=== PATIENT | female | born 1960 | race Caucasian/White ===

== ENCOUNTER 2016-08-18 14:31 | Outpatient (CLI) | payer MEDICARE, MEDICAID | END 2016-08-18 14:32 | disposition critical access hospital (66) | DX: R05 Cough (principal) | CPT/HCPCS: A0425; A0427 ==

== ENCOUNTER 2016-08-18 14:59 | Inpatient (IN) | payer MEDICARE, MEDICAID ==
[2016-08-18] MEDS ORDERED: predniSONE 20 MG TABLET PO STA (15:56)
[2016-08-18] MEDS ORDERED: ONDANSETRON 4 MG/2 ML VIAL IVP STA (15:56)
[2016-08-18] MEDS ORDERED: SODIUM CHLORIDE 0.9% 1,000 ML IV ONE (15:56)
[2016-08-18] MEDS ORDERED: IPRATROPIUM/ALBUTEROL 3 ML NEB INH STA (15:56)
[2016-08-18] MEDS ORDERED: HYDROcod/ACETAM 5/325 MG TABLET PO STA (15:57)
[2016-08-18] MEDS ORDERED: predniSONE 20 MG TABLET ONE (16:01)
[2016-08-18] MEDS ORDERED: ONDANSETRON 4 MG/2 ML VIAL ONE (16:01)
[2016-08-18] MEDS ORDERED: HYDROcod/ACETAM 5/325 MG TABLET ONE (16:01)
[2016-08-18] MEDS ORDERED: cefTRIAXone 1 GM in SODIUM CHLORIDE 0.9% MINIBAG 100 ML IV STA (17:14)
[2016-08-18] MEDS ORDERED: AZITHROMYCIN INJ 500 MG in SODIUM CHLORIDE 0.9% 250 ML IV STA (17:14)
[2016-08-18] MEDS ORDERED: cefTRIAXone 1 GM VIAL ONE (17:24)
[2016-08-18] MEDS ORDERED: SODIUM CHLORIDE 0.9% MINIBAG 100 ML IV ONE (17:24)
[2016-08-18] MEDS ORDERED: oxyCODONE 5 MG TABLET PO STA (17:45)
[2016-08-18] MEDS ORDERED: oxyCODONE 5 MG TABLET ONE (17:51)
[2016-08-18] MEDS ORDERED: ACETAMINOPHEN 325 MG TABLET PO PRN (18:03)
[2016-08-18] MEDS: tiZANidine 4 MG TABLET PO SCH (21:29)
[2016-08-18] MEDS: SODIUM CHLORIDE 0.9% 1,000 ML IV SCH (21:29)
[2016-08-18] MEDS: GABAPENTIN 300 MG CAPSULE PO SCH (21:29)
[2016-08-18] MEDS: NAPROXEN 250 MG TABLET PO SCH (21:29)
[2016-08-18] MEDS: ESCITALOPRAM 10 MG TABLET PO SCH (21:29)
[2016-08-18] MEDS: HYDROcod/ACETAM 5/325 MG TABLET PO PRN (21:30)
[2016-08-18] MEDS: SODIUM CHLORIDE FLUSH 0.9% 10 ML SYRINGE IVP SCH (21:36)
[2016-08-18] MEDS ORDERED: POTASSIUM CHLORIDE 20 MEQ TABLET PO SCH (21:37)
[2016-08-18] MEDS: guaiFENesin/CODEINE 5 ML UDC PO PRN (21:59)
[2016-08-19] MEDS: ONDANSETRON ODT 4 MG TABLET TL PRN (00:08)
[2016-08-19] MEDS: HYDROcod/ACETAM 5/325 MG TABLET PO PRN ×5 (01:24→20:30)
[2016-08-19] MEDS: BENZOCAINE/MENTHOL LOZENGE MM PRN ×4 (01:24→15:58)
[2016-08-19] MEDS: diphenhydrAMINE 25 MG CAPSULE PO PRN ×4 (04:16→20:30)
[2016-08-19] MEDS: guaiFENesin/CODEINE 5 ML UDC PO PRN ×4 (04:16→22:06)
[2016-08-19] MEDS: SODIUM CHLORIDE 0.9% 1,000 ML IV SCH ×2 (06:28→18:37)
[2016-08-19] MEDS: SODIUM CHLORIDE FLUSH 0.9% 10 ML SYRINGE IVP SCH ×3 (06:30→22:06)
[2016-08-19] MEDS: GABAPENTIN 300 MG CAPSULE PO SCH ×3 (06:30→22:06)
[2016-08-19] MEDS: methylPREDNISolone SUCCINATE 40 MG/ML VIAL IVP SCH ×3 (06:30→22:06)
[2016-08-19] MEDS: LEVOTHYROXINE 100 MCG TABLET PO SCH (06:31)
[2016-08-19] MEDS: tiZANidine 4 MG TABLET PO SCH ×3 (06:31→22:06)
[2016-08-19] MEDS: cefTRIAXone 2 GM in SODIUM CHLORIDE 0.9% MINIBAG 100 ML IV SCH (08:20)
[2016-08-19] MEDS: SACCHAROMYCES BOULARDII 250 MG CAPSULE PO SCH ×2 (08:20→16:01)
[2016-08-19] MEDS: NAPROXEN 250 MG TABLET PO SCH ×2 (08:20→20:29)
[2016-08-19] MEDS: ESCITALOPRAM 10 MG TABLET PO SCH ×2 (08:21→20:29)
[2016-08-19] MEDS: POLYETHYLENE GLYCOL 3350 17 GM PACKET PO SCH (08:21)
[2016-08-19] MEDS: busPIRone 5 MG TABLET PO SCH (08:21)
[2016-08-19] MEDS: ALBUTEROL NEB 2.5 MG/3 ML INH PRN ×3 (08:51→16:50)
[2016-08-19] MEDS ORDERED: BUTORPHANOL TOP PRN (09:00)
[2016-08-19] MEDS: AZITHROMYCIN INJ 500 MG in SODIUM CHLORIDE 0.9% 250 ML IV SCH (09:47)
[2016-08-19] MEDS: SODIUM CHLORIDE FLUSH 0.9% 10 ML SYRINGE IVP PRN (13:49)
[2016-08-19] MEDS: ONDANSETRON 4 MG/2 ML VIAL IVP PRN ×2 (15:57→22:06)
[2016-08-20] MEDS: TEMAZEPAM 15 MG CAPSULE PO PRN ×2 (00:06→23:55)
[2016-08-20] MEDS: HYDROcod/ACETAM 5/325 MG TABLET PO PRN ×5 (02:55→20:50)
[2016-08-20] MEDS: ONDANSETRON 4 MG/2 ML VIAL IVP PRN ×3 (02:56→20:50)
[2016-08-20] MEDS: BENZOCAINE/MENTHOL LOZENGE MM PRN ×2 (02:56→08:43)
[2016-08-20] MEDS: guaiFENesin/CODEINE 5 ML UDC PO PRN ×4 (04:03→23:55)
[2016-08-20] MEDS: LEVOTHYROXINE 100 MCG TABLET PO SCH (06:25)
[2016-08-20] MEDS: tiZANidine 4 MG TABLET PO SCH ×3 (06:26→22:07)
[2016-08-20] MEDS: methylPREDNISolone SUCCINATE 40 MG/ML VIAL IVP SCH (06:26)
[2016-08-20] MEDS: SODIUM CHLORIDE FLUSH 0.9% 10 ML SYRINGE IVP SCH ×3 (06:26→22:07)
[2016-08-20] MEDS: GABAPENTIN 300 MG CAPSULE PO SCH ×3 (06:26→22:07)
[2016-08-20] MEDS ORDERED: predniSONE 20 MG TABLET PO SCH ×2 (08:00)
[2016-08-20] MEDS ORDERED: SODIUM CHLORIDE 0.9% 1,000 ML IV SCH (08:00)
[2016-08-20] MEDS: SACCHAROMYCES BOULARDII 250 MG CAPSULE PO SCH ×2 (08:42→16:01)
[2016-08-20] MEDS: NAPROXEN 250 MG TABLET PO SCH ×2 (08:43→20:49)
[2016-08-20] MEDS: busPIRone 5 MG TABLET PO SCH (08:43)
[2016-08-20] MEDS: ESCITALOPRAM 10 MG TABLET PO SCH ×2 (08:43→20:50)
[2016-08-20] MEDS: diphenhydrAMINE 25 MG CAPSULE PO PRN ×3 (08:43→20:50)
[2016-08-20] MEDS: POLYETHYLENE GLYCOL 3350 17 GM PACKET PO SCH (08:44)
[2016-08-20] MEDS: cefTRIAXone 2 GM in SODIUM CHLORIDE 0.9% MINIBAG 100 ML IV SCH (08:44)
[2016-08-20] MEDS: SODIUM CHLORIDE FLUSH 0.9% 10 ML SYRINGE IVP PRN ×3 (08:47→23:55)
[2016-08-20] MEDS: AZITHROMYCIN INJ 500 MG in SODIUM CHLORIDE 0.9% 250 ML IV SCH (10:28)
[2016-08-20] MEDS ORDERED: ALBUTEROL NEB 2.5 MG/3 ML INH PRN (10:40)
[2016-08-20] MEDS: HYDROmorphone 1 MG/ML SYRINGE IVP PRN ×2 (22:05→23:55)
[2016-08-20] MEDS: ALBUTEROL NEB 2.5 MG/3 ML INH PRN (23:47)
[2016-08-21] MEDS: ONDANSETRON ODT 4 MG TABLET TL PRN (02:06)
[2016-08-21] MEDS: guaiFENesin/CODEINE 5 ML UDC PO PRN (06:14)
[2016-08-21] MEDS: GABAPENTIN 300 MG CAPSULE PO SCH ×2 (06:15→14:15)
[2016-08-21] MEDS: tiZANidine 4 MG TABLET PO SCH ×2 (06:15→14:15)
[2016-08-21] MEDS: LEVOTHYROXINE 100 MCG TABLET PO SCH (06:15)
[2016-08-21] MEDS: SODIUM CHLORIDE FLUSH 0.9% 10 ML SYRINGE IVP SCH ×2 (06:16→14:15)
[2016-08-21] MEDS ORDERED: hydrALAZINE INJ 20 MG/ML VIAL IVP SCH (06:21)
[2016-08-21] MEDS: HYDROmorphone 1 MG/ML SYRINGE IVP PRN ×4 (06:23→14:15)
[2016-08-21] MEDS: HYDROcod/ACETAM 5/325 MG TABLET PO PRN (07:50)
[2016-08-21] MEDS: SACCHAROMYCES BOULARDII 250 MG CAPSULE PO SCH (07:50)
[2016-08-21] MEDS ORDERED: predniSONE 20 MG TABLET PO SCH (08:00)
[2016-08-21] MEDS: SODIUM CHLORIDE FLUSH 0.9% 10 ML SYRINGE IVP PRN ×2 (08:53→10:31)
[2016-08-21] MEDS ORDERED: NIFEdipine ER 30 MG TABLET PO SCH (09:00)
[2016-08-21] MEDS ORDERED: AZITHROMYCIN 250 MG TABLET PO SCH (09:00)
[2016-08-21] MEDS: NAPROXEN 250 MG TABLET PO SCH (09:18)
[2016-08-21] MEDS: ESCITALOPRAM 10 MG TABLET PO SCH (09:18)
[2016-08-21] MEDS: cefTRIAXone 2 GM in SODIUM CHLORIDE 0.9% MINIBAG 100 ML IV SCH (09:19)
[2016-08-21] MEDS: busPIRone 5 MG TABLET PO SCH (09:19)
[2016-08-21] MEDS: POLYETHYLENE GLYCOL 3350 17 GM PACKET PO SCH (09:19)
[2016-08-21] MEDS ORDERED: DOCUSATE SODIUM 250 MG CAPSULE PO ONE (10:30)
[2016-08-21] MEDS: ONDANSETRON 4 MG/2 ML VIAL IVP PRN (11:31)
[2016-08-21] MEDS: ALBUTEROL NEB 2.5 MG/3 ML INH PRN (12:46)
== END 2016-08-21 15:00 | disposition home or self-care (01) | DRG 190 ==
DX: J44.0 Chronic obstructive pulmonary disease with (acute) lower respiratory infection (principal); J18.1 Lobar pneumonia, unspecified organism; J18.9 Pneumonia, unspecified organism; R09.02 Hypoxemia; F17.200 Nicotine dependence, unspecified, uncomplicated; J96.01 Acute respiratory failure with hypoxia; N17.9 Acute kidney failure, unspecified; E27.40 Unspecified adrenocortical insufficiency; Z68.43 Body mass index [BMI] 50.0-59.9, adult; J44.1 Chronic obstructive pulmonary disease with (acute) exacerbation; G43.909 Migraine, unspecified, not intractable, without status migrainosus; I10 Essential (primary) hypertension; F31.9 Bipolar disorder, unspecified; E86.0 Dehydration; E87.6 Hypokalemia; E66.9 Obesity, unspecified; E03.9 Hypothyroidism, unspecified; F43.10 Post-traumatic stress disorder, unspecified; F60.3 Borderline personality disorder; F42.9 Obsessive-compulsive disorder, unspecified; F41.9 Anxiety disorder, unspecified; G40.909 Epilepsy, unspecified, not intractable, without status epilepticus; Z86.14 Personal history of Methicillin resistant Staphylococcus aureus infection; Z87.891 Personal history of nicotine dependence; Z91.5 Personal history of self-harm

== ENCOUNTER 2016-11-25 09:53 | Outpatient (CLI) | payer MEDICARE, MEDICAID | END 2016-11-25 09:54 | disposition critical access hospital (66) | LOC: EMS 09:53 | PROVIDERS: ATTEND Surgery | DX: R07.9 Chest pain, unspecified (principal) | CPT/HCPCS: A0425; A0427 ==

== ENCOUNTER 2016-11-25 10:16 | Emergency (ER) | payer MEDICARE, MEDICAID ==
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
[2016-11-25] MEDS ORDERED: MAG HYDROX/AL HYDROX/SIMETH 30 ML UDC PO STA (11:10)
[2016-11-25] MEDS ORDERED: ONDANSETRON 4 MG/2 ML VIAL IVP STA (11:10)
[2016-11-25] MEDS ORDERED: PHENobarb/HYOSCY/ATROPINE/SCOP 5 ML SYRINGE PO STA (11:11)
[2016-11-25] MEDS ORDERED: LIDOCAINE VISCOUS 2% 15 ML UDC MM STA (11:11)
[2016-11-25] MEDS ORDERED: ONDANSETRON 4 MG/2 ML VIAL ONE (11:20)
[2016-11-25] MEDS ORDERED: PHENobarb/HYOSCY/ATROPINE/SCOP 5 ML SYRINGE PO ONE (11:20)
[2016-11-25] MEDS ORDERED: MAG HYDROX/AL HYDROX/SIMETH 30 ML UDC ONE (11:21)
[2016-11-25] MEDS ORDERED: LIDOCAINE VISCOUS 2% 15 ML UDC MM ONE (11:21)
[2016-11-25 11:36] LABS: BASOPHILS # (AUTO) 0.1 10^3/uL (0.0-0.1); BASOPHILS % (AUTO) 1.4 %; EOSINOPHILS # (AUTO) 0.3 10^3/uL (0.0-0.7); EOSINOPHILS % (AUTO) 2.8 %; HCT - HEMATOCRIT 43.5 % (37.0-47.0); HGB - HEMOGLOBIN 14.4 g/dL (12.0-16.0); LYMPHOCYTES # (AUTO) 2.8 10^3/uL (1.5-3.5); LYMPHOCYTES % (AUTO) 31.1 %; MEAN CORPUSCULAR HEMOGLOBIN 27.7 pg (27.0-31.0); MEAN CORPUSCULAR HGB CONC 33.1 g/dL (32.0-36.0); MEAN CORPUSCULAR VOLUME 83.8 fL (81.0-99.0); MEAN PLATELET VOLUME 7.6 fL (7.9-10.8); MONOCYTES # (AUTO) 0.6 10^3/uL (0.0-1.0); MONOCYTES % (AUTO) 6.9 %; NEUTROPHILS # (AUTO) 5.2 10^3/uL (1.5-6.6); NEUTROPHILS % (AUTO) 57.8 %; RED BLOOD COUNT 5.19 10^6/uL (4.20-5.40); RED CELL DISTRIBUTION WIDTH 14.6 % (12.0-15.0); UNCORRECTED WHITE BLOOD COUNT 9.1 x10^3/uL; WHITE BLOOD COUNT 9.1 x10^3/uL (4.8-10.8)
[2016-11-25] MEDS ORDERED: HYDROmorphone 1 MG/ML SYRINGE IVP STA ×2 (11:43→12:46)
[2016-11-25 11:47] LABS: ALBUMIN/GLOBULIN RATIO 1.2 (1.0-2.2); BILIRUBIN,TOTAL 0.4 mg/dL (0.2-1.0); CALCIUM 9.6 mg/dL (8.5-10.3); CREATININE 0.9 mg/dL (0.4-1.0); POTASSIUM 4.1 mmol/L (3.5-5.0); TOTAL PROTEIN 6.9 g/dL (6.7-8.2)
[2016-11-25] MEDS ORDERED: HYDROmorphone 1 MG/ML SYRINGE ONE ×2 (11:52→12:52)
--- NOTE | 2016-11-25 12:25 | XRAY Preliminary Report ---
Exam: XR Chest 1 View IMPRESSION: 1. Negative for new pulmonary opacity or acute cardiopulmonary process. 2. Mild cardiomegaly and persistent moderately sized opacity abutting the right heart border, suggest ing persistent opacity, nonspecific infiltrate, in the right middle lobe versus right pericardial mas s, recommend chest CT with IV contrast for further characterization. [facility] SITE ID: [id number]
--- NOTE | 2016-11-25 12:28 | XRAY Report ---
EXAM: CHEST RADIOGRAPHY EXAM DATE: 11/25/2016 11:55 AM. CLINICAL HISTORY: Chest pain. COMPARISON: 08/18/2016. TECHNIQUE: 1 view. FINDINGS: Lungs/Pleura: The moderately size focal opacity abutting the right heart border is unchanged. No new focal opacities evident. No pleural effusion. No pneumothorax. Mediastinum: The mild cardiomegaly is stable in appearance. IMPRESSION: 1. Negative for new pulmonary opacity or acute cardiopulmonary process. 2. Mild cardiomegaly and persistent moderately sized opacity abutting the right heart border, suggest ing persistent opacity, nonspecific infiltrate, in the right middle lobe versus right pericardial mas s, recommend chest CT with IV contrast for further characterization. [facility] Referring Provider Line: [phone] SITE ID: [id number]
[2016-11-25] MEDS ORDERED: PROMETHAZINE INJ 12.5 MG in SODIUM CHLORIDE 0.9% 50 ML IV STA ×2 (12:45→15:17)
[2016-11-25] MEDS ORDERED: PROMETHAZINE 25 MG/1 ML VIAL ONE ×2 (12:52→15:18)
[2016-11-25] MEDS ORDERED: IOPAMIDOL-300 100 ML VIAL IVP ONE (14:24)
[2016-11-25] MEDS ORDERED: PROMETHAZINE 25 MG/1 ML VIAL IM STA (14:54)
[2016-11-25] MEDS ORDERED: LORazepam 2 MG/ML SYRINGE IVP STA (14:56)
--- NOTE | 2016-11-25 15:00 | CT Preliminary Report ---
Exam: CT Chest W/ IMPRESSION: Normal chest CT. [facility] SITE ID: [id number]
[2016-11-25 15:01] VITALS: BP 148/77
--- NOTE | 2016-11-25 15:02 | CT Report ---
EXAM: CT CHEST EXAM DATE: 11/25/2016 02:23 PM. CLINICAL HISTORY: Chest pain. COMPARISONS: 11/25/2016. TECHNIQUE: Routine helical CT imaging was performed through the chest. IV contrast: 80 cc Isovue-300. Reconstructions: Coronal and sagittal. In accordance with CT protocol optimization, one or more of the following dose reduction techniques w ere utilized for this exam: automated exposure control, adjustment of mA and/or KV based on patient s ize, or use of iterative reconstructive technique. FINDINGS: Lungs/Pleura: No nodules, bronchial thickening, consolidation, or edema. Pulmonary vasculature is nor mal. No pericardial or pleural effusion. No pneumothorax. Mediastinum: Normal. No adenopathy or masses. The heart and great vessels are normal. There is promin ent epicardiac fat which likely accounts for the opacity seen on accompanying chest x-ray. Bones: Unremarkable. Visualized Abdomen: Unremarkable. Other: None. IMPRESSION: Normal chest CT. [facility] Referring Provider Line: [phone] SITE ID: [id number]
[2016-11-25] MEDS ORDERED: LORazepam 2 MG/ML SYRINGE ONE (15:18)
== END 2016-11-25 15:56 | disposition home or self-care (01) ==
LOC: EDUNIT# → ED 10:16
DX: R07.9 Chest pain, unspecified (principal); J44.9 Chronic obstructive pulmonary disease, unspecified; F41.9 Anxiety disorder, unspecified; Z87.891 Personal history of nicotine dependence; M79.7 Fibromyalgia; E03.9 Hypothyroidism, unspecified
CPT/HCPCS: 36415; 71010; 71260; 80053; 83690; 84484; 85025; 93005; 96365; 96366; 96375; 96376; 99284; 99285; A9270; J1170; J2060; J7040; Q9967

== ENCOUNTER 2017-03-13 11:42 | Outpatient (CLI) | payer MEDICARE, MEDICAID | END 2017-03-13 11:43 | disposition critical access hospital (66) | LOC: EMS 11:42 | PROVIDERS: ATTEND Surgery | DX: R06.02 Shortness of breath (principal); R05 Cough | CPT/HCPCS: A0425; A0427 ==

== ENCOUNTER 2017-03-13 12:33 | Emergency (ER) | payer MEDICARE, MEDICAID ==
[2017-03-13] MEDS ORDERED: IPRATROPIUM/ALBUTEROL 3 ML NEB INH STA (13:17)
[2017-03-13] MEDS ORDERED: ONDANSETRON 4 MG/2 ML VIAL IVP STA ×2 (13:17→15:07)
[2017-03-13] MEDS ORDERED: HYDROmorphone 1 MG/ML SYRINGE IVP STA ×2 (13:17→16:41)
--- NOTE | 2017-03-13 13:19 | ED Physician Documentation ---
PD HPI CHEST PAIN - Stated complaint Stated Complaint: SOA - Chief complaint Chief Complaint: Resp - History obtained from History obtained from: Patient, EMS - History of Present Illness Timing - onset: Other (She has had 5 days of nonproductive cough, central nonradiating chest pain "like an elephant sitting on my chest." It is associated with non-positional shortness of breath and mild bilateral pedal edema. She is worried that she might have CHF, she started trazodone about a month ago, it made her feel bad and she stopped it but she also looked up side effects noting that CHF was a rare side effect. She has never had heart problems. She was brought in by ambulance, EKG was nonischemic in route.) Review of Systems Ten Systems: 10 systems reviewed and negative Constitutional: reports: Fatigue. denies: Fever, Chills, Sweats Ears: denies: Ear pain Nose: denies: Rhinorrhea / runny nose, Congestion Throat: denies: Sore throat Cardiac: reports: Chest pain / pressure, Pedal edema. denies: Palpitations, Calf pain Respiratory: reports: Dyspnea, Cough GI: reports: Vomiting, Diarrhea. denies: Abdominal Pain PD PAST MEDICAL HISTORY - Past Medical History Past Medical History: Yes Cardiovascular: Other Respiratory: COPD Neuro: Headache/migraine, Seizure disorder Endocrine/Autoimmune: HyPOthyroidism, Other GI: None CHANGE LEAD: None : None HEENT: None Psych: Depression, Anxiety, Bipolar disorder, Post traumatic stress disorder, Obsessive compulsive disorder, Other Musculoskeletal: Osteoarthritis, Fibromyalgia Derm: None - Past Surgical History Past Surgical History: Yes Ortho: Arthroscopic surgery /CHANGE LEAD: section, Hysterectomy, Oophrectomy, Breast reduction HEENT: Tonsil/Adenoidectomy - Present Medications Home Medications: Ambulatory Orders Medication Instructions Recorded Confirmed Escitalopram [Lexapro] 20 mg ORAL BID 04/01/14 11/25/16 Estrogens, Conjugated [Premarin] 1.25 mg ORAL DAILY 04/01/14 03/13/17 Gabapentin 300 mg ORAL TID 04/01/14 03/13/17 D-Amphetamine Xr 20 mg ORAL DAILY 11/25/16 03/13/17 Gabapentin 1 cap ORAL TID 11/25/16 03/13/17 HYDROcod/ACETAM 5/325 [[place] 5/325] 1 tab ORAL PRN PRN 11/25/16 03/13/17 Loratadine 1 tab ORAL DAILY 11/25/16 03/13/17 Ondansetron HCl [Zofran] 8 mg SQ PRN PRN 11/25/16 03/13/17 Albuterol Sulfate [Proventil Hfa 1 - 2 puffs IH Q4H PRN #1 03/13/17 Inhaler] hfa.aer.ad Azithromycin [Zithromax] 250 mg PO DAILY #4 tablet 03/13/17 Escitalopram Oxalate [Lexapro] 20 mg PO TID 03/13/17 03/13/17 HYDROcod/ACETAM 5/325 [[place] 5/325] 1 - 2 ea PO Q6H PRN #15 tablet 03/13/17 Levothyroxine [Synthroid] 4 tab PO DAILY 03/13/17 03/13/17 Ondansetron HCl [Zofran] 4 mg PO Q6H PRN #10 tablet 03/13/17 busPIRone [Buspar] 2 tab PO DAILY 03/13/17 03/13/17 predniSONE [Deltasone] 60 mg PO DAILY 5 Days tablet 03/13/17 - Allergies Allergies/Adverse Reactions: Allergies Allergy/AdvReac Type Severity Reaction Status Date / Time chlorpromazine HCl * Allergy Unknown Verified 03/13/17 13:20 [From Thorazine] droperidol [From Inapsine] Allergy Unknown Verified 03/13/17 13:20 ketorolac tromethamine * Allergy Unknown Verified 03/13/17 13:20 [From Toradol] meperidine HCl * Allergy Unknown Verified 03/13/17 13:20 [From Demerol] metoclopramide HCl * Allergy Unknown Verified 03/13/17 13:20 [From Reglan] morphine Allergy Unknown Verified 03/13/17 13:20 prochlorperazine edisylate * Allergy Unknown Verified 03/13/17 13:20 [From Compazine] prochlorperazine maleate * Allergy Unknown Verified 03/13/17 13:20 [From Compazine] [id number] Antimigraine Allergy Unknown Verified 03/13/17 13:20 Agents - Social History Does the pt smoke?: No Smoking Status: Never smoker Does the pt drink ETOH?: No Does the pt have substance abuse?: No - Immunizations Immunizations are current?: Yes Immunizations: TDAP current <10years, Other immun not current - POLST Patient has POLST: No POLST Status: Full Code PD ED PE NORMAL - Vitals Vital signs reviewed: Yes - General General: Alert and oriented X 3, No acute distress - HEENT HEENT: PERRL, Ears normal, Moist mucous membranes - Neck Neck: Supple, no meningeal sign, No bony TTP, Other (No obvious JVD but she is thick necked.) - Cardiac Cardiac: RRR, No murmur - Respiratory Respiratory: No respiratory distress, Other (Mild diffuse wheezes, worse on the Left than the right with good air motion.) - Derm Derm: Normal color, Warm and dry - Extremities Extremities: No calf tenderness / cord, Other (I do not appreciate any pedal edema) - Neuro Neuro: Alert and oriented X 3, Normal speech Results - Vitals Vitals: Vital Signs - 24 hr 03/13/17 03/13/17 03/13/17 12:36 13:34 14:37 Temperature 37.3 C Heart Rate 92 108 H 103 H Respiratory 22 20 28 H Rate Blood Pressure 157/51 H 131/83 H O2 Saturation 94 91 L Oxygen O2 Source Room air - EKG (time done) 1328 Rate: Rate (enter#) (83) Rhythm: NSR, LAE Intervals: Normal [place] QRS: Normal Ischemia: Non specific changes (Flat T waves inferiorly and anteriorly which are unchanged compared with November 25, 2016. No ischemic ST elevations or depressions.) Compare to prior EKG: Unchanged from prior EKG Computer interpretation: Agree with computer - Labs Labs: Laboratory Tests 03/13/17 03/13/17 03/13/17 14:18 14:18 14:18 WBC 13.8 H RBC 4.45 Hgb 12.5 Hct 37.2 MCV 83.5 MCH 28.1 MCHC 33.6 RDW 14.8 Plt Count 216 MPV 7.2 L Neut # 11.5 H Lymph # 1.1 L [place] # 1.0 Eos # 0.2 Baso # 0.1 Absolute Nucleated RBC 0.02 Nucleated RBC % 0.1 Sodium 134 L Potassium 3.6 Chloride 98 L Carbon Dioxide 23 Anion Gap 13.0 BUN 25 H Creatinine 1.8 H Estimated GFR (MDRD) 29 L Glucose 136 H Calcium 9.2 Total Bilirubin 0.5 AST 36 ALT 25 Alkaline Phosphatase 78 Troponin I < 0.04 Total Protein 6.9 Albumin 3.2 Globulin 3.7 Albumin/Globulin Ratio 0.9 L Lipase 15 L - Rads (name of study) 2v chest Radiology: EMP read contemporaneously (Perihilar infiltrates consistent with bronchitis or mycoplasmal pneumonia) PD MEDICAL DECISION MAKING - ED course ED course: 56-year-old woman presents with URI and lower respiratory symptoms, she is worried about CHF but there is really no evidence of this on examination. X- ray was consistent with bronchitis or viral process or mycoplasmal pneumonia for which she was treated with Zithromax and steroids. Departure - Departure Disposition: Home, Self Care Clinical Impression: CONSTANTIN (acute kidney injury) Chest pain Qualifiers: Chest pain type: chest pain on breathing Qualified Code(s): R07.1 - Chest pain on breathing; R07.81 - Pleurodynia Condition: Good Record reviewed to determine appropriate education?: Yes Instructions: Pneumonia Dc Prescriptions: Albuterol Sulfate [Proventil Hfa Inhaler] 1 - 2 puffs IH Q4H PRN #1 hfa.aer.ad PRN Reason: Cough Azithromycin [Zithromax] 250 mg PO DAILY #4 tablet HYDROcod/ACETAM 5/325 [[place] 5/325] 1 - 2 ea PO Q6H PRN #15 tablet PRN Reason: Pain Ondansetron HCl [Zofran] 4 mg PO Q6H PRN #10 tablet PRN Reason: Nausea / Vomiting predniSONE [Deltasone] 60 mg PO DAILY 5 Days tablet Comments: Drink plenty of fluids, return if worse, follow-up with your doctor in 2 days for recheck.
[2017-03-13] MEDS ORDERED: IPRATROPIUM/ALBUTEROL 3 ML NEB INH ONE (13:31)
[2017-03-13] MEDS ORDERED: HYDROmorphone 1 MG/ML SYRINGE ONE ×3 (13:53→16:46)
[2017-03-13] MEDS ORDERED: ONDANSETRON 4 MG/2 ML VIAL ONE ×2 (13:54→15:18)
[2017-03-13 14:25] LABS: BASOPHILS # (AUTO) 0.1 10^3/uL (0.0-0.1); BASOPHILS % (AUTO) 0.5 %; EOSINOPHILS # (AUTO) 0.2 10^3/uL (0.0-0.7); EOSINOPHILS % (AUTO) 1.2 %; HCT - HEMATOCRIT 37.2 % (37.0-47.0); HGB - HEMOGLOBIN 12.5 g/dL (12.0-16.0); LYMPHOCYTES # (AUTO) 1.1 10^3/uL (1.5-3.5); MEAN CORPUSCULAR HEMOGLOBIN 28.1 pg (27.0-31.0); MEAN CORPUSCULAR HGB CONC 33.6 g/dL (32.0-36.0); MEAN CORPUSCULAR VOLUME 83.5 fL (81.0-99.0); MEAN PLATELET VOLUME 7.2 fL (7.9-10.8); MONOCYTES % (AUTO) 6.9 %; NEUTROPHILS # (AUTO) 11.5 10^3/uL (1.5-6.6); NEUTROPHILS % (AUTO) 83.4 %; NUCLEATED RED BLOOD CELLS AUTO 0.1 /100WBC; RED BLOOD COUNT 4.45 10^6/uL (4.20-5.40); RED CELL DISTRIBUTION WIDTH 14.8 % (12.0-15.0); UNCORRECTED WHITE BLOOD COUNT 13.8 x10^3/uL; WHITE BLOOD COUNT 13.8 x10^3/uL (4.8-10.8)
[2017-03-13 14:42] LABS: ALBUMIN/GLOBULIN RATIO 0.9 (1.0-2.2); BILIRUBIN,TOTAL 0.5 mg/dL (0.2-1.0); CALCIUM 9.2 mg/dL (8.5-10.3); CREATININE 1.8 mg/dL (0.4-1.0); POTASSIUM 3.6 mmol/L (3.5-5.0); TOTAL PROTEIN 6.9 g/dL (6.7-8.2)
[2017-03-13] MEDS ORDERED: DEXAMETHASONE 10 MG/ML VIAL IVP STA (15:07)
[2017-03-13] MEDS ORDERED: AZITHROMYCIN 250 MG TABLET PO STA (15:07)
--- NOTE | 2017-03-13 15:07 | XRAY Preliminary Report ---
Exam: XR CHEST 2 VIEW PA/LAT IMPRESSION: Interstitial prominence, most likely bronchitis or an interstitial pneumonitis, probably viral or mycoplasmal. [facility] The above findings were discussed with Dr. Dominguez by Dr. Romero Jessica at 15:06 hrs on 03/13/17. SITE ID: [id number]
[2017-03-13] MEDS ORDERED: SODIUM CHLORIDE 0.9% 1,000 ML IV ONE (15:09)
--- NOTE | 2017-03-13 15:10 | XRAY Report ---
EXAM: CHEST RADIOGRAPHY EXAM DATE: 03/13/2017 01:07 PM. CLINICAL HISTORY: Chest congestion/cough. COMPARISON: 08/18/2016. Also CT scan dated 11/25/2016. TECHNIQUE: 2 views. FINDINGS: Lungs/Pleura: Diffuse prominence of interstitial markings and some peribronchial cuffing. No consolid ation, effusion, or pneumothorax. Obscuration of right and left heart margins shown on CT scan to be cardiac fat pads. Mediastinum: Mild cardiomegaly. Upper lobe vessels not distended. Other: Degenerative changes. IMPRESSION: Interstitial prominence, most likely bronchitis or an interstitial pneumonitis, probably viral or mycoplasmal. [facility] The above findings were discussed with Dr. Dominguez by Dr. Romero Jessica at 15:06 hrs on 03/13/17. Referring Provider Line: [phone] SITE ID: [id number]
[2017-03-13] MEDS: HYDROmorphone 1 MG/ML SYRINGE IVP STA ×2 (15:17→16:40)
[2017-03-13] MEDS ORDERED: AZITHROMYCIN 250 MG TABLET PO ONE (15:18)
[2017-03-13] MEDS ORDERED: DEXAMETHASONE 10 MG/ML VIAL ONE (15:19)
[2017-03-13 17:17] VITALS: BP 136/76
== END 2017-03-13 17:17 | disposition home or self-care (01) ==
LOC: EDUNIT# → ED 12:33
DX: N17.9 Acute kidney failure, unspecified (principal); R07.1 Chest pain on breathing; J44.9 Chronic obstructive pulmonary disease, unspecified; E03.9 Hypothyroidism, unspecified; M19.90 Unspecified osteoarthritis, unspecified site; M79.7 Fibromyalgia
CPT/HCPCS: 71020; 80053; 83690; 84484; 85025; 93005; 94664; 96361; 96374; 96375; 96376; 99284; A9270; J1170; J7620; 36415; 85379

== ENCOUNTER 2018-03-09 21:25 | Outpatient (CLI) | payer MEDICARE, MEDICAID | END 2018-03-09 21:26 | disposition critical access hospital (66) | LOC: EMS 21:25 | PROVIDERS: ATTEND Surgery | DX: R47.81 Slurred speech (principal); R41.0 Disorientation, unspecified; R51 Headache; R03.1 Nonspecific low blood-pressure reading | CPT/HCPCS: A0425; A0427 ==

== ENCOUNTER 2018-03-09 21:45 | Inpatient (IN) | payer MEDICARE, MEDICAID ==
--- NOTE | 2018-03-09 22:07 | ED Physician Documentation ---
PD HPI ALTERED MENTAL STATUS - Stated complaint Stated Complaint: OD/DIZZY - Chief complaint Chief Complaint: Neuro - History obtained from History obtained from: Patient - History of Present Illness Timing - onset: How many days ago (2) Timing - duration: Days (2) Timing - details: Gradual onset, Intermittant Quality / character: Confused. No: Less responsive, Unresponsive, Disoriented, Memory Loss, Agitated, Combative, Hallucinating Associated symptoms: Fever, Headache, Urinary sx, General weakness. No: Stiff neck, Dyspnea, Cough, NVD, Focal weakness, Seizure activity, Syncope Contributing factors: No: Anticoagulated, Diabetic, Cancer, COPD, New medication, Recent med change, Recent illness, Recent injury, Intoxicated, Substance abuse, Known psych illness, Known dementia Basline status: Alert and oriented X 3, Ambulatory, Cane, Home Similar symptoms before: Has not had sx before Recently seen: Not recently seen - Additional information Additional information: 57-year-old female with history of COPD, thyroid disease,hysterectomy, breast reduction and tonsillectomy brought in by EMS for possible overdose of her medication tizanidine and trazodone the past 2 days as reported by patient's daughter. Patient denies taking extra medication. She did say that she has been having lightheadedness , headache and tactile fever the past 3 days. She also noted that she is urinating a lot and her urine is foul-smelling. Today in the bathroom her legs felt weak so she fell and landed on her buttocks. Patient denies any head injury or loss of consciousness.Patient denies suicidal ideations. Review of Systems Ten Systems: 10 systems reviewed and negative Constitutional: reports: Fever. denies: Myalgias Eyes: denies: Loss of vision Ears: denies: Ear pain Nose: denies: Rhinorrhea / runny nose, Congestion Throat: denies: Sore throat Cardiac: denies: Chest pain / pressure Respiratory: denies: Dyspnea, Cough GI: denies: Abdominal Pain, Nausea, Vomiting : reports: Dysuria, Frequency. denies: Incontinent Skin: denies: Rash Musculoskeletal: reports: Back pain (Chronic). denies: Neck pain, Extremity pain Neurologic: reports: Generalized weakness, Confused, Altered mental status, Headache. denies: Focal weakness, Numbness, Difficulty speaking, Syncope, Seizure, Head injury, LOC Psychiatric: denies: Suicidal, Hallucinations PD PAST MEDICAL HISTORY - Past Medical History Cardiovascular: Other Respiratory: COPD Endocrine/Autoimmune: HyPOthyroidism, Other GI: None TWISTER HAND: None : None HEENT: None Psych: Depression, Anxiety, Bipolar disorder, Post traumatic stress disorder, Obsessive compulsive disorder, Other Musculoskeletal: Osteoarthritis, Fibromyalgia Derm: None - Past Surgical History Past Surgical History: Yes Ortho: Arthroscopic surgery /TWISTER HAND: section, Hysterectomy, Oophrectomy, Breast reduction HEENT: Tonsil/Adenoidectomy - Present Medications Home Medications: Ambulatory Orders Medication Instructions Recorded Confirmed RX: Escitalopram [Lexapro] 20 mg ORAL DAILY 04/01/14 03/09/18 RX: Estrogens, Conjugated 1.25 mg ORAL DAILY 04/01/14 03/09/18 [Premarin] Ondansetron HCl [Zofran] 8 mg SQ PRN PRN 11/25/16 03/09/18 RX: Gabapentin 1 cap ORAL TID 11/25/16 03/09/18 RX: Albuterol Sulfate [Proventil 1 - 2 puffs IH Q4H PRN #1 03/13/17 03/09/18 Hfa Inhaler] [email or web address] RX: Levothyroxine [Synthroid] 4 tab PO DAILY 03/13/17 03/09/18 busPIRone [Buspar] 2 tab PO DAILY 03/13/17 03/09/18 - Allergies Allergies/Adverse Reactions: Allergies Allergy/AdvReac Type Severity Reaction Status Date / Time chlorpromazine HCl * Allergy Unknown Verified 03/13/17 13:20 [From Thorazine] droperidol [From Inapsine] Allergy Unknown Verified 03/13/17 13:20 ketorolac tromethamine * Allergy Unknown Verified 03/13/17 13:20 [From Toradol] meperidine HCl * Allergy Unknown Verified 03/13/17 13:20 [From Demerol] metoclopramide HCl * Allergy Unknown Verified 03/13/17 13:20 [From Reglan] morphine Allergy Unknown Verified 03/13/17 13:20 prochlorperazine edisylate * Allergy Unknown Verified 03/13/17 13:20 [From Compazine] prochlorperazine maleate * Allergy Unknown Verified 03/13/17 13:20 [From Compazine] Ehudjzhe-4-AT4 Antimigraine Allergy Unknown Verified 03/13/17 13:20 Agents - Social History Does the pt smoke?: No Smoking Status: Never smoker Does the pt drink ETOH?: No Does the pt have substance abuse?: No - Immunizations Immunizations are current?: Yes Immunizations: TDAP current <10years, Other immun not current - POLST Patient has POLST: No POLST Status: Full Code PD ED PE NORMAL - Vitals Vital signs reviewed: Yes - General General: Alert and oriented X 3, No acute distress, Well developed/nourished, Other (Morbidly obese) - HEENT HEENT: Atraumatic, PERRL, EOMI, Moist mucous membranes, Pharynx benign - Neck Neck: Supple, no meningeal sign, No bony TTP - Cardiac Cardiac: RRR, No murmur - Respiratory Respiratory: No respiratory distress, Clear bilaterally - Abdomen Abdomen: Normal bowel sounds, Soft, Non tender, Non distended - Back Back: No CVA TTP, No spinal TTP - Derm Derm: Normal color, Warm and dry - Extremities Extremities: No deformity, No tenderness to palpate, Normal ROM s pain, No edema - Neuro Neuro: Alert and oriented X 3, 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, No motor deficit, No sensory deficit, Normal speech - Psych Psych: Normal mood, Normal affect Results - Vitals Vitals: Vital Signs - 24 hr 03/09/18 03/09/18 03/09/18 21:47 22:00 23:48 Temperature 36.1 C L 36.2 C L Heart Rate 77 77 74 Respiratory 21 20 22 Rate Blood Pressure 96/60 96/60 98/67 O2 Saturation 96 95 96 03/10/18 03/10/18 00:20 00:41 Temperature 36.8 C Heart Rate 72 71 Respiratory 18 19 Rate Blood Pressure 88/73 L 91/62 O2 Saturation 97 96 Oxygen O2 Source Room air - EKG (time done) 2158 Rate: Rate (enter#) Rhythm: NSR [place]: Normal Intervals: Normal [place] QRS: Normal Ischemia: Non specific changes - Labs Labs: Laboratory Tests 03/09/18 03/09/18 03/09/18 22:15 22:15 22:15 WBC 29.2 H RBC 3.95 L Hgb 11.1 L Hct 33.5 L MCV 84.8 MCH 28.1 MCHC 33.1 RDW 14.3 Plt Count 213 MPV 7.3 L Neut # (Auto) Not Reportable Lymph # (Auto) Not Reportable [place] # (Auto) Not Reportable Eos # (Auto) Not Reportable Baso # (Auto) Not Reportable Absolute Nucleated RBC Not Reportable Total Counted 100 Band Neuts % (Manual) 15 H Abnorm Lymph % (Manual) 0 Metamyelocytes % 4 H Nucleated RBC % Not Reportable Neutrophils # (Manual) 25.7 H Lymphocytes # (Manual) 1.5 Monocytes # (Manual) 0.9 Eosinophils # (Manual) 0.0 Basophils # (Manual) 0.0 Differential Comment MANUAL DIFFERENTIAL Manual Slide Review Indicated Platelet Estimate NORMAL (130-450,000) Platelet Morphology NORMAL APPEARANCE RBC Morph Micro Appear NORMAL APPEARANCE Sodium 133 L Potassium 4.0 Chloride 97 L Carbon Dioxide 25 Anion Gap 11.0 BUN 26 H Creatinine 2.2 H Estimated GFR (MDRD) 23 L Glucose 159 H Lactic Acid Calcium 8.0 L Total Bilirubin 0.9 AST 21 ALT 16 Alkaline Phosphatase 55 Total Creatine Kinase Troponin I < 0.04 B-Natriuretic Peptide Total Protein 5.8 L Albumin 2.9 L Globulin 2.9 Albumin/Globulin Ratio 1.0 Lipase 15 L TSH Urine Color Urine Clarity Urine pH Ur Specific [place] Urine Protein Urine Glucose (UA) Urine Ketones Urine Occult Blood Urine Nitrite Urine Bilirubin Urine Urobilinogen Ur Leukocyte Esterase Urine RBC Urine WBC Ur Squamous Epith Cells Urine Bacteria Ur Microscopic Review Urine Culture Comments Salicylates < 6.0 Urine Opiates Screen Ur Oxycodone Screen Urine Methadone Screen Ur Propoxyphene Screen Acetaminophen < 10 L Ur Barbiturates Screen Ur Tricyclics Screen Ur Phencyclidine Scrn Ur Amphetamine Screen U Methamphetamines Scrn U Benzodiazepines Scrn Urine Cocaine Screen U Cannabinoids Screen Ethyl Alcohol < 5.0 03/09/18 03/09/18 03/09/18 22:15 22:15 22:15 WBC RBC Hgb Hct MCV MCH MCHC RDW Plt Count MPV Neut # (Auto) Lymph # (Auto) [place] # (Auto) Eos # (Auto) Baso # (Auto) Absolute Nucleated RBC Total Counted Band Neuts % (Manual) Abnorm Lymph % (Manual) Metamyelocytes % Nucleated RBC % Neutrophils # (Manual) Lymphocytes # (Manual) Monocytes # (Manual) Eosinophils # (Manual) Basophils # (Manual) Differential Comment Manual Slide Review Platelet Estimate Platelet Morphology RBC Morph Micro Appear Sodium Potassium Chloride Carbon Dioxide Anion Gap BUN Creatinine Estimated GFR (MDRD) Glucose Lactic Acid Calcium Total Bilirubin AST ALT Alkaline Phosphatase Total Creatine Kinase 54 Troponin I B-Natriuretic Peptide 148 H Total Protein Albumin Globulin Albumin/Globulin Ratio Lipase TSH < 0.08 L Urine Color Urine Clarity Urine pH Ur Specific [place] Urine Protein Urine Glucose (UA) Urine Ketones Urine Occult Blood Urine Nitrite Urine Bilirubin Urine Urobilinogen Ur Leukocyte Esterase Urine RBC Urine WBC Ur Squamous Epith Cells Urine Bacteria Ur Microscopic Review Urine Culture Comments Salicylates Urine Opiates Screen Ur Oxycodone Screen Urine Methadone Screen Ur Propoxyphene Screen Acetaminophen Ur Barbiturates Screen Ur Tricyclics Screen Ur Phencyclidine Scrn Ur Amphetamine Screen U Methamphetamines Scrn U Benzodiazepines Scrn Urine Cocaine Screen U Cannabinoids Screen Ethyl Alcohol 03/09/18 03/10/18 23:31 01:05 WBC RBC Hgb Hct MCV MCH MCHC RDW Plt Count MPV Neut # (Auto) Lymph # (Auto) [place] # (Auto) Eos # (Auto) Baso # (Auto) Absolute Nucleated RBC Total Counted Band Neuts % (Manual) Abnorm Lymph % (Manual) Metamyelocytes % Nucleated RBC % Neutrophils # (Manual) Lymphocytes # (Manual) Monocytes # (Manual) Eosinophils # (Manual) Basophils # (Manual) Differential Comment Manual Slide Review Platelet Estimate Platelet Morphology RBC Morph Micro Appear Sodium Potassium Chloride Carbon Dioxide Anion Gap BUN Creatinine Estimated GFR (MDRD) Glucose Lactic Acid 2.9 H Calcium Total Bilirubin AST ALT Alkaline Phosphatase Total Creatine Kinase Troponin I B-Natriuretic Peptide Total Protein Albumin Globulin Albumin/Globulin Ratio Lipase TSH Urine Color YELLOW Urine Clarity CLOUDY Urine pH 6.0 Ur Specific [place] 1.025 Urine Protein 100 H Urine Glucose (UA) NEGATIVE Urine Ketones NEGATIVE Urine Occult Blood MODERATE H Urine Nitrite NEGATIVE Urine Bilirubin NEGATIVE Urine Urobilinogen 0.2 (NORMAL) Ur Leukocyte Esterase LARGE H Urine RBC 11-25 H Urine WBC >25 H Ur Squamous Epith Cells FEW Squamous Urine Bacteria Many H Ur Microscopic Review INDICATED Urine Culture Comments INDICATED Salicylates Urine Opiates Screen POSITIVE H Ur Oxycodone Screen NEGATIVE Urine Methadone Screen NEGATIVE Ur Propoxyphene Screen NEGATIVE Acetaminophen Ur Barbiturates Screen NEGATIVE Ur Tricyclics Screen NEGATIVE Ur Phencyclidine Scrn NEGATIVE Ur Amphetamine Screen NEGATIVE U Methamphetamines Scrn NEGATIVE U Benzodiazepines Scrn NEGATIVE Urine Cocaine Screen NEGATIVE U Cannabinoids Screen NEGATIVE Ethyl Alcohol PD MEDICAL DECISION MAKING - ED course Complexity details: reviewed results, re-evaluated patient, considered differential (UTI, pelvic fracture, intracranial bleed, electrolyte imbalance, overmedication, OD,Sepsis, pneumonia), d/w patient, d/w PMD ED course: 20-30 patient awake alert and oriented and updated on test results. Patient's WBC was 29 with bandemia and her chest x-ray was read as vascular congestion/ CHF. Because of the possible CHF only a liter of IV normal saline was given to the patient. Patient systolic blood pressure had ranged between 96-98. Patient informed me that her blood pressure is usually much higher than that. I did explain to her that because her peripheral veins were difficult to get blood and put IV catheter in that a central line may be beneficial to her especially since she may require vasopressors for hypotension. Explained the procedure to her including risk and benefits. Patient agreed to the procedure.[id number] patient signed consent for central line insertion. Prior to the procedure its noted that patient was diaphoretic. But afebrile. She continued to be awake and alert. Attempted twice to do an internal jugular central line. Even through ultrasound patient's IJ - each time the needle touches it The IJ moves away from the needle. Procedure was aborted. Patient did not have any complications. [id number] discussed with hospitalist Dr. Aponte including my attempt to do a central line.I inform her that anesthesia was called for this procedure. I also inform her I ordered Zosyn to cover for sepsis which most likely is from UTI based on patient's history. I inform her Stauffer catheter will be inserted. I inform her that I only gave a liter of normal saline because the radiologist was reading the x-ray as vascular congestion CHF. She will admit the patient to ICU. Departure - Departure Disposition: 66 [facility] DC/Xfer Clinical Impression: Sepsis associated hypotension, Renal insufficiency UTI (urinary tract infection) Qualifiers: Urinary tract infection type: acute cystitis Hematuria presence: without marco turia Qualified Code(s): N30.00 - Acute cystitis without hematuria Leukocytosis Qualifiers: Leukocytosis type: bandemia Qualified Code(s): D72.825 - Bandemia Condition: Fair Discharge Date/Time: 03/10/18 02:10
[2018-03-09 22:24] LABS: BASOPHILS % (AUTO) 0.4 %; EOSINOPHILS % (AUTO) 0.1 %; HGB - HEMOGLOBIN 11.1 g/dL (12.0-16.0); LYMPHOCYTES % (AUTO) 4.4 %; MEAN CORPUSCULAR HEMOGLOBIN 28.1 pg (27.0-31.0); MEAN CORPUSCULAR HGB CONC 33.1 g/dL (32.0-36.0); MEAN CORPUSCULAR VOLUME 84.8 fL (81.0-99.0); MEAN PLATELET VOLUME 7.3 fL (7.9-10.8); MONOCYTES % (AUTO) 5.7 %; NEUTROPHILS % (AUTO) 89.4 %; PLT - PLATELET COUNT 213 10^3/uL (130-450); RED BLOOD COUNT 3.95 10^6/uL (4.20-5.40); RED CELL DISTRIBUTION WIDTH 14.3 % (12.0-15.0); WHITE BLOOD COUNT 29.2 x10^3/uL (4.8-10.8)
[2018-03-09 22:30] LABS: ABNORMAL LYMPHS % (MANUAL) 0 %
[2018-03-09 22:37] LABS: ACETAMINOPHEN < 10 ug/mL (10-30); ALBUMIN 2.9 g/dL (3.2-5.5); ALKALINE PHOSPHATASE 55 IU/L (42-121); ALT ALANINE AMINOTRANSFERASE 16 IU/L (10-60); AST ASPARTATE AMINOTRANSFERASE 21 IU/L (10-42); BILIRUBIN,TOTAL 0.9 mg/dL (0.2-1.0); BUN - BLOOD UREA NITROGEN 26 mg/dL (6-20); CARBON DIOXIDE - CO2 25 mmol/L (21-32); CHLORIDE 97 mmol/L (101-111); CREATININE 2.2 mg/dL (0.4-1.0); GFR - MDRD 23 (>89); GLUCOSE 159 mg/dL (70-100); LIPASE 15 U/L (22-51); SALICYLATE < 6.0 mg/dL; SODIUM 133 mmol/L (135-145); TOTAL PROTEIN 5.8 g/dL (6.7-8.2)
[2018-03-09] MEDS ORDERED: ACETAMINOPHEN 325 MG TABLET PO STA (22:54)
[2018-03-09 22:55] LABS: BAND NEUTROPHILS % (MANUAL) 15 %; LYMPHOCYTES # (MANUAL) 1.5 10^3/uL (1.5-3.5); LYMPHOCYTES % (MANUAL) 5 %; METAMYELOCYTES % (MANUAL) 4 %; MONOCYTES # (MANUAL) 0.9 10^3/uL (0.0-1.0); NEUTROPHILS # (MANUAL) 25.7 10^3/uL (1.5-6.6); NEUTROPHILS % (MANUAL) 73 %
[2018-03-09 23:01] LABS: DIFFERENTIAL COMMENT MANUAL DIFFERENTIAL; PLATELET ESTIMATE, MANUAL NORMAL (130-450,000) (NORMAL); PLATELET MORPHOLOGY NORMAL APPEARANCE (NORMAL); RBC MORPHOLOGY (MULTIPLE) NORMAL APPEARANCE (NORMAL)
--- NOTE | 2018-03-09 23:07 | XRAY Report ---
Reason: weak, ams Procedure Date: 03/09/2018 Accession Number: [id number] / [id number] Procedure: XR - Chest 1 View X-Ray CPT Code: 43123 FULL RESULT: EXAM: CHEST RADIOGRAPHY EXAM DATE: 03/09/2018 10:13 PM. CLINICAL HISTORY: Weak, ams. COMPARISON: CHEST 2 VIEW PA/LAT 03/13/2017 12:49 PM. TECHNIQUE: 1 view. FINDINGS: Lungs/Pleura: Central pulmonary vascular congestion. No effusion or pneumothorax. Mediastinum: Cardiomegaly. Other: None. IMPRESSION: Cardiomegaly and pulmonary vascular congestion, suggestive of mild congestive failure. RADIA
--- NOTE | 2018-03-09 23:08 | XRAY Report ---
Reason: fall Procedure Date: 03/09/2018 Accession Number: [id number] / [id number] Procedure: XR - Pelvis 1 View CPT Code: FULL RESULT: EXAM: PELVIS RADIOGRAPHY EXAM DATE: 03/09/2018 10:13 PM. CLINICAL HISTORY: Fall. COMPARISON: None. TECHNIQUE: 1 view. FINDINGS: Bones: Normal. No fracture or bone lesion. Joints: Mild bilateral hip osteoarthritis. Soft Tissues: Normal. No soft tissue swelling. IMPRESSION: Mild osteoarthritis. No evidence of acute fracture. RADIA
[2018-03-09] MEDS ORDERED: SODIUM CHLORIDE 0.9% 1,000 ML IV ONE (23:09)
--- NOTE | 2018-03-09 23:17 | CT Report ---
Reason: headache, dizzy, ams Procedure Date: 03/09/2018 Accession Number: [id number] / [id number] Procedure: CT - Head W/O CPT Code: FULL RESULT: EXAM: CT HEAD EXAM DATE: 03/09/2018 10:45 PM. CLINICAL HISTORY: Headache, dizziness, altered mental status. COMPARISON: None. TECHNIQUE: Multiaxial CT images were obtained from the foramen magnum to the vertex. Reformats: Sagittal and coronal. IV contrast: None. In accordance with CT protocol optimization, one or more of the following dose reduction techniques were utilized for this exam: automated exposure control, adjustment of mA and/or KV based on patient size, or use of iterative reconstructive technique. FINDINGS: Parenchyma: No intraparenchymal hemorrhage. No evidence of mass, midline shift, or CT findings of infarction. [place]-white differentiation is distinct. Extraaxial Spaces: Normal for age. No subdural or epidural collections identified. Ventricles: Normal in size and position. Sinuses and Orbits: Imaged paranasal sinuses, orbits, and mastoids show no significant abnormality. Bones: No evidence of fracture or calvarial defect. IMPRESSION: Normal head CT. RADIA
[2018-03-10] MEDS ORDERED: PIPERACILLIN/TAZOBACTAM 4.5 GM in SODIUM CHLORIDE 0.9% MINIBAG 100 ML IV STA (00:35)
[2018-03-10] MEDS ORDERED: SODIUM CHLORIDE 0.9% 1,000 ML IV ONE ×2 (00:47→06:49)
[2018-03-10 01:11] LABS: BILIRUBIN,URINE NEGATIVE (NEGATIVE); GLUCOSE, URINE (UA) NEGATIVE (NEGATIVE); KETONES,URINE (UA) NEGATIVE (NEGATIVE); LEUKOCYTE ESTERASE, URINE LARGE (NEGATIVE); MUDS CUTOFF CONCENTRATIONS CUTOFF CONC BELOW:; NITRITE,URINE NEGATIVE (NEGATIVE); OCCULT BLOOD,URINE MODERATE (NEGATIVE); PROTEIN,URINE 100 mg/dL (NEGATIVE); UROBILINOGEN,URINE 0.2 (NORMAL) E.U./dL (NORMAL)
[2018-03-10] MEDS ORDERED: IPRATROPIUM 0.2 MG/ML NEB INH PRN (01:11)
[2018-03-10] MEDS ORDERED: ACETAMINOPHEN 325 MG TABLET PO PRN (01:11)
[2018-03-10 01:13] LABS: CLARITY,URINE CLOUDY (CLEAR)
[2018-03-10 01:18] LABS: BACTERIA,URINE Many /HPF (None Seen); SQUAMOUS EPITHELIAL CELL,UR FEW Squamous (<= Few)
[2018-03-10 01:21] LABS: AMPHETAMINE SCREEN,URINE NEGATIVE (NEGATIVE); BENZODIAZEPINES SCREEN, URINE NEGATIVE (NEGATIVE); COCAINE SCREEN URINE NEGATIVE (NEGATIVE); METHADONE SCREEN, URINE NEGATIVE (NEGATIVE); METHAMPHETAMINES SCREEN, URINE NEGATIVE (NEGATIVE); OPIATE SCREEN, URINE POSITIVE (NEGATIVE); OXYCODONE SCREEN, URINE NEGATIVE (NEGATIVE); PROPOXYPHENE SCREEN, URINE NEGATIVE (NEGATIVE); TRICYCLIC ANTIDEPRESSANT,URINE NEGATIVE (NEGATIVE)
[2018-03-10] MEDS ORDERED: LACTATED RINGERS 1,000 ML IV SCH (02:00)
--- NOTE | 2018-03-10 03:28 | HISTORY & PHYSICAL EXAMINATION ---
DATE OF SERVICE: 03/10/2018 Physician: Zaida Rubio MD CHIEF COMPLAINT: Dizziness. SOURCE OF HISTORY: Most of the history was obtained from ER sign-out and reviewing medical records. The patient, on admission, was somnolent. She kept falling back to sleep when I interviewed her and she was a poor historian. She just confirmed basic facts. HISTORY OF PRESENT ILLNESS: Patient is a 57-year-old, obese, white female with past medical history of depression, hypothyroidism, and with history of migraine headaches and pneumonia, who presented to the ER overnight on March 09 to March 10, with the main complaint of dizziness, which had been going on for 2 days. Reportedly, she was dizzy and weak to the point that she had difficulty standing. She slid down to the floor and had difficulty getting up. When I interviewed her, she was somnolent and fell back to sleep several times during the interview. However, on targeted questioning, she reported that she had fever and felt short of breath prior to becoming dizzy. She also reported having increased frequency, needing to go to the bathroom many times to urinate during the past few days; however, on the day of admission, she had no urine output. She also mentioned that her urine might have smelled different. Notably, at the ER, the patient's daughter initially reported that the patient might have been taking more trazodone and tizanidine than she was prescribed. When I asked the patient, she denied. She denied using any illicit substances. She mentioned that she has chronic back pain, but other than tizanidine she does not take prescription medication. She denied taking opiates; however, she did report taking Advil sometimes, 4 or 5 times a day, 2 pills every time. Upon presentation to the ER, the patient was hypotensive. She was also hypothermic with temperature of 36.1, blood pressure was in the 80s to 90s systolic. Heart rate, however, was not elevated, it remained in the 70s. The patient appeared sedated. Respiratory rate was between 18 and 20. Oxygen saturation was 96% on room air. Laboratory showed numerous abnormalities including white blood cell count of 29 with 15% bandemia. Hemoglobin was 11.1. Patient reported no history of bleeding problems. Chemistry panel was abnormal with a sodium of 133, BUN 26, creatinine 2.2. Notably, the patient had normal creatinine in the past. Lactic acid was 2.9. Liver function tests were unremarkable. Troponin was negative. BNP was 148, slightly above normal. Salicylate, Tylenol and alcohol level were unremarkable. Lipase was low. CT scan of the brain showed no abnormality. A pelvic x-ray was checked, which did not show acute fracture or abnormality, and I suppose this was done because the patient slid down to the floor. Chest x-ray showed fine bibasilar opacities, which were read as vascular congestion. Cardiomegaly was also described. Notably, this patient has morbidly obese body habitus. On exam it was notable that turgor of the skin was decreased. Oral mucosa was dry. The patient had no peripheral edema. Exam of the lungs showed no crackles, No wheezes and there was no increased work of breathing. The ER physician, Dr. Brar tried to place a central line for hypotension; however, her multiple attempts were unsuccessful. Therefore, she called Anesthesia to place a central line. The patient received 1 liter IV fluid in the ER and she had no urine output. PAST MEDICAL HISTORY: Migraine headaches, hypothyroidism, depression, COPD, pneumonia, morbid obesity. OUTPATIENT MEDICATIONS Included: 1. Zofran. 2. Lexapro. 3. Proventil. 4. Premarin. 5. Levothyroxine. 6. Gabapentin. SOCIAL HISTORY: The patient has history of smoking. Currently, she does not smoke. FAMILY HISTORY: The patient could not provide. REVIEW OF SYSTEMS: Please see pertinent positives listed above at history of present illness. In addition, the patient denied all complaints including chest pain, abdominal pain, cough, sputum production, bleeding complication, did not report sick contact, reported not receiving the flu vaccination. 12 point review was negative other than the symptoms listed at HPI. PHYSICAL EXAMINATION VITAL SIGNS: Please see listed above at history of present illness. GENERAL: The patient is a morbidly obese female who was somnolent and lethargic, but arousable. She could not hold a conversation, answered in short sentences and fell back to sleep repeatedly. CARDIOVASCULAR: S1, S2. Regular. No pathologic murmur, distant heart sounds. RESPIRATORY: No increased work of breathing. No wheezes, no crackles. LYMPHATIC: No lymphedema. SKIN: Decreased turgor. No jaundice. MUSCULOSKELETAL: No joint swelling. No muscle tenderness. HEENT: Oral mucosa dry. ABDOMEN: Obese, benign. Bowel tones present. No guarding. No tenderness. NEUROLOGIC: With global encephalopathy, somnolence. No focal lateralizing sign. PSYCHIATRIC: Somnolent. ASSESSMENT/ACTIVE ISSUES/DIAGNOSES 1. Hypotension and hypothermia without tachycardia. This suggests more of medication misuse than actual sepsis; however, considering increased white blood cell count and bandemia, sepsis cannot be ruled out. 2. Probable/possible sepsis could be secondary to pneumonia, aspiration, plus/minus urinary tract infection. Urine culture is not yet obtained. Chest x-ray showed subtle bibasilar infiltrates and was read as possible pulmonary vascular congestion. However, with low BNP and with the patient's hypovolemic volume status, I think congestive heart failure is unlikely. She does have a morbidly obese body habitus, which makes evaluation somewhat difficult and parenchymal crowding secondary to hypoventilation and obesity could also contribute to the imaging appearance. 3. Lactic acidosis secondary to sepsis versus tissue hypoperfusion in the setting of dehydration and peripheral vasoconstriction. 4. Acute renal failure. Could be multifactorial secondary to low oral intake, sepsis, could also have interstitial nephritis secondary to NSAID use. Notably, the patient was using Advil for back pain. 5. Lung infiltrates, as mentioned, could be secondary to parenchymal crowding. Aspiration with altered mental status is also in the differential diagnosis, but the patient could have early pneumonia. Congestive heart failure is possible as well. So far, BNP is not much elevated, troponin is negative and volume status appears hypovolemic. 6. Anemia, without bleeding complication. 7. Encephalopathy, multifactorial in the setting of psychoactive medication use, hypotension, possible sepsis, and metabolic abnormalities/renal failure. PLAN AND ORDERS 1. The patient is getting admitted to the ICU. I will continue IV resuscitation, considering the patient's hypovolemic volume status. She has stable respiratory status and at this point I do not worry about pulmonary edema and CHF. 2. To rule out CHF, I will add an echocardiogram. 3. Empirically continue Zosyn, pending urine culture, urinalysis. Chest x-ray could also be repeated when the patient gets rehydrated and an infiltrate at that point might be more apparent. In the meantime, we will also treat for presumed pneumonia, Zosyn will cover, we will use bronchodilators, incentive spirometry, send flu swab and sputum culture. 4. Regarding renal failure, we will continue IV hydration, place a Stauffer catheter, send urinalysis and order renal/retroperitoneal ultrasound to rule out obstruction or other type of nephropathy. 5. We will hold all psychoactive medications and send urine toxicology. 6. Overnight, the patient will have a clear liquid diet. We will watch for aspiration and request nursing swallow screen and, if needed, speech therapy evaluation for swallow evaluation. 7. Deep venous thrombosis prophylaxis with decreased dose of subcutaneous heparin. 8. We will add TSH and CK to the workup. 9. Code status is FULL CODE per default. The patient was quite somnolent and I do not think she could meaningfully discuss goals of care. In any case, she is young and her previous code status was FULL CODE. Therefore, we will continue with the same. Critical care time spent in the care of this patient was 65 minutes. ATTESTATION: I certify that the reasonable expectation for this patient is to remain hospitalized for at least 48 hours; however, to get discharged or transferred to another facility within 96 hours. TD: 03/10/2018 02:22 IRENE
--- NOTE | 2018-03-10 03:51 | ANESTHESIA PROCEDURE NOTE ---
Anesth Central Line Template - Central Line Central Line Preparation: Consent Obtained, Time out completed, Sterile prep and drape Central line location: Right IJ Central line type: Triple lumen Central line aftercare: Chlorhexidine disc placed, Placement confirmed, Pt tolerated well (difficult placement secondary to morbid obesity, ultrasound guidance but no image available, seldinger technique, wire seen in IJ prior to dilating, line thread easy to 18cm. full sterile technique, biopatch placed and sutured, tegaderm over. I verified line as tip cavoatrial with CXR.)
--- NOTE | 2018-03-10 04:32 | XRAY Report ---
Reason: Central line placement Procedure Date: 03/10/2018 Accession Number: [id number] / [id number] Procedure: XR - Chest for Line Placement CPT Code: FULL RESULT: EXAM: CHEST RADIOGRAPHY EXAM DATE: 03/10/2018 03:47 AM. CLINICAL HISTORY: Central line placement. COMPARISON: CHEST 1 VIEW 03/09/2018 10:13 PM. TECHNIQUE: 1 view. FINDINGS: Lungs/Pleura: The level of inspiration is low. There are no acute infiltrates. Mediastinum: The heart is borderline enlarged and stable. A right-sided jugular vein catheter has been placed the tip is in the superior vena cava. Other: None. IMPRESSION: 1. Cardiomegaly. 2. Right-sided central line with the tip in the superior vena cava. [facility]
[2018-03-10] MEDS: SODIUM CHLORIDE FLUSH 0.9% 10 ML SYRINGE IVP PRN ×3 (05:22→09:21)
--- NOTE | 2018-03-10 05:35 | Ultrasound Report ---
Reason: renal failure Procedure Date: 03/10/2018 Accession Number: [id number] / [id number] Procedure: US - Retroperitoneal CPT Code: FULL RESULT: EXAM: RENAL ULTRASOUND EXAM DATE: 03/10/2018 05:04 AM. CLINICAL HISTORY: Renal failure. COMPARISON: None. TECHNIQUE: Real-time scanning was performed with static images obtained. FINDINGS: Right Kidney: 11.7 x 5.8 x 5.8 cm. Mild right hydronephrosis. No definite shadowing calculus. Left Kidney: 10.8 x 5.6 x 5.5 cm. Normal echotexture with no stones, contour-deforming masses, or hydronephrosis. Bladder: Not visualized. Other: None. IMPRESSION: Mild right hydronephrosis. [facility]
[2018-03-10 05:53] LABS: BASOPHILS % (AUTO) 0.3 %; EOSINOPHILS % (AUTO) 0.1 %; HGB - HEMOGLOBIN 10.5 g/dL (12.0-16.0); LYMPHOCYTES % (AUTO) 4.4 %; MEAN CORPUSCULAR HEMOGLOBIN 27.7 pg (27.0-31.0); MEAN CORPUSCULAR HGB CONC 31.8 g/dL (32.0-36.0); MEAN PLATELET VOLUME 7.5 fL (7.9-10.8); MONOCYTES % (AUTO) 2.7 %; NEUTROPHILS % (AUTO) 92.5 %; PLT - PLATELET COUNT 186 10^3/uL (130-450); RED CELL DISTRIBUTION WIDTH 14.6 % (12.0-15.0); WHITE BLOOD COUNT 24.9 x10^3/uL (4.8-10.8)
[2018-03-10 06:07] LABS: ABNORMAL LYMPHS % (MANUAL) 0 %
[2018-03-10 06:39] LABS: ALBUMIN 2.1 g/dL (3.2-5.5); CALCIUM 7.8 mg/dL (8.5-10.3); CREATININE 2.6 mg/dL (0.4-1.0); PHOSPHORUS 4.1 mg/dL (2.5-4.6)
[2018-03-10 07:17] LABS: BAND NEUTROPHILS % (MANUAL) 15 %; DIFFERENTIAL COMMENT MANUAL DIFFERENTIAL; LYMPHOCYTES % (MANUAL) 8 %; MONOCYTES # (MANUAL) 0.5 10^3/uL (0.0-1.0); NEUTROPHILS # (MANUAL) 22.4 10^3/uL (1.5-6.6); NEUTROPHILS % (MANUAL) 75 %; PLATELET ESTIMATE, MANUAL NORMAL (130-450,000) (NORMAL); RBC MORPHOLOGY (MULTIPLE) NORMAL APPEARANCE (NORMAL)
[2018-03-10] MEDS: LACTATED RINGERS 1,000 ML IV SCH ×4 (07:58→21:33)
[2018-03-10] MEDS: IPRATROPIUM/ALBUTEROL 3 ML NEB INH SCH ×2 (08:04→20:49)
[2018-03-10] MEDS: HEPARIN 5,000 UNIT/ML VIAL SUBQ SCH ×2 (08:52→20:36)
[2018-03-10] MEDS: FAMOTIDINE 20 MG/50 ML 50 ML IV SCH (08:52)
[2018-03-10] MEDS: guaiFENesin 600 MG TABLET PO SCH ×2 (08:52→20:35)
[2018-03-10] MEDS: PIPERACILLIN/TAZOBACTAM 2.25 GM in SODIUM CHLORIDE 0.9% MINIBAG 100 ML IV SCH ×3 (08:52→19:35)
[2018-03-10] MEDS: SODIUM CHLORIDE FLUSH 0.9% 10 ML SYRINGE IVP SCH ×3 (08:53→21:16)
[2018-03-10] MEDS: ONDANSETRON 4 MG/2 ML VIAL IVP PRN (09:21)
[2018-03-10] MEDS: ACETAMINOPHEN/CODEINE 300 MG/30 MG TABLET PO PRN (11:30)
[2018-03-10] MEDS ORDERED: HYDROmorphone 2 MG/ML VIAL IVP PRN (13:58)
--- NOTE | 2018-03-10 14:13 | PROVIDER PROGRESS NOTE ---
Hospitalist Cross-cover Note - Cross-Cover Note Cross-Cover Note: BP still 80-90 and urine output low and appears concentrated. Creat increased since the ER creat blood test Pt more awake as BP improved on Levophed (120/65) and she complains of a headache. She also remembers being confused. She denies taking extra sedatives or pain meds. Lab reported that her blood culture is growing GNR. Imp: Septic shock Gram Neg Bacteremia CONSTANTIN Migraine headache Morbid Obesity Chronic pain Depression/ Biploar disorder Plan: Add Garamycin to Pip/Tazo for Gram neg coverage from a suspected urogenital source Advance diet Continue aggressive iv hydration and Levophed for BP support Dilaudid prn for pain control (she says she can tolerate Dilaudid despite a Morphine allergy listed) Continue ther admission orders (30 min of critical care time spent)
[2018-03-10] MEDS ORDERED: SODIUM CHLORIDE 0.9% IV SCH (15:00)
[2018-03-10] MEDS ORDERED: GENTAMICIN IV SCH (15:00)
[2018-03-10] MEDS: ACETAMINOPHEN 325 MG TABLET PO PRN (19:44)
[2018-03-10] MEDS: HYDROmorphone 2 MG/ML VIAL IVP PRN (21:16)
[2018-03-11] MEDS: PIPERACILLIN/TAZOBACTAM 2.25 GM in SODIUM CHLORIDE 0.9% MINIBAG 100 ML IV SCH ×2 (02:31→08:14)
[2018-03-11] MEDS: LACTATED RINGERS 1,000 ML IV SCH ×2 (02:45→08:00)
[2018-03-11] MEDS: SODIUM CHLORIDE FLUSH 0.9% 10 ML SYRINGE IVP PRN ×4 (02:46→06:46)
[2018-03-11 03:02] LABS: BASOPHILS % (AUTO) 0.5 %; EOSINOPHILS % (AUTO) 0.5 %; HGB - HEMOGLOBIN 10.1 g/dL (12.0-16.0); LYMPHOCYTES % (AUTO) 4.3 %; MEAN CORPUSCULAR HEMOGLOBIN 28.2 pg (27.0-31.0); MEAN CORPUSCULAR HGB CONC 32.6 g/dL (32.0-36.0); MEAN CORPUSCULAR VOLUME 86.4 fL (81.0-99.0); MEAN PLATELET VOLUME 7.4 fL (7.9-10.8); MONOCYTES % (AUTO) 4.8 %; NEUTROPHILS % (AUTO) 89.9 %; PLT - PLATELET COUNT 182 10^3/uL (130-450); RED BLOOD COUNT 3.59 10^6/uL (4.20-5.40); RED CELL DISTRIBUTION WIDTH 14.8 % (12.0-15.0); WHITE BLOOD COUNT 20.1 x10^3/uL (4.8-10.8)
[2018-03-11 03:05] LABS: ABNORMAL LYMPHS % (MANUAL) 0 %
[2018-03-11 03:14] LABS: ALBUMIN 2.4 g/dL (3.2-5.5); ALBUMIN/GLOBULIN RATIO 0.7 (1.0-2.2); BILIRUBIN,TOTAL 0.6 mg/dL (0.2-1.0); CALCIUM 7.2 mg/dL (8.5-10.3); CREATININE 3.2 mg/dL (0.4-1.0)
[2018-03-11 03:27] LABS: BAND NEUTROPHILS % (MANUAL) 16 %; EOSINOPHILS # (MANUAL) 0.2 10^3/uL (0-0.7); LYMPHOCYTES % (MANUAL) 10 %; MONOCYTES # (MANUAL) 1.2 10^3/uL (0.0-1.0); NEUTROPHILS # (MANUAL) 16.7 10^3/uL (1.5-6.6); NEUTROPHILS % (MANUAL) 67 %; RBC MORPHOLOGY (MULTIPLE) NORMAL APPEARANCE (NORMAL)
[2018-03-11 03:28] LABS: DIFFERENTIAL COMMENT MANUAL DIFFERENTIAL; PLATELET ESTIMATE, MANUAL NORMAL (130-450,000) (NORMAL)
[2018-03-11 03:55] LABS: GENTAMICIN,RANDOM 18.8 ug/mL
[2018-03-11 04:25] LABS: VBG PH 7.301 (7.31-7.41)
[2018-03-11] MEDS ORDERED: CALCIUM GLUCONATE 2,000 MG in SODIUM CHLORIDE 0.9% 100ML 100 ML IV ONE (05:09)
[2018-03-11] MEDS: ONDANSETRON 4 MG/2 ML VIAL IVP PRN ×2 (06:46→12:49)
[2018-03-11] MEDS: IPRATROPIUM/ALBUTEROL 3 ML NEB INH SCH ×2 (08:07→20:49)
[2018-03-11 08:14] LABS: VBG PH 7.352 (7.31-7.41)
[2018-03-11] MEDS: HYDROmorphone 2 MG/ML VIAL IVP PRN ×3 (08:37→17:05)
[2018-03-11] MEDS: FAMOTIDINE 20 MG/50 ML 50 ML IV SCH (09:33)
[2018-03-11] MEDS: SODIUM CHLORIDE FLUSH 0.9% 10 ML SYRINGE IVP SCH ×2 (09:35→17:04)
[2018-03-11] MEDS: HEPARIN 5,000 UNIT/ML VIAL SUBQ SCH ×2 (09:35→21:17)
[2018-03-11] MEDS: guaiFENesin 600 MG TABLET PO SCH ×2 (09:38→21:14)
[2018-03-11] MEDS: SODIUM CHLORIDE 0.9% 1,000 ML IV SCH ×2 (09:43→17:05)
[2018-03-11] MEDS ORDERED: MOXIFLOXACIN 400MG/250ML IV 400 MG/250 ML BAG IV SCH (10:00)
[2018-03-11] MEDS: MEROPENEM 500 MG in SODIUM CHLORIDE 0.9% MINIBAG 100 ML IV SCH ×2 (11:18→21:54)
--- NOTE | 2018-03-11 12:02 | PROVIDER PROGRESS NOTE ---
Assessment/Plan - Problem List (1) Septic shock Assessment/Plan: Shock has resolved. Levophed is off. Continue iv fluids and treating the infection. (2) Sepsis due to Gram negative bacteria Assessment/Plan: The WBC is not dropping much, and she spiked a fever at 0800 today. Yesterday, prelim labs showed that blood cultures are growing a Gram Neg Malik. The identification of the organism is still pending. Will reculture blood and continue daily cultures until she is afebrile. Will change her empiric iv antibiotics due to worsening renal function: stop Aminiglycoside and Pip/Tazo. Start Meropenam at renal doses. (This was discussed with our in-house Pharmacist). (3) CONSTANTIN (acute kidney injury) Assessment/Plan: Will stop nephrotoxic agents: Aminoglycosidde, Pip/Tazo, citrate in Lact Ringers. Will change antibiotic to Meropenam, start iv saline, monitor K and BMP, renal function. HTN has now developed. Will give a dose of B-summer. (4) Bipolar disorder Assessment/Plan: She has been seen talking to herself and picking at things and anxious, by her [employer]. Will resume her Buspar, hold tinazedine. (5) Chronic pain Assessment/Plan: Will resume Gabapentin - Current Meds Current Meds: Current Medications Generic Name Dose Route Start Last Admin Trade Name Freq PRN Reason Stop Dose Admin Acetaminophen 650 mg 03/10/18 07:55 03/10/18 19:44 Tylenol PO 650 mg Q4HR PRN Administration Pain or Fever > 38C (100.4F) Acetaminophen/Codeine Phosphate 1 tab 03/10/18 10:34 03/10/18 11:30 Tylenol #3 PO 1 tab Q4HR PRN Administration PAIN Albuterol/Ipratropium 3 ml 03/10/18 07:00 03/11/18 08:07 Duoneb INH 3 ml RTBID SILVERIO Administration Guaifenesin 600 mg 03/10/18 09:00 03/11/18 09:38 Mucinex PO 600 mg BID SILVERIO Administration Heparin Sodium (Porcine) 5,000 unit 03/10/18 09:00 03/11/18 09:35 SUBQ 5,000 unit BID SILVERIO Administration Hydromorphone HCl 0.5 mg 03/10/18 16:50 03/11/18 08:37 Dilaudid (Vial) IVP 0.5 mg Q2H PRN Administration Severe Pain Famotidine 50 mls @ 100 mls/hr 03/10/18 09:00 03/11/18 10:00 Pepcid 20 Mg/50 Ml IV Infused DAILY SILVERIO Infusion Sodium Chloride 1,000 mls @ 125 mls/hr 03/11/18 10:00 03/11/18 09:43 Normal Saline 0.9% IV 125 mls/hr .Q8H SILVERIO Administration Meropenem 500 mg/ Sodium 100 mls @ 200 mls/hr 03/11/18 10:30 03/11/18 11:18 Chloride IV 200 mls/hr Q12H SILVERIO Administration Ondansetron HCl 4 mg 03/10/18 01:11 03/11/18 06:46 Zofran Inj IVP 4 mg Q6HR PRN Administration Nausea / Vomiting Sodium Chloride 10 ml 03/10/18 09:00 03/11/18 09:35 Normal Saline Flush 0.9% IVP 10 ml 0100,0900,1700 SILVERIO Administration Sodium Chloride 10 ml 03/10/18 01:06 03/11/18 06:46 Normal Saline Flush 0.9% IVP 10 ml PRN PRN Administration NEEDED PER PROVIDER ORDERS Sodium Chloride 20 ml 03/11/18 02:23 03/11/18 03:49 Normal Saline Flush 0.9% IVP 20 ml PRN PRN Administration After Blood Draw - Lab Result Fish Bone Diagrams: 03/11/18 02:50 03/11/18 14:38 - Additional Planning My Orders: My Active Orders 03/10/18 16:50 HYDROmorphone (VIAL) [Dilaudid (Vial)] 0.5 mg IVP Q2H PRN 03/10/18 Lunch DIET [Soft (Low Fiber) Diet] [DIET] 03/11/18 10:00 Sodium Chloride 0.9% [Normal Saline 0.9%] 1,000 ml IV 125 mls/hr 03/11/18 10:30 Meropenem [Merrem] 500 mg Sodium Chloride 0.9% Minibag [Normal Saline 0.9% Minibag] 100 ml IV Q12H 03/11/18 14:00 BMP - BASIC METABOLIC PANEL [CHEM] Timed 03/12/18 05:00 CBC - COMP BLD CT W/AUTO DIFF [HEME] DAILYLAB CMP [COMPREHENSIVE METABOLIC PANEL] [CHEM] DAILYLAB 03/13/18 05:00 CBC - COMP BLD CT W/AUTO DIFF [HEME] DAILYLAB CMP [COMPREHENSIVE METABOLIC PANEL] [CHEM] DAILYLAB 03/14/18 05:00 CBC - COMP BLD CT W/AUTO DIFF [HEME] DAILYLAB CMP [COMPREHENSIVE METABOLIC PANEL] [CHEM] DAILYLAB Subjective - Subjective Patient Reports: Other (Having sudden abdominal stabbing pains and diffuse migrating pain) Nursing Reports: Other (Having a BM, passed gas) Objective Vital Signs: Vital Signs - 24 hr 03/10/18 03/10/18 03/10/18 12:06 13:00 13:20 Temperature Heart Rate Heart Rate [ 92 Monitoring electrodes] Respiratory 17 Rate Blood Pressure 117/70 96/69 106/95 H [Left Radial artery] Blood Pressure [Right Brachial artery] O2 Saturation 100 03/10/18 03/10/18 03/10/18 14:00 15:00 16:00 Temperature 36.3 C L Heart Rate Heart Rate [ 86 97 100 Monitoring electrodes] Respiratory 20 20 20 Rate Blood Pressure 137/83 H 133/79 H 116/78 [Left Radial artery] Blood Pressure [Right Brachial artery] O2 Saturation 98 96 95 03/10/18 03/10/18 03/10/18 17:00 18:00 19:01 Temperature 36.5 C 36.1 C L Heart Rate Heart Rate [ 94 90 90 Monitoring electrodes] Respiratory 21 17 18 Rate Blood Pressure 137/92 H 93/78 91/76 [Left Radial artery] Blood Pressure [Right Brachial artery] O2 Saturation 97 97 97 03/10/18 03/10/18 03/10/18 19:45 20:50 21:00 Temperature 38.3 C H 37.8 C H Heart Rate 89 Heart Rate [ 93 97 Monitoring electrodes] Respiratory 19 23 23 Rate Blood Pressure 106/76 83/74 L [Left Radial artery] Blood Pressure [Right Brachial artery] O2 Saturation 97 93 03/10/18 03/10/18 03/11/18 22:00 23:00 00:00 Temperature 37.1 C Heart Rate Heart Rate [ 95 96 88 Monitoring electrodes] Respiratory 16 14 18 Rate Blood Pressure 82/57 L 85/74 L 101/66 [Left Radial artery] Blood Pressure [Right Brachial artery] O2 Saturation 96 94 97 03/11/18 03/11/18 03/11/18 01:00 02:00 03:00 Temperature Heart Rate Heart Rate [ 92 100 99 Monitoring electrodes] Respiratory 17 18 18 Rate Blood Pressure 103/87 H 111/77 117/75 [Left Radial artery] Blood Pressure [Right Brachial artery] O2 Saturation 94 97 99 03/11/18 03/11/18 03/11/18 04:00 05:00 06:01 Temperature 37.3 C Heart Rate Heart Rate [ 99 108 H 111 H Monitoring electrodes] Respiratory 19 19 21 Rate Blood Pressure 147/63 H 150/85 H 155/96 H [Left Radial artery] Blood Pressure [Right Brachial artery] O2 Saturation 92 100 93 03/11/18 03/11/18 03/11/18 07:05 08:00 09:00 Temperature 38.1 C H Heart Rate Heart Rate [ 108 H 114 H 103 H Monitoring electrodes] Respiratory 23 20 21 Rate Blood Pressure 173/121 H [Left Radial artery] Blood Pressure 165/101 H 122/87 H [Right Brachial artery] O2 Saturation 94 97 96 03/11/18 03/11/18 10:00 11:00 Temperature Heart Rate Heart Rate [ 100 99 Monitoring electrodes] Respiratory 20 24 Rate Blood Pressure [Left Radial artery] Blood Pressure 166/120 H 175/103 H [Right Brachial artery] O2 Saturation 96 Oxygen O2 Source Nasal cannula I&O (Last 24 Hrs): Intake and Output Totals x24h 03/09/18 03/10/18 03/11/18 23:59 23:59 23:59 Intake Total 9933.730 3778.50 Output Total 955 1103 Balance 8978.730 2675.50 General: Alert HEENT: Mucous membr. moist/pink Neck: Supple, Other (Obese neck) Cardiovascular: Regular rate, No murmurs Respiratory: No respiratory distress Abdomen: Soft, Other (Obese) Extremities: No edema - Results Results: Laboratory Results WBC 20.1 x10^3/uL (4.8-10.8) H 03/11/18 02:50 RBC 3.59 10^6/uL (4.20-5.40) L 03/11/18 02:50 Hgb 10.1 g/dL (12.0-16.0) L 03/11/18 02:50 Hct 31.0 % (37.0-47.0) L 03/11/18 02:50 MCV 86.4 fL (81.0-99.0) 03/11/18 02:50 MCH 28.2 pg (27.0-31.0) 03/11/18 02:50 MCHC 32.6 g/dL (32.0-36.0) 03/11/18 02:50 RDW 14.8 % (12.0-15.0) 03/11/18 02:50 Plt Count 182 10^3/uL (130-450) 03/11/18 02:50 MPV 7.4 fL (7.9-10.8) L 03/11/18 02:50 Neut # (Auto) Not Reportable 03/11/18 02:50 Lymph # (Auto) Not Reportable 03/11/18 02:50 Love # (Auto) Not Reportable 03/11/18 02:50 Eos # (Auto) Not Reportable 03/11/18 02:50 Baso # (Auto) Not Reportable 03/11/18 02:50 Absolute Nucleated RBC Not Reportable 03/11/18 02:50 Total Counted 100 03/11/18 02:50 Band Neuts % (Manual) 16 % (0-10) H 03/11/18 02:50 Abnorm Lymph % (Manual) 0 % 03/11/18 02:50 Metamyelocytes % 4 % (-0) H 03/09/18 22:15 Nucleated RBC % Not Reportable 03/11/18 02:50 Neutrophils # (Manual) 16.7 10^3/uL (1.5-6.6) H 03/11/18 02:50 Lymphocytes # (Manual) 2.0 10^3/uL (1.5-3.5) 03/11/18 02:50 Monocytes # (Manual) 1.2 10^3/uL (0.0-1.0) H 03/11/18 02:50 Eosinophils # (Manual) 0.2 10^3/uL (0-0.7) 03/11/18 02:50 Basophils # (Manual) 0.0 10^3/uL (0-0.1) 03/11/18 02:50 Differential Comment MANUAL DIFFERENTIAL 03/11/18 02:50 Manual Slide Review Indicated 03/09/18 22:15 Platelet Estimate NORMAL (130-450,000) (NORMAL) 03/11/18 02:50 Platelet Morphology NORMAL APPEARANCE (NORMAL) 03/09/18 22:15 RBC Morph Micro Appear NORMAL APPEARANCE (NORMAL) 03/11/18 02:50 VBG pH 7.352 (7.31-7.41) 03/11/18 08:09 Ionized Calcium 1.01 mmol/L (1.15-1.33) L 03/11/18 08:09 Sodium 134 mmol/L (135-145) L 03/11/18 02:50 Potassium 4.0 mmol/L (3.5-5.0) 03/11/18 02:50 Chloride 99 mmol/L (101-111) L 03/11/18 02:50 Carbon Dioxide 24 mmol/L (21-32) 03/11/18 02:50 Anion Gap 11.0 (6-13) 03/11/18 02:50 BUN 42 mg/dL (6-20) H 03/11/18 02:50 Creatinine 3.2 mg/dL (0.4-1.0) H 03/11/18 02:50 Estimated GFR (MDRD) 15 (>89) L 03/11/18 02:50 Glucose 135 mg/dL (70-100) H 03/11/18 02:50 Lactic Acid 1.0 mmol/L (0.5-2.2) 03/10/18 05:16 Calcium 7.2 mg/dL (8.5-10.3) L 03/11/18 02:50 Phosphorus 4.1 mg/dL (2.5-4.6) 03/10/18 05:45 Total Bilirubin 0.6 mg/dL (0.2-1.0) 03/11/18 02:50 AST 31 IU/L (10-42) 03/11/18 02:50 ALT 22 IU/L (10-60) 03/11/18 02:50 Alkaline Phosphatase 93 IU/L (42-121) 03/11/18 02:50 Total Creatine Kinase 54 IU/L (22-269) 03/09/18 22:15 Troponin I < 0.04 ng/mL (<0.49) 03/09/18 22:15 B-Natriuretic Peptide 148 pg/mL (5-100) H 03/09/18 22:15 Total Protein 6.0 g/dL (6.7-8.2) L 03/11/18 02:50 Albumin 2.4 g/dL (3.2-5.5) L 03/11/18 02:50 Globulin 3.6 g/dL (2.1-4.2) 03/11/18 02:50 Albumin/Globulin Ratio 0.7 (1.0-2.2) L 03/11/18 02:50 Lipase 15 U/L (22-51) L 03/09/18 22:15 TSH < 0.08 uIU/mL (0.34-5.60) L 03/09/18 22:15 Free T4 1.86 ng/dL (0.58-1.64) H 03/10/18 05:45 Urine Color YELLOW 03/10/18 01:05 Urine Clarity CLOUDY (CLEAR) 03/10/18 01:05 Urine pH 6.0 PH (5.0-7.5) 03/10/18 01:05 Ur Specific Williams 1.025 (1.002-1.030) 03/10/18 01:05 Urine Protein 100 mg/dL (NEGATIVE) H 03/10/18 01:05 Urine Glucose (UA) NEGATIVE mg/dL (NEGATIVE) 03/10/18 01:05 Urine Ketones NEGATIVE mg/dL (NEGATIVE) 03/10/18 01:05 Urine Occult Blood MODERATE (NEGATIVE) H 03/10/18 01:05 Urine Nitrite NEGATIVE (NEGATIVE) 03/10/18 01:05 Urine Bilirubin NEGATIVE (NEGATIVE) 03/10/18 01:05 Urine Urobilinogen 0.2 (NORMAL) E.U./dL (NORMAL) 03/10/18 01:05 Ur Leukocyte Esterase LARGE (NEGATIVE) H 03/10/18 01:05 Urine RBC 11-25 /HPF (0-5) H 03/10/18 01:05 Urine WBC >25 /HPF (0-5) H 03/10/18 01:05 Ur Squamous Epith Cells FEW Squamous (<= Few) 03/10/18 01:05 Urine Bacteria Many /HPF (None Seen) H 03/10/18 01:05 Ur Microscopic Review INDICATED 03/10/18 01:05 Urine Culture Comments INDICATED 03/10/18 01:05 Last Dose Date 03/10/18 03/11/18 02:50 Last Dose Time 1400 03/11/18 02:50 Random Gentamicin 18.8 ug/mL H* 03/11/18 02:50 Salicylates < 6.0 mg/dL 03/09/18 22:15 Urine Opiates Screen POSITIVE (NEGATIVE) H 03/10/18 01:05 Ur Oxycodone Screen NEGATIVE (NEGATIVE) 03/10/18 01:05 Urine Methadone Screen NEGATIVE (NEGATIVE) 03/10/18 01:05 Ur Propoxyphene Screen NEGATIVE (NEGATIVE) 03/10/18 01:05 Acetaminophen < 10 ug/mL (10-30) L 03/09/18 22:15 Ur Barbiturates Screen NEGATIVE (NEGATIVE) 03/10/18 01:05 Ur Tricyclics Screen NEGATIVE (NEGATIVE) 03/10/18 01:05 Ur Phencyclidine Scrn NEGATIVE (NEGATIVE) 03/10/18 01:05 Ur Amphetamine Screen NEGATIVE (NEGATIVE) 03/10/18 01:05 U Methamphetamines Scrn NEGATIVE (NEGATIVE) 03/10/18 01:05 U Benzodiazepines Scrn NEGATIVE (NEGATIVE) 03/10/18 01:05 Urine Cocaine Screen NEGATIVE (NEGATIVE) 03/10/18 01:05 U Cannabinoids Screen NEGATIVE (NEGATIVE) 03/10/18 01:05 Ethyl Alcohol < 5.0 mg/dL 03/09/18 22:15
[2018-03-11 14:53] LABS: CALCIUM 7.7 mg/dL (8.5-10.3); CREATININE 3.2 mg/dL (0.4-1.0)
[2018-03-11] MEDS: METOPROLOL TARTRATE 25 MG TABLET PO SCH (16:30)
[2018-03-11] MEDS ORDERED: SODIUM CHLORIDE 0.9% 1,000 ML IV SCH (19:12)
--- NOTE | 2018-03-11 20:10 | XRAY Report ---
Reason: SOB, poss CHF Procedure Date: 03/11/2018 Accession Number: [id number] / [id number] Procedure: XR - Chest 1 View X-Ray CPT Code: 23871 FULL RESULT: EXAM: CHEST RADIOGRAPHY EXAM DATE: 03/11/2018 07:34 PM. CLINICAL HISTORY: Shortness of breath. Possible CHF. COMPARISON: CHEST FOR LINE PLACEMENT 03/10/2018 3:29 AM CHEST 1 VIEW 03/09/2018 10:13 PM. TECHNIQUE: 1 view. FINDINGS: Lungs/Pleura: Central vascular engorgement and patchy bilateral perihilar opacities, likely representing pulmonary edema. No pleural effusion or pneumothorax. Mediastinum: Cardiomegaly, as before. Other: The right IJ central venous catheter has retracted and now likely terminates in the internal jugular vein. IMPRESSION: 1. Cardiomegaly with probable mild pulmonary edema, suggesting CHF. 2. Interval retraction of the right IJ central venous catheter. [facility] CALL REPORT: The patient's nurse Margaux Krishna was notified by telephone of the right IJ position at 8:08 PM on 03/11/2018.
[2018-03-11] MEDS: busPIRone 5 MG TABLET PO SCH (21:14)
[2018-03-11] MEDS: FAMOTIDINE 20 MG TABLET PO SCH (21:14)
[2018-03-11] MEDS: GABAPENTIN 300 MG CAPSULE PO SCH (21:15)
[2018-03-11] MEDS: ACETAMINOPHEN 325 MG TABLET PO PRN (22:52)
[2018-03-12] MEDS: SODIUM CHLORIDE FLUSH 0.9% 10 ML SYRINGE IVP SCH ×3 (00:34→18:13)
[2018-03-12] MEDS ORDERED: NITROGLYCERIN 2% PASTE TOP SCH (01:00)
[2018-03-12] MEDS: ISOSORBIDE MONONITRATE ER 30 MG TABLET PO SCH ×2 (01:18→08:29)
[2018-03-12] MEDS: HYDROmorphone 2 MG/ML VIAL IVP PRN ×4 (01:32→21:43)
[2018-03-12] MEDS: LABETALOL 20 MG/4 ML SYRINGE IVP PRN ×3 (02:20→22:56)
[2018-03-12 05:28] LABS: BASOPHILS # (AUTO) 0.1 10^3/uL (0.0-0.1); BASOPHILS % (AUTO) 0.5 %; EOSINOPHILS # (AUTO) 0.1 10^3/uL (0.0-0.7); EOSINOPHILS % (AUTO) 0.4 %; HGB - HEMOGLOBIN 10.1 g/dL (12.0-16.0); LYMPHOCYTES # (AUTO) 0.7 10^3/uL (1.5-3.5); LYMPHOCYTES % (AUTO) 4.3 %; MEAN CORPUSCULAR HEMOGLOBIN 27.9 pg (27.0-31.0); MEAN CORPUSCULAR HGB CONC 32.2 g/dL (32.0-36.0); MEAN CORPUSCULAR VOLUME 86.6 fL (81.0-99.0); MEAN PLATELET VOLUME 7.8 fL (7.9-10.8); MONOCYTES # (AUTO) 0.9 10^3/uL (0.0-1.0); MONOCYTES % (AUTO) 5.7 %; NEUTROPHILS # (AUTO) 14.5 10^3/uL (1.5-6.6); NEUTROPHILS % (AUTO) 89.1 %; PLT - PLATELET COUNT 164 10^3/uL (130-450); RED BLOOD COUNT 3.61 10^6/uL (4.20-5.40); RED CELL DISTRIBUTION WIDTH 14.8 % (12.0-15.0); WHITE BLOOD COUNT 16.2 x10^3/uL (4.8-10.8)
[2018-03-12 05:38] LABS: ALBUMIN 2.5 g/dL (3.2-5.5); ALBUMIN/GLOBULIN RATIO 0.7 (1.0-2.2); BILIRUBIN,TOTAL 0.7 mg/dL (0.2-1.0); CALCIUM 7.7 mg/dL (8.5-10.3); CREATININE 3.1 mg/dL (0.4-1.0); TOTAL PROTEIN 6.1 g/dL (6.7-8.2)
[2018-03-12] MEDS: ACETAMINOPHEN/CODEINE 300 MG/30 MG TABLET PO PRN (05:50)
[2018-03-12] MEDS: GABAPENTIN 300 MG CAPSULE PO SCH ×3 (05:51→21:38)
[2018-03-12 06:34] LABS: MAGNESIUM 1.9 mg/dL (1.7-2.8)
[2018-03-12] MEDS: IPRATROPIUM/ALBUTEROL 3 ML NEB INH SCH ×2 (07:54→20:56)
[2018-03-12] MEDS: METOPROLOL TARTRATE 25 MG TABLET PO SCH (08:28)
[2018-03-12] MEDS: guaiFENesin 600 MG TABLET PO SCH ×2 (08:28→20:58)
[2018-03-12] MEDS: ESCITALOPRAM 10 MG TABLET PO SCH (08:47)
[2018-03-12] MEDS: POLYETHYLENE GLYCOL 3350 17 GM PACKET PO SCH (08:47)
[2018-03-12] MEDS: HEPARIN 5,000 UNIT/ML VIAL SUBQ SCH ×2 (08:49→21:00)
[2018-03-12] MEDS: FAMOTIDINE 20 MG TABLET PO SCH ×2 (09:00→20:58)
[2018-03-12] MEDS: busPIRone 5 MG TABLET PO SCH ×2 (09:28→20:58)
[2018-03-12] MEDS: MEROPENEM 500 MG in SODIUM CHLORIDE 0.9% MINIBAG 100 ML IV SCH (12:30)
--- NOTE | 2018-03-12 13:23 | XRAY Report ---
Reason: CHF Procedure Date: 03/12/2018 Accession Number: [id number] / [id number] Procedure: XR - Chest 1 View X-Ray CPT Code: 74059 FULL RESULT: EXAM: CHEST RADIOGRAPHY EXAM DATE: 03/12/2018 01:14 PM. CLINICAL HISTORY: Congestive heart failure. COMPARISON: Chest 1 view 03/11/2018 7:18 PM. TECHNIQUE: 1 view. FINDINGS: The radiograph is limited by portable AP only technique with underpenetration. Lung volumes are low which can exacerbate the cardiomediastinal silhouette as well as lung markings. There is persistent opacification of the lower left hemithorax. Right paracardiac airspace opacity is also seen, not significantly different from the day prior. Visualized portions of the cardiomediastinal silhouette suggest persistent cardiomegaly, not significantly changed. No new pneumothorax or pleural effusion. IMPRESSION: Low lung volumes with persistent bibasilar airspace opacification. [facility]
[2018-03-12] MEDS ORDERED: cloNIDine 0.1 MG PATCH TOP SCH (13:27)
--- NOTE | 2018-03-12 17:29 | PROVIDER PROGRESS NOTE ---
Assessment/Plan - Problem List (1) Sepsis due to Escherichia coli Assessment/Plan: The source is the urine since E coli with the same sensitivities are growing in the urine culture. Yesterdays's blood culture (done with fever spike) is this far neg at 24 hours. Her WBC is decreasing daily. Will continue Merepenam since it is hepatically metabolized, not renal, and this bacteria is sensitive to Imipenam. Will ask for placement of a PICC line, since she will need 14 dauys of iv antibiotics due to bacteria in the blood stream. TTherefore, she will need nursing care at a SNF for this treatment plan, when she is clinically dtable for DCh, in several days; the Capsule Maker was informed. Monitor CBC daily. (2) CONSTANTIN (acute kidney injury) Assessment/Plan: The vreat has stabilized but not reversing down to normal yet. It is likely from ATN due to hypotension (when she was in shock), and nephrotoxins (which have been stopped). Continue gentle hydration, and try not to use diuretics if her pulmonary condition can tolerate that. Will recheck a CXR today for CHF status. Monitor BMP daily. (3) Bipolar disorder Assessment/Plan: She is back on her antidepressants. (4) Chronic pain Assessment/Plan: She is on low doses of narcotics and some of her pain meds, as needed. (5) Septic shock Assessment/Plan: Resolved, she is now hypertensive. - Current Meds Current Meds: Current Medications Generic Name Dose Route Start Last Admin Trade Name Freq PRN Reason Stop Dose Admin Acetaminophen 650 mg 03/10/18 07:55 03/11/18 22:52 Tylenol PO 650 mg Q4HR PRN Administration Pain or Fever > 38C (100.4F) Acetaminophen/Codeine Phosphate 1 tab 03/10/18 10:34 03/12/18 05:50 Tylenol #3 PO 1 tab Q4HR PRN Administration PAIN Albuterol/Ipratropium 3 ml 03/10/18 07:00 03/12/18 07:54 Duoneb INH 3 ml RTBID SILVERIO Administration Buspirone HCl 5 mg 03/11/18 21:00 03/12/18 09:28 Buspar PO 5 mg BID SILVERIO Administration Clonidine HCl 1 patch 03/12/18 13:27 03/12/18 14:25 Vxidiacd-Qfy-8 TOP 1 patch Q7D SILVERIO Administration Escitalopram Oxalate 40 mg 03/12/18 09:00 03/12/18 08:47 Lexapro PO 40 mg DAILY SILVERIO Administration Famotidine 20 mg 03/11/18 21:00 03/12/18 09:00 Pepcid PO 20 mg BID SILVERIO Administration Gabapentin 300 mg 03/11/18 22:00 03/12/18 14:30 Neurontin PO 300 mg TID SILVERIO Administration Guaifenesin 600 mg 03/10/18 09:00 03/12/18 08:28 Mucinex PO 600 mg BID SILVERIO Administration Heparin Sodium (Porcine) 5,000 unit 03/10/18 09:00 03/12/18 08:49 SUBQ 5,000 unit BID SILVERIO Administration Hydromorphone HCl 0.5 mg 03/10/18 16:50 03/12/18 12:40 Dilaudid (Vial) IVP 0.5 mg Q2H PRN Administration Severe Pain Sodium Chloride 1,000 mls @ 30 mls/hr 03/11/18 19:12 03/12/18 12:30 Normal Saline 0.9% IV 30 mls/hr .[id number] SILVERIO Infusion Ipratropium Russell 0.5 mg 03/10/18 01:11 03/11/18 14:40 Atrovent INH 0.5 mg Q6HR PRN Administration Wheezing Isosorbide Mononitrate 30 mg 03/12/18 00:34 03/12/18 08:29 Imdur PO 30 mg DAILY SILVERIO Administration Labetalol HCl 10 mg 03/12/18 00:32 03/12/18 12:44 Trandate Syringe IVP 10 mg Q6HR PRN Administration sbp>150 Metoprolol Tartrate 25 mg 03/11/18 16:06 03/12/18 08:28 Lopressor PO 25 mg DAILY SILVERIO Administration Ondansetron HCl 4 mg 03/10/18 01:11 03/11/18 12:49 Zofran Inj IVP 4 mg Q6HR PRN Administration Nausea / Vomiting Polyethylene Glycol 17 gm 03/12/18 09:00 03/12/18 08:47 Miralax PO 17 gm DAILY SILVERIO Administration Sodium Chloride 10 ml 03/10/18 09:00 03/12/18 08:25 Normal Saline Flush 0.9% IVP 10 ml 0100,0900,1700 SILVERIO Administration Sodium Chloride 10 ml 03/10/18 01:06 03/11/18 06:46 Normal Saline Flush 0.9% IVP 10 ml PRN PRN Administration NEEDED PER PROVIDER ORDERS Sodium Chloride 20 ml 03/11/18 02:23 03/11/18 03:49 Normal Saline Flush 0.9% IVP 20 ml PRN PRN Administration After Blood Draw - Lab Result Fish Bone Diagrams: 03/12/18 05:00 03/12/18 05:00 - Additional Planning My Orders: My Active Orders 03/11/18 19:12 Sodium Chloride 0.9% [Normal Saline 0.9%] 1,000 ml IV 30 mls/hr 03/11/18 21:00 Famotidine [Pepcid] 20 mg PO BID busPIRone [Buspar] 5 mg PO BID 03/11/18 22:00 Gabapentin [Neurontin] 300 mg PO TID 03/12/18 09:00 Escitalopram [Lexapro] 40 mg PO DAILY Polyethylene Glycol 3350 [Miralax] 17 gm PO DAILY 03/12/18 13:27 PICC Line Insert [RC] .ONCE cloNIDine 0.1 MG PATCH [Bkewntry-Cab-1] 1 patch TOP Q7D 03/12/18 13:28 LORazepam INJ [Ativan Inj (Vial)] 0.5 mg IVP Q4H PRN 03/12/18 Lunch DIET [Full Liquid Diet] [DIET] 03/13/18 00:30 Meropenem [Merrem] 500 mg Sodium Chloride 0.9% Minibag [Normal Saline 0.9% Minibag] 100 ml IV Q12H 03/13/18 05:00 CBC - COMP BLD CT W/AUTO DIFF [HEME] DAILYLAB CMP [COMPREHENSIVE METABOLIC PANEL] [CHEM] DAILYLAB MAGNESIUM [CHEM] DAILYLAB PHOSPHORUS [CHEM] DAILYLAB 03/14/18 05:00 CBC - COMP BLD CT W/AUTO DIFF [HEME] DAILYLAB CMP [COMPREHENSIVE METABOLIC PANEL] [CHEM] DAILYLAB MAGNESIUM [CHEM] DAILYLAB PHOSPHORUS [CHEM] DAILYLAB Subjective - Subjective Patient Reports: Other (Intermittently feels weird) Nursing Reports: Other (Intermittently SOB, fidgetty, SOB, somnolent. MICHOACANO fell out last night, today her peripheral iv infiltrated.) Objective Vital Signs: Vital Signs - 24 hr 03/11/18 03/11/18 03/11/18 18:00 19:00 20:00 Temperature 38.2 C H Heart Rate Heart Rate [ 105 H 100 94 Monitoring electrodes] Respiratory 20 20 18 Rate Blood Pressure Blood Pressure [Right Ankle] Blood Pressure 174/84 H 170/98 H 164/100 H [Right Brachial artery] Blood Pressure [Right Radial artery] O2 Saturation 93 95 96 03/11/18 03/11/18 03/11/18 20:50 21:13 22:15 Temperature Heart Rate 92 Heart Rate [ 93 90 Monitoring electrodes] Respiratory 16 14 19 Rate Blood Pressure Blood Pressure [Right Ankle] Blood Pressure 171/94 H [Right Brachial artery] Blood Pressure 161/112 H [Right Radial artery] O2 Saturation 96 97 03/11/18 03/12/18 03/12/18 23:00 00:00 00:35 Temperature 37.5 C Heart Rate Heart Rate [ 89 94 90 Monitoring electrodes] Respiratory 20 20 20 Rate Blood Pressure Blood Pressure [Right Ankle] Blood Pressure [Right Brachial artery] Blood Pressure 186/109 H [Right Radial artery] O2 Saturation 96 03/12/18 03/12/18 03/12/18 01:00 03:13 04:00 Temperature 37.5 C Heart Rate Heart Rate [ 96 96 94 Monitoring electrodes] Respiratory 19 14 18 Rate Blood Pressure Blood Pressure [Right Ankle] Blood Pressure 164/90 H [Right Brachial artery] Blood Pressure [Right Radial artery] O2 Saturation 96 92 03/12/18 03/12/18 03/12/18 05:00 06:00 07:00 Temperature Heart Rate Heart Rate [ 94 92 93 Monitoring electrodes] Respiratory 16 16 17 Rate Blood Pressure Blood Pressure [Right Ankle] Blood Pressure [Right Brachial artery] Blood Pressure 176/110 H 170/99 H [Right Radial artery] O2 Saturation 93 93 100 03/12/18 03/12/18 03/12/18 07:32 07:54 08:28 Temperature Heart Rate 92 Heart Rate [ 93 Monitoring electrodes] Respiratory 20 24 Rate Blood Pressure 177/91 H Blood Pressure [Right Ankle] Blood Pressure [Right Brachial artery] Blood Pressure 170/99 H [Right Radial artery] O2 Saturation 87 L 03/12/18 03/12/18 03/12/18 09:00 10:50 10:53 Temperature 37.5 C Heart Rate Heart Rate [ 98 93 115 H Monitoring electrodes] Respiratory 26 H 27 H 33 H Rate Blood Pressure Blood Pressure [Right Ankle] Blood Pressure [Right Brachial artery] Blood Pressure 240/121 H [Right Radial artery] O2 Saturation 96 87 L 87 L 03/12/18 03/12/18 03/12/18 11:42 12:00 12:55 Temperature 37.3 C 98.3 C H Heart Rate Heart Rate [ 94 85 Monitoring electrodes] Respiratory 17 Rate Blood Pressure Blood Pressure 231/123 H [Right Ankle] Blood Pressure [Right Brachial artery] Blood Pressure 209/173 H 147/112 H [Right Radial artery] O2 Saturation 95 03/12/18 03/12/18 03/12/18 12:58 13:00 13:05 Temperature Heart Rate Heart Rate [ 87 89 Monitoring electrodes] Respiratory Rate Blood Pressure Blood Pressure 182/113 H [Right Ankle] Blood Pressure [Right Brachial artery] Blood Pressure 167/116 H 182/113 H [Right Radial artery] O2 Saturation 03/12/18 03/12/18 03/12/18 13:10 13:14 13:30 Temperature Heart Rate Heart Rate [ 86 87 84 Monitoring electrodes] Respiratory 179 H Rate Blood Pressure Blood Pressure [Right Ankle] Blood Pressure [Right Brachial artery] Blood Pressure 187/119 H 139/87 H 192/115 H [Right Radial artery] O2 Saturation 03/12/18 03/12/18 03/12/18 13:45 14:00 14:30 Temperature Heart Rate Heart Rate [ 86 92 88 Monitoring electrodes] Respiratory 14 Rate Blood Pressure Blood Pressure [Right Ankle] Blood Pressure [Right Brachial artery] Blood Pressure 192/123 H 177/113 H 167/112 H [Right Radial artery] O2 Saturation 98 03/12/18 15:00 Temperature Heart Rate Heart Rate [ 81 Monitoring electrodes] Respiratory 14 Rate Blood Pressure Blood Pressure 213/134 H [Right Ankle] Blood Pressure [Right Brachial artery] Blood Pressure [Right Radial artery] O2 Saturation 94 Oxygen O2 Source Nasal cannula I&O (Last 24 Hrs): Intake and Output Totals x24h 03/10/18 03/11/18 03/12/18 23:59 23:59 23:59 Intake Total 9933.730 5321.187 1195 Output Total 955 2403 1675 Balance 8978.730 2918.187 -480 General: Mild distress HEENT: Mucous membr. moist/pink, Other (Lips cyanotic, off nasal cannula which is in her hair like a headband) Neuro: Disoriented Cardiovascular: Regular rate, No murmurs Respiratory: Other (scattered wheezes) Abdomen: Soft, No tenderness, Other (Obses with pannus) Extremities: No edema - Results Results: Laboratory Results WBC 16.2 x10^3/uL (4.8-10.8) H 03/12/18 05:00 RBC 3.61 10^6/uL (4.20-5.40) L 03/12/18 05:00 Hgb 10.1 g/dL (12.0-16.0) L 03/12/18 05:00 Hct 31.3 % (37.0-47.0) L 03/12/18 05:00 MCV 86.6 fL (81.0-99.0) 03/12/18 05:00 MCH 27.9 pg (27.0-31.0) 03/12/18 05:00 MCHC 32.2 g/dL (32.0-36.0) 03/12/18 05:00 RDW 14.8 % (12.0-15.0) 03/12/18 05:00 Plt Count 164 10^3/uL (130-450) 03/12/18 05:00 MPV 7.8 fL (7.9-10.8) L 03/12/18 05:00 Neut # (Auto) 14.5 10^3/uL (1.5-6.6) H 03/12/18 05:00 Lymph # (Auto) 0.7 10^3/uL (1.5-3.5) L 03/12/18 05:00 [place] # (Auto) 0.9 10^3/uL (0.0-1.0) 03/12/18 05:00 Eos # (Auto) 0.1 10^3/uL (0.0-0.7) 03/12/18 05:00 Baso # (Auto) 0.1 10^3/uL (0.0-0.1) 03/12/18 05:00 Absolute Nucleated RBC 0.00 x10^3/uL 03/12/18 05:00 Total Counted 100 03/11/18 02:50 Band Neuts % (Manual) 16 % (0-10) H 03/11/18 02:50 Abnorm Lymph % (Manual) 0 % 03/11/18 02:50 Metamyelocytes % 4 % (-0) H 03/09/18 22:15 Nucleated RBC % 0.0 /100WBC 03/12/18 05:00 Neutrophils # (Manual) 16.7 10^3/uL (1.5-6.6) H 03/11/18 02:50 Lymphocytes # (Manual) 2.0 10^3/uL (1.5-3.5) 03/11/18 02:50 Monocytes # (Manual) 1.2 10^3/uL (0.0-1.0) H 03/11/18 02:50 Eosinophils # (Manual) 0.2 10^3/uL (0-0.7) 03/11/18 02:50 Basophils # (Manual) 0.0 10^3/uL (0-0.1) 03/11/18 02:50 Differential Comment MANUAL DIFFERENTIAL 03/11/18 02:50 Manual Slide Review Indicated 03/09/18 22:15 Platelet Estimate NORMAL (130-450,000) (NORMAL) 03/11/18 02:50 Platelet Morphology NORMAL APPEARANCE (NORMAL) 03/09/18 22:15 RBC Morph Micro Appear NORMAL APPEARANCE (NORMAL) 03/11/18 02:50 VBG pH 7.352 (7.31-7.41) 03/11/18 08:09 Ionized Calcium 1.01 mmol/L (1.15-1.33) L 03/11/18 08:09 Sodium 136 mmol/L (135-145) 03/12/18 05:00 Potassium 3.7 mmol/L (3.5-5.0) 03/12/18 05:00 Chloride 105 mmol/L (101-111) 03/12/18 05:00 Carbon Dioxide 22 mmol/L (21-32) 03/12/18 05:00 Anion Gap 9.0 (6-13) 03/12/18 05:00 BUN 43 mg/dL (6-20) H 03/12/18 05:00 Creatinine 3.1 mg/dL (0.4-1.0) H 03/12/18 05:00 Estimated GFR (MDRD) 16 (>89) L 03/12/18 05:00 Glucose 120 mg/dL (70-100) H 03/12/18 05:00 Lactic Acid 1.0 mmol/L (0.5-2.2) 03/10/18 05:16 Calcium 7.7 mg/dL (8.5-10.3) L 03/12/18 05:00 Phosphorus 5.0 mg/dL (2.5-4.6) H 03/12/18 06:00 Magnesium 1.9 mg/dL (1.7-2.8) 03/12/18 06:00 Total Bilirubin 0.7 mg/dL (0.2-1.0) 03/12/18 05:00 AST 37 IU/L (10-42) 03/12/18 05:00 ALT 29 IU/L (10-60) 03/12/18 05:00 Alkaline Phosphatase 118 IU/L (42-121) 03/12/18 05:00 Total Creatine Kinase 54 IU/L (22-269) 03/09/18 22:15 Troponin I < 0.04 ng/mL (<0.49) 03/09/18 22:15 B-Natriuretic Peptide 148 pg/mL (5-100) H 03/09/18 22:15 Total Protein 6.1 g/dL (6.7-8.2) L 03/12/18 05:00 Albumin 2.5 g/dL (3.2-5.5) L 03/12/18 05:00 Globulin 3.6 g/dL (2.1-4.2) 03/12/18 05:00 Albumin/Globulin Ratio 0.7 (1.0-2.2) L 03/12/18 05:00 Lipase 15 U/L (22-51) L 03/09/18 22:15 TSH < 0.08 uIU/mL (0.34-5.60) L 03/09/18 22:15 Free T4 1.86 ng/dL (0.58-1.64) H 03/10/18 05:45 Urine Color YELLOW 03/10/18 01:05 Urine Clarity CLOUDY (CLEAR) 03/10/18 01:05 Urine pH 6.0 PH (5.0-7.5) 03/10/18 01:05 Ur Specific [place] 1.025 (1.002-1.030) 03/10/18 01:05 Urine Protein 100 mg/dL (NEGATIVE) H 03/10/18 01:05 Urine Glucose (UA) NEGATIVE mg/dL (NEGATIVE) 03/10/18 01:05 Urine Ketones NEGATIVE mg/dL (NEGATIVE) 03/10/18 01:05 Urine Occult Blood MODERATE (NEGATIVE) H 03/10/18 01:05 Urine Nitrite NEGATIVE (NEGATIVE) 03/10/18 01:05 Urine Bilirubin NEGATIVE (NEGATIVE) 03/10/18 01:05 Urine Urobilinogen 0.2 (NORMAL) E.U./dL (NORMAL) 03/10/18 01:05 Ur Leukocyte Esterase LARGE (NEGATIVE) H 03/10/18 01:05 Urine RBC 11-25 /HPF (0-5) H 03/10/18 01:05 Urine WBC >25 /HPF (0-5) H 03/10/18 01:05 Ur Squamous Epith Cells FEW Squamous (<= Few) 03/10/18 01:05 Urine Bacteria Many /HPF (None Seen) H 03/10/18 01:05 Ur Microscopic Review INDICATED 03/10/18 01:05 Urine Culture Comments INDICATED 03/10/18 01:05 Last Dose Date 03/10/18 03/11/18 02:50 Last Dose Time 1400 03/11/18 02:50 Random Gentamicin 18.8 ug/mL H* 03/11/18 02:50 Salicylates < 6.0 mg/dL 03/09/18 22:15 Urine Opiates Screen POSITIVE (NEGATIVE) H 03/10/18 01:05 Ur Oxycodone Screen NEGATIVE (NEGATIVE) 03/10/18 01:05 Urine Methadone Screen NEGATIVE (NEGATIVE) 03/10/18 01:05 Ur Propoxyphene Screen NEGATIVE (NEGATIVE) 03/10/18 01:05 Acetaminophen < 10 ug/mL (10-30) L 03/09/18 22:15 Ur Barbiturates Screen NEGATIVE (NEGATIVE) 03/10/18 01:05 Ur Tricyclics Screen NEGATIVE (NEGATIVE) 03/10/18 01:05 Ur Phencyclidine Scrn NEGATIVE (NEGATIVE) 03/10/18 01:05 Ur Amphetamine Screen NEGATIVE (NEGATIVE) 03/10/18 01:05 U Methamphetamines Scrn NEGATIVE (NEGATIVE) 03/10/18 01:05 U Benzodiazepines Scrn NEGATIVE (NEGATIVE) 03/10/18 01:05 Urine Cocaine Screen NEGATIVE (NEGATIVE) 03/10/18 01:05 U Cannabinoids Screen NEGATIVE (NEGATIVE) 03/10/18 01:05 Ethyl Alcohol < 5.0 mg/dL 03/09/18 22:15 Influenza A (Rapid) Negative (Negative) 03/12/18 01:20 Influenza B (Rapid) Negative (Negative) 03/12/18 01:20
[2018-03-12] MEDS: ONDANSETRON 4 MG/2 ML VIAL IVP PRN (17:57)
[2018-03-12] MEDS: LORazepam 2 MG/ML VIAL IVP PRN (19:07)
[2018-03-12] MEDS ORDERED: FUROSEMIDE 40 MG/4 ML VIAL IVP STA (20:21)
[2018-03-12] MEDS ORDERED: FUROSEMIDE 20 MG/2 ML VIAL IVP ONE (20:31)
[2018-03-12] MEDS ORDERED: FUROSEMIDE 40 MG/4 ML VIAL IVP SCH (20:47)
[2018-03-12 21:03] LABS: ALBUMIN 2.7 g/dL (3.2-5.5); ALBUMIN/GLOBULIN RATIO 0.7 (1.0-2.2); BILIRUBIN,TOTAL 0.8 mg/dL (0.2-1.0); CALCIUM 7.9 mg/dL (8.5-10.3); CREATININE 2.8 mg/dL (0.4-1.0); TOTAL PROTEIN 6.7 g/dL (6.7-8.2)
[2018-03-12] MEDS: METOPROLOL 5 MG/5 ML VIAL IVP SCH (21:34)
[2018-03-12 21:36] LABS: ABG BASE EXCESS -1.1 mmol/L (-2.0-3.0); ABG HCO3 24.6 mmol/L (22.0-26.0); ABG OXYGEN SATURATION 98 % (94-98); ABG PCO2 45 mmHg (34-45); ABG PH 7.35 (7.35-7.45); ABG PO2 116 mmHg (80-100); ALLEN TEST POSITIVE
[2018-03-12] MEDS ORDERED: ALBUMIN 25% 12.5 GM/50 ML VIAL IV STA (22:15)
[2018-03-13] MEDS ORDERED: MEROPENEM 500 MG in SODIUM CHLORIDE 0.9% MINIBAG 100 ML IV SCH (00:30)
[2018-03-13] MEDS: LORazepam 2 MG/ML VIAL IVP PRN ×3 (01:41→23:39)
[2018-03-13] MEDS: NITROGLYCERIN 50 MG/250 ML 50 MG/250 ML BOTTLE IV SCH ×3 (01:49→22:14)
[2018-03-13] MEDS: SODIUM CHLORIDE FLUSH 0.9% 10 ML SYRINGE IVP SCH ×3 (01:55→19:06)
[2018-03-13] MEDS: METOPROLOL 5 MG/5 ML VIAL IVP SCH ×4 (03:06→21:35)
[2018-03-13] MEDS: HYDROmorphone 2 MG/ML VIAL IVP PRN ×4 (03:50→21:44)
[2018-03-13] MEDS: IPRATROPIUM/ALBUTEROL 3 ML NEB INH SCH ×2 (05:39→18:21)
[2018-03-13] MEDS: GABAPENTIN 300 MG CAPSULE PO SCH ×3 (05:43→21:35)
[2018-03-13 06:09] LABS: BASOPHILS # (AUTO) 0.1 10^3/uL (0.0-0.1); BASOPHILS % (AUTO) 0.4 %; EOSINOPHILS # (AUTO) 0.1 10^3/uL (0.0-0.7); EOSINOPHILS % (AUTO) 0.6 %; HGB - HEMOGLOBIN 10.9 g/dL (12.0-16.0); LYMPHOCYTES # (AUTO) 0.9 10^3/uL (1.5-3.5); LYMPHOCYTES % (AUTO) 6.4 %; MEAN CORPUSCULAR HEMOGLOBIN 28.3 pg (27.0-31.0); MEAN CORPUSCULAR HGB CONC 33.3 g/dL (32.0-36.0); MEAN PLATELET VOLUME 7.7 fL (7.9-10.8); MONOCYTES # (AUTO) 1.3 10^3/uL (0.0-1.0); MONOCYTES % (AUTO) 8.5 %; NEUTROPHILS # (AUTO) 12.5 10^3/uL (1.5-6.6); NEUTROPHILS % (AUTO) 84.1 %; PLT - PLATELET COUNT 190 10^3/uL (130-450); RED BLOOD COUNT 3.87 10^6/uL (4.20-5.40); RED CELL DISTRIBUTION WIDTH 14.7 % (12.0-15.0); WHITE BLOOD COUNT 14.8 x10^3/uL (4.8-10.8)
[2018-03-13 06:24] LABS: ALBUMIN 2.8 g/dL (3.2-5.5); ALBUMIN/GLOBULIN RATIO 0.7 (1.0-2.2); BILIRUBIN,TOTAL 0.5 mg/dL (0.2-1.0); CALCIUM 8.3 mg/dL (8.5-10.3); CREATININE 2.7 mg/dL (0.4-1.0); PHOSPHORUS 4.6 mg/dL (2.5-4.6); TOTAL PROTEIN 6.9 g/dL (6.7-8.2)
--- NOTE | 2018-03-13 07:51 | PROVIDER PROGRESS NOTE ---
Subjective - Prog Note Date Prog Note Date: 03/13/18 Prog Note Time: 15:29 - Subjective Subjective: This morning I came on service. She was agitated, had destroyed the BiPAP mask. Did not want to keep it on. She is a morbidly obese white female that was presented to me as weak, dizzy, unable to get off the floor. Found to have sepsis from E. coli. Most likely UTI is the source. She was initially on Zosyn. Gentamicin was added to Zosyn. However with her sepsis she was hypotensive and had a bump in her creatinine. With the addition of Zosyn and gentamicin her creatinine got even higher. As such she was taken off creatinine and then changed to meropenem and Zosyn. Now that her cultures have shown E. coli sensitive to everything she is been sent changed to Rocephin. It is only the urine cultures that are positive. Blood cultures have been negative on the and the . There is still also the issues of her sedation. Even though her sepsis has resolved and she is now hypertensive requiring control of her blood pressure with nitroglycerin drip, and no longer febrile, she is still not quite right. She is improved from this morning's agitation where she could not even follow simple commands. She is following commands better this afternoon. Blood gases were done to make sure she was not hypercapnic. PH was 7.39, PCO2 47, PO2 74 on BiPAP. She was not hypercapnic and asked that she was taken off BiPAP. Current Medications - Current Medications Current Medications: Active Medications Acetaminophen (Tylenol) 650 mg PO Q4HR PRN PRN Reason: Pain or Fever > 38C (100.4F) Last Admin: 03/11/18 22:52 Dose: 650 mg Acetaminophen/Codeine Phosphate (Tylenol #3) 1 tab PO Q4HR PRN PRN Reason: PAIN Last Admin: 03/12/18 05:50 Dose: 1 tab Albuterol/Ipratropium (Duoneb) 3 ml INH RTBID [facility] Last Admin: 03/13/18 05:39 Dose: 3 ml Buspirone HCl (Buspar) 5 mg PO BID [facility] Last Admin: 03/12/18 20:58 Dose: Not Given Escitalopram Oxalate (Lexapro) 40 mg PO DAILY [facility] Last Admin: 03/12/18 08:47 Dose: 40 mg Famotidine (Pepcid) 20 mg PO BID [facility] Last Admin: 03/12/18 20:58 Dose: Not Given Gabapentin (Neurontin) 300 mg PO TID [facility] Last Admin: 03/13/18 05:43 Dose: Not Given Guaifenesin (Mucinex) 600 mg PO BID [facility] Last Admin: 03/12/18 20:58 Dose: Not Given Heparin Sodium (Beef Lung) () 30 - 50 unit IVP PRN PRN PRN Reason: Central Line Protocol (<24 hr) Heparin Sodium (Porcine) () 5,000 unit SUBQ BID [facility] Last Admin: 03/12/18 21:00 Dose: 5,000 unit Hydromorphone HCl (Dilaudid (Vial)) 0.5 mg IVP Q2H PRN PRN Reason: Severe Pain Last Admin: 03/13/18 03:50 Dose: 0.5 mg Nitroglycerin (Nitroglycerin) 50 mg in 250 mls @ 1.5 mls/hr IV .Q72H [facility]; Protocol Last Titration: 03/13/18 07:08 Dose: 60 mcg/min, 18 mls/hr Ceftriaxone Sodium 1 gm/ (Sodium Chloride) 100 mls @ 200 mls/hr IV DAILY [facility] Potassium Chloride (Potassium Chloride) 20 meq in 100 mls @ 50 mls/hr IV Q2H [facility]; Protocol Stop: 03/13/18 10:59 Ipratropium [place] (Atrovent) 0.5 mg INH Q6HR PRN PRN Reason: Wheezing Last Admin: 03/11/18 14:40 Dose: 0.5 mg Labetalol HCl (Trandate Syringe) 10 mg IVP Q6HR PRN PRN Reason: sbp>150 Last Admin: 03/12/18 22:56 Dose: 10 mg Lorazepam (Ativan Inj (Vial)) 0.5 mg IVP Q4H PRN PRN Reason: Anxiety Last Admin: 03/13/18 01:41 Dose: 0.5 mg Metoprolol Tartrate (Lopressor Inj) 5 mg IVP Q6H [facility] Last Admin: 03/13/18 03:06 Dose: 5 mg Mineral Oil (Cavilon) 1 applic TOP PRN PRN PRN Reason: Skin Care Ondansetron HCl (Zofran Inj) 4 mg IVP Q6HR PRN PRN Reason: Nausea / Vomiting Last Admin: 03/12/18 17:57 Dose: 4 mg Polyethylene Glycol (Miralax) 17 gm PO DAILY [facility] Last Admin: 03/12/18 08:47 Dose: 17 gm Sodium Chloride (Normal Saline Flush 0.9%) 10 ml IVP 0100,0900,1700 [facility] Last Admin: 03/13/18 01:55 Dose: Not Given Sodium Chloride (Normal Saline Flush 0.9%) 10 ml IVP PRN PRN PRN Reason: NEEDED PER PROVIDER ORDERS Last Admin: 03/11/18 06:46 Dose: 10 ml Sodium Chloride (Normal Saline Flush 0.9%) 20 ml IVP PRN PRN PRN Reason: After Blood Draw Last Admin: 03/11/18 03:49 Dose: 20 ml Escitalopram [Lexapro] 40 mg PO DAILY 04/01/14 Estrogens, Conjugated [Premarin] 1.25 mg PO DAILY 04/01/14 Gabapentin 300 mg PO TID 11/25/16 busPIRone [Buspar] 5 mg PO BID 03/13/17 Celecoxib 200 mg PO BID 03/10/18 Levothyroxine Sodium 300 mcg PO DAILY 03/10/18 Tizanidine HCl 4 mg PO TID PRN 03/10/18 Trazodone HCl 100 mg PO QPM PRN 03/10/18 Objective - Vital Signs/Intake & Output Reviewed Vital Signs: Yes Vital Signs: Vital Signs Temp Pulse Pulse Resp BP Pulse Ox 03/13/18 07:00 91 15 181/111 H 96 03/13/18 06:00 90 14 176/106 H 96 03/13/18 05:41 90 15 03/13/18 05:00 88 12 180/114 H 96 03/13/18 04:41 89 03/13/18 04:00 36.9 C 87 13 191/116 H 96 Intake & Output: Intake & Output 03/10/18 03/11/18 03/12/18 03/13/18 23:59 23:59 23:59 23:59 Intake Total 9933.730 5321.187 2353.75 266.175 Output Total 952 2403 4200 6026 Balance 8978.730 2918.187 -1846.25 -5808.825 - Lab Results Fish Bones: 03/14/18 04:20 03/14/18 04:20 Other Labs: Lab Results x24hrs 03/13/18 03/13/18 03/12/18 Range/Units 05:17 05:17 21:30 WBC 14.8 H (4.8-10.8) x10^3/uL RBC 3.87 L (4.20-5.40) 10^6/uL Hgb 10.9 L (12.0-16.0) g/dL Hct 32.9 L (37.0-47.0) % MCV 85.0 (81.0-99.0) fL MCH 28.3 (27.0-31.0) pg MCHC 33.3 (32.0-36.0) g/dL RDW 14.7 (12.0-15.0) % Plt Count 190 (130-450) 10^3/uL MPV 7.7 L (7.9-10.8) fL Neut # (Auto) 12.5 H (1.5-6.6) 10^3/uL Lymph # (Auto) 0.9 L (1.5-3.5) 10^3/uL Rankin # (Auto) 1.3 H (0.0-1.0) 10^3/uL Eos # (Auto) 0.1 (0.0-0.7) 10^3/uL Baso # (Auto) 0.1 (0.0-0.1) 10^3/uL Absolute Nucleated RBC 0.02 x10^3/uL Nucleated RBC % 0.1 /100WBC Bld Gas Analysis Time 213 Sample Site RIGHT RADIAL ABG pH 7.35 (7.35-7.45) ABG pCO2 45 (34-45) mmHg ABG pO2 116 H (80-100) mmHg ABG HCO3 24.6 (22.0-26.0) mmol/L ABG Total CO2 26.0 (21.0-29.0) MMOL/L ABG O2 Saturation 98 (94-98) % ABG Base Excess -1.1 (-2.0-3.0) mmol/L Amarjit Test POSITIVE Respiration Rate 20 b/min O2 Delivery Device BiPAP O2 Liters/Min 45.00 LPM Vent Mode SYNCHRONOUS/TIMES FiO2 98.00 Tidal Volume 480 mL PEEP 5 cmH2O Pressure Support Vent 7 cmH2O EPAP 5 cmH2O IPAP 12 cmH2O Sodium 139 (135-145) mmol/L Potassium 3.4 L (3.5-5.0) mmol/L Chloride 98 L (101-111) mmol/L Carbon Dioxide 28 (21-32) mmol/L Anion Gap 13.0 (6-13) BUN 41 H (6-20) mg/dL Creatinine 2.7 H (0.4-1.0) mg/dL Estimated GFR (MDRD) 18 L (>89) Glucose 148 H (70-100) mg/dL Lactic Acid (0.5-2.2) mmol/L Calcium 8.3 L (8.5-10.3) mg/dL Phosphorus 4.6 (2.5-4.6) mg/dL Magnesium 2.0 (1.7-2.8) mg/dL Total Bilirubin 0.5 (0.2-1.0) mg/dL AST 33 (10-42) IU/L ALT 31 (10-60) IU/L Alkaline Phosphatase 133 H (42-121) IU/L Troponin I (<0.49) ng/mL Total Protein 6.9 (6.7-8.2) g/dL Albumin 2.8 L (3.2-5.5) g/dL Globulin 4.1 (2.1-4.2) g/dL Albumin/Globulin Ratio 0.7 L (1.0-2.2) 03/12/18 03/12/18 03/12/18 Range/Units 20:48 20:48 20:35 WBC (4.8-10.8) x10^3/uL RBC (4.20-5.40) 10^6/uL Hgb (12.0-16.0) g/dL Hct (37.0-47.0) % MCV (81.0-99.0) fL MCH (27.0-31.0) pg MCHC (32.0-36.0) g/dL RDW (12.0-15.0) % Plt Count (130-450) 10^3/uL MPV (7.9-10.8) fL Neut # (Auto) (1.5-6.6) 10^3/uL Lymph # (Auto) (1.5-3.5) 10^3/uL Rankin # (Auto) (0.0-1.0) 10^3/uL Eos # (Auto) (0.0-0.7) 10^3/uL Baso # (Auto) (0.0-0.1) 10^3/uL Absolute Nucleated RBC x10^3/uL Nucleated RBC % /100WBC Bld Gas Analysis Time Sample Site ABG pH (7.35-7.45) ABG pCO2 (34-45) mmHg ABG pO2 (80-100) mmHg ABG HCO3 (22.0-26.0) mmol/L ABG Total CO2 (21.0-29.0) MMOL/L ABG O2 Saturation (94-98) % ABG Base Excess (-2.0-3.0) mmol/L Amarjit Test Respiration Rate b/min O2 Delivery Device O2 Liters/Min LPM Vent Mode FiO2 Tidal Volume mL PEEP cmH2O Pressure Support Vent cmH2O EPAP cmH2O IPAP cmH2O Sodium 139 (135-145) mmol/L Potassium 4.0 (3.5-5.0) mmol/L Chloride 106 (101-111) mmol/L Carbon Dioxide 23 (21-32) mmol/L Anion Gap 10.0 (6-13) BUN 42 H (6-20) mg/dL Creatinine 2.8 H (0.4-1.0) mg/dL Estimated GFR (MDRD) 17 L (>89) Glucose 148 H (70-100) mg/dL Lactic Acid 1.3 (0.5-2.2) mmol/L Calcium 7.9 L (8.5-10.3) mg/dL Phosphorus (2.5-4.6) mg/dL Magnesium (1.7-2.8) mg/dL Total Bilirubin 0.8 (0.2-1.0) mg/dL AST 48 H (10-42) IU/L ALT 35 (10-60) IU/L Alkaline Phosphatase 141 H (42-121) IU/L Troponin I 0.05 (<0.49) ng/mL Total Protein 6.7 (6.7-8.2) g/dL Albumin 2.7 L (3.2-5.5) g/dL Globulin 4.0 (2.1-4.2) g/dL Albumin/Globulin Ratio 0.7 L (1.0-2.2) Sepsis Event Note (H) - Evaluation Current Stage of Sepsis: Septic shock Possible source of Sepsis: positive: Genitourinary Confirmed Source and Organism (if known) of Sepsis: E coli UTI Sepsis Associated Organ Dysfunction: hypotension - Sepsis Criteria Sepsis Criteria: Recorded Heart Rate greater than 90 bpm, Recorded Respiratory Rate greater than 20, Respiratory: Increasing oxygen requirements, WBC count greater than 12,000 or less than 4000, SBP drop more than 40mHg, MAP less than 65 mmHg, Metabolic: lactate > 2 mmol/L Assessment/Plan - Problem List (1) Sepsis due to Escherichia coli Impression: She is a morbidly obese female who presented to the emergency room the third into the sales training representative hours of March 10 with a main complaint of dizziness for 2 days. She was so dizzy and weak she could not get up. She had slid back to the floor and could not get up. She was somnolent and very sleepy in the emergency room. She did have positive review of systems for UTI. There was also a question of taking more trazodone and tizanidine than prescribed. She was hypotensive, hypothermic, sedated and O2 sat 96% on room air. Once workup was done and hydration began, patient then became hypotensive, bradycardic, met criteria of sepsis. The source is the urine with E coli with the same sensitivities are growing in the urine culture. 03/12 blood culture (done with fever spike) is this far neg at 24 hours. Her WBC is decreasing daily.White cell count started at 29.2. She was 16.2 in March 12. And 14.8 on March 13. She was initially on Zosyn, then Zosyn and gentamicin. With worsening creatinine gentamicin stopped and she was put on meropenem and Zosyn. She was also given moxifloxacin 1 dose. She stayed on Zosyn and meropenem until yesterday when cultures were finalized and E. coli is pansensitive. She is now on Rocephin day #2. Blood cultures negative March 11. She will need 14 days of IV antibiotic therapy with discontinuation March 24 after that dose Will ask for placement of a PICC line, since she will need 14 dauys of iv antibiotics due to bacteria in the blood stream. TTherefore, she will need nursing care at a SNF for this treatment plan, when she is clinically dtable for DCh, in several days; the Rv Service Technician was informed. Monitor CBC daily (2) Acute respiratory distress with hypercapnea and hypoxia. From fluid overload. Resulted in hypertension and acute respiratory distress this am with transfer to ICU and needing BiPAP but she couldn't keep it on. She responded nicely to lasix and diuresed extensively. She really won't keep mask on. Will check ABG to see if we can take it off now I also suspect she has SHOBHA and obesity hypoventilaiton syndrome. CXR 03/12 w low lung volumes and basilar atelectasis. (3) CONSTANTIN (acute kidney injury) Assessment/Plan: The creat has stabilized but not reversing down to normal yet. It is likely from ATN due to hypotension (when she was in shock), and nephrotoxins (which have been stopped). Continue gentle hydration, and try not to use diuretics if her pulmonary condition can tolerate that. Monitor BMP daily. (4) Bipolar disorder Assessment/Plan: She is back on her antidepressants. (5) Chronic pain Assessment/Plan: She is on low doses of narcotics and some of her pain meds, as needed. (6) Septic shock Assessment/Plan: Resolved, she is now hypertensive.
[2018-03-13] MEDS: SODIUM CHLORIDE FLUSH 0.9% 10 ML SYRINGE IVP PRN ×7 (08:52→16:09)
[2018-03-13] MEDS: POTASSIUM CHLOR 20 MEQ/100 ML 20 MEQ/100 ML BAG IV SCH ×2 (08:53→10:41)
[2018-03-13] MEDS: LABETALOL 20 MG/4 ML SYRINGE IVP PRN ×3 (08:59→23:39)
[2018-03-13] MEDS: MIN OIL/DIMETHICON/COCONUT OIL 92 GM TUBE TOP PRN ×3 (09:00→16:37)
[2018-03-13] MEDS: cefTRIAXone 1 GM in SODIUM CHLORIDE 0.9% MINIBAG 100 ML IV SCH (09:44)
[2018-03-13] MEDS: HEPARIN 5,000 UNIT/ML VIAL SUBQ SCH ×2 (09:59→21:41)
[2018-03-13] MEDS: guaiFENesin 600 MG TABLET PO SCH ×2 (10:32→21:35)
[2018-03-13] MEDS: FAMOTIDINE 20 MG TABLET PO SCH ×2 (10:32→21:35)
[2018-03-13] MEDS: busPIRone 5 MG TABLET PO SCH ×2 (10:32→21:35)
[2018-03-13] MEDS: ESCITALOPRAM 10 MG TABLET PO SCH (10:32)
[2018-03-13] MEDS: POLYETHYLENE GLYCOL 3350 17 GM PACKET PO SCH (10:34)
[2018-03-13 11:41] LABS: ABG BASE EXCESS 2.4 mmol/L (-2.0-3.0); ABG HCO3 27.9 mmol/L (22.0-26.0); ABG OXYGEN SATURATION 95 % (94-98); ABG PCO2 47 mmHg (34-45); ABG PH 7.39 (7.35-7.45); ABG PO2 74 mmHg (80-100); ABG TCO2 29.3 MMOL/L (21.0-29.0); ALLEN TEST POSITIVE
[2018-03-13] MEDS: SODIUM CHLORIDE 0.9% 500 ML IV PRN (14:17)
[2018-03-13] MEDS: ACETAMINOPHEN 325 MG TABLET PO PRN (18:14)
[2018-03-14] MEDS: SODIUM CHLORIDE FLUSH 0.9% 10 ML SYRINGE IVP SCH ×4 (01:54→21:05)
[2018-03-14] MEDS ORDERED: QUEtiapine 25 MG TABLET ONE (02:22)
[2018-03-14] MEDS: METOPROLOL 5 MG/5 ML VIAL IVP SCH ×4 (02:56→20:43)
[2018-03-14 04:41] LABS: BASOPHILS # (AUTO) 0.1 10^3/uL (0.0-0.1); BASOPHILS % (AUTO) 0.4 %; EOSINOPHILS # (AUTO) 0.5 10^3/uL (0.0-0.7); EOSINOPHILS % (AUTO) 3.6 %; HGB - HEMOGLOBIN 10.3 g/dL (12.0-16.0); LYMPHOCYTES % (AUTO) 7.5 %; MEAN CORPUSCULAR HEMOGLOBIN 27.9 pg (27.0-31.0); MEAN CORPUSCULAR HGB CONC 33.2 g/dL (32.0-36.0); MEAN CORPUSCULAR VOLUME 83.9 fL (81.0-99.0); MEAN PLATELET VOLUME 7.5 fL (7.9-10.8); MONOCYTES # (AUTO) 1.4 10^3/uL (0.0-1.0); MONOCYTES % (AUTO) 10.4 %; NEUTROPHILS # (AUTO) 10.9 10^3/uL (1.5-6.6); NEUTROPHILS % (AUTO) 78.1 %; PLT - PLATELET COUNT 227 10^3/uL (130-450); RED CELL DISTRIBUTION WIDTH 14.7 % (12.0-15.0); WHITE BLOOD COUNT 13.9 x10^3/uL (4.8-10.8)
[2018-03-14 04:52] LABS: ALBUMIN 2.5 g/dL (3.2-5.5); ALBUMIN/GLOBULIN RATIO 0.7 (1.0-2.2); BILIRUBIN,TOTAL 0.4 mg/dL (0.2-1.0); CALCIUM 7.9 mg/dL (8.5-10.3); MAGNESIUM 1.6 mg/dL (1.7-2.8); PHOSPHORUS 2.9 mg/dL (2.5-4.6); TOTAL PROTEIN 6.2 g/dL (6.7-8.2)
[2018-03-14] MEDS: NITROGLYCERIN 50 MG/250 ML 50 MG/250 ML BOTTLE IV SCH ×3 (05:10→17:47)
[2018-03-14] MEDS: GABAPENTIN 300 MG CAPSULE PO SCH ×4 (06:06→20:41)
[2018-03-14] MEDS: LABETALOL 20 MG/4 ML SYRINGE IVP PRN ×2 (06:14→16:37)
[2018-03-14] MEDS ORDERED: MAGNESIUM SULFATE 2 GRAM 2 GM/50 ML BAG IV ONE (06:26)
[2018-03-14] MEDS: POTASSIUM CHLOR 20 MEQ/100 ML 20 MEQ/100 ML BAG IV SCH ×2 (06:45→09:01)
[2018-03-14] MEDS: ESCITALOPRAM 10 MG TABLET PO SCH (08:08)
[2018-03-14] MEDS: cefTRIAXone 1 GM in SODIUM CHLORIDE 0.9% MINIBAG 100 ML IV SCH (08:08)
[2018-03-14] MEDS: busPIRone 5 MG TABLET PO SCH ×2 (08:08→20:41)
[2018-03-14] MEDS: POLYETHYLENE GLYCOL 3350 17 GM PACKET PO SCH (08:09)
[2018-03-14] MEDS: HEPARIN 5,000 UNIT/ML VIAL SUBQ SCH ×2 (08:09→20:42)
[2018-03-14] MEDS: FAMOTIDINE 20 MG TABLET PO SCH ×2 (08:09→20:40)
[2018-03-14] MEDS: guaiFENesin 600 MG TABLET PO SCH ×2 (08:09→20:41)
[2018-03-14] MEDS: IPRATROPIUM/ALBUTEROL 3 ML NEB INH SCH ×2 (08:30→20:55)
--- NOTE | 2018-03-14 16:00 | PROVIDER PROGRESS NOTE ---
Subjective - Prog Note Date Prog Note Date: 03/14/18 Prog Note Time: 16:01 - Subjective Subjective: She is still confused. But not agitated. Able to follow directions better. Started on a diet yesterday and is eating. She denies any back pain, belly pain. Says her back hurts like always. Does not remember much. Does not remembers meeting me yesterday. Her lucidity is intermittent and she will get easily confused. But overall she is able to speak in sentences today and follow instructions today Current Medications - Current Medications Current Medications: Active Medications Acetaminophen (Tylenol) 650 mg PO Q4HR PRN PRN Reason: Pain or Fever > 38C (100.4F) Last Admin: 03/13/18 18:14 Dose: 650 mg Acetaminophen/Codeine Phosphate (Tylenol #3) 1 tab PO Q4HR PRN PRN Reason: PAIN Last Admin: 03/12/18 05:50 Dose: 1 tab Albuterol/Ipratropium (Duoneb) 3 ml INH RTBID [facility] Last Admin: 03/14/18 08:30 Dose: Not Given Buspirone HCl (Buspar) 5 mg PO BID [facility] Last Admin: 03/14/18 08:08 Dose: 5 mg Escitalopram Oxalate (Lexapro) 40 mg PO DAILY [facility] Last Admin: 03/14/18 08:08 Dose: 40 mg Famotidine (Pepcid) 20 mg PO BID [facility] Last Admin: 03/14/18 08:09 Dose: 20 mg Gabapentin (Neurontin) 300 mg PO TID [facility] Last Admin: 03/14/18 14:20 Dose: 300 mg Guaifenesin (Mucinex) 600 mg PO BID [facility] Last Admin: 03/14/18 08:09 Dose: 600 mg Heparin Sodium (Beef Lung) () 30 - 50 unit IVP PRN PRN PRN Reason: Central Line Protocol (<24 hr) Heparin Sodium (Porcine) () 5,000 unit SUBQ BID [facility] Last Admin: 03/14/18 08:09 Dose: 5,000 unit Hydromorphone HCl (Dilaudid (Vial)) 0.5 mg IVP Q2H PRN PRN Reason: Severe Pain Last Admin: 03/13/18 21:44 Dose: 0.5 mg Nitroglycerin (Nitroglycerin) 50 mg in 250 mls @ 1.5 mls/hr IV .Q72H [facility]; Protocol Last Titration: 03/14/18 15:04 Dose: 120 mcg/min, 36 mls/hr Ceftriaxone Sodium 1 gm/ (Sodium Chloride) 100 mls @ 200 mls/hr IV DAILY [facility] Last Infusion: 03/14/18 09:01 Dose: Infused Sodium Chloride (Normal Saline 0.9%) 500 mls @ 0 mls/hr IV Q24H PRN PRN Reason: TKO RATE Last Admin: 03/13/18 14:17 Dose: 20 mls/hr Ipratropium [place] (Atrovent) 0.5 mg INH Q6HR PRN PRN Reason: Wheezing Last Admin: 03/11/18 14:40 Dose: 0.5 mg Labetalol HCl (Trandate Syringe) 10 mg IVP Q6HR PRN PRN Reason: sbp>150 Last Admin: 03/14/18 06:14 Dose: 10 mg Lorazepam (Ativan Inj (Vial)) 0.5 mg IVP Q4H PRN PRN Reason: Anxiety Last Admin: 03/13/18 23:39 Dose: 0.5 mg Metoprolol Tartrate (Lopressor Inj) 5 mg IVP Q6H [facility] Last Admin: 03/14/18 14:19 Dose: 5 mg Mineral Oil (Cavilon) 1 applic TOP PRN PRN PRN Reason: Skin Care Last Admin: 03/13/18 16:37 Dose: 1 applic Ondansetron HCl (Zofran Inj) 4 mg IVP Q6HR PRN PRN Reason: Nausea / Vomiting Last Admin: 03/12/18 17:57 Dose: 4 mg Polyethylene Glycol (Miralax) 17 gm PO DAILY [facility] Last Admin: 03/14/18 08:09 Dose: 17 gm Quetiapine Fumarate (Seroquel) 50 mg PO QPM [facility] Sodium Chloride (Normal Saline Flush 0.9%) 10 ml IVP 0100,0900,1700 [facility] Last Admin: 03/14/18 08:09 Dose: 10 ml Sodium Chloride (Normal Saline Flush 0.9%) 10 ml IVP PRN PRN PRN Reason: NEEDED PER PROVIDER ORDERS Last Admin: 03/13/18 16:09 Dose: 10 ml Sodium Chloride (Normal Saline Flush 0.9%) 20 ml IVP PRN PRN PRN Reason: After Blood Draw Last Admin: 03/11/18 03:49 Dose: 20 ml Escitalopram [Lexapro] 40 mg PO DAILY 04/01/14 Estrogens, Conjugated [Premarin] 1.25 mg PO DAILY 04/01/14 Gabapentin 300 mg PO TID 11/25/16 busPIRone [Buspar] 5 mg PO BID 03/13/17 Celecoxib 200 mg PO BID 03/10/18 Levothyroxine Sodium 300 mcg PO DAILY 03/10/18 Tizanidine HCl 4 mg PO TID PRN 03/10/18 Trazodone HCl 100 mg PO QPM PRN 03/10/18 Objective - Vital Signs/Intake & Output Reviewed Vital Signs: Yes Vital Signs: Vital Signs Temp Pulse Resp BP BP Pulse Ox 03/14/18 15:19 148/95 H 03/14/18 15:00 83 16 160/108 H 96 03/14/18 14:36 150/97 H 03/14/18 14:19 170/91 H 03/14/18 14:00 80 15 173/91 H 97 03/14/18 13:30 136/76 H 03/14/18 13:00 84 18 149/98 H 98 03/14/18 12:00 37.2 C 87 21 159/92 H 94 Intake & Output: Intake & Output 03/11/18 03/12/18 03/13/18 03/14/18 23:59 23:59 23:59 23:59 Intake Total 5321.187 2353.75 2404.175 2017.85 Output Total 2403 4200 8155 1665 Balance 2918.187 -1846.25 -5750.825 352.85 - Objective General Appearance: positive: No acute distress, Other (Morbidly obese white female laying partially upright, but not fully upright and as such not in a great position to breathe appropriately) Eyes Bilateral: positive: PERRL, EOMI ENT: positive: Pharynx nml Neck: negative: Stiff neck, Carotid bruit Respiratory: positive: Chest non-tender, Other (Diminished breath sounds at the bases, quiet lungs. When she falls asleep she still uses her abdominal muscles to pull upwards to inhale.). negative: Wheezes, Rales, Rhonchi Cardiovascular: positive: Regular rate & rhythm. negative: Gallop/S4, Friction rub Abdomen: positive: Non-tender, Nml bowel sounds, Other (Too large of a belly pannus to assess for organomegaly). negative: Guarding, Rebound Skin: positive: Warm, Dry, Pallor Extremities: positive: Full ROM, Pedal edema Neurologic/Psychiatric: positive: CN's nml (2-12), Motor nml, Disoriented to place, Disoriented to time, Weakness - Lab Results Fish Bones: 03/14/18 04:20 03/14/18 04:20 Other Labs: Lab Results x24hrs 03/14/18 03/14/18 Range/Units 04:20 04:20 WBC 13.9 H (4.8-10.8) x10^3/uL RBC 3.70 L (4.20-5.40) 10^6/uL Hgb 10.3 L (12.0-16.0) g/dL Hct 31.0 L (37.0-47.0) % MCV 83.9 (81.0-99.0) fL MCH 27.9 (27.0-31.0) pg MCHC 33.2 (32.0-36.0) g/dL RDW 14.7 (12.0-15.0) % Plt Count 227 (130-450) 10^3/uL MPV 7.5 L (7.9-10.8) fL Neut # (Auto) 10.9 H (1.5-6.6) 10^3/uL Lymph # (Auto) 1.0 L (1.5-3.5) 10^3/uL Sharp # (Auto) 1.4 H (0.0-1.0) 10^3/uL Eos # (Auto) 0.5 (0.0-0.7) 10^3/uL Baso # (Auto) 0.1 (0.0-0.1) 10^3/uL Absolute Nucleated RBC 0.01 x10^3/uL Nucleated RBC % 0.0 /100WBC Sodium 139 (135-145) mmol/L Potassium 3.1 L (3.5-5.0) mmol/L Chloride 100 L (101-111) mmol/L Carbon Dioxide 30 (21-32) mmol/L Anion Gap 9.0 (6-13) BUN 35 H (6-20) mg/dL Creatinine 2.0 H (0.4-1.0) mg/dL Estimated GFR (MDRD) 26 L (>89) Glucose 132 H (70-100) mg/dL Calcium 7.9 L (8.5-10.3) mg/dL Phosphorus 2.9 (2.5-4.6) mg/dL Magnesium 1.6 L (1.7-2.8) mg/dL Total Bilirubin 0.4 (0.2-1.0) mg/dL AST 31 (10-42) IU/L ALT 27 (10-60) IU/L Alkaline Phosphatase 103 (42-121) IU/L Total Protein 6.2 L (6.7-8.2) g/dL Albumin 2.5 L (3.2-5.5) g/dL Globulin 3.7 (2.1-4.2) g/dL Albumin/Globulin Ratio 0.7 L (1.0-2.2) Sepsis Event Note (H) - Evaluation Current Stage of Sepsis: Septic shock Possible source of Sepsis: positive: Genitourinary - Sepsis Criteria Sepsis Criteria: Recorded Heart Rate greater than 90 bpm, Recorded Respiratory Rate greater than 20, Respiratory: Increasing oxygen requirements, WBC count greater than 12,000 or less than 4000, SBP drop more than 40mHg, MAP less than 65 mmHg, Metabolic: lactate > 2 mmol/L Assessment/Plan - Problem List (1) Sepsis due to Escherichia coli Impression: She is a morbidly obese female who presented to the emergency room the third into the road roller engineer hours of March 10 with a main complaint of dizziness for 2 days. She was so dizzy and weak she could not get up. She had slid back to the floor and could not get up. She was somnolent and very sleepy in the emergency room. She did have positive review of systems for UTI. There was also a question of taking more trazodone and tizanidine than prescribed. She was hypotensive, hypothermic, sedated and O2 sat 96% on room air. Once workup was done and hydration began, patient then became hypotensive, bradycardic, met criteria of sepsis. The source is the urine with E coli with the same sensitivities are growing in the urine culture. 03/12 blood culture (done with fever spike) is this far neg at 24 hours. Her WBC is decreasing daily. White cell count started at 29.2. She was 16.2 in March 12. And 14.8 on March 13>13.9 today She was initially on Zosyn, then Zosyn and gentamicin. With worsening creatinine gentamicin stopped and she was put on meropenem and Zosyn. She was also given moxifloxacin 1 dose. She stayed on Zosyn and meropenem until yesterday when cultures were finalized and E. coli is pansensitive. She is now on Rocephin day #3. Blood cultures negative March 11. She will need 14 days of IV antibiotic therapy with discontinuation March 24 after that dose Will ask for placement of a PICC line, since she will need 14 dauys of iv antibiotics due to bacteria in the blood stream. Therefore, she will need nursing care at a SNF for this treatment plan, when she is clinically suitable for DCh, in several days; the Customs Opener Verifier Packer has been informed. Monitor CBC daily. Her metabolic encephalopathy is slowly clearing with her treatment but still not at baseline. (2) Acute respiratory distress with hypercapnea and hypoxia. From fluid overload. Resulted in hypertension and acute respiratory distress yesterday with transfer to ICU and needing BiPAP but she couldn't keep it on. ABG showed PC02 at 48 She responded nicely to lasix and diuresed extensively. (3) CONSTANTIN (acute kidney injury) Assessment/Plan: The creat has stabilized but not reversing down to normal yet. It is likely from ATN due to hypotension (when she was in shock), and nephrotoxins (which have been stopped). Creat 2.7>2.7>2.0 today Continue gentle hydration, and try not to use diuretics if her pulmonary condition can tolerate that. Monitor BMP daily. (4) Bipolar disorder Assessment/Plan: She is back on her antidepressants. She is still confused but improving slowly. Yesterday agitated and was pulling BiPAP mask off. today no mask, able to talk to me but slow to respond, doesn't remember anything. (5) Chronic pain Assessment/Plan: She is on low doses of narcotics and some of her pain meds, as needed. (6) Septic shock Assessment/Plan: Resolved, she is now hypertensive. (7) Hypokalemia Will supplement and recheck in am.
[2018-03-14] MEDS: SODIUM CHLORIDE 0.9% 500 ML IV PRN (16:04)
[2018-03-14] MEDS: SODIUM CHLORIDE FLUSH 0.9% 10 ML SYRINGE IVP PRN ×2 (16:39→17:42)
[2018-03-14] MEDS: HYDROmorphone 2 MG/ML VIAL IVP PRN (17:42)
[2018-03-14] MEDS: ACETAMINOPHEN/CODEINE 300 MG/30 MG TABLET PO PRN (19:27)
[2018-03-14] MEDS: QUEtiapine 25 MG TABLET PO SCH (20:41)
[2018-03-14] MEDS: METOPROLOL TARTRATE 25 MG TABLET PO SCH (22:17)
[2018-03-15] MEDS: NITROGLYCERIN 50 MG/250 ML 50 MG/250 ML BOTTLE IV SCH ×2 (00:07→16:00)
[2018-03-15] MEDS: SODIUM CHLORIDE FLUSH 0.9% 10 ML SYRINGE IVP PRN ×3 (01:39→10:08)
[2018-03-15] MEDS: HYDROmorphone 2 MG/ML VIAL IVP PRN ×4 (01:39→20:35)
[2018-03-15] MEDS: METOPROLOL 5 MG/5 ML VIAL IVP PRN ×4 (05:11→21:37)
[2018-03-15 05:17] LABS: CALCIUM 7.8 mg/dL (8.5-10.3); CREATININE 1.6 mg/dL (0.4-1.0); MAGNESIUM 1.9 mg/dL (1.7-2.8); PHOSPHORUS 3.2 mg/dL (2.5-4.6)
[2018-03-15 05:23] LABS: HGB - HEMOGLOBIN 10.3 g/dL (12.0-16.0); MEAN CORPUSCULAR HEMOGLOBIN 27.5 pg (27.0-31.0); MEAN CORPUSCULAR HGB CONC 32.1 g/dL (32.0-36.0); MEAN CORPUSCULAR VOLUME 85.7 fL (81.0-99.0); MEAN PLATELET VOLUME 7.4 fL (7.9-10.8); RED BLOOD COUNT 3.75 10^6/uL (4.20-5.40); WHITE BLOOD COUNT 13.4 x10^3/uL (4.8-10.8)
[2018-03-15 05:27] LABS: VBG PH 7.372 (7.31-7.41)
[2018-03-15] MEDS: GABAPENTIN 300 MG CAPSULE PO SCH ×3 (06:13→20:23)
[2018-03-15] MEDS: IPRATROPIUM/ALBUTEROL 3 ML NEB INH SCH ×2 (07:08→19:31)
--- NOTE | 2018-03-15 07:41 | PROVIDER PROGRESS NOTE ---
Subjective - Prog Note Date Prog Note Date: 03/15/18 Prog Note Time: 07:39 - Subjective Pt reports feeling: Improved Subjective: She is definitely more awake. She does not like the food. She is annoyed that we are asking her to sit up in bed much less at least stand next to the bed. She feels like she is "sick" and it is too much effort to get up. She hurts all over. Feels like she is been run over by a truck. Really cannot remember what happened in the last few days. She denies chest pain, shortness of breath. Again pain is diffuse with myalgias and arthralgias. No abdominal pain. No urgency frequency dysuria. I spoke to Dr. Henry, her primary care provider. 3 years ago her blood pressure was 112/80, 2 years ago is 168/98. And follow-up a year ago she was 142/90 then 188/122 and then back down to 140/88. So she does have high blood pressure off and on in the office. She just has not been formally diagnosed with it and treated as of yet. She has not been seen in over a year. She was seen for hidradenitis. She is still getting her medications filled with him and her tizanidine was a month and a half ago and her trazodone was last month. Current Medications - Current Medications Current Medications: Active Medications Acetaminophen (Tylenol) 650 mg PO Q4HR PRN PRN Reason: Pain or Fever > 38C (100.4F) Last Admin: 03/13/18 18:14 Dose: 650 mg Acetaminophen/Codeine Phosphate (Tylenol #3) 1 tab PO Q4HR PRN PRN Reason: PAIN Last Admin: 03/14/18 19:27 Dose: 1 tab Albuterol/Ipratropium (Duoneb) 3 ml INH RTBID [facility] Last Admin: 03/15/18 07:08 Dose: 3 ml Amlodipine Besylate (Norvasc) 10 mg PO DAILY [facility] Buspirone HCl (Buspar) 5 mg PO BID [facility] Last Admin: 03/15/18 08:31 Dose: 5 mg Escitalopram Oxalate (Lexapro) 40 mg PO DAILY [facility] Last Admin: 03/15/18 08:30 Dose: 40 mg Famotidine (Pepcid) 20 mg PO BID [facility] Last Admin: 03/15/18 08:33 Dose: 20 mg Gabapentin (Neurontin) 300 mg PO TID [facility] Last Admin: 03/15/18 06:13 Dose: 300 mg Guaifenesin (Mucinex) 600 mg PO BID [facility] Last Admin: 03/15/18 09:53 Dose: Not Given Heparin Sodium (Beef Lung) () 30 - 50 unit IVP PRN PRN PRN Reason: Central Line Protocol (<24 hr) Heparin Sodium (Porcine) () 5,000 unit SUBQ BID [facility] Last Admin: 03/15/18 08:31 Dose: 5,000 unit Hydromorphone HCl (Dilaudid (Vial)) 0.5 mg IVP Q2H PRN PRN Reason: Severe Pain Last Admin: 03/15/18 09:55 Dose: 0.5 mg Nitroglycerin (Nitroglycerin) 50 mg in 250 mls @ 1.5 mls/hr IV .Q72H [facility]; Protocol Last Titration: 03/15/18 12:00 Dose: 40 mcg/min, 12 mls/hr Ceftriaxone Sodium 1 gm/ (Sodium Chloride) 100 mls @ 200 mls/hr IV DAILY [facility] Last Infusion: 03/15/18 09:15 Dose: Infused Sodium Chloride (Normal Saline 0.9%) 500 mls @ 0 mls/hr IV Q24H PRN PRN Reason: TKO RATE Last Infusion: 03/15/18 07:00 Dose: 20 mls/hr Ipratropium [place] (Atrovent) 0.5 mg INH Q6HR PRN PRN Reason: Wheezing Last Admin: 03/11/18 14:40 Dose: 0.5 mg Lorazepam (Ativan Inj (Vial)) 0.5 mg IVP Q4H PRN PRN Reason: Anxiety Last Admin: 03/13/18 23:39 Dose: 0.5 mg Metoprolol Tartrate (Lopressor) 25 mg PO BID [facility] Last Admin: 03/15/18 08:29 Dose: 25 mg Metoprolol Tartrate (Lopressor Inj) 5 mg IVP Q4HR PRN PRN Reason: Blood Pressure Last Admin: 03/15/18 10:06 Dose: 5 mg Mineral Oil (Cavilon) 1 applic TOP PRN PRN PRN Reason: Skin Care Last Admin: 03/13/18 16:37 Dose: 1 applic Ondansetron HCl (Zofran Inj) 4 mg IVP Q6HR PRN PRN Reason: Nausea / Vomiting Last Admin: 03/12/18 17:57 Dose: 4 mg Polyethylene Glycol (Miralax) 17 gm PO DAILY [facility] Last Admin: 03/15/18 08:33 Dose: Not Given Quetiapine Fumarate (Seroquel) 50 mg PO QPM [facility] Last Admin: 03/14/18 20:41 Dose: 50 mg Sodium Chloride (Normal Saline Flush 0.9%) 10 ml IVP 0100,0900,1700 [facility] Last Admin: 03/15/18 09:13 Dose: 10 ml Sodium Chloride (Normal Saline Flush 0.9%) 10 ml IVP PRN PRN PRN Reason: NEEDED PER PROVIDER ORDERS Last Admin: 03/15/18 05:11 Dose: 10 ml Sodium Chloride (Normal Saline Flush 0.9%) 20 ml IVP PRN PRN PRN Reason: After Blood Draw Last Admin: 03/15/18 10:08 Dose: 20 ml Escitalopram [Lexapro] 40 mg PO DAILY 04/01/14 Estrogens, Conjugated [Premarin] 1.25 mg PO DAILY 04/01/14 Gabapentin 300 mg PO TID 11/25/16 busPIRone [Buspar] 5 mg PO BID 03/13/17 Celecoxib 200 mg PO BID 03/10/18 Levothyroxine Sodium 300 mcg PO DAILY 03/10/18 Tizanidine HCl 4 mg PO TID PRN 03/10/18 Trazodone HCl 100 mg PO QPM PRN 03/10/18 Objective - Vital Signs/Intake & Output Reviewed Vital Signs: Yes Vital Signs: Vital Signs Temp Pulse Pulse Resp BP BP BP 03/15/18 07:08 78 20 03/15/18 07:04 76 187 H 186/109 H 03/15/18 06:15 81 171/106 H 03/15/18 06:00 79 03/15/18 05:45 74 157/96 H 157/96 H 03/15/18 05:30 71 156/98 H 03/15/18 05:25 72 163/91 H 03/15/18 05:20 72 167/101 H 03/15/18 05:15 72 166/100 H 03/15/18 05:11 162/109 H 03/15/18 05:00 82 13 175/102 H 03/15/18 04:30 76 161/87 H 03/15/18 04:15 73 164/84 H 03/15/18 04:00 36.5 C 73 14 146/82 H 03/15/18 03:45 71 136/79 H Pulse Ox 03/15/18 07:08 03/15/18 07:04 97 03/15/18 06:15 03/15/18 06:00 03/15/18 05:45 03/15/18 05:30 03/15/18 05:25 03/15/18 05:20 03/15/18 05:15 03/15/18 05:11 03/15/18 05:00 94 03/15/18 04:30 03/15/18 04:15 03/15/18 04:00 93 03/15/18 03:45 Intake & Output: Intake & Output 03/12/18 03/13/18 03/14/18 03/15/18 23:59 23:59 23:59 23:59 Intake Total 2353.75 2404.175 3566.117 845.675 Output Total 4200 8155 2546 730 Balance -1846.25 -5750.825 1020.117 115.675 - Objective General Appearance: positive: No acute distress, Alert, Other (Morbidly obese female, still a little confused about time. She is also very repetitive. Once she gets an answer in her head, she repeats the answer no matter what the question over and over again. Almost with echolalia) Eyes Bilateral: positive: PERRL, EOMI ENT: positive: Pharynx nml Neck: negative: Stiff neck, Carotid bruit Respiratory: positive: Chest non-tender, Wheezes, Other (Really diminished at the bases. Very silent). negative: Rales, Rhonchi Cardiovascular: positive: Regular rate & rhythm. negative: Gallop/S4, Friction rub Abdomen: positive: Other (Huge pannus, intertriginous david changes old and minimally new. No tenderness. Her pannus is too large to figure out if she has organomegaly. Quiet bowel sounds.). negative: Guarding, Rebound Skin: positive: Warm, Dry Extremities: positive: Full ROM, Pedal edema Neurologic/Psychiatric: positive: Oriented x3 (But at times confused. Nursing reports that [place] but unable to name the town she lives in.), CN's nml (2-12), Motor nml, Weakness (Generalized and n onfocal) - Lab Results Fish Bones: 03/15/18 04:30 03/15/18 04:30 Other Labs: Lab Results x24hrs 03/15/18 03/15/18 03/15/18 Range/Units 04:30 04:30 04:30 WBC 13.4 H (4.8-10.8) x10^3/uL RBC 3.75 L (4.20-5.40) 10^6/uL Hgb 10.3 L (12.0-16.0) g/dL Hct 32.1 L (37.0-47.0) % MCV 85.7 (81.0-99.0) fL MCH 27.5 (27.0-31.0) pg MCHC 32.1 (32.0-36.0) g/dL RDW 15.0 (12.0-15.0) % Plt Count 271 (130-450) 10^3/uL MPV 7.4 L (7.9-10.8) fL VBG pH 7.372 (7.31-7.41) Ionized Calcium 1.02 L (1.15-1.33) mmol/L Sodium 137 (135-145) mmol/L Potassium 3.5 (3.5-5.0) mmol/L Chloride 101 (101-111) mmol/L Carbon Dioxide 32 (21-32) mmol/L Anion Gap 4.0 L (6-13) BUN 26 H (6-20) mg/dL Creatinine 1.6 H (0.4-1.0) mg/dL Estimated GFR (MDRD) 33 L (>89) Glucose 110 H (70-100) mg/dL Calcium 7.8 L (8.5-10.3) mg/dL Phosphorus 3.2 (2.5-4.6) mg/dL Magnesium 1.9 (1.7-2.8) mg/dL Sepsis Event Note (H) - Evaluation Current Stage of Sepsis: Septic shock Possible source of Sepsis: positive: Genitourinary - Sepsis Criteria Sepsis Criteria: Recorded Heart Rate greater than 90 bpm, Recorded Respiratory Rate greater than 20, Respiratory: Increasing oxygen requirements, WBC count greater than 12,000 or less than 4000, SBP drop more than 40mHg, MAP less than 65 mmHg, Metabolic: lactate > 2 mmol/L Assessment/Plan - Problem List (1) Sepsis due to Escherichia coli Impression: She is a morbidly obese female who presented to 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 She was so dizzy and weak she could not get up. She had slid back to the floor and could not get up. She was somnolent and very sleepy in the emergency room. She did have positive review of systems for UTI. There was also a question of taking more trazodone and tizanidine than prescribed. She was hypotensive, hypothermic, sedated and O2 sat 96% on room air. Once workup was done and hydration began, patient then became hypotensive, bradycardic, met criteria of sepsis. The source is the urine with E coli with the same sensitivities are growing in the urine culture. 03/12 blood culture (done with fever spike) is this far neg at 24 hours. Her WBC is decreasing daily. White cell count started at 29.2. She was 16.2 in March 12. And 14.8 on March 13>13.9>13.4 today She was initially on Zosyn, then Zosyn and gentamicin. With worsening creatinine gentamicin stopped and she was put on meropenem and Zosyn. She was also given moxifloxacin 1 dose. She stayed on Zosyn and meropenem until 03/12 when culture sensitivity were finalized and E. coli is pansensitive. She is now on Rocephin day #4. Blood cultures negative March 11. She will need 14 days of IV antibiotic therapy with discontinuation March 24 after that dose Will ask for placement of a PICC line which was done 03/12, since she will need 14 dauys of iv antibiotics due to bacteria in the blood stream. Therefore, she will need nursing care at a SNF for this treatment plan, when she is clinically suitable for [facility], in several days; the [employer] has been informed. Monitor CBC daily. Her metabolic encephalopathy is slowly clearing with her treatment but still not at baseline. (2) Acute respiratory distress with hypercapnea and hypoxia. Resolved. From fluid overload, probable acute diatolic heart failure and uncontrolled hypertension. On top of that I believe she has SHOBHA or obesity hypoventilation syndrome. Echocardiogram 03/10 done to make sure she did not have ejection fraction failure had mild concentric left ventricular hypertrophy with normal systolic function, ejection fraction 60%. Mild diastolic dysfunction. Left atrium normal in size. Right ventricle not well seen but appeared grossly normal. Pulmonary pressures could not be done. No significant valvular heart disease. Resulted in severe hypertension and acute respiratory distress 03/13 early am with transfer to ICU and needing BiPAP and IV nitroglycerin to control BP but she couldn't keep it on. ABG showed PC02 at 48 She responded nicely to lasix and diuresed extensively. Still on O2 but no longer in distress. (3) CONSTANTIN (acute kidney injury) Assessment/Plan: The creat has stabilized but not reversing down to normal yet. It is likely from ATN due to hypotension (when she was in shock), and nephrotoxins (which have been stopped). Retroperitoneal US showed mild right hydro Creat 2.7>2.7>2.0>1.6 today. Continue gentle hydration, and try not to use diuretics if her pulmonary con dition can tolerate that. Monitor BMP daily. (4) Bipolar disorder Assessment/Plan: She is back on her antidepressants. She is still confused but improving slowly. 03/13 agitated and was pulling BiPAP mask off. today no mask, able to talk to me but slow to respond, doesn't remember anything. (5) Chronic pain Assessment/Plan: She is on low doses of narcotics and some of her pain meds, as needed.Although she hurts all over, I am not willing to increase her dosage of medication at this time. (6) Septic shock Assessment/Plan: Resolved, she is now hypertensive. (7) Hypokalemia Will supplement and recheck daily (8) Uncontrolled HTN In speaking to her primary care provider this lady may have had blood pressure problems that have not been formally diagnosed. The 188/122 is very similar which she is been doing here. But then she goes back down again when she saw him in follow-up. I will add Norvasc. She is already on a as needed beta- summer. I hope to take her off the nitroglycerin drip.
[2018-03-15] MEDS ORDERED: POTASSIUM CHLORIDE 20 MEQ TABLET PO ONE (08:00)
[2018-03-15] MEDS: METOPROLOL TARTRATE 25 MG TABLET PO SCH ×2 (08:29→20:23)
[2018-03-15] MEDS: ESCITALOPRAM 10 MG TABLET PO SCH (08:30)
[2018-03-15] MEDS: HEPARIN 5,000 UNIT/ML VIAL SUBQ SCH ×2 (08:31→20:23)
[2018-03-15] MEDS: busPIRone 5 MG TABLET PO SCH ×2 (08:31→20:22)
[2018-03-15] MEDS: POLYETHYLENE GLYCOL 3350 17 GM PACKET PO SCH (08:33)
[2018-03-15] MEDS: FAMOTIDINE 20 MG TABLET PO SCH ×2 (08:33→20:22)
[2018-03-15] MEDS: cefTRIAXone 1 GM in SODIUM CHLORIDE 0.9% MINIBAG 100 ML IV SCH (08:40)
[2018-03-15] MEDS: SODIUM CHLORIDE FLUSH 0.9% 10 ML SYRINGE IVP SCH ×3 (09:13→21:38)
[2018-03-15] MEDS: guaiFENesin 600 MG TABLET PO SCH ×2 (09:53→20:23)
[2018-03-15] MEDS: ACETAMINOPHEN/CODEINE 300 MG/30 MG TABLET PO PRN ×2 (13:20→17:48)
[2018-03-15] MEDS: PHENAZOPYRIDINE 100 MG TABLET PO SCH (17:49)
[2018-03-15] MEDS: QUEtiapine 25 MG TABLET PO SCH (20:22)
[2018-03-15] MEDS: SODIUM CHLORIDE 0.9% 500 ML IV PRN (20:24)
[2018-03-16] MEDS: SODIUM CHLORIDE FLUSH 0.9% 10 ML SYRINGE IVP PRN ×6 (03:36→15:50)
[2018-03-16] MEDS: METOPROLOL 5 MG/5 ML VIAL IVP PRN ×3 (03:42→20:10)
[2018-03-16] MEDS: HYDROmorphone 2 MG/ML VIAL IVP PRN ×4 (03:43→19:44)
[2018-03-16 03:53] LABS: HGB - HEMOGLOBIN 10.6 g/dL (12.0-16.0); MEAN CORPUSCULAR HGB CONC 33.2 g/dL (32.0-36.0); MEAN CORPUSCULAR VOLUME 84.4 fL (81.0-99.0); MEAN PLATELET VOLUME 7.1 fL (7.9-10.8); RED BLOOD COUNT 3.79 10^6/uL (4.20-5.40); RED CELL DISTRIBUTION WIDTH 14.8 % (12.0-15.0); WHITE BLOOD COUNT 16.2 x10^3/uL (4.8-10.8)
[2018-03-16 03:56] LABS: VBG PH 7.399 (7.31-7.41)
[2018-03-16 03:59] LABS: CREATININE 1.5 mg/dL (0.4-1.0); MAGNESIUM 1.8 mg/dL (1.7-2.8); PHOSPHORUS 3.3 mg/dL (2.5-4.6)
[2018-03-16] MEDS: GABAPENTIN 300 MG CAPSULE PO SCH ×3 (06:25→21:41)
[2018-03-16] MEDS ORDERED: LEVOTHYROXINE 100 MCG TABLET PO SCH (07:00)
[2018-03-16] MEDS: PHENAZOPYRIDINE 100 MG TABLET PO SCH ×3 (08:04→18:17)
[2018-03-16] MEDS: ACETAMINOPHEN 325 MG TABLET PO PRN (08:04)
[2018-03-16] MEDS ORDERED: amLODIPine 5 MG TABLET PO SCH (09:00)
[2018-03-16 09:05] LABS: THYROID STIMULATING HORMONE < 0.08 uIU/mL (0.34-5.60)
[2018-03-16 09:07] LABS: FREE T4 (FREE THYROXINE) 0.55 ng/dL (0.58-1.64)
[2018-03-16] MEDS: cefTRIAXone 1 GM in SODIUM CHLORIDE 0.9% MINIBAG 100 ML IV SCH (09:41)
[2018-03-16] MEDS: ESCITALOPRAM 10 MG TABLET PO SCH (09:49)
[2018-03-16] MEDS: busPIRone 5 MG TABLET PO SCH ×2 (09:53→21:39)
[2018-03-16] MEDS: METOPROLOL TARTRATE 50 MG TABLET PO SCH ×2 (09:55→21:40)
[2018-03-16] MEDS: FAMOTIDINE 20 MG TABLET PO SCH ×2 (09:56→21:42)
[2018-03-16] MEDS: cloNIDine 0.1 MG TABLET PO SCH ×2 (09:56→21:41)
[2018-03-16] MEDS: guaiFENesin 600 MG TABLET PO SCH ×2 (09:56→21:40)
[2018-03-16] MEDS: POLYETHYLENE GLYCOL 3350 17 GM PACKET PO SCH (09:56)
[2018-03-16] MEDS: HEPARIN 5,000 UNIT/ML VIAL SUBQ SCH ×2 (10:02→21:42)
[2018-03-16] MEDS: IBUPROFEN 600 MG TABLET PO PRN ×2 (11:25→21:39)
[2018-03-16] MEDS: IPRATROPIUM/ALBUTEROL 3 ML NEB INH SCH ×2 (12:25→21:29)
--- NOTE | 2018-03-16 13:56 | PROVIDER PROGRESS NOTE ---
Assessment/Plan - Problem List (1) Acute diastolic heart failure with preserved ejection fraction Assessment/Plan: This resulted from iv hydration for hypotension at admission, then for hydration and nutrition during obtundation and also from severe HTN for the past few days. She then needed iv diuretics and had neg fluid balance for past few days. Continue to monitor I's and O's and adjust fluifds and diuretics. BP control impoortant, meds will be adjusted also. (2) HTN (hypertension) Qualifiers: Hypertension type: essential hypertension Qualified Code(s): I10 - Essential (primary) hypertension Assessment/Plan: Will add Clonidone 0.1 mg po bid and increase B-summer, since resting HR in 80's and continue Norvasc, to be able to titrate iv Nitro to off slowly today. (3) Sepsis due to Escherichia coli Assessment/Plan: She was initially on Zosyn, then Zosyn and gentamicin. With worsening creatinine gentamicin stopped and she was put on meropenem and Zosyn. She was also given moxifloxacin 1 dose. She stayed on Zosyn and meropenem until 03/12 when culture sensitivity were finalized and E. coli is pansensitive. She is now on Rocephin day #4. Blood cultures negative March 11. She will need 14 days of IV antibiotic therapy with discontinuation March 24 after that dose Will ask for placement of a PICC line which was done 03/12, since she will need 14 dauys of iv antibiotics due to bacteria in the blood stream. Therefore, she will need nursing care at a SNF for this treatment plan, when she is clinically suitable for [facility], in several days; the [employer] has been informed by Dr Johnson. (4) CONSTANTIN (acute kidney injury) Assessment/Plan: It is likely from ATN due to hypotension (when she was in shock), and nephrotoxins (which have been stopped). Slow recovery of creatinine with iv hydration since admission. Continue to follow BMP daily and avoid nephrotoxins. (5) Bipolar disorder Assessment/Plan: Pt on her meds (6) Chronic pain Assessment/Plan: If her pain ("cramping muscles") is uncontrolled, this may be adding to uncontrolled HTN. Will add Motrin po, also on Tylenol po and iv Dilaudid prn. Will check Ca, Mg, K and PO4 and replace if low, which could cause crampy muscles. Add a multivitamin po daily. (7) Septic shock Assessment/Plan: Resolved - Current Meds Current Meds: Current Medications Generic Name Dose Route Start Last Admin Trade Name Freq PRN Reason Stop Dose Admin Acetaminophen 650 mg 03/10/18 07:55 03/16/18 08:04 Tylenol PO 650 mg Q4HR PRN Administration Pain or Fever > 38C (100.4F) Acetaminophen/Codeine Phosphate 1 tab 03/10/18 10:34 03/15/18 17:48 Tylenol #3 PO 1 tab Q4HR PRN Administration PAIN Albuterol/Ipratropium 3 ml 03/10/18 07:00 03/16/18 12:25 Duoneb INH 3 ml RTBID SILVERIO Administration Amlodipine Besylate 10 mg 03/16/18 09:00 03/16/18 09:55 Norvasc PO 10 mg DAILY SILVERIO Administration Buspirone HCl 5 mg 03/11/18 21:00 03/16/18 09:53 Buspar PO 5 mg BID SILVERIO Administration Clonidine HCl 0.1 mg 03/16/18 09:00 03/16/18 09:56 Catapres PO 0.1 mg BID SILVERIO Administration Escitalopram Oxalate 40 mg 03/12/18 09:00 03/16/18 09:49 Lexapro PO 40 mg DAILY SILVERIO Administration Famotidine 20 mg 03/11/18 21:00 03/16/18 09:56 Pepcid PO 20 mg BID SILVERIO Administration Gabapentin 300 mg 03/11/18 22:00 03/16/18 13:49 Neurontin PO 300 mg TID SILVERIO Administration Guaifenesin 600 mg 03/10/18 09:00 03/16/18 09:56 Mucinex PO 600 mg BID SILVERIO Administration Heparin Sodium (Porcine) 5,000 unit 03/10/18 09:00 03/16/18 10:02 SUBQ 5,000 unit BID SILVERIO Administration Hydromorphone HCl 0.5 mg 03/10/18 16:50 03/16/18 13:43 Dilaudid (Vial) IVP 0.5 mg Q2H PRN Administration Severe Pain Nitroglycerin 50 mg in 250 mls @ 1.5 mls/hr 03/12/18 21:00 03/16/18 13:48 Nitroglycerin IV 10 mcg/min .Q72H SILVERIO 3 mls/hr Titration Protocol 5 MCG/MIN Ceftriaxone Sodium 1 gm/ 100 mls @ 200 mls/hr 03/13/18 09:00 03/16/18 10:11 Sodium Chloride IV Infused DAILY SILVERIO Infusion Sodium Chloride 500 mls @ 0 mls/hr 03/13/18 11:25 03/16/18 13:00 Normal Saline 0.9% IV 20 mls/hr Q24H PRN Infusion TKO RATE TKO Ibuprofen 600 mg 03/16/18 10:18 03/16/18 11:25 Motrin PO 600 mg Q6HR PRN Administration PAIN Ipratropium [place] 0.5 mg 03/10/18 01:11 03/11/18 14:40 Atrovent INH 0.5 mg Q6HR PRN Administration Wheezing Lorazepam 0.5 mg 03/12/18 13:28 03/13/18 23:39 Ativan Inj (Vial) IVP 0.5 mg Q4H PRN Administration Anxiety Metoprolol Tartrate 5 mg 03/14/18 21:48 03/16/18 11:40 Lopressor Inj IVP 5 mg Q4HR PRN Administration Blood Pressure Metoprolol Tartrate 50 mg 03/16/18 09:00 03/16/18 09:55 Lopressor PO 50 mg BID SILVERIO Administration Mineral Oil 1 applic 03/12/18 19:54 03/13/18 16:37 Cavilon TOP 1 applic PRN PRN Administration Skin Care Ondansetron HCl 4 mg 03/10/18 01:11 03/12/18 17:57 Zofran Inj IVP 4 mg Q6HR PRN Administration Nausea / Vomiting Phenazopyridine HCl 100 mg 03/15/18 18:00 03/16/18 11:26 Pyridium PO 100 mg TIDWM SILVERIO Administration Polyethylene Glycol 17 gm 03/12/18 09:00 03/16/18 09:56 Miralax PO 17 gm DAILY SILVERIO Administration Quetiapine Fumarate 50 mg 03/14/18 21:00 03/15/18 20:22 Seroquel PO 50 mg QPM SILVERIO Administration Sodium Chloride 10 ml 03/10/18 09:00 03/15/18 21:38 Normal Saline Flush 0.9% IVP 10 ml 0100,0900,1700 SILVERIO Administration Sodium Chloride 10 ml 03/10/18 01:06 03/16/18 13:44 Normal Saline Flush 0.9% IVP 10 ml PRN PRN Administration NEEDED PER PROVIDER ORDERS Sodium Chloride 20 ml 03/11/18 02:23 03/16/18 03:36 Normal Saline Flush 0.9% IVP 20 ml PRN PRN Administration After Blood Draw - Lab Result Fish Bone Diagrams: 03/16/18 03:30 03/16/18 03:30 - Additional Planning My Orders: My Active Orders 03/16/18 Wound Consult MAC [MAC] Routine 03/16/18 08:17 Miscellaenous Nursing Order [RC] QSHIFT 03/16/18 09:00 Metoprolol Tartrate [Lopressor] 50 mg PO BID cloNIDine [Catapres] 0.1 mg PO BID 03/16/18 10:18 Ibuprofen [Motrin] 600 mg PO Q6HR PRN 03/16/18 14:00 Nystatin Cream [Mycostatin Cream] 1 applic TOP BID 03/16/18 Lunch DIET [Low Sodium Diet] [DIET] 03/17/18 07:00 Levothyroxine [Synthroid] 150 mcg PO QDAC Subjective - Subjective Patient Reports: Feeling Better, Other (Awake, has cramping in all muscles, rate 8-9/10) Nursing Reports: Other (Rash on cheeks, rash on buttocks, rash in inguinal area) Objective Vital Signs: Vital Signs - 24 hr 03/15/18 03/15/18 03/15/18 14:00 15:00 15:52 Temperature Heart Rate Heart Rate [ 81 75 Monitoring electrodes] Respiratory 17 14 Rate Blood Pressure 165/105 H Blood Pressure 158/102 H 173/101 H [Left Radial artery] Blood Pressure [Right Radial artery] O2 Saturation 96 95 03/15/18 03/15/18 03/15/18 16:00 16:22 17:00 Temperature Heart Rate Heart Rate [ 74 82 Monitoring electrodes] Respiratory 15 18 Rate Blood Pressure 195/133 H Blood Pressure 200/101 H 189/112 H [Left Radial artery] Blood Pressure [Right Radial artery] O2 Saturation 95 96 03/15/18 03/15/18 03/15/18 18:00 19:00 19:32 Temperature 37.2 C Heart Rate 80 Heart Rate [ 82 90 Monitoring electrodes] Respiratory 17 17 16 Rate Blood Pressure Blood Pressure 178/94 H 176/97 H [Left Radial artery] Blood Pressure [Right Radial artery] O2 Saturation 96 95 03/15/18 03/15/18 03/15/18 20:00 20:23 20:45 Temperature Heart Rate Heart Rate [ 86 86 Monitoring electrodes] Respiratory 13 Rate Blood Pressure 177/92 H Blood Pressure 177/92 H 171/99 H [Left Radial artery] Blood Pressure [Right Radial artery] O2 Saturation 03/15/18 03/15/18 03/15/18 21:00 21:37 21:40 Temperature Heart Rate Heart Rate [ 83 80 Monitoring electrodes] Respiratory 14 Rate Blood Pressure 202/110 H Blood Pressure 189/103 H 176/104 H [Left Radial artery] Blood Pressure [Right Radial artery] O2 Saturation 96 03/15/18 03/15/18 03/15/18 21:45 21:50 21:55 Temperature Heart Rate Heart Rate [ 81 81 84 Monitoring electrodes] Respiratory Rate Blood Pressure Blood Pressure 182/99 H 163/93 H 170/100 H [Left Radial artery] Blood Pressure [Right Radial artery] O2 Saturation 03/15/18 03/15/18 03/15/18 22:00 22:15 22:30 Temperature Heart Rate Heart Rate [ 84 79 78 Monitoring electrodes] Respiratory 20 Rate Blood Pressure 155/101 H Blood Pressure 155/101 H 155/99 H 146/87 H [Left Radial artery] Blood Pressure [Right Radial artery] O2 Saturation 96 03/15/18 03/15/18 03/15/18 22:45 23:00 23:30 Temperature Heart Rate Heart Rate [ 77 75 74 Monitoring electrodes] Respiratory 13 Rate Blood Pressure Blood Pressure 142/95 H 124/86 H 152/90 H [Left Radial artery] Blood Pressure [Right Radial artery] O2 Saturation 94 03/15/18 03/16/18 03/16/18 23:45 00:00 00:15 Temperature 36.6 C Heart Rate Heart Rate [ 75 76 75 Monitoring electrodes] Respiratory 15 Rate Blood Pressure Blood Pressure 150/85 H 128/83 H 129/79 [Left Radial artery] Blood Pressure [Right Radial artery] O2 Saturation 94 03/16/18 03/16/18 03/16/18 00:30 00:55 01:00 Temperature Heart Rate Heart Rate [ 73 76 Monitoring electrodes] Respiratory 13 18 Rate Blood Pressure Blood Pressure 134/84 H 153/93 H [Left Radial artery] Blood Pressure [Right Radial artery] O2 Saturation 97 98 03/16/18 03/16/18 03/16/18 02:00 02:45 03:00 Temperature 37.7 C H Heart Rate Heart Rate [ 74 77 80 Monitoring electrodes] Respiratory 14 16 Rate Blood Pressure Blood Pressure 160/102 H 148/83 H 178/105 H [Left Radial artery] Blood Pressure [Right Radial artery] O2 Saturation 97 97 03/16/18 03/16/18 03/16/18 03:42 03:45 03:50 Temperature Heart Rate Heart Rate [ 76 76 Monitoring electrodes] Respiratory Rate Blood Pressure 191/112 H Blood Pressure 185/106 H 178/107 H [Left Radial artery] Blood Pressure [Right Radial artery] O2 Saturation 03/16/18 03/16/18 03/16/18 03:55 04:00 04:15 Temperature Heart Rate Heart Rate [ 77 78 80 Monitoring electrodes] Respiratory 14 Rate Blood Pressure 154/96 H Blood Pressure 192/108 H 191/102 H 154/96 H [Left Radial artery] Blood Pressure [Right Radial artery] O2 Saturation 96 03/16/18 03/16/18 03/16/18 05:00 05:15 06:00 Temperature Heart Rate Heart Rate [ 80 79 81 Monitoring electrodes] Respiratory 17 14 Rate Blood Pressure Blood Pressure 188/103 H 150/97 H 169/100 H [Left Radial artery] Blood Pressure [Right Radial artery] O2 Saturation 96 96 03/16/18 03/16/18 03/16/18 06:30 07:00 07:43 Temperature Heart Rate Heart Rate [ 82 80 80 Monitoring electrodes] Respiratory 15 15 Rate Blood Pressure Blood Pressure 149/89 H 177/102 H 183/101 H [Left Radial artery] Blood Pressure [Right Radial artery] O2 Saturation 96 96 03/16/18 03/16/18 03/16/18 07:56 09:00 09:41 Temperature 37.5 C Heart Rate Heart Rate [ 79 Monitoring electrodes] Respiratory 17 16 Rate Blood Pressure Blood Pressure [Left Radial artery] Blood Pressure 143/81 H [Right Radial artery] O2 Saturation 90 L 91 L 03/16/18 03/16/18 03/16/18 09:55 10:00 11:00 Temperature Heart Rate Heart Rate [ 79 73 Monitoring electrodes] Respiratory 15 15 Rate Blood Pressure 148/84 H Blood Pressure [Left Radial artery] Blood Pressure 178/97 H 174/93 H [Right Radial artery] O2 Saturation 96 96 03/16/18 03/16/18 03/16/18 11:28 11:40 12:00 Temperature 37 C Heart Rate Heart Rate [ 74 84 Monitoring electrodes] Respiratory 14 18 Rate Blood Pressure 203/107 H Blood Pressure [Left Radial artery] Blood Pressure 203/107 H 173/99 H [Right Radial artery] O2 Saturation 95 2 L 03/16/18 03/16/18 03/16/18 12:10 12:25 13:00 Temperature Heart Rate 83 Heart Rate [ 70 Monitoring electrodes] Respiratory 16 15 Rate Blood Pressure 124/80 Blood Pressure [Left Radial artery] Blood Pressure 124/80 [Right Radial artery] O2 Saturation 96 Oxygen O2 Source Nasal cannula I&O (Last 24 Hrs): Intake and Output Totals x24h 03/14/18 03/15/18 03/16/18 23:59 23:59 23:59 Intake Total 3566.117 2529.983 2167.375 Output Total 2546 2855 745 Balance 1020.117 -811.635 3910.375 General: Alert, Oriented x3 HEENT: Mucous membr. moist/pink, Other (Red macules on cheeks) Neck: Supple, Other (Obese) Neuro: Alert Cardiovascular: Regular rate, Other (Distant heart sounds) Abdomen: Soft, Other (Obese) Extremities: No edema - Results Results: Laboratory Results WBC 16.2 x10^3/uL (4.8-10.8) H 03/16/18 03:30 RBC 3.79 10^6/uL (4.20-5.40) L 03/16/18 03:30 Hgb 10.6 g/dL (12.0-16.0) L 03/16/18 03:30 Hct 32.0 % (37.0-47.0) L 03/16/18 03:30 MCV 84.4 fL (81.0-99.0) 03/16/18 03:30 MCH 28.0 pg (27.0-31.0) 03/16/18 03:30 MCHC 33.2 g/dL (32.0-36.0) 03/16/18 03:30 RDW 14.8 % (12.0-15.0) 03/16/18 03:30 Plt Count 337 10^3/uL (130-450) 03/16/18 03:30 MPV 7.1 fL (7.9-10.8) L 03/16/18 03:30 Neut # (Auto) 10.9 10^3/uL (1.5-6.6) H 03/14/18 04:20 Lymph # (Auto) 1.0 10^3/uL (1.5-3.5) L 03/14/18 04:20 Mills # (Auto) 1.4 10^3/uL (0.0-1.0) H 03/14/18 04:20 Eos # (Auto) 0.5 10^3/uL (0.0-0.7) 03/14/18 04:20 Baso # (Auto) 0.1 10^3/uL (0.0-0.1) 03/14/18 04:20 Absolute Nucleated RBC 0.01 x10^3/uL 03/14/18 04:20 Total Counted 100 03/11/18 02:50 Band Neuts % (Manual) 16 % (0-10) H 03/11/18 02:50 Abnorm Lymph % (Manual) 0 % 03/11/18 02:50 Metamyelocytes % 4 % (-0) H 03/09/18 22:15 Nucleated RBC % 0.0 /100WBC 03/14/18 04:20 Neutrophils # (Manual) 16.7 10^3/uL (1.5-6.6) H 03/11/18 02:50 Lymphocytes # (Manual) 2.0 10^3/uL (1.5-3.5) 03/11/18 02:50 Monocytes # (Manual) 1.2 10^3/uL (0.0-1.0) H 03/11/18 02:50 Eosinophils # (Manual) 0.2 10^3/uL (0-0.7) 03/11/18 02:50 Basophils # (Manual) 0.0 10^3/uL (0-0.1) 03/11/18 02:50 Differential Comment MANUAL DIFFERENTIAL 03/11/18 02:50 Manual Slide Review Indicated 03/09/18 22:15 Platelet Estimate NORMAL (130-450,000) (NORMAL) 03/11/18 02:50 Platelet Morphology NORMAL APPEARANCE (NORMAL) 03/09/18 22:15 RBC Morph Micro Appear NORMAL APPEARANCE (NORMAL) 03/11/18 02:50 Bld Gas Analysis Time 1120 03/13/18 11:20 Sample Site RIGHT RADIAL 03/13/18 11:20 ABG pH 7.39 (7.35-7.45) 03/13/18 11:20 ABG pCO2 47 mmHg (34-45) H 03/13/18 11:20 ABG pO2 74 mmHg (80-100) L 03/13/18 11:20 ABG HCO3 27.9 mmol/L (22.0-26.0) H 03/13/18 11:20 ABG Total CO2 29.3 MMOL/L (21.0-29.0) H 03/13/18 11:20 ABG O2 Saturation 95 % (94-98) 03/13/18 11:20 ABG Base Excess 2.4 mmol/L (-2.0-3.0) 03/13/18 11:20 Amarjit Test POSITIVE 03/13/18 11:20 VBG pH 7.399 (7.31-7.41) 03/16/18 03:30 Ionized Calcium 1.05 mmol/L (1.15-1.33) L 03/16/18 03:30 Respiration Rate 22 b/min 03/13/18 11:20 O2 Delivery Device BiPAP 03/13/18 11:20 O2 Liters/Min 45.00 LPM 03/12/18 21:30 Vent Mode SYNCHRONOUS/TIMES 03/13/18 11:20 FiO2 0.28 03/13/18 11:20 Tidal Volume 480 mL 03/12/18 21:30 PEEP 7 cmH2O 03/13/18 11:20 Pressure Support Vent 7 cmH2O 03/12/18 21:30 EPAP 5 cmH2O 03/13/18 11:20 IPAP 12 cmH2O 03/13/18 11:20 Sodium 140 mmol/L (135-145) 03/16/18 03:30 Potassium 3.9 mmol/L (3.5-5.0) 03/16/18 03:30 Chloride 100 mmol/L (101-111) L 03/16/18 03:30 Carbon Dioxide 30 mmol/L (21-32) 03/16/18 03:30 Anion Gap 10.0 (6-13) 03/16/18 03:30 BUN 23 mg/dL (6-20) H 03/16/18 03:30 Creatinine 1.5 mg/dL (0.4-1.0) H 03/16/18 03:30 Estimated GFR (MDRD) 36 (>89) L 03/16/18 03:30 Glucose 107 mg/dL (70-100) H 03/16/18 03:30 Lactic Acid 1.3 mmol/L (0.5-2.2) 03/12/18 20:35 Calcium 8.0 mg/dL (8.5-10.3) L 03/16/18 03:30 Phosphorus 3.3 mg/dL (2.5-4.6) 03/16/18 03:30 Magnesium 1.8 mg/dL (1.7-2.8) 03/16/18 03:30 Total Bilirubin 0.4 mg/dL (0.2-1.0) 03/14/18 04:20 AST 31 IU/L (10-42) 03/14/18 04:20 ALT 27 IU/L (10-60) 03/14/18 04:20 Alkaline Phosphatase 103 IU/L (42-121) 03/14/18 04:20 Total Creatine Kinase 54 IU/L (22-269) 03/09/18 22:15 Troponin I 0.05 ng/mL (<0.49) 03/12/18 20:48 B-Natriuretic Peptide 148 pg/mL (5-100) H 03/09/18 22:15 Total Protein 6.2 g/dL (6.7-8.2) L 03/14/18 04:20 Albumin 2.6 g/dL (3.2-5.5) L 03/16/18 03:43 Globulin 3.7 g/dL (2.1-4.2) 03/14/18 04:20 Albumin/Globulin Ratio 0.7 (1.0-2.2) L 03/14/18 04:20 Lipase 15 U/L (22-51) L 03/09/18 22:15 TSH < 0.08 uIU/mL (0.34-5.60) L 03/16/18 03:30 Free T4 0.55 ng/dL (0.58-1.64) L 03/16/18 03:30 Urine Color YELLOW 03/10/18 01:05 Urine Clarity CLOUDY (CLEAR) 03/10/18 01:05 Urine pH 6.0 PH (5.0-7.5) 03/10/18 01:05 Ur Specific [place] 1.025 (1.002-1.030) 03/10/18 01:05 Urine Protein 100 mg/dL (NEGATIVE) H 03/10/18 01:05 Urine Glucose (UA) NEGATIVE mg/dL (NEGATIVE) 03/10/18 01:05 Urine Ketones NEGATIVE mg/dL (NEGATIVE) 03/10/18 01:05 Urine Occult Blood MODERATE (NEGATIVE) H 03/10/18 01:05 Urine Nitrite NEGATIVE (NEGATIVE) 03/10/18 01:05 Urine Bilirubin NEGATIVE (NEGATIVE) 03/10/18 01:05 Urine Urobilinogen 0.2 (NORMAL) E.U./dL (NORMAL) 03/10/18 01:05 Ur Leukocyte Esterase LARGE (NEGATIVE) H 03/10/18 01:05 Urine RBC 11-25 /HPF (0-5) H 03/10/18 01:05 Urine WBC >25 /HPF (0-5) H 03/10/18 01:05 Ur Squamous Epith Cells FEW Squamous (<= Few) 03/10/18 01:05 Urine Bacteria Many /HPF (None Seen) H 03/10/18 01:05 Ur Microscopic Review INDICATED 03/10/18 01:05 Urine Culture Comments INDICATED 03/10/18 01:05 Last Dose Date 03/10/18 03/11/18 02:50 Last Dose Time 1400 03/11/18 02:50 Random Gentamicin 18.8 ug/mL H* 03/11/18 02:50 Salicylates < 6.0 mg/dL 03/09/18 22:15 Urine Opiates Screen POSITIVE (NEGATIVE) H 03/10/18 01:05 Ur Oxycodone Screen NEGATIVE (NEGATIVE) 03/10/18 01:05 Urine Methadone Screen NEGATIVE (NEGATIVE) 03/10/18 01:05 Ur Propoxyphene Screen NEGATIVE (NEGATIVE) 03/10/18 01:05 Acetaminophen < 10 ug/mL (10-30) L 03/09/18 22:15 Ur Barbiturates Screen NEGATIVE (NEGATIVE) 03/10/18 01:05 Ur Tricyclics Screen NEGATIVE (NEGATIVE) 03/10/18 01:05 Ur Phencyclidine Scrn NEGATIVE (NEGATIVE) 03/10/18 01:05 Ur Amphetamine Screen NEGATIVE (NEGATIVE) 03/10/18 01:05 U Methamphetamines Scrn NEGATIVE (NEGATIVE) 03/10/18 01:05 U Benzodiazepines Scrn NEGATIVE (NEGATIVE) 03/10/18 01:05 Urine Cocaine Screen NEGATIVE (NEGATIVE) 03/10/18 01:05 U Cannabinoids Screen NEGATIVE (NEGATIVE) 03/10/18 01:05 Ethyl Alcohol < 5.0 mg/dL 03/09/18 22:15 Influenza A (Rapid) Negative (Negative) 03/12/18 01:20 Influenza B (Rapid) Negative (Negative) 03/12/18 01:20 Sepsis Event Note (H) - Evaluation Current Stage of Sepsis: Septic shock Possible source of Sepsis: positive: Genitourinary - Sepsis Criteria Sepsis Criteria: Recorded Heart Rate greater than 90 bpm, Recorded Respiratory Rate greater than 20, Respiratory: Increasing oxygen requirements, WBC count greater than 12,000 or less than 4000, SBP drop more than 40mHg, MAP less than 65 mmHg, Metabolic: lactate > 2 mmol/L
--- NOTE | 2018-03-16 14:07 | XRAY Report ---
Reason: Possible PICC line displacement Procedure Date: 03/16/2018 Accession Number: [id number] / [id number] Procedure: XR - Chest for Line Placement CPT Code: FULL RESULT: EXAM: CHEST RADIOGRAPHY EXAM DATE: 03/16/2018 01:31 PM. CLINICAL HISTORY: Possible PICC line displacement. Line pulled by patient. COMPARISON: CHEST 1 VIEW 03/12/2018 1:00 PM. TECHNIQUE: Semi-upright AP view. FINDINGS: The study is mildly underpenetrated. The projection is mildly lordotic. Lungs/Pleura: Lung volumes are low. There is minimal left basilar airspace opacity decreased from before suggesting atelectasis. Right lung with minimal medial basilar opacity suggesting atelectasis, decreased from before. No new airspace opacities. No interstitial abnormality. No gross pneumothorax or gross pleural fluid. Mediastinum: Within exam limitations, the cardiomediastinal contour is normal. Other: New right upper extremity PICC extending to the right subclavian vein. IMPRESSION: Right upper extremity PICC extending to the right subclavian vein. RADIA
--- NOTE | 2018-03-16 16:11 | ANESTHESIA PROCEDURE NOTE ---
Anesth Central Line Template - Central Line Other Info/Details: Called to assess PICC line. Line pulled back 4-5cm from ideal placement. Chest xray shows line in right subclavian. Attempted to exchange catheter, however, I was unable to get the catheter to advance toward SVC. Effort was aborted and the patient's left arm was prepped for a new placement. Multiple attempts were made at accessing the basilic and brachial veins without success. Patient request attempts stop. A #20 G peripheral IV was started to left wrist x1 attempt. Will re-attempt PICC line placement on Monday.
[2018-03-16] MEDS: MULTIVITAMIN W/MINERALS TABLET PO SCH (16:42)
[2018-03-16] MEDS: NYSTATIN CREAM 15 GM TUBE TOP SCH ×2 (16:44→18:00)
[2018-03-16] MEDS: SODIUM CHLORIDE FLUSH 0.9% 10 ML SYRINGE IVP SCH ×2 (18:17→21:43)
[2018-03-16] MEDS ORDERED: hydrALAZINE 10 MG TABLET PO SCH (21:00)
[2018-03-16] MEDS: QUEtiapine 25 MG TABLET PO SCH (21:39)
[2018-03-16] MEDS: BETAMETHASONE AUG 0.05% CREAM 15 GM TUBE TOP SCH (21:42)
[2018-03-17 05:33] LABS: HGB - HEMOGLOBIN 11.2 g/dL (12.0-16.0); MEAN CORPUSCULAR HEMOGLOBIN 27.4 pg (27.0-31.0); MEAN CORPUSCULAR HGB CONC 32.1 g/dL (32.0-36.0); MEAN CORPUSCULAR VOLUME 85.3 fL (81.0-99.0); MEAN PLATELET VOLUME 6.7 fL (7.9-10.8); RED BLOOD COUNT 4.1 10^6/uL (4.20-5.40); RED CELL DISTRIBUTION WIDTH 14.9 % (12.0-15.0); VBG PH 7.499 (7.31-7.41); WHITE BLOOD COUNT 16.8 x10^3/uL (4.8-10.8)
[2018-03-17 05:43] LABS: CALCIUM 8.6 mg/dL (8.5-10.3); CREATININE 1.3 mg/dL (0.4-1.0); MAGNESIUM 1.8 mg/dL (1.7-2.8); PHOSPHORUS 3.3 mg/dL (2.5-4.6)
[2018-03-17] MEDS: METOPROLOL 5 MG/5 ML VIAL IVP PRN (06:32)
[2018-03-17] MEDS: GABAPENTIN 300 MG CAPSULE PO SCH ×3 (06:33→21:20)
[2018-03-17] MEDS ORDERED: LEVOTHYROXINE 75 MCG TABLET PO SCH (07:00)
[2018-03-17] MEDS: IPRATROPIUM/ALBUTEROL 3 ML NEB INH SCH ×2 (07:36→20:45)
--- NOTE | 2018-03-17 08:05 | PROVIDER PROGRESS NOTE ---
Assessment/Plan - Problem List (1) Sepsis due to Escherichia coli Assessment/Plan: Continue antibiotic for a 14 day course. A PICC line has been ordered to be placed. (2) HTN (hypertension) Qualifiers: Hypertension type: essential hypertension Qualified Code(s): I10 - Essential (primary) hypertension Assessment/Plan: The Ceftriaxone has a high salt load and may be the cause of her HTN. She will need a 14 day course via PICC line, therefore will adjust her BP meds, not the antibiotic. Clonidine had little effect, Hydralazine po was tried last night and BP was down from 200's to 150's systolic. Will continue Hydralazine at 25 mg po qid, in addition to her Norvasc 10 mg daily, and will change the Metoprolol Tartrate to Succinate for prolonged effect. Will transition to a MedSurg bed today, if she has better BP control. (3) Acute diastolic heart failure with preserved ejection fraction Assessment/Plan: Will stop the iv saline today, to avoid need for diuretics, since she is eating and drinking now. (4) CONSTANTIN (acute kidney injury) Assessment/Plan: She continues to have improved creat daily. Will stop the iv saline infusion today. Hydralazine was chosen for BP control due to her CONSTANTIN. (5) Bipolar disorder Assessment/Plan: Continue anti-depressants. (6) Chronic pain Assessment/Plan: Flexeril was started last night, since she uses Tinazidine muscle relaxants at home for her pain. Better pain control may also help with BP control. Will stop Dilaudid, to avoid habituation and decrease somnolence. Will start PT later today and more OOB to chair. (7) Heat rash Assessment/Plan: Pt was seen by [facility], and her impression was that pt has a heat rash. Topical treatment ordered. - Current Meds Current Meds: Current Medications Generic Name Dose Route Start Last Admin Trade Name Freq PRN Reason Stop Dose Admin Acetaminophen 650 mg 03/10/18 07:55 03/16/18 08:04 Tylenol PO 650 mg Q4HR PRN Administration Pain or Fever > 38C (100.4F) Acetaminophen/Codeine Phosphate 1 tab 03/10/18 10:34 03/15/18 17:48 Tylenol #3 PO 1 tab Q4HR PRN Administration PAIN Albuterol/Ipratropium 3 ml 03/10/18 07:00 03/17/18 07:36 Duoneb INH 3 ml RTBID SILVERIO Administration Betamethasone Dipropion Augmented 1 applic 03/16/18 21:00 03/16/18 21:42 Diprolene Af 0.05% Cream TOP 1 applic BID SILVERIO Administration Buspirone HCl 5 mg 03/11/18 21:00 03/16/18 21:39 Buspar PO 5 mg BID SILVERIO Administration Escitalopram Oxalate 40 mg 03/12/18 09:00 03/16/18 09:49 Lexapro PO 40 mg DAILY SILVERIO Administration Famotidine 20 mg 03/11/18 21:00 03/16/18 21:42 Pepcid PO 20 mg BID SILVERIO Administration Gabapentin 300 mg 03/11/18 22:00 03/17/18 06:33 Neurontin PO 300 mg TID SILVERIO Administration Guaifenesin 600 mg 03/10/18 09:00 03/16/18 21:40 Mucinex PO 600 mg BID SILVERIO Administration Heparin Sodium (Porcine) 5,000 unit 03/10/18 09:00 03/16/18 21:42 SUBQ 5,000 unit BID SILVERIO Administration Hydromorphone HCl 0.5 mg 03/10/18 16:50 03/16/18 19:44 Dilaudid (Vial) IVP 0.5 mg Q2H PRN Administration Severe Pain Ceftriaxone Sodium 1 gm/ 100 mls @ 200 mls/hr 03/13/18 09:00 03/16/18 10:11 Sodium Chloride IV Infused DAILY SILVERIO Infusion Ibuprofen 600 mg 03/16/18 10:18 03/16/18 21:39 Motrin PO 600 mg Q6HR PRN Administration PAIN Ipratropium [place] 0.5 mg 03/10/18 01:11 03/11/18 14:40 Atrovent INH 0.5 mg Q6HR PRN Administration Wheezing Lorazepam 0.5 mg 03/12/18 13:28 03/13/18 23:39 Ativan Inj (Vial) IVP 0.5 mg Q4H PRN Administration Anxiety Metoprolol Tartrate 5 mg 03/14/18 21:48 03/17/18 06:32 Lopressor Inj IVP 5 mg Q4HR PRN Administration Blood Pressure Mineral Oil 1 applic 03/12/18 19:54 03/13/18 16:37 Cavilon TOP 1 applic PRN PRN Administration Skin Care Multivitamins/Minerals 1 tab 03/16/18 14:00 03/16/18 16:42 Theragran M PO 1 tab DAILYWM SILVERIO Administration Nystatin 1 applic 03/16/18 14:00 03/16/18 18:00 Mycostatin Cream TOP 1 applic BID SILVERIO Administration Ondansetron HCl 4 mg 03/10/18 01:11 03/12/18 17:57 Zofran Inj IVP 4 mg Q6HR PRN Administration Nausea / Vomiting Phenazopyridine HCl 100 mg 03/15/18 18:00 03/16/18 18:17 Pyridium PO 100 mg TIDWM SILVERIO Administration Polyethylene Glycol 17 gm 03/12/18 09:00 03/16/18 09:56 Miralax PO 17 gm DAILY SILVERIO Administration Quetiapine Fumarate 50 mg 03/14/18 21:00 03/16/18 21:39 Seroquel PO 50 mg QPM SILVERIO Administration Sodium Chloride 10 ml 03/10/18 09:00 03/16/18 21:43 Normal Saline Flush 0.9% IVP 10 ml 0100,0900,1700 SILVERIO Administration Sodium Chloride 10 ml 03/10/18 01:06 03/16/18 15:50 Normal Saline Flush 0.9% IVP 10 ml PRN PRN Administration NEEDED PER PROVIDER ORDERS Sodium Chloride 20 ml 03/11/18 02:23 03/16/18 03:36 Normal Saline Flush 0.9% IVP 20 ml PRN PRN Administration After Blood Draw - Lab Result Fish Bone Diagrams: 03/17/18 05:10 03/17/18 05:10 - Additional Planning My Orders: My Active Orders 03/16/18 08:17 Miscellaenous Nursing Order [RC] QSHIFT 03/16/18 10:18 Ibuprofen [Motrin] 600 mg PO Q6HR PRN 03/16/18 14:00 Multivitamin W/Minerals [Theragran M] 1 tab PO DAILYWM Nystatin Cream [Mycostatin Cream] 1 applic TOP BID 03/16/18 21:00 Betamethasone Aug 0.05% Cream [Diprolene AF 0.05% Cream] 1 applic TOP BID 03/16/18 Lunch DIET [Low Sodium Diet] [DIET] 03/17/18 09:00 Metoprolol Succinate [Toprol Xl] 50 mg PO BID hydrALAZINE [Apresoline] 25 mg PO QID 03/18/18 07:00 Levothyroxine [Synthroid] 200 mcg PO QDAC Subjective - Subjective Patient Reports: Other (Pain everywhere and is "muscle spasms.") Nursing Reports: Other (She wants Dilaudid for pain control.) Objective Vital Signs: Vital Signs - 24 hr 03/16/18 03/16/18 03/16/18 09:00 09:41 09:55 Temperature Heart Rate Heart Rate [ 79 Monitoring electrodes] Respiratory 17 16 Rate Blood Pressure 148/84 H Blood Pressure 143/81 H [Right Radial artery] O2 Saturation 90 L 91 L 03/16/18 03/16/18 03/16/18 10:00 11:00 11:28 Temperature 37 C Heart Rate Heart Rate [ 79 73 74 Monitoring electrodes] Respiratory 15 15 14 Rate Blood Pressure Blood Pressure 178/97 H 174/93 H 203/107 H [Right Radial artery] O2 Saturation 96 96 95 03/16/18 03/16/18 03/16/18 11:40 12:00 12:10 Temperature Heart Rate Heart Rate [ 84 Monitoring electrodes] Respiratory 18 Rate Blood Pressure 203/107 H 124/80 Blood Pressure 173/99 H [Right Radial artery] O2 Saturation 2 L 03/16/18 03/16/18 03/16/18 12:25 13:00 14:00 Temperature Heart Rate 83 Heart Rate [ 70 65 Monitoring electrodes] Respiratory 16 15 12 Rate Blood Pressure Blood Pressure 124/80 141/89 H [Right Radial artery] O2 Saturation 96 97 03/16/18 03/16/18 03/16/18 15:00 15:32 16:00 Temperature Heart Rate Heart Rate [ 66 70 66 Monitoring electrodes] Respiratory 12 13 14 Rate Blood Pressure Blood Pressure 165/97 H 168/91 H 155/55 H [Right Radial artery] O2 Saturation 93 96 95 03/16/18 03/16/18 03/16/18 16:36 17:00 18:02 Temperature 37.2 C Heart Rate Heart Rate [ 71 68 Monitoring electrodes] Respiratory 18 15 Rate Blood Pressure Blood Pressure 153/86 H 168/93 H 165/83 H [Right Radial artery] O2 Saturation 94 03/16/18 03/16/18 03/16/18 19:00 20:00 20:10 Temperature 37.3 C Heart Rate Heart Rate [ 68 74 Monitoring electrodes] Respiratory 11 L 15 Rate Blood Pressure 205/112 H Blood Pressure 195/105 H 205/112 H [Right Radial artery] O2 Saturation 94 95 03/16/18 03/16/18 03/16/18 20:36 21:00 21:30 Temperature Heart Rate 76 Heart Rate [ 73 84 Monitoring electrodes] Respiratory 20 18 Rate Blood Pressure 208/111 H Blood Pressure 137/105 H 168/111 H [Right Radial artery] O2 Saturation 94 94 03/16/18 03/16/18 03/16/18 21:40 22:00 23:00 Temperature Heart Rate Heart Rate [ 82 72 Monitoring electrodes] Respiratory 20 15 Rate Blood Pressure 168/111 H Blood Pressure 189/104 H 146/81 H [Right Radial artery] O2 Saturation 92 93 03/17/18 03/17/18 03/17/18 00:00 01:00 02:00 Temperature 37.3 C Heart Rate Heart Rate [ 67 69 67 Monitoring electrodes] Respiratory 14 12 13 Rate Blood Pressure Blood Pressure 157/96 H 159/98 H 127/99 H [Right Radial artery] O2 Saturation 92 93 99 03/17/18 03/17/18 03/17/18 02:56 04:00 05:00 Temperature 36.9 C Heart Rate Heart Rate [ 66 67 66 Monitoring electrodes] Respiratory 17 15 16 Rate Blood Pressure Blood Pressure 163/88 H 152/76 H 142/81 H [Right Radial artery] O2 Saturation 94 94 93 03/17/18 03/17/18 03/17/18 06:00 06:32 07:00 Temperature Heart Rate Heart Rate [ 73 75 Monitoring electrodes] Respiratory 11 L 17 Rate Blood Pressure 199/98 H Blood Pressure 180/97 H 188/100 H [Right Radial artery] O2 Saturation 94 03/17/18 03/17/18 07:02 07:37 Temperature Heart Rate 74 Heart Rate [ Monitoring electrodes] Respiratory 17 Rate Blood Pressure 185/98 H Blood Pressure [Right Radial artery] O2 Saturation Oxygen O2 Source Nasal cannula I&O (Last 24 Hrs): Intake and Output Totals x24h 03/15/18 03/16/18 03/17/18 23:59 23:59 23:59 Intake Total 2319.983 2773.850 60 Output Total 2855 775 150 Balance -705.305 7509.850 -90 General: Alert, Oriented x3 HEENT: Mucous membr. moist/pink, Other (Rash on cheeks is smaller than yesterday) Neck: Supple, Other (Obese) Neuro: Non Focal Cardiovascular: Regular rate, No murmurs Respiratory: No respiratory distress, Breath sounds nml Abdomen: Normal bowel sounds, Soft Extremities: No edema - Results Results: Laboratory Results WBC 16.8 x10^3/uL (4.8-10.8) H 03/17/18 05:10 RBC 4.10 10^6/uL (4.20-5.40) L 03/17/18 05:10 Hgb 11.2 g/dL (12.0-16.0) L 03/17/18 05:10 Hct 34.9 % (37.0-47.0) L 03/17/18 05:10 MCV 85.3 fL (81.0-99.0) 03/17/18 05:10 MCH 27.4 pg (27.0-31.0) 03/17/18 05:10 MCHC 32.1 g/dL (32.0-36.0) 03/17/18 05:10 RDW 14.9 % (12.0-15.0) 03/17/18 05:10 Plt Count 390 10^3/uL (130-450) 03/17/18 05:10 MPV 6.7 fL (7.9-10.8) L 03/17/18 05:10 Neut # (Auto) 10.9 10^3/uL (1.5-6.6) H 03/14/18 04:20 Lymph # (Auto) 1.0 10^3/uL (1.5-3.5) L 03/14/18 04:20 [place] # (Auto) 1.4 10^3/uL (0.0-1.0) H 03/14/18 04:20 Eos # (Auto) 0.5 10^3/uL (0.0-0.7) 03/14/18 04:20 Baso # (Auto) 0.1 10^3/uL (0.0-0.1) 03/14/18 04:20 Absolute Nucleated RBC 0.01 x10^3/uL 03/14/18 04:20 Total Counted 100 03/11/18 02:50 Band Neuts % (Manual) 16 % (0-10) H 03/11/18 02:50 Abnorm Lymph % (Manual) 0 % 03/11/18 02:50 Metamyelocytes % 4 % (-0) H 03/09/18 22:15 Nucleated RBC % 0.0 /100WBC 03/14/18 04:20 Neutrophils # (Manual) 16.7 10^3/uL (1.5-6.6) H 03/11/18 02:50 Lymphocytes # (Manual) 2.0 10^3/uL (1.5-3.5) 03/11/18 02:50 Monocytes # (Manual) 1.2 10^3/uL (0.0-1.0) H 03/11/18 02:50 Eosinophils # (Manual) 0.2 10^3/uL (0-0.7) 03/11/18 02:50 Basophils # (Manual) 0.0 10^3/uL (0-0.1) 03/11/18 02:50 Differential Comment MANUAL DIFFERENTIAL 03/11/18 02:50 Manual Slide Review Indicated 03/09/18 22:15 Platelet Estimate NORMAL (130-450,000) (NORMAL) 03/11/18 02:50 Platelet Morphology NORMAL APPEARANCE (NORMAL) 03/09/18 22:15 RBC Morph Micro Appear NORMAL APPEARANCE (NORMAL) 03/11/18 02:50 Bld Gas Analysis Time 1120 03/13/18 11:20 Sample Site RIGHT RADIAL 03/13/18 11:20 ABG pH 7.39 (7.35-7.45) 03/13/18 11:20 ABG pCO2 47 mmHg (34-45) H 03/13/18 11:20 ABG pO2 74 mmHg (80-100) L 03/13/18 11:20 ABG HCO3 27.9 mmol/L (22.0-26.0) H 03/13/18 11:20 ABG Total CO2 29.3 MMOL/L (21.0-29.0) H 03/13/18 11:20 ABG O2 Saturation 95 % (94-98) 03/13/18 11:20 ABG Base Excess 2.4 mmol/L (-2.0-3.0) 03/13/18 11:20 Amarjit Test POSITIVE 03/13/18 11:20 VBG pH 7.499 (7.31-7.41) H 03/17/18 05:10 Ionized Calcium 1.04 mmol/L (1.15-1.33) L 03/17/18 05:10 Respiration Rate 22 b/min 03/13/18 11:20 O2 Delivery Device BiPAP 03/13/18 11:20 O2 Liters/Min 45.00 LPM 03/12/18 21:30 Vent Mode SYNCHRONOUS/TIMES 03/13/18 11:20 FiO2 0.28 03/13/18 11:20 Tidal Volume 480 mL 03/12/18 21:30 PEEP 7 cmH2O 03/13/18 11:20 Pressure Support Vent 7 cmH2O 03/12/18 21:30 EPAP 5 cmH2O 03/13/18 11:20 IPAP 12 cmH2O 03/13/18 11:20 Sodium 141 mmol/L (135-145) 03/17/18 05:10 Potassium 3.6 mmol/L (3.5-5.0) 03/17/18 05:10 Chloride 103 mmol/L (101-111) 03/17/18 05:10 Carbon Dioxide 29 mmol/L (21-32) 03/17/18 05:10 Anion Gap 9.0 (6-13) 03/17/18 05:10 BUN 19 mg/dL (6-20) 03/17/18 05:10 Creatinine 1.3 mg/dL (0.4-1.0) H 03/17/18 05:10 Estimated GFR (MDRD) 42 (>89) L 03/17/18 05:10 Glucose 114 mg/dL (70-100) H 03/17/18 05:10 Lactic Acid 1.3 mmol/L (0.5-2.2) 03/12/18 20:35 Calcium 8.6 mg/dL (8.5-10.3) 03/17/18 05:10 Phosphorus 3.3 mg/dL (2.5-4.6) 03/17/18 05:10 Magnesium 1.8 mg/dL (1.7-2.8) 03/17/18 05:10 Total Bilirubin 0.4 mg/dL (0.2-1.0) 03/14/18 04:20 AST 31 IU/L (10-42) 03/14/18 04:20 ALT 27 IU/L (10-60) 03/14/18 04:20 Alkaline Phosphatase 103 IU/L (42-121) 03/14/18 04:20 Total Creatine Kinase 54 IU/L (22-269) 03/09/18 22:15 Troponin I 0.05 ng/mL (<0.49) 03/12/18 20:48 B-Natriuretic Peptide 148 pg/mL (5-100) H 03/09/18 22:15 Total Protein 6.2 g/dL (6.7-8.2) L 03/14/18 04:20 Albumin 2.6 g/dL (3.2-5.5) L 03/16/18 03:43 Globulin 3.7 g/dL (2.1-4.2) 03/14/18 04:20 Albumin/Globulin Ratio 0.7 (1.0-2.2) L 03/14/18 04:20 Lipase 15 U/L (22-51) L 03/09/18 22:15 TSH < 0.08 uIU/mL (0.34-5.60) L 03/16/18 03:30 Free T4 0.55 ng/dL (0.58-1.64) L 03/16/18 03:30 Urine Color YELLOW 03/10/18 01:05 Urine Clarity CLOUDY (CLEAR) 03/10/18 01:05 Urine pH 6.0 PH (5.0-7.5) 03/10/18 01:05 Ur Specific [place] 1.025 (1.002-1.030) 03/10/18 01:05 Urine Protein 100 mg/dL (NEGATIVE) H 03/10/18 01:05 Urine Glucose (UA) NEGATIVE mg/dL (NEGATIVE) 03/10/18 01:05 Urine Ketones NEGATIVE mg/dL (NEGATIVE) 03/10/18 01:05 Urine Occult Blood MODERATE (NEGATIVE) H 03/10/18 01:05 Urine Nitrite NEGATIVE (NEGATIVE) 03/10/18 01:05 Urine Bilirubin NEGATIVE (NEGATIVE) 03/10/18 01:05 Urine Urobilinogen 0.2 (NORMAL) E.U./dL (NORMAL) 03/10/18 01:05 Ur Leukocyte Esterase LARGE (NEGATIVE) H 03/10/18 01:05 Urine RBC 11-25 /HPF (0-5) H 03/10/18 01:05 Urine WBC >25 /HPF (0-5) H 03/10/18 01:05 Ur Squamous Epith Cells FEW Squamous (<= Few) 03/10/18 01:05 Urine Bacteria Many /HPF (None Seen) H 03/10/18 01:05 Ur Microscopic Review INDICATED 03/10/18 01:05 Urine Culture Comments INDICATED 03/10/18 01:05 Last Dose Date 03/10/18 03/11/18 02:50 Last Dose Time 1400 03/11/18 02:50 Random Gentamicin 18.8 ug/mL H* 03/11/18 02:50 Salicylates < 6.0 mg/dL 03/09/18 22:15 Urine Opiates Screen POSITIVE (NEGATIVE) H 03/10/18 01:05 Ur Oxycodone Screen NEGATIVE (NEGATIVE) 03/10/18 01:05 Urine Methadone Screen NEGATIVE (NEGATIVE) 03/10/18 01:05 Ur Propoxyphene Screen NEGATIVE (NEGATIVE) 03/10/18 01:05 Acetaminophen < 10 ug/mL (10-30) L 03/09/18 22:15 Ur Barbiturates Screen NEGATIVE (NEGATIVE) 03/10/18 01:05 Ur Tricyclics Screen NEGATIVE (NEGATIVE) 03/10/18 01:05 Ur Phencyclidine Scrn NEGATIVE (NEGATIVE) 03/10/18 01:05 Ur Amphetamine Screen NEGATIVE (NEGATIVE) 03/10/18 01:05 U Methamphetamines Scrn NEGATIVE (NEGATIVE) 03/10/18 01:05 U Benzodiazepines Scrn NEGATIVE (NEGATIVE) 03/10/18 01:05 Urine Cocaine Screen NEGATIVE (NEGATIVE) 03/10/18 01:05 U Cannabinoids Screen NEGATIVE (NEGATIVE) 03/10/18 01:05 Ethyl Alcohol < 5.0 mg/dL 03/09/18 22:15 Influenza A (Rapid) Negative (Negative) 03/12/18 01:20 Influenza B (Rapid) Negative (Negative) 03/12/18 01:20 Sepsis Event Note (H) - Evaluation Current Stage of Sepsis: Septic shock Possible source of Sepsis: positive: Genitourinary - Sepsis Criteria Sepsis Criteria: Recorded Heart Rate greater than 90 bpm, Recorded Respiratory Rate greater than 20, Respiratory: Increasing oxygen requirements, WBC count greater than 12,000 or less than 4000, SBP drop more than 40mHg, MAP less than 65 mmHg, Metabolic: lactate > 2 mmol/L
[2018-03-17] MEDS ORDERED: hydrALAZINE 10 MG TABLET ONE (08:14)
[2018-03-17] MEDS: MULTIVITAMIN W/MINERALS TABLET PO SCH (08:28)
[2018-03-17] MEDS: ESCITALOPRAM 10 MG TABLET PO SCH (08:29)
[2018-03-17] MEDS: busPIRone 5 MG TABLET PO SCH ×2 (08:29→21:20)
[2018-03-17] MEDS: PHENAZOPYRIDINE 100 MG TABLET PO SCH ×3 (08:30→17:56)
[2018-03-17] MEDS: IBUPROFEN 600 MG TABLET PO PRN ×3 (08:30→19:43)
[2018-03-17] MEDS: METOPROLOL SUCCINATE 50 MG TABLET PO SCH ×2 (08:30→21:20)
[2018-03-17] MEDS: amLODIPine 5 MG TABLET PO SCH (08:31)
[2018-03-17] MEDS: FAMOTIDINE 20 MG TABLET PO SCH ×2 (08:31→21:20)
[2018-03-17] MEDS: guaiFENesin 600 MG TABLET PO SCH ×2 (08:31→21:20)
[2018-03-17] MEDS: POLYETHYLENE GLYCOL 3350 17 GM PACKET PO SCH (08:53)
[2018-03-17] MEDS: SODIUM CHLORIDE FLUSH 0.9% 10 ML SYRINGE IVP SCH ×3 (08:55→21:22)
[2018-03-17] MEDS: cefTRIAXone 1 GM in SODIUM CHLORIDE 0.9% MINIBAG 100 ML IV SCH (08:55)
[2018-03-17] MEDS: HEPARIN 5,000 UNIT/ML VIAL SUBQ SCH ×2 (08:56→21:21)
[2018-03-17] MEDS: hydrALAZINE 25 MG TABLET PO SCH ×4 (09:35→21:20)
[2018-03-17] MEDS: HYDROmorphone 2 MG/ML VIAL IVP PRN (09:41)
[2018-03-17] MEDS: SACCHAROMYCES BOULARDII 250 MG CAPSULE PO SCH ×3 (09:42→17:50)
[2018-03-17] MEDS: ACETAMINOPHEN/CODEINE 300 MG/30 MG TABLET PO PRN ×3 (11:26→19:43)
[2018-03-17] MEDS: CYCLOBENZAPRINE 10 MG TABLET PO PRN ×2 (11:26→21:20)
[2018-03-17] MEDS: BETAMETHASONE AUG 0.05% CREAM 15 GM TUBE TOP SCH ×2 (11:44→21:21)
[2018-03-17] MEDS: NYSTATIN CREAM 15 GM TUBE TOP SCH ×2 (11:44→21:21)
[2018-03-17] MEDS: QUEtiapine 25 MG TABLET PO SCH (21:20)
[2018-03-18] MEDS: ACETAMINOPHEN/CODEINE 300 MG/30 MG TABLET PO PRN ×4 (01:11→17:07)
[2018-03-18] MEDS: ACETAMINOPHEN 325 MG TABLET PO PRN (01:11)
[2018-03-18] MEDS ORDERED: diphenhydrAMINE 25 MG CAPSULE PO PRN (03:00)
[2018-03-18 05:49] LABS: BASOPHILS # (AUTO) 0.1 10^3/uL (0.0-0.1); BASOPHILS % (AUTO) 0.6 %; EOSINOPHILS # (AUTO) 0.8 10^3/uL (0.0-0.7); HGB - HEMOGLOBIN 11.3 g/dL (12.0-16.0); LYMPHOCYTES # (AUTO) 2.3 10^3/uL (1.5-3.5); LYMPHOCYTES % (AUTO) 13.8 %; MEAN CORPUSCULAR HEMOGLOBIN 28.4 pg (27.0-31.0); MEAN CORPUSCULAR HGB CONC 33.3 g/dL (32.0-36.0); MEAN CORPUSCULAR VOLUME 85.2 fL (81.0-99.0); MEAN PLATELET VOLUME 7.1 fL (7.9-10.8); MONOCYTES # (AUTO) 0.8 10^3/uL (0.0-1.0); MONOCYTES % (AUTO) 4.5 %; NEUTROPHILS # (AUTO) 12.9 10^3/uL (1.5-6.6); NEUTROPHILS % (AUTO) 76.1 %; PLT - PLATELET COUNT 412 10^3/uL (130-450); RED BLOOD COUNT 3.99 10^6/uL (4.20-5.40); RED CELL DISTRIBUTION WIDTH 14.7 % (12.0-15.0); WHITE BLOOD COUNT 16.9 x10^3/uL (4.8-10.8)
[2018-03-18 06:00] LABS: CALCIUM 8.5 mg/dL (8.5-10.3); CREATININE 1.3 mg/dL (0.4-1.0); MAGNESIUM 1.8 mg/dL (1.7-2.8); PHOSPHORUS 3.7 mg/dL (2.5-4.6)
[2018-03-18] MEDS: LEVOTHYROXINE 100 MCG TABLET PO SCH (06:41)
[2018-03-18] MEDS: GABAPENTIN 300 MG CAPSULE PO SCH ×3 (06:41→21:35)
--- NOTE | 2018-03-18 07:31 | PROVIDER PROGRESS NOTE ---
Subjective - Prog Note Date Prog Note Date: 03/18/18 Prog Note Time: 07:30 Current Medications - Current Medications Current Medications: Active Medications Acetaminophen (Tylenol) 650 mg PO Q4HR PRN PRN Reason: Pain or Fever > 38C (100.4F) Last Admin: 03/18/18 01:11 Dose: 650 mg Acetaminophen/Codeine Phosphate (Tylenol #3) 1 tab PO Q4HR PRN PRN Reason: PAIN Last Admin: 03/18/18 01:11 Dose: 1 tab Albuterol/Ipratropium (Duoneb) 3 ml INH RTBID [facility] Last Admin: 03/17/18 20:45 Dose: 3 ml Amlodipine Besylate (Norvasc) 10 mg PO DAILY [facility] Last Admin: 03/17/18 08:31 Dose: 10 mg Betamethasone Dipropion Augmented (Diprolene Af 0.05% Cream) 1 applic TOP BID [facility] Last Admin: 03/17/18 21:21 Dose: 1 applic Buspirone HCl (Buspar) 5 mg PO BID [facility] Last Admin: 03/17/18 21:20 Dose: 5 mg Cyclobenzaprine HCl (Flexeril) 10 mg PO TID PRN PRN Reason: Spasms Last Admin: 03/17/18 21:20 Dose: 10 mg Diphenhydramine HCl (Benadryl) 25 mg PO Q4HR PRN PRN Reason: Allergy Symptoms Last Admin: 03/18/18 03:24 Dose: 25 mg Escitalopram Oxalate (Lexapro) 40 mg PO DAILY [facility] Last Admin: 03/17/18 08:29 Dose: 40 mg Famotidine (Pepcid) 20 mg PO BID [facility] Last Admin: 03/17/18 21:20 Dose: 20 mg Gabapentin (Neurontin) 300 mg PO TID [facility] Last Admin: 03/18/18 06:41 Dose: 300 mg Guaifenesin (Mucinex) 600 mg PO BID [facility] Last Admin: 03/17/18 21:20 Dose: 600 mg Heparin Sodium (Beef Lung) () 30 - 50 unit IVP PRN PRN PRN Reason: Central Line Protocol (<24 hr) Heparin Sodium (Porcine) () 5,000 unit SUBQ BID [facility] Last Admin: 03/17/18 21:21 Dose: 5,000 unit Hydralazine HCl (Apresoline) 25 mg PO QID [facility] Last Admin: 03/17/18 21:20 Dose: 25 mg Ceftriaxone Sodium 1 gm/ (Sodium Chloride) 100 mls @ 200 mls/hr IV DAILY [facility] Last Infusion: 03/17/18 10:28 Dose: Infused Ibuprofen (Motrin) 600 mg PO Q6HR PRN PRN Reason: PAIN Last Admin: 03/17/18 19:43 Dose: 600 mg Ipratropium [place] (Atrovent) 0.5 mg INH Q6HR PRN PRN Reason: Wheezing Last Admin: 03/11/18 14:40 Dose: 0.5 mg Levothyroxine Sodium (Synthroid) 200 mcg PO QDAC [facility] Last Admin: 03/18/18 06:41 Dose: 200 mcg Lorazepam (Ativan Inj (Vial)) 0.5 mg IVP Q4H PRN PRN Reason: Anxiety Last Admin: 03/13/18 23:39 Dose: 0.5 mg Metoprolol Succinate (Toprol Xl) 50 mg PO BID [facility] Last Admin: 03/17/18 21:20 Dose: 50 mg Metoprolol Tartrate (Lopressor Inj) 5 mg IVP Q4HR PRN PRN Reason: Blood Pressure Last Admin: 03/17/18 06:32 Dose: 5 mg Mineral Oil (Cavilon) 1 applic TOP PRN PRN PRN Reason: Skin Care Last Admin: 03/13/18 16:37 Dose: 1 applic Multivitamins/Minerals (Theragran M) 1 tab PO DAILYWM [facility] Last Admin: 03/17/18 08:28 Dose: 1 tab Nystatin (Mycostatin Cream) 1 applic TOP BID [facility] Last Admin: 03/17/18 21:21 Dose: 1 applic Ondansetron HCl (Zofran Inj) 4 mg IVP Q6HR PRN PRN Reason: Nausea / Vomiting Last Admin: 03/12/18 17:57 Dose: 4 mg Phenazopyridine HCl (Pyridium) 100 mg PO TIDWM [facility] Last Admin: 03/17/18 17:56 Dose: 100 mg Polyethylene Glycol (Miralax) 17 gm PO DAILY [facility] Last Admin: 03/17/18 08:53 Dose: Not Given Potassium Chloride (K-Dur) 40 meq PO ONCE ONE; Protocol Stop: 03/18/18 08:01 Quetiapine Fumarate (Seroquel) 50 mg PO QPM [facility] Last Admin: 03/17/18 21:20 Dose: 50 mg Saccharomyces Boulardii (Florastor) 250 mg PO BIDWM [facility] Last Admin: 03/17/18 17:50 Dose: 250 mg Sodium Chloride (Normal Saline Flush 0.9%) 10 ml IVP 0100,0900,1700 [facility] Last Admin: 03/17/18 21:22 Dose: 10 ml Sodium Chloride (Normal Saline Flush 0.9%) 10 ml IVP PRN PRN PRN Reason: NEEDED PER PROVIDER ORDERS Last Admin: 03/16/18 15:50 Dose: 10 ml Sodium Chloride (Normal Saline Flush 0.9%) 20 ml IVP PRN PRN PRN Reason: After Blood Draw Last Admin: 03/16/18 03:36 Dose: 20 ml Escitalopram [Lexapro] 40 mg PO DAILY 04/01/14 Estrogens, Conjugated [Premarin] 1.25 mg PO DAILY 04/01/14 Gabapentin 300 mg PO TID 11/25/16 busPIRone [Buspar] 5 mg PO BID 03/13/17 Celecoxib 200 mg PO BID 03/10/18 Levothyroxine Sodium 300 mcg PO DAILY 03/10/18 Tizanidine HCl 4 mg PO TID PRN 03/10/18 Trazodone HCl 100 mg PO QPM PRN 03/10/18 Objective - Vital Signs/Intake & Output Reviewed Vital Signs: Yes Vital Signs: Vital Signs x48h Temp Pulse Resp BP Pulse Ox 03/18/18 04:42 37.0 C 73 16 139/96 H 95 03/18/18 01:00 68 20 151/88 H 96 Intake & Output: Intake & Output 03/15/18 03/16/18 03/17/18 03/18/18 23:59 23:59 23:59 23:59 Intake Total 2529.983 2773.850 2040 700 Output Total 2855 775 550 Balance -027.464 7139.850 1490 700 - Lab Results Fish Bones: 03/18/18 04:55 03/18/18 04:55 Other Labs: Lab Results x24hrs 03/18/18 03/18/18 Range/Units 04:55 04:55 WBC 16.9 H (4.8-10.8) x10^3/uL RBC 3.99 L (4.20-5.40) 10^6/uL Hgb 11.3 L (12.0-16.0) g/dL Hct 34.0 L (37.0-47.0) % MCV 85.2 (81.0-99.0) fL MCH 28.4 (27.0-31.0) pg MCHC 33.3 (32.0-36.0) g/dL RDW 14.7 (12.0-15.0) % Plt Count 412 (130-450) 10^3/uL MPV 7.1 L (7.9-10.8) fL Neut # (Auto) 12.9 H (1.5-6.6) 10^3/uL Lymph # (Auto) 2.3 (1.5-3.5) 10^3/uL Labette # (Auto) 0.8 (0.0-1.0) 10^3/uL Eos # (Auto) 0.8 H (0.0-0.7) 10^3/uL Baso # (Auto) 0.1 (0.0-0.1) 10^3/uL Absolute Nucleated RBC 0.01 x10^3/uL Nucleated RBC % 0.0 /100WBC Sodium 138 (135-145) mmol/L Potassium 3.4 L (3.5-5.0) mmol/L Chloride 102 (101-111) mmol/L Carbon Dioxide 27 (21-32) mmol/L Anion Gap 9.0 (6-13) BUN 21 H (6-20) mg/dL Creatinine 1.3 H (0.4-1.0) mg/dL Estimated GFR (MDRD) 42 L (>89) Glucose 149 H (70-100) mg/dL Calcium 8.5 (8.5-10.3) mg/dL Phosphorus 3.7 (2.5-4.6) mg/dL Magnesium 1.8 (1.7-2.8) mg/dL ABX Reporting Has patient been on IV antibiotics over the past 48 hours?: Yes Sepsis Event Note (H) - Evaluation Current Stage of Sepsis: Septic shock Possible source of Sepsis: positive: Genitourinary - Sepsis Criteria Sepsis Criteria: Recorded Heart Rate greater than 90 bpm, Recorded Respiratory Rate greater than 20, Respiratory: Increasing oxygen requirements, WBC count gre ater than 12,000 or less than 4000, SBP drop more than 40mHg, MAP less than 65 mmHg, Metabolic: lactate > 2 mmol/L Assessment/Plan - Problem List (1) Acute diastolic heart failure with preserved ejection fraction Impression: This resulted from iv hydration for hypotension at admission, then for hydration and nutrition during obtundation, and also from severe HTN for the past few days. Manifestation of this was with hypoxemia, mild acute respiratory distress. Echo March 10 showed mild concentric left ventricular hypertrophy with normal ejection fraction at 60%. Right ventricle not well seen. Mild diastolic dysfunction. Was put on BiPAP and given Lasix. She hated the BiPAP and destroyed the mass. With brisk urine output her oxygenation improved. She had neg fluid balance and did well . BNP was 148. Continue to monitor I's and O's and adjust fluifds and diuretics. BP control impoortant, meds will be adjusted also. BNP in am. (2) HTN (hypertension) Qualifiers: Hypertension type: essential hypertension Qualified Code(s): I10 - Essential (primary) hypertension Assessment/Plan: Clonidone 0.1 mg po bid added 03/17 and increase B-summer, since resting HR in 80's and continue Norvasc. Nitro off slowly 03/17 BP still high at times 130-180/ 80-115 waiting for med levels to adjust before making even more changes today (3) Sepsis due to Escherichia coli Assessment/Plan: Resolved. She was initially on Zosyn, then Zosyn and gentamicin. With worsening creatinin e gentamicin stopped and she was put on meropenem and Zosyn. She was also given moxifloxacin 1 dose. She stayed on Zosyn and meropenem until 03/12 when culture sensitivity were finalized and E. coli is pansensitive. She is now on Rocephin day #5. Blood cultures negative March 11. She will need 14 days of IV antibiotic therapy with discontinuation March 24 after that dose Will ask for placement of a PICC line which was done 03/12, since she will need 14 dauys of iv antibiotics due to bacteria in the blood stream. Therefore, she will need nursing care at a SNF for this treatment plan, when she is clinically suitable for [facility], in several days; the Service Cleaner has been informed by Dr Johnson. She pulled out the PICC line or the PICC line fell out. A new PICC line was attempted March 16. Could not be placed. We will make another attempt with anesthesia March 19. Physical therapy will try and see her today (4) CONSTANTIN (acute kidney injury) Assessment/Plan: It is likely from ATN due to hypotension (when she was in shock), and nephrotoxins (which have been stopped). Slow recovery of creatinine with iv hydration since admission. Continue to follow BMP daily and avoid nephrotoxins. (5) Bipolar disorder Assessment/Plan: Pt on her meds (6) Chronic pain Assessment/Plan: If her pain ("cramping muscles") is uncontrolled, this may be adding to un controlled HTN. Will add Motrin po, also on Tylenol po and iv Dilaudid prn.We are trying to avoid Dilaudid Will check Ca, Mg, K and PO4 and replace if low, which could cause crampy muscles. Add a multivitamin po daily. (7) Septic shock Assessment/Plan: Resolved
[2018-03-18] MEDS: IPRATROPIUM/ALBUTEROL 3 ML NEB INH SCH (07:37)
[2018-03-18] MEDS ORDERED: POTASSIUM CHLORIDE 20 MEQ TABLET PO ONE (08:00)
[2018-03-18] MEDS: PHENAZOPYRIDINE 100 MG TABLET PO SCH ×3 (08:09→17:59)
[2018-03-18] MEDS: guaiFENesin 600 MG TABLET PO SCH ×2 (08:09→21:35)
[2018-03-18] MEDS: SACCHAROMYCES BOULARDII 250 MG CAPSULE PO SCH ×2 (08:09→17:07)
[2018-03-18] MEDS: MULTIVITAMIN W/MINERALS TABLET PO SCH (08:10)
[2018-03-18] MEDS: FAMOTIDINE 20 MG TABLET PO SCH ×2 (08:10→21:35)
[2018-03-18] MEDS: METOPROLOL SUCCINATE 50 MG TABLET PO SCH ×2 (08:10→21:35)
[2018-03-18] MEDS: hydrALAZINE 25 MG TABLET PO SCH ×4 (08:10→21:35)
[2018-03-18] MEDS: CYCLOBENZAPRINE 10 MG TABLET PO PRN ×3 (08:10→21:35)
[2018-03-18] MEDS: ESCITALOPRAM 10 MG TABLET PO SCH (08:10)
[2018-03-18] MEDS: busPIRone 5 MG TABLET PO SCH ×2 (08:10→21:35)
[2018-03-18] MEDS: IBUPROFEN 600 MG TABLET PO PRN ×3 (08:10→21:35)
[2018-03-18] MEDS: BETAMETHASONE AUG 0.05% CREAM 15 GM TUBE TOP SCH ×2 (08:14→21:35)
[2018-03-18] MEDS: amLODIPine 5 MG TABLET PO SCH (08:14)
[2018-03-18] MEDS: POLYETHYLENE GLYCOL 3350 17 GM PACKET PO SCH (08:16)
[2018-03-18] MEDS: HEPARIN 5,000 UNIT/ML VIAL SUBQ SCH ×2 (08:16→21:36)
[2018-03-18] MEDS: cefTRIAXone 1 GM in SODIUM CHLORIDE 0.9% MINIBAG 100 ML IV SCH (08:30)
[2018-03-18] MEDS: ONDANSETRON 4 MG/2 ML VIAL IVP PRN ×2 (08:36→16:30)
[2018-03-18] MEDS: NYSTATIN CREAM 15 GM TUBE TOP SCH ×3 (09:00→21:35)
[2018-03-18] MEDS: SODIUM CHLORIDE FLUSH 0.9% 10 ML SYRINGE IVP SCH ×2 (09:00→16:34)
[2018-03-18] MEDS ORDERED: HYDROmorphone 1 MG/ML SYRINGE ONE (17:59)
[2018-03-18] MEDS: HYDROmorphone 1 MG/ML CARPUJECT IVP STA ×2 (18:00→18:06)
[2018-03-18] MEDS: QUEtiapine 25 MG TABLET PO SCH (21:35)
[2018-03-19] MEDS: SODIUM CHLORIDE FLUSH 0.9% 10 ML SYRINGE IVP SCH ×2 (02:11→10:38)
[2018-03-19 05:15] LABS: BASOPHILS # (AUTO) 0.2 10^3/uL (0.0-0.1); EOSINOPHILS % (AUTO) 5.1 %; HGB - HEMOGLOBIN 11.9 g/dL (12.0-16.0); LYMPHOCYTES # (AUTO) 2.8 10^3/uL (1.5-3.5); LYMPHOCYTES % (AUTO) 14.7 %; MEAN CORPUSCULAR HEMOGLOBIN 27.6 pg (27.0-31.0); MEAN CORPUSCULAR HGB CONC 31.1 g/dL (32.0-36.0); MEAN CORPUSCULAR VOLUME 88.8 fL (81.0-99.0); MEAN PLATELET VOLUME 6.9 fL (7.9-10.8); MONOCYTES % (AUTO) 5.3 %; NEUTROPHILS # (AUTO) 14.3 10^3/uL (1.5-6.6); NEUTROPHILS % (AUTO) 73.9 %; PLT - PLATELET COUNT 385 10^3/uL (130-450); RED BLOOD COUNT 4.32 10^6/uL (4.20-5.40); RED CELL DISTRIBUTION WIDTH 15.2 % (12.0-15.0); WHITE BLOOD COUNT 19.4 x10^3/uL (4.8-10.8)
[2018-03-19 05:20] LABS: CALCIUM 8.5 mg/dL (8.5-10.3); CREATININE 1.4 mg/dL (0.4-1.0)
[2018-03-19] MEDS: ACETAMINOPHEN/CODEINE 300 MG/30 MG TABLET PO PRN ×3 (06:17→16:13)
[2018-03-19] MEDS: GABAPENTIN 300 MG CAPSULE PO SCH ×2 (06:17→14:52)
[2018-03-19] MEDS: LEVOTHYROXINE 100 MCG TABLET PO SCH (06:17)
[2018-03-19] MEDS: IBUPROFEN 600 MG TABLET PO PRN (06:17)
[2018-03-19] MEDS: PHENAZOPYRIDINE 100 MG TABLET PO SCH ×3 (08:06→17:26)
[2018-03-19] MEDS: SACCHAROMYCES BOULARDII 250 MG CAPSULE PO SCH ×2 (08:06→17:27)
[2018-03-19] MEDS: MULTIVITAMIN W/MINERALS TABLET PO SCH (08:06)
[2018-03-19] MEDS: IPRATROPIUM/ALBUTEROL 3 ML NEB INH SCH (08:30)
[2018-03-19] MEDS: busPIRone 5 MG TABLET PO SCH (08:50)
[2018-03-19] MEDS: FAMOTIDINE 20 MG TABLET PO SCH (08:50)
[2018-03-19] MEDS: hydrALAZINE 25 MG TABLET PO SCH ×3 (08:50→17:26)
[2018-03-19] MEDS: amLODIPine 5 MG TABLET PO SCH (08:51)
[2018-03-19] MEDS: ESCITALOPRAM 10 MG TABLET PO SCH (08:52)
[2018-03-19] MEDS ORDERED: cefTRIAXone 2 GM in SODIUM CHLORIDE 0.9% MINIBAG 100 ML IV SCH (09:00)
--- NOTE | 2018-03-19 09:37 | XRAY Report ---
Reason: fever Procedure Date: 03/19/2018 Accession Number: [id number] / [id number] Procedure: XR - Chest 1 View X-Ray CPT Code: 32924 FULL RESULT: EXAM: CHEST RADIOGRAPHY EXAM DATE: 03/19/2018 08:48 AM. CLINICAL HISTORY: Fever. COMPARISON: Chest for line placement 03/16/2018 1:19 PM. Chest 1 view 03/11/2018 7:18 PM. Chest 2 view PA/lat 03/13/2017 12:49 PM. Chest 1 view 03/09/2018 10:13 PM. TECHNIQUE: 1 view. FINDINGS: Lungs/Pleura: Minimal residual haziness at the right cardiophrenic border. Remainder of the lungs appear clear. Mediastinum: Borderline cardiomegaly. Other: None. IMPRESSION: 1. Minimal residual haziness at the right cardiophrenic border. Remainder of the lungs appears clear. Borderline cardiomegaly. RADIA
[2018-03-19] MEDS: BETAMETHASONE AUG 0.05% CREAM 15 GM TUBE TOP SCH (10:15)
--- NOTE | 2018-03-19 10:15 | XRAY Report ---
Reason: PICC at bedside Procedure Date: 03/19/2018 Accession Number: [id number] / [id number] Procedure: XR - Chest for Line Placement CPT Code: FULL RESULT: EXAM: CHEST RADIOGRAPHY EXAM DATE: 03/19/2018 10:02 AM. CLINICAL HISTORY: PICC line placement at bedside. COMPARISON: CHEST 1 VIEW 03/19/2018 8:30 AM. TECHNIQUE: 1 view. FINDINGS: Support apparatus: There is a new left upper extremity PICC. The tip is difficult to visualize due to suboptimal penetration, but appears to be in the mid SVC. Lungs/Pleura: Lung volumes are low. There are mild streaky opacities at bilateral lung bases, similar to prior. Mediastinum: There is stable mild enlargement of the cardiac silhouette. Other: No acute osseous abnormality. IMPRESSION: 1. New left upper extremity PICC. The tip is difficult to visualize due to suboptimal penetration, but appears to be in the mid SVC. 2. Low lung volumes with mild bilateral subsegmental atelectasis. 3. Stable mild cardiomegaly. RADIA
--- NOTE | 2018-03-19 10:30 | ANESTHESIA PROCEDURE NOTE ---
Anesth Central Line Template - Central Line Central Line Preparation: Consent Obtained (line replacement, already consented) Central line type: Other (PICC line in left brachial dave placed high in arm. 5F dual lumen.) Central line aftercare: Placement confirmed, No complications, Pt tolerated well Other Info/Details: Patient prepped with chloraprep to left upper arm, dave accessed but unable to thread wire at brachial site. I a couple of inches towards axilla and reattempted, wire thread easy, line placed with seldinger, trimmed at 37cm. Unable to use teleflex as line short. Confirmed by CXR to be in inomminate per radiologist. OK to use for antibiotics. Dressed with statlock and tegederm.
[2018-03-19] MEDS: POLYETHYLENE GLYCOL 3350 17 GM PACKET PO SCH (10:44)
--- NOTE | 2018-03-19 10:45 | Discharge Plan ---
Discharge Plan Disposition: Home, Self Care Condition: Fair Prescriptions: Amlodipine Besylate [Norvasc] 10 mg PO DAILY #30 tablet cefTRIAXone [Rocephin 2 gram] 2 gm IV DAILY #5 vial Levothyroxine [Synthroid] 200 mcg PO QDAC #30 tablet Losartan/Hydrochlorothiazide [Losartan-Hctz 100-12.5 mg Tab] 1 each PO DAILY #30 tablet Metoprolol Tartrate [Lopressor] 100 mg PO BID #60 tablet Nystatin Cream [Mycostatin Cream] 1 applic TOP BID #1 tube QUEtiapine [SEROquel] 50 mg PO QPM #60 tablet Saccharomyces Boulardii [Florastor] 250 mg PO DAILY #30 capsule Diet: Regular Activity Restrictions: Activity as Tolerated Shower Restrictions: No Driving Restrictions: No Assistance Devices: Walker Instruction Topics: Quetiapine tablets, Hydrochlorothiazide HCTZ Losartan tablets, UTI, Beta Ivanna, Amlodipine, High Blood Pressure, Sepsis Additional Instructions or Follow Up instructions: You were admitted to the hospital because you had been gradually getting weaker, more confused and you had finally slumped to the floor and were unable to get up. When you came to the hospital we found you to have sepsis criteria. Which meant that you had a serious infection affecting your body. During your stay we find did have E. coli urinary tract infection which caused the sepsis. Because the bacteria went into your bloodstream you will need a total of 14 days of IV antibiotic therapy. During your stay you also had problems with your blood pressure, and severe agitation at night. As such, we are asking you to do the next few things. 1. Please see Dr. Samy Henry for blood pressure follow-up since you have been started on 3 new blood pressure drugs to control your blood pressure. He may be able to take you off 1 of them but he needs to see you for that follow-up. 2. Asked Dr. Henry if he can refer you to a sleep specialist for a obesity hypoventilation syndrome and obstructive sleep apnea. Both of those conditions happen in people who become overweight, and gives them problems with sleeping, and gives them high blood pressure in both the lungs as well as high blood pressure in the body. If you have these conditions it is important to get diagnosis and get appropriate treatment 3. Finish IV antibiotics for the treatment of your urinary tract infection and bacteremia. That will be 5 more days and you will be coming to the [facility] for that on a daily basis until the last dose on 03/24 4. Please discuss your chronic pain syndrome with Dr. Henry. During your stay, you required oral opiates and were requesting frequent IV opiates to control diffuse body pain and migraine headache. See if there is a pain clinic that he can refer you to to help you with your daily chronic pain. 5. At night, you had quite a bit of agitation, impulsiveness, confusion and insomnia. For example, at one point you kept insisting that someone had your cane and you were very unhappy that we couldn't find it. You later found out your daughter had it. We started you on Seroquel and you seem to do very well with that. Consider staying on that indefinitely. Please discuss that with Dr. Henry as well to see if you need to stop that or change to something else. 6. As a individual who spends a lot of time indoors, and needs strong bones because of your weight, please consider starting vitamin D 4000 in ternational units daily. Follow-Up Care: [facility] Clinic - Medical No Smoking: If you smoke, Please STOP! Call for help. Follow-up with: Samy Henry, [Primary Care Provider] -
[2018-03-19] MEDS: METOPROLOL SUCCINATE 50 MG TABLET PO SCH (10:47)
[2018-03-19] MEDS: NYSTATIN CREAM 15 GM TUBE TOP SCH (10:49)
[2018-03-19] MEDS: HEPARIN 5,000 UNIT/ML VIAL SUBQ SCH (10:52)
[2018-03-19] MEDS: guaiFENesin 600 MG TABLET PO SCH (10:54)
[2018-03-19 17:19] VITALS: BP 148/86
--- NOTE | 2018-03-22 17:58 | DISCHARGE SUMMARY ---
Physician: Elena Johnson MD DATE OF ADMISSION: 03/10/2018 DATE OF DISCHARGE: 03/19/2018 PRIMARY CARE PROVIDER: Samy Henry DO DISCHARGE DIAGNOSES 1. Septic shock due to urinary tract infection. 2. Escherichia coli bacteremia. 3. Acute diastolic heart failure with preserved ejection fraction. 4. Acute kidney injury. 5. Acute respiratory failure with hypercapnia and hypoxia. 6. Uncontrolled hypertension. 7. Bipolar disorder. 8. Hypokalemia. 9. Chronic pain syndrome. 10. Migraine headache. 11. Morbid obesity. DISCHARGE MEDICATIONS 1. Buspar 5 mg p.o. b.i.d. 2. Celecoxib 200 mg p.o. b.i.d. 3. Lexapro 40 mg p.o. daily. 4. Conjugated estrogen 1.25 mg p.o. daily. 5. Gabapentin 300 mg p.o. t.i.d. 6. Tizanidine 4 mg p.o. t.i.d. p.r.n. 7. Trazodone 100 mg p.o. q.p.m. 8. Tylenol 650 mg p.o. q.4 hours p.r.n. 9. Ibuprofen 600 mg p.o. q.6 hours p.r.n. 10. Norvasc 10 mg daily. 11. Rocephin 2 g daily for 5 more days. 12. Synthroid 200 mcg daily. 13. Losartan/hydrochlorothiazide 104/12.5 1 p.o. daily. 14. Metoprolol tartrate 100 mg p.o. b.i.d. 15. Nystatin cream apply to intertriginous fold b.i.d. 16. Seroquel 50 mg p.o. q.p.m. 17. Florastor 250 mg p.o. daily PRINCIPAL PROCEDURES 1. Chest x-ray on admission showed cardiomegaly and pulmonary vascular congestion suggestive of mild congestive heart failure. Over the course of her stay, she had 5 or 6 chest x-rays. On the last chest x-ray, she has a new left upper extremity PICC line. Low lung volumes with mild bilateral subsegmental atelectasis and stable mild cardiomegaly. 2. Head CT, normal head CT. 3. Pelvis x-ray with mild osteoarthritis of the hips. No evidence of acute fracture. 4. Right IJ triple lumen placed 03/10/2018. 5. PICC line placement 03/16/2018. 6. Retroperitoneal ultrasound for acute kidney injury, showed mild right hydronephrosis. 7. Blood culture on admission was growing Escherichia coli. 8. Urine culture grew out Escherichia coli. 9. Subsequent blood cultures on March 10 and were negative. 10. Echocardiogram: Mild concentric left ventricular hypertrophy with normal systolic ejection fraction of 60%. Mild diastolic dysfunction. Left atrium normal in size. Right ventricle not seen. Pulmonary pressures could not be measured. HISTORY OF PRESENT ILLNESS: The patient is a morbidly obese 57-year-old female who has a past medical history of depression with bipolar disorder, hypothyroidism, migraine headaches, previous pneumonia, who presented to the emergency room on 03/09/2018 and was evaluated into the principal statistical scientist hours of 03/10/2018. She had a main complaint of dizziness, which has been going on for 2 days. Dizzy and weak to the point that she had difficulty standing. She sat down to the floor and could not get up. When seen in the ER by the hospitalist, she was somnolent, would fall back asleep several times during the interview. On targeted questioning, she reported that she had been having fever, felt short of breath prior to becoming dizzy. She had increasing urinary urgency, frequency in the past few days, but on the day of admission had no urine output. She also noted that her urine may smell different. Also of note, the patient's daughter reported that the patient may have been taking more trazodone and tizanidine than was prescribed. She has chronic back pain but, other than tizanidine, does not take any prescription medication for back pain. She takes Advil 4-5 times a day, 2 pills at a time. On examination, she was hypotensive, hypothermic with a temperature of 36.1 and a systolic blood pressure in the 80s-90s. Heart rate in the 70s. She was somnolent and sedated and respiratory rate 18-20 with O2 saturations 96% on room air. White cell count was 29 with 15% bandemia, hemoglobin 11.1. Sodium 133, BUN 26, creatinine 2.2. Her creatinines have been normal in the past. Lactic acid was 2.9. Troponin negative. BNP 148. Toxicology for salicylate, Tylenol and alcohols were negative. CT scan of brain showed no abnormality. Pelvic x-ray was checked because she had slipped to the floor, and there was no fracture. Chest x-ray showed fine bibasilar opacities with possible early CHF, cardiomegaly. On exam, it was noted that the turgor of the skin was decreased, oral mucosa dry, no edema. HOSPITAL COURSE: Multiple attempts were made for central line, and it was unsuccessful and, as such, Anesthesia was called. They were able to place a right IJ. She was placed in the ICU and subsequently went into acute respiratory failure over the next 24 hours. She was diagnosed with sepsis from a UTI and was aggressively resuscitated with IV fluids due to the hypotension. With the IV fluid intake, and sudden rebound in her blood pressure, she was felt to have diastolic heart failure with preserved ejection fraction. Her blood pressure went up to as high as 203/101. It was subsequently discovered, after discussion with her primary care provider, Dr. Henry, that the patient does have intermittent high blood pressure in the office. She has been high as 180/100 in the office, but subsequent blood pressures will be lower, and she was never treated for high blood pressure. It is also felt, with her morbid obesity, that this patient may have undiagnosed obstructive sleep apnea as well as obesity hypoventilation syndrome. She should be evaluated for pulmonary artery pressures. She was placed on BiPAP, but she was very agitated, required one-on-one handling in keeping the facemask on. She received IV Lasix and had brisk diuresis with good urine output. While her oxygen saturations improved and she no longer needed BiPAP, she was still quite somnolent, and still quite hypertensive. As such, nitroglycerin drip was started. IV hydralazine was used. Gradually her blood pressure is getting better under control. She was transitioned over to oral medications. All of these are new for her in the form of losartan, metoprolol, Norvasc. Because of her agitation at night, Seroquel was also used, and that helped tremendously calming her down and making her more appropriate during the day. Migraine headache was treated once with amlodipine. The patient was very insistent that she hurt all over, that everything hurt, and only IV Dilaudid would help. We explained to her that, while we are willing to give her oral opiates p.r.n., the use of IV opiates would probably be inappropriate at this setting. She did negotiate 1 dose of IV Dilaudid for her migraine headache, which resolved. Other problems of hypokalemia were addressed with supplementation. In the outpatient setting, she may need to be referred to Outpatient Clinic for chronic pain management. I have asked her to please follow up with her primary care provider, Dr. Henyr. She needs a blood pressure followup on all of these new medications. He may be able to stop some of them as her blood pressure stabilizes. I also think she should be referred to sleep study for obesity hypoventilation syndrome versus obstructive sleep apnea. She needs to finish IV antibiotics for the treatment of her UTI and bacteremia and will need 5 more days in the outpatient setting. As such, we have contacted [facility], and she is willing to come to the [facility] clinic to get daily Rocephin therapy. Before discharge, we did note that her white cell count was climbing. She had initially presented as 29,000 and had gotten as low as 13.9. However, there were no fevers, lungs were clear, chest x-ray was normal, there were no abdominal findings. She was on appropriate antibiotic therapy with Rocephin, according to sensitivities. As such, while the white cell count needs to be followed, no change in management was instituted. I also explained to her that she should see someone for her chronic pain and be referred to chronic pain clinic. She should probably continue the Seroquel as it seems to help her insomnia and pain at night and confusion during the day. I also recommended that she get a vitamin D level or at least her vitamin D 4000 units. Greater than 30 minutes was spent in coordinating discharge. Case discussed with Dr. Henry before discharge. TD: 03/22/2018 13:09 IRENE
== END 2018-03-19 17:25 | disposition home or self-care (01) | DRG 871 ==
LOC: EDUNIT# → ED 21:45 → ICU 03-10 01:06
PROVIDERS: ADMIT Internal Medicine; ATTEND Specialist
PROC: 02HV33Z Insertion of Infusion Device into Superior Vena Cava, Percutaneous Approach (ICD-10-PCS; principal; 2018-03-10)
PROC: 02HV33Z Insertion of Infusion Device into Superior Vena Cava, Percutaneous Approach (ICD-10-PCS; 2018-03-12)
PROC: 05PYX3Z Removal of Infusion Device from Upper Vein, External Approach (ICD-10-PCS; 2018-03-16)
PROC: 02HV33Z Insertion of Infusion Device into Superior Vena Cava, Percutaneous Approach (ICD-10-PCS; 2018-03-19)
DX: A41.9 Sepsis, unspecified organism (principal); I95.89 Other hypotension; N28.9 Disorder of kidney and ureter, unspecified; N30.00 Acute cystitis without hematuria; A41.51 Sepsis due to Escherichia coli [E. coli]; J44.9 Chronic obstructive pulmonary disease, unspecified; R65.21 Severe sepsis with septic shock; G93.41 Metabolic encephalopathy; I50.31 Acute diastolic (congestive) heart failure; J96.01 Acute respiratory failure with hypoxia; J96.02 Acute respiratory failure with hypercapnia; N17.9 Acute kidney failure, unspecified; N39.0 Urinary tract infection, site not specified; N13.30 Unspecified hydronephrosis; E87.2 Acidosis; T50.3X5A Adverse effect of electrolytic, caloric and water-balance agents, initial encounter; T36.5X5A Adverse effect of aminoglycosides, initial encounter; Y92.230 Patient room in hospital as the place of occurrence of the external cause; E86.0 Dehydration; E86.1 Hypovolemia; I11.0 Hypertensive heart disease with heart failure; R25.2 Cramp and spasm; E87.6 Hypokalemia; L74.0 Miliaria rubra; M79.18 Myalgia, other site; F31.9 Bipolar disorder, unspecified; G89.4 Chronic pain syndrome; M54.9 Dorsalgia, unspecified; G43.909 Migraine, unspecified, not intractable, without status migrainosus; E66.01 Morbid (severe) obesity due to excess calories; E03.9 Hypothyroidism, unspecified; G47.00 Insomnia, unspecified; D64.9 Anemia, unspecified; Z87.01 Personal history of pneumonia (recurrent); Z79.1 Long term (current) use of non-steroidal anti-inflammatories (NSAID); Z79.899 Other long term (current) drug therapy; Z78.1 Physical restraint status; Z87.891 Personal history of nicotine dependence; Z88.5 Allergy status to narcotic agent
CPT/HCPCS: 36415; 36556; 36600; 51702; 70450; 71045; 72170; 76770; 80048; 80053; 80069; 80170; 80306; 80307; 80320; 80329; 81001; 81003; 82040; 82330; 82550; 82803; 83605; 83690; 83735; 83880; 84100; 84439; 84443; 84484; 85025; 85027; 87040; 87077; 87086; 87150; 87181; 87275; 87276; 93005; 93306; 94640; 94660; 96361; 96365; 99285

== ENCOUNTER 2018-05-13 16:59 | Emergency (ER) | payer MEDICARE, MEDICAID ==
--- NOTE | 2018-05-13 17:30 | ED Physician Documentation ---
PD HPI ABD PAIN - Stated complaint Stated Complaint: UNABLE TO URINATE - Chief complaint Chief Complaint: Abd Pain - History obtained from History obtained from: Patient - History of Present Illness Timing - onset: Today (Cannot urinate since 1am assoc with slurred speech. Just finished macrobid for UTI. Feels like hands and feet are puffy and has R flank pain.) Review of Systems Ten Systems: 10 systems reviewed and negative Constitutional: denies: Fever, Chills Cardiac: denies: Chest pain / pressure, Palpitations Respiratory: denies: Dyspnea, Cough GI: reports: Abdominal Pain. 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 : None HEENT: None Psych: Depression, Anxiety, Bipolar disorder Musculoskeletal: Osteoarthritis, Fibromyalgia Derm: None - Past Surgical History Past Surgical History: Yes Ortho: Arthroscopic surgery /TILTROTOR CREW CHIEF: section, Hysterectomy, Oophrectomy, Breast reduction HEENT: Tonsil/Adenoidectomy - Present Medications Home Medications: Ambulatory Orders Medication Instructions Recorded Confirmed Escitalopram [Lexapro] 40 mg PO DAILY 04/01/14 03/20/18 Estrogens, Conjugated [Premarin] 1.25 mg PO DAILY 04/01/14 03/20/18 Gabapentin 300 mg PO TID 11/25/16 03/20/18 busPIRone [Buspar] 5 mg PO BID 03/13/17 03/20/18 Celecoxib 200 mg PO BID 03/10/18 03/20/18 Tizanidine HCl 4 mg PO TID PRN 03/10/18 03/20/18 Trazodone HCl 100 mg PO QPM PRN 03/10/18 03/20/18 Acetaminophen [Tylenol] 650 mg PO Q4HR PRN tablet 03/19/18 03/20/18 Amlodipine Besylate [Norvasc] 10 mg PO DAILY #30 tablet 03/19/18 03/20/18 Ibuprofen [Motrin] 600 mg PO Q6HR PRN tablet 03/19/18 03/20/18 Levothyroxine [Synthroid] 200 mcg PO QDAC #30 tablet 03/19/18 03/20/18 Losartan/Hydrochlorothiazide 1 each PO DAILY #30 tablet 03/19/18 03/20/18 [Losartan-Hctz 100-12.5 mg Tab] Metoprolol Tartrate [Lopressor] 100 mg PO BID #60 tablet 03/19/18 03/20/18 Nystatin Cream [Mycostatin Cream] 1 applic TOP BID #1 tube 03/19/18 03/20/18 QUEtiapine [SEROquel] 50 mg PO QPM #60 tablet 03/19/18 03/20/18 Saccharomyces Boulardii [Florastor] 250 mg PO DAILY #30 capsule 03/19/18 03/20/18 cefTRIAXone [Rocephin 2 gram] 2 gm IV DAILY #5 vial 03/19/18 03/20/18 Oxycodone HCl/Acetaminophen 1 - 2 each PO Q6H PRN #14 tablet 05/13/18 [Percocet 5-325 mg Tablet] Tamsulosin [Flomax] 0.4 mg PO DAILY #14 capsule 05/13/18 - Allergies Allergies/Adverse Reactions: Allergies Allergy/AdvReac Type Severity Reaction Status Date / Time chlorpromazine HCl * Allergy Unknown Verified 05/13/18 17:22 [From Thorazine] droperidol [From Inapsine] Allergy Unknown Verified 05/13/18 17:22 ketorolac tromethamine * Allergy Unknown Verified 05/13/18 17:22 [From Toradol] meperidine HCl * Allergy Unknown Verified 05/13/18 17:22 [From Demerol] metoclopramide HCl * Allergy Unknown Verified 05/13/18 17:22 [From Reglan] morphine Allergy Unknown Verified 05/13/18 17:22 prochlorperazine edisylate * Allergy Unknown Verified 05/13/18 17:22 [From Compazine] prochlorperazine maleate * Allergy Unknown Verified 05/13/18 17:22 [From Compazine] [id number] Antimigraine Allergy Unknown Verified 05/13/18 17:22 Agents - Social History Does the pt smoke?: No Smoking Status: Never smoker Does the pt drink ETOH?: No Does the pt have substance abuse?: No - Immunizations Immunizations are current?: Yes Immunizations: TDAP current <10years, Other immun not current - POLST Patient has POLST: No POLST Status: Full Code PD ED PE NORMAL - Vitals Vital signs reviewed: Yes - General General: Alert and oriented X 3, No acute distress - HEENT HEENT: PERRL, EOMI - Neck Neck: Supple, no meningeal sign, No bony TTP - Cardiac Cardiac: RRR, No murmur - Respiratory Respiratory: No respiratory distress, Clear bilaterally - Abdomen Abdomen: Normal bowel sounds, Soft, Non tender - Back Back: No spinal TTP, Other (Mod R flank TTP) - Derm Derm: Normal color, Warm and dry - Extremities Extremities: Other (slight peripheral edema) - Neuro Neuro: Alert and oriented X 3, Normal speech Eye Opening: Spontaneous Motor: Obeys Commands Verbal: Oriented GCS Score: 15 - Psych Psych: Normal mood, Normal affect Results - Vitals Vitals: Vital Signs - 24 hr 05/13/18 05/13/18 05/13/18 17:06 18:30 20:21 Temperature 36.4 C L 36.8 C 36.9 C Heart Rate 70 75 77 Respiratory 20 16 16 Rate Blood Pressure 142/101 H 140/77 H 137/76 H O2 Saturation 97 96 94 Oxygen O2 Source [] Room air O2 Source Room air - Labs Labs: Laboratory Tests 05/13/18 05/13/18 05/13/18 17:33 17:33 17:33 WBC 9.3 RBC 4.10 L Hgb 12.0 Hct 36.5 L MCV 88.9 MCH 29.4 MCHC 33.0 RDW 15.7 H Plt Count 278 MPV 7.6 L Neut # (Auto) 5.5 Lymph # (Auto) 2.3 [place] # (Auto) 0.7 Eos # (Auto) 0.8 H Baso # (Auto) 0.1 Absolute Nucleated RBC 0.00 Nucleated RBC % 0.0 Sodium Potassium Chloride Carbon Dioxide Anion Gap BUN Creatinine Estimated GFR (MDRD) Glucose Lactic Acid 1.0 Calcium Total Bilirubin AST ALT Alkaline Phosphatase Total Protein Albumin Globulin Albumin/Globulin Ratio Lipase Urine Color Urine Clarity Urine pH Ur Specific [place] Urine Protein Urine Glucose (UA) Urine Ketones Urine Occult Blood Urine Nitrite Urine Bilirubin Urine Urobilinogen Ur Leukocyte Esterase Ur Microscopic Review Urine Culture Comments Urine Opiates Screen Ur Oxycodone Screen Urine Methadone Screen Ur Propoxyphene Screen Ur Barbiturates Screen Ur Tricyclics Screen Ur Phencyclidine Scrn Ur Amphetamine Screen U Methamphetamines Scrn U Benzodiazepines Scrn Urine Cocaine Screen U Cannabinoids Screen Ethyl Alcohol < 5.0 05/13/18 05/13/18 17:33 17:45 WBC RBC Hgb Hct MCV MCH MCHC RDW Plt Count MPV Neut # (Auto) Lymph # (Auto) [place] # (Auto) Eos # (Auto) Baso # (Auto) Absolute Nucleated RBC Nucleated RBC % Sodium 138 Potassium 3.7 Chloride 101 Carbon Dioxide 25 Anion Gap 12.0 BUN 28 H Creatinine 1.1 H Estimated GFR (MDRD) 51 L Glucose 80 Lactic Acid Calcium 8.8 Total Bilirubin 0.3 AST 28 ALT 28 Alkaline Phosphatase 61 Total Protein 6.6 L Albumin 3.7 Globulin 2.9 Albumin/Globulin Ratio 1.3 Lipase 23 Urine Color YELLOW Urine Clarity CLEAR Urine pH 5.0 Ur Specific [place] >=1.030 H Urine Protein NEGATIVE Urine Glucose (UA) NEGATIVE Urine Ketones NEGATIVE Urine Occult Blood NEGATIVE Urine Nitrite NEGATIVE Urine Bilirubin NEGATIVE Urine Urobilinogen 0.2 (NORMAL) Ur Leukocyte Esterase NEGATIVE Ur Microscopic Review NOT INDICATED Urine Culture Comments NOT INDICATED Urine Opiates Screen POSITIVE H Ur Oxycodone Screen NEGATIVE Urine Methadone Screen NEGATIVE Ur Propoxyphene Screen NEGATIVE Ur Barbiturates Screen POSITIVE H Ur Tricyclics Screen NEGATIVE Ur Phencyclidine Scrn NEGATIVE Ur Amphetamine Screen NEGATIVE U Methamphetamines Scrn NEGATIVE U Benzodiazepines Scrn NEGATIVE Urine Cocaine Screen NEGATIVE U Cannabinoids Screen NEGATIVE Ethyl Alcohol - Rads (name of study) CT KUB Radiology: EMP read contemporaneously (Mild right-sided hydronephrosis due to a 6 mm proximal ureter stone and There is also a 3 mm stone in the lower pole of the right renal pelvis. Bilateral fat inguinal fat containing inguinal hernias. Status post hysterectomy.) PD MEDICAL DECISION MAKING - ED course ED course: 57-year-old woman who presents with sensations of urinary retention but really no objective evidence of this but she does have a 6 mm proximal ureteral stone on the right. She was administered Flomax and IM Dilaudid with excellent relief of her pain and requested discharge. Departure - Departure Disposition: 01 Home, Self Care Clinical Impression: Renal colic HTN (hypertension) Qualifiers: Hypertension type: essential hypertension Qualified Code(s): I10 - Essential (primary) hypertension Condition: Stable Record reviewed to determine appropriate education?: Yes Instructions: ED Stone Renal W Colic Follow-Up: Amanda Whiting MD [Physician No Access] - Within 3 Days Prescriptions: Oxycodone HCl/Acetaminophen [Percocet 5-325 mg Tablet] 1 - 2 each PO Q6H PRN #14 tablet PRN Reason: pain Tamsulosin [Flomax] 0.4 mg PO DAILY #14 capsule Comments: As discussed, your kidney stone is fairly large and may require urologic intervention to take care of it. I recommend following up with urologist, one option is listed on this form. Call tomorrow for an appointment. Take the CD of the CAT scan with you to that appointment. Return for new or worsening symptoms or if pain is uncontrolled.
[2018-05-13 17:40] LABS: BASOPHILS # (AUTO) 0.1 10^3/uL (0.0-0.1); BASOPHILS % (AUTO) 0.9 %; EOSINOPHILS # (AUTO) 0.8 10^3/uL (0.0-0.7); EOSINOPHILS % (AUTO) 8.6 %; LYMPHOCYTES # (AUTO) 2.3 10^3/uL (1.5-3.5); LYMPHOCYTES % (AUTO) 24.4 %; MEAN CORPUSCULAR HEMOGLOBIN 29.4 pg (27.0-31.0); MEAN CORPUSCULAR VOLUME 88.9 fL (81.0-99.0); MEAN PLATELET VOLUME 7.6 fL (7.9-10.8); MONOCYTES # (AUTO) 0.7 10^3/uL (0.0-1.0); NEUTROPHILS # (AUTO) 5.5 10^3/uL (1.5-6.6); NEUTROPHILS % (AUTO) 59.1 %; PLT - PLATELET COUNT 278 10^3/uL (130-450); RED CELL DISTRIBUTION WIDTH 15.7 % (12.0-15.0); WHITE BLOOD COUNT 9.3 x10^3/uL (4.8-10.8)
[2018-05-13] MEDS ORDERED: HYDROmorphone 1 MG/ML CARPUJECT IM STA ×2 (18:05→20:08)
[2018-05-13 18:09] LABS: MUDS CUTOFF CONCENTRATIONS CUTOFF CONC BELOW:
[2018-05-13 18:11] LABS: BILIRUBIN,URINE NEGATIVE (NEGATIVE); GLUCOSE, URINE (UA) NEGATIVE (NEGATIVE); KETONES,URINE (UA) NEGATIVE (NEGATIVE); LEUKOCYTE ESTERASE, URINE NEGATIVE (NEGATIVE); NITRITE,URINE NEGATIVE (NEGATIVE); OCCULT BLOOD,URINE NEGATIVE (NEGATIVE); PROTEIN,URINE NEGATIVE (NEGATIVE); UROBILINOGEN,URINE 0.2 (NORMAL) E.U./dL (NORMAL)
[2018-05-13 18:13] LABS: CLARITY,URINE CLEAR (CLEAR)
[2018-05-13 18:21] LABS: AMPHETAMINE SCREEN,URINE NEGATIVE (NEGATIVE); BENZODIAZEPINES SCREEN, URINE NEGATIVE (NEGATIVE); COCAINE SCREEN URINE NEGATIVE (NEGATIVE); METHADONE SCREEN, URINE NEGATIVE (NEGATIVE); METHAMPHETAMINES SCREEN, URINE NEGATIVE (NEGATIVE); OPIATE SCREEN, URINE POSITIVE (NEGATIVE); OXYCODONE SCREEN, URINE NEGATIVE (NEGATIVE); PROPOXYPHENE SCREEN, URINE NEGATIVE (NEGATIVE); TRICYCLIC ANTIDEPRESSANT,URINE NEGATIVE (NEGATIVE)
[2018-05-13 18:22] LABS: ALBUMIN 3.7 g/dL (3.2-5.5); ALBUMIN/GLOBULIN RATIO 1.3 (1.0-2.2); BILIRUBIN,TOTAL 0.3 mg/dL (0.2-1.0); CALCIUM 8.8 mg/dL (8.5-10.3); CREATININE 1.1 mg/dL (0.4-1.0); TOTAL PROTEIN 6.6 g/dL (6.7-8.2)
--- NOTE | 2018-05-13 19:11 | CT Report ---
Reason: R flank pain Procedure Date: 05/13/2018 Accession Number: [id number] / [id number] Procedure: CT - Abdomen/Pelvis W/O CPT Code: FULL RESULT: EXAM: CT ABDOMEN AND PELVIS (CT KUB) EXAM DATE: 05/13/2018 06:25 PM. CLINICAL HISTORY: Right-sided flank pain. COMPARISONS: None. TECHNIQUE: Routine axial helical CT imaging was performed through the abdomen and pelvis without IV contrast. Reconstructions: Coronal and sagittal. In accordance with CT protocol optimization, one or more of the following dose reduction techniques were utilized for this exam: automated exposure control, adjustment of mA and/or KV based on patient size, or use of iterative reconstructive technique. FINDINGS: Lung Bases: Atelectatic changes noted at the lung bases. Right Kidney/Ureter: There is mild right-sided hydronephrosis, secondary to a proximal ureteric stone measuring up to 6 mm. There is an additional 3 mm stone in the renal pelvis of the lower pole. Left Kidney/Ureter: No stones, hydronephrosis, or hydroureter. No perinephric fat stranding. Other Solid Organs: Noncontrast images of the solid organs are grossly unremarkable. Gallbladder/Bile Ducts: Unremarkable. Peritoneal Cavity: No free fluid, free air or apolinar adenopathy. Bowel is grossly unremarkable. Appendix not conclusively identified. Pelvic Organs: Urinary bladder is grossly unremarkable. Uterus is not well seen. No adnexal masses are present. Vasculature: Unremarkable. Other: Mild bony degenerative changes present. There are bilateral fat-containing inguinal hernias. IMPRESSION: 1. Mild right-sided hydronephrosis secondary to a proximal ureteric stone measuring 6 mm. There is an additional 3 mm stone in the lower pole of the right renal pelvis. 2. Mild bony degenerative changes seen. Bilateral fat-containing inguinal hernias noted. 3. Uterus not conclusively seen. RADIA
[2018-05-13] MEDS ORDERED: TAMSULOSIN 0.4 MG CAPSULE PO STA (19:20)
[2018-05-13] MEDS ORDERED: KETOROLAC 30 MG/ML VIAL IVP STA (19:20)
[2018-05-13] MEDS ORDERED: SODIUM CHLORIDE 0.9% 1,000 ML IV ONE (19:20)
[2018-05-13] MEDS ORDERED: HYDROmorphone 1 MG/ML CARPUJECT IVP STA (19:20)
[2018-05-13 20:24] VITALS: BP 137/76
[2018-05-13] MEDS ORDERED: oxyCODONE/ACET 5/325 Prepack 4 PO STA (20:38)
== END 2018-05-13 21:10 | disposition home or self-care (01) ==
LOC: ED 16:59
DX: N13.2 Hydronephrosis with renal and ureteral calculous obstruction (principal); I11.0 Hypertensive heart disease with heart failure; I50.9 Heart failure, unspecified; E03.9 Hypothyroidism, unspecified
CPT/HCPCS: 36415; 51798; 74176; 80053; 81003; 83605; 83690; 85025; 96372; 99283; 99284; A9270; J1170; 80306; 80320; 81001; 87086

== ENCOUNTER 2018-05-15 17:43 | Emergency (ER) | payer MEDICARE, MEDICAID ==
[2018-05-15] MEDS ORDERED: HYDROmorphone 2 MG/ML VIAL IM STA (18:14)
--- NOTE | 2018-05-15 18:16 | ED Physician Documentation ---
History of Present Illness - Stated complaint Stated Complaint: ABD PX - Chief complaint Chief Complaint: Abd Pain - History obtained from History obtained from: Patient, Family - History of Present Illness Timing: How many days ago (several) Pain level max: 10 Pain level now: 10 - Additonal information Additional information: Right-sided ureteral stone diagnosed a few days ago. Continuing pain. States Percocet is not helping. Requesting Dilaudid IM for pain. No fevers. No vomiting. 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 : None HEENT: None Psych: Depression, Anxiety, Bipolar disorder Musculoskeletal: Osteoarthritis, Fibromyalgia Derm: None - Past Surgical History Past Surgical History: Yes Ortho: Arthroscopic surgery /LIFT BUILDER WHOLE: section, Hysterectomy, Oophrectomy, Breast reduction HEENT: Tonsil/Adenoidectomy - Present Medications Home Medications: Ambulatory Orders Medication Instructions Recorded Confirmed Escitalopram [Lexapro] 20 mg PO DAILY 04/01/14 05/15/18 Estrogens, Conjugated [Premarin] 1.25 mg PO DAILY 04/01/14 05/15/18 Gabapentin 200 mg PO TID 11/25/16 05/15/18 busPIRone [Buspar] 10 mg PO BID 03/13/17 05/15/18 Celecoxib 300 mg PO BID 03/10/18 05/15/18 Tizanidine HCl 4 mg PO TID PRN 03/10/18 05/15/18 Acetaminophen [Tylenol] 650 mg PO Q4HR PRN tablet 03/19/18 03/20/18 Amlodipine Besylate [Norvasc] 10 mg PO DAILY #30 tablet 03/19/18 05/15/18 Oxycodone HCl/Acetaminophen 1 - 2 each PO Q6H PRN #14 tablet 05/13/18 05/15/18 [Percocet 5-325 mg Tablet] Tamsulosin [Flomax] 0.4 mg PO DAILY #14 capsule 05/13/18 05/15/18 Levothyroxine [Synthroid] 100 mcg PO QDAC 05/15/18 05/15/18 Oxycodone HCl/Acetaminophen 1 - 2 each PO Q6H PRN #14 tablet 05/15/18 [Percocet 5-325 mg Tablet] - Allergies Allergies/Adverse Reactions: Allergies Allergy/AdvReac Type Severity Reaction Status Date / Time chlorpromazine HCl * Allergy Unknown Verified 05/13/18 17:22 [From Thorazine] droperidol [From Inapsine] Allergy Unknown Verified 05/13/18 17:22 ketorolac tromethamine * Allergy Unknown Verified 05/13/18 17:22 [From Toradol] meperidine HCl * Allergy Unknown Verified 05/13/18 17:22 [From Demerol] metoclopramide HCl * Allergy Unknown Verified 05/13/18 17:22 [From Reglan] morphine Allergy Unknown Verified 05/13/18 17:22 prochlorperazine edisylate * Allergy Unknown Verified 05/13/18 17:22 [From Compazine] prochlorperazine maleate * Allergy Unknown Verified 05/13/18 17:22 [From Compazine] [id number] Antimigraine Allergy Unknown Verified 05/13/18 17:22 Agents lorazepam [From Ativan] AdvReac Anxiety Verified 05/15/18 17:55 - Social History Does the pt smoke?: No Smoking Status: Never smoker Does the pt drink ETOH?: No Does the pt have substance abuse?: No - Immunizations Immunizations are current?: Yes Immunizations: TDAP current <10years, Other immun not current - POLST Patient has POLST: No POLST Status: Full Code PD ED PE NORMAL - Vitals Vital signs reviewed: Yes - General General: Alert and oriented X 3, No acute distress, Well developed/nourished - HEENT HEENT: PERRL, Moist mucous membranes - Neck Neck: Supple, no meningeal sign - Cardiac Cardiac: RRR, Strong equal pulses - Respiratory Respiratory: No respiratory distress, Clear bilaterally - Abdomen Abdomen: Soft, Non tender, Non distended - Back Back: No CVA TTP, No spinal TTP - Derm Derm: Warm and dry, No rash - Extremities Extremities: No calf tenderness / cord - Neuro Neuro: Alert and oriented X 3 - Psych Psych: Normal mood, Normal affect Results - Vitals Vitals: Vital Signs - 24 hr 05/15/18 05/15/18 05/15/18 17:50 18:53 19:16 Temperature 36.0 C L 36.4 C L Heart Rate 106 H 92 88 Respiratory 18 18 18 Rate Blood Pressure 168/109 H 161/105 H 160/99 H O2 Saturation 96 92 93 Oxygen O2 Source [Without Activity] Room air O2 Source Room air PD MEDICAL DECISION MAKING - ED course Complexity details: reviewed old records, considered differential, d/w patient ED course: Pain controlled with IM Dilaudid. Will prescribe a small amount of Percocet for home. Will follow up with her doctor for further care and pain medication refills. Patient does have a 6 mm right ureteral stone. patient counseled regarding signs and symptoms for which I believe and urgent re-evaluation would be necessary. Patient with good understanding of and agreement to plan and is comfortable going home at this time This document was made in part using voice recognition software. While efforts are made to proofread this document, sound alike and grammatical errors may occur. Departure - Departure Disposition: Home, Self Care Clinical Impression: Ureteral stone Condition: Good Instructions: ED Stone Renal W Colic Follow-Up: Samy Henry DO [Primary Care Provider] - Within 1 week Prescriptions: Oxycodone HCl/Acetaminophen [Percocet 5-325 mg Tablet] 1 - 2 each PO Q6H PRN #14 tablet PRN Reason: pain Comments: Use your pain medications as prescribed at home. Return if you worsen. Discharge Date/Time: 05/15/18 19:16
[2018-05-15 19:17] VITALS: BP 160/99
== END 2018-05-15 19:16 | disposition home or self-care (01) ==
LOC: ED 17:43
DX: N20.1 Calculus of ureter (principal); I10 Essential (primary) hypertension
CPT/HCPCS: 96374; 99283; 99284; J1170

== ENCOUNTER 2018-06-07 07:28 | Outpatient (CLI) | payer MEDICARE, MEDICAID | END 2018-06-07 07:29 | disposition critical access hospital (66) | LOC: EMS 07:28 | PROVIDERS: ATTEND Surgery | DX: R06.00 Dyspnea, unspecified (principal) | CPT/HCPCS: A0425; A0427 ==

== ENCOUNTER 2018-06-07 07:56 | Inpatient (IN) | payer MEDICARE, MEDICAID ==
[2018-06-07] MEDS ORDERED: IPRATROPIUM/ALBUTEROL 3 ML NEB INH STA (08:26)
[2018-06-07] MEDS ORDERED: SODIUM CHLORIDE 0.9% 1,000 ML IV ONE (08:38)
--- NOTE | 2018-06-07 08:46 | ED Physician Documentation ---
PD HPI URI - Stated complaint Stated Complaint: SOA - Chief complaint Chief Complaint: Resp - History obtained from History obtained from: Patient, EMS - History of Present Illness Timing - onset: How many weeks ago (1) Timing details: Gradual onset Pain level max: 8 Pain level now: 8 Associated symptoms: Fever, Chills, Nasal congestion, Rhinorrhea, Dry cough, Dyspnea (Wheezing) Contributing factors: Sick contact Improves by: Rest, MDI/nebulizer Worsened by: Activity, Breathing - Additional information Additional information: no flu shot this year Review of Systems Ten Systems: 10 systems reviewed and negative Constitutional: reports: Fever, Myalgias Nose: reports: Rhinorrhea / runny nose, Congestion Skin: denies: Rash Musculoskeletal: denies: Neck pain, Back pain Neurologic: denies: Headache PD PAST MEDICAL HISTORY - Past Medical History Past Medical History: Yes Cardiovascular: Congestive heart failure, Hypertension Respiratory: Asthma, Shortness of breath Neuro: Migraines, Seizure disorder Endocrine/Autoimmune: HyPOthyroidism, Other GI: None 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 : None HEENT: None Psych: Depression, Anxiety, Bipolar disorder Musculoskeletal: Osteoarthritis, Fibromyalgia Derm: None - Past Surgical History Past Surgical History: Yes Ortho: Arthroscopic surgery /LOANS CONSULTANT: section, Hysterectomy, Oophrectomy, Breast reduction HEENT: Tonsil/Adenoidectomy - Present Medications Home Medications: Ambulatory Orders Medication Instructions Recorded Confirmed Escitalopram [Lexapro] 20 mg PO DAILY 04/01/14 06/07/18 Estrogens, Conjugated [Premarin] 1.25 mg PO DAILY 04/01/14 06/07/18 Gabapentin 300 mg PO TID 11/25/16 06/07/18 busPIRone [Buspar] 10 mg PO DAILY 03/13/17 06/07/18 Celecoxib 200 mg PO BID 03/10/18 06/07/18 Tizanidine HCl 4 mg PO TID PRN 03/10/18 06/07/18 Acetaminophen [Tylenol] 650 mg PO Q4HR PRN tablet 03/19/18 06/07/18 Amlodipine Besylate [Norvasc] 10 mg PO DAILY #30 tablet 03/19/18 06/07/18 Tamsulosin [Flomax] 0.4 mg PO DAILY #14 capsule 05/13/18 06/07/18 Levothyroxine [Synthroid] 100 mcg PO QDAC 05/15/18 06/07/18 Benzonatate [Tessalon Perle] 100 mg PO TID 06/07/18 06/07/18 Butalb/Acetaminophen/Caffeine 1 each PO Q4H PRN 06/07/18 06/07/18 [[id number]-Wafk 50-325-40] Butorphanol Tartrate 1 - 2 sprays NS Q8H PRN 06/07/18 06/07/18 Hydrocodone/Acetaminophen 1 each PO QID PRN 06/07/18 06/07/18 [Hydrocodon-Acetaminophn 10-325] - Allergies Allergies/Adverse Reactions: Allergies Allergy/AdvReac Type Severity Reaction Status Date / Time chlorpromazine HCl * Allergy Unknown Verified 05/13/18 17:22 [From Thorazine] droperidol [From Inapsine] Allergy Unknown Verified 05/13/18 17:22 ketorolac tromethamine * Allergy Unknown Verified 05/13/18 17:22 [From Toradol] meperidine HCl * Allergy Unknown Verified 05/13/18 17:22 [From Demerol] metoclopramide HCl * Allergy Unknown Verified 05/13/18 17:22 [From Reglan] morphine Allergy Unknown Verified 05/13/18 17:22 prochlorperazine edisylate * Allergy Unknown Verified 05/13/18 17:22 [From Compazine] prochlorperazine maleate * Allergy Unknown Verified 05/13/18 17:22 [From Compazine] [id number] Antimigraine Allergy Unknown Verified 05/13/18 17:22 Agents lorazepam [From Ativan] AdvReac Anxiety Verified 05/15/18 17:55 - Social History Does the pt smoke?: No Smoking Status: Former smoker Does the pt drink ETOH?: No Does the pt have substance abuse?: No - Immunizations Immunizations are current?: Yes Immunizations: TDAP current <10years, Other immun not current - POLST Patient has POLST: No POLST Status: Full Code PD ED PE NORMAL - Vitals Vital signs reviewed: Yes - General General: Alert and oriented X 3, No acute distress, Well developed/nourished - HEENT HEENT: PERRL, Ears normal, Moist mucous membranes, Pharynx benign - Neck Neck: Supple, no meningeal sign - Cardiac Cardiac: RRR - Respiratory Respiratory: No respiratory distress, Other (End expiratory wheeze bilaterally) - Abdomen Abdomen: Soft, Non tender, Non distended - Derm Derm: Warm and dry, No rash - Extremities Extremities: No calf tenderness / cord - Neuro Neuro: Alert and oriented X 3 - Psych Psych: Normal mood, Normal affect Results - Vitals Vitals: Vital Signs - 24 hr 06/07/18 06/07/18 06/07/18 08:04 08:37 09:27 Temperature 37.7 C H 37.6 C H Heart Rate 74 74 76 Respiratory 24 14 18 Rate Blood Pressure 134/70 H 114/50 L O2 Saturation 94 95 06/07/18 06/07/18 06/07/18 09:56 09:57 10:27 Temperature Heart Rate 76 Respiratory 18 Rate Blood Pressure O2 Saturation 82 L 94 Oxygen O2 Source [Without Activity] Room air O2 Source Nasal cannula Oxygen Flow Rate 3 - Labs Labs: Laboratory Tests 06/07/18 06/07/18 06/07/18 08:39 08:53 08:53 WBC 8.8 RBC 3.90 L Hgb 11.4 L Hct 34.8 L MCV 89.2 MCH 29.3 MCHC 32.9 RDW 15.2 H Plt Count 189 MPV 7.5 L Neut # (Auto) 6.7 H Lymph # (Auto) 1.3 L [place] # (Auto) 0.6 Eos # (Auto) 0.2 Baso # (Auto) 0.0 Absolute Nucleated RBC 0.00 Nucleated RBC % 0.0 Sodium 136 Potassium 3.6 Chloride 100 L Carbon Dioxide 26 Anion Gap 10.0 BUN 16 Creatinine 1.5 H Estimated GFR (MDRD) 36 L Glucose 150 H Lactic Acid Calcium 8.5 Total Bilirubin 0.4 AST 32 ALT 32 Alkaline Phosphatase 56 Total Protein 6.4 L Albumin 3.4 Globulin 3.0 Albumin/Globulin Ratio 1.1 Lipase 20 L Urine Color Urine Clarity Urine pH Ur Specific [place] Urine Protein Urine Glucose (UA) Urine Ketones Urine Occult Blood Urine Nitrite Urine Bilirubin Urine Urobilinogen Ur Leukocyte Esterase Urine RBC Urine WBC Ur Squamous Epith Cells Urine Bacteria Ur Microscopic Review Urine Culture Comments Influenza A (Rapid) POSITIVE H Influenza B (Rapid) Negative 06/07/18 06/07/18 08:53 09:30 WBC RBC Hgb Hct MCV MCH MCHC RDW Plt Count MPV Neut # (Auto) Lymph # (Auto) [place] # (Auto) Eos # (Auto) Baso # (Auto) Absolute Nucleated RBC Nucleated RBC % Sodium Potassium Chloride Carbon Dioxide Anion Gap BUN Creatinine Estimated GFR (MDRD) Glucose Lactic Acid 1.0 Calcium Total Bilirubin AST ALT Alkaline Phosphatase Total Protein Albumin Globulin Albumin/Globulin Ratio Lipase Urine Color YELLOW Urine Clarity CLEAR Urine pH 5.5 Ur Specific [place] 1.025 Urine Protein NEGATIVE Urine Glucose (UA) NEGATIVE Urine Ketones TRACE Urine Occult Blood NEGATIVE Urine Nitrite NEGATIVE Urine Bilirubin NEGATIVE Urine Urobilinogen 0.2 (NORMAL) Ur Leukocyte Esterase TRACE H Urine RBC 0-5 Urine WBC 0-3 Ur Squamous Epith Cells FEW Squamous Urine Bacteria Few Ur Microscopic Review INDICATED Urine Culture Comments INDICATED Influenza A (Rapid) Influenza B (Rapid) - Rads (name of study) cxr Radiology: Prelim report reviewed, EMP read contemporaneously, See rad report (Limited examination with right lower lung consolidation, positive for pneumonia) PD MEDICAL DECISION MAKING - ED course Complexity details: reviewed results, re-evaluated patient, considered differential, d/w patient, d/w proposal consultant ED course: Patient stood at bedside and O2 sat dropped to 82 percent on room air. Placed ba ck on O2. 57-year-old female with COPD flare, pneumonia, influenza A. She is also hypoxic. Not improved significantly with nebulizer treatment. Given Rocephin and doxycycline due to interactions with her other medications with azithromycin. Will admit for further care. Discussed the case with Dr. Johnson, hospitalist who accepts. This document was made in part using voice recognition software. While efforts are made to proofread this document, sound alike and grammatical errors may occur. Departure - Departure Disposition: [facility] DC/Xfer Clinical Impression: COPD exacerbation, Influenza A, Hypoxia Pneumonia Qualifiers: Pneumonia type: due to unspecified organism Laterality: right Lung location: lower lobe of lung Qualified Code(s): J18.1 - Lobar pneumonia, unspecified organism Condition: Stable Discharge Date/Time: 06/07/18 11:40
[2018-06-07] MEDS ORDERED: oxyCODONE 5 MG TABLET PO STA (08:47)
[2018-06-07 08:57] LABS: BASOPHILS % (AUTO) 0.4 %; EOSINOPHILS # (AUTO) 0.2 10^3/uL (0.0-0.7); EOSINOPHILS % (AUTO) 2.6 %; HGB - HEMOGLOBIN 11.4 g/dL (12.0-16.0); LYMPHOCYTES # (AUTO) 1.3 10^3/uL (1.5-3.5); LYMPHOCYTES % (AUTO) 14.6 %; MEAN CORPUSCULAR HEMOGLOBIN 29.3 pg (27.0-31.0); MEAN CORPUSCULAR HGB CONC 32.9 g/dL (32.0-36.0); MEAN CORPUSCULAR VOLUME 89.2 fL (81.0-99.0); MEAN PLATELET VOLUME 7.5 fL (7.9-10.8); MONOCYTES # (AUTO) 0.6 10^3/uL (0.0-1.0); MONOCYTES % (AUTO) 6.7 %; NEUTROPHILS # (AUTO) 6.7 10^3/uL (1.5-6.6); NEUTROPHILS % (AUTO) 75.7 %; PLT - PLATELET COUNT 189 10^3/uL (130-450); RED CELL DISTRIBUTION WIDTH 15.2 % (12.0-15.0); WHITE BLOOD COUNT 8.8 x10^3/uL (4.8-10.8)
[2018-06-07 09:11] LABS: ALBUMIN 3.4 g/dL (3.2-5.5); ALBUMIN/GLOBULIN RATIO 1.1 (1.0-2.2); BILIRUBIN,TOTAL 0.4 mg/dL (0.2-1.0); CALCIUM 8.5 mg/dL (8.5-10.3); CREATININE 1.5 mg/dL (0.4-1.0); TOTAL PROTEIN 6.4 g/dL (6.7-8.2)
--- NOTE | 2018-06-07 09:35 | XRAY Report ---
Reason: fever, cough Procedure Date: 06/07/2018 Accession Number: [id number] / [id number] Procedure: XR - Chest 2 View X-Ray CPT Code: 07770 FULL RESULT: EXAM: CHEST RADIOGRAPHY EXAM DATE: 06/07/2018 09:26 AM. CLINICAL HISTORY: Fever, cough. COMPARISON: CHEST FOR LINE PLACEMENT 03/19/2018 9:44 AM CHEST FOR LINE PLACEMENT 03/10/2018 3:29 AM CHEST 2 VIEW PA/LAT 03/13/2017 12:49 PM CHEST 2 VIEW PA/LAT 08/18/2016 4:09 PM. TECHNIQUE: 2 views. FINDINGS: Examination is limited by underpenetration and low lung volumes. Lungs/Pleura: Right lower lobe consolidation, new. No large pleural effusion or pneumothorax. Mediastinum: Heart and mediastinal contours are unremarkable. Other: None. IMPRESSION: Limited examination with right lower lung consolidation, positive for pneumonia. RADIA
[2018-06-07] MEDS ORDERED: DOXYCYCLINE 100 MG TABLET PO STA (09:46)
[2018-06-07] MEDS ORDERED: cefTRIAXone 1 GM VIAL IVP STA (09:46)
[2018-06-07 09:59] LABS: BILIRUBIN,URINE NEGATIVE (NEGATIVE); CLARITY,URINE CLEAR (CLEAR); GLUCOSE, URINE (UA) NEGATIVE (NEGATIVE); KETONES,URINE (UA) TRACE mg/dL (NEGATIVE); LEUKOCYTE ESTERASE, URINE TRACE (NEGATIVE); NITRITE,URINE NEGATIVE (NEGATIVE); OCCULT BLOOD,URINE NEGATIVE (NEGATIVE); PH,URINE 5.5 PH (5.0-7.5); PROTEIN,URINE NEGATIVE (NEGATIVE); UROBILINOGEN,URINE 0.2 (NORMAL) E.U./dL (NORMAL)
[2018-06-07] MEDS ORDERED: ALBUTEROL NEB 2.5 MG/3 ML INH STA (10:05)
[2018-06-07] MEDS ORDERED: methylPREDNISolone SUCCINATE 125 MG/2 ML VIAL IVP STA (10:05)
[2018-06-07 10:13] LABS: RBC,URINE 0-5 /HPF (0-5); SQUAMOUS EPITHELIAL CELL,UR FEW Squamous (<= Few)
[2018-06-07 10:14] LABS: BACTERIA,URINE Few /HPF (None Seen)
[2018-06-07] MEDS ORDERED: ACETAMINOPHEN 325 MG TABLET PO PRN (10:41)
[2018-06-07] MEDS ORDERED: ONDANSETRON ODT 4 MG TABLET TL PRN (10:41)
[2018-06-07] MEDS ORDERED: ONDANSETRON 4 MG/2 ML VIAL IVP STA (10:49)
[2018-06-07] MEDS ORDERED: HYDROmorphone 1 MG/ML CARPUJECT IVP STA (10:49)
--- NOTE | 2018-06-07 11:06 | HISTORY & PHYSICAL EXAMINATION ---
Chief Complaint - Chief Complaint Chief Complaint: Severe myalgias, fatigue, cough with anorexia for a week History of Present Illness - Admitted From Admitted From:: Home/ER - History Obtained From Records Reviewed: [facility] History obtained from: Dr. Watson and patient and [employer] Exam Limitations: None - History of Present Illness HPI Comment/Other: This is an ex-tobacco user who smoked 1 pack/day for 30 years and quit approximately 2013. She moved to [facility] in 2013 from [place]. And her first hospitalization with us for COPD was August 2016. She does have visits to the emergency room for previous history of pneumonia, cough, shortness of breath. She is not on home O2. As already stated her first admission was August 2016 for COPD exacerbation. Her next admission was February 2018 for dizziness, weakness to the point of sliding to the floor associated with sepsis from a UTI and E. coli bacteremia. She did have acute respiratory failure with hypercapnia and hypoxia during that admission. She was not felt to have a pneumonia during that admission. Chest x-ray mainly showed cardiomegaly, and pulmonary vascular congestion. She has never been intubated for her COPD. She is not on chronic steroids. She now presents with gradual onset of 1 week of fever, chills, nasal congestion, rhinorrhea, a dry nonproductive cough, with wheezing. Other family member, grandson, in her home was sick with the same thing. As long as she sits still and takes her nebulizer her wheezing will stay controlled but when she gets up to even do simple activities such as walking to go to the bathroom, she gets very short of breath. When all of the started she just hurt all over, and felt like she had a high fever. Appetite is down. No diarrhea. In the emergency room temperature was 37.6, heart rate was 76. Blood pressure 114/50 and she has gone down to 82% on room air. Requires 3 L to be 94% on room air. She has diffuse wheezing on lung exam. And chest x-ray shows a right lower lobe consolidation. She has mild dehydration with her creatinine up to 1.5. She has been as high as 2.7 or 2.8 with a creatinine. Baseline is 0.8- 0.9. White cell count was as high as 16.9 in March 2018 and she is 8.8 today. We are now admitting her for pneumonia, and COPD exacerbation. History - Past Medical History Cardiovascular: reports: Congestive heart failure, Hypertension Respiratory: reports: Asthma, Shortness of breath Neuro: reports: Migraines, Seizure disorder (last seizure ) Endocrine/Autoimmune: reports: HyPOthyroidism, Other GI: reports: Other (Irritable bowel syndrome. She will not have a bowel movement for a week and then have a day of diarrhea. Chronic and unchanged for years.) POURER OFF: reports: Other () : reports: Incontinence HEENT: reports: None Psych: reports: Depression (Long history of depression. When she moved here in 2013 she does not know what happened but she kind of loss and emotionally. She has had 2 suicide attempts. She looks back on that time and wonders what was going on through her head because she feels so stable and feels very good about her life right now.), Anxiety, Bipolar disorder Musculoskeletal: reports: Osteoarthritis, Fibromyalgia, Chronic back pain Derm: reports: Other (Intermittent Anne-Marie intertrigo in the pannus of her abdomen. She treats it with keeping it dry, and occasional antifungal cream) MRSA Hx?: Yes - Past Surgical History Ortho: reports: Arthroscopic surgery /POURER OFF: reports: section, Hysterectomy, Oophrectomy, Breast reduction HEENT: reports: Tonsil/Adenoidectomy - Family & Social History Family History Comment/Other: Mom at age 63 of a massive heart attack. She never knew her father. Her only sibling, sister, walked into traffic to kill herself in the [facility]. 5 kids. One daughter is psyc hotic and abusive. Obesity. But no high blood pressure, cancer, heart attack, stroke, diabetes. Living arrangement: At home Living Situation: Alone Social History Notes: She was raised in the [facility] in [place]. With her mother and father split up that when she moved to [place] because her mother's family was here. She had the rest of her life in [place] until she moved here in 2013. 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 She is from her first . She was and in the midst of getting a divorce from her second when he of a seizure. She was living in a rental home when it got sold. She put everything in storage and went to go live in a woman's group home. This was in 2013. Her oldest daughter said to move up to here and that is when she came to [facility] in 2013. She started smoking at the age of 31 and smoked until about 2013. She would stop smoking when she was . She smoked 1 pack/day. She has no history of alcohol abuse. No history of recreational substance abuse. - Substance History Use: Uses substance without health or social issues: NONE (History of tobacco use 1PPD for over 30 years, history of alcohol use quit everything 2.5 years ago.) Abuse: Recurrent use of substance despite neg consequences: NONE Dependence: Experiences withdrawal or developed tolerances: NONE - POLST Patient has POLST: No POLST Status: Full Code (Daughter is her DURABLE POWER [employer]CH[employer]IC APPRENTICE. She would like to be full code, but if there is significant cognitive deficits as a result of her illnesses, she wants us to let her go.) Meds/Allgy - Home Medications Home Medications: Ambulatory Orders Medication Instructions Recorded Confirmed Escitalopram [Lexapro] 20 mg PO DAILY 04/01/14 06/07/18 Estrogens, Conjugated [Premarin] 1.25 mg PO DAILY 04/01/14 06/07/18 Gabapentin 300 mg PO TID 11/25/16 06/07/18 busPIRone [Buspar] 10 mg PO DAILY 03/13/17 06/07/18 Celecoxib 200 mg PO BID 03/10/18 06/07/18 Tizanidine HCl 4 mg PO TID PRN 03/10/18 06/07/18 Acetaminophen [Tylenol] 650 mg PO Q4HR PRN tablet 03/19/18 06/07/18 Amlodipine Besylate [Norvasc] 10 mg PO DAILY #30 tablet 03/19/18 06/07/18 Tamsulosin [Flomax] 0.4 mg PO DAILY #14 capsule 05/13/18 06/07/18 Levothyroxine [Synthroid] 100 mcg PO QDAC 05/15/18 06/07/18 Benzonatate [Tessalon Perle] 100 mg PO TID 06/07/18 06/07/18 Butalb/Acetaminophen/Caffeine 1 each PO Q4H PRN 06/07/18 06/07/18 [Qndtnt-Zradfzmp-Pems 50-325-40] Butorphanol Tartrate 1 - 2 sprays NS Q8H PRN 06/07/18 06/07/18 Hydrocodone/Acetaminophen 1 each PO QID PRN 06/07/18 06/07/18 [Hydrocodon-Acetaminophn 10325] - Allergies Allergies/Adverse Reactions: Allergies Allergy/AdvReac Type Severity Reaction Status Date / Time chlorpromazine HCl * Allergy Unknown Verified 05/13/18 17:22 [From Thorazine] droperidol [From Inapsine] Allergy Unknown Verified 05/13/18 17:22 ketorolac tromethamine * Allergy Unknown Verified 05/13/18 17:22 [From Toradol] meperidine HCl * Allergy Unknown Verified 05/13/18 17:22 [From Demerol] metoclopramide HCl * Allergy Unknown Verified 05/13/18 17:22 [From Reglan] morphine Allergy Unknown Verified 05/13/18 17:22 prochlorperazine edisylate * Allergy Unknown Verified 05/13/18 17:22 [From Compazine] prochlorperazine maleate * Allergy Unknown Verified 05/13/18 17:22 [From Compazine] [id number] Antimigraine Allergy Unknown Verified 05/13/18 17:22 Agents lorazepam [From Ativan] AdvReac Anxiety Verified 05/15/18 17:55 Review of Systems - Constitutional Constitutional: reports: Fatigue, Fever, Chills, Malaise, Poor appetite, Night sweats - Eyes Eyes: denies: Pain, Irritation, Amaurosis, Blurred vision, Field loss, Vision loss - Ears, Nose & Throat Ears, Nose & Throat: reports: Nasal obstruction, Nasal congestion, Postnasal drainage, Sore throat, Hoarseness. denies: Ear pain, Hearing loss, Hearing aids, Dentures - Cardiovascular Cariovascular: reports: Exertional dyspnea, Decr. exercise tolerance. denies: Irregular heart rate, Palpitations, Chest pain, Edema, Syncope - Respiratory Respiratory: reports: Cough, Wheezing, SOB at rest, SOB with exertion. denies: Sputum production, Snoring, Orthopnea - Gastrointestinal Gastrointestinal: reports: Diarrhea (About once every 5-7 days). denies: Abdominal pain, Abdominal distention, Constipation, Change in bowel habits, Rectal bleeding, Black stools, Bloody stools, Nausea, Vomiting, Bile emesis - Genitourinary Genitourinary: reports: Incontinence, Nocturia. denies: Dysuria, Frequency, Urgency, Flank pain - Musculoskeletal Musculoskeletal: reports: Back pain, Muscle aches, Joint pain. denies: Muscle pain - Integumentary Integumentary: reports: Rash (With Anne-Marie intertrigo intermittently) - Neurological Neurological: reports: General weakness, Headache (Migraine headaches about once or twice a month. Much diminished in frequency since she moved to the [facility]. Last headache was in February when she was here for sepsis.), Memory problems (Since her admission for sepsis in the fall, sometimes she has word finding problems), Seizures (Last one in the ). denies: Numbness - Psychiatric Psychiatric: reports: Depression, Suicidal (last year, no longer at this time) - Endocrine Endocrine: denies: Polyuria, Polydypsia, Polyphagia - Hematologic/Lymphatic Hematologic/Lymphatic: denies: Anemia, Bruising, Petechiae Prior Level of Functionality: She lives alone. Does not have a car because she cannot afford one. But takes care of her own housework. Laundry. Daughter will take her grocery shopping. She is able to cook for herself. When she leaves how she does use a cane but inside her home does not need one. She pays her own bills. Exam - Vital Signs Reviewed Vital Signs: Yes Vital Signs: Vital Signs x48h Temp Pulse Resp BP Pulse Ox 06/07/18 10:27 76 18 06/07/18 09:57 94 06/07/18 09:56 82 L 06/07/18 09:27 37.6 C H 76 18 114/50 L 95 06/07/18 08:37 74 14 06/07/18 08:04 37.7 C H 74 24 134/70 H 94 - Physical Exam General Appearance: positive: No acute distress, Alert, Other (Severely obese white female at 5 foot 6 inches tall, 148 kg.) Eyes Bilateral: positive: PERRL, EOMI, Other (Conjunctiva pale and boggy) ENT: positive: Pharyngeal erythema, Dry mucous membranes, Other (Hoarse voice and nasal tone of voice) Neck: positive: No JVD, Lymphadenopathy (R), Lymphadenopathy (L). negative: Stiff neck, Carotid bruit Respiratory: positive: Chest non-tender, No respiratory distress, Wheezes. negative: Rales, Rhonchi Cardiovascular: positive: Regular rate & rhythm. negative: Gallop/S4, Friction rub Peripheral Pulses: positive: 1+ Abdomen: positive: Non-tender, Nml bowel sounds, No distention, Other (Super large abdominal pannus, the intertriginous fold shows hyperpigmentation of resolved Anne-Marie infections. Size of pannus prohibits ability to assess for organomegaly.). negative: Guarding, Rebound Skin: positive: Warm, Dry, Pallor Extremities: positive: Full ROM, Pedal edema Neurologic/Psychiatric: positive: Oriented x3, CN's nml (2-12), Motor nml, Weakness Sepsis Event Note (H) - Evaluation Current Stage of Sepsis: Ruled out Conclusion/Plan - Problem List (1) COPD exacerbation Conclusion/Plan: In a patient who is an ex-tobacco user. But never been intubated. She is not on any regular inhaled medication at home. Plan: Inpatient stay IV steroids every 6 hours x8 doses DuoNeb every 6 hours as needed Albuterol every 4 hours as needed Antibiotics to treat the pneumonia (2) Influenza Conclusion/Plan: tamiflu 75 mg po bid for 3-5 days. (3) Pneumonia Conclusion/Plan: Because of drug interaction, this patient is on Rocephin and doxycycline. Azithromycin will cause prolonged QT syndrome with some of the drug she is already on. Today is day #1. Blood cultures have been done. Plan: Continue antibiotics and adjust on the basis of blood culture results. Will order sputum culture Qualifiers: Pneumonia type: due to influenza A virus Laterality: right Lung location: lower lobe of lung Qualified Code(s): J11.00 - Influenza due to unidentified influenza virus with unspecified type of pneumonia (4) CKD (chronic kidney disease) stage 3, GFR 30-59 ml/min Conclusion/Plan: Since 2017 her kidney function seems to deteriorated from a baseline of 0.8-0.9. She is now consistently about 1.5 with an associated drop in GFR. This is not the worst creatinine she has had. She has been much higher last year. Plan: I will let her know that she may have a new diagnosis, needs to follow with primary care or a nephrology visit. Will avoid nephrotoxic drugs. I will also hydrate and see how she does (5) Hyperglycemia Conclusion/Plan: Glucose has been in the 100s-170s since 2013. She does not carry the diagnosis of diabetes. I anticipate her sugars will get worse secondary to steroids. Plan: Check A1c in the morning Consider metformin or low-dose sulfonylurea in the outpatient setting Sliding scale insulin at this time (6) Depressive disorder Conclusion/Plan: Resume BuStomasa, Tado (7) History of migraine headaches Conclusion/Plan: A single dose of opiates IV given would abort the episode. She cannot take sumatriptan's. At this point she is symptom-free. (8) Chronic pain disorder Conclusion/Plan: She is on disability for chronic back pain. She takes nonsteroidals, gabapentin and Tylenol to control her pain. Occasionally she uses a muscle relaxant. Chronic pain syndrome is from low back injuries due to her jobs, as well as fibromyalgia. Plan: Resume her usual medications, (9) History of MRSA infection Conclusion/Plan: last time she was positive was 15 years ago. Not since then. I don't think she needs to be in isolation. - Lab Results Fish Bones: 06/07/18 08:53 06/07/18 08:53 - Diagnostic Imaging Results Diagnostic Imaging Results: positive: Final report reviewed Diagnostic Imaging Results Comments: CHEST RADIOGRAPHY EXAM DATE: 06/07/2018 09:26 AM. CLINICAL HISTORY: Fever, cough. COMPARISON: CHEST FOR LINE PLACEMENT 03/19/2018 9:44 AM CHEST FOR LINE PLACEMENT 03/10/2018 3:29 AM CHEST 2 VIEW PA/LAT 03/13/2017 12:49 PM CHEST 2 VIEW PA/LAT 08/18/2016 4:09 PM. TECHNIQUE: 2 views. FINDINGS: Examination is limited by underpenetration and low lung volumes. Lungs/Pleura: Right lower lobe consolidation, new. No large pleural effusion or pneumothorax. Mediastinum: Heart and mediastinal contours are unremarkable. Other: None. IMPRESSION: Limited examination with right lower lung consolidation, positive for pneumonia. Core Measures - Anticipated LOS I expect patient to be DC'd or transferred within 96 hours.: Yes - DVT/VTE - Prophylaxis VTE/DVT Device ordered at admit?: Yes
[2018-06-07] MEDS: OSELTAMIVIR 75 MG CAPSULE PO SCH ×2 (12:17→20:13)
[2018-06-07] MEDS: SODIUM CHLORIDE FLUSH 0.9% 10 ML SYRINGE IVP PRN (12:18)
[2018-06-07] MEDS: tiZANidine 4 MG TABLET PO PRN ×2 (12:24→20:13)
[2018-06-07] MEDS: SODIUM CHLORIDE 0.9% 1,000 ML IV SCH ×2 (12:24→22:48)
[2018-06-07] MEDS: GABAPENTIN 300 MG CAPSULE PO SCH ×2 (13:43→22:44)
[2018-06-07] MEDS: oxyCODONE 5 MG TABLET PO PRN ×3 (13:43→22:44)
[2018-06-07] MEDS: BENZONATATE 100 MG CAPSULE PO SCH ×2 (16:34→22:44)
[2018-06-07] MEDS: SACCHAROMYCES BOULARDII 250 MG CAPSULE PO SCH (16:34)
[2018-06-07] MEDS: SODIUM CHLORIDE FLUSH 0.9% 10 ML SYRINGE IVP SCH (16:35)
[2018-06-07] MEDS: ACETAMINOPHEN 325 MG TABLET PO SCH ×2 (18:15→23:53)
[2018-06-07] MEDS: ALBUTEROL NEB 2.5 MG/3 ML INH PRN (19:43)
[2018-06-07] MEDS: CELECOXIB 100 MG CAPSULE PO SCH (20:13)
[2018-06-07] MEDS: DOXYCYCLINE 100 MG TABLET PO SCH (20:13)
[2018-06-07] MEDS ORDERED: IBUPROFEN 600 MG TABLET PO SCH (21:00)
[2018-06-08] MEDS: IBUPROFEN 600 MG TABLET PO SCH ×4 (02:46→20:40)
[2018-06-08] MEDS: ALBUTEROL NEB 2.5 MG/3 ML INH PRN ×2 (02:49→07:50)
[2018-06-08] MEDS: oxyCODONE 5 MG TABLET PO PRN ×4 (02:52→20:38)
[2018-06-08] MEDS: SODIUM CHLORIDE FLUSH 0.9% 10 ML SYRINGE IVP SCH ×3 (03:41→17:26)
[2018-06-08 05:48] LABS: BASOPHILS % (AUTO) 0.5 %; EOSINOPHILS % (AUTO) 0.1 %; HGB - HEMOGLOBIN 12.5 g/dL (12.0-16.0); LYMPHOCYTES # (AUTO) 0.9 10^3/uL (1.5-3.5); LYMPHOCYTES % (AUTO) 14.2 %; MEAN CORPUSCULAR HEMOGLOBIN 29.1 pg (27.0-31.0); MEAN CORPUSCULAR HGB CONC 32.8 g/dL (32.0-36.0); MEAN CORPUSCULAR VOLUME 88.9 fL (81.0-99.0); MEAN PLATELET VOLUME 7.5 fL (7.9-10.8); MONOCYTES # (AUTO) 0.4 10^3/uL (0.0-1.0); MONOCYTES % (AUTO) 7.2 %; NEUTROPHILS # (AUTO) 4.8 10^3/uL (1.5-6.6); PLT - PLATELET COUNT 216 10^3/uL (130-450); RED BLOOD COUNT 4.29 10^6/uL (4.20-5.40); RED CELL DISTRIBUTION WIDTH 15.1 % (12.0-15.0); WHITE BLOOD COUNT 6.1 x10^3/uL (4.8-10.8)
[2018-06-08 05:54] LABS: CALCIUM 8.8 mg/dL (8.5-10.3)
[2018-06-08 05:57] LABS: HB2 TOTAL 13.8 g/dL; HEMOGLOBIN A1C 0.53 g/dL; HEMOGLOBIN A1C % 5.7 % (4.6-6.2)
[2018-06-08] MEDS: ACETAMINOPHEN 325 MG TABLET PO SCH ×3 (06:10→17:26)
[2018-06-08] MEDS: GABAPENTIN 300 MG CAPSULE PO SCH ×3 (06:10→22:12)
[2018-06-08] MEDS: BENZONATATE 100 MG CAPSULE PO SCH ×3 (06:10→22:12)
[2018-06-08] MEDS: LEVOTHYROXINE 100 MCG TABLET PO SCH (06:10)
--- NOTE | 2018-06-08 07:38 | PROVIDER PROGRESS NOTE ---
Subjective - Prog Note Date Prog Note Date: 06/08/18 Prog Note Time: 17:01 - Subjective Pt reports feeling: Improved Subjective: no overnight report from healthcare analyst. no events. During the day she has been sleeping. Just miserable with overall myalgias and asked for Dilaudid for pain management. Toward the later afternoon she did decide she wanted to go home. But her daughter and I felt that she really was not ready to go. She still very tired, easily winded by just doing simple things getting up to go to the bathroom. T here is no one at home to take care of her. Current Medications - Current Medications Current Medications: Active Medications Acetaminophen (Tylenol) 650 mg PO Q6H [facility] Stop: 06/09/18 12:01 Last Admin: 06/08/18 06:10 Dose: 650 mg Albuterol () 2.5 mg INH Q4HR PRN PRN Reason: Wheezing Stop: 06/11/18 10:43 Last Admin: 06/08/18 02:49 Dose: 2.5 mg Amlodipine Besylate (Norvasc) 10 mg PO DAILY [facility] Benzonatate (Tessalon) 100 mg PO TID [facility] Last Admin: 06/08/18 06:10 Dose: 100 mg Buspirone HCl (Buspar) 10 mg PO DAILY [facility] Celecoxib (Celebrex) 200 mg PO BID [facility] Last Admin: 06/07/18 20:13 Dose: 200 mg Doxycycline Hyclate (Vibramycin) 100 mg PO BID [facility] Last Admin: 06/07/18 20:13 Dose: 100 mg Escitalopram Oxalate (Lexapro) 20 mg PO DAILY [facility] Gabapentin (Neurontin) 300 mg PO TID [facility] Last Admin: 06/08/18 06:10 Dose: 300 mg Ceftriaxone Sodium 2 gm/ (Sodium Chloride) 100 mls @ 200 mls/hr IV DAILY [facility] Ibuprofen (Motrin) 600 mg PO Q6H [facility] Stop: 06/09/18 15:01 Last Admin: 06/08/18 02:46 Dose: 600 mg Levothyroxine Sodium (Synthroid) 100 mcg PO QDAC [facility] Last Admin: 06/08/18 06:10 Dose: 100 mcg Methylprednisolone (Solu-Medrol (40mg Vial)) 40 mg IVP QID [facility] Stop: 06/09/18 17:01 Ondansetron HCl (Zofran Inj) 4 mg IVP Q6HR PRN PRN Reason: Nausea / Vomiting Ondansetron HCl (Zofran Odt) 4 mg TL Q6HR PRN PRN Reason: Nausea / Vomiting Oseltamivir Phosphate (Tamiflu) 75 mg PO BID [facility] Stop: 06/11/18 21:01 Last Admin: 06/07/18 20:13 Dose: 75 mg Oxycodone HCl (Roxicodone) 5 mg PO Q4HR PRN PRN Reason: Pain 5 to 7 Last Admin: 06/08/18 07:00 Dose: 5 mg Polyethylene Glycol (Miralax) 17 gm PO DAILY [facility] Saccharomyces Boulardii (Florastor) 250 mg PO BIDWM [facility] Last Admin: 06/07/18 16:34 Dose: 250 mg Sodium Chloride (Normal Saline Flush 0.9%) 10 ml IVP PRN PRN PRN Reason: NEEDED PER PROVIDER ORDERS Last Admin: 06/07/18 12:18 Dose: 10 ml Sodium Chloride (Normal Saline Flush 0.9%) 10 ml IVP 0100,0900,1700 [facility] Last Admin: 06/08/18 03:41 Dose: Not Given Tamsulosin HCl (Flomax) 0.4 mg PO DAILY [facility] Tizanidine HCl (Zanaflex) 4 mg PO TID PRN PRN Reason: MUSCLE SPASM Last Admin: 06/07/18 20:13 Dose: 4 mg Escitalopram [Lexapro] 20 mg PO DAILY 04/01/14 Estrogens, Conjugated [Premarin] 1.25 mg PO DAILY 04/01/14 Gabapentin 300 mg PO TID 11/25/16 busPIRone [Buspar] 10 mg PO DAILY 03/13/17 Celecoxib 200 mg PO BID 03/10/18 Tizanidine HCl 4 mg PO TID PRN 03/10/18 Levothyroxine [Synthroid] 100 mcg PO QDAC 05/15/18 Benzonatate [Tessalon Perle] 100 mg PO TID 06/07/18 Butalb/Acetaminophen/Caffeine [Fhprbb-Mkzkobsz-Lrug 50-325-40] 1 each PO Q4H PRN 06/07/18 Butorphanol Tartrate 1 - 2 sprays NS Q8H PRN 06/07/18 Hydrocodone/Acetaminophen [Hydrocodon-Acetaminophn 10-325] 1 each PO QID PRN 06/07/18 Objective - Vital Signs/Intake & Output Vital Signs: Vital Signs x48h Temp Pulse Pulse Resp BP Pulse Ox 06/08/18 06:05 36.5 C 06/08/18 02:49 77 20 06/07/18 23:58 36.6 C 69 18 142/84 H 94 Intake & Output: Intake & Output 06/05/18 06/06/18 06/07/18 06/08/18 23:59 23:59 23:59 23:59 Intake Total 2850 1383.333 Output Total 240 Balance 2610 1383.333 - Objective General Appearance: positive: No acute distress, Alert, Other (Morbidly obese white female with nasal tone of voice, still hoarse. No coughing. Very fatigued.) ENT: positive: Other (Cobblestoning of pharynx, no exudate.) Neck: positive: No JVD, Lymphadenopathy (R) (Shotty), Lymphadenopathy (L) (Shotty). negative: Stiff neck, Carotid bruit Respiratory: positive: Chest non-tender, Wheezes, Other (I can barely hear inspiratory breaths. This is diffuse. And then with exhalation diffuse wheezing. While she is comfortable at rest, when she gets up to walk to the bathroom or speaks more than 3-5 minutes she starts getting tachypneic. No use of accessory muscles.). negative: Rales, Rhonchi Cardiovascular: positive: Regular rate & rhythm. negative: Systolic murmur, Gallop/S4, Friction rub Abdomen: positive: Non-tender, Nml bowel sounds, No distention, Other (Very large obese pannus. Unable to assess for organomegaly.) Skin: positive: Warm, Dry Extremities: positive: Full ROM, Pedal edema (Minimal and less than 1+ around ankles and feet) Neurologic/Psychiatric: positive: Oriented x3, CN's nml (2-12), Motor nml - Lab Results Fish Bones: 06/08/18 05:25 06/08/18 05:25 Other Labs: Lab Results x24hrs 06/08/18 06/08/18 06/08/18 Range/Units 05:25 05:25 05:25 WBC 6.1 (4.8-10.8) x10^3/uL RBC 4.29 (4.20-5.40) 10^6/uL Hgb 12.5 (12.0-16.0) g/dL Hct 38.1 (37.0-47.0) % MCV 88.9 (81.0-99.0) fL MCH 29.1 (27.0-31.0) pg MCHC 32.8 (32.0-36.0) g/dL RDW 15.1 H (12.0-15.0) % Plt Count 216 (130-450) 10^3/uL MPV 7.5 L (7.9-10.8) fL Neut # (Auto) 4.8 (1.5-6.6) 10^3/uL Lymph # (Auto) 0.9 L (1.5-3.5) 10^3/uL [place] # (Auto) 0.4 (0.0-1.0) 10^3/uL Eos # (Auto) 0.0 (0.0-0.7) 10^3/uL Baso # (Auto) 0.0 (0.0-0.1) 10^3/uL Absolute Nucleated RBC 0.00 x10^3/uL Nucleated RBC % 0.0 /100WBC Sodium 141 (135-145) mmol/L Potassium 3.9 (3.5-5.0) mmol/L Chloride 103 (101-111) mmol/L Carbon Dioxide 22 (21-32) mmol/L Anion Gap 16.0 H (6-13) BUN 18 (6-20) mg/dL Creatinine 1.0 (0.4-1.0) mg/dL Estimated GFR (MDRD) 57 L (>89) Glucose 169 H (70-100) mg/dL Glycated Hemoglobin 5.7 (4.6-6.2) % Estim Average Glucose 117 H (70-100) Lactic Acid (0.5-2.2) mmol/L Calcium 8.8 (8.5-10.3) mg/dL Total Bilirubin (0.2-1.0) mg/dL AST (10-42) IU/L ALT (10-60) IU/L Alkaline Phosphatase (42-121) IU/L Total Protein (6.7-8.2) g/dL Albumin (3.2-5.5) g/dL Globulin (2.1-4.2) g/dL Albumin/Globulin Ratio (1.0-2.2) Lipase (22-51) U/L Urine Color Urine Clarity (CLEAR) Urine pH (5.0-7.5) PH Ur Specific [place] (1.002-1.030) Urine Protein (NEGATIVE) mg/dL Urine Glucose (UA) (NEGATIVE) mg/dL Urine Ketones (NEGATIVE) mg/dL Urine Occult Blood (NEGATIVE) Urine Nitrite (NEGATIVE) Urine Bilirubin (NEGATIVE) Urine Urobilinogen (NORMAL) E.U./dL Ur Leukocyte Esterase (NEGATIVE) Urine RBC (0-5) /HPF Urine WBC (0-5) /HPF Ur Squamous Epith Cells (<= Few) Urine Bacteria (None Seen) /HPF Ur Microscopic Review Urine Culture Comments Influenza A (Rapid) (Negative) Influenza B (Rapid) (Negative) 06/07/18 06/07/18 06/07/18 Range/Units 09:30 08:53 08:53 WBC (4.8-10.8) x10^3/uL RBC (4.20-5.40) 10^6/uL Hgb (12.0-16.0) g/dL Hct (37.0-47.0) % MCV (81.0-99.0) fL MCH (27.0-31.0) pg MCHC (32.0-36.0) g/dL RDW (12.0-15.0) % Plt Count (130-450) 10^3/uL MPV (7.9-10.8) fL Neut # (Auto) (1.5-6.6) 10^3/uL Lymph # (Auto) (1.5-3.5) 10^3/uL [place] # (Auto) (0.0-1.0) 10^3/uL Eos # (Auto) (0.0-0.7) 10^3/uL Baso # (Auto) (0.0-0.1) 10^3/uL Absolute Nucleated RBC x10^3/uL Nucleated RBC % /100WBC Sodium 136 (135-145) mmol/L Potassium 3.6 (3.5-5.0) mmol/L Chloride 100 L (101-111) mmol/L Carbon Dioxide 26 (21-32) mmol/L Anion Gap 10.0 (6-13) BUN 16 (6-20) mg/dL Creatinine 1.5 H (0.4-1.0) mg/dL Estimated GFR (MDRD) 36 L (>89) Glucose 150 H (70-100) mg/dL Glycated Hemoglobin (4.6-6.2) % Estim Average Glucose (70-100) Lactic Acid 1.0 (0.5-2.2) mmol/L Calcium 8.5 (8.5-10.3) mg/dL Total Bilirubin 0.4 (0.2-1.0) mg/dL AST 32 (10-42) IU/L ALT 32 (10-60) IU/L Alkaline Phosphatase 56 (42-121) IU/L Total Protein 6.4 L (6.7-8.2) g/dL Albumin 3.4 (3.2-5.5) g/dL Globulin 3.0 (2.1-4.2) g/dL Albumin/Globulin Ratio 1.1 (1.0-2.2) Lipase 20 L (22-51) U/L Urine Color YELLOW Urine Clarity CLEAR (CLEAR) Urine pH 5.5 (5.0-7.5) PH Ur Specific [place] 1.025 (1.002-1.030) Urine Protein NEGATIVE (NEGATIVE) mg/dL Urine Glucose (UA) NEGATIVE (NEGATIVE) mg/dL Urine Ketones TRACE (NEGATIVE) mg/dL Urine Occult Blood NEGATIVE (NEGATIVE) Urine Nitrite NEGATIVE (NEGATIVE) Urine Bilirubin NEGATIVE (NEGATIVE) Urine Urobilinogen 0.2 (NORMAL) (NORMAL) E.U./dL Ur Leukocyte Esterase TRACE H (NEGATIVE) Urine RBC 0-5 (0-5) /HPF Urine WBC 0-3 (0-5) /HPF Ur Squamous Epith Cells FEW Squamous (<= Few) Urine Bacteria Few (None Seen) /HPF Ur Microscopic Review INDICATED Urine Culture Comments INDICATED Influenza A (Rapid) (Negative) Influenza B (Rapid) (Negative) 06/07/18 06/07/18 Range/Units 08:53 08:39 WBC 8.8 (4.8-10.8) x10^3/uL RBC 3.90 L (4.20-5.40) 10^6/uL Hgb 11.4 L (12.0-16.0) g/dL Hct 34.8 L (37.0-47.0) % MCV 89.2 (81.0-99.0) fL MCH 29.3 (27.0-31.0) pg MCHC 32.9 (32.0-36.0) g/dL RDW 15.2 H (12.0-15.0) % Plt Count 189 (130-450) 10^3/uL MPV 7.5 L (7.9-10.8) fL Neut # (Auto) 6.7 H (1.5-6.6) 10^3/uL Lymph # (Auto) 1.3 L (1.5-3.5) 10^3/uL [place] # (Auto) 0.6 (0.0-1.0) 10^3/uL Eos # (Auto) 0.2 (0.0-0.7) 10^3/uL Baso # (Auto) 0.0 (0.0-0.1) 10^3/uL Absolute Nucleated RBC 0.00 x10^3/uL Nucleated RBC % 0.0 /100WBC Sodium (135-145) mmol/L Potassium (3.5-5.0) mmol/L Chloride (101-111) mmol/L Carbon Dioxide (21-32) mmol/L Anion Gap (6-13) BUN (6-20) mg/dL Creatinine (0.4-1.0) mg/dL Estimated GFR (MDRD) (>89) Glucose (70-100) mg/dL Glycated Hemoglobin (4.6-6.2) % Estim Average Glucose (70-100) Lactic Acid (0.5-2.2) mmol/L Calcium (8.5-10.3) mg/dL Total Bilirubin (0.2-1.0) mg/dL AST (10-42) IU/L ALT (10-60) IU/L Alkaline Phosphatase (42-121) IU/L Total Protein (6.7-8.2) g/dL Albumin (3.2-5.5) g/dL Globulin (2.1-4.2) g/dL Albumin/Globulin Ratio (1.0-2.2) Lipase (22-51) U/L Urine Color Urine Clarity (CLEAR) Urine pH (5.0-7.5) PH Ur Specific [place] (1.002-1.030) Urine Protein (NEGATIVE) mg/dL Urine Glucose (UA) (NEGATIVE) mg/dL Urine Ketones (NEGATIVE) mg/dL Urine Occult Blood (NEGATIVE) Urine Nitrite (NEGATIVE) Urine Bilirubin (NEGATIVE) Urine Urobilinogen (NORMAL) E.U./dL Ur Leukocyte Esterase (NEGATIVE) Urine RBC (0-5) /HPF Urine WBC (0-5) /HPF Ur Squamous Epith Cells (<= Few) Urine Bacteria (None Seen) /HPF Ur Microscopic Review Urine Culture Comments Influenza A (Rapid) POSITIVE H (Negative) Influenza B (Rapid) Negative (Negative) ABX Reporting Has patient been on IV antibiotics over the past 48 hours?: Yes Sepsis Event Note (H) - Evaluation Current Stage of Sepsis: Ruled out Assessment/Plan - Problem List (1) COPD exacerbation Impression: In a patient who is an ex-tobacco user. But never been intubated. She is not on any regular inhaled medication at home. Plan: Inpatient stay IV steroids every 6 hours x8 doses DuoNeb every 6 hours as needed Albuterol every 4 hours as needed Antibiotics to treat the pneumonia All of this is unchanged and continues today. While wheezing is better, it still present and she is easily tachypneic (2) Influenza Conclusion/Plan: tamiflu 75 mg po bid for 3-5 days. (3) Pneumonia Conclusion/Plan: Because of drug interaction, this patient is on Rocephin and doxycycline. Azithromycin will cause prolonged QT syndrome with some of the drug she is already on. Today is day #2. Blood cultures have been done. Plan: Continue antibiotics and adjust on the basis of blood culture results. Will order sputum culture. However, she is been unable to provide sputum yet since cough is nonproductive. Qualifiers: Pneumonia type: due to influenza A virus Laterality: right Lung location: lower lobe of lung Qualified Code(s): J11.00 - Influenza due to unidentified influenza virus with unspecified type of pneumonia (4) CKD (chronic kidney disease) stage 3, GFR 30-59 ml/min Conclusion/Plan: Since 2017 her kidney function seems to deteriorated from a baseline of 0.8-0.9. She is now consistently about 1.5 with an associated drop in GFR. This is not the worst creatinine she has had. She has been much higher last year. Today's creatinine has gone down to 1 from 1.5 Plan: I will let her know that she may have a new diagnosis, needs to follow with primary care or a nephrology visit. Will avoid nephrotoxic drugs. I will also hydrate and see how she does (5) Hyperglycemia Conclusion/Plan: Glucose has been in the 100s-170s since 2014. She does not carry the diagnosis of diabetes. I anticipate her sugars will get worse secondary to steroids. Plan: A1c 5.7%. Consider metformin or low-dose sulfonylurea in the outpatient setting Sliding scale insulin at this time (6) Depressive disorder Conclusion/Plan: Resume [facility]bert (7) History of migraine headaches Conclusion/Plan: A single dose of opiates IV given would abort the episode. She cannot take sumatriptan's. At this point she is symptom-free. (8) Chronic pain disorder Conclusion/Plan: She is on disability for chronic back pain. She takes nonsteroidals, gabapentin and Tylenol to control her pain. Occasionally she uses a muscle relaxant. Chronic pain syndrome is from low back injuries due to her jobs, as well as fibromyalgia.Today she was asking for Dilaudid for the diffuse myalgias from the flu. I carefully explained to her that I really hesitate to do so. Opioids are usually not indicated for this type of myalgia pain. I put her on rou [id number] Tylenol and Motrin. That is not helping. So I will try tramadol. (9) History of MRSA infection Conclusion/Plan: last time she was positive was 15 years ago. Not since then. I don't think she needs to be in isolation.
[2018-06-08] MEDS: amLODIPine 5 MG TABLET PO SCH (08:42)
[2018-06-08] MEDS: ESCITALOPRAM 10 MG TABLET PO SCH (08:42)
[2018-06-08] MEDS: tiZANidine 4 MG TABLET PO PRN ×3 (08:42→22:12)
[2018-06-08] MEDS: busPIRone 5 MG TABLET PO SCH (08:42)
[2018-06-08] MEDS: DOXYCYCLINE 100 MG TABLET PO SCH ×2 (08:42→20:39)
[2018-06-08] MEDS: CELECOXIB 100 MG CAPSULE PO SCH ×2 (08:42→20:39)
[2018-06-08] MEDS: ONDANSETRON 4 MG/2 ML VIAL IVP PRN (08:43)
[2018-06-08] MEDS: cefTRIAXone 2 GM in SODIUM CHLORIDE 0.9% MINIBAG 100 ML IV SCH (08:43)
[2018-06-08] MEDS: SACCHAROMYCES BOULARDII 250 MG CAPSULE PO SCH ×2 (08:43→17:26)
[2018-06-08] MEDS: TAMSULOSIN 0.4 MG CAPSULE PO SCH (08:43)
[2018-06-08] MEDS: OSELTAMIVIR 75 MG CAPSULE PO SCH ×2 (08:43→20:40)
[2018-06-08] MEDS: methylPREDNISolone SUCCINATE 40 MG/ML VIAL IVP SCH ×4 (08:44→20:40)
[2018-06-08] MEDS: POLYETHYLENE GLYCOL 3350 17 GM PACKET PO SCH (08:44)
[2018-06-08] MEDS: traMADol 50 MG TABLET PO PRN (11:28)
[2018-06-08] MEDS: SODIUM CHLORIDE FLUSH 0.9% 10 ML SYRINGE IVP PRN (20:40)
[2018-06-09] MEDS: SODIUM CHLORIDE FLUSH 0.9% 10 ML SYRINGE IVP SCH ×4 (00:40→17:50)
[2018-06-09] MEDS: ACETAMINOPHEN 325 MG TABLET PO SCH ×3 (00:40→12:47)
[2018-06-09] MEDS: oxyCODONE 5 MG TABLET PO PRN ×4 (01:53→22:09)
[2018-06-09] MEDS: IBUPROFEN 600 MG TABLET PO SCH ×3 (01:53→14:18)
[2018-06-09] MEDS: ALBUTEROL NEB 2.5 MG/3 ML INH PRN ×2 (02:37→11:19)
[2018-06-09 06:08] LABS: BASOPHILS % (AUTO) 0.2 %; EOSINOPHILS % (AUTO) 0.1 %; HGB - HEMOGLOBIN 12.4 g/dL (12.0-16.0); LYMPHOCYTES # (AUTO) 0.7 10^3/uL (1.5-3.5); MEAN CORPUSCULAR HEMOGLOBIN 29.2 pg (27.0-31.0); MEAN CORPUSCULAR HGB CONC 32.7 g/dL (32.0-36.0); MEAN CORPUSCULAR VOLUME 89.4 fL (81.0-99.0); MEAN PLATELET VOLUME 7.8 fL (7.9-10.8); MONOCYTES # (AUTO) 0.4 10^3/uL (0.0-1.0); MONOCYTES % (AUTO) 7.2 %; NEUTROPHILS # (AUTO) 4.9 10^3/uL (1.5-6.6); NEUTROPHILS % (AUTO) 80.5 %; PLT - PLATELET COUNT 226 10^3/uL (130-450); RED BLOOD COUNT 4.23 10^6/uL (4.20-5.40); RED CELL DISTRIBUTION WIDTH 14.9 % (12.0-15.0); WHITE BLOOD COUNT 6.1 x10^3/uL (4.8-10.8)
[2018-06-09 06:17] LABS: CALCIUM 8.9 mg/dL (8.5-10.3); CREATININE 0.9 mg/dL (0.4-1.0)
[2018-06-09] MEDS: BENZONATATE 100 MG CAPSULE PO SCH ×3 (06:43→22:09)
[2018-06-09] MEDS: LEVOTHYROXINE 100 MCG TABLET PO SCH (06:44)
[2018-06-09] MEDS: GABAPENTIN 300 MG CAPSULE PO SCH ×3 (06:44→22:09)
[2018-06-09] MEDS: traMADol 50 MG TABLET PO PRN ×4 (06:49→20:01)
[2018-06-09] MEDS: tiZANidine 4 MG TABLET PO PRN ×3 (06:49→22:09)
[2018-06-09] MEDS: TAMSULOSIN 0.4 MG CAPSULE PO SCH (09:12)
[2018-06-09] MEDS: CELECOXIB 100 MG CAPSULE PO SCH ×2 (09:13→20:01)
[2018-06-09] MEDS: amLODIPine 5 MG TABLET PO SCH (09:13)
[2018-06-09] MEDS: OSELTAMIVIR 75 MG CAPSULE PO SCH ×2 (09:14→20:01)
[2018-06-09] MEDS: ESCITALOPRAM 10 MG TABLET PO SCH ×2 (09:14→20:01)
[2018-06-09] MEDS: busPIRone 5 MG TABLET PO SCH (09:14)
[2018-06-09] MEDS: DOXYCYCLINE 100 MG TABLET PO SCH ×2 (09:14→20:01)
[2018-06-09] MEDS: SACCHAROMYCES BOULARDII 250 MG CAPSULE PO SCH ×2 (09:15→17:51)
[2018-06-09] MEDS: POLYETHYLENE GLYCOL 3350 17 GM PACKET PO SCH ×2 (09:16→13:25)
[2018-06-09] MEDS: cefTRIAXone 2 GM in SODIUM CHLORIDE 0.9% MINIBAG 100 ML IV SCH (09:16)
[2018-06-09] MEDS: methylPREDNISolone SUCCINATE 40 MG/ML VIAL IVP SCH ×3 (09:16→17:50)
[2018-06-09] MEDS: guaiFENesin 600 MG TABLET PO SCH ×2 (12:47→20:01)
--- NOTE | 2018-06-09 19:00 | PROVIDER PROGRESS NOTE ---
Subjective - Prog Note Date Prog Note Date: 06/09/18 Prog Note Time: 18:57 - Subjective Pt reports feeling: Improved Subjective: she is still tired and wheezing but less than yesterday. no new pain. agreeable to LABA in outpatient setting. Current Medications - Current Medications Current Medications: Active Medications Albuterol () 2.5 mg INH Q4HR PRN PRN Reason: Wheezing Stop: 06/11/18 10:43 Last Admin: 06/09/18 11:19 Dose: 2.5 mg Amlodipine Besylate (Norvasc) 10 mg PO DAILY [facility] Last Admin: 06/09/18 09:13 Dose: 10 mg Benzonatate (Tessalon) 100 mg PO TID [facility] Last Admin: 06/09/18 14:17 Dose: 100 mg Buspirone HCl (Buspar) 10 mg PO DAILY [facility] Last Admin: 06/09/18 09:14 Dose: 10 mg Celecoxib (Celebrex) 200 mg PO BID [facility] Last Admin: 06/09/18 09:13 Dose: 200 mg Doxycycline Hyclate (Vibramycin) 100 mg PO BID [facility] Last Admin: 06/09/18 09:14 Dose: 100 mg Escitalopram Oxalate (Lexapro) 20 mg PO BID [facility] Gabapentin (Neurontin) 300 mg PO TID [facility] Last Admin: 06/09/18 14:17 Dose: 300 mg Guaifenesin (Mucinex) 600 mg PO BID [facility] Last Admin: 06/09/18 12:47 Dose: 600 mg Ceftriaxone Sodium 2 gm/ (Sodium Chloride) 100 mls @ 200 mls/hr IV DAILY [facility] Last Infusion: 06/09/18 10:19 Dose: Infused Levothyroxine Sodium (Synthroid) 100 mcg PO QDAC [facility] Last Admin: 06/09/18 06:44 Dose: 100 mcg Ondansetron HCl (Zofran Inj) 4 mg IVP Q6HR PRN PRN Reason: Nausea / Vomiting Last Admin: 06/08/18 08:43 Dose: 4 mg Ondansetron HCl (Zofran Odt) 4 mg TL Q6HR PRN PRN Reason: Nausea / Vomiting Oseltamivir Phosphate (Tamiflu) 75 mg PO BID [facility] Stop: 06/11/18 21:01 Last Admin: 06/09/18 09:14 Dose: 75 mg Oxycodone HCl (Roxicodone) 5 mg PO Q4HR PRN PRN Reason: Pain 5 to 7 Last Admin: 06/09/18 17:51 Dose: 5 mg Polyethylene Glycol (Miralax) 17 gm PO DAILY [facility] Last Admin: 06/09/18 13:25 Dose: 17 gm Saccharomyces Boulardii (Florastor) 250 mg PO BIDWM [facility] Last Admin: 06/09/18 17:51 Dose: 250 mg Sodium Chloride (Normal Saline Flush 0.9%) 10 ml IVP PRN PRN PRN Reason: NEEDED PER PROVIDER ORDERS Last Admin: 06/08/18 20:40 Dose: 10 ml Sodium Chloride (Normal Saline Flush 0.9%) 10 ml IVP 0100,0900,1700 [facility] Last Admin: 06/09/18 17:50 Dose: 10 ml Tamsulosin HCl (Flomax) 0.4 mg PO DAILY [facility] Last Admin: 06/09/18 09:12 Dose: 0.4 mg Tizanidine HCl (Zanaflex) 4 mg PO TID PRN PRN Reason: MUSCLE SPASM Last Admin: 06/09/18 14:18 Dose: 4 mg Tramadol HCl (Ultram) 50 mg PO Q4HR PRN PRN Reason: PAIN Last Admin: 06/09/18 15:52 Dose: 50 mg Escitalopram [Lexapro] 20 mg PO BID 04/01/14 Estrogens, Conjugated [Premarin] 1.25 mg PO DAILY 04/01/14 Gabapentin 300 mg PO TID 11/25/16 busPIRone [Buspar] 10 mg PO DAILY 03/13/17 Celecoxib 200 mg PO BID 03/10/18 Tizanidine HCl 4 mg PO TID PRN 03/10/18 Levothyroxine [Synthroid] 100 mcg PO QDAC 05/15/18 Benzonatate [Tessalon Perle] 100 mg PO TID 06/07/18 Butalb/Acetaminophen/Caffeine [Regsdh-Kwszzytl-Hfvn 50-325-40] 1 each PO Q4H PRN 06/07/18 Butorphanol Tartrate 1 - 2 sprays NS Q8H PRN 06/07/18 Hydrocodone/Acetaminophen [Hydrocodon-Acetaminophn 10-325] 1 each PO QID PRN 06/07/18 Objective - Vital Signs/Intake & Output Reviewed Vital Signs: Yes Vital Signs: Vital Signs x48h Temp Pulse Pulse Resp BP Pulse Ox 06/09/18 17:52 169/83 H 06/09/18 15:34 36.6 C 91 19 178/94 H 94 06/09/18 11:30 74 20 Intake & Output: Intake & Output 06/06/18 06/07/18 06/08/18 06/09/18 23:59 23:59 23:59 23:59 Intake Total 2850 2671.000 1610 Output Total 240 3075 Balance 2610 2671.000 -1465 - Objective General Appearance: positive: No acute distress, Alert Eyes Bilateral: positive: PERRL, EOMI ENT: positive: Other (rhinorrhea, nasal voice, clearing throat) Neck: positive: No JVD. negative: Stiff neck Respiratory: positive: Chest non-tender, No respiratory distress, Wheezes. negative: Rales, Rhonchi Cardiovascular: positive: Regular rate & rhythm. negative: Systolic murmur, Gallop/S4, Friction rub Abdomen: positive: Non-tender, Nml bowel sounds, No distention Skin: positive: Warm, Dry Extremities: positive: Full ROM Neurologic/Psychiatric: positive: Oriented x3, CN's nml (2-12), Motor nml - Lab Results Fish Bones: 06/09/18 05:20 06/09/18 05:20 Other Labs: Lab Results x24hrs 06/09/18 06/09/18 Range/Units 05:20 05:20 WBC 6.1 (4.8-10.8) x10^3/uL RBC 4.23 (4.20-5.40) 10^6/uL Hgb 12.4 (12.0-16.0) g/dL Hct 37.8 (37.0-47.0) % MCV 89.4 (81.0-99.0) fL MCH 29.2 (27.0-31.0) pg MCHC 32.7 (32.0-36.0) g/dL RDW 14.9 (12.0-15.0) % Plt Count 226 (130-450) 10^3/uL MPV 7.8 L (7.9-10.8) fL Neut # (Auto) 4.9 (1.5-6.6) 10^3/uL Lymph # (Auto) 0.7 L (1.5-3.5) 10^3/uL [place] # (Auto) 0.4 (0.0-1.0) 10^3/uL Eos # (Auto) 0.0 (0.0-0.7) 10^3/uL Baso # (Auto) 0.0 (0.0-0.1) 10^3/uL Absolute Nucleated RBC 0.00 x10^3/uL Nucleated RBC % 0.0 /100WBC Sodium 138 (135-145) mmol/L Potassium 4.2 (3.5-5.0) mmol/L Chloride 100 L (101-111) mmol/L Carbon Dioxide 24 (21-32) mmol/L Anion Gap 14.0 H (6-13) BUN 21 H (6-20) mg/dL Creatinine 0.9 (0.4-1.0) mg/dL Estimated GFR (MDRD) 65 L (>89) Glucose 182 H (70-100) mg/dL Calcium 8.9 (8.5-10.3) mg/dL ABX Reporting Has patient been on IV antibiotics over the past 48 hours?: Yes Sepsis Event Note (H) - Evaluation Current Stage of Sepsis: Ruled out Assessment/Plan - Problem List (1) COPD exacerbation Impression: In a patient who is an ex-tobacco user. But never been intubated. She is not on any regular inhaled medication at home. Plan: Inpatient stay IV steroids every 6 hours x8 doses DuoNeb every 6 hours as needed Albuterol every 4 hours as needed Antibiotics to treat the pneumonia All of this is unchanged and continues today. Discharge in am. Less wheezing. add perforomist now and for outpt (2) Influenza Conclusion/Plan: tamiflu 75 mg po bid for 3-5 days. take out of isolation precautions (3) Pneumonia Conclusion/Plan: Because of drug interaction, this patient is on Rocephin and doxycycline. Azithromycin will cause prolonged QT syndrome with some of the drug she is already on. Today is day #3. Blood cultures have been done but no results. change to Amoxil and doxy. Plan: Continue antibiotics and adjust on the basis of blood culture results. Will order sputum culture. However, she is been unable to provide sputum yet since cough is nonproductive. Qualifiers: Pneumonia type: due to influenza A virus Laterality: right Lung location: lower lobe of lung Qualified Code(s): J11.00 - Influenza due to unidentified influenza virus with unspecified type of pneumonia (4) CKD (chronic kidney disease) stage 3, GFR 30-59 ml/min Conclusion/Plan: Since 2017 her kidney function seems to deteriorated from a baseline of 0.8-0.9. She is now consistently about 1.5 with an associated drop in GFR. This is not the worst creatinine she has had. She has been much higher last year. Today's creatinine has gone down to 1 from 1.5 Plan: I will let her know that she may have a new diagnosis, needs to follow with primary care or a nephrology visit. Will avoid nephrotoxic drugs. I will also hydrate and see how she does (5) Hyperglycemia Conclusion/Plan: Glucose has been in the 100s-170s since 2013. She does not carry the diagnosis of diabetes. I anticipate her sugars will get worse secondary to steroids. Plan: A1c 5.7%. Consider metformin or low-dose sulfonylurea in the outpatient setting Sliding scale insulin at this time (6) Depressive disorder Conclusion/Plan: Resume BuSpar, Lexapro. Lexapro is bid and she would like to be back on usual dose so that is increased. (7) History of migraine headaches Conclusion/Plan: A single dose of opiates IV given would abort the episode. She cannot take sumatriptan's. At this point she is symptom-free. (8) Chronic pain disorder Conclusion/Plan: She is on disability for chronic back pain. She takes nonsteroidals, gabapentin and Tylenol to control her pain. Occasionally she uses a muscle relaxant. Chronic pain syndrome is from low back injuries due to her jobs, as well as fibromyalgia.Today she was asking for Dilaudid for the diffuse myalgias from the flu. I carefully explained to her that I really hesitate to do so. Opioids are usually not indicated for this type of myalgia pain. I put her on [id number] Tylenol and Motrin. That is not helping. So I will try tramadol. This is working. (9) History of MRSA infection Conclusion/Plan: last time she was positive was 15 years ago. Not since then. I don't think she needs to be in isolation.
[2018-06-09] MEDS: AMOXICILLIN 250 MG CAPSULE PO SCH (20:03)
[2018-06-09] MEDS: ONDANSETRON 4 MG/2 ML VIAL IVP PRN (21:03)
[2018-06-10] MEDS: traMADol 50 MG TABLET PO PRN ×3 (00:07→11:57)
[2018-06-10] MEDS: SODIUM CHLORIDE FLUSH 0.9% 10 ML SYRINGE IVP SCH ×3 (00:07→09:55)
[2018-06-10] MEDS: AMOXICILLIN 250 MG CAPSULE PO SCH ×3 (00:07→11:57)
[2018-06-10] MEDS: oxyCODONE 5 MG TABLET PO PRN ×2 (02:04→08:35)
[2018-06-10] MEDS: ALBUTEROL NEB 2.5 MG/3 ML INH PRN (03:48)
[2018-06-10 05:43] LABS: BASOPHILS # (AUTO) 0.1 10^3/uL (0.0-0.1); BASOPHILS % (AUTO) 0.7 %; HGB - HEMOGLOBIN 13.2 g/dL (12.0-16.0); LYMPHOCYTES # (AUTO) 1.2 10^3/uL (1.5-3.5); LYMPHOCYTES % (AUTO) 14.8 %; MEAN CORPUSCULAR HEMOGLOBIN 29.1 pg (27.0-31.0); MEAN CORPUSCULAR HGB CONC 32.6 g/dL (32.0-36.0); MEAN CORPUSCULAR VOLUME 89.1 fL (81.0-99.0); MEAN PLATELET VOLUME 7.5 fL (7.9-10.8); MONOCYTES # (AUTO) 0.7 10^3/uL (0.0-1.0); MONOCYTES % (AUTO) 8.4 %; NEUTROPHILS # (AUTO) 6.1 10^3/uL (1.5-6.6); NEUTROPHILS % (AUTO) 76.1 %; PLT - PLATELET COUNT 247 10^3/uL (130-450); RED BLOOD COUNT 4.53 10^6/uL (4.20-5.40); RED CELL DISTRIBUTION WIDTH 14.5 % (12.0-15.0); WHITE BLOOD COUNT 8.1 x10^3/uL (4.8-10.8)
[2018-06-10 05:46] LABS: CALCIUM 9.3 mg/dL (8.5-10.3)
[2018-06-10] MEDS: BENZONATATE 100 MG CAPSULE PO SCH (06:10)
[2018-06-10] MEDS: GABAPENTIN 300 MG CAPSULE PO SCH (06:10)
[2018-06-10] MEDS: LEVOTHYROXINE 100 MCG TABLET PO SCH (06:10)
[2018-06-10] MEDS ORDERED: FORMOTEROL FUMARATE NEB 20 MCG/2 ML INH SCH (07:00)
--- NOTE | 2018-06-10 07:23 | Discharge Plan ---
Discharge Plan Disposition: Home, Self Care Condition: Stable Prescriptions: Albuterol 2.5 mg INH Q4HR PRN #120 neb PRN Reason: Wheezing Amoxicillin 500 mg PO TID #9 capsule Doxycycline Hyclate 100 mg PO BID #6 capsule Formoterol Fumarate [Perforomist] 20 mcg IH BID #180 ml Oseltamivir [Tamiflu] 75 mg PO BID #4 capsule Diet: Regular Activity Restrictions: Activity as Tolerated Shower Restrictions: No Driving Restrictions: No Additional Instructions or Follow Up instructions: You were admitted to the hospital because of fever, chills, sore throat, runny nose and we found you to have the flu as well as right lung pneumonia. The pneumonia and flu was exacerbating your chronic obstructive lung disease and you were wheezing quite a bit. You have been put on antibiotics, Tamiflu for the flu, and a short duration dose of steroids. You have gotten better but you are still quite weak and still having a little bit of wheezing. At home, we are having you finish your amoxicillin and your doxycycline for your antibiotics. I have started you on a long-acting bronchodilator called Juliot and you will continue your short acting bronchodilator with albute rol. I would like both to be in nebulized form since it is difficult for you to coordinate getting the inhalers to give you the medicine correctly. I have called [facility] and they will have the medications ready. An outside company will have your machine. The only other thing we found during your stay was that of an elevated glucose. You may have early diabetes or the effects of steroids. Make sure that your doctor checks her sugar in the next week or 2 to make sure you do not have diabetes. The other thing we found was chronic kidney disease. Make sure you avoid drugs that are toxic to your kidneys. Make sure your doctor follows her kidney blood test on a regular basis. Please see your primary care provider in the next 1-2 weeks. No Smoking: If you smoke, Please STOP! Call for help. Follow-up with: Samy Henry, [Primary Care Provider] -
[2018-06-10 08:20] VITALS: BP 161/117
[2018-06-10] MEDS: TAMSULOSIN 0.4 MG CAPSULE PO SCH (08:34)
[2018-06-10] MEDS: ESCITALOPRAM 10 MG TABLET PO SCH (08:34)
[2018-06-10] MEDS: CELECOXIB 100 MG CAPSULE PO SCH (08:34)
[2018-06-10] MEDS: SACCHAROMYCES BOULARDII 250 MG CAPSULE PO SCH (08:34)
[2018-06-10] MEDS: DOXYCYCLINE 100 MG TABLET PO SCH (08:35)
[2018-06-10] MEDS: OSELTAMIVIR 75 MG CAPSULE PO SCH (08:35)
[2018-06-10] MEDS: busPIRone 5 MG TABLET PO SCH (08:35)
[2018-06-10] MEDS: guaiFENesin 600 MG TABLET PO SCH (08:36)
[2018-06-10] MEDS: amLODIPine 5 MG TABLET PO SCH (08:36)
[2018-06-10] MEDS: POLYETHYLENE GLYCOL 3350 17 GM PACKET PO SCH (08:44)
[2018-06-10] MEDS: ONDANSETRON 4 MG/2 ML VIAL IVP PRN (09:54)
[2018-06-10] MEDS: tiZANidine 4 MG TABLET PO PRN (11:56)
--- NOTE | 2018-06-10 13:00 | DISCHARGE SUMMARY ---
Physician: Elena Johnson MD DATE OF ADMISSION: 06/07/2018 DATE OF DISCHARGE: 06/10/2018 DISCHARGE DIAGNOSES 1. Chronic obstructive pulmonary disease exacerbation. 2. Influenza A. 3. Pneumonia due to infectious agent. 4. Hyperglycemia secondary to steroids. 5. Acute renal failure superimposed on stage II chronic kidney disease. 6. Depressive disorder. 7. Chronic pain disorder. 8. Morbid obesity with a body mass index of 53. DISCHARGE MEDICATIONS 1. Tessalon Perles 100 mg p.o. t.i.d. 2. BuSpar 15 mg p.o. daily. 3. Butalbital/acetaminophen 50/325/40 one tablet every 4 hours as needed for headache. 4. Butorphanol tartrate spray 1-2 sprays intranasally every 8 hours as needed. 5. Celebrex 200 mg b.i.d. 6. Lexapro 20 mg b.i.d. 7. Conjugated estrogen 1.25 daily. 8. Gabapentin 300 mg t.i.d. 9. Hydrocodone with acetaminophen 10/325 one tablet q.i.d. p.r.n. 10. Synthroid 100 mcg daily. 11. Tizanidine 4 mg t.i.d. p.r.n. 12. Albuterol 2.5 mg via nebulizer every 4 hours as needed. 13. Norvasc 10 mg daily. 14. Amoxil 500 mg p.o. t.i.d. for 3 days. 15. Doxycycline 100 mg p.o. b.i.d. 16. Perforomist 20 mcg inhalation b.i.d. via nebulizer. 17. Mucinex 600 mg p.o. b.i.d. 18. Tamiflu 75 mg p.o. b.i.d. for 2 more days. 19. Flomax 0.4 mg p.o. daily. PRINCIPAL PROCEDURES 1. Chest x-ray with limited examination and right lower lobe consolidation positive for pneumonia. 2. Urine cultures with polymicrobial growth. HOSPITAL COURSE: This is an unfortunate, morbidly obese female. She has chronic pain disorder from her low back, as well as PTSD and depression. This has resulted in her being less and less ambulatory and she is currently 5 feet 6 inches tall, 148 kilograms with a BMI of 53. She is an ex-smoker who stopped a few years ago, but has had problems with COPD and does an inhaler once or twice a week. Her grandson is sick, and she became sick with him. She had runny nose, fever, chills, myalgias, and just felt miserable with pain all over superimposed on her chronic back pain. She says for once her back was not hurting her nearly as bad as these diffuse myalgias were. She became more and more short of breath, more wheezing. She came to the hospital where she was identified as having a temperature of 37.7. Heart rate of 85. White cell count was 8.8. Wheezing diffusely with tachypnea and use of accessory muscles and chest x-ray showing right lower lobe pneumonia. She was placed on empiric antibiotic therapy. Unable to use Zithromax because of drug interaction and as such doxycycline was substituted for Zithromax. She was also started on Rocephin. She was positive for influenza A screening and as such treated as influenza A with Tamiflu. Of note, all of her viral syndrome started at least a week before admission; so Tamiflu may have been less efficacious than we would like. Her stay was remarkable mainly for bedbound status. She really does not like getting out of bed and moving. She gets tachypneic and dyspneic with this. She did not require oxygen and oxygen desaturation test at discharge showed her not to need home O2. She still has faint scattered wheezing on exam, but she is now ambulating more in her room. Eating normally. Feels ready to go home. I have given her a new diagnosis of chronic obstructive pulmonary disease. I have asked her to please get pulmonary function studies with her primary care provider. I am ordering a home nebulizer machine to deliver long-acting bronchodilators to treat her COPD. She may need an addition of steroids via inhalation as well. If her primary care provider can manage her COPD in and of itself that is adequate. However, if they need referral for supervisor solder making that would be adequate as well. She did develop secondary hyperglycemia to the IV steroids we gave her which was a total of 8 doses. Glucose max 182. Glycosylated hemoglobin is 5.7. On admission, she had acute kidney failure with a creatinine of 1.5. Her baseline creatinine is usually less than 1. The lowest she got during this admission was 0.9. She has chronic kidney disease stage 2 with the acute kidney failure superimposed on it. She has a chronic pain disorder for which she takes opiates and migraine medicines. During this stay, she did ask for Dilaudid and I carefully explained to her that, while we understood and sympathized with her myalgias and arthralgias., Dilaudid would not be appropriate use for flu. She is strongly encouraged to start an exercise program if only to increase her endurance and mobility. At this time, she is not bedbound but very, very sedentary. She has slowly been gaining weight over time because of her back pain and inability to ambulate. I did recommend that possibly pool therapy would be good for her to improve mobility. She is discharged in stable condition at temperature of 36.6, pulse 97, blood pressure 170/116, respirations 16, 96% on room air. She is resumed on her Norvasc and asked to follow up with her PCP to see if she needs more medication. During her stay, blood pressure varied between 142 systolic and 178 systolic. Diastolic ranged from 83 to 116. She has a nasal tone of voice, rhinorrhea is much better. Hoarseness that was present on admission is now gone. Cough was nonproductive on admission and is now starting to produce mild amounts of clear phlegm. Lungs have scattered faint wheezing that are much improved with improved aeration sounds since admission. No tachypnea. No use of accessory muscles unless she gets up to walk to the bathroom and back. She has a huge abdominal pannus with resolving Anne-Marie intertrigo in the intertriginous folds. Extremities have mild trace edema around the ankles. I would like her to see her primary care provider, Samy Henry, in followup. Greater than 30 minutes was spent coordinating discharge. CC: Samy Henry DO TD: 06/10/2018 10:49 MTDD
== END 2018-06-10 13:12 | disposition home or self-care (01) | DRG 190 ==
LOC: ED 07:56 → MS2 10:41
PROVIDERS: ADMIT Specialist; ATTEND Specialist
DX: J44.0 Chronic obstructive pulmonary disease with (acute) lower respiratory infection (principal); J10.00 Influenza due to other identified influenza virus with unspecified type of pneumonia; I13.0 Hypertensive heart and chronic kidney disease with heart failure and stage 1 through stage 4 chronic kidney disease, or unspecified chronic kidney disease; N17.9 Acute kidney failure, unspecified; Z68.43 Body mass index [BMI] 50.0-59.9, adult; J44.1 Chronic obstructive pulmonary disease with (acute) exacerbation; I11.0 Hypertensive heart disease with heart failure; I50.9 Heart failure, unspecified; G43.909 Migraine, unspecified, not intractable, without status migrainosus; G40.909 Epilepsy, unspecified, not intractable, without status epilepticus; E03.9 Hypothyroidism, unspecified; F41.9 Anxiety disorder, unspecified; F31.9 Bipolar disorder, unspecified; M19.90 Unspecified osteoarthritis, unspecified site; M79.7 Fibromyalgia; R09.02 Hypoxemia; Z90.710 Acquired absence of both cervix and uterus; Z90.721 Acquired absence of ovaries, unilateral; Z87.891 Personal history of nicotine dependence; R73.9 Hyperglycemia, unspecified; T38.0X5A Adverse effect of glucocorticoids and synthetic analogues, initial encounter; N18.3 Chronic kidney disease, stage 3 (moderate); G89.29 Other chronic pain; M54.5 Low back pain; E66.01 Morbid (severe) obesity due to excess calories; F43.10 Post-traumatic stress disorder, unspecified; Z74.01 Bed confinement status; R49.0 Dysphonia; R63.0 Anorexia; E86.0 Dehydration; K58.9 Irritable bowel syndrome, unspecified; Z86.14 Personal history of Methicillin resistant Staphylococcus aureus infection
CPT/HCPCS: 36415; 71046; 80048; 80053; 81001; 81003; 83036; 83605; 83690; 85025; 87086; 87275; 87276; 94640; 96361; 96374; 96375; 99284; 99285

== ENCOUNTER 2018-06-25 13:44 | Outpatient (CLI) | payer MEDICARE, MEDICAID ==
--- NOTE | 2018-07-03 16:53 | Mammography Report ---
Reason: SCREENING MAMMO, MATERNAL HX OF BREAST CA Procedure Date: 06/25/2018 Accession Number: [id number] / [id number] Procedure: MGN - Screening Mammo Dig Bilat CPT Code: FULL RESULT: EXAM: Screening Mammo Dig Bilat DATE: 06/25/2018 2:06 PM CLINICAL HISTORY: Family history breast cancer in mother at age 47. Personal history of uterine cancer. History of prior breast reduction. TECHNIQUE: Bilateral CC and MLO views were obtained. COMPARISON: None FINDINGS: The breasts demonstrate scattered fibroglandular densities bilaterally. Bilateral breasts: There are expected changes status post reduction mammoplasty. There are no suspicious masses, calcifications or areas of distortion. IMPRESSION: Benign findings RECOMMENDATION: Routine annual screening unless otherwise clinically indicated. BI-RADS CATEGORY 2: Benign findings STANDARD QUALIFYING STATEMENTS: 1. This examination was reviewed with the aid of Computer-Aided Detection (CAD). 2. A negative or benign imaging report should not preclude biopsy if clinically suspicious findings are present. 3. Dense breasts may obscure an underlying neoplasm. 4. This examination was reviewed without the aid of 3D breast imaging (tomosynthesis).
== END 2018-06-25 13:45 | disposition home or self-care (01) ==
LOC: DI.N 13:44
PROVIDERS: ATTEND Family Medicine
DX: Z12.31 Encounter for screening mammogram for malignant neoplasm of breast (principal); Z80.3 Family history of malignant neoplasm of breast
CPT/HCPCS: 77067

== ENCOUNTER 2018-07-03 18:08 | Emergency (ER) | payer MEDICARE, MEDICAID ==
[2018-07-03 19:28] LABS: BILIRUBIN,URINE NEGATIVE (NEGATIVE); GLUCOSE, URINE (UA) NEGATIVE (NEGATIVE); KETONES,URINE (UA) TRACE mg/dL (NEGATIVE); LEUKOCYTE ESTERASE, URINE NEGATIVE (NEGATIVE); NITRITE,URINE NEGATIVE (NEGATIVE); OCCULT BLOOD,URINE NEGATIVE (NEGATIVE); PH,URINE 5.5 PH (5.0-7.5); PROTEIN,URINE NEGATIVE (NEGATIVE); UROBILINOGEN,URINE 0.2 (NORMAL) E.U./dL (NORMAL)
[2018-07-03 19:37] LABS: CLARITY,URINE CLEAR (CLEAR)
--- NOTE | 2018-07-03 20:31 | ED Physician Documentation ---
PD HPI BACK PAIN - Stated complaint Stated Complaint: RT FLANK/BK PX - Chief complaint Chief Complaint: Back Pain - History obtained from History obtained from: Patient - History of Present Illness Timing - onset: How many days ago (2-3) Timing - duration: Days (2-3) Timing - details: Abrupt onset, Still present, Waxing and waning Location: Mid (kidney/flank area), Right Quality: Similar to prior episodes (has had several kidney stones in the past, similar symptoms.) Associated symptoms: No: Fever, Weakness, Numbness Improves with: No: Rest, Position Worsened by: No: Movement, Twisting, Palpation Contributing factors: No: Lifting, Twisting, Trauma Similar symptoms before: Diagnosis (kidney stones) Review of Systems Constitutional: denies: Fever, Chills Nose: denies: Rhinorrhea / runny nose, Congestion Throat: denies: Sore throat Respiratory: denies: Cough GI: reports: Abdominal Pain (right lower abd), Nausea. 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 : Incontinence, Kidney stones HEENT: None Psych: Depression, Anxiety, Bipolar disorder Musculoskeletal: Osteoarthritis, Fibromyalgia, Chronic back pain Derm: Other - Past Surgical History Past Surgical History: Yes Ortho: Arthroscopic surgery /SHEETROCK APPLICATOR: section, Hysterectomy, Oophrectomy, Breast reduction HEENT: Tonsil/Adenoidectomy - Present Medications Home Medications: Ambulatory Orders Medication Instructions Recorded Confirmed Escitalopram [Lexapro] 20 mg PO BID 04/01/14 06/09/18 Estrogens, Conjugated [Premarin] 1.25 mg PO DAILY 04/01/14 06/07/18 Gabapentin 300 mg PO TID 11/25/16 06/07/18 busPIRone [Buspar] 10 mg PO DAILY 03/13/17 06/07/18 Celecoxib 200 mg PO BID 03/10/18 06/07/18 Tizanidine HCl 4 mg PO TID PRN 03/10/18 06/07/18 Acetaminophen [Tylenol] 650 mg PO Q4HR PRN tablet 03/19/18 06/07/18 Amlodipine Besylate [Norvasc] 10 mg PO DAILY #30 tablet 03/19/18 06/07/18 Tamsulosin [Flomax] 0.4 mg PO DAILY #14 capsule 05/13/18 06/07/18 Levothyroxine [Synthroid] 100 mcg PO QDAC 05/15/18 06/07/18 Benzonatate [Tessalon Perle] 100 mg PO TID 06/07/18 06/07/18 Butalb/Acetaminophen/Caffeine 1 each PO Q4H PRN 06/07/18 06/07/18 [Fveksd-[id number]-Ngdq 50-325-40] Butorphanol Tartrate 1 - 2 sprays NS Q8H PRN 06/07/18 06/07/18 Hydrocodone/Acetaminophen 1 each PO QID PRN 06/07/18 06/07/18 [Hydrocodone-Acetamin 10-325 mg] Formoterol Fumarate [Perforomist] 20 mcg IH BID #180 ml 06/09/18 Albuterol 2.5 mg INH Q4HR PRN #120 neb 06/10/18 Amoxicillin 500 mg PO TID #9 capsule 06/10/18 Doxycycline Hyclate 100 mg PO BID #6 capsule 06/10/18 Oseltamivir [Tamiflu] 75 mg PO BID #4 capsule 06/10/18 guaiFENesin [Mucinex] 600 mg PO BID tablet 06/10/18 Dexamethasone [Decadron] 4 mg PO DAILY #5 tablet 07/03/18 Ondansetron Odt [Zofran] 4 mg TL Q6H PRN #10 tablet 07/03/18 Oxycodone HCl/Acetaminophen 1 - 2 each PO Q6H PRN #25 tablet 07/03/18 [Percocet 5-325 mg Tablet] Tamsulosin [Flomax] 0.4 mg PO DAILY #20 capsule 07/03/18 - Allergies Allergies/Adverse Reactions: Allergies Allergy/AdvReac Type Severity Reaction Status Date / Time chlorpromazine HCl * Allergy Unknown Verified 07/03/18 18:55 [From Thorazine] droperidol [From Inapsine] Allergy Unknown Verified 07/03/18 18:55 ketorolac tromethamine * Allergy Unknown Verified 07/03/18 18:55 [From Toradol] meperidine HCl * Allergy Unknown Verified 07/03/18 18:55 [From Demerol] metoclopramide HCl * Allergy Unknown Verified 07/03/18 18:55 [From Reglan] morphine Allergy Unknown Verified 07/03/18 18:55 prochlorperazine edisylate * Allergy Unknown Verified 07/03/18 18:55 [From Compazine] prochlorperazine maleate * Allergy Unknown Verified 07/03/18 18:55 [From Compazine] [id number] Antimigraine Allergy Unknown Verified 07/03/18 18:55 Agents lorazepam [From Ativan] AdvReac Anxiety Verified 07/03/18 18:55 - Social History Does the pt smoke?: No Smoking Status: Former smoker Does the pt drink ETOH?: Yes ETOH Use: Wine Does the pt have substance abuse?: No - Immunizations Immunizations are current?: Yes Immunizations: TDAP current <10years, Other immun not current - POLST Patient has POLST: No POLST Status: Full Code (Daughter is her DURABLE POWER OF T RAIL TURNER. She would like to be full code, but if there is significant cognitive deficits as a result of her illnesses, she wants us to let her go.) PD ED PE NORMAL - Vitals Vital signs reviewed: Yes - General General: Alert and oriented X 3, No acute distress, Well developed/nourished - Neck Neck: Supple, no meningeal sign, No bony TTP - Cardiac Cardiac: RRR - Respiratory Respiratory: Clear bilaterally - Abdomen Abdomen: Normal bowel sounds, Soft, Non tender, Non distended, No organomegaly - Female Female : Deferred - Rectal Rectal: Deferred - Back Back: No spinal TTP, Other (rigth CVA tenderness to percussion. ) - Derm Derm: Normal color, No rash - Neuro Neuro: Alert and oriented X 3, No motor deficit, Normal speech Results - Vitals Vitals: Oxygen O2 Source [Without Activity] Room air O2 Source Room air - Labs Labs: Laboratory Tests 07/03/18 19:10 Urine Color YELLOW Urine Clarity CLEAR Urine pH 5.5 Ur Specific [place] >=1.030 H Urine Protein NEGATIVE Urine Glucose (UA) NEGATIVE Urine Ketones TRACE Urine Occult Blood NEGATIVE Urine Nitrite NEGATIVE Urine Bilirubin NEGATIVE Urine Urobilinogen 0.2 (NORMAL) Ur Leukocyte Esterase NEGATIVE Ur Microscopic Review NOT INDICATED Urine Culture Comments NOT INDICATED PD MEDICAL DECISION MAKING - ED course Complexity details: reviewed results (shared decision to not do any imaging. UA is without infection. ), considered differential (she says she has had similar in the past several times from kidney stones and has been able to pass them each time. ), d/w patient Departure - Departure Disposition: 01 Home, Self Care Clinical Impression: Acute right flank pain, Ureterolithiasis Condition: Stable Record reviewed to determine appropriate education?: Yes Instructions: ED Stone Renal W Colic Follow-Up: Marcelo Dial MD [Primary Care Provider] - Prescriptions: Dexamethasone [Decadron] 4 mg PO DAILY #5 tablet Ondansetron Odt [Zofran] 4 mg TL Q6H PRN #10 tablet PRN Reason: Nausea / Vomiting Oxycodone HCl/Acetaminophen [Percocet 5-325 mg Tablet] 1 - 2 each PO Q6H PRN #25 tablet PRN Reason: pain Tamsulosin [Flomax] 0.4 mg PO DAILY #20 capsule Comments: We will presume this is a kidney stone passing again. Use some naproxen or ibuprofen twice daily. Add Tylenol or Percocet if needed for pain. Ondansetron for nausea. Decadron daily for inflammation as well. Recheck if not improved over the next few days. Discharge Date/Time: 07/03/18 22:33
[2018-07-03] MEDS ORDERED: oxyCODONE/ACET 5/325 Prepack 4 PO STA (21:03)
[2018-07-03] MEDS ORDERED: HYDROmorphone 2 MG/ML VIAL IM STA (21:03)
[2018-07-03] MEDS ORDERED: KETOROLAC 30 MG/ML VIAL IM STA (21:03)
[2018-07-03] MEDS ORDERED: TAMSULOSIN 0.4 MG CAPSULE PO STA (21:03)
[2018-07-03] MEDS ORDERED: ONDANSETRON ODT 4 MG TABLET TL STA (21:03)
[2018-07-03 21:54] VITALS: BP 155/112
== END 2018-07-03 22:33 | disposition home or self-care (01) ==
LOC: ED 18:08
DX: N20.1 Calculus of ureter (principal); I11.0 Hypertensive heart disease with heart failure; I50.9 Heart failure, unspecified; E03.9 Hypothyroidism, unspecified; Z87.891 Personal history of nicotine dependence
CPT/HCPCS: 81003; 96372; 99283; A9270; J1170; Q0162; 81001; 87086

== ENCOUNTER 2018-08-17 21:19 | Emergency (ER) | payer MEDICARE, MEDICAID ==
[2018-08-17 21:45] LABS: BILIRUBIN,URINE NEGATIVE (NEGATIVE); GLUCOSE, URINE (UA) NEGATIVE (NEGATIVE); KETONES,URINE (UA) NEGATIVE (NEGATIVE); LEUKOCYTE ESTERASE, URINE NEGATIVE (NEGATIVE); NITRITE,URINE NEGATIVE (NEGATIVE); OCCULT BLOOD,URINE NEGATIVE (NEGATIVE); PH,URINE 5.5 PH (5.0-7.5); PROTEIN,URINE NEGATIVE (NEGATIVE); UROBILINOGEN,URINE 0.2 (NORMAL) E.U./dL (NORMAL)
[2018-08-17 21:48] LABS: CLARITY,URINE CLEAR (CLEAR)
[2018-08-17] MEDS ORDERED: HYDROmorphone 1 MG/ML CARPUJECT IVP STA ×2 (21:59→22:52)
[2018-08-17] MEDS ORDERED: SODIUM CHLORIDE 0.9% 1,000 ML IV ONE (21:59)
[2018-08-17] MEDS ORDERED: ONDANSETRON 4 MG/2 ML VIAL IVP STA ×2 (21:59→22:52)
--- NOTE | 2018-08-17 22:05 | ED Physician Documentation ---
PD HPI ABD PAIN - Stated complaint Stated Complaint: R FLANK PX - Chief complaint Chief Complaint: Abd Pain - History obtained from History obtained from: Patient - History of Present Illness Timing - onset: How many days ago (3) Timing - duration: Days (3) Timing - details: Gradual onset, Still present, Waxing and waning Pain level max: 8 Pain level now: 8 Quality: Sharp, Pain Location: RUQ Radiation: Right flank Improved by: Meds (some better with aleve) Worsened by: Other (nothing) Associated symptoms: Nausea. No: Fever, Vomiting, Dysuria, Hematuria Similar symptoms before: Diagnosis (kidney stone) Recently seen: Emergency Dept Review of Systems Constitutional: reports: Fatigue. denies: Fever, Chills, Myalgias Eyes: denies: Decreased vision Ears: denies: Ear pain Nose: denies: Rhinorrhea / runny nose, Congestion Throat: denies: Sore throat Cardiac: denies: Chest pain / pressure, Palpitations Respiratory: denies: Dyspnea, Cough GI: reports: Abdominal Pain, Nausea. denies: Vomiting, Constipation, Diarrhea : denies: Dysuria, Frequency Skin: denies: Rash Musculoskeletal: reports: Back pain. 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, Kidney stones HEENT: None Psych: Depression, Anxiety, Bipolar disorder Musculoskeletal: Osteoarthritis, Fibromyalgia, Chronic back pain Derm: Other - Past Surgical History Past Surgical History: Yes Ortho: Arthroscopic surgery /FOREIGN SERVICE TEACHER: section, Hysterectomy, Oophrectomy, Breast reduction HEENT: Tonsil/Adenoidectomy - Present Medications Home Medications: Ambulatory Orders Medication Instructions Recorded Confirmed Escitalopram [Lexapro] 20 mg PO BID 04/01/14 06/09/18 Estrogens, Conjugated [Premarin] 1.25 mg PO DAILY 04/01/14 06/07/18 Gabapentin 300 mg PO TID 11/25/16 06/07/18 busPIRone [Buspar] 10 mg PO DAILY 03/13/17 06/07/18 Celecoxib 200 mg PO BID 03/10/18 06/07/18 Tizanidine HCl 4 mg PO TID PRN 03/10/18 06/07/18 Acetaminophen [Tylenol] 650 mg PO Q4HR PRN tablet 03/19/18 06/07/18 Amlodipine Besylate [Norvasc] 10 mg PO DAILY #30 tablet 03/19/18 06/07/18 Tamsulosin [Flomax] 0.4 mg PO DAILY #14 capsule 05/13/18 06/07/18 Levothyroxine [Synthroid] 100 mcg PO QDAC 05/15/18 06/07/18 Benzonatate [Tessalon Perle] 100 mg PO TID 06/07/18 06/07/18 Butalb/Acetaminophen/Caffeine 1 each PO Q4H PRN 06/07/18 06/07/18 [[id number]-Keuh 50-325-40] Butorphanol Tartrate 1 - 2 sprays NS Q8H PRN 06/07/18 06/07/18 Hydrocodone/Acetaminophen 1 each PO QID PRN 06/07/18 06/07/18 [Hydrocodone-Acetamin 10-325 mg] Formoterol Fumarate [Perforomist] 20 mcg IH BID #180 ml 06/09/18 Albuterol 2.5 mg INH Q4HR PRN #120 neb 06/10/18 Amoxicillin 500 mg PO TID #9 capsule 06/10/18 Doxycycline Hyclate 100 mg PO BID #6 capsule 06/10/18 Oseltamivir [Tamiflu] 75 mg PO BID #4 capsule 06/10/18 guaiFENesin [Mucinex] 600 mg PO BID tablet 06/10/18 Dexamethasone [Decadron] 4 mg PO DAILY #5 tablet 07/03/18 Ondansetron Odt [Zofran] 4 mg TL Q6H PRN #10 tablet 07/03/18 Oxycodone HCl/Acetaminophen 1 - 2 each PO Q6H PRN #25 tablet 07/03/18 [Percocet 5-325 mg Tablet] Tamsulosin [Flomax] 0.4 mg PO DAILY #20 capsule 07/03/18 Ondansetron Odt [Zofran] 4 mg TL Q6H PRN #10 tablet 08/17/18 Oxycodone HCl/Acetaminophen 1 - 2 each PO Q6H PRN #14 tablet 08/17/18 [Percocet 5-325 mg Tablet] - Allergies Allergies/Adverse Reactions: Allergies Allergy/AdvReac Type Severity Reaction Status Date / Time chlorpromazine HCl * Allergy Unknown Verified 07/03/18 18:55 [From Thorazine] droperidol [From Inapsine] Allergy Unknown Verified 07/03/18 18:55 ketorolac tromethamine * Allergy Unknown Verified 07/03/18 18:55 [From Toradol] meperidine HCl * Allergy Unknown Verified 07/03/18 18:55 [From Demerol] metoclopramide HCl * Allergy Unknown Verified 07/03/18 18:55 [From Reglan] morphine Allergy Unknown Verified 07/03/18 18:55 prochlorperazine edisylate * Allergy Unknown Verified 07/03/18 18:55 [From Compazine] prochlorperazine maleate * Allergy Unknown Verified 07/03/18 18:55 [From Compazine] [id number] Antimigraine Allergy Unknown Verified 07/03/18 18:55 Agents lorazepam [From Ativan] AdvReac Anxiety Verified 07/03/18 18:55 - Social History Does the pt smoke?: No Smoking Status: Never smoker Does the pt drink ETOH?: Yes Does the pt have substance abuse?: No - Immunizations Immunizations are current?: Yes Immunizations: TDAP current <10years, Other immun not current - POLST Patient has POLST: No POLST Status: Full Code (Daughter is her DURABLE POWER OF BALANCE TRUER. She would like to be full code, but if there is significant cognitive deficits as a result of her illnesses, she wants us to let her go.) PD ED PE NORMAL - Vitals Vital signs reviewed: Yes (hypertensive ) - General General: Alert and oriented X 3, Well developed/nourished, Other (appears uncomforable ) - HEENT HEENT: Atraumatic, PERRL, EOMI - Neck Neck: Supple, no meningeal sign, No bony TTP - Cardiac Cardiac: RRR, No murmur - Respiratory Respiratory: No respiratory distress, Clear bilaterally - Abdomen Abdomen: Soft, Non tender, No organomegaly, Other (obese) - Back Back: No CVA TTP, No spinal TTP - Derm Derm: Normal color, Warm and dry, No rash - Extremities Extremities: No deformity, No edema - Neuro Neuro: Alert and oriented X 3, broomcorn grader 2-12 intact, No motor deficit, No sensory deficit, Normal speech Eye Opening: Spontaneous Motor: Obeys Commands Verbal: Oriented GCS Score: 15 - Psych Psych: Normal mood, Normal affect Results - Vitals Vitals: Vital Signs - 24 hr 08/17/18 08/17/18 08/17/18 21:21 21:54 23:22 Temperature 36.6 C 36.2 C L Heart Rate 89 70 Respiratory 18 18 18 Rate Blood Pressure 149/83 H 127/68 O2 Saturation 100 96 Oxygen O2 Source [Without Activity] Room air O2 Source Room air - Labs Labs: Laboratory Tests 08/17/18 08/17/18 08/17/18 21:30 21:45 21:45 WBC 11.9 H RBC 4.95 Hgb 14.3 Hct 42.5 MCV 86.0 MCH 28.9 MCHC 33.6 RDW 13.8 Plt Count 311 MPV 7.9 Neut # (Auto) 7.9 H Lymph # (Auto) 2.8 Sullivan # (Auto) 0.6 Eos # (Auto) 0.4 Baso # (Auto) 0.2 H Absolute Nucleated RBC 0.00 Nucleated RBC % 0.0 Sodium 140 Potassium 4.1 Chloride 103 Carbon Dioxide 22 Anion Gap 15.0 H BUN 37 H Creatinine 1.8 H Estimated GFR (MDRD) 29 L Glucose 116 H Calcium 9.0 Total Bilirubin 0.4 AST 24 ALT 18 Alkaline Phosphatase 75 Total Protein 7.3 Albumin 3.8 Globulin 3.5 Albumin/Globulin Ratio 1.1 Lipase 35 Urine Color YELLOW Urine Clarity CLEAR Urine pH 5.5 Ur Specific [place] 1.020 Urine Protein NEGATIVE Urine Glucose (UA) NEGATIVE Urine Ketones NEGATIVE Urine Occult Blood NEGATIVE Urine Nitrite NEGATIVE Urine Bilirubin NEGATIVE Urine Urobilinogen 0.2 (NORMAL) Ur Leukocyte Esterase NEGATIVE Ur Microscopic Review NOT INDICATED Urine Culture Comments NOT INDICATED PD MEDICAL DECISION MAKING - ED course Complexity details: reviewed old records, reviewed results, re-evaluated patient, considered differential, d/w patient ED course: 57-year-old female with a history of kidney stones has had a recurrence of symptoms identical to what she has had previously with passing a kidney stone and she is not having fever urinalysis is without evidence of infection and she has had CT scan in April of this year showing a stone in the proximal ureter and a smaller stone in the kidney itself. She has had intermittent symptoms since and today I have noted her BUN and creatinine are mildly elevated she is administered saline along with Dilaudid and Zofran and I have asked the patient to follow-up with her primary for imaging if she does not have resolution of her pain in the next 2 to 3 days. Departure - Departure Disposition: 01 Home, Self Care Clinical Impression: Renal colic Condition: Stable Instructions: ED Stone Renal W Colic Follow-Up: Marcelo Dial MD [Primary Care Provider] - Prescriptions: Ondansetron Odt [Zofran] 4 mg TL Q6H PRN #10 tablet PRN Reason: Nausea / Vomiting Oxycodone HCl/Acetaminophen [Percocet 5-325 mg Tablet] 1 - 2 each PO Q6H PRN #14 tablet PRN Reason: pain Comments: Today we are presuming your pain is related to a kidney stone and there is evidence of kidney injury related to this. It is imperative that you follow-up with your primary care physician and if you are not having resolution of your symptoms within the next 3 days imaging is indicated.
[2018-08-17 22:16] LABS: BASOPHILS # (AUTO) 0.2 10^3/uL (0.0-0.1); BASOPHILS % (AUTO) 1.3 %; EOSINOPHILS # (AUTO) 0.4 10^3/uL (0.0-0.7); EOSINOPHILS % (AUTO) 3.4 %; HGB - HEMOGLOBIN 14.3 g/dL (12.0-16.0); LYMPHOCYTES # (AUTO) 2.8 10^3/uL (1.5-3.5); LYMPHOCYTES % (AUTO) 23.8 %; MEAN CORPUSCULAR HEMOGLOBIN 28.9 pg (27.0-31.0); MEAN CORPUSCULAR HGB CONC 33.6 g/dL (32.0-36.0); MEAN PLATELET VOLUME 7.9 fL (7.9-10.8); MONOCYTES # (AUTO) 0.6 10^3/uL (0.0-1.0); MONOCYTES % (AUTO) 5.3 %; NEUTROPHILS # (AUTO) 7.9 10^3/uL (1.5-6.6); NEUTROPHILS % (AUTO) 66.2 %; PLT - PLATELET COUNT 311 10^3/uL (130-450); RED BLOOD COUNT 4.95 10^6/uL (4.20-5.40); RED CELL DISTRIBUTION WIDTH 13.8 % (12.0-15.0); WHITE BLOOD COUNT 11.9 x10^3/uL (4.8-10.8)
[2018-08-17 22:25] LABS: ALBUMIN 3.8 g/dL (3.2-5.5); ALBUMIN/GLOBULIN RATIO 1.1 (1.0-2.2); BILIRUBIN,TOTAL 0.4 mg/dL (0.2-1.0); CREATININE 1.8 mg/dL (0.4-1.0); TOTAL PROTEIN 7.3 g/dL (6.7-8.2)
[2018-08-17 23:22] VITALS: BP 127/68
[2018-08-17] MEDS ORDERED: oxyCODONE/ACET 5/325 Prepack 4 PO STA (23:34)
== END 2018-08-17 23:44 | disposition home or self-care (01) ==
LOC: ED 21:19
DX: N23 Unspecified renal colic (principal); R79.89 Other specified abnormal findings of blood chemistry; Z87.442 Personal history of urinary calculi; R11.0 Nausea; I10 Essential (primary) hypertension
CPT/HCPCS: 36415; 80053; 81003; 83690; 85025; 96361; 96374; 96376; 99284; J1170; 81001; 87086

== ENCOUNTER 2018-09-13 15:57 | Outpatient (CLI) | payer MEDICARE, MEDICAID ==
--- NOTE | 2018-09-14 13:47 | XRAY Report ---
Reason: PAIN IN THORACIC SPINE,OTHER CHRONIC PAIN Procedure Date: 09/13/2018 Accession Number: [id number] / [id number] Procedure: XRN - Thoracic Spine 2 View CPT Code: FULL RESULT: EXAM: THORACIC SPINE RADIOGRAPHY EXAM DATE: 09/13/2018 04:36 PM. CLINICAL HISTORY: PAIN IN THORACIC SPINE,OTHER CHRONIC PAIN. COMPARISON: CHEST 2 VIEW 06/07/2018 9:00 AM. TECHNIQUE: 3 views. FINDINGS: Limited exam due to patient body habitus and overlapping tissues, particularly the swimmer's view. There is a mild right convex mid thoracic curvature measuring about 10 degrees. No subluxation identified. No fracture visualized. Multilevel mild to moderate disk degeneration with endplate proliferation. IMPRESSION: No fracture visualized. Multilevel disk degeneration. Mild scoliosis. RADIA
== END 2018-09-13 15:58 | disposition home or self-care (01) ==
LOC: DI.N 15:57
PROVIDERS: ATTEND Family Medicine
DX: M51.34 Other intervertebral disc degeneration, thoracic region (principal); M41.9 Scoliosis, unspecified
CPT/HCPCS: 72070

== ENCOUNTER 2018-10-26 18:43 | Emergency (ER) | payer MEDICARE, MEDICAID ==
[2018-10-26 19:20] LABS: BASOPHILS # (AUTO) 0.1 10^3/uL (0.0-0.1); BASOPHILS % (AUTO) 0.5 %; EOSINOPHILS # (AUTO) 0.4 10^3/uL (0.0-0.7); EOSINOPHILS % (AUTO) 3.4 %; HGB - HEMOGLOBIN 13.7 g/dL (12.0-16.0); LYMPHOCYTES # (AUTO) 2.9 10^3/uL (1.5-3.5); LYMPHOCYTES % (AUTO) 22.1 %; MEAN CORPUSCULAR HEMOGLOBIN 27.8 pg (27.0-31.0); MEAN CORPUSCULAR HGB CONC 31.4 g/dL (32.0-36.0); MEAN CORPUSCULAR VOLUME 88.6 fL (81.0-99.0); MEAN PLATELET VOLUME 9.1 fL (7.9-10.8); MONOCYTES # (AUTO) 0.7 10^3/uL (0.0-1.0); MONOCYTES % (AUTO) 5.2 %; NEUTROPHILS # (AUTO) 8.9 10^3/uL (1.5-6.6); NEUTROPHILS % (AUTO) 68.3 %; PLT - PLATELET COUNT 295 10^3/uL (130-450); RED BLOOD COUNT 4.93 10^6/uL (4.20-5.40); RED CELL DISTRIBUTION WIDTH 13.7 % (12.0-15.0)
[2018-10-26 19:22] LABS: BILIRUBIN,URINE NEGATIVE (NEGATIVE); GLUCOSE, URINE (UA) NEGATIVE (NEGATIVE); KETONES,URINE (UA) NEGATIVE (NEGATIVE); LEUKOCYTE ESTERASE, URINE NEGATIVE (NEGATIVE); NITRITE,URINE NEGATIVE (NEGATIVE); OCCULT BLOOD,URINE LARGE (NEGATIVE); PH,URINE 5.5 PH (5.0-7.5); PROTEIN,URINE TRACE mg/dL (NEGATIVE); UROBILINOGEN,URINE 0.2 (NORMAL) E.U./dL (NORMAL)
[2018-10-26 19:24] LABS: CLARITY,URINE HAZY (CLEAR)
[2018-10-26] MEDS ORDERED: HYDROmorphone 1 MG/ML CARPUJECT IVP STA ×3 (19:24→20:59)
[2018-10-26] MEDS ORDERED: ONDANSETRON 4 MG/2 ML VIAL IVP STA ×3 (19:24→20:59)
[2018-10-26] MEDS ORDERED: SODIUM CHLORIDE 0.9% 1,000 ML IV ONE (19:24)
[2018-10-26 19:33] LABS: ALBUMIN 3.9 g/dL (3.2-5.5); ALBUMIN/GLOBULIN RATIO 1.2 (1.0-2.2); BILIRUBIN,TOTAL 0.4 mg/dL (0.2-1.0); CALCIUM 9.3 mg/dL (8.5-10.3); CREATININE 1.3 mg/dL (0.4-1.0); TOTAL PROTEIN 7.2 g/dL (6.7-8.2)
--- NOTE | 2018-10-26 20:00 | ED Physician Documentation ---
PD HPI ABD PAIN - Stated complaint Stated Complaint: ABD PAIN - Chief complaint Chief Complaint: Abd Pain - History obtained from History obtained from: Patient - History of Present Illness Timing - onset: Yesterday Timing - duration: Days (2) Timing - details: Abrupt onset Pain level max: 8 Pain level now: 8 Quality: Aching, Pain Location: Other (R flank) Improved by: Other (nothing) Worsened by: Other (nothing) Associated symptoms: No: Fever, Nausea, Vomiting, Hematemesis, Diarrhea, Constipation, Melena, Hematochezia, Dysuria, Hematuria, Chest pain, Dizzy, Near syncope / syncope, Loss of appetite, Weight loss, Vaginal bleeding, Vaginal dc, Testicular pain Similar symptoms before: Diagnosis (kidney stones) Recently seen: Not recently seen - Additional information Additional information: Patient states that she has frequent recurrent kidney stones. She states that this feels similar to the prior kidney stones. 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 INSTRUCTOR: Other : Incontinence, Kidney stones HEENT: None Psych: Depression, Anxiety, Bipolar disorder Musculoskeletal: Osteoarthritis, Fibromyalgia, Chronic back pain Derm: Other - Past Surgical History Past Surgical History: Yes Ortho: Arthroscopic surgery /DIDACTIC INSTRUCTOR: section, Hysterectomy, Oophrectomy, Breast reduction HEENT: Tonsil/Adenoidectomy - Present Medications Home Medications: Ambulatory Orders Medication Instructions Recorded Confirmed Escitalopram [Lexapro] 20 mg PO BID 04/01/14 06/09/18 Estrogens, Conjugated [Premarin] 1.25 mg PO DAILY 04/01/14 06/07/18 Gabapentin 300 mg PO TID 11/25/16 06/07/18 busPIRone [Buspar] 10 mg PO DAILY 03/13/17 06/07/18 Celecoxib 200 mg PO BID 03/10/18 06/07/18 Tizanidine HCl 4 mg PO TID PRN 03/10/18 06/07/18 Acetaminophen [Tylenol] 650 mg PO Q4HR PRN tablet 03/19/18 06/07/18 Amlodipine Besylate [Norvasc] 10 mg PO DAILY #30 tablet 03/19/18 06/07/18 Tamsulosin [Flomax] 0.4 mg PO DAILY #14 capsule 05/13/18 06/07/18 Levothyroxine [Synthroid] 100 mcg PO QDAC 05/15/18 06/07/18 Benzonatate [Tessalon Perle] 100 mg PO TID 06/07/18 06/07/18 Butalb/Acetaminophen/Caffeine 1 each PO Q4H PRN 06/07/18 06/07/18 [Selwxb-Ozfiagwr-Zyfu 50-325-40] Butorphanol Tartrate 1 - 2 sprays NS Q8H PRN 06/07/18 06/07/18 Hydrocodone/Acetaminophen 1 each PO QID PRN 06/07/18 06/07/18 [Hydrocodone-Acetamin 10-325 mg] Formoterol Fumarate [Perforomist] 20 mcg IH BID #180 ml 06/09/18 Albuterol 2.5 mg INH Q4HR PRN #120 neb 06/10/18 Amoxicillin 500 mg PO TID #9 capsule 06/10/18 Doxycycline Hyclate 100 mg PO BID #6 capsule 06/10/18 Oseltamivir [Tamiflu] 75 mg PO BID #4 capsule 06/10/18 guaiFENesin [Mucinex] 600 mg PO BID tablet 06/10/18 Ondansetron Odt [Zofran] 4 mg TL Q6H PRN #10 tablet 07/03/18 Oxycodone HCl/Acetaminophen 1 - 2 each PO Q6H PRN #25 tablet 07/03/18 [Percocet 5-325 mg Tablet] Tamsulosin [Flomax] 0.4 mg PO DAILY #20 capsule 07/03/18 dexAMETHasone [Decadron] 4 mg PO DAILY #5 tablet 07/03/18 Ondansetron Odt [Zofran] 4 mg TL Q6H PRN #10 tablet 08/17/18 Oxycodone HCl/Acetaminophen 1 - 2 each PO Q6H PRN #14 tablet 08/17/18 [Percocet 5-325 mg Tablet] Ondansetron Odt [Zofran] 4 mg TL Q6H PRN #10 tablet 10/26/18 Oxycodone HCl/Acetaminophen 1 - 2 each PO Q6H PRN #14 tablet 10/26/18 [Percocet 5-325 mg Tablet] - Allergies Allergies/Adverse Reactions: Allergies Allergy/AdvReac Type Severity Reaction Status Date / Time chlorpromazine HCl * Allergy Unknown Verified 10/26/18 18:52 [From Thorazine] droperidol [From Inapsine] Allergy Unknown Verified 10/26/18 18:52 ketorolac tromethamine * Allergy Unknown Verified 10/26/18 18:52 [From Toradol] meperidine HCl * Allergy Unknown Verified 10/26/18 18:52 [From Demerol] metoclopramide HCl * Allergy Unknown Verified 10/26/18 18:52 [From Reglan] morphine Allergy Unknown Verified 10/26/18 18:52 prochlorperazine edisylate * Allergy Unknown Verified 10/26/18 18:52 [From Compazine] prochlorperazine maleate * Allergy Unknown Verified 10/26/18 18:52 [From Compazine] [id number] Antimigraine Allergy Unknown Verified 10/26/18 18:52 Agents lorazepam [From Ativan] AdvReac Anxiety Verified 10/26/18 18:52 - Social History Does the pt smoke?: No Smoking Status: Never smoker Does the pt drink ETOH?: Yes Does the pt have substance abuse?: No - Immunizations Immunizations are current?: Yes Immunizations: TDAP current <10years, Other immun not current - POLST Patient has POLST: No POLST Status: Full Code (Daughter is her DURABLE POWER OF ICE CREAM CHEF. She would like to be full code, but if there is significant cognitive deficits as a result of her illnesses, she wants us to let her go.) PD ED PE NORMAL - Vitals Vital signs reviewed: Yes - General General: Alert and oriented X 3, No acute distress - HEENT HEENT: Moist mucous membranes - Neck Neck: Supple, no meningeal sign - Cardiac Cardiac: RRR - Respiratory Respiratory: No respiratory distress, Clear bilaterally - Back Back: No CVA TTP, No spinal TTP - Derm Derm: Warm and dry - Neuro Neuro: Alert and oriented X 3 - Psych Psych: Normal mood Results - Vitals Vitals: Vital Signs - 24 hr 10/26/18 10/26/18 10/26/18 18:47 20:30 21:09 Temperature 36.0 C L 36.4 C L Heart Rate 90 76 87 Respiratory 16 19 12 Rate Blood Pressure 139/98 H 137/82 H 136/91 H O2 Saturation 97 99 96 Oxygen O2 Source [Without Activity] Room air O2 Source Room air - Labs Labs: Laboratory Tests 10/26/18 10/26/18 10/26/18 19:02 19:09 19:09 WBC 13.0 H RBC 4.93 Hgb 13.7 Hct 43.7 MCV 88.6 MCH 27.8 MCHC 31.4 L RDW 13.7 Plt Count 295 MPV 9.1 Neut # (Auto) 8.9 H Lymph # (Auto) 2.9 Russell # (Auto) 0.7 Eos # (Auto) 0.4 Baso # (Auto) 0.1 Absolute Nucleated RBC 0.00 Nucleated RBC % 0.0 Sodium 142 Potassium 4.1 Chloride 101 Carbon Dioxide 24 Anion Gap 17.0 H BUN 23 H Creatinine 1.3 H Estimated GFR (MDRD) 42 L Glucose 170 H Calcium 9.3 Total Bilirubin 0.4 AST 22 ALT 23 Alkaline Phosphatase 65 Total Protein 7.2 Albumin 3.9 Globulin 3.3 Albumin/Globulin Ratio 1.2 Lipase 25 Urine Color YELLOW Urine Clarity HAZY Urine pH 5.5 Ur Specific [place] 1.025 Urine Protein TRACE Urine Glucose (UA) NEGATIVE Urine Ketones NEGATIVE Urine Occult Blood LARGE H Urine Nitrite NEGATIVE Urine Bilirubin NEGATIVE Urine Urobilinogen 0.2 (NORMAL) Ur Leukocyte Esterase NEGATIVE Urine RBC 11-25 H Urine WBC 0-3 Ur Squamous Epith Cells MANY Squamous H Urine Bacteria Few Urine Casts 6-10 Hyaline Casts Ur Microscopic Review INDICATED Urine Culture Comments NOT INDICATED PD MEDICAL DECISION MAKING - ED course Complexity details: reviewed old records, re-evaluated patient, considered differential, d/w patient ED course: Pain well controlled. Tolerating p.o. without difficulty. Afebrile. A UTI. Will treat as a ureteral stone. She has never had to have stones removed. Patient counseled regarding signs and symptoms for which I believe and urgent re-evaluation would be necessary. Patient with good understanding of and agreement to plan and is comfortable going home at this time This document was made in part using voice recognition software. While efforts are made to proofread this document, sound alike and grammatical errors may occur. Departure - Departure Disposition: 01 Home, Self Care Clinical Impression: Ureteral stone Condition: Good Instructions: ED Stone Renal W Colic Follow-Up: Marcelo Dial MD [Primary Care Provider] - Prescriptions: Ondansetron Odt [Zofran] 4 mg TL Q6H PRN #10 tablet PRN Reason: Nausea / Vomiting Oxycodone HCl/Acetaminophen [Percocet 5-325 mg Tablet] 1 - 2 each PO Q6H PRN #14 tablet PRN Reason: pain Comments: Use the medications as prescribed. Follow-up with your doctor for further care. Return if you worsen. Do not drink alcohol or drive while on narcotic pain medicine. Note that many narcotic pain relievers also contain tylenol/acetaminophen. Please ensure that your total dose of acetaminophen from all sources does not exceed 3 grams (3000mg) per day. You may constipated on this medication, take a stool softener such as "Colace" twice a day while you are on it. Also recommend a [id number]-ijo-[id number] laxative such as senna or MiraLAX any day that you do not have a bowel movement. If you received narcotic pain medication in the emergency department, do not drive or operate machinery for the next 24 hours. Discharge Date/Time: 10/26/18 21:30
[2018-10-26 20:02] LABS: BACTERIA,URINE Few /HPF (None Seen); CASTS, URINE 6-10 Hyaline Casts /LPF; SQUAMOUS EPITHELIAL CELL,UR MANY Squamous (<= Few)
[2018-10-26] MEDS ORDERED: oxyCODONE/ACET 5/325 Prepack 4 PO STA (20:59)
[2018-10-26] MEDS ORDERED: ONDANSETRON ODT 4 MG Prepack 2 TL STA (21:01)
[2018-10-26 21:10] VITALS: BP 136/91
== END 2018-10-26 21:30 | disposition home or self-care (01) ==
LOC: ED 18:43
DX: N20.1 Calculus of ureter (principal); I10 Essential (primary) hypertension
CPT/HCPCS: 36415; 80053; 81001; 83690; 85025; 96361; 96374; 96376; 99283; 99284; J1170; 81003; 87086

== ENCOUNTER 2018-11-27 19:06 | Emergency (ER) | payer MEDICARE, MEDICAID ==
[2018-11-27] MEDS ORDERED: HYDROmorphone 1 MG/ML CARPUJECT IM STA (19:21)
[2018-11-27] MEDS ORDERED: ONDANSETRON 4 MG/2 ML VIAL IM STA (19:21)
[2018-11-27 19:23] LABS: BILIRUBIN,URINE NEGATIVE (NEGATIVE); GLUCOSE, URINE (UA) NEGATIVE (NEGATIVE); KETONES,URINE (UA) NEGATIVE (NEGATIVE); LEUKOCYTE ESTERASE, URINE NEGATIVE (NEGATIVE); NITRITE,URINE NEGATIVE (NEGATIVE); OCCULT BLOOD,URINE NEGATIVE (NEGATIVE); PH,URINE 5.5 PH (5.0-7.5); PROTEIN,URINE NEGATIVE (NEGATIVE); UROBILINOGEN,URINE 0.2 (NORMAL) E.U./dL (NORMAL)
--- NOTE | 2018-11-27 19:23 | ED Physician Documentation ---
PD HPI ABD PAIN - Stated complaint Stated Complaint: SIDE PX/N/V - Chief complaint Chief Complaint: Abd Pain - History obtained from History obtained from: Patient - History of Present Illness Timing - onset: Today (58-year-old woman with known history of renal colic on the right presents with severe right flank pain with straining at urination. No fevers. She is been nauseous and vomiting and cannot sleep due to the pain. She tried a Vicodin without relief. Earlier this year she was seen for renal colic and had a 6 mm stone. 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 : Incontinence, Kidney stones HEENT: None Psych: Depression, Anxiety, Bipolar disorder Musculoskeletal: Osteoarthritis, Fibromyalgia, Chronic back pain Derm: Other - Past Surgical History Past Surgical History: Yes Ortho: Arthroscopic surgery /BROADCAST CHECKER: section, Hysterectomy, Oophrectomy, Breast reduction HEENT: Tonsil/Adenoidectomy - Present Medications Home Medications: Ambulatory Orders Medication Instructions Recorded Confirmed Escitalopram [Lexapro] 20 mg PO BID 04/01/14 06/09/18 Estrogens, Conjugated [Premarin] 1.25 mg PO DAILY 04/01/14 06/07/18 Gabapentin 300 mg PO TID 11/25/16 06/07/18 busPIRone [Buspar] 10 mg PO DAILY 03/13/17 06/07/18 Celecoxib 200 mg PO BID 03/10/18 06/07/18 Tizanidine HCl 4 mg PO TID PRN 03/10/18 06/07/18 Acetaminophen [Tylenol] 650 mg PO Q4HR PRN tablet 03/19/18 06/07/18 Amlodipine Besylate [Norvasc] 10 mg PO DAILY #30 tablet 03/19/18 06/07/18 Tamsulosin [Flomax] 0.4 mg PO DAILY #14 capsule 05/13/18 06/07/18 Levothyroxine [Synthroid] 100 mcg PO QDAC 05/15/18 06/07/18 Benzonatate [Tessalon Perle] 100 mg PO TID 06/07/18 06/07/18 Butalb/Acetaminophen/Caffeine 1 each PO Q4H PRN 06/07/18 06/07/18 [Zyovwd-Mwytpgnz-Tzeg 50-325-40] Butorphanol Tartrate 1 - 2 sprays NS Q8H PRN 06/07/18 06/07/18 Hydrocodone/Acetaminophen 1 each PO QID PRN 06/07/18 06/07/18 [Hydrocodone-Acetamin 10-325 mg] Formoterol Fumarate [Perforomist] 20 mcg IH BID #180 ml 06/09/18 Albuterol 2.5 mg INH Q4HR PRN #120 neb 06/10/18 Amoxicillin 500 mg PO TID #9 capsule 06/10/18 Doxycycline Hyclate 100 mg PO BID #6 capsule 06/10/18 Oseltamivir [Tamiflu] 75 mg PO BID #4 capsule 06/10/18 guaiFENesin [Mucinex] 600 mg PO BID tablet 06/10/18 Ondansetron Odt [Zofran] 4 mg TL Q6H PRN #10 tablet 07/03/18 Oxycodone HCl/Acetaminophen 1 - 2 each PO Q6H PRN #25 tablet 07/03/18 [Percocet 5-325 mg Tablet] Tamsulosin [Flomax] 0.4 mg PO DAILY #20 capsule 07/03/18 dexAMETHasone [Decadron] 4 mg PO DAILY #5 tablet 07/03/18 Ondansetron Odt [Zofran] 4 mg TL Q6H PRN #10 tablet 08/17/18 Oxycodone HCl/Acetaminophen 1 - 2 each PO Q6H PRN #14 tablet 08/17/18 [Percocet 5-325 mg Tablet] Ondansetron Odt [Zofran] 4 mg TL Q6H PRN #10 tablet 10/26/18 Oxycodone HCl/Acetaminophen 1 - 2 each PO Q6H PRN #14 tablet 10/26/18 [Percocet 5-325 mg Tablet] Oxycodone HCl/Acetaminophen 1 - 2 each PO Q6H PRN #14 tablet 11/27/18 [Percocet 5-325 mg Tablet] - Allergies Allergies/Adverse Reactions: Allergies Allergy/AdvReac Type Severity Reaction Status Date / Time chlorpromazine HCl * Allergy Unknown Verified 10/26/18 18:52 [From Thorazine] droperidol [From Inapsine] Allergy Unknown Verified 10/26/18 18:52 ketorolac tromethamine * Allergy Unknown Verified 10/26/18 18:52 [From Toradol] meperidine HCl * Allergy Unknown Verified 10/26/18 18:52 [From Demerol] metoclopramide HCl * Allergy Unknown Verified 10/26/18 18:52 [From Reglan] morphine Allergy Unknown Verified 10/26/18 18:52 prochlorperazine edisylate * Allergy Unknown Verified 10/26/18 18:52 [From Compazine] prochlorperazine maleate * Allergy Unknown Verified 10/26/18 18:52 [From Compazine] [id number] Antimigraine Allergy Unknown Verified 10/26/18 18:52 Agents lorazepam [From Ativan] AdvReac Anxiety Verified 10/26/18 18:52 - Social History Does the pt smoke?: No Smoking Status: Never smoker Does the pt drink ETOH?: Yes Does the pt have substance abuse?: No - Immunizations Immunizations are current?: Yes Immunizations: TDAP current <10years, Other immun not current - POLST Patient has POLST: No POLST Status: Full Code (Daughter is her DURABLE POWER OF ROLL PRESS OPERATOR. She would like to be full code, but if there is significant cognitive deficits as a result of her illnesses, she wants us to let her go.) PD ED PE NORMAL - Vitals Vital signs reviewed: Yes - General General: Alert and oriented X 3, Other (Appears uncomfortable) - Abdomen Abdomen: Normal bowel sounds, Soft, Non tender - Back Back: Other (Mild right flank tenderness) - Neuro Neuro: Alert and oriented X 3, Normal speech Results - Vitals Vitals: Vital Signs - 24 hr 11/27/18 11/27/18 19:09 21:07 Temperature 36.6 C 36.1 C L Heart Rate 98 89 Respiratory 16 20 Rate Blood Pressure 161/104 H 168/109 H O2 Saturation 96 92 Oxygen O2 Source [Without Activity] Room air O2 Source Room air - Labs Labs: Laboratory Tests 11/27/18 19:17 Urine Color YELLOW Urine Clarity CLEAR Urine pH 5.5 Ur Specific [place] 1.025 Urine Protein NEGATIVE Urine Glucose (UA) NEGATIVE Urine Ketones NEGATIVE Urine Occult Blood NEGATIVE Urine Nitrite NEGATIVE Urine Bilirubin NEGATIVE Urine Urobilinogen 0.2 (NORMAL) Ur Leukocyte Esterase NEGATIVE Ur Microscopic Review NOT INDICATED Urine Culture Comments NOT INDICATED PD MEDICAL DECISION MAKING - ED course ED course: 58-year-old woman with well-documented and recurrent renal colic presents with exacerbation of same. Her pain was difficult to control but eventually controlled with divided doses of Dilaudid, IV lidocaine. She cannot take Toradol due to allergy. She been having trouble getting in with the urologist and she was given a different referral this time. Departure - Departure Disposition: 01 Home, Self Care Clinical Impression: Renal colic Condition: Good Record reviewed to determine appropriate education?: Yes Instructions: ED Stone Renal W Colic Follow-Up: Amanda Whiting MD [Physician No Access] - Prescriptions: Oxycodone HCl/Acetaminophen [Percocet 5-325 mg Tablet] 1 - 2 each PO Q6H PRN #14 tablet PRN Reason: pain Comments: Continue your current medications. Try calling the new urologist to see if they can get you in in a more timely manner or at least return your phone calls. Return for new or worsening symptoms. Your blood pressure was elevated today on check into the emergency department. This does not mean that you have hypertension, it is a common phenomenon to come to the emergency department and have elevated blood pressure. I recommend that you see your primary care physician within the week to have it rechecked when you are feeling better. Do not drink or drive while taking narcotic pain medication. Note that many narcotic pain relievers also contain Tylenol/acetaminophen. Please ensure that your total dose of acetaminophen from all sources does not exceed 3 g (3000 mg) per day. You may get constipated while on this medication. Take a stool softener such as Colace twice a day while you are on it. Also add an [id number] laxative such as senna or MiraLAX on any day that you do not have a bowel movement. If you received a narcotic pain medication or sedative while in the emergency department, do not drive for the next 24 hours.
[2018-11-27 19:25] LABS: CLARITY,URINE CLEAR (CLEAR)
--- NOTE | 2018-11-27 19:59 | XRAY Report ---
Reason: R renal colic Procedure Date: 11/27/2018 Accession Number: [id number] / [id number] Procedure: XR - Abdomen 1 View X-Ray CPT Code: 81394 FULL RESULT: EXAM: ABDOMEN RADIOGRAPHY EXAM DATE: 11/27/2018 07:44 PM. CLINICAL HISTORY: R renal colic. COMPARISON: Noncontrast CT abdomen and pelvis 05/13/2018. TECHNIQUE: Supine, 1 view (2 images). FINDINGS: Bowel Gas Pattern: Within normal limits. No dilated loops. Moderate colonic stool. Other: No discernible pathologic calcification. IMPRESSION: 1. Non-obstructive bowel gas pattern. 2. No identifiable urinary calcification. RADIA
[2018-11-27] MEDS ORDERED: HYDROmorphone 1 MG/ML CARPUJECT IVP STA ×2 (20:04→20:52)
[2018-11-27] MEDS ORDERED: ONDANSETRON 4 MG/2 ML VIAL IVP STA (20:10)
[2018-11-27] MEDS ORDERED: PROMETHAZINE INJ 25 MG in SODIUM CHLORIDE 0.9% 50 ML IV STA (20:52)
[2018-11-27] MEDS ORDERED: LIDOCAINE-MPF 2% 10 ML in SODIUM CHLORIDE 0.9% 50 ML IV STA (20:53)
[2018-11-27] MEDS ORDERED: PROMETHAZINE 25 MG/1 ML VIAL IM STA (21:12)
[2018-11-27] MEDS ORDERED: oxyCODONE/ACET 5/325 Prepack 4 PO STA (21:39)
[2018-11-27 21:46] VITALS: BP 144/96
== END 2018-11-27 21:48 | disposition home or self-care (01) ==
LOC: ED 19:06
DX: N23 Unspecified renal colic (principal); Z87.442 Personal history of urinary calculi; I10 Essential (primary) hypertension
CPT/HCPCS: 74018; 81003; 96365; 96372; 96375; 96376; 99283; 99284; J1170; J7040; 81001; 87086

== ENCOUNTER 2018-12-09 12:12 | Emergency (ER) | payer MEDICARE, MEDICAID ==
[2018-12-09] MEDS ORDERED: LIDOCAINE-MPF 2% 10 ML in SODIUM CHLORIDE 0.9% 50 ML IV STA (12:31)
[2018-12-09] MEDS ORDERED: ONDANSETRON 4 MG/2 ML VIAL IVP STA (12:31)
[2018-12-09] MEDS ORDERED: SODIUM CHLORIDE 0.9% 1,000 ML IV ONE (12:31)
[2018-12-09] MEDS ORDERED: HYDROmorphone 1 MG/ML CARPUJECT IVP STA ×2 (12:31→13:34)
--- NOTE | 2018-12-09 12:34 | ED Physician Documentation ---
PD HPI ABD PAIN - Stated complaint Stated Complaint: ABD PAIN - Chief complaint Chief Complaint: Abd Pain - History obtained from History obtained from: Patient - History of Present Illness Timing - onset: Other (58-year-old woman with known 6 mm right-sided stone, she is been having trouble with follow-up with the urologist [place]. Anyway the pain came back about 5 days ago in the same spot on the right side with nausea and vomiting. She ran out of Percocet last night. No fevers or chills.) Review of Systems Constitutional: denies: Fever, Chills Cardiac: denies: Chest pain / pressure, Palpitations Respiratory: denies: Dyspnea, Cough PD PAST MEDICAL HISTORY - Past Medical History Cardiovascular: Congestive heart failure, Hypertension Respiratory: Asthma, Shortness of breath Neuro: Migraines, Seizure disorder Endocrine/Autoimmune: HyPOthyroidism, Other GI: Other CRYSTAL GRINDER: Other : Incontinence, Kidney stones HEENT: None Psych: Depression, Anxiety, Bipolar disorder Musculoskeletal: Osteoarthritis, Fibromyalgia, Chronic back pain Derm: Other - Past Surgical History Past Surgical History: Yes Ortho: Arthroscopic surgery /CRYSTAL GRINDER: section, Hysterectomy, Oophrectomy, Breast reduction HEENT: Tonsil/Adenoidectomy - Present Medications Home Medications: Ambulatory Orders Medication Instructions Recorded Confirmed Escitalopram [Lexapro] 20 mg PO BID 04/01/14 06/09/18 Estrogens, Conjugated [Premarin] 1.25 mg PO DAILY 04/01/14 06/07/18 Gabapentin 300 mg PO TID 11/25/16 06/07/18 busPIRone [Buspar] 10 mg PO DAILY 03/13/17 06/07/18 Celecoxib 200 mg PO BID 03/10/18 06/07/18 Tizanidine HCl 4 mg PO TID PRN 03/10/18 06/07/18 Acetaminophen [Tylenol] 650 mg PO Q4HR PRN tablet 03/19/18 06/07/18 Amlodipine Besylate [Norvasc] 10 mg PO DAILY #30 tablet 03/19/18 06/07/18 Tamsulosin [Flomax] 0.4 mg PO DAILY #14 capsule 05/13/18 06/07/18 Levothyroxine [Synthroid] 100 mcg PO QDAC 05/15/18 06/07/18 Benzonatate [Tessalon Perle] 100 mg PO TID 06/07/18 06/07/18 Butalb/Acetaminophen/Caffeine 1 each PO Q4H PRN 06/07/18 06/07/18 [Tetxlr-Jmgcorbc-Zoxu 50-325-40] Butorphanol Tartrate 1 - 2 sprays NS Q8H PRN 06/07/18 06/07/18 Hydrocodone/Acetaminophen 1 each PO QID PRN 06/07/18 06/07/18 [Hydrocodone-Acetamin 10-325 mg] Formoterol Fumarate [Perforomist] 20 mcg IH BID #180 ml 06/09/18 Albuterol 2.5 mg INH Q4HR PRN #120 neb 06/10/18 Amoxicillin 500 mg PO TID #9 capsule 06/10/18 Doxycycline Hyclate 100 mg PO BID #6 capsule 06/10/18 Oseltamivir [Tamiflu] 75 mg PO BID #4 capsule 06/10/18 guaiFENesin [Mucinex] 600 mg PO BID tablet 06/10/18 Ondansetron Odt [Zofran] 4 mg TL Q6H PRN #10 tablet 07/03/18 Oxycodone HCl/Acetaminophen 1 - 2 each PO Q6H PRN #25 tablet 07/03/18 [Percocet 5-325 mg Tablet] Tamsulosin [Flomax] 0.4 mg PO DAILY #20 capsule 07/03/18 dexAMETHasone [Decadron] 4 mg PO DAILY #5 tablet 07/03/18 Ondansetron Odt [Zofran] 4 mg TL Q6H PRN #10 tablet 08/17/18 Oxycodone HCl/Acetaminophen 1 - 2 each PO Q6H PRN #14 tablet 08/17/18 [Percocet 5-325 mg Tablet] Ondansetron Odt [Zofran] 4 mg TL Q6H PRN #10 tablet 10/26/18 Oxycodone HCl/Acetaminophen 1 - 2 each PO Q6H PRN #14 tablet 10/26/18 [Percocet 5-325 mg Tablet] Oxycodone HCl/Acetaminophen 1 - 2 each PO Q6H PRN #14 tablet 11/27/18 [Percocet 5-325 mg Tablet] Oxycodone HCl/Acetaminophen 1 - 2 each PO Q6H PRN #20 tablet 12/09/18 [Percocet 5-325 mg Tablet] - Allergies Allergies/Adverse Reactions: Allergies Allergy/AdvReac Type Severity Reaction Status Date / Time chlorpromazine HCl * Allergy Unknown Verified 10/26/18 18:52 [From Thorazine] droperidol [From Inapsine] Allergy Unknown Verified 10/26/18 18:52 ketorolac tromethamine * Allergy Unknown Verified 10/26/18 18:52 [From Toradol] meperidine HCl * Allergy Unknown Verified 10/26/18 18:52 [From Demerol] metoclopramide HCl * Allergy Unknown Verified 10/26/18 18:52 [From Reglan] morphine Allergy Unknown Verified 10/26/18 18:52 prochlorperazine edisylate * Allergy Unknown Verified 10/26/18 18:52 [From Compazine] prochlorperazine maleate * Allergy Unknown Verified 10/26/18 18:52 [From Compazine] [id number] Antimigraine Allergy Unknown Verified 10/26/18 18:52 Agents lorazepam [From Ativan] AdvReac Anxiety Verified 10/26/18 18:52 - Social History Does the pt smoke?: No Smoking Status: Never smoker Does the pt drink ETOH?: Yes Does the pt have substance abuse?: No - Immunizations Immunizations are current?: Yes Immunizations: TDAP current <10years, Other immun not current - POLST Patient has POLST: No POLST Status: Full Code (Daughter is her DURABLE POWER OF OUTPATIENT CASE MANAGER. She would like to be full code, but if there is significant cognitive deficits as a result of her illnesses, she wants us to let her go.) PD ED PE NORMAL - Vitals Vital signs reviewed: Yes - General General: Alert and oriented X 3, Other (uncomfortable) - Cardiac Cardiac: RRR, No murmur - Respiratory Respiratory: No respiratory distress, Clear bilaterally - Abdomen Abdomen: Normal bowel sounds, Soft, Non tender - Back Back: Other (Mild R flank TTP) - Derm Derm: Normal color, Warm and dry - Neuro Neuro: Alert and oriented X 3, Normal speech Results - Vitals Vitals: Vital Signs - 24 hr 12/09/18 12/09/18 12:16 13:01 Temperature 36.5 C Heart Rate 108 H 96 Respiratory 16 28 H Rate Blood Pressure 149/108 H 158/142 H O2 Saturation 95 97 Oxygen O2 Source [Without Activity] Room air O2 Source Room air - Labs Labs: Laboratory Tests 12/09/18 12/09/18 12:27 12:30 Sodium 141 Potassium 3.5 Chloride 101 Carbon Dioxide 26 Anion Gap 14.0 H BUN 22 H Creatinine 1.1 H Estimated GFR (MDRD) 51 L Glucose 132 H Calcium 9.7 Urine Color YELLOW Urine Clarity HAZY Urine pH 5.0 Ur Specific [place] >=1.030 H Urine Protein 30 H Urine Glucose (UA) NEGATIVE Urine Ketones TRACE Urine Occult Blood LARGE H Urine Nitrite NEGATIVE Urine Bilirubin SMALL H Urine Urobilinogen 0.2 (NORMAL) Ur Leukocyte Esterase NEGATIVE Urine RBC 11-25 H Urine WBC 0-3 Ur Squamous Epith Cells MOD Squamous H Urine Crystals 11-25 Ca Oxalate Urine Bacteria Few Urine Casts 0-2 Hyaline Casts Ur Microscopic Review INDICATED Urine Culture Comments NOT INDICATED PD MEDICAL DECISION MAKING - ED course ED course: 58-year-old woman with known renal stone on prior CT presents with recurrent and severe pain due to same. She is having trouble with follow-up due to transportation issues etc. She was treated with divided doses of pain medication with acceptable relief of her pain. Departure - Departure Disposition: 01 Home, Self Care Clinical Impression: Ureteral stone, Renal colic Condition: Good Record reviewed to determine appropriate education?: Yes Instructions: ED Stone Renal W Colic Follow-Up: Gerson Rosario MD [Physician No Access] - Amanda Whiting MD [Physician No Access] - Prescriptions: Oxycodone HCl/Acetaminophen [Percocet 5-325 mg Tablet] 1 - 2 each PO Q6H PRN #20 tablet PRN Reason: pain Comments: Your blood pressure was elevated today on check into the emergency department. This does not mean that you have hypertension, it is a common phenomenon to come to the emergency department and have elevated blood pressure. I recommend that you see your primary care physician within the week to have it rechecked when you are feeling better. Do not drink or drive while taking narcotic pain medication. Note that many narcotic pain relievers also contain Tylenol/acetaminophen. Please ensure that your total dose of acetaminophen from all sources does not exceed 3 g (3000 mg) per day. You may get constipated while on this medication. Take a stool softener such as Colace twice a day while you are on it. Also add an [id number] laxative such as senna or MiraLAX on any day that you do not have a bowel movement. If you received a narcotic pain medication or sedative while in the emergency department, do not drive for the next 24 hours. As discussed it is imperative to follow-up with urologist. Please start working on that tomorrow.
[2018-12-09 13:01] LABS: CALCIUM 9.7 mg/dL (8.5-10.3); CREATININE 1.1 mg/dL (0.4-1.0)
[2018-12-09 13:23] LABS: GLUCOSE, URINE (UA) NEGATIVE (NEGATIVE); KETONES,URINE (UA) TRACE mg/dL (NEGATIVE); LEUKOCYTE ESTERASE, URINE NEGATIVE (NEGATIVE); NITRITE,URINE NEGATIVE (NEGATIVE); OCCULT BLOOD,URINE LARGE (NEGATIVE); PROTEIN,URINE 30 mg/dL (NEGATIVE); UROBILINOGEN,URINE 0.2 (NORMAL) E.U./dL (NORMAL)
[2018-12-09] MEDS ORDERED: diphenhydrAMINE 25 MG CAPSULE PO STA (13:34)
[2018-12-09] MEDS ORDERED: PROMETHAZINE INJ 25 MG in SODIUM CHLORIDE 0.9% 50 ML IV STA (13:34)
[2018-12-09 13:35] LABS: CLARITY,URINE HAZY (CLEAR)
[2018-12-09 13:40] LABS: BILIRUBIN,URINE SMALL (NEGATIVE); ICTOTEST,URINE POSITIVE
[2018-12-09 13:41] LABS: BACTERIA,URINE Few /HPF (None Seen); SQUAMOUS EPITHELIAL CELL,UR MOD Squamous (<= Few)
[2018-12-09 13:42] LABS: CASTS, URINE 0-2 Hyaline Casts /LPF; CRYSTALS,URINE 11-25 Ca Oxalate /LPF
[2018-12-09 14:28] VITALS: BP 148/105
== END 2018-12-09 14:29 | disposition home or self-care (01) ==
LOC: ED 12:12
DX: N20.1 Calculus of ureter (principal); I10 Essential (primary) hypertension
CPT/HCPCS: 36415; 80048; 81001; 96361; 96365; 96375; 96376; 99283; 99284; A9270; J1170; J7040; 81003; 87086

== ENCOUNTER 2018-12-25 17:10 | Emergency (ER) | payer MEDICARE, MEDICAID ==
[2018-12-25 18:16] LABS: BILIRUBIN,URINE NEGATIVE (NEGATIVE); GLUCOSE, URINE (UA) NEGATIVE (NEGATIVE); KETONES,URINE (UA) NEGATIVE (NEGATIVE); LEUKOCYTE ESTERASE, URINE NEGATIVE (NEGATIVE); NITRITE,URINE NEGATIVE (NEGATIVE); OCCULT BLOOD,URINE NEGATIVE (NEGATIVE); PROTEIN,URINE TRACE mg/dL (NEGATIVE); UROBILINOGEN,URINE 0.2 (NORMAL) E.U./dL (NORMAL)
[2018-12-25 18:18] LABS: CLARITY,URINE CLEAR (CLEAR)
[2018-12-25 18:19] LABS: BASOPHILS # (AUTO) 0.1 10^3/uL (0.0-0.1); BASOPHILS % (AUTO) 0.6 %; EOSINOPHILS # (AUTO) 0.6 10^3/uL (0.0-0.7); EOSINOPHILS % (AUTO) 5.7 %; HGB - HEMOGLOBIN 14.7 g/dL (12.0-16.0); LYMPHOCYTES # (AUTO) 2.6 10^3/uL (1.5-3.5); LYMPHOCYTES % (AUTO) 24.1 %; MEAN CORPUSCULAR HEMOGLOBIN 28.9 pg (27.0-31.0); MEAN CORPUSCULAR HGB CONC 32.2 g/dL (32.0-36.0); MEAN CORPUSCULAR VOLUME 89.6 fL (81.0-99.0); MEAN PLATELET VOLUME 9.1 fL (7.9-10.8); MONOCYTES # (AUTO) 0.8 10^3/uL (0.0-1.0); MONOCYTES % (AUTO) 7.1 %; NEUTROPHILS # (AUTO) 6.7 10^3/uL (1.5-6.6); NEUTROPHILS % (AUTO) 61.7 %; PLT - PLATELET COUNT 292 10^3/uL (130-450); RED BLOOD COUNT 5.09 10^6/uL (4.20-5.40); RED CELL DISTRIBUTION WIDTH 14.4 % (12.0-15.0); WHITE BLOOD COUNT 10.8 x10^3/uL (4.8-10.8)
[2018-12-25 18:37] LABS: ALBUMIN 4.1 g/dL (3.2-5.5); ALBUMIN/GLOBULIN RATIO 1.2 (1.0-2.2); BILIRUBIN,TOTAL 0.2 mg/dL (0.2-1.0); CALCIUM 9.8 mg/dL (8.5-10.3); TOTAL PROTEIN 7.4 g/dL (6.7-8.2)
--- NOTE | 2018-12-25 19:52 | ED Physician Documentation ---
PD HPI ABD PAIN - Stated complaint Stated Complaint: RT FLANK PX - Chief complaint Chief Complaint: Abd Pain - History obtained from History obtained from: Patient - History of Present Illness Timing - onset: How many days ago (2) Timing - duration: Days (She has had the right flank into the right abdomen pain for a couple of days and it was undulating and now has become consistent and more painful) Quality: Cramping, Aching, Pain Location: RLQ Radiation: Right shoulder Associated symptoms: Nausea. No: Fever, Vomiting, Diarrhea, Dysuria, Chest pain, Dizzy, Near syncope / syncope Review of Systems Constitutional: denies: Fever, Chills Nose: denies: Rhinorrhea / runny nose, Congestion Throat: denies: Sore throat Cardiac: denies: Chest pain / pressure Respiratory: denies: Cough GI: reports: Abdominal Pain, Nausea. denies: Vomiting, Constipation, Diarrhea : denies: Dysuria, Frequency, Hematuria, Discharge Skin: denies: Rash Musculoskeletal: reports: Back pain. denies: Neck pain Neurologic: denies: Generalized weakness, Near syncope PD PAST MEDICAL HISTORY - Past Medical History Past Medical History: Yes Cardiovascular: Congestive heart failure, Hypertension Respiratory: Asthma, Shortness of breath Neuro: Migraines, Seizure disorder Endocrine/Autoimmune: HyPOthyroidism GI: None CHIEF BUSINESS DEVELOPMENT OFFICER: None : Incontinence, Frequency, Kidney stones HEENT: None Psych: Depression, Anxiety, Bipolar disorder Musculoskeletal: Osteoarthritis, Fibromyalgia, Chronic back pain Derm: None - Past Surgical History Past Surgical History: Yes General: Other Ortho: Arthroscopic surgery /CHIEF BUSINESS DEVELOPMENT OFFICER: section, Hysterectomy, Oophrectomy, Breast reduction HEENT: Tonsil/Adenoidectomy - Present Medications Home Medications: Ambulatory Orders Medication Instructions Recorded Confirmed RX: Escitalopram [Lexapro] 20 mg PO BID 04/01/14 06/09/18 RX: Estrogens, Conjugated 1.25 mg PO DAILY 04/01/14 06/07/18 [Premarin] RX: Gabapentin 300 mg PO TID 11/25/16 06/07/18 RX: busPIRone [Buspar] 10 mg PO DAILY 03/13/17 06/07/18 RX: Celecoxib 200 mg PO BID 03/10/18 06/07/18 RX: Tizanidine HCl 4 mg PO TID PRN 03/10/18 06/07/18 RX: Acetaminophen [Tylenol] 650 mg PO Q4HR PRN tablet 03/19/18 06/07/18 RX: Amlodipine Besylate [Norvasc] 10 mg PO DAILY #30 tablet 03/19/18 06/07/18 RX: Tamsulosin [Flomax] 0.4 mg PO DAILY #14 capsule 05/13/18 06/07/18 RX: Levothyroxine [Synthroid] 100 mcg PO QDAC 05/15/18 06/07/18 RX: Benzonatate [Tessalon Perle] 100 mg PO TID 06/07/18 06/07/18 RX: Butalb/Acetaminophen/Caffeine 1 each PO Q4H PRN 06/07/18 06/07/18 [[id number]-[id number]-Sbwh 50-325-40] RX: Butorphanol Tartrate 1 - 2 sprays NS Q8H PRN 06/07/18 06/07/18 RX: Hydrocodone/Acetaminophen 1 each PO QID PRN 06/07/18 06/07/18 [Hydrocodone-Acetamin 10-325 mg] Formoterol Fumarate [Perforomist] 20 mcg IH BID #180 ml 06/09/18 RX: Albuterol 2.5 mg INH Q4HR PRN #120 neb 06/10/18 RX: Amoxicillin 500 mg PO TID #9 capsule 06/10/18 RX: Doxycycline Hyclate 100 mg PO BID #6 capsule 06/10/18 RX: Oseltamivir [Tamiflu] 75 mg PO BID #4 capsule 06/10/18 RX: guaiFENesin [Mucinex] 600 mg PO BID tablet 06/10/18 Ondansetron Odt [Zofran] 4 mg TL Q6H PRN #10 tablet 07/03/18 Oxycodone HCl/Acetaminophen 1 - 2 each PO Q6H PRN #25 tablet 07/03/18 [Percocet 5-325 mg Tablet] Tamsulosin [Flomax] 0.4 mg PO DAILY #20 capsule 07/03/18 dexAMETHasone [Decadron] 4 mg PO DAILY #5 tablet 07/03/18 Ondansetron Odt [Zofran] 4 mg TL Q6H PRN #10 tablet 08/17/18 Oxycodone HCl/Acetaminophen 1 - 2 each PO Q6H PRN #14 tablet 08/17/18 [Percocet 5-325 mg Tablet] Ondansetron Odt [Zofran] 4 mg TL Q6H PRN #10 tablet 10/26/18 Oxycodone HCl/Acetaminophen 1 - 2 each PO Q6H PRN #14 tablet 10/26/18 [Percocet 5-325 mg Tablet] Oxycodone HCl/Acetaminophen 1 - 2 each PO Q6H PRN #14 tablet 11/27/18 [Percocet 5-325 mg Tablet] Oxycodone HCl/Acetaminophen 1 - 2 each PO Q6H PRN #20 tablet 12/09/18 [Percocet 5-325 mg Tablet] Ondansetron Odt [Zofran] 4 mg TL Q6H PRN #10 tablet 12/25/18 Oxycodone HCl/Acetaminophen 1 each PO Q4H PRN #20 tablet 12/25/18 [Percocet 7.5-325 mg Tablet] dexAMETHasone [Decadron] 4 mg PO DAILY #5 tablet 12/25/18 - Allergies Allergies/Adverse Reactions: Allergies Allergy/AdvReac Type Severity Reaction Status Date / Time chlorpromazine HCl * Allergy Unknown Verified 10/26/18 18:52 [From Thorazine] droperidol [From Inapsine] Allergy Unknown Verified 10/26/18 18:52 ketorolac tromethamine * Allergy Unknown Verified 10/26/18 18:52 [From Toradol] meperidine HCl * Allergy Unknown Verified 10/26/18 18:52 [From Demerol] metoclopramide HCl * Allergy Unknown Verified 10/26/18 18:52 [From Reglan] morphine Allergy Unknown Verified 10/26/18 18:52 prochlorperazine edisylate * Allergy Unknown Verified 10/26/18 18:52 [From Compazine] prochlorperazine maleate * Allergy Unknown Verified 10/26/18 18:52 [From Compazine] [id number] Antimigraine Allergy Unknown Verified 10/26/18 18:52 Agents lorazepam [From Ativan] AdvReac Anxiety Verified 10/26/18 18:52 - Social History Does the pt smoke?: No Smoking Status: Former smoker Does the pt drink ETOH?: No Does the pt have substance abuse?: No - Immunizations Immunizations are current?: Yes Immunizations: TDAP current <10years, Other immun not current - POLST Patient has POLST: No POLST Status: Full Code (Daughter is her DURABLE POWER OF SPRUE CUTTING PRESS OPERATOR. She would like to be full code, but if there is significant cognitive deficits as a result of her illnesses, she wants us to let her go.) PD ED PE NORMAL - Vitals Vital signs reviewed: Yes - General General: Alert and oriented X 3, Well developed/nourished, Other (Appears uncomfortable and in pain.) - Neck Neck: Supple, no meningeal sign, No adenopathy - Cardiac Cardiac: RRR, No murmur - Respiratory Respiratory: Clear bilaterally - Abdomen Abdomen: Soft, Non distended, Other (She has some tenderness without percussion or rebound to the right lower abdomen and moderate tenderness at the CVA area on the right. The left side is not tender.) Results - Vitals Vitals: Vital Signs - 24 hr 12/25/18 12/25/18 17:32 20:53 Temperature 36.3 C L Heart Rate 78 84 Respiratory 18 18 Rate Blood Pressure 113/64 125/94 H O2 Saturation 100 94 Oxygen O2 Source [Without Activity] Room air O2 Source Room air - Labs Labs: Laboratory Tests 12/25/18 12/25/18 12/25/18 18:07 18:14 18:14 WBC 10.8 RBC 5.09 Hgb 14.7 Hct 45.6 MCV 89.6 MCH 28.9 MCHC 32.2 RDW 14.4 Plt Count 292 MPV 9.1 Neut # (Auto) 6.7 H Lymph # (Auto) 2.6 [place] # (Auto) 0.8 Eos # (Auto) 0.6 Baso # (Auto) 0.1 Absolute Nucleated RBC 0.00 Nucleated RBC % 0.0 Sodium 142 Potassium 4.1 Chloride 105 Carbon Dioxide 26 Anion Gap 11.0 BUN 23 H Creatinine 1.0 Estimated GFR (MDRD) 57 L Glucose 130 H Calcium 9.8 Total Bilirubin 0.2 AST 19 ALT 23 Alkaline Phosphatase 71 Total Protein 7.4 Albumin 4.1 Globulin 3.3 Albumin/Globulin Ratio 1.2 Lipase 27 Urine Color YELLOW Urine Clarity CLEAR Urine pH 5.0 Ur Specific [place] >=1.030 H Urine Protein TRACE Urine Glucose (UA) NEGATIVE Urine Ketones NEGATIVE Urine Occult Blood NEGATIVE Urine Nitrite NEGATIVE Urine Bilirubin NEGATIVE Urine Urobilinogen 0.2 (NORMAL) Ur Leukocyte Esterase NEGATIVE Ur Microscopic Review NOT INDICATED Urine Culture Comments NOT INDICATED PD MEDICAL DECISION MAKING - ED course Complexity details: reviewed old records (Prior charts refer to history of stones and presumption of another stone passing at this point. Recent CT was about 2 months ago and showed a 6 cm left stone on the left. Presumably this is a one passing now. She has a urologist appointment next week so treat with medication to improve for now.), re-evaluated patient (She is feeling reasonably improved after doses of IV medication including lidocaine Zofran and Dilaudid. She is allergic to NSAIDs.), considered differential, d/w patient Departure - Departure Disposition: 01 Home, Self Care Clinical Impression: Right sided abdominal pain, Renal colic Condition: Stable Record reviewed to determine appropriate education?: Yes Follow-Up: SANDEEP JONES MD [Primary Care Provider] - Prescriptions: dexAMETHasone [Decadron] 4 mg PO DAILY #5 tablet Ondansetron Odt [Zofran] 4 mg TL Q6H PRN #10 tablet PRN Reason: Nausea / Vomiting Oxycodone HCl/Acetaminophen [Percocet 7.5-325 mg Tablet] 1 each PO Q4H PRN #20 tablet PRN Reason: Pain Comments: Stay well-hydrated. Presume this is your kidney stone pain still. Follow-up with your urologist as planned. Use Decadron steroid anti-inflammatory for 5 days. Percocet if needed for pain. Return if not improving well over the next few days before you see your specialist. If so we may re-do a scan to ensure the stone is small enough for passing. Discharge Date/Time: 12/25/18 21:58
[2018-12-25] MEDS ORDERED: LIDOCAINE-MPF 2% 10 ML in SODIUM CHLORIDE 0.9% 50 ML IV STA (20:09)
[2018-12-25] MEDS ORDERED: ONDANSETRON 4 MG/2 ML VIAL IVP STA (20:10)
[2018-12-25] MEDS ORDERED: HYDROmorphone 2 MG/ML VIAL IVP STA ×2 (20:10→21:12)
[2018-12-25] MEDS ORDERED: SODIUM CHLORIDE 0.9% 1,000 ML IV ONE (20:11)
[2018-12-25 20:54] VITALS: BP 125/94
[2018-12-25] MEDS ORDERED: diphenhydrAMINE INJ 50 MG/ML VIAL IVP STA (21:35)
[2018-12-25] MEDS ORDERED: DEXAMETHASONE 10 MG/ML VIAL IVP STA (21:35)
== END 2018-12-25 21:58 | disposition home or self-care (01) ==
LOC: ED 17:10
DX: N23 Unspecified renal colic (principal); Z87.442 Personal history of urinary calculi; I10 Essential (primary) hypertension; Z87.891 Personal history of nicotine dependence; Z88.8 Allergy status to other drugs, medicaments and biological substances
CPT/HCPCS: 36415; 80053; 81003; 83690; 85025; 96365; 96375; 96376; 99284; 99285; J1170; J1200; J7040; 81001; 87086

== ENCOUNTER 2019-03-03 19:43 | Emergency (ER) | payer MEDICARE, MEDICAID ==
--- NOTE | 2019-03-03 20:28 | ED Physician Documentation ---
PD HPI FEMALE - Stated complaint Stated Complaint: RT FLANK PAIN, NAUSIA - Chief complaint Chief Complaint: Abd Pain - History obtained from History obtained from: Patient - History of Present Illness Timing - onset: How many days ago (3) Timing - duration: Days Timing - details: Intermittant, Waxing and waning Pain level max: 8 Pain level max: 4 Associated symptoms: No: Fever, Back pain, Dysuria, Urinary frequency Similar symptoms before: Diagnosis (renal colic) Recently seen: Not recently seen - Additional information Additional information: c/o 3 days of episodic right flank pain, waxing and waning intensity without apparent exacerbating or ameliorating factors. Patient says this is c/w her multiple episodes of renal colic she has had in the past. This is her 10th [facility] ED visit in 2019 (also had visit to ED last month; of relevance is that she says a CT A/P was performed at ED last month and that it demonstrated a kidney stone on right side that was "about two-thirds of the way down"). c/o nausea, no vomiting. Has a urologist who she has been following up with Review of Systems Constitutional: denies: Fever Cardiac: reports: Reviewed and negative Respiratory: reports: Reviewed and negative GI: reports: Nausea. denies: Abdominal Pain, Vomiting, Constipation, Diarrhea : denies: Dysuria, Frequency PD PAST MEDICAL HISTORY - Past Medical History Cardiovascular: Congestive heart failure, Hypertension Respiratory: Asthma, Shortness of breath Neuro: Migraines, Seizure disorder Endocrine/Autoimmune: HyPOthyroidism GI: None RIBBON BLOCKER: None : Incontinence, Frequency, Kidney stones HEENT: None Psych: Depression, Anxiety, Bipolar disorder Musculoskeletal: Osteoarthritis, Fibromyalgia, Chronic back pain Derm: None - Past Surgical History Past Surgical History: Yes General: Other Ortho: Arthroscopic surgery /RIBBON BLOCKER: section, Hysterectomy, Oophrectomy, Breast reduction HEENT: Tonsil/Adenoidectomy - Present Medications Home Medications: Ambulatory Orders Medication Instructions Recorded Confirmed Escitalopram [Lexapro] 20 mg PO BID 04/01/14 06/09/18 Estrogens, Conjugated [Premarin] 1.25 mg PO DAILY 04/01/14 06/07/18 Gabapentin 300 mg PO TID 11/25/16 06/07/18 busPIRone [Buspar] 10 mg PO DAILY 03/13/17 06/07/18 Celecoxib 200 mg PO BID 03/10/18 06/07/18 Tizanidine HCl 4 mg PO TID PRN 03/10/18 06/07/18 Acetaminophen [Tylenol] 650 mg PO Q4HR PRN tablet 03/19/18 06/07/18 Amlodipine Besylate [Norvasc] 10 mg PO DAILY #30 tablet 03/19/18 06/07/18 Tamsulosin [Flomax] 0.4 mg PO DAILY #14 capsule 05/13/18 06/07/18 Levothyroxine [Synthroid] 100 mcg PO QDAC 05/15/18 06/07/18 Benzonatate [Tessalon Perle] 100 mg PO TID 06/07/18 06/07/18 Butalb/Acetaminophen/Caffeine 1 each PO Q4H PRN 06/07/18 06/07/18 [Qhlbea-Jmdodavv-Wxdg 50-325-40] Butorphanol Tartrate 1 - 2 sprays NS Q8H PRN 06/07/18 06/07/18 Hydrocodone/Acetaminophen 1 each PO QID PRN 06/07/18 06/07/18 [Hydrocodone-Acetamin 10-325 mg] Formoterol Fumarate [Perforomist] 20 mcg IH BID #180 ml 06/09/18 Albuterol 2.5 mg INH Q4HR PRN #120 neb 06/10/18 Amoxicillin 500 mg PO TID #9 capsule 06/10/18 Doxycycline Hyclate 100 mg PO BID #6 capsule 06/10/18 Oseltamivir [Tamiflu] 75 mg PO BID #4 capsule 06/10/18 guaiFENesin [Mucinex] 600 mg PO BID tablet 06/10/18 Ondansetron Odt [Zofran] 4 mg TL Q6H PRN #10 tablet 07/03/18 Oxycodone HCl/Acetaminophen 1 - 2 each PO Q6H PRN #25 tablet 07/03/18 [Percocet 5-325 mg Tablet] Tamsulosin [Flomax] 0.4 mg PO DAILY #20 capsule 07/03/18 dexAMETHasone [Decadron] 4 mg PO DAILY #5 tablet 07/03/18 Ondansetron Odt [Zofran] 4 mg TL Q6H PRN #10 tablet 08/17/18 Oxycodone HCl/Acetaminophen 1 - 2 each PO Q6H PRN #14 tablet 08/17/18 [Percocet 5-325 mg Tablet] Ondansetron Odt [Zofran] 4 mg TL Q6H PRN #10 tablet 10/26/18 Oxycodone HCl/Acetaminophen 1 - 2 each PO Q6H PRN #14 tablet 10/26/18 [Percocet 5-325 mg Tablet] Oxycodone HCl/Acetaminophen 1 - 2 each PO Q6H PRN #14 tablet 11/27/18 [Percocet 5-325 mg Tablet] Oxycodone HCl/Acetaminophen 1 - 2 each PO Q6H PRN #20 tablet 12/09/18 [Percocet 5-325 mg Tablet] Ondansetron Odt [Zofran] 4 mg TL Q6H PRN #10 tablet 12/25/18 Oxycodone HCl/Acetaminophen 1 each PO Q4H PRN #20 tablet 12/25/18 [Percocet 7.5-325 mg Tablet] dexAMETHasone [Decadron] 4 mg PO DAILY #5 tablet 12/25/18 Oxycodone HCl/Acetaminophen 1 - 2 each PO Q6H PRN #14 tablet 03/03/19 [Percocet 5-325 mg Tablet] - Allergies Allergies/Adverse Reactions: Allergies Allergy/AdvReac Type Severity Reaction Status Date / Time chlorpromazine HCl * Allergy Unknown Verified 10/26/18 18:52 [From Thorazine] droperidol [From Inapsine] Allergy Unknown Verified 10/26/18 18:52 ketorolac tromethamine * Allergy Unknown Verified 10/26/18 18:52 [From Toradol] meperidine HCl * Allergy Unknown Verified 10/26/18 18:52 [From Demerol] metoclopramide HCl * Allergy Unknown Verified 10/26/18 18:52 [From Reglan] morphine Allergy Unknown Verified 10/26/18 18:52 prochlorperazine edisylate * Allergy Unknown Verified 10/26/18 18:52 [From Compazine] prochlorperazine maleate * Allergy Unknown Verified 10/26/18 18:52 [From Compazine] [id number] Antimigraine Allergy Unknown Verified 10/26/18 18:52 Agents lorazepam [From Ativan] AdvReac Anxiety Verified 10/26/18 18:52 - Social History Does the pt smoke?: No Smoking Status: Never smoker Does the pt drink ETOH?: No Does the pt have substance abuse?: No - Immunizations Immunizations are current?: Yes Immunizations: TDAP current <10years, Other immun not current - POLST Patient has POLST: No POLST Status: Full Code (Daughter is her DURABLE POWER OF CHICKEN RAISER. She would like to be full code, but if there is significant cognitive deficits as a result of her illnesses, she wants us to let her go.) PD ED PE NORMAL - Vitals Vital signs reviewed: Yes - General General: Alert and oriented X 3, Well developed/nourished, Other (appears to be in mild/moderate discomfort) - Cardiac Cardiac: No murmur - Respiratory Respiratory: No respiratory distress, Clear bilaterally - Abdomen Abdomen: Soft, Non tender - Back Back: Other (bilateral CVA tenderness, R>L) - Derm Derm: No rash PD ED PE EXPANDED - Cardiac Cardiac: Tachy, Regular Rhythm Results - Vitals Vitals: Vital Signs - 24 hr 03/03/19 03/03/19 20:03 21:34 Temperature 36.8 C Heart Rate 110 H 96 Respiratory 20 20 Rate Blood Pressure 150/105 H 148/98 H O2 Saturation 99 100 Oxygen O2 Source [Without Activity] Room air O2 Source Room air - Labs Labs: Laboratory Tests 03/03/19 20:10 Urine Color YELLOW Urine Clarity HAZY Urine pH 5.5 Ur Specific [place] 1.020 Urine Protein NEGATIVE Urine Glucose (UA) NEGATIVE Urine Ketones TRACE Urine Occult Blood TRACE-INTA Urine Nitrite NEGATIVE Urine Bilirubin NEGATIVE Urine Urobilinogen 0.2 (NORMAL) Ur Leukocyte Esterase NEGATIVE Urine RBC 0-5 Urine WBC 0-3 Ur Squamous Epith Cells MANY Squamous H Urine Bacteria Few Urine Mucus Few Strands Urine Culture Comments NOT INDICATED PD MEDICAL DECISION MAKING - ED course Complexity details: reviewed old records, reviewed results, re-evaluated patient, considered differential, d/w patient ED course: Patient states she had CT A/P last month at ED demonstrating kidney stone "two-thirds of the way down", which would suggest ureteral calculus. She has had CT A/P at [facility], most recently April 2018, which demonstrated calculi in both the right ureter as well as right intrarenal calculus. Given this information and her symptoms being same as previous episodes of renal colic (per patient), no imaging performed at this time. Will focus on symptom control, and she will f/u with her urologist, return if worse. Departure - Departure Disposition: 01 Home, Self Care Clinical Impression: Renal colic Condition: Good Instructions: ED Stone Renal W Colic Follow-Up: SANDEEP JONES MD [Primary Care Provider] - Prescriptions: Oxycodone HCl/Acetaminophen [Percocet 5-325 mg Tablet] 1 - 2 each PO Q6H PRN #14 tablet PRN Reason: pain Discharge Date/Time: 03/03/19 21:34
[2019-03-03 20:29] LABS: BILIRUBIN,URINE NEGATIVE (NEGATIVE); GLUCOSE, URINE (UA) NEGATIVE (NEGATIVE); KETONES,URINE (UA) TRACE mg/dL (NEGATIVE); LEUKOCYTE ESTERASE, URINE NEGATIVE (NEGATIVE); NITRITE,URINE NEGATIVE (NEGATIVE); OCCULT BLOOD,URINE TRACE-INTA (NEGATIVE); PH,URINE 5.5 PH (5.0-7.5); PROTEIN,URINE NEGATIVE (NEGATIVE); UROBILINOGEN,URINE 0.2 (NORMAL) E.U./dL (NORMAL)
[2019-03-03 20:31] LABS: CLARITY,URINE HAZY (CLEAR)
[2019-03-03] MEDS ORDERED: HYDROmorphone 1 MG/ML CARPUJECT IM STA (20:44)
[2019-03-03] MEDS ORDERED: ONDANSETRON ODT 4 MG TABLET TL STA (20:44)
[2019-03-03 20:45] LABS: BACTERIA,URINE Few /HPF (None Seen); RBC,URINE 0-5 /HPF (0-5); SQUAMOUS EPITHELIAL CELL,UR MANY Squamous (<= Few)
[2019-03-03 20:46] LABS: MUCUS,URINE Few Strands
[2019-03-03] MEDS ORDERED: oxyCODONE/ACET 5/325 Prepack 4 PO STA (20:46)
[2019-03-03 21:35] VITALS: BP 148/98
== END 2019-03-03 21:34 | disposition home or self-care (01) ==
LOC: ED 19:43
DX: N23 Unspecified renal colic (principal); I10 Essential (primary) hypertension
CPT/HCPCS: 81001; 99283; J1170; Q0162; 87086

== ENCOUNTER 2019-05-12 17:29 | Outpatient (CLI) | payer MEDICARE, MEDICAID | END 2019-05-12 17:30 | disposition critical access hospital (66) | LOC: EMS 17:29 | PROVIDERS: ATTEND Surgery | DX: M54.9 Dorsalgia, unspecified (principal); R32 Unspecified urinary incontinence; F41.9 Anxiety disorder, unspecified | CPT/HCPCS: A0425; A0429 ==

== ENCOUNTER 2019-05-12 17:53 | Emergency (ER) | payer MEDICARE, MEDICAID ==
[~2019-05-12 17:53] MED LIST: SODIUM CHLORIDE 0.9% 1,000 ML IV ONE
[2019-05-12] MEDS ORDERED: HYDROmorphone 1 MG/ML CARPUJECT IVP STA (17:57)
[2019-05-12] MEDS ORDERED: ONDANSETRON 4 MG/2 ML VIAL IVP STA (17:57)
--- NOTE | 2019-05-12 17:59 | ED Physician Documentation ---
PD HPI ABD PAIN - Stated complaint Stated Complaint: FLANK PX - Chief complaint Chief Complaint: Abd Pain - History obtained from History obtained from: Patient (58-year-old woman with history of recurrent renal colic, status post multiple interventions presents with 3 days of right flank pain associated with nausea. She is worried because she has some other symptoms that remind her of prior urosepsis including feeling like she is crawling out of her skin weakness and dizziness. She does not usually get that with most of her kidney stones but again it reminds her of an episode of urosepsis she had about 3 years ago. No fevers but she has had chills. She has hematuria but no other urinary complaints except for frequency. No dysuria or foul smell. She denies cough. She says she maybe is mildly short of breath but she thinks it is from the pain.) Review of Systems Ten Systems: 10 systems reviewed and negative Constitutional: reports: Chills, Fatigue. denies: Fever Cardiac: denies: Chest pain / pressure, Palpitations Respiratory: denies: Cough GI: reports: Abdominal Pain, Nausea. denies: Vomiting, Diarrhea PD PAST MEDICAL HISTORY - Past Medical History Cardiovascular: Congestive heart failure, Hypertension Respiratory: Asthma, Shortness of breath Neuro: Migraines, Seizure disorder Endocrine/Autoimmune: HyPOthyroidism GI: None PROJECTS MANAGER: None : Incontinence, Frequency, Kidney stones HEENT: None Psych: Depression, Anxiety, Bipolar disorder Musculoskeletal: Osteoarthritis, Fibromyalgia, Chronic back pain Derm: None - Past Surgical History Past Surgical History: Yes General: Other Ortho: Arthroscopic surgery /PROJECTS MANAGER: section, Hysterectomy, Oophrectomy, Breast reduction HEENT: Tonsil/Adenoidectomy - Present Medications Home Medications: Ambulatory Orders Medication Instructions Recorded Confirmed Albuterol Sulfate [Proventil Hfa] 6.7 gm IH 05/12/19 Amlodipine Besylate [Norvasc] 10 mg PO 05/12/19 Aspirin 81 mg PO 05/12/19 Butalbital/Aspirin/Caffeine 1 each PO 05/12/19 [Fiorinal 50-325-40 mg Capsule] Celecoxib [CeleBREX] 300 mg PO BID 05/12/19 05/12/19 Ciprofloxacin [Cipro] 250 mg PO Q12H #10 tablet 05/12/19 Duloxetine HCl [Cymbalta] 60 mg PO 05/12/19 05/12/19 Escitalopram Oxalate [Lexapro] 20 mg PO 05/12/19 Estrogens, Conjugated [Premarin] 1.25 mg PO 05/12/19 Levothyroxine [Synthroid] 300 mcg ORAL DAILY 05/12/19 05/12/19 Lisinopril [Zestril] 10 mg PO 05/12/19 Multivitamin [Daily Multiple 1 each PO 05/12/19 Vitamin] Norflex 05/12/19 Stadol Ns 1 spray NS 05/12/19 Tamsulosin HCl [Flomax] 0.4 mg PO 05/12/19 Tumeric 05/12/19 diphenhydrAMINE [Benadryl] 25 mg PO DAILY PM 05/12/19 05/12/19 oxyCODONE/ACET 5/325 [Percocet 5 1 each PO Q4-6H PRN 05/12/19 05/12/19 mg/325 mg] - Allergies Allergies/Adverse Reactions: Allergies Allergy/AdvReac Type Severity Reaction Status Date / Time chlorpromazine HCl * Allergy Unknown Verified 10/26/18 18:52 [From Thorazine] droperidol [From Inapsine] Allergy Unknown Verified 10/26/18 18:52 ketorolac tromethamine * Allergy Unknown Verified 10/26/18 18:52 [From Toradol] meperidine HCl * Allergy Unknown Verified 10/26/18 18:52 [From Demerol] metoclopramide HCl * Allergy Unknown Verified 10/26/18 18:52 [From Reglan] morphine Allergy Unknown Verified 10/26/18 18:52 prochlorperazine edisylate * Allergy Unknown Verified 10/26/18 18:52 [From Compazine] prochlorperazine maleate * Allergy Unknown Verified 10/26/18 18:52 [From Compazine] tramadol Allergy Unknown Verified 05/12/19 18:01 [id number] Antimigraine Allergy Unknown Verified 10/26/18 18:52 Agents lorazepam [From Ativan] AdvReac Anxiety Verified 10/26/18 18:52 - Social History Does the pt smoke?: No Smoking Status: Never smoker Does the pt drink ETOH?: No Does the pt have substance abuse?: No - Immunizations Immunizations are current?: Yes Immunizations: TDAP current <10years, Other immun not current - POLST Patient has POLST: No POLST Status: Full Code (Daughter is her DURABLE POWER OF VIDEO PLAYER MECHANIC. She would like to be full code, but if there is significant cognitive deficits as a result of her illnesses, she wants us to let her go.) PD ED PE NORMAL - Vitals Vital signs reviewed: Yes - General General: Alert and oriented X 3, No acute distress - HEENT HEENT: PERRL, EOMI - Neck Neck: Supple, no meningeal sign, No bony TTP - Cardiac Cardiac: RRR, No murmur - Respiratory Respiratory: No respiratory distress, Clear bilaterally - Abdomen Abdomen: Normal bowel sounds, Soft, Non tender, Other (Tender to the right flank , no abdominal tenderness.) - Derm Derm: Normal color, Warm and dry - Extremities Extremities: No deformity, No tenderness to palpate, No edema, No calf tenderness / cord - Neuro Neuro: Alert and oriented X 3, Normal speech Results - Vitals Vitals: Vital Signs - 24 hr 05/12/19 05/12/19 05/12/19 17:56 18:55 19:46 Temperature 37.2 C Heart Rate 97 98 98 Respiratory 18 18 18 Rate Blood Pressure 139/108 H 129/103 H 180/107 H O2 Saturation 98 97 96 Oxygen O2 Source [Without Activity] Room air O2 Source Room air - Labs Labs: Laboratory Tests 05/12/19 05/12/19 05/12/19 18:10 18:10 18:10 WBC 9.3 RBC 4.53 Hgb 13.1 Hct 40.5 MCV 89.4 MCH 28.9 MCHC 32.3 RDW 13.9 Plt Count 291 MPV 9.2 Neut # (Auto) 6.1 Lymph # (Auto) 2.1 [place] # (Auto) 0.6 Eos # (Auto) 0.4 Baso # (Auto) 0.1 Absolute Nucleated RBC 0.00 Nucleated RBC % 0.0 Sodium 141 Potassium 4.0 Chloride 105 Carbon Dioxide 23 Anion Gap 13.0 BUN 21 H Creatinine 1.1 H Estimated GFR (MDRD) 51 L Glucose 115 H Lactic Acid 1.5 Calcium 8.6 Total Bilirubin 0.4 AST 22 ALT 22 Alkaline Phosphatase 55 Total Protein 6.7 Albumin 3.9 Globulin 2.8 Albumin/Globulin Ratio 1.4 Lipase 22 Urine Color Urine Clarity Urine pH Ur Specific [place] Urine Protein Urine Glucose (UA) Urine Ketones Urine Occult Blood Urine Nitrite Urine Bilirubin Urine Urobilinogen Ur Leukocyte Esterase Urine RBC Urine WBC Ur Squamous Epith Cells Urine Bacteria Ur Microscopic Review Urine Culture Comments 05/12/19 18:15 WBC RBC Hgb Hct MCV MCH MCHC RDW Plt Count MPV Neut # (Auto) Lymph # (Auto) [place] # (Auto) Eos # (Auto) Baso # (Auto) Absolute Nucleated RBC Nucleated RBC % Sodium Potassium Chloride Carbon Dioxide Anion Gap BUN Creatinine Estimated GFR (MDRD) Glucose Lactic Acid Calcium Total Bilirubin AST ALT Alkaline Phosphatase Total Protein Albumin Globulin Albumin/Globulin Ratio Lipase Urine Color RED/BLOODY Urine Clarity BLOODY Urine pH 6.0 Ur Specific [place] 1.025 Urine Protein TRACE Urine Glucose (UA) NEGATIVE Urine Ketones NEGATIVE Urine Occult Blood LARGE H Urine Nitrite NEGATIVE Urine Bilirubin NEGATIVE Urine Urobilinogen 0.2 (NORMAL) Ur Leukocyte Esterase TRACE H Urine RBC TNTC H Urine WBC 0-3 Ur Squamous Epith Cells RARE Squamous Urine Bacteria None Seen Ur Microscopic Review INDICATED Urine Culture Comments INDICATED - Rads (name of study) CT KUB Radiology: EMP read contemporaneously (5x3mm distal R ureteral stone) Procedures - General procedure General procedure: She was difficult for IV access, I personally placed a long 22-gauge IV in the right deep brachial vein region using real-time ultrasound guidance after ChloraPrep which flushed and toño well. PD MEDICAL DECISION MAKING - ED course ED course: 58-year-old woman with recurrent renal colic presents with symptoms of same but she has some concern for urosepsis. There is no fever, no white count. Her urine is only concerning from the standpoint of trace leukocyte Estrace, she has no white cells, no bacteriuria, no nitrite. I suspect this is inconsequential but she is put on ciprofloxacin out of an abundance of caution pending follow- up. She was given a copy of her CAT scan to aid in follow-up with her urologist. She can stop the antibiotics in a few days when the urine culture is negative which I suspect it will be. She has pain meds at home. Departure - Departure Disposition: Home, Self Care Clinical Impression: Renal colic Condition: Good Record reviewed to determine appropriate education?: Yes Instructions: ED Stone Renal W Colic Prescriptions: Ciprofloxacin [Cipro] 250 mg PO Q12H #10 tablet Comments: As discussed, your CAT scan shows a 5 x 3 mm kidney stone. Follow-up with your urologist if not better in a few days. Also follow-up with Dr. Neely Monday or Monday, you have trace leukocyte esterase in your urine but no other signs of infection. I suspect there is no urinary tract infection given the lack of fever and white count. That said we are putting you on antibiotics out of an abundance of caution, Dr. Neely can stop the antibiotics in 2 to 3 days if the urine culture is negative. Return anytime for new or worsening symptoms.
[2019-05-12 18:17] LABS: BASOPHILS # (AUTO) 0.1 10^3/uL (0.0-0.1); BASOPHILS % (AUTO) 0.6 %; EOSINOPHILS # (AUTO) 0.4 10^3/uL (0.0-0.7); EOSINOPHILS % (AUTO) 4.7 %; HGB - HEMOGLOBIN 13.1 g/dL (12.0-16.0); LYMPHOCYTES # (AUTO) 2.1 10^3/uL (1.5-3.5); LYMPHOCYTES % (AUTO) 22.4 %; MEAN CORPUSCULAR HEMOGLOBIN 28.9 pg (27.0-31.0); MEAN CORPUSCULAR HGB CONC 32.3 g/dL (32.0-36.0); MEAN CORPUSCULAR VOLUME 89.4 fL (81.0-99.0); MEAN PLATELET VOLUME 9.2 fL (7.9-10.8); MONOCYTES # (AUTO) 0.6 10^3/uL (0.0-1.0); MONOCYTES % (AUTO) 6.6 %; NEUTROPHILS # (AUTO) 6.1 10^3/uL (1.5-6.6); NEUTROPHILS % (AUTO) 65.4 %; PLT - PLATELET COUNT 291 10^3/uL (130-450); RED BLOOD COUNT 4.53 10^6/uL (4.20-5.40); RED CELL DISTRIBUTION WIDTH 13.9 % (12.0-15.0); WHITE BLOOD COUNT 9.3 x10^3/uL (4.8-10.8)
[2019-05-12 18:24] LABS: BILIRUBIN,URINE NEGATIVE (NEGATIVE); GLUCOSE, URINE (UA) NEGATIVE (NEGATIVE); KETONES,URINE (UA) NEGATIVE (NEGATIVE); LEUKOCYTE ESTERASE, URINE TRACE (NEGATIVE); NITRITE,URINE NEGATIVE (NEGATIVE); OCCULT BLOOD,URINE LARGE (NEGATIVE); PROTEIN,URINE TRACE mg/dL (NEGATIVE); UROBILINOGEN,URINE 0.2 (NORMAL) E.U./dL (NORMAL)
[2019-05-12 18:25] LABS: CLARITY,URINE BLOODY (CLEAR)
[2019-05-12 18:33] LABS: ALBUMIN 3.9 g/dL (3.2-5.5); ALBUMIN/GLOBULIN RATIO 1.4 (1.0-2.2); BILIRUBIN,TOTAL 0.4 mg/dL (0.2-1.0); CALCIUM 8.6 mg/dL (8.5-10.3); CREATININE 1.1 mg/dL (0.4-1.0); TOTAL PROTEIN 6.7 g/dL (6.7-8.2)
[2019-05-12 18:40] LABS: BACTERIA,URINE None Seen /HPF (None Seen); RBC,URINE TNTC /HPF (0-5); SQUAMOUS EPITHELIAL CELL,UR RARE Squamous (<= Few)
--- NOTE | 2019-05-12 19:06 | CT Report ---
Reason: Right flank pain Procedure Date: 05/12/2019 Accession Number: [id number] / [id number] Procedure: CT - Abdomen/Pelvis WO CPT Code: Final Report FULL RESULT: EXAM: CT ABDOMEN AND PELVIS (CT KUB) EXAM DATE: 05/12/2019 06:30 PM. CLINICAL HISTORY: Right flank pain. COMPARISONS: ABDOMEN/PELVIS W/O 05/13/2018 6:24 PM. TECHNIQUE: Routine axial helical CT imaging was performed through the abdomen and pelvis without IV contrast. Reconstructions: Coronal and sagittal. In accordance with CT protocol optimization, one or more of the following dose reduction techniques were utilized for this exam: automated exposure control, adjustment of mA and/or KV based on patient size, or use of iterative reconstructive technique. FINDINGS: Lung Bases: Unremarkable. Right Kidney/Ureter: There is a 5 x 3 mm distal right ureteral stone resulting in minimal ureteral and renal pelvis dilatation. There is no perinephric stranding. No additional calculi seen. The right kidney is mildly atrophic with lobulated contours. Left Kidney/Ureter: No stones, hydronephrosis, or hydroureter. No perinephric fat stranding. Other Solid Organs: Noncontrast images of the solid organs are grossly unremarkable. Gallbladder/Bile Ducts: Unremarkable. Peritoneal Cavity: The appendix is normal. No small bowel obstruction. No free air or fluid collections. Pelvic Organs: No bladder stones or wall thickening. Noncontrast images of the visualized pelvic organs are unremarkable. Vasculature: Unremarkable. Other: None. IMPRESSION: 1. Minimally obstructing 5 x 3 mm distal right ureteral stone. RADIA
[2019-05-12] MEDS ORDERED: ONDANSETRON ODT 4 MG TABLET TL STA (19:07)
[2019-05-12] MEDS ORDERED: HYDROmorphone 1 MG/ML CARPUJECT IM STA ×2 (19:07→19:37)
[2019-05-12] MEDS ORDERED: CIPROFLOXACIN 250 MG TABLET PO STA (20:14)
[2019-05-12 20:25] VITALS: BP 148/109
== END 2019-05-12 20:25 | disposition home or self-care (01) ==
LOC: EDUNIT# → ED 17:53
DX: N20.1 Calculus of ureter (principal); I10 Essential (primary) hypertension; Z79.82 Long term (current) use of aspirin
CPT/HCPCS: 36415; 74176; 80053; 81001; 83605; 83690; 85025; 87040; 87086; 96372; 96374; 99284; 99285; A9270; J1170; Q0162; 81003

== ENCOUNTER 2019-08-29 18:34 | Outpatient (CLI) | payer MEDICARE, MEDICAID | END 2019-08-29 18:35 | disposition critical access hospital (66) | LOC: EMS 18:34 | PROVIDERS: ATTEND Surgery | DX: R10.9 Unspecified abdominal pain (principal) | CPT/HCPCS: A0425; A0429 ==

== ENCOUNTER 2019-08-29 19:01 | Emergency (ER) | payer MEDICARE, MEDICAID ==
[2019-08-29] MEDS ORDERED: HYDROmorphone 1 MG/ML CARPUJECT IVP STA ×5 (19:05→22:11)
[2019-08-29 19:18] LABS: BILIRUBIN,URINE NEGATIVE (NEGATIVE); GLUCOSE, URINE (UA) NEGATIVE (NEGATIVE); KETONES,URINE (UA) NEGATIVE (NEGATIVE); LEUKOCYTE ESTERASE, URINE NEGATIVE (NEGATIVE); NITRITE,URINE NEGATIVE (NEGATIVE); OCCULT BLOOD,URINE NEGATIVE (NEGATIVE); PH,URINE 5.5 PH (5.0-7.5); PROTEIN,URINE NEGATIVE (NEGATIVE); UROBILINOGEN,URINE 0.2 (NORMAL) E.U./dL (NORMAL)
[2019-08-29 19:25] LABS: CLARITY,URINE CLEAR (CLEAR)
[2019-08-29 19:38] LABS: BASOPHILS # (AUTO) 0.1 10^3/uL (0.0-0.1); BASOPHILS % (AUTO) 0.8 %; EOSINOPHILS # (AUTO) 0.5 10^3/uL (0.0-0.7); EOSINOPHILS % (AUTO) 4.4 %; HGB - HEMOGLOBIN 14.9 g/dL (12.0-16.0); LYMPHOCYTES # (AUTO) 3.1 10^3/uL (1.5-3.5); LYMPHOCYTES % (AUTO) 30.3 %; MEAN CORPUSCULAR HEMOGLOBIN 29.4 pg (27.0-31.0); MEAN CORPUSCULAR VOLUME 92.1 fL (81.0-99.0); MEAN PLATELET VOLUME 9.3 fL (7.9-10.8); MONOCYTES # (AUTO) 0.7 10^3/uL (0.0-1.0); NEUTROPHILS # (AUTO) 5.8 10^3/uL (1.5-6.6); NEUTROPHILS % (AUTO) 56.6 %; PLT - PLATELET COUNT 301 10^3/uL (130-450); RED BLOOD COUNT 5.06 10^6/uL (4.20-5.40); RED CELL DISTRIBUTION WIDTH 13.4 % (12.0-15.0); WHITE BLOOD COUNT 10.2 x10^3/uL (4.8-10.8)
[2019-08-29] MEDS ORDERED: ONDANSETRON 4 MG/2 ML VIAL IVP STA ×2 (19:41→20:22)
--- NOTE | 2019-08-29 19:42 | ED Physician Documentation ---
PD HPI ABD PAIN - Stated complaint Stated Complaint: R FLANK PN - Chief complaint Chief Complaint: Abd Pain - History obtained from History obtained from: Patient (This is a 58-year-old woman with recurrent problems with renal colic. She is had right flank pain typical for her kidney stones about the last 2 days. It waxes and wanes. Is associate with nausea and vomiting. Last CT was in April of this year at which time she had a 5 x 3 mm distal right ureteral stone.) Review of Systems Constitutional: denies: Fever, Chills GI: reports: Nausea, Vomiting. denies: Abdominal Pain : denies: Dysuria, Frequency PD PAST MEDICAL HISTORY - Past Medical History Cardiovascular: Congestive heart failure, Hypertension Respiratory: Asthma, Shortness of breath Neuro: Migraines, Seizure disorder Endocrine/Autoimmune: HyPOthyroidism GI: None BALLOON ARTIST: None : Incontinence, Frequency, Kidney stones HEENT: None Psych: Depression, Anxiety, Bipolar disorder Musculoskeletal: Osteoarthritis, Fibromyalgia, Chronic back pain Derm: None - Past Surgical History Past Surgical History: Yes General: Other Ortho: Arthroscopic surgery /BALLOON ARTIST: section, Hysterectomy, Oophrectomy, Breast reduction HEENT: Tonsil/Adenoidectomy - Present Medications Home Medications: Ambulatory Orders Medication Instructions Recorded Confirmed Albuterol Sulfate [Proventil Hfa] 6.7 gm IH 05/12/19 Amlodipine Besylate [Norvasc] 10 mg PO 05/12/19 Aspirin 81 mg PO 05/12/19 Butalbital/Aspirin/Caffeine 1 each PO 05/12/19 [Fiorinal 50-325-40 mg Capsule] Celecoxib [CeleBREX] 300 mg PO BID 05/12/19 05/12/19 Ciprofloxacin [Cipro] 250 mg PO Q12H #10 tablet 05/12/19 Duloxetine HCl [Cymbalta] 60 mg PO 05/12/19 05/12/19 Escitalopram Oxalate [Lexapro] 20 mg PO 05/12/19 Estrogens, Conjugated [Premarin] 1.25 mg PO 05/12/19 Levothyroxine [Synthroid] 300 mcg ORAL DAILY 05/12/19 05/12/19 Lisinopril [Zestril] 10 mg PO 05/12/19 Multivitamin [Daily Multiple 1 each PO 05/12/19 Vitamin] Norflex 05/12/19 Stadol Ns 1 spray NS 05/12/19 Tamsulosin HCl [Flomax] 0.4 mg PO 05/12/19 Tumeric 05/12/19 diphenhydrAMINE [Benadryl] 25 mg PO DAILY PM 05/12/19 05/12/19 oxyCODONE/ACET 5/325 [Percocet 5 1 each PO Q4-6H PRN 05/12/19 05/12/19 mg/325 mg] - Allergies Allergies/Adverse Reactions: Allergies Allergy/AdvReac Type Severity Reaction Status Date / Time chlorpromazine HCl * Allergy Unknown Verified 10/26/18 18:52 [From Thorazine] droperidol [From Inapsine] Allergy Unknown Verified 10/26/18 18:52 ketorolac tromethamine * Allergy Unknown Verified 10/26/18 18:52 [From Toradol] meperidine HCl * Allergy Unknown Verified 10/26/18 18:52 [From Demerol] metoclopramide HCl * Allergy Unknown Verified 10/26/18 18:52 [From Reglan] morphine Allergy Unknown Verified 10/26/18 18:52 prochlorperazine edisylate * Allergy Unknown Verified 10/26/18 18:52 [From Compazine] prochlorperazine maleate * Allergy Unknown Verified 10/26/18 18:52 [From Compazine] tramadol Allergy Unknown Verified 05/12/19 18:01 [id number] Antimigraine Allergy Unknown Verified 10/26/18 18:52 Agents lorazepam [From Ativan] AdvReac Anxiety Verified 10/26/18 18:52 - Social History Does the pt smoke?: No Smoking Status: Never smoker Does the pt drink ETOH?: No Does the pt have substance abuse?: No - Immunizations Immunizations are current?: Yes Immunizations: TDAP current <10years, Other immun not current - POLST Patient has POLST: No POLST Status: Full Code (Daughter is her DURABLE POWER OF CATTLE FARMER. She would like to be full code, but if there is significant cognitive deficits as a result of her illnesses, she wants us to let her go.) PD ED PE NORMAL - Vitals Vital signs reviewed: Yes - General General: Alert and oriented X 3, No acute distress - Abdomen Abdomen: Soft, Non tender - Back Back: No CVA TTP - Neuro Neuro: Alert and oriented X 3, Normal speech Results - Vitals Vitals: Vital Signs - 24 hr 08/29/19 08/29/19 08/29/19 19:21 21:28 22:41 Temperature 36.8 C Heart Rate 104 H 83 80 Respiratory 20 18 18 Rate Blood Pressure 164/125 H 141/83 H 144/86 H O2 Saturation 94 98 97 Oxygen O2 Source [Without Activity] Room air O2 Source Room air - Labs Labs: Laboratory Tests 08/29/19 08/29/19 08/29/19 19:10 19:25 19:25 WBC 10.2 RBC 5.06 Hgb 14.9 Hct 46.6 MCV 92.1 MCH 29.4 MCHC 32.0 RDW 13.4 Plt Count 301 MPV 9.3 Neut # (Auto) 5.8 Lymph # (Auto) 3.1 [place] # (Auto) 0.7 Eos # (Auto) 0.5 Baso # (Auto) 0.1 Absolute Nucleated RBC 0.00 Nucleated RBC % 0.0 Sodium 141 Potassium 4.2 Chloride 105 Carbon Dioxide 25 Anion Gap 11.0 BUN 31 H Creatinine 1.0 Estimated GFR (MDRD) 57 L Glucose 107 H Calcium 9.0 Total Bilirubin 0.5 AST 21 ALT 23 Alkaline Phosphatase 82 Total Protein 7.3 Albumin 4.0 Globulin 3.3 Albumin/Globulin Ratio 1.2 Lipase 50 Urine Color YELLOW Urine Clarity CLEAR Urine pH 5.5 Ur Specific [place] >=1.030 H Urine Protein NEGATIVE Urine Glucose (UA) NEGATIVE Urine Ketones NEGATIVE Urine Occult Blood NEGATIVE Urine Nitrite NEGATIVE Urine Bilirubin NEGATIVE Urine Urobilinogen 0.2 (NORMAL) Ur Leukocyte Esterase NEGATIVE Ur Microscopic Review NOT INDICATED Urine Culture Comments NOT INDICATED PD MEDICAL DECISION MAKING - ED course Complexity details: reviewed old records (previous CT in Apr; previous dx), re- evaluated patient (mult times after meds.), considered differential (but this is the same as prior), d/w patient Departure - Departure Disposition: 01 Home, Self Care Clinical Impression: Renal colic Condition: Good Record reviewed to determine appropriate education?: Yes Instructions: ED Stone Renal W Colic Comments: Followup with your urologist [facility]. Return as needed. Discharge Date/Time: 08/29/19 22:41
[2019-08-29 19:49] LABS: ALBUMIN/GLOBULIN RATIO 1.2 (1.0-2.2); BILIRUBIN,TOTAL 0.5 mg/dL (0.2-1.0); TOTAL PROTEIN 7.3 g/dL (6.7-8.2)
[2019-08-29] MEDS ORDERED: SODIUM CHLORIDE 0.9% 1,000 ML IV ONE (19:54)
[2019-08-29] MEDS ORDERED: PROMETHAZINE INJ 25 MG in SODIUM CHLORIDE 0.9% 50 ML IV STA (20:47)
[2019-08-29] MEDS ORDERED: LIDOCAINE-MPF 2% 10 ML in SODIUM CHLORIDE 0.9% 50 ML IV STA (21:46)
[2019-08-29 22:42] VITALS: BP 144/86
== END 2019-08-29 22:41 | disposition home or self-care (01) ==
LOC: EDUNIT# → ED 19:01
DX: N23 Unspecified renal colic (principal); Z87.442 Personal history of urinary calculi; R11.2 Nausea with vomiting, unspecified; I10 Essential (primary) hypertension; Z79.82 Long term (current) use of aspirin
CPT/HCPCS: 36415; 80053; 81003; 83690; 85025; 96361; 96365; 96367; 96375; 96376; 99283; 99284; J1170; J7040; 81001; 87086

== ENCOUNTER 2019-09-08 19:26 | Emergency (ER) | payer MEDICARE, MEDICAID ==
[2019-09-08 20:19] LABS: BILIRUBIN,URINE NEGATIVE (NEGATIVE); GLUCOSE, URINE (UA) NEGATIVE (NEGATIVE); KETONES,URINE (UA) TRACE mg/dL (NEGATIVE); LEUKOCYTE ESTERASE, URINE NEGATIVE (NEGATIVE); NITRITE,URINE NEGATIVE (NEGATIVE); OCCULT BLOOD,URINE NEGATIVE (NEGATIVE); PROTEIN,URINE TRACE mg/dL (NEGATIVE); UROBILINOGEN,URINE 0.2 (NORMAL) E.U./dL (NORMAL)
[2019-09-08 20:24] LABS: CLARITY,URINE CLEAR (CLEAR)
[2019-09-08 20:28] LABS: BASOPHILS # (AUTO) 0.1 10^3/uL (0.0-0.1); BASOPHILS % (AUTO) 0.6 %; EOSINOPHILS # (AUTO) 0.3 10^3/uL (0.0-0.7); EOSINOPHILS % (AUTO) 2.8 %; HGB - HEMOGLOBIN 15.1 g/dL (12.0-16.0); LYMPHOCYTES # (AUTO) 2.5 10^3/uL (1.5-3.5); LYMPHOCYTES % (AUTO) 21.6 %; MEAN CORPUSCULAR HEMOGLOBIN 29.9 pg (27.0-31.0); MEAN CORPUSCULAR HGB CONC 32.7 g/dL (32.0-36.0); MEAN CORPUSCULAR VOLUME 91.5 fL (81.0-99.0); MEAN PLATELET VOLUME 9.3 fL (7.9-10.8); MONOCYTES # (AUTO) 0.7 10^3/uL (0.0-1.0); MONOCYTES % (AUTO) 6.2 %; NEUTROPHILS # (AUTO) 7.8 10^3/uL (1.5-6.6); NEUTROPHILS % (AUTO) 68.1 %; PLT - PLATELET COUNT 312 10^3/uL (130-450); RED BLOOD COUNT 5.05 10^6/uL (4.20-5.40); RED CELL DISTRIBUTION WIDTH 13.2 % (12.0-15.0); WHITE BLOOD COUNT 11.5 x10^3/uL (4.8-10.8)
[2019-09-08 20:41] LABS: ALBUMIN 4.2 g/dL (3.2-5.5); ALBUMIN/GLOBULIN RATIO 1.4 (1.0-2.2); BILIRUBIN,TOTAL 0.4 mg/dL (0.2-1.0); CALCIUM 9.4 mg/dL (8.5-10.3); CREATININE 0.9 mg/dL (0.4-1.0); TOTAL PROTEIN 7.3 g/dL (6.7-8.2)
[2019-09-08] MEDS ORDERED: HYDROmorphone 1 MG/ML CARPUJECT IVP STA ×2 (20:51→21:52)
[2019-09-08] MEDS ORDERED: ONDANSETRON 4 MG/2 ML VIAL IVP STA (20:51)
[2019-09-08] MEDS ORDERED: SODIUM CHLORIDE 0.9% 1,000 ML IV STA (20:51)
--- NOTE | 2019-09-08 22:00 | CT Report ---
Reason: R flank pain, h/o renal stones Procedure Date: 09/08/2019 Accession Number: [id number] / [id number] Procedure: CT - Abdomen/Pelvis WO CPT Code: Final Report FULL RESULT: EXAM: CT ABDOMEN AND PELVIS EXAM DATE: 09/08/2019 09:24 PM. CLINICAL HISTORY: R flank pain, h/o renal stones. COMPARISONS: ABDOMEN/PELVIS W/O 05/12/2019 6:26 PM ABDOMEN/PELVIS W/O 05/13/2018 6:24 PM. TECHNIQUE: Routine helical CT imaging was performed through the abdomen and pelvis. IV contrast: No. Enteric contrast: No. Reconstructions: Coronal and sagittal. In accordance with CT protocol optimization, one or more of the following dose reduction techniques were utilized for this exam: automated exposure control, adjustment of mA and/or KV based on patient size, or use of iterative reconstructive technique. FINDINGS: Lung Bases: Unremarkable. Liver: The liver appears unchanged. Liver measures enlarged at 211 mm craniocaudal. Gallbladder/Bile Ducts: Unremarkable. Spleen: Normal in size and contour. Pancreas: Normal in size and contour. Adrenal Glands: Normal. Kidneys: No renal stones or hydronephrosis. There is a calcification in the right pelvis measuring 5 mm x 3 mm on image 124 which is unchanged since previous and may represent a nonobstructing ureter stone versus a pelvic calcification outside of the ureter. Peritoneal Cavity/Bowel: Stomach and duodenum appears within normal limits. There is stool present throughout the colon without bowel dilation. There is mild small bowel wall thickening in the central lower abdomen with a mild amount of increased density of the fat around the small bowel loop on image 91, raising possibility of enteritis. The appendix is well visualized and normal. Pelvic Organs: The urinary bladder is empty. Vasculature: The abdominal aorta is normal in caliber. Bones: There is multilevel chronic degenerative disk and endplate disease of the lumbar spine. Negative for acute fracture or subluxation. Other: None. IMPRESSION: 1. No renal stone or hydronephrosis. The 5 x 3 mm right pelvic calcification is unchanged since 05/12/2019 and may represent an incidental calcification outside of the ureter versus less likely nonobstructing ureter stone. 2. Mild to moderate constipation without mechanical bowel obstruction. 3. There are several mildly dilated small bowel loops with mild small bowel wall thickening raising suspicion for mild enteritis. 4. Mild hepatomegaly. RADIA
--- NOTE | 2019-09-08 22:11 | ED Physician Documentation ---
PD HPI ABD PAIN - Stated complaint Stated Complaint: RT FLANK PAIN - Chief complaint Chief Complaint: Abd Pain - History obtained from History obtained from: Patient - History of Present Illness Timing - onset: How many weeks ago (1) Timing - duration: Weeks (1) Timing - details: Gradual onset Pain level max: 10 Pain level now: 10 Quality: Aching, Pain Location: Other (Right flank) Improved by: Other (Nothing) Worsened by: Other (Nothing) Associated symptoms: Nausea. No: Fever, Vomiting, Hematemesis, Diarrhea, Constipation, Melena, Hematochezia, Dysuria, Hematuria - Additional information Additional information: 58-year-old female with a history of recurrent kidney stones presents to the emergency department with recurrent right flank pain. She states that this is similar to her prior kidney stones. Pain is not relieved with her pain medication at home. No fevers. Review of Systems Ten Systems: 10 systems reviewed and negative Constitutional: denies: Fever, Chills GI: denies: Vomiting, Diarrhea Skin: denies: Rash Musculoskeletal: denies: Neck pain, Back pain Neurologic: denies: Headache PD PAST MEDICAL HISTORY - Past Medical History Past Medical History: Yes Cardiovascular: Congestive heart failure, Hypertension Respiratory: Asthma, Shortness of breath Neuro: Migraines, Seizure disorder Endocrine/Autoimmune: HyPOthyroidism GI: None BONE CHAR OPERATOR: None : Incontinence, Frequency, Kidney stones HEENT: None Psych: Depression, Anxiety, Bipolar disorder Musculoskeletal: Osteoarthritis, Fibromyalgia, Chronic back pain Derm: None - Past Surgical History Past Surgical History: Yes General: Other Ortho: Arthroscopic surgery /BONE CHAR OPERATOR: section, Hysterectomy, Oophrectomy, Breast reduction HEENT: Tonsil/Adenoidectomy - Present Medications Home Medications: Ambulatory Orders Medication Instructions Recorded Confirmed Albuterol Sulfate [Proventil Hfa] 6.7 gm IH 05/12/19 Amlodipine Besylate [Norvasc] 10 mg PO 05/12/19 Aspirin 81 mg PO 05/12/19 Butalbital/Aspirin/Caffeine 1 each PO 05/12/19 [Fiorinal 50-325-40 mg Capsule] Celecoxib [CeleBREX] 300 mg PO BID 05/12/19 05/12/19 Duloxetine HCl [Cymbalta] 60 mg PO 05/12/19 05/12/19 Escitalopram Oxalate [Lexapro] 20 mg PO 05/12/19 Estrogens, Conjugated [Premarin] 1.25 mg PO 05/12/19 Levothyroxine [Synthroid] 300 mcg ORAL DAILY 05/12/19 05/12/19 Lisinopril [Zestril] 10 mg PO 05/12/19 Multivitamin [Daily Multiple 1 each PO 05/12/19 Vitamin] Norflex 05/12/19 Stadol Ns 1 spray NS 05/12/19 Tamsulosin HCl [Flomax] 0.4 mg PO 05/12/19 Tumeric 05/12/19 diphenhydrAMINE [Benadryl] 25 mg PO DAILY PM 05/12/19 05/12/19 oxyCODONE/ACET 5/325 [Percocet 5 1 each PO Q4-6H PRN 05/12/19 05/12/19 mg/325 mg] - Allergies Allergies/Adverse Reactions: Allergies Allergy/AdvReac Type Severity Reaction Status Date / Time chlorpromazine HCl * Allergy Unknown Verified 09/08/19 19:34 [From Thorazine] droperidol [From Inapsine] Allergy Unknown Verified 09/08/19 19:34 ketorolac tromethamine * Allergy Unknown Verified 09/08/19 19:34 [From Toradol] meperidine HCl * Allergy Unknown Verified 09/08/19 19:34 [From Demerol] metoclopramide HCl * Allergy Unknown Verified 09/08/19 19:34 [From Reglan] morphine Allergy Unknown Verified 09/08/19 19:34 prochlorperazine edisylate * Allergy Unknown Verified 09/08/19 19:34 [From Compazine] prochlorperazine maleate * Allergy Unknown Verified 09/08/19 19:34 [From Compazine] tramadol Allergy Unknown Verified 09/08/19 19:34 [id number] Antimigraine Allergy Unknown Verified 09/08/19 19:34 Agents lorazepam [From Ativan] AdvReac Anxiety Verified 10/26/18 18:52 - Social History Does the pt smoke?: No Smoking Status: Never smoker Does the pt drink ETOH?: No Does the pt have substance abuse?: No - Immunizations Immunizations are current?: Yes Immunizations: TDAP current <10years, Other immun not current - POLST Patient has POLST: No POLST Status: Full Code (Daughter is her DURABLE POWER OF PRESS SECRETARY. She would like to be full code, but if there is significant cognitive deficits as a result of her illnesses, she wants us to let her go.) PD ED PE NORMAL - Vitals Vital signs reviewed: Yes - General General: Alert and oriented X 3, No acute distress, Well developed/nourished - HEENT HEENT: Moist mucous membranes - Neck Neck: Supple, no meningeal sign - Cardiac Cardiac: RRR, Strong equal pulses - Respiratory Respiratory: No respiratory distress, Clear bilaterally - Abdomen Abdomen: Soft, Non tender, Non distended - Back Back: No CVA TTP, No spinal TTP - Derm Derm: Warm and dry, No rash - Extremities Extremities: No calf tenderness / cord - Neuro Neuro: Alert and oriented X 3 - Psych Psych: Normal mood, Normal affect Results - Vitals Vitals: Vital Signs - 24 hr 09/08/19 09/08/19 09/08/19 19:35 21:15 22:18 Temperature 36.5 C Heart Rate 98 101 H 84 Respiratory 16 18 16 Rate Blood Pressure 146/100 H 167/92 H 138/87 H O2 Saturation 95 97 100 09/08/19 22:26 Temperature 36.8 C Heart Rate 88 Respiratory 16 Rate Blood Pressure 136/78 H O2 Saturation 100 Oxygen O2 Source [Without Activity] Room air O2 Source Room air - Labs Labs: Laboratory Tests 09/08/19 09/08/19 09/08/19 20:10 20:20 20:20 WBC 11.5 H RBC 5.05 Hgb 15.1 Hct 46.2 MCV 91.5 MCH 29.9 MCHC 32.7 RDW 13.2 Plt Count 312 MPV 9.3 Neut # (Auto) 7.8 H Lymph # (Auto) 2.5 [place] # (Auto) 0.7 Eos # (Auto) 0.3 Baso # (Auto) 0.1 Absolute Nucleated RBC 0.00 Nucleated RBC % 0.0 Sodium 140 Potassium 3.9 Chloride 102 Carbon Dioxide 25 Anion Gap 13.0 BUN 28 H Creatinine 0.9 Estimated GFR (MDRD) 65 L Glucose 115 H Calcium 9.4 Total Bilirubin 0.4 AST 33 ALT 32 Alkaline Phosphatase 83 Total Protein 7.3 Albumin 4.2 Globulin 3.1 Albumin/Globulin Ratio 1.4 Lipase 24 Urine Color YELLOW Urine Clarity CLEAR Urine pH 5.0 Ur Specific [place] >=1.030 H Urine Protein TRACE Urine Glucose (UA) NEGATIVE Urine Ketones TRACE Urine Occult Blood NEGATIVE Urine Nitrite NEGATIVE Urine Bilirubin NEGATIVE Urine Urobilinogen 0.2 (NORMAL) Ur Leukocyte Esterase NEGATIVE Ur Microscopic Review NOT INDICATED Urine Culture Comments NOT INDICATED - Rads (name of study) CT abdomen pelvis Radiology: Prelim report reviewed, EMP read contemporaneously, See rad report (1. No renal stone or hydronephrosis. The 5 x 3 mm right pelvic calcification is unchanged since 05/12/2019 and may represent an incidental calcification outside of the ureter versus less likely nonobstructing ureter stone. 2. Mild to moderate constipation without mechanical bowel obstruction. 3. There are several mildly dilated small bowel loops with mild small bowel wall thickening raising suspicion for mild enteritis. 4. Mild hepatomegaly. ) PD MEDICAL DECISION MAKING - ED course Complexity details: reviewed results, re-evaluated patient, considered differential, d/w patient ED course: Patient is well-appearing, nontoxic. Afebrile. No ureteral stones on CT scan. Pain well controlled. Unclear etiology of her symptoms. No UTI. No pyelonephritis. We will have her continue her medication at home and have her follow-up with her doctor for further care. Patient counseled regarding signs and symptoms for which I believe and urgent re-evaluation would be necessary. Patient with good understanding of and agreement to plan and is comfortable going home at this time This document was made in part using voice recognition software. While efforts are made to proofread this document, sound alike and grammatical errors may occur. Departure - Departure Disposition: 01 Home, Self Care Clinical Impression: Right flank pain Condition: Good Instructions: ED Abdominal Pain Unkn Cause Follow-Up: SANDEEP JONES MD [Primary Care Provider] - Within 1 week Karen Sanchez MD [Physician No Access] - Comments: The cause of your symptoms is unclear today. Follow-up with your doctor for further care. Return if you worsen Discharge Date/Time: 09/08/19 22:27
[2019-09-08 22:27] VITALS: BP 136/78
== END 2019-09-08 22:27 | disposition home or self-care (01) ==
LOC: ED 19:26
DX: R10.9 Unspecified abdominal pain (principal); R11.0 Nausea; K59.00 Constipation, unspecified; Z87.442 Personal history of urinary calculi; I10 Essential (primary) hypertension; Z79.82 Long term (current) use of aspirin
CPT/HCPCS: 36415; 74176; 80053; 81003; 83690; 85025; 96361; 96374; 96375; 96376; 99284; J1170; 81001; 87086

== ENCOUNTER 2019-10-03 08:00 | Outpatient (CLI) | payer MEDICARE, MEDICAID | END 2019-10-03 23:59 | disposition home or self-care (01) | LOC: LAB.R 08:00 | PROVIDERS: ATTEND Family Medicine | DX: R30.0 Dysuria (principal) | CPT/HCPCS: 87086; 87181 ==

== ENCOUNTER 2019-10-18 12:01 | Emergency (ER) | payer MEDICARE, MEDICAID ==
[2019-10-18 12:38] LABS: BILIRUBIN,URINE NEGATIVE (NEGATIVE); GLUCOSE, URINE (UA) NEGATIVE (NEGATIVE); KETONES,URINE (UA) NEGATIVE (NEGATIVE); LEUKOCYTE ESTERASE, URINE LARGE (NEGATIVE); NITRITE,URINE NEGATIVE (NEGATIVE); OCCULT BLOOD,URINE LARGE (NEGATIVE); PROTEIN,URINE 100 mg/dL (NEGATIVE); UROBILINOGEN,URINE 0.2 (NORMAL) E.U./dL (NORMAL)
[2019-10-18 12:44] LABS: CLARITY,URINE CLOUDY (CLEAR); HCG UR QUAL NEGATIVE
[2019-10-18 12:48] LABS: BASOPHILS # (AUTO) 0.1 10^3/uL (0.0-0.1); BASOPHILS % (AUTO) 0.5 %; EOSINOPHILS # (AUTO) 0.3 10^3/uL (0.0-0.7); EOSINOPHILS % (AUTO) 1.4 %; HGB - HEMOGLOBIN 13.4 g/dL (12.0-16.0); LYMPHOCYTES # (AUTO) 1.1 10^3/uL (1.5-3.5); LYMPHOCYTES % (AUTO) 5.3 %; MEAN CORPUSCULAR HEMOGLOBIN 29.8 pg (27.0-31.0); MEAN CORPUSCULAR HGB CONC 32.3 g/dL (32.0-36.0); MEAN CORPUSCULAR VOLUME 92.4 fL (81.0-99.0); MEAN PLATELET VOLUME 9.2 fL (7.9-10.8); MONOCYTES # (AUTO) 1.1 10^3/uL (0.0-1.0); MONOCYTES % (AUTO) 5.4 %; NEUTROPHILS # (AUTO) 18.4 10^3/uL (1.5-6.6); NEUTROPHILS % (AUTO) 86.6 %; PLT - PLATELET COUNT 267 10^3/uL (130-450); RED BLOOD COUNT 4.49 10^6/uL (4.20-5.40); RED CELL DISTRIBUTION WIDTH 13.2 % (12.0-15.0); WHITE BLOOD COUNT 21.3 x10^3/uL (4.8-10.8)
--- NOTE | 2019-10-18 12:51 | ED Physician Documentation ---
History of Present Illness - Stated complaint Stated Complaint: FEMALE - Chief complaint Chief Complaint: Abd Pain - History obtained from History obtained from: Patient - History of Present Illness Timing: Today Pain level max: 9 Pain level now: 9 - Additonal information Additional information: 59-year-old female presents to the emergency department stating that she has had dysuria and urinary frequency for the past 24 hours. Also has right flank pain. History of renal stones in the past. Nothing makes it better or worse. No fevers. Has felt nauseated and had chills. Currently sees Dr. Sanchez for urology. Review of Systems Ten Systems: 10 systems reviewed and negative Constitutional: reports: Chills. denies: Fever Throat: denies: Sore throat Cardiac: denies: Chest pain / pressure Respiratory: denies: Cough GI: reports: Nausea. denies: Abdominal Pain, Vomiting, Diarrhea : reports: Dysuria, Frequency, Hesitancy Skin: denies: Rash Musculoskeletal: reports: Back pain (Right flank pain). denies: Neck pain PD PAST MEDICAL HISTORY - Past Medical History Past Medical History: Yes Cardiovascular: Congestive heart failure, Hypertension Respiratory: Asthma, Shortness of breath Neuro: Migraines, Seizure disorder Endocrine/Autoimmune: HyPOthyroidism GI: None NEWS CAMERA PERSON: None : Incontinence, Frequency, Kidney stones HEENT: None Psych: Depression, Anxiety, Bipolar disorder Musculoskeletal: Osteoarthritis, Fibromyalgia, Chronic back pain Derm: None - Past Surgical History Past Surgical History: Yes General: Other Ortho: Arthroscopic surgery /NEWS CAMERA PERSON: section, Hysterectomy, Oophrectomy, Breast reduction HEENT: Tonsil/Adenoidectomy - Present Medications Home Medications: Ambulatory Orders Medication Instructions Recorded Confirmed Albuterol Sulfate [Proventil Hfa] 6.7 gm IH 05/12/19 Amlodipine Besylate [Norvasc] 10 mg PO 05/12/19 Aspirin 81 mg PO 05/12/19 Butalbital/Aspirin/Caffeine 1 each PO 05/12/19 [Fiorinal 50-325-40 mg Capsule] Celecoxib [CeleBREX] 300 mg PO BID 05/12/19 05/12/19 Duloxetine HCl [Cymbalta] 60 mg PO 05/12/19 05/12/19 Escitalopram Oxalate [Lexapro] 20 mg PO 05/12/19 Estrogens, Conjugated [Premarin] 1.25 mg PO 05/12/19 Levothyroxine [Synthroid] 300 mcg ORAL DAILY 05/12/19 05/12/19 Lisinopril [Zestril] 10 mg PO 05/12/19 Multivitamin [Daily Multiple 1 each PO 05/12/19 Vitamin] Norflex 05/12/19 Stadol Ns 1 spray NS 05/12/19 Tamsulosin HCl [Flomax] 0.4 mg PO 05/12/19 Tumeric 05/12/19 diphenhydrAMINE [Benadryl] 25 mg PO DAILY PM 05/12/19 05/12/19 oxyCODONE/ACET 5/325 [Percocet 5 1 each PO Q4-6H PRN 05/12/19 05/12/19 mg/325 mg] - Allergies Allergies/Adverse Reactions: Allergies Allergy/AdvReac Type Severity Reaction Status Date / Time chlorpromazine HCl * Allergy Unknown Verified 10/18/19 12:12 [From Thorazine] droperidol [From Inapsine] Allergy Unknown Verified 10/18/19 12:12 ketorolac tromethamine * Allergy Unknown Verified 10/18/19 12:12 [From Toradol] meperidine HCl * Allergy Unknown Verified 10/18/19 12:12 [From Demerol] metoclopramide HCl * Allergy Unknown Verified 10/18/19 12:12 [From Reglan] morphine Allergy Unknown Verified 10/18/19 12:12 prochlorperazine edisylate * Allergy Unknown Verified 10/18/19 12:12 [From Compazine] prochlorperazine maleate * Allergy Unknown Verified 10/18/19 12:12 [From Compazine] tramadol Allergy Unknown Verified 10/18/19 12:12 [id number] Antimigraine Allergy Unknown Verified 10/18/19 12:12 Agents lorazepam [From Ativan] AdvReac Anxiety Verified 10/18/19 12:12 - Social History Does the pt smoke?: No Smoking Status: Never smoker Does the pt drink ETOH?: No Does the pt have substance abuse?: No - Immunizations Immunizations are current?: Yes Immunizations: TDAP current <10years, Other immun not current - POLST Patient has POLST: No POLST Status: Full Code (Daughter is her DURABLE POWER OF AMBULANCE DISPATCHER. She would like to be full code, but if there is significant cognitive deficits as a result of her illnesses, she wants us to let her go.) PD ED PE NORMAL - Vitals Vital signs reviewed: Yes - General General: Alert and oriented X 3, No acute distress, Other (Morbidly obese female) - HEENT HEENT: Moist mucous membranes - Neck Neck: Supple, no meningeal sign, No bony TTP - Cardiac Cardiac: RRR, Strong equal pulses - Respiratory Respiratory: No respiratory distress, Clear bilaterally - Abdomen Abdomen: Soft, Non distended, Other (Mild right-sided abdominal tenderness, no peritoneal signs) - Back Back: Other (Right CVA tenderness) - Derm Derm: Warm and dry - Extremities Extremities: No calf tenderness / cord - Neuro Neuro: Alert and oriented X 3 - Psych Psych: Normal mood, Normal affect Results - Vitals Vitals: Vital Signs - 24 hr 10/18/19 10/18/19 10/18/19 12:12 12:17 14:17 Temperature 36.5 C Heart Rate 86 85 89 Respiratory 16 16 16 Rate Blood Pressure 132/112 H 130/98 H 132/85 H O2 Saturation 97 98 97 Oxygen O2 Source [] Room air O2 Source Room air - Labs Labs: Laboratory Tests 10/18/19 10/18/19 10/18/19 12:25 12:40 12:40 WBC 21.3 H RBC 4.49 Hgb 13.4 Hct 41.5 MCV 92.4 MCH 29.8 MCHC 32.3 RDW 13.2 Plt Count 267 MPV 9.2 Neut # (Auto) 18.4 H Lymph # (Auto) 1.1 L [place] # (Auto) 1.1 H Eos # (Auto) 0.3 Baso # (Auto) 0.1 Absolute Nucleated RBC 0.00 Nucleated RBC % 0.0 Manual Slide Review Indicated Platelet Estimate NORMAL (130-450,000) Platelet Morphology NORMAL APPEARANCE RBC Morph Micro Appear NORMAL APPEARANCE Sodium 140 Potassium 4.5 Chloride 101 Carbon Dioxide 26 Anion Gap 13.0 BUN 33 H Creatinine 1.4 H Estimated GFR (MDRD) 39 L Glucose 104 H Lactic Acid Calcium 9.2 Total Bilirubin 0.7 AST 34 ALT 29 Alkaline Phosphatase 67 Total Protein 6.8 Albumin 4.0 Globulin 2.8 Albumin/Globulin Ratio 1.4 Lipase 32 Urine Color YELLOW Urine Clarity CLOUDY Urine pH 6.0 Ur Specific [place] 1.020 Urine Protein 100 H Urine Glucose (UA) NEGATIVE Urine Ketones NEGATIVE Urine Occult Blood LARGE H Urine Nitrite NEGATIVE Urine Bilirubin NEGATIVE Urine Urobilinogen 0.2 (NORMAL) Ur Leukocyte Esterase LARGE H Urine RBC 11-25 H Urine WBC >25 H Ur Squamous Epith Cells MOD Squamous H Urine Bacteria Moderate H Ur Microscopic Review INDICATED Urine Culture Comments NOT INDICATED Urine HCG, Qual NEGATIVE 10/18/19 13:44 WBC RBC Hgb Hct MCV MCH MCHC RDW Plt Count MPV Neut # (Auto) Lymph # (Auto) [place] # (Auto) Eos # (Auto) Baso # (Auto) Absolute Nucleated RBC Nucleated RBC % Manual Slide Review Platelet Estimate Platelet Morphology RBC Morph Micro Appear Sodium Potassium Chloride Carbon Dioxide Anion Gap BUN Creatinine Estimated GFR (MDRD) Glucose Lactic Acid 1.5 Calcium Total Bilirubin AST ALT Alkaline Phosphatase Total Protein Albumin Globulin Albumin/Globulin Ratio Lipase Urine Color Urine Clarity Urine pH Ur Specific [place] Urine Protein Urine Glucose (UA) Urine Ketones Urine Occult Blood Urine Nitrite Urine Bilirubin Urine Urobilinogen Ur Leukocyte Esterase Urine RBC Urine WBC Ur Squamous Epith Cells Urine Bacteria Ur Microscopic Review Urine Culture Comments Urine HCG, Qual - Rads (name of study) CT abd/pelvis Radiology: Prelim report reviewed, EMP read contemporaneously, See rad report PD MEDICAL DECISION MAKING - ED course Complexity details: reviewed results, re-evaluated patient, considered differential, d/w patient, d/w family, d/w cognos consultant ED course: Patient with severe right-sided hydronephrosis as well as an active ureteral stone. White count of 20,000. Discussed the case with Dr. Daniel Adams, urology at [facility] who recommends transfer to [facility] and admit to the hospitalist service. Given IV fluids and Rocephin here. Blood cultures were drawn. Lactate is normal. COBRA forms completed. Patient transferred. This document was made in part using voice recognition software. While efforts are made to proofread this document, sound alike and grammatical errors may occur. Severe right kidney hydronephrosis. Moderate perinephric stranding. No fluid collection. No striated nephrogram. There is an obstructing calculus in the distal right ureter measuring 6 mm, () there is an additional calculus in the distal right ureter measuring 2 to 3 mm, (). There is a right hydroureter proximal to these calculi. There is increased conspicuity of the ureteral wall. These calculi have moved distally compared to 07/09/2019. No hydronephrosis on the left. No additional calculi seen. No solid renal mass Severe right kidney hydroureteronephrosis. Obstructing calculi in the distal right ureter measuring approximately 6 mm. Moderate right perinephric stranding. No striated nephrogram. Departure - Departure Disposition: 02 Transfer Acute Care Hosp Clinical Impression: Ureteral stone, CONSTANTIN (acute kidney injury) Hydronephrosis Qualifiers: Hydronephrosis type: unspecified Qualified Code(s): N13.30 - Unspecified hydronephrosis UTI (urinary tract infection) Qualifiers: Urinary tract infection type: acute cystitis Hematuria presence: without hematuria Qualified Code(s): N30.00 - Acute cystitis without hematuria Leukocytosis Qualifiers: Leukocytosis type: unspecified Qualified Code(s): D72.829 - Elevated white blood cell count, unspecified Condition: Stable
[2019-10-18] MEDS ORDERED: cefTRIAXone 1 GM VIAL IVP STA (13:03)
[2019-10-18] MEDS ORDERED: SODIUM CHLORIDE 0.9% 1,000 ML IV STA ×2 (13:03→13:40)
[2019-10-18 13:04] LABS: ALBUMIN/GLOBULIN RATIO 1.4 (1.0-2.2); BILIRUBIN,TOTAL 0.7 mg/dL (0.2-1.0); CALCIUM 9.2 mg/dL (8.5-10.3); CREATININE 1.4 mg/dL (0.4-1.0); TOTAL PROTEIN 6.8 g/dL (6.7-8.2)
[2019-10-18 13:05] LABS: SQUAMOUS EPITHELIAL CELL,UR MOD Squamous (<= Few)
[2019-10-18 13:06] LABS: BACTERIA,URINE Moderate /HPF (None Seen)
[2019-10-18] MEDS ORDERED: HYDROmorphone 1 MG/ML CARPUJECT IVP STA ×4 (13:06→16:49)
[2019-10-18] MEDS ORDERED: LIDOCAINE-MPF 2% 10 ML in SODIUM CHLORIDE 0.9% 50 ML IV STA (13:06)
[2019-10-18] MEDS ORDERED: ONDANSETRON 4 MG/2 ML VIAL IVP STA (13:06)
[2019-10-18] MEDS ORDERED: IOVERSOL 320 100 ML VIAL IVP ONE ×2 (13:25→14:46)
[2019-10-18 13:28] LABS: PLATELET ESTIMATE, MANUAL NORMAL (130-450,000) (NORMAL); PLATELET MORPHOLOGY NORMAL APPEARANCE (NORMAL); RBC MORPHOLOGY (MULTIPLE) NORMAL APPEARANCE (NORMAL)
--- NOTE | 2019-10-18 15:07 | CT Report ---
PROCEDURE: Abdomen/Pelvis W INDICATIONS: R flank pain, possible pyelonephritis? CONTRAST: IV CONTRAST: Optiray 320 ml: 100 PO CONTRAST: *NO PO CONTRAST TECHNIQUE: After the administration of oral and intravenous contrast, 5 mm thick sections acquired from the diap hragms to the symphysis. 5 mm thick coronal and sagittal reformats were acquired. For radiation dos e reduction, the following was used: automated exposure control, adjustment of mA and/or kV accordin g to patient size. COMPARISON: CT abdomen and pelvis 07/09/2019, 05/12/2019, 05/13/2018. FINDINGS: Image quality: Fair. Artifact related to the patient's body habitus with the pelvis touching the size of the gantry. ABDOMEN: Lung bases: Minimal atelectasis. No pleural effusion. Heart size is normal. Solid organs: Liver and spleen are normal in size and enhancement. Gallbladder is unremarkable Addy iary system is non dilated. Pancreas enhances normally. No adrenal nodules. Severe right kidney hydronephrosis. Moderate perinephric stranding. No fluid collection. No striated nephrogram. There is an obstructing calculus in the distal right ureter measuring 6 mm, (6/49) there is an additional calculus in the distal right ureter measuring 2 to 3 mm, (6/48). There is a right hy droureter proximal to these calculi. There is increased conspicuity of the ureteral wall. These calcu li have moved distally compared to 07/09/2019. No hydronephrosis on the left. No additional calculi se en. No solid renal mass. Peritoneum and bowel: Bowel loops demonstrate normal wall thickness and caliber. Appendix is normal . No free fluid or air. Nodes and vessels: No retroperitoneal or mesenteric adenopathy by size criteria. Aorta and inferior vena cava are normal in size. Miscellaneous: No ventral hernias. PELVIS: Genitourinary: Bladder is decompressed. No bladder calculus is identified. Uterus is atrophic or abs ent. Miscellaneous: No inguinal hernias or adenopathy. Bones: No suspicious bony lesions. No vertebral body compression fractures. Moderate degenerative c hange at L4-L5. IMPRESSION: Severe right kidney hydroureteronephrosis. Obstructing calculi in the distal right ureter measuring a pproximately 6 mm. Moderate right perinephric stranding. No striated nephrogram. Results were discussed with Kerwin Saucedo at time of dictation. Report of prior treatment for UTI. Reviewed by: Harry Barillas MD on 10/18/2019 3:05 PM PDT Approved by: Harry Barillas MD on 10/18/2019 3:05 PM PDT Station ID: [id number]
--- NOTE | 2019-10-18 16:26 | ED Physician Documentation ---
ED Addendum - Addendum Addendum: 10/18/19 16:26 Signed out to me by Dr. Watson at shift change. Briefly this is a 59-year-old woman with recurrent renal colic now with an infected kidney stone, 6 mm stone in the distal right ureter with evidence of pyelonephritis but not septic appearing. We were waiting for the hospitalist to call back and at this time she was accepted by Dr. Juma Dempsey to the hospitalist service at [facility] and cobras were completed. She is stable for transport.
[2019-10-18 17:08] VITALS: BP 139/75
== END 2019-10-18 17:36 | disposition short-term general hospital (02) ==
LOC: ED 12:01
DX: N13.6 Pyonephrosis (principal); N30.00 Acute cystitis without hematuria; N17.9 Acute kidney failure, unspecified; I10 Essential (primary) hypertension; E66.01 Morbid (severe) obesity due to excess calories; Z68.43 Body mass index [BMI] 50.0-59.9, adult; Z79.82 Long term (current) use of aspirin
CPT/HCPCS: 36415; 74177; 80053; 81001; 81025; 83605; 83690; 85025; 87040; 87086; 87181; 96365; 96375; 99285; J1170; J7040; Q9967; 81003

== ENCOUNTER 2019-10-18 17:36 | Outpatient (CLI) | payer MEDICARE, MEDICAID | END 2019-10-18 17:37 | disposition short-term general hospital (02) | LOC: EMS 17:36 | PROVIDERS: ATTEND Surgery | DX: N20.1 Calculus of ureter (principal) | CPT/HCPCS: A0425; A0427 ==

== ENCOUNTER 2019-10-23 14:07 | Outpatient (CLI) | payer MEDICARE, MEDICAID ==
[2019-10-23 18:48] LABS: BASOPHILS % (AUTO) 0.3 %; HGB - HEMOGLOBIN 14.3 g/dL (12.0-16.0); LYMPHOCYTES % (AUTO) 20.9 %; MEAN CORPUSCULAR HEMOGLOBIN 28.7 pg (27.0-31.0); MEAN CORPUSCULAR VOLUME 92.6 fL (81.0-99.0); MEAN PLATELET VOLUME 9.8 fL (7.9-10.8); MONOCYTES % (AUTO) 7.4 %; NEUTROPHILS % (AUTO) 63.6 %; PLT - PLATELET COUNT 465 10^3/uL (130-450); RED BLOOD COUNT 4.99 10^6/uL (4.20-5.40); RED CELL DISTRIBUTION WIDTH 13.6 % (12.0-15.0); WHITE BLOOD COUNT 15.9 x10^3/uL (4.8-10.8)
[2019-10-23 19:07] LABS: ABNORMAL LYMPHS % (MANUAL) 0 %
[2019-10-23 19:22] LABS: ALBUMIN 3.7 g/dL (3.2-5.5); ALBUMIN/GLOBULIN RATIO 1.1 (1.0-2.2); BILIRUBIN,TOTAL 0.8 mg/dL (0.2-1.0); CALCIUM 9.4 mg/dL (8.5-10.3); CREATININE 1.3 mg/dL (0.4-1.0)
[2019-10-23 19:39] LABS: BAND NEUTROPHILS % (MANUAL) 2 %; DIFFERENTIAL COMMENT MANUAL DIFFERENTIAL; LYMPHOCYTES # (MANUAL) 3.7 10^3/uL (1.5-3.5); LYMPHOCYTES % (MANUAL) 23 %; MONOCYTES # (MANUAL) 1.3 10^3/uL (0.0-1.0); PLATELET ESTIMATE, MANUAL INCREASED (>450,000) (NORMAL); PLATELET MORPHOLOGY NORMAL APPEARANCE (NORMAL); RBC MORPHOLOGY (MULTIPLE) NORMAL APPEARANCE (NORMAL)
== END 2019-10-23 23:59 | disposition home or self-care (01) ==
LOC: LAB.WCP 14:07
PROVIDERS: ATTEND Family Medicine
DX: N13.39 Other hydronephrosis (principal)
CPT/HCPCS: 36415; 80053; 85025

== ENCOUNTER 2019-11-04 18:09 | Outpatient (CLI) | payer MEDICARE, MEDICAID | END 2019-11-04 18:10 | disposition home or self-care (01) | LOC: COV 18:09 | PROVIDERS: ATTEND Family Medicine | DX: Z01.812 Encounter for preprocedural laboratory examination (principal); Z20.828 Contact with and (suspected) exposure to other viral communicable diseases ==

== ENCOUNTER 2019-12-24 14:25 | Outpatient (CLI) | payer MEDICARE, MEDICAID | END 2019-12-24 14:26 | disposition critical access hospital (66) | LOC: EMS 14:25 | PROVIDERS: ATTEND Surgery | DX: R09.89 Other specified symptoms and signs involving the circulatory and respiratory systems (principal) | CPT/HCPCS: A0425; A0427 ==

== ENCOUNTER 2019-12-24 14:46 | Emergency (ER) | payer MEDICARE, MEDICAID ==
--- NOTE | 2019-12-24 14:50 | ED Physician Documentation ---
PD HPI SKIN - Stated complaint Stated Complaint: BEE STING - History obtained from History obtained from: Patient - History of Present Illness Timing - onset: Today Timing - duration: Minutes (30) Timing - details: Abrupt onset, Still present Location: Neck (she was going to PCP appt and had bee sting to left neck while just outside. Histoyr of anapylactic reaction to bee stings and did not have her epi pen in her purse. Local redness/itching, and also started to have some dyspnea. Got EPIPen and Benadryl at office and EMS called. [facility] enroute.) Review of Systems Constitutional: denies: Fever, Chills Nose: denies: Rhinorrhea / runny nose, Congestion Throat: denies: Sore throat Cardiac: denies: Chest pain / pressure, Palpitations Respiratory: denies: Cough GI: reports: Nausea. denies: Abdominal Pain, Vomiting, Diarrhea Skin: reports: Rash (local redness and swelling at bee sting. No general hives. (though got epipen within few minutes of sting).) Neurologic: reports: Generalized weakness. denies: Focal weakness, Numbness, Near syncope PD PAST MEDICAL HISTORY - Past Medical History Cardiovascular: Congestive heart failure, Hypertension Respiratory: Asthma, Shortness of breath Neuro: Migraines, Seizure disorder Endocrine/Autoimmune: HyPOthyroidism GI: None SUPERVISOR PAPER MACHINE: None : Incontinence, Frequency, Kidney stones HEENT: None Psych: Depression, Anxiety, Bipolar disorder Musculoskeletal: Osteoarthritis, Fibromyalgia, Chronic back pain Derm: None - Past Surgical History Past Surgical History: Yes General: Other Ortho: Arthroscopic surgery /SUPERVISOR PAPER MACHINE: section, Hysterectomy, Oophrectomy, Breast reduction HEENT: Tonsil/Adenoidectomy - Present Medications Home Medications: Ambulatory Orders Medication Instructions Recorded Confirmed Albuterol Sulfate [Proventil Hfa] 6.7 gm IH 05/12/19 Amlodipine Besylate [Norvasc] 10 mg PO 05/12/19 Aspirin 81 mg PO 05/12/19 Butalbital/Aspirin/Caffeine 1 each PO 05/12/19 [Fiorinal 50-325-40 mg Capsule] Celecoxib [CeleBREX] 300 mg PO BID 05/12/19 05/12/19 Duloxetine HCl [Cymbalta] 60 mg PO 05/12/19 05/12/19 Escitalopram Oxalate [Lexapro] 20 mg PO 05/12/19 Estrogens, Conjugated [Premarin] 1.25 mg PO 05/12/19 Levothyroxine [Synthroid] 300 mcg ORAL DAILY 05/12/19 05/12/19 Lisinopril [Zestril] 10 mg PO 05/12/19 Multivitamin [Daily Multiple 1 each PO 05/12/19 Vitamin] Norflex 05/12/19 Stadol Ns 1 spray NS 05/12/19 Tamsulosin HCl [Flomax] 0.4 mg PO 05/12/19 Tumeric 05/12/19 diphenhydrAMINE [Benadryl] 25 mg PO DAILY PM 05/12/19 05/12/19 oxyCODONE/ACET 5/325 [Percocet 5 1 each PO Q4-6H PRN 05/12/19 05/12/19 mg/325 mg] - Allergies Allergies/Adverse Reactions: Allergies Allergy/AdvReac Type Severity Reaction Status Date / Time chlorpromazine HCl * Allergy Unknown Verified 12/24/19 15:03 [From Thorazine] droperidol [From Inapsine] Allergy Unknown Verified 12/24/19 15:03 ketorolac tromethamine * Allergy Unknown Verified 12/24/19 15:03 [From Toradol] meperidine HCl * Allergy Unknown Verified 12/24/19 15:03 [From Demerol] metoclopramide HCl * Allergy Unknown Verified 12/24/19 15:03 [From Reglan] morphine Allergy Unknown Verified 12/24/19 15:03 prochlorperazine edisylate * Allergy Unknown Verified 12/24/19 15:03 [From Compazine] prochlorperazine maleate * Allergy Unknown Verified 12/24/19 15:03 [From Compazine] tramadol Allergy Unknown Verified 12/24/19 15:03 [id number] Antimigraine Allergy Unknown Verified 12/24/19 15:03 Agents lorazepam [From Ativan] AdvReac Anxiety Verified 12/24/19 15:03 - Social History Does the pt smoke?: No Smoking Status: Never smoker Does the pt drink ETOH?: No Does the pt have substance abuse?: No - Immunizations Immunizations are current?: Yes Immunizations: TDAP current <10years, Other immun not current - POLST Patient has POLST: No POLST Status: Full Code (Daughter is her DURABLE POWER OF HASSOCK MAKER. She would like to be full code, but if there is significant cognitive deficits as a result of her illnesses, she wants us to let her go.) PD ED PE NORMAL - Vitals Vital signs reviewed: Yes - General General: Alert and oriented X 3, No acute distress (claims some headache), Well developed/nourished - HEENT HEENT: Pharynx benign (no noted angioedema) - Neck Neck: Supple, no meningeal sign, No adenopathy - Cardiac Cardiac: RRR, No murmur - Respiratory Respiratory: Clear bilaterally - Abdomen Abdomen: Soft, Non tender - Derm Derm: Normal color, Warm and dry, Other (left side neck with local redness and swelling, tender c/w bee sting site. ) - Extremities Extremities: No tenderness to palpate, Normal ROM s pain, No edema, No calf tenderness / cord - Neuro Neuro: Alert and oriented X 3, No motor deficit, Normal speech Results - Vitals Vitals: Vital Signs - 24 hr 12/24/19 12/24/19 12/24/19 14:50 15:37 16:03 Temperature 36.6 C Heart Rate 103 H 94 91 Respiratory 19 21 Rate Blood Pressure 147/118 H 191/112 H O2 Saturation 98 96 97 12/24/19 16:36 Temperature 36.6 C Heart Rate 90 Respiratory 20 Rate Blood Pressure 139/84 H O2 Saturation 99 Oxygen O2 Source [Without Activity] Room air O2 Source Room air PD MEDICAL DECISION MAKING - ED course Complexity details: re-evaluated patient (still without general symptoms and has had time for epi to wear off. Seems to be improved reaction. ), considered differential, d/w patient Departure - Departure Disposition: 01 Home, Self Care Clinical Impression: Allergic reaction to bee sting Condition: Stable Record reviewed to determine appropriate education?: Yes Instructions: ED Bite Sting Insect Gen Allergic React Comments: Continue usual medications. Benadryl if needed for some residual itching. Return if worse symptoms again. Discharge Date/Time: 12/24/19 16:38
[2019-12-24] MEDS ORDERED: HYDROmorphone 1 MG/ML CARPUJECT IVP STA ×2 (15:04→16:01)
[2019-12-24] MEDS ORDERED: ONDANSETRON 4 MG/2 ML VIAL IVP STA (15:04)
[2019-12-24] MEDS ORDERED: FAMOTIDINE 20 MG/2 ML SYRINGE IVP STA (15:04)
[2019-12-24 16:37] VITALS: BP 139/84
== END 2019-12-24 16:38 | disposition home or self-care (01) ==
LOC: EDUNIT# → ED 14:46
DX: T63.441A Toxic effect of venom of bees, accidental (unintentional), initial encounter (principal); R51 Headache; I11.0 Hypertensive heart disease with heart failure; I50.9 Heart failure, unspecified; Z79.82 Long term (current) use of aspirin
CPT/HCPCS: 96374; 96375; 99284; J1170

== ENCOUNTER 2020-01-21 19:32 | Outpatient (CLI) | payer MEDICARE, MEDICAID | END 2020-01-21 19:33 | disposition critical access hospital (66) | LOC: EMS 19:32 | PROVIDERS: ATTEND Surgery | DX: M25.552 Pain in left hip (principal) | CPT/HCPCS: A0425; A0427 ==

== ENCOUNTER 2020-01-21 19:58 | Emergency (ER) | payer MEDICARE, MEDICAID ==
[2020-01-21] MEDS ORDERED: HYDROmorphone 1 MG/ML CARPUJECT IM STA ×2 (20:19→21:07)
--- NOTE | 2020-01-21 20:22 | ED Physician Documentation ---
History of Present Illness - Stated complaint Stated Complaint: GLF/HIP PX - Chief complaint Chief Complaint: Ext Problem - History obtained from History obtained from: Patient - History of Present Illness Timing: Prior to arrival - Additonal information Additional information: 59-year-old female presents the emergency department for acute left hip and leg pain. She reports that for many months she has been having left hip pain and her primary doctor has been evaluating this. This evening she was on the toilet and if she was getting up off the toilet it tipped and she fell onto her left hip. She required assistance at home to get up and though she was able to bear some weight could not bear full weight of the hip. No history of similar. Denies possibility of . Has total abdominal hysterectomy. PD PAST MEDICAL HISTORY - Past Medical History Past Medical History: Yes Cardiovascular: Congestive heart failure, Hypertension Respiratory: Asthma, Shortness of breath Neuro: Migraines, Seizure disorder Endocrine/Autoimmune: HyPOthyroidism GI: None FINISH FILER: None : Incontinence, Frequency, Kidney stones HEENT: None Psych: Depression, Anxiety, Bipolar disorder Musculoskeletal: Osteoarthritis, Fibromyalgia, Chronic back pain Derm: None - Past Surgical History Past Surgical History: Yes General: Other Ortho: Arthroscopic surgery /FINISH FILER: section, Hysterectomy, Oophrectomy, Breast reduction HEENT: Tonsil/Adenoidectomy - Present Medications Home Medications: Ambulatory Orders Medication Instructions Recorded Confirmed Albuterol Sulfate [Proventil Hfa] 6.7 gm IH 05/12/19 Amlodipine Besylate [Norvasc] 10 mg PO 05/12/19 Aspirin 81 mg PO 05/12/19 Butalbital/Aspirin/Caffeine 1 each PO 05/12/19 [Fiorinal 50-325-40 mg Capsule] Celecoxib [CeleBREX] 300 mg PO BID 05/12/19 05/12/19 Duloxetine HCl [Cymbalta] 60 mg PO 05/12/19 05/12/19 Escitalopram Oxalate [Lexapro] 20 mg PO 05/12/19 Estrogens, Conjugated [Premarin] 1.25 mg PO 05/12/19 Levothyroxine [Synthroid] 300 mcg ORAL DAILY 05/12/19 05/12/19 Lisinopril [Zestril] 10 mg PO 05/12/19 Multivitamin [Daily Multiple 1 each PO 05/12/19 Vitamin] Norflex 05/12/19 Stadol Ns 1 spray NS 05/12/19 Tamsulosin HCl [Flomax] 0.4 mg PO 05/12/19 Tumeric 05/12/19 diphenhydrAMINE [Benadryl] 25 mg PO DAILY PM 05/12/19 05/12/19 oxyCODONE/ACET 5/325 [Percocet 5 1 each PO Q4-6H PRN 05/12/19 05/12/19 mg/325 mg] - Allergies Allergies/Adverse Reactions: Allergies Allergy/AdvReac Type Severity Reaction Status Date / Time chlorpromazine HCl * Allergy Unknown Verified 12/24/19 15:03 [From Thorazine] droperidol [From Inapsine] Allergy Unknown Verified 12/24/19 15:03 ketorolac tromethamine * Allergy Unknown Verified 12/24/19 15:03 [From Toradol] meperidine HCl * Allergy Unknown Verified 12/24/19 15:03 [From Demerol] metoclopramide HCl * Allergy Unknown Verified 12/24/19 15:03 [From Reglan] morphine Allergy Unknown Verified 12/24/19 15:03 prochlorperazine edisylate * Allergy Unknown Verified 12/24/19 15:03 [From Compazine] prochlorperazine maleate * Allergy Unknown Verified 12/24/19 15:03 [From Compazine] tramadol Allergy Unknown Verified 12/24/19 15:03 [id number] Antimigraine Allergy Unknown Verified 12/24/19 15:03 Agents lorazepam [From Ativan] AdvReac Anxiety Verified 12/24/19 15:03 - Social History Does the pt smoke?: No Smoking Status: Never smoker Does the pt drink ETOH?: No Does the pt have substance abuse?: No - Immunizations Immunizations are current?: Yes Immunizations: TDAP current <10years, Other immun not current - POLST Patient has POLST: No POLST Status: Full Code (Daughter is her DURABLE POWER OF VETERINARY LABORATORY DIAGNOSTICIAN. She would like to be full code, but if there is significant cognitive deficits as a result of her illnesses, she wants us to let her go.) PD ED PE EXPANDED - General General: Alert, In Pain, Other (morbid obesity) - Cardiac Cardiac: Regular Rate, Radial strong equal, Femoral strong equal, Pedal strong equal, Cap refill < 2 sec - Respiratory Respiratory: Clear to ausultation bhargavi. No: Distress, Labored - Extremities Extremities: Left hip (I am limited by body habitus. No leg shortening. Painful range of motion with external rotation. 2+ dp pulse) Results - Vitals Vitals: Vital Signs - 24 hr 01/21/20 20:06 Temperature 37.2 C Heart Rate 92 Respiratory 20 Rate Blood Pressure 122/72 O2 Saturation 96 Oxygen O2 Source [Without Activity] Room air O2 Source Room air - Rads (name of study) CT left leg Radiology: Final report received (No acute fracture or dislocation. Degenerative changes noted in the hip and knee.) PD MEDICAL DECISION MAKING - ED course Complexity details: reviewed results, re-evaluated patient, considered differential, d/w patient ED course: -year-old morbidly obese female presents to the emergency department for evaluation of acute left hip and leg pain. She reports many months of left hip pain but after a fall from the toilet this evening has had difficulty bearing weight. Her body habitus makes exam a very limited. Patient initially could not bear weight on the left hip. A CT scan was completed and did not show any acute fracture dislocation though degenerative changes are noted. Following administration of Dilaudid patient was able to stand and bear weight. She was using a crutch. Discussed findings with the patient. She does have a prescription for Vicodin at home encouraged continued follow-up with her primary care provider Departure - Departure Disposition: 01 Home, Self Care Clinical Impression: Chronic left hip pain Degenerative joint disease of left hip Qualifiers: Osteoarthritis type: primary Qualified Code(s): M16.12 - Unilateral primary osteoarthritis, left hip Condition: Stable Record reviewed to determine appropriate education?: Yes Instructions: ED Contusion Lower Extr Ch Follow-Up: SANDEEP JONES MD [Primary Care Provider] - Comments: The CT scan of your left hip and leg did not show any broken bones. The CT scan does show degenerative joint disease or arthritis. Please continue to follow-up with Dr. Jones. I do recommend alternating heat or ice for your discomfort. If at any point you are unable to bear weight on the left leg, you have fevers, or leg weakness please return to the emergency department
[2020-01-21] MEDS ORDERED: ONDANSETRON ODT 4 MG TABLET TL STA (20:40)
[2020-01-21] MEDS ORDERED: HYDROmorphone 1 MG/ML CARPUJECT IVP STA (21:09)
--- NOTE | 2020-01-21 21:11 | CT Report ---
PROCEDURE: LOWER EXTREMITY WO - LT INDICATIONS: r/o fx TECHNIQUE: Noncontrast 1 mm axial sections acquired of the left femur, with coronal and sagittal reformats. COMPARISON: CT abdomen/pelvis 10/18/2019. FINDINGS: Image quality: Excellent. Bones: No acute fracture or dislocation. Moderate degenerative changes are seen in the left hip with joint space narrowing and marginal osteophyte formation. A small ossification adjacent to the greate r trochanter may be related to an old avulsion injury or chronic tendinopathy. A small ossification i s seen at the medial tibial spine that is likely the sequela of prior trauma. Mild degenerative martinez es are seen in the knee. Soft tissues: There is mild generalized fatty infiltration of the visualized musculature. No focal s oft tissue edema is identified. No acute abnormality is identified in the included portions of the ab domen and pelvis. The articular cartilages, ligaments, and tendons, and anterior structures of the hi p and knee are not well evaluated with CT. IMPRESSION: 1. No acute fracture or dislocation. 2. Moderate degenerative changes in the left hip. Mild degenerative changes in the left knee. Reviewed by: Anderson Fraire MD on 01/21/2020 9:10 PM PDT Approved by: Anderson Fraire MD on 01/21/2020 9:10 PM PDT Station ID: [id number]
[2020-01-21 21:43] VITALS: BP 124/70
== END 2020-01-21 21:42 | disposition home or self-care (01) ==
LOC: EDSEX → EDUNIT# → ED 19:58
DX: M16.12 Unilateral primary osteoarthritis, left hip (principal)
CPT/HCPCS: 73700; 96374; 99281; 99283; J1170; Q0162

== ENCOUNTER 2020-02-28 17:34 | Emergency (ER) | payer MEDICARE, MEDICAID ==
[2020-02-28] MEDS ORDERED: oxyCODONE 5 MG TABLET PO STA (18:18)
--- NOTE | 2020-02-28 18:22 | ED Physician Documentation ---
History of Present Illness - Stated complaint Stated Complaint: FELL OFF STEP - Chief complaint Chief Complaint: General - History obtained from History obtained from: Patient - History of Present Illness Pain level max: 10 Pain level now: 10 - Additonal information Additional information: 59-year-old female presents to the emergency department with left hip pain after a fall yesterday at home. She states that she is out of all of her Percocet at home and does not see her doctor until this week. Worse with walking, better with rest. No head, neck, back pain. Similar injury to the left hip [address] scan at that time. Review of Systems Constitutional: denies: Fever, Chills GI: denies: Vomiting, Diarrhea Skin: denies: Rash Musculoskeletal: denies: Neck pain, Back pain Neurologic: denies: Headache, Head injury PD PAST MEDICAL HISTORY - Past Medical History Cardiovascular: Congestive heart failure, Hypertension Respiratory: Asthma, Shortness of breath Neuro: Migraines, Seizure disorder Endocrine/Autoimmune: HyPOthyroidism GI: None CENTRAL OFFICE FRAME WIRER: None : Incontinence, Frequency, Kidney stones HEENT: None Psych: Depression, Anxiety, Bipolar disorder Musculoskeletal: Osteoarthritis, Fibromyalgia, Chronic back pain Derm: None - Past Surgical History Past Surgical History: Yes General: Other Ortho: Arthroscopic surgery /CENTRAL OFFICE FRAME WIRER: section, Hysterectomy, Oophrectomy, Breast reduction HEENT: Tonsil/Adenoidectomy - Present Medications Home Medications: Ambulatory Orders Medication Instructions Recorded Confirmed Albuterol Sulfate [Proventil Hfa] 6.7 gm IH 05/12/19 Amlodipine Besylate [Norvasc] 10 mg PO 05/12/19 Aspirin 81 mg PO 05/12/19 Butalbital/Aspirin/Caffeine 1 each PO 05/12/19 [Fiorinal 50-325-40 mg Capsule] Celecoxib [CeleBREX] 300 mg PO BID 05/12/19 05/12/19 Duloxetine HCl [Cymbalta] 60 mg PO 05/12/19 05/12/19 Escitalopram Oxalate [Lexapro] 20 mg PO 05/12/19 Estrogens, Conjugated [Premarin] 1.25 mg PO 05/12/19 Levothyroxine [Synthroid] 300 mcg ORAL DAILY 05/12/19 05/12/19 Lisinopril [Zestril] 10 mg PO 05/12/19 Multivitamin [Daily Multiple 1 each PO 05/12/19 Vitamin] Norflex 05/12/19 Stadol Ns 1 spray NS 05/12/19 Tamsulosin HCl [Flomax] 0.4 mg PO 05/12/19 Tumeric 05/12/19 diphenhydrAMINE [Benadryl] 25 mg PO DAILY PM 05/12/19 05/12/19 oxyCODONE/ACET 5/325 [Percocet 5 1 each PO Q4-6H PRN 05/12/19 05/12/19 mg/325 mg] Oxycodone HCl/Acetaminophen 1 - 2 each PO Q6H PRN #10 tablet 02/28/20 [Percocet 5-325 mg Tablet] - Allergies Allergies/Adverse Reactions: Allergies Allergy/AdvReac Type Severity Reaction Status Date / Time chlorpromazine HCl * Allergy Unknown Verified 12/24/19 15:03 [From Thorazine] droperidol [From Inapsine] Allergy Unknown Verified 12/24/19 15:03 ketorolac tromethamine * Allergy Unknown Verified 12/24/19 15:03 [From Toradol] meperidine HCl * Allergy Unknown Verified 12/24/19 15:03 [From Demerol] metoclopramide HCl * Allergy Unknown Verified 12/24/19 15:03 [From Reglan] morphine Allergy Unknown Verified 12/24/19 15:03 prochlorperazine edisylate * Allergy Unknown Verified 12/24/19 15:03 [From Compazine] prochlorperazine maleate * Allergy Unknown Verified 12/24/19 15:03 [From Compazine] tramadol Allergy Unknown Verified 12/24/19 15:03 [id number] Antimigraine Allergy Unknown Verified 12/24/19 15:03 Agents lorazepam [From Ativan] AdvReac Anxiety Verified 12/24/19 15:03 - Social History Does the pt smoke?: No Smoking Status: Never smoker Does the pt drink ETOH?: No Does the pt have substance abuse?: No - Immunizations Immunizations are current?: Yes Immunizations: TDAP current <10years, Other immun not current - POLST Patient has POLST: No POLST Status: Full Code (Daughter is her DURABLE POWER OF SENIOR WEB DEVELOPER. She would like to be full code, but if there is significant cognitive deficits as a result of her illnesses, she wants us to let her go.) PD ED PE NORMAL - Vitals Vital signs reviewed: Yes - General General: Alert and oriented X 3, No acute distress - HEENT HEENT: Moist mucous membranes - Neck Neck: Supple, no meningeal sign - Derm Derm: Warm and dry - Extremities Extremities: Other (Mild tenderness to palpation over the left hip. Pain with internal and external rotation. Pain with active range of motion, less pain with passive. Neurovascular intact.) - Neuro Neuro: Alert and oriented X 3 Results - Vitals Vitals: Vital Signs - 24 hr 02/28/20 02/28/20 17:48 20:00 Temperature 36.3 C L Heart Rate 115 H 85 Respiratory 18 18 Rate Blood Pressure 145/78 H 158/107 H O2 Saturation 99 96 Oxygen O2 Source [Without Activity] Room air O2 Source Room air - Rads (name of study) L hip xray Radiology: Prelim report reviewed, EMP read contemporaneously, See rad report (No acute abnormality) PD MEDICAL DECISION MAKING - ED course Complexity details: reviewed results, re-evaluated patient, considered differential, d/w patient ED course: Patient with what appears to be a left hip strain. No acute findings on x-ray. Pain well controlled. Has a cane that she will use at home. Will prescribe a small amount of pain medication for her. Patient counseled regarding signs and symptoms for which I believe and urgent re-evaluation would be necessary. Patient with good understanding of and agreement to plan and is comfortable going home at this time This document was made in part using voice recognition software. While efforts are made to proofread this document, sound alike and grammatical errors may occur. Departure - Departure Disposition: 01 Home, Self Care Clinical Impression: Hip strain Qualifiers: Encounter type: initial encounter Laterality: left Qualified Code(s): S76.012A - Strain of muscle, fascia and tendon of left hip, initial encounter Condition: Good Instructions: ED Strain Groin Follow-Up: your,doctor in 1 week [Other] Prescriptions: Oxycodone HCl/Acetaminophen [Percocet 5-325 mg Tablet] 1 - 2 each PO Q6H PRN #10 tablet PRN Reason: pain Comments: There are no acute findings on x-ray tonight. Return if you worsen. Continue heat and ice at home. Follow-up with your doctor for further care. Do not drink alcohol or drive while on narcotic pain medicine. Note that many narcotic pain relievers also contain tylenol/acetaminophen. Please ensure that your total dose of acetaminophen from all sources does not exceed 3 grams (3000mg) per day. You may constipated on this medication, take a stool softener such as "Colace" twice a day while you are on it. Also recommend a [id number] laxative such as senna or MiraLAX any day that you do not have a bowel movement. If you received narcotic pain medication in the emergency department, do not drive or operate machinery for the next 24 hours. Discharge Date/Time: 02/28/20 20:11
--- NOTE | 2020-02-28 19:28 | XRAY Report ---
PROCEDURE: Hip w/Pelvis 2-3V LT INDICATIONS: fall, L hip pain x 24 hours TECHNIQUE: AP pelvis with lateral view(s) of the bilateral hip(s). COMPARISON: None. FINDINGS: Bones: No fractures or dislocations. Mild to moderate bilateral degenerative changes in the hip join ts. Pelvic ring appears intact. No suspicious bony lesions. Soft tissues: The visualized bowel gas pattern is normal. No suspicious soft tissue calcifications. IMPRESSION: 1. No visible fractures. 2. Mild to moderate bilateral and symmetric degenerative change in both hips. Reviewed by: Zenia Soler MD on 02/28/2020 7:27 PM PST Approved by: Zenia Soler MD on 02/28/2020 7:27 PM PST Station ID: [id number]
[2020-02-28 20:00] VITALS: BP 158/107
[2020-02-28] MEDS ORDERED: HYDROmorphone 2 MG TABLET PO STA (20:02)
== END 2020-02-28 20:11 | disposition home or self-care (01) ==
LOC: ED 17:34
DX: S76.012A Strain of muscle, fascia and tendon of left hip, initial encounter (principal); W10.9XXA Fall (on) (from) unspecified stairs and steps, initial encounter; Y92.009 Unspecified place in unspecified non-institutional (private) residence as the place of occurrence of the external cause; I50.9 Heart failure, unspecified; I11.0 Hypertensive heart disease with heart failure
CPT/HCPCS: 73502; 99284; A9270

== ENCOUNTER 2020-03-23 10:52 | Emergency (ER) | payer MEDICARE, MEDICAID ==
[2020-03-23] MEDS ORDERED: HYDROmorphone 1 MG/ML CARPUJECT IM STA (12:28)
[2020-03-23] MEDS ORDERED: ONDANSETRON ODT 4 MG TABLET TL STA (12:28)
--- NOTE | 2020-03-23 12:30 | ED Physician Documentation ---
PD HPI LOWER EXT INJURY - Stated complaint Stated Complaint: LET HIP PX - Chief complaint Chief Complaint: Ext Problem - History obtained from History obtained from: Patient - Additional information Additional information: She has been having pain from osteoarthritis of the hip for several months now generally worsening. She cannot see a surgeon because of body habitus issues increasing the risk of an elective surgery procedure. She is working on her weight. She went to the office today, previously was seeing Dr. Neely but today had a saw Dr. Frey. During exam the physician was reportedly manipulating the patient's hip and the patient felt a pop and much more severe pain. She is still able to walk and bear weight. I reviewed prior images, CT from a couple months ago and x-ray from last month showing moderate degenerative changes of both hips. Review of Systems Constitutional: denies: Fever, Chills GI: denies: Abdominal Pain, Nausea, Vomiting : denies: Dysuria, Frequency PD PAST MEDICAL HISTORY - Past Medical History Cardiovascular: Congestive heart failure, Hypertension Respiratory: Asthma, Shortness of breath Neuro: Migraines, Seizure disorder Endocrine/Autoimmune: HyPOthyroidism GI: None QUALITY CONTROL PROJECTIONIST: None : Incontinence, Frequency, Kidney stones HEENT: None Psych: Depression, Anxiety, Bipolar disorder Musculoskeletal: Osteoarthritis, Fibromyalgia, Chronic back pain Derm: None - Past Surgical History Past Surgical History: Yes General: Other Ortho: Arthroscopic surgery /QUALITY CONTROL PROJECTIONIST: section, Hysterectomy, Oophrectomy, Breast reduction HEENT: Tonsil/Adenoidectomy - Present Medications Home Medications: Ambulatory Orders Medication Instructions Recorded Confirmed Albuterol Sulfate [Proventil Hfa] 6.7 gm IH 05/12/19 Amlodipine Besylate [Norvasc] 10 mg PO 05/12/19 Aspirin 81 mg PO 05/12/19 Butalbital/Aspirin/Caffeine 1 each PO 05/12/19 [Fiorinal 50-325-40 mg Capsule] Celecoxib [CeleBREX] 300 mg PO BID 05/12/19 05/12/19 Duloxetine HCl [Cymbalta] 60 mg PO 05/12/19 05/12/19 Escitalopram Oxalate [Lexapro] 20 mg PO 05/12/19 Estrogens, Conjugated [Premarin] 1.25 mg PO 05/12/19 Levothyroxine [Synthroid] 300 mcg ORAL DAILY 05/12/19 05/12/19 Lisinopril [Zestril] 10 mg PO 05/12/19 Multivitamin [Daily Multiple 1 each PO 05/12/19 Vitamin] Norflex 05/12/19 Stadol Ns 1 spray NS 05/12/19 Tamsulosin HCl [Flomax] 0.4 mg PO 05/12/19 Tumeric 05/12/19 diphenhydrAMINE [Benadryl] 25 mg PO DAILY PM 05/12/19 05/12/19 oxyCODONE/ACET 5/325 [Percocet 5 1 each PO Q4-6H PRN 05/12/19 05/12/19 mg/325 mg] Oxycodone HCl/Acetaminophen 1 - 2 each PO Q6H PRN #10 tablet 02/28/20 [Percocet 5-325 mg Tablet] Oxycodone HCl/Acetaminophen 1 - 2 each PO Q6H PRN #14 tablet 03/23/20 [Percocet 5-325 mg Tablet] - Allergies Allergies/Adverse Reactions: Allergies Allergy/AdvReac Type Severity Reaction Status Date / Time chlorpromazine HCl * Allergy Unknown Verified 03/23/20 11:09 [From Thorazine] droperidol [From Inapsine] Allergy Unknown Verified 03/23/20 11:09 ketorolac tromethamine * Allergy Unknown Verified 03/23/20 11:09 [From Toradol] meperidine HCl * Allergy Unknown Verified 03/23/20 11:09 [From Demerol] metoclopramide HCl * Allergy Unknown Verified 03/23/20 11:09 [From Reglan] morphine Allergy Unknown Verified 03/23/20 11:09 prochlorperazine edisylate * Allergy Unknown Verified 03/23/20 11:09 [From Compazine] prochlorperazine maleate * Allergy Unknown Verified 03/23/20 11:09 [From Compazine] tramadol Allergy Unknown Verified 03/23/20 11:09 [id number] Antimigraine Allergy Unknown Verified 03/23/20 11:09 Agents lorazepam [From Ativan] AdvReac Anxiety Verified 03/23/20 11:09 - Social History Does the pt smoke?: No Smoking Status: Never smoker Does the pt drink ETOH?: No Does the pt have substance abuse?: No - Immunizations Immunizations are current?: Yes Immunizations: TDAP current <10years, Other immun not current - POLST Patient has POLST: No POLST Status: Full Code (Daughter is her DURABLE POWER OF STONECUTTER ASSISTANT. She would like to be full code, but if there is significant cognitive deficits as a result of her illnesses, she wants us to let her go.) PD ED PE NORMAL - Vitals Vital signs reviewed: Yes - General General: Alert and oriented X 3, No acute distress - Extremities Extremities: Other (mod pain with int/ext rotation) - Neuro Neuro: Alert and oriented X 3, Normal speech Results - Vitals Vitals: Vital Signs - 24 hr 03/23/20 11:05 Temperature 36.3 C L Heart Rate 79 Respiratory 20 Rate Blood Pressure 122/95 H O2 Saturation 98 Oxygen O2 Source [Without Activity] Room air O2 Source Room air Departure - Departure Disposition: 01 Home, Self Care Clinical Impression: Degenerative joint disease of left hip Qualifiers: Osteoarthritis type: primary Qualified Code(s): M16.12 - Unilateral primary osteoarthritis, left hip Condition: Stable Record reviewed to determine appropriate education?: Yes Instructions: Hip Osteoarthritis, Hip Osteoarthritis Exercise Prescriptions: Oxycodone HCl/Acetaminophen [Percocet 5-325 mg Tablet] 1 - 2 each PO Q6H PRN #14 tablet PRN Reason: pain Comments: The policy of this emergency department is to not give more than 3 prescriptions for narcotics or other controlled substances in any 1 year. You have already surpassed this benchmark and we cannot prescribe narcotics for you. I encourage you to follow up with your primary care physician or to establish care with a primary care physician for ongoing pain management. You are always welcome to seek emergency care here for this or new issues but there will likely be limitations in the prescription of narcotic pain medication.
[2020-03-23 12:55] VITALS: BP 120/88
== END 2020-03-23 12:53 | disposition home or self-care (01) ==
LOC: ED 10:52
DX: M16.12 Unilateral primary osteoarthritis, left hip (principal); E66.9 Obesity, unspecified; I11.0 Hypertensive heart disease with heart failure; I50.9 Heart failure, unspecified
CPT/HCPCS: 96372; 99283; J1170; Q0162

== ENCOUNTER 2020-06-13 19:01 | Emergency (ER) | payer MEDICARE, MEDICAID ==
[2020-06-13] MEDS ORDERED: HYDROmorphone 1 MG/ML CARPUJECT IM STA (19:34)
--- NOTE | 2020-06-13 19:36 | ED Physician Documentation ---
History of Present Illness - Stated complaint Stated Complaint: LFT HIP PX - Chief complaint Chief Complaint: Ext Problem - History obtained from History obtained from: Patient - History of Present Illness Timing: Chronic Pain level max: 10 Pain level now: 10 - Additonal information Additional information: Patient is a 59-year-old female who presents to the emergency department left hip pain. This is chronic and ongoing. She states that her hip "popped" several times today and has had increasing pain. States her new pain management doctor on Monday. Worse with walking, better with rest. Review of Systems Constitutional: denies: Fever, Chills GI: denies: Vomiting, Diarrhea Skin: denies: Rash Musculoskeletal: reports: Back pain (chronic, unchanged). denies: Neck pain Neurologic: denies: Head injury PD PAST MEDICAL HISTORY - Past Medical History Cardiovascular: Congestive heart failure, Hypertension Respiratory: Asthma, Shortness of breath Neuro: Migraines, Seizure disorder Endocrine/Autoimmune: HyPOthyroidism GI: None SALES OPERATIONS COORDINATOR: None : Incontinence, Frequency, Kidney stones HEENT: None Psych: Depression, Anxiety, Bipolar disorder Musculoskeletal: Osteoarthritis, Fibromyalgia, Chronic back pain Derm: None - Past Surgical History Past Surgical History: Yes General: Other Ortho: Arthroscopic surgery /SALES OPERATIONS COORDINATOR: section, Hysterectomy, Oophrectomy, Breast reduction HEENT: Tonsil/Adenoidectomy - Present Medications Home Medications: Ambulatory Orders Medication Instructions Recorded Confirmed Albuterol Sulfate [Proventil Hfa] 6.7 gm IH 05/12/19 Amlodipine Besylate [Norvasc] 10 mg PO 05/12/19 Aspirin 81 mg PO 05/12/19 Butalbital/Aspirin/Caffeine 1 each PO 05/12/19 [Fiorinal 50-325-40 mg Capsule] Celecoxib [CeleBREX] 300 mg PO BID 05/12/19 05/12/19 Duloxetine HCl [Cymbalta] 60 mg PO 05/12/19 05/12/19 Escitalopram Oxalate [Lexapro] 20 mg PO 05/12/19 Estrogens, Conjugated [Premarin] 1.25 mg PO 05/12/19 Levothyroxine [Synthroid] 300 mcg ORAL DAILY 05/12/19 05/12/19 Lisinopril [Zestril] 10 mg PO 05/12/19 Multivitamin [Daily Multiple 1 each PO 05/12/19 Vitamin] Norflex 05/12/19 Stadol Ns 1 spray NS 05/12/19 Tamsulosin HCl [Flomax] 0.4 mg PO 05/12/19 Tumeric 05/12/19 diphenhydrAMINE [Benadryl] 25 mg PO DAILY PM 05/12/19 05/12/19 oxyCODONE/ACET 5/325 [Percocet 5 1 each PO Q4-6H PRN 05/12/19 05/12/19 mg/325 mg] Oxycodone HCl/Acetaminophen 1 - 2 each PO Q6H PRN #10 tablet 02/28/20 [Percocet 5-325 mg Tablet] Oxycodone HCl/Acetaminophen 1 - 2 each PO Q6H PRN #14 tablet 03/23/20 [Percocet 5-325 mg Tablet] - Allergies Allergies/Adverse Reactions: Allergies Allergy/AdvReac Type Severity Reaction Status Date / Time chlorpromazine HCl * Allergy Unknown Verified 06/13/20 19:07 [From Thorazine] droperidol [From Inapsine] Allergy Unknown Verified 06/13/20 19:07 ketorolac tromethamine * Allergy Unknown Verified 06/13/20 19:07 [From Toradol] meperidine HCl * Allergy Unknown Verified 06/13/20 19:07 [From Demerol] metoclopramide HCl * Allergy Unknown Verified 06/13/20 19:07 [From Reglan] morphine Allergy Unknown Verified 06/13/20 19:07 prochlorperazine edisylate * Allergy Unknown Verified 06/13/20 19:07 [From Compazine] prochlorperazine maleate * Allergy Unknown Verified 06/13/20 19:07 [From Compazine] tramadol Allergy Unknown Verified 06/13/20 19:07 [id number] Antimigraine Allergy Unknown Verified 06/13/20 19:07 Agents lorazepam [From Ativan] AdvReac Anxiety Verified 06/13/20 19:07 - Social History Does the pt smoke?: No Smoking Status: Never smoker Does the pt drink ETOH?: No Does the pt have substance abuse?: No - Immunizations Immunizations are current?: Yes Immunizations: TDAP current <10years, Other immun not current - POLST Patient has POLST: No POLST Status: Full Code (Daughter is her DURABLE POWER OF ORTHOPEDIC TECH. She would like to be full code, but if there is significant cognitive deficits as a result of her illnesses, she wants us to let her go.) PD ED PE NORMAL - Vitals Vital signs reviewed: Yes - General General: Alert and oriented X 3, No acute distress - HEENT HEENT: Moist mucous membranes - Neck Neck: Supple, no meningeal sign - Derm Derm: Warm and dry - Extremities Extremities: No deformity, Other (L hip - Limited range of motion secondary to pain, pain with internal and external rotation, abduction and abduction. Flexion and extension. Neurovascular intact) - Neuro Neuro: Alert and oriented X 3 Results - Vitals Vitals: Vital Signs - 24 hr 06/13/20 19:04 Temperature 36.3 C L Heart Rate 94 Respiratory 18 Rate Blood Pressure 151/104 H O2 Saturation 97 Oxygen O2 Source [Without Activity] Room air O2 Source Room air PD MEDICAL DECISION MAKING - ED course Complexity details: reviewed old records, considered differential, d/w patient ED course: Patient given a single dose of pain medication here for her pain. Pain improved. She does not want any pain medication for home. She states she will follow up with her pain with general doctor on Monday as scheduled. Patient counseled regarding signs and symptoms for which I believe and urgent re- evaluation would be necessary. Patient with good understanding of and agreement to plan and is comfortable going home at this time This document was made in part using voice recognition software. While efforts are made to proofread this document, sound alike and grammatical errors may occur. Departure - Departure Disposition: Home, Self Care Clinical Impression: Degenerative joint disease of left hip Qualifiers: Osteoarthritis type: unspecified Qualified Code(s): M16.12 - Unilateral primary osteoarthritis, left hip Chronic pain Qualifiers: Chronic pain type: other chronic pain Qualified Code(s): G89.29 - Other chronic pain Condition: Good Instructions: ED Chronic Pain Management Follow-Up: Samy Blankenship MD [Primary Care Provider] - Comments: Follow-up with your pain management doctor as scheduled on Monday. Return if you worsen. Do not drive or operate heavy machinery for at least 6 hours after receiving the medication tonight.
[2020-06-13 19:48] VITALS: BP 149/99
== END 2020-06-13 19:47 | disposition home or self-care (01) ==
LOC: ED 19:01
DX: M16.12 Unilateral primary osteoarthritis, left hip (principal); G89.29 Other chronic pain; I10 Essential (primary) hypertension
CPT/HCPCS: 96372; 99283; 99284; J1170

== ENCOUNTER 2020-07-01 18:07 | Emergency (ER) | payer MEDICARE, MEDICAID ==
[2020-07-01 18:17] VITALS: BP 150/92
--- NOTE | 2020-07-01 19:21 | ED Physician Documentation ---
PD HPI Fall - Stated complaint Stated Complaint: BACK & HIP PX - Chief complaint Chief Complaint: Trauma Ch/Bk - History obtained from History obtained from: Patient - History of Present Illness Mechanism of injury: Tripped Fall distance: Standing position Where injury occurred: A house / apartment Timing - onset: Yesterday Injury(ies) location: Back, Left Lower Extremity Pain level now: 8 Quality of pain: Pain Associated symptoms: No: LOC, Neck pain, Weakness, Paresthesias Recently seen: Emergency Dept (Last month for left hip pain) - Additional information Additional information: patient tripped over a friend's dog that she was taking care of yesterday; she did not fall to ground but stumbled and had sudden onset left hip and low back pain associated with a popping sound/sensation of left hip. This pain has steadily worsened and she presents requesting an injection of pain mediation with zofran to prevent nausea. She has has several previous similar visits and she says she has chronic hip and low back problems that make her prone to these flare-ups of chronic pain. She specifically says shes does not want any rx for home. Review of Systems : denies: Unable to Void, Incontinent Musculoskeletal: reports: Back pain, Joint pain (left hip), Pain with weight bearing. denies: Joint swelling Neurologic: denies: Focal weakness, Numbness PD PAST MEDICAL HISTORY - Past Medical History Cardiovascular: Congestive heart failure, Hypertension Respiratory: Asthma, Shortness of breath Neuro: Migraines, Seizure disorder Endocrine/Autoimmune: HyPOthyroidism GI: None DRYWALL CARRIER: None : Incontinence, Frequency, Kidney stones HEENT: None Psych: Depression, Anxiety, Bipolar disorder Musculoskeletal: Osteoarthritis, Fibromyalgia, Chronic back pain Derm: None - Past Surgical History Past Surgical History: Yes General: Other Ortho: Arthroscopic surgery /DRYWALL CARRIER: section, Hysterectomy, Oophrectomy, Breast reduction HEENT: Tonsil/Adenoidectomy - Present Medications Home Medications: Ambulatory Orders Medication Instructions Recorded Confirmed Albuterol Sulfate [Proventil Hfa] 6.7 gm IH 05/12/19 Amlodipine Besylate [Norvasc] 10 mg PO 05/12/19 Aspirin 81 mg PO 05/12/19 Butalbital/Aspirin/Caffeine 1 each PO 05/12/19 [Fiorinal 50-325-40 mg Capsule] Celecoxib [CeleBREX] 300 mg PO BID 05/12/19 05/12/19 Duloxetine HCl [Cymbalta] 60 mg PO 05/12/19 05/12/19 Escitalopram Oxalate [Lexapro] 20 mg PO 05/12/19 Estrogens, Conjugated [Premarin] 1.25 mg PO 05/12/19 Levothyroxine [Synthroid] 300 mcg ORAL DAILY 05/12/19 05/12/19 Lisinopril [Zestril] 10 mg PO 05/12/19 Multivitamin [Daily Multiple 1 each PO 05/12/19 Vitamin] Norflex 05/12/19 Stadol Ns 1 spray NS 05/12/19 Tamsulosin HCl [Flomax] 0.4 mg PO 05/12/19 Tumeric 05/12/19 diphenhydrAMINE [Benadryl] 25 mg PO DAILY PM 05/12/19 05/12/19 oxyCODONE/ACET 5/325 [Percocet 5 1 each PO Q4-6H PRN 05/12/19 05/12/19 mg/325 mg] Oxycodone HCl/Acetaminophen 1 - 2 each PO Q6H PRN #10 tablet 02/28/20 [Percocet 5-325 mg Tablet] Oxycodone HCl/Acetaminophen 1 - 2 each PO Q6H PRN #14 tablet 03/23/20 [Percocet 5-325 mg Tablet] - Allergies Allergies/Adverse Reactions: Allergies Allergy/AdvReac Type Severity Reaction Status Date / Time chlorpromazine HCl * Allergy Unknown Verified 07/01/20 18:12 [From Thorazine] droperidol [From Inapsine] Allergy Unknown Verified 07/01/20 18:12 ketorolac tromethamine * Allergy Unknown Verified 07/01/20 18:12 [From Toradol] meperidine HCl * Allergy Unknown Verified 07/01/20 18:12 [From Demerol] metoclopramide HCl * Allergy Unknown Verified 07/01/20 18:12 [From Reglan] morphine Allergy Unknown Verified 07/01/20 18:12 prochlorperazine edisylate * Allergy Unknown Verified 07/01/20 18:12 [From Compazine] prochlorperazine maleate * Allergy Unknown Verified 07/01/20 18:12 [From Compazine] tramadol Allergy Unknown Verified 07/01/20 18:12 [id number] Antimigraine Allergy Unknown Verified 07/01/20 18:12 Agents lorazepam [From Ativan] AdvReac Anxiety Verified 07/01/20 18:12 - Social History Does the pt smoke?: No Smoking Status: Never smoker Does the pt drink ETOH?: No Does the pt have substance abuse?: No - Immunizations Immunizations are current?: Yes Immunizations: TDAP current <10years, Other immun not current - POLST Patient has POLST: No POLST Status: Full Code (Daughter is her DURABLE POWER OF CAR PUSHER. She would like to be full code, but if there is significant cognitive deficits as a result of her illnesses, she wants us to let her go.) PD ED PE NORMAL - Vitals Vital signs reviewed: Yes - General General: Alert and oriented X 3, No acute distress, Well developed/nourished - Neuro Neuro: No motor deficit, No sensory deficit PD ED PE EXPANDED - Extremities Extremities: Limited ROM (limited left hip flexion due to worsening pain with this). No: Deformity, Tenderness Results - Vitals Vitals: Vital Signs - 24 hr 07/01/20 18:12 Temperature 36.5 C Heart Rate 99 Respiratory 20 Rate Blood Pressure 150/92 H O2 Saturation 97 Oxygen O2 Source [Without Activity] Room air O2 Source Room air PD MEDICAL DECISION MAKING - ED course Complexity details: considered differential, d/w patient ED course: patient has had similar injury before (in either hip at times) and does not feel anything is broken or dislocated. She requests a shot of pain mediation and PO zofran and then discharge. She says she does not want any rx for pain medication and will follow up with her doctor regarding any chronic/ongoing pain problems as she has been doing Departure - Departure Disposition: 01 Home, Self Care Clinical Impression: Hip sprain Qualifiers: Encounter type: initial encounter Laterality: left Qualified Code(s): S73.102A - Unspecified sprain of left hip, initial encounter Condition: Good Instructions: ED Sprain Hip Follow-Up: Samy Blankenship MD [Primary Care Provider] - Discharge Date/Time: 07/01/20 19:47
[2020-07-01] MEDS ORDERED: HYDROmorphone 2 MG/ML VIAL IM STA (19:33)
[2020-07-01] MEDS ORDERED: ONDANSETRON ODT 4 MG TABLET TL STA (19:34)
== END 2020-07-01 19:47 | disposition home or self-care (01) ==
LOC: ED 18:07
DX: S73.102A Unspecified sprain of left hip, initial encounter (principal); W01.0XXA Fall on same level from slipping, tripping and stumbling without subsequent striking against object, initial encounter; Y93.F9 Activity, other caregiving; Y92.039 Unspecified place in apartment as the place of occurrence of the external cause; I11.0 Hypertensive heart disease with heart failure; I50.9 Heart failure, unspecified
CPT/HCPCS: 96372; 99283; J1170; Q0162

== ENCOUNTER 2020-07-05 19:04 | Emergency (ER) | payer MEDICARE, MEDICAID ==
--- NOTE | 2020-07-05 21:01 | ED Physician Documentation ---
History of Present Illness - Stated complaint Stated Complaint: L HIP PX - Chief complaint Chief Complaint: Ext Problem - History obtained from History obtained from: Patient - History of Present Illness Timing: How many days ago (5-6) Pain level now: 8 Radiates to: left knee Improved by: rest Worsened by: movement (hip flexion), weight-bearing (able to partially weight- bear with cane) - Additonal information Additional information: c/o ongoing left hip pain, which is chronic but was exacerbated when she tripped 4 days ago. At that time, she was T+R from this ED ([facility]) by me and had good relief with IM dilaudid, which she says is typical for when she has exacerbation of this chronic pain. Up until a few months ago, her PMD was prescribing medications for chronic pain but he retired in February and patient has upcoming establishing appointment with a new pain management physician next week. Her current PMD does not prescribe narcotic/opiate pain management medications. She presents due to ongoing left hip pain that is preventing her from sleeping Review of Systems Constitutional: denies: Fever Musculoskeletal: reports: Joint pain, Pain with weight bearing. 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 : Incontinence, Frequency, Kidney stones HEENT: None Psych: Depression, Anxiety, Bipolar disorder Musculoskeletal: Osteoarthritis, Fibromyalgia, Chronic back pain Derm: None - Past Surgical History Past Surgical History: Yes General: Other Ortho: Arthroscopic surgery /POWER NUT RUNNER OPERATOR: section, Hysterectomy, Oophrectomy, Breast reduction HEENT: Tonsil/Adenoidectomy - Present Medications Home Medications: Ambulatory Orders Medication Instructions Recorded Confirmed Albuterol Sulfate [Proventil Hfa] 6.7 gm IH 05/12/19 Amlodipine Besylate [Norvasc] 10 mg PO 05/12/19 Aspirin 81 mg PO 05/12/19 Butalbital/Aspirin/Caffeine 1 each PO 05/12/19 [Fiorinal 50-325-40 mg Capsule] Celecoxib [CeleBREX] 300 mg PO BID 05/12/19 05/12/19 Duloxetine HCl [Cymbalta] 60 mg PO 05/12/19 05/12/19 Escitalopram Oxalate [Lexapro] 20 mg PO 05/12/19 Estrogens, Conjugated [Premarin] 1.25 mg PO 05/12/19 Levothyroxine [Synthroid] 300 mcg ORAL DAILY 05/12/19 05/12/19 Lisinopril [Zestril] 10 mg PO 05/12/19 Multivitamin [Daily Multiple 1 each PO 05/12/19 Vitamin] Norflex 05/12/19 Stadol Ns 1 spray NS 05/12/19 Tamsulosin HCl [Flomax] 0.4 mg PO 05/12/19 Tumeric 05/12/19 diphenhydrAMINE [Benadryl] 25 mg PO DAILY PM 05/12/19 05/12/19 oxyCODONE/ACET 5/325 [Percocet 5 1 each PO Q4-6H PRN 05/12/19 05/12/19 mg/325 mg] Oxycodone HCl/Acetaminophen 1 - 2 each PO Q6H PRN #10 tablet 02/28/20 [Percocet 5-325 mg Tablet] Oxycodone HCl/Acetaminophen 1 - 2 each PO Q6H PRN #14 tablet 03/23/20 [Percocet 5-325 mg Tablet] Oxycodone HCl/Acetaminophen 1 - 2 each PO Q6H PRN #14 tablet 07/05/20 [Percocet 5-325 mg Tablet] - Allergies Allergies/Adverse Reactions: Allergies Allergy/AdvReac Type Severity Reaction Status Date / Time chlorpromazine HCl * Allergy Unknown Verified 07/05/20 19:17 [From Thorazine] droperidol [From Inapsine] Allergy Unknown Verified 07/05/20 19:17 ketorolac tromethamine * Allergy Unknown Verified 07/05/20 19:17 [From Toradol] meperidine HCl * Allergy Unknown Verified 07/05/20 19:17 [From Demerol] metoclopramide HCl * Allergy Unknown Verified 07/05/20 19:17 [From Reglan] morphine Allergy Unknown Verified 07/05/20 19:17 prochlorperazine edisylate * Allergy Unknown Verified 07/05/20 19:17 [From Compazine] prochlorperazine maleate * Allergy Unknown Verified 07/05/20 19:17 [From Compazine] tramadol Allergy Unknown Verified 07/05/20 19:17 [id number] Antimigraine Allergy Unknown Verified 07/05/20 19:17 Agents lorazepam [From Ativan] AdvReac Anxiety Verified 07/05/20 19:17 - Social History Does the pt smoke?: No Smoking Status: Never smoker Does the pt drink ETOH?: No Does the pt have substance abuse?: No - Immunizations Immunizations are current?: Yes Immunizations: TDAP current <10years, Other immun not current - POLST Patient has POLST: No POLST Status: Full Code (Daughter is her DURABLE POWER OF NURSE OUTREACH CASE MANAGER. She would like to be full code, but if there is significant cognitive deficits as a result of her illnesses, she wants us to let her go.) PD ED PE NORMAL - Vitals Vital signs reviewed: Yes - General General: Alert and oriented X 3, No acute distress, Well developed/nourished - Extremities Extremities: No tenderness to palpate, No edema, Other (limited left hip flexion due to pain with this movement) - Neuro Neuro: No motor deficit Results - Vitals Vitals: Vital Signs - 24 hr 07/05/20 19:13 Temperature 36.0 C L Heart Rate 87 Respiratory 18 Rate Blood Pressure 147/92 H O2 Saturation 97 Oxygen O2 Source [Without Activity] Room air O2 Source Room air PD MEDICAL DECISION MAKING - ED course Complexity details: reviewed old records, considered differential, d/w patient ED course: patient c/o ongoing pain since falling nearly one week ago, exacerbation of chronic left hip pain. CT left hip performed in January 2020 showed moderate degenerative changes of the left hip. She is given 2mg IM dilaudid, 8mg PO zofran, and does not ask for any further medications but I offered short course of percocet to help with her chronic pain until she can be seen by the new pain management physician. I note she continues to get butorphinal nasal spray from her previous PMD, but she explains that these are refills. This sounds reasonable and she is not asking for rx or "to go medications" (nor did she last visit); she also says she has an appointment next week with pain management. These factors would suggest she is not "seeking" and thus I was willing (offered) to provide a short course of percocet Departure - Departure Disposition: 01 Home, Self Care Clinical Impression: Hip sprain Qualifiers: Encounter type: initial encounter Laterality: left Qualified Code(s): S73.102A - Unspecified sprain of left hip, initial encounter Condition: Good Instructions: ED Sprain Hip Follow-Up: Samy Blankenship MD [Primary Care Provider] - Prescriptions: Oxycodone HCl/Acetaminophen [Percocet 5-325 mg Tablet] 1 - 2 each PO Q6H PRN #14 tablet PRN Reason: pain Comments: Follow up with pain management next week as scheduled
[2020-07-05] MEDS ORDERED: HYDROmorphone 1 MG/ML CARPUJECT IM STA (21:15)
[2020-07-05] MEDS ORDERED: ONDANSETRON ODT 4 MG TABLET TL STA (21:16)
[2020-07-05 21:29] VITALS: BP 139/75
== END 2020-07-05 21:29 | disposition home or self-care (01) ==
LOC: ED 19:04
DX: S73.102A Unspecified sprain of left hip, initial encounter (principal); W19.XXXA Unspecified fall, initial encounter; I10 Essential (primary) hypertension
CPT/HCPCS: 96372; 99283; J1170; Q0162

== ENCOUNTER 2020-07-23 11:04 | Emergency (ER) | payer MEDICARE, MEDICAID ==
--- OUTSIDE RECORDS SUMMARY | 2020-07-23 11:07 | EXTERNAL MEDICAL SUMMARY RPT | Continuity of Care Document ---
:1960 Demographics Phone Unavailable Preferred Language Unknown Marital Status Unknown Confucianism Affiliation Unknown Race Unknown Ethnic Group Unknown Author Organization [place] Address [address] [phone] Phone Social History date description facility [phone]
--- OUTSIDE RECORDS SUMMARY | 2020-07-23 11:15 | EXTERNAL MEDICAL SUMMARY RPT | Continuity of Care Document ---
:1960 Demographics Phone Unavailable Preferred Language Unknown Marital Status Unknown Mormonism Affiliation Unknown Race Unknown Ethnic Group Unknown Author Organization [place] Address [address] [phone] Phone Social History date description facility [phone]
--- NOTE | 2020-07-23 11:23 | ED Physician Documentation ---
PD HPI HEADACHE - Stated complaint Stated Complaint: HEADACHE - Chief complaint Chief Complaint: General - History obtained from History obtained from: Patient - History of Present Illness Timing - onset: Today Timing - onset during: Light activity (was getting blood tests at [facility] and developed migraine headache there. Did not have her migraine meds with her. She states typically uses Stadol nasal spray with Zofran.) Timing - details: Abrupt onset, Still present Worst headache ever?: No: Worst headache ever? Location: Front, Left Quality: Throbbing, Aching Associated symptoms: Nausea, Vision changes (light sensitive and some blurring vision left eye.). No: Fever, Stiff neck, Vomiting, Weakness Improved by: No: Rest, Dark room Worsened by: Light, Noise Contributing factors: No: Recent illness, Trauma Similar symptoms before: Diagnosis (residential history of migraines. She states does not respond to usual antimigraine meds or is sensitive ("allergic").) Review of Systems Constitutional: denies: Fever, Chills Nose: denies: Rhinorrhea / runny nose, Congestion Throat: denies: Sore throat Respiratory: denies: Cough GI: reports: Nausea. denies: Abdominal Pain, Vomiting Neurologic: reports: Headache. 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 : Incontinence, Frequency, Kidney stones HEENT: None Psych: Depression, Anxiety, Bipolar disorder Musculoskeletal: Osteoarthritis, Fibromyalgia, Chronic back pain Derm: None - Past Surgical History Past Surgical History: Yes General: Other Ortho: Arthroscopic surgery /TRACTOR TRAILER TRUCK DRIVER: section, Hysterectomy, Oophrectomy, Breast reduction HEENT: Tonsil/Adenoidectomy - Present Medications Home Medications: Ambulatory Orders Medication Instructions Recorded Confirmed Albuterol Sulfate [Proventil Hfa] 6.7 gm IH 05/12/19 Amlodipine Besylate [Norvasc] 10 mg PO 05/12/19 Aspirin 81 mg PO 05/12/19 Butalbital/Aspirin/Caffeine 1 each PO 05/12/19 [Fiorinal 50-325-40 mg Capsule] Celecoxib [CeleBREX] 300 mg PO BID 05/12/19 05/12/19 Duloxetine HCl [Cymbalta] 60 mg PO 05/12/19 05/12/19 Escitalopram Oxalate [Lexapro] 20 mg PO 05/12/19 Estrogens, Conjugated [Premarin] 1.25 mg PO 05/12/19 Levothyroxine [Synthroid] 300 mcg ORAL DAILY 05/12/19 05/12/19 Lisinopril [Zestril] 10 mg PO 05/12/19 Multivitamin [Daily Multiple 1 each PO 05/12/19 Vitamin] Norflex 05/12/19 Stadol Ns 1 spray NS 05/12/19 Tamsulosin HCl [Flomax] 0.4 mg PO 05/12/19 Tumeric 05/12/19 diphenhydrAMINE [Benadryl] 25 mg PO DAILY PM 05/12/19 05/12/19 oxyCODONE/ACET 5/325 [Percocet 5 1 each PO Q4-6H PRN 05/12/19 05/12/19 mg/325 mg] Oxycodone HCl/Acetaminophen 1 - 2 each PO Q6H PRN #10 tablet 02/28/20 [Percocet 5-325 mg Tablet] Oxycodone HCl/Acetaminophen 1 - 2 each PO Q6H PRN #14 tablet 03/23/20 [Percocet 5-325 mg Tablet] Oxycodone HCl/Acetaminophen 1 - 2 each PO Q6H PRN #14 tablet 07/05/20 [Percocet 5-325 mg Tablet] - Allergies Allergies/Adverse Reactions: Allergies Allergy/AdvReac Type Severity Reaction Status Date / Time chlorpromazine HCl * Allergy Unknown Verified 07/23/20 11:15 [From Thorazine] droperidol [From Inapsine] Allergy Unknown Verified 07/23/20 11:15 ketorolac tromethamine * Allergy Unknown Verified 07/23/20 11:15 [From Toradol] meperidine HCl * Allergy Unknown Verified 07/23/20 11:15 [From Demerol] metoclopramide HCl * Allergy Unknown Verified 07/23/20 11:15 [From Reglan] morphine Allergy Unknown Verified 07/23/20 11:15 prochlorperazine edisylate * Allergy Unknown Verified 07/23/20 11:15 [From Compazine] prochlorperazine maleate * Allergy Unknown Verified 07/23/20 11:15 [From Compazine] tramadol Allergy Unknown Verified 07/23/20 11:15 [id number] Antimigraine Allergy Unknown Verified 07/23/20 11:15 Agents lorazepam [From Ativan] AdvReac Anxiety Verified 07/23/20 11:15 - Social History Does the pt smoke?: No Smoking Status: Never smoker Does the pt drink ETOH?: No Does the pt have substance abuse?: No - Immunizations Immunizations are current?: Yes Immunizations: TDAP current <10years, Other immun not current - POLST Patient has POLST: No POLST Status: Full Code (Daughter is her DURABLE POWER OF EMERGENCY ROOM RN. She would like to be full code, but if there is significant cognitive deficits as a result of her illnesses, she wants us to let her go.) PD ED PE NORMAL - Vitals Vital signs reviewed: Yes - General General: Alert and oriented X 3, Well developed/nourished, Other (appears uncomfortable with light sensitivity and wearing sunglasses in dark room. ) - HEENT HEENT: PERRL, EOMI (light sensitive) - Neck Neck: Supple, no meningeal sign, No adenopathy - Cardiac Cardiac: RRR, No murmur - Respiratory Respiratory: Clear bilaterally - Derm Derm: Normal color, Warm and dry - Extremities Extremities: No tenderness to palpate - Neuro Neuro: Alert and oriented X 3, No motor deficit, No sensory deficit, Normal speech Results - Vitals Vitals: Vital Signs - 24 hr 07/23/20 07/23/20 11:12 12:45 Temperature 36.3 C L Heart Rate 103 H 90 Respiratory 20 18 Rate Blood Pressure 167/110 H 137/95 H O2 Saturation 99 97 Oxygen O2 Source [Without Activity] Room air O2 Source Room air PD MEDICAL DECISION MAKING - ED course Complexity details: considered differential (seems c/w her usual migraines per patient. She says what typically works in the ER. Looks like difficult IV start on arms, and so opted to just give the IMs she has had in the past. ), d/w patient Departure - Departure Disposition: 01 Home, Self Care Clinical Impression: Migraine headache Qualifiers: Migraine type: unspecified Status migrainosus presence: without status migrainosus Intractability: not intractable Qualified Code(s): G43.909 - Migraine, unspecified, not intractable, without status migrainosus Condition: Stable Record reviewed to determine appropriate education?: Yes Instructions: ED Headache Migraine Follow-Up: Samy Blankenship MD [Primary Care Provider] - Comments: Rest at home today. Stay well hydrated. Usual medications. Discharge Date/Time: 07/23/20 12:40
[2020-07-23] MEDS ORDERED: ONDANSETRON 4 MG/2 ML VIAL IM STA (12:00)
[2020-07-23] MEDS ORDERED: HYDROmorphone 2 MG/ML VIAL IM STA (12:00)
[2020-07-23 12:46] VITALS: BP 137/95
== END 2020-07-23 12:40 | disposition home or self-care (01) ==
LOC: ED 11:04
DX: G43.909 Migraine, unspecified, not intractable, without status migrainosus (principal)
CPT/HCPCS: 96372; 99283; 99284; J1170

== ENCOUNTER 2020-08-12 17:47 | Outpatient (CLI) | payer MEDICARE, MEDICAID | END 2020-08-12 17:48 | disposition critical access hospital (66) | LOC: EMS 17:47 | DX: R51.9 Headache, unspecified (principal) | CPT/HCPCS: A0425; A0429 ==

== ENCOUNTER 2020-08-12 18:15 | Emergency (ER) | payer MEDICARE, MEDICAID ==
--- OUTSIDE RECORDS SUMMARY | 2020-08-12 18:25 | EXTERNAL MEDICAL SUMMARY RPT | Continuity of Care Document ---
:1960 Demographics Phone Unavailable Preferred Language Unknown Marital Status Unknown Gnosticism Affiliation Unknown Race Unknown Ethnic Group Unknown Author Organization [place] Address [address] [phone] Phone Social History date description facility [phone]
--- NOTE | 2020-08-12 18:43 | ED Physician Documentation ---
PD HPI HEADACHE - Stated complaint Stated Complaint: MIGRAINE - Chief complaint Chief Complaint: Neuro - History obtained from History obtained from: Patient, EMS - History of Present Illness Timing - onset: Enter time (14:30), Today Timing - details: Abrupt onset Pain level now: 9 Worst headache ever?: No: Worst headache ever? Location: Right Quality: Throbbing, Aching Associated symptoms: Nausea, Vomiting Improved by: Rest, Dark room, Quiet Worsened by: Light, Noise Similar symptoms before: Diagnosis (migraine) Recently seen: Emergency Dept - Additional information Additional information: KALYANI, c/o migraine headache since 2:30 PM today. she says this is c/w previous migraine headaches. She says she took her fioricet as well as alleve, advil, and zofran; none of these provided relief. Patient tells me she does not have a neurologist Review of Systems Constitutional: denies: Fever, Chills, Sweats Eyes: reports: Photophobia. denies: Loss of vision, Decreased vision GI: reports: Nausea, Vomiting. denies: Abdominal Pain Neurologic: reports: Headache. denies: Focal weakness, Numbness PD PAST MEDICAL HISTORY - Past Medical History Cardiovascular: Congestive heart failure, Hypertension Respiratory: Asthma, Shortness of breath Neuro: Migraines, Seizure disorder Endocrine/Autoimmune: HyPOthyroidism GI: None DIRECTOR TRADE: None : Incontinence, Frequency, Kidney stones HEENT: None Psych: Depression, Anxiety, Bipolar disorder Musculoskeletal: Osteoarthritis, Fibromyalgia, Chronic back pain Derm: None - Past Surgical History Past Surgical History: Yes General: Other Ortho: Arthroscopic surgery /DIRECTOR TRADE: section, Hysterectomy, Oophrectomy, Breast reduction HEENT: Tonsil/Adenoidectomy - Present Medications Home Medications: Ambulatory Orders Medication Instructions Recorded Confirmed Amlodipine Besylate [Norvasc] 10 mg PO DAILY 05/12/19 Aspirin 81 mg PO 05/12/19 Butalbital/Aspirin/Caffeine 1 each PO 05/12/19 [Fiorinal 50-325-40 mg Capsule] Celecoxib [CeleBREX] 400 mg PO BID 05/12/19 05/12/19 Escitalopram Oxalate [Lexapro] 40 mg PO DAILY 05/12/19 Estrogens, Conjugated [Premarin] 1.25 mg PO 05/12/19 Levothyroxine [Synthroid] 300 mcg ORAL DAILY 05/12/19 05/12/19 Multivitamin [Daily Multiple 1 each PO DAILY 05/12/19 Vitamin] Stadol Ns 1 spray NS 05/12/19 Tamsulosin HCl [Flomax] 0.4 mg PO DAILY 05/12/19 diphenhydrAMINE [Benadryl] 25 mg PO DAILY PM 05/12/19 05/12/19 Famotidine [Pepcid AC] 10 mg PO DAILY 08/12/20 08/12/20 Ondansetron HCl [Zofran] 4 mg PO ONCE 08/12/20 08/12/20 busPIRone [Buspar] 10 mg PO DAILY 08/12/20 08/12/20 tiZANidine [Zanaflex] 12 mg PO DAILY 08/12/20 08/12/20 - Allergies Allergies/Adverse Reactions: Allergies Allergy/AdvReac Type Severity Reaction Status Date / Time chlorpromazine HCl * Allergy Unknown Verified 08/12/20 18:23 [From Thorazine] droperidol [From Inapsine] Allergy Unknown Verified 08/12/20 18:23 ketorolac tromethamine * Allergy Unknown Verified 08/12/20 18:23 [From Toradol] meperidine HCl * Allergy Unknown Verified 08/12/20 18:23 [From Demerol] metoclopramide HCl * Allergy Unknown Verified 08/12/20 18:23 [From Reglan] morphine Allergy Unknown Verified 08/12/20 18:23 prochlorperazine edisylate * Allergy Unknown Verified 08/12/20 18:23 [From Compazine] prochlorperazine maleate * Allergy Unknown Verified 08/12/20 18:23 [From Compazine] tramadol Allergy Unknown Verified 08/12/20 18:23 [id number] Antimigraine Allergy Unknown Verified 08/12/20 18:23 Agents lorazepam [From Ativan] AdvReac Anxiety Verified 08/12/20 18:23 - Social History Does the pt smoke?: No Smoking Status: Never smoker Does the pt drink ETOH?: No Does the pt have substance abuse?: No - Immunizations Immunizations are current?: Yes Immunizations: TDAP current <10years, Other immun not current - POLST Patient has POLST: No POLST Status: Full Code (Daughter is her DURABLE POWER OF DRIVER/MERCHANDISER. She would like to be full code, but if there is significant cognitive deficits as a result of her illnesses, she wants us to let her go.) PD ED PE NORMAL - Vitals Vital signs reviewed: Yes - General General: Alert and oriented X 3, Well developed/nourished, Other (wearing sunglasses and covering face with a towel) - HEENT HEENT: PERRL, EOMI, Moist mucous membranes - Neck Neck: Supple, no meningeal sign - Abdomen Abdomen: Soft, Non tender - Neuro Neuro: Alert and oriented X 3, dialysis tech 2-12 intact, Normal speech Eye Opening: Spontaneous Motor: Obeys Commands Verbal: Oriented GCS Score: 15 Results - Vitals Vitals: Vital Signs - 24 hr 08/12/20 08/12/20 18:18 19:58 Temperature 36.9 C 36.1 C L Heart Rate 83 95 Respiratory 16 18 Rate Blood Pressure 153/96 H 114/59 L O2 Saturation 96 97 Oxygen O2 Source [Without Activity] Room air O2 Source Room air PD MEDICAL DECISION MAKING - ED course Complexity details: re-evaluated patient, considered differential, d/w patient ED course: While attending to another ED patient, ED RN informed me that this patient said she still had migraine and was requesting another dose of dilaudid but half of previous dose. This was ordered. Shortly after it was given, I was informed that patient wanted to leave because her daughter was waiting in the car and had to leave. I was unable to reevaluate patient due to her abruptly leaving Departure - Departure Disposition: 07 Against Medical Advice Clinical Impression: Migraine headache Condition: Good Discharge Date/Time: 08/12/20 21:02
[2020-08-12] MEDS ORDERED: HYDROmorphone 1 MG/ML CARPUJECT IM STA ×2 (18:51→20:49)
[2020-08-12] MEDS ORDERED: ONDANSETRON 4 MG/2 ML VIAL IM STA (18:52)
[2020-08-12 19:58] VITALS: BP 114/59
== END 2020-08-12 21:02 | disposition left against medical advice (07) ==
LOC: EDUNIT# → SUPCPDRO 18:15 → ED 18:15
DX: G43.909 Migraine, unspecified, not intractable, without status migrainosus (principal)
CPT/HCPCS: 96372; 99283; J1170

== ENCOUNTER 2020-10-31 17:41 | Outpatient (CLI) | payer MEDICARE, MEDICAID | END 2020-10-31 17:42 | disposition home or self-care (01) | LOC: EMS 17:41 | DX: M54.9 Dorsalgia, unspecified (principal); R30.0 Dysuria | CPT/HCPCS: A0425; A0427 ==

== ENCOUNTER 2020-10-31 18:08 | Emergency (ER) | payer MEDICARE, MEDICAID ==
[2020-10-31] MEDS ORDERED: SODIUM CHLORIDE 0.9% 1,000 ML IV STA (18:13)
[2020-10-31] MEDS ORDERED: HYDROmorphone 1 MG/ML CARPUJECT IVP STA ×2 (18:13→19:14)
--- NOTE | 2020-10-31 18:23 | ED Physician Documentation ---
History of Present Illness - Stated complaint Stated Complaint: R FLANK PX - History obtained from History obtained from: Patient - History of Present Illness Timing: How many days ago (3) Pain level max: 10 Pain level now: 10 - Additonal information Additional information: Patient is a 60-year-old female who presents to the emergency department with right flank pain started several days ago. Similar to prior kidney stones. Nothing makes it better or worse. She states fevers 10 1-1 02 at home. Taking Motrin and Tylenol. Has had vomiting as well. She states she thinks she may have a UTI. Having pain and difficulty with urination. Review of Systems Ten Systems: 10 systems reviewed and negative Constitutional: reports: Fever, Chills Nose: denies: Rhinorrhea / runny nose, Congestion Throat: denies: Sore throat Cardiac: denies: Chest pain / pressure, Palpitations Respiratory: denies: Dyspnea, Cough GI: reports: Nausea. denies: Vomiting, Diarrhea : reports: Dysuria, Frequency, Hesitancy Skin: denies: Rash Musculoskeletal: reports: Back pain (R flank pain). denies: Neck pain Neurologic: denies: Headache PD PAST MEDICAL HISTORY - Past Medical History Cardiovascular: Congestive heart failure, Hypertension Respiratory: Asthma, Shortness of breath Neuro: Migraines, Seizure disorder Endocrine/Autoimmune: HyPOthyroidism GI: None PACKING MACHINE TENDER: None : Incontinence, Frequency, Kidney stones HEENT: None Psych: Depression, Anxiety, Bipolar disorder Musculoskeletal: Osteoarthritis, Fibromyalgia, Chronic back pain Derm: None - Past Surgical History Past Surgical History: Yes General: Other Ortho: Arthroscopic surgery /PACKING MACHINE TENDER: section, Hysterectomy, Oophrectomy, Breast reduction HEENT: Tonsil/Adenoidectomy - Present Medications Home Medications: Ambulatory Orders Medication Instructions Recorded Confirmed Amlodipine Besylate [Norvasc] 10 mg PO DAILY 05/12/19 10/31/20 Aspirin 81 mg PO DAILY 05/12/19 10/31/20 Butalbital/Aspirin/Caffeine 1 each PO PRN PRN 05/12/19 10/31/20 [Fiorinal 50-325-40 mg Capsule] Celecoxib [CeleBREX] 400 mg PO DAILY 05/12/19 10/31/20 Escitalopram Oxalate [Lexapro] 40 mg PO DAILY 05/12/19 10/31/20 Estrogens, Conjugated [Premarin] 1.25 mg PO DAILY 05/12/19 10/31/20 Levothyroxine [Synthroid] 300 mcg ORAL DAILY 05/12/19 10/31/20 Multivitamin [Daily Multiple 1 each PO DAILY 05/12/19 10/31/20 Vitamin] Stadol Ns 1 spray NS DAILY PRN 05/12/19 10/31/20 Tamsulosin HCl [Flomax] 0.4 mg PO DAILY 05/12/19 10/31/20 diphenhydrAMINE [Benadryl] 25 mg PO DAILY PM 05/12/19 10/31/20 Famotidine [Pepcid AC] 10 mg PO DAILY 08/12/20 10/31/20 Ondansetron HCl [Zofran] 4 mg PO Q6HR PRN 08/12/20 10/31/20 busPIRone [Buspar] 10 mg PO DAILY 08/12/20 10/31/20 tiZANidine [Zanaflex] 12 mg PO DAILY 08/12/20 10/31/20 Cefdinir 300 mg PO BID #20 cap 10/31/20 HYDROcod/ACETAM 5/325 [[place] 5/325] 1 - 2 ea PO Q6H PRN #14 tablet 10/31/20 - Allergies Allergies/Adverse Reactions: Allergies Allergy/AdvReac Type Severity Reaction Status Date / Time chlorpromazine HCl * Allergy Unknown Verified 10/31/20 18:23 [From Thorazine] droperidol [From Inapsine] Allergy Unknown Verified 10/31/20 18:23 ketorolac tromethamine * Allergy Unknown Verified 10/31/20 18:23 [From Toradol] meperidine HCl * Allergy Unknown Verified 10/31/20 18:23 [From Demerol] metoclopramide HCl * Allergy Unknown Verified 10/31/20 18:23 [From Reglan] morphine Allergy Unknown Verified 10/31/20 18:23 prochlorperazine edisylate * Allergy Unknown Verified 10/31/20 18:23 [From Compazine] prochlorperazine maleate * Allergy Unknown Verified 10/31/20 18:23 [From Compazine] tramadol Allergy Unknown Verified 10/31/20 18:23 [id number] Antimigraine Allergy Unknown Verified 10/31/20 18:23 Agents lorazepam [From Ativan] AdvReac Anxiety Verified 10/31/20 18:23 - Social History Does the pt smoke?: No Smoking Status: Never smoker Does the pt drink ETOH?: No Does the pt have substance abuse?: No - Immunizations Immunizations are current?: Yes Immunizations: TDAP current <10years, Other immun not current - POLST Patient has POLST: No POLST Status: Full Code (Daughter is her DURABLE POWER OF PASSENGER BOOKING CLERK. She would like to be full code, but if there is significant cognitive deficits as a result of her illnesses, she wants us to let her go.) PD ED PE NORMAL - Vitals Vital signs reviewed: Yes - General General: Alert and oriented X 3, No acute distress - HEENT HEENT: Moist mucous membranes - Neck Neck: Supple, no meningeal sign - Cardiac Cardiac: RRR, Strong equal pulses - Respiratory Respiratory: No respiratory distress, Clear bilaterally - Abdomen Abdomen: Soft, Non distended, Other (R flank tenderness. no peritoneal signs) - Back Back: No CVA TTP, No spinal TTP - Derm Derm: Warm and dry - Extremities Extremities: No edema, No calf tenderness / cord - Neuro Neuro: Alert and oriented X 3 - Psych Psych: Normal mood, Normal affect Results - Vitals Vitals: Vital Signs - 24 hr 10/31/20 10/31/20 10/31/20 18:10 18:41 19:45 Temperature 36.9 C 37 C 36.6 C Heart Rate 113 H 91 88 Respiratory 20 20 18 Rate Blood Pressure 207/134 H 155/126 H 134/85 H O2 Saturation 95 96 95 Oxygen O2 Source [Without Activity] Room air O2 Source Room air - Labs Labs: Microbiology 10/31/20 18:20 Urine Culture - Preliminary Urine,Clean Catch Escherichia Coli Laboratory Tests 10/31/20 10/31/20 10/31/20 18:20 18:30 18:30 WBC 10.7 RBC 4.92 Hgb 14.3 Hct 43.2 MCV 87.8 MCH 29.1 MCHC 33.1 RDW 13.4 Plt Count 272 MPV 9.4 Neut # (Auto) 7.0 H Lymph # (Auto) 2.6 [place] # (Auto) 0.6 Eos # (Auto) 0.3 Baso # (Auto) 0.1 Absolute Nucleated RBC 0.00 Nucleated RBC % 0.0 Sodium 139 Potassium 3.9 Chloride 103 Carbon Dioxide 25 Anion Gap 11.0 BUN 19 Creatinine 0.9 Estimated GFR (MDRD) 64 L Glucose 104 H Lactic Acid Calcium 9.2 Total Bilirubin 0.4 AST 22 ALT 30 Alkaline Phosphatase 65 Total Protein 7.0 Albumin 4.1 Globulin 2.9 Albumin/Globulin Ratio 1.4 Lipase 27 Urine Color ORANGE Urine Clarity CLOUDY Urine pH 6.0 Ur Specific [place] 1.025 Urine Protein TRACE Urine Glucose (UA) NEGATIVE Urine Ketones NEGATIVE Urine Occult Blood NEGATIVE Urine Nitrite POSITIVE H Urine Bilirubin NEGATIVE Urine Urobilinogen 0.2 (NORMAL) Ur Leukocyte Esterase SMALL H Urine RBC 0-5 Urine WBC >25 H Ur Squamous Epith Cells FEW Squamous Urine Bacteria Many H Urine Mucus Few Strands Ur Microscopic Review INDICATED Urine Culture Comments INDICATED 10/31/20 18:30 WBC RBC Hgb Hct MCV MCH MCHC RDW Plt Count MPV Neut # (Auto) Lymph # (Auto) [place] # (Auto) Eos # (Auto) Baso # (Auto) Absolute Nucleated RBC Nucleated RBC % Sodium Potassium Chloride Carbon Dioxide Anion Gap BUN Creatinine Estimated GFR (MDRD) Glucose Lactic Acid 2.1 Calcium Total Bilirubin AST ALT Alkaline Phosphatase Total Protein Albumin Globulin Albumin/Globulin Ratio Lipase Urine Color Urine Clarity Urine pH Ur Specific [place] Urine Protein Urine Glucose (UA) Urine Ketones Urine Occult Blood Urine Nitrite Urine Bilirubin Urine Urobilinogen Ur Leukocyte Esterase Urine RBC Urine WBC Ur Squamous Epith Cells Urine Bacteria Urine Mucus Ur Microscopic Review Urine Culture Comments - Rads (name of study) CT abd.pelvis Radiology: Final report received, EMP read contemporaneously, See rad report (1. No evidence of obstructive uropathy or urinary calcifications. 2. obstipation) PD MEDICAL DECISION MAKING - ED course Complexity details: reviewed results, re-evaluated patient, considered differential, d/w patient ED course: 60-year-old female presents to the emergency department with right-sided abdominal pain. No evidence of ureteral stone. Does have a UTI, possible early pyelonephritis. Given IV fluids, pain medication and Rocephin. Will place on antibiotics for home. Does not appear septic. Patient counseled regarding signs and symptoms for which I believe and urgent re-evaluation would be necess tone. Patient with good understanding of and agreement to plan and is comfortable going home at this time This document was made in part using voice recognition software. While efforts are made to proofread this document, sound alike and grammatical errors may occur. Departure - Departure Disposition: 01 Home, Self Care Clinical Impression: Pyelonephritis Condition: Good Instructions: ED Kidney Infec Female Follow-Up: Chino Seth MD [Primary Care Provider] - Within 1 week Prescriptions: Cefdinir 300 mg PO BID #20 cap HYDROcod/ACETAM 5/325 [[place] 5/325] 1 - 2 ea PO Q6H PRN #14 tablet PRN Reason: Pain Comments: Take all antibiotics until gone. Return if you worsen. Follow-up with your doctor for further care. I am prescribing a short course of narcotic pain medication for you. These are potentially dangerous and addictive medications that should be used carefully. These medications may constipate you. Take an gidm-piy-ckcykbd stool softener (docusate) twice daily with plenty of water while taking these medications. If you go 24 hours without a bowel movement, take poih-tyh-gcezprv miralax, per package instructions. Do not drink or drive while taking these medications. If you received narcotic or sedating medications while in the emergency department, do not drive for 24 hours. Store this medication in a safe, secure place and out of reach of children. It is a violation of federal law to give or sell this medication to another person or to use in a manner other than prescribed. The ED will not refill narcotic prescriptions, including prescriptions lost or stolen. To dispose of unwanted medications: 1. [facility] at [address] in [place] has a medication drop box. They accept prescription medications (in pill form) Monday through Monday 9:00 a.m. to 5:00 p.m. 2. The [facility] [employer] accepts prescription medications (in pill form only) for disposal year round. Call for more information. 3. Contact the [facility] for the next [facility] sponsored prescription drug collection event. , [phone], or [phone]; Discharge Date/Time: 10/31/20 19:45
[2020-10-31 18:37] LABS: BASOPHILS # (AUTO) 0.1 10^3/uL (0.0-0.1); BASOPHILS % (AUTO) 0.7 %; EOSINOPHILS # (AUTO) 0.3 10^3/uL (0.0-0.7); EOSINOPHILS % (AUTO) 3.2 %; HCT - HEMATOCRIT 43.2 % (37.0-47.0); HGB - HEMOGLOBIN 14.3 g/dL (12.0-16.0); LYMPHOCYTES # (AUTO) 2.6 10^3/uL (1.5-3.5); LYMPHOCYTES % (AUTO) 24.1 %; MEAN CORPUSCULAR HEMOGLOBIN 29.1 pg (27.0-31.0); MEAN CORPUSCULAR HGB CONC 33.1 g/dL (32.0-36.0); MEAN CORPUSCULAR VOLUME 87.8 fL (81.0-99.0); MEAN PLATELET VOLUME 9.4 fL (7.9-10.8); MONOCYTES # (AUTO) 0.6 10^3/uL (0.0-1.0); NEUTROPHILS % (AUTO) 65.6 %; PLT - PLATELET COUNT 272 10^3/uL (130-450); RED BLOOD COUNT 4.92 10^6/uL (4.20-5.40); RED CELL DISTRIBUTION WIDTH 13.4 % (12.0-15.0); WHITE BLOOD COUNT 10.7 x10^3/uL (4.8-10.8)
[2020-10-31 18:51] LABS: ALBUMIN 4.1 g/dL (3.2-5.5); ALBUMIN/GLOBULIN RATIO 1.4 (1.0-2.2); BILIRUBIN,TOTAL 0.4 mg/dL (0.2-1.0); CALCIUM 9.2 mg/dL (8.5-10.3); CREATININE 0.9 mg/dL (0.4-1.0); POTASSIUM 3.9 mmol/L (3.5-5.0)
[2020-10-31 19:12] LABS: BILIRUBIN,URINE NEGATIVE (NEGATIVE); GLUCOSE, URINE (UA) NEGATIVE (NEGATIVE); KETONES,URINE (UA) NEGATIVE (NEGATIVE); LEUKOCYTE ESTERASE, URINE SMALL (NEGATIVE); NITRITE,URINE POSITIVE (NEGATIVE); OCCULT BLOOD,URINE NEGATIVE (NEGATIVE); PROTEIN,URINE TRACE mg/dL (NEGATIVE); UROBILINOGEN,URINE 0.2 (NORMAL) E.U./dL (NORMAL)
[2020-10-31] MEDS ORDERED: ONDANSETRON 4 MG/2 ML VIAL IVP STA (19:14)
[2020-10-31 19:16] LABS: CLARITY,URINE CLOUDY (CLEAR)
[2020-10-31 19:18] LABS: RBC,URINE 0-5 /HPF (0-5); WBC,URINE >25 /HPF (0-5)
[2020-10-31 19:19] LABS: BACTERIA,URINE Many /HPF (None Seen); MUCUS,URINE Few Strands; SQUAMOUS EPITHELIAL CELL,UR FEW Squamous (<= Few)
[2020-10-31] MEDS ORDERED: cefTRIAXone 1 GM VIAL IVP STA (19:23)
--- NOTE | 2020-10-31 19:31 | CT Report ---
PROCEDURE: Abdomen/Pelvis WO INDICATIONS: R flank pain, h/o renal stones TECHNIQUE: Noncontrast 5 mm thick sections acquired from the diaphragms to the symphysis. 5 mm coronal and sagi ttal reformats were then performed. For radiation dose reduction, the following was used: automated exposure control, adjustment of mA and/or kV according to patient size. COMPARISON: 10/18/2019 FINDINGS: Image quality: Adequate, slightly limited by body habitus.. ABDOMEN: Lung bases: Lung bases are clear. Heart size is normal. Solid organs: Liver and spleen are normal in size. Gallbladder is without calcifications are perich olecystic inflammation. Pancreas is normal in contours. No adrenal nodules. The right kidney is und er rotated. Both kidneys demonstrate multilobulated cortical contour. No hydronephrosis. Peritoneum and bowel: Unenhanced bowel loops demonstrate normal wall thickness and caliber. Increas ed quantity of solid stool throughout the colon. There is a normal appendix. No free fluid or air. Nodes and vessels: No retroperitoneal or mesenteric adenopathy by size criteria. Aorta and inferior vena cava are normal in caliber. Miscellaneous: No ventral hernias. PELVIS: Genitourinary: Bladder wall thickness is normal. The uterus is absent. Miscellaneous: No inguinal hernias or adenopathy. Bones: No suspicious bony lesions. No vertebral body compression fractures. Multilevel disc space degeneration. IMPRESSION: 1. No evidence of obstructive uropathy or urinary calcifications. 2. Obstipation. Reviewed by: Zenia Soler MD on 10/31/2020 7:30 PM PDT Approved by: Zenia Soler MD on 10/31/2020 7:30 PM PDT Station ID: [id number]
[2020-10-31 20:10] VITALS: BP 134/85
== END 2020-10-31 19:45 | disposition home or self-care (01) ==
LOC: EDUNIT# → ED 18:08 → SUPCPDRO 18:08 → ED 19:45
DX: N12 Tubulo-interstitial nephritis, not specified as acute or chronic (principal)
CPT/HCPCS: 36415; 74176; 80053; 81001; 83605; 83690; 85025; 87040; 87086; 87181; 96361; 96374; 96375; 96376; 99284; J1170; 81003

== ENCOUNTER 2020-12-02 17:16 | Emergency (ER) | payer MEDICARE, MEDICAID ==
[2020-12-02 17:52] LABS: BASOPHILS # (AUTO) 0.1 10^3/uL (0.0-0.1); BASOPHILS % (AUTO) 0.5 %; EOSINOPHILS # (AUTO) 0.4 10^3/uL (0.0-0.7); EOSINOPHILS % (AUTO) 2.5 %; HCT - HEMATOCRIT 44.7 % (37.0-47.0); HGB - HEMOGLOBIN 14.6 g/dL (12.0-16.0); LYMPHOCYTES # (AUTO) 3.2 10^3/uL (1.5-3.5); LYMPHOCYTES % (AUTO) 22.1 %; MEAN CORPUSCULAR HEMOGLOBIN 29.1 pg (27.0-31.0); MEAN CORPUSCULAR HGB CONC 32.7 g/dL (32.0-36.0); MEAN PLATELET VOLUME 9.6 fL (7.9-10.8); MONOCYTES # (AUTO) 0.9 10^3/uL (0.0-1.0); MONOCYTES % (AUTO) 6.3 %; NEUTROPHILS % (AUTO) 67.9 %; PLT - PLATELET COUNT 306 10^3/uL (130-450); RED BLOOD COUNT 5.02 10^6/uL (4.20-5.40); RED CELL DISTRIBUTION WIDTH 14.3 % (12.0-15.0); WHITE BLOOD COUNT 14.7 x10^3/uL (4.8-10.8)
[2020-12-02 18:04] LABS: GLUCOSE, URINE (UA) NEGATIVE (NEGATIVE); KETONES,URINE (UA) TRACE mg/dL (NEGATIVE); LEUKOCYTE ESTERASE, URINE TRACE (NEGATIVE); NITRITE,URINE NEGATIVE (NEGATIVE); OCCULT BLOOD,URINE NEGATIVE (NEGATIVE); PH,URINE 5.5 PH (5.0-7.5); PROTEIN,URINE NEGATIVE (NEGATIVE); UROBILINOGEN,URINE 0.2 (NORMAL) E.U./dL (NORMAL)
[2020-12-02 18:12] LABS: BACTERIA,URINE Moderate /HPF (None Seen); BILIRUBIN,URINE NEGATIVE (NEGATIVE); CLARITY,URINE SL. CLOUDY (CLEAR); ICTOTEST,URINE NEGATIVE; RBC,URINE 0-5 /HPF (0-5); SQUAMOUS EPITHELIAL CELL,UR FEW Squamous (<= Few); WBC,URINE 0-3 /HPF (0-5)
[2020-12-02 18:13] LABS: MUCUS,URINE Few Strands
[2020-12-02 18:15] LABS: ALBUMIN 4.2 g/dL (3.2-5.5); ALBUMIN/GLOBULIN RATIO 1.6 (1.0-2.2); BILIRUBIN,TOTAL 0.5 mg/dL (0.2-1.0); CALCIUM 9.5 mg/dL (8.5-10.3); CREATININE 1.2 mg/dL (0.4-1.0); POTASSIUM 4.4 mmol/L (3.5-5.0); TOTAL PROTEIN 6.8 g/dL (6.7-8.2)
--- NOTE | 2020-12-02 19:05 | ED Physician Documentation ---
PD HPI ABD PAIN - Stated complaint Stated Complaint: R FLANK PX - Chief complaint Chief Complaint: Abd Pain - History obtained from History obtained from: Patient - History of Present Illness Timing - onset: Today Timing - duration: Days (1) Timing - details: Abrupt onset, Still present Quality: Sharp, Stabbing, Pain Location: RLQ Radiation: Right flank Improved by: No: Eating Worsened by: No: Eating, Moving, Palpation Associated symptoms: Nausea. No: Fever, Vomiting, Diarrhea Similar symptoms before: Diagnosis (kidney stones and kidney infections with similar symptoms in the past.) Recently seen: Emergency Dept (in October 2020 with similar pain and had CT that showed no kidney stones. Did have UTI at the time.) Review of Systems Constitutional: denies: Fever, Chills Nose: denies: Rhinorrhea / runny nose, Congestion Throat: denies: Sore throat Respiratory: denies: Cough GI: reports: Abdominal Pain, Nausea. 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 : Incontinence, Frequency, Kidney stones HEENT: None Psych: Depression, Anxiety, Bipolar disorder Musculoskeletal: Osteoarthritis, Fibromyalgia, Chronic back pain Derm: None - Past Surgical History Past Surgical History: Yes General: Other Ortho: Arthroscopic surgery /BUSINESS AREA DIRECTOR: section, Hysterectomy, Oophrectomy, Breast reduction HEENT: Tonsil/Adenoidectomy - Present Medications Home Medications: Ambulatory Orders Medication Instructions Recorded Confirmed Amlodipine Besylate [Norvasc] 10 mg PO DAILY 05/12/19 10/31/20 Aspirin 81 mg PO DAILY 05/12/19 10/31/20 Butalbital/Aspirin/Caffeine 1 each PO PRN PRN 05/12/19 10/31/20 [Fiorinal 50-325-40 mg Capsule] Celecoxib [CeleBREX] 400 mg PO DAILY 05/12/19 10/31/20 Escitalopram Oxalate [Lexapro] 40 mg PO DAILY 05/12/19 10/31/20 Estrogens, Conjugated [Premarin] 1.25 mg PO DAILY 05/12/19 10/31/20 Levothyroxine [Synthroid] 300 mcg ORAL DAILY 05/12/19 10/31/20 Multivitamin [Daily Multiple 1 each PO DAILY 05/12/19 10/31/20 Vitamin] Stadol Ns 1 spray NS DAILY PRN 05/12/19 10/31/20 Tamsulosin HCl [Flomax] 0.4 mg PO DAILY 05/12/19 10/31/20 diphenhydrAMINE [Benadryl] 25 mg PO DAILY PM 05/12/19 10/31/20 Famotidine [Pepcid AC] 10 mg PO DAILY 08/12/20 10/31/20 Ondansetron HCl [Zofran] 4 mg PO Q6HR PRN 08/12/20 10/31/20 busPIRone [Buspar] 10 mg PO DAILY 08/12/20 10/31/20 tiZANidine [Zanaflex] 12 mg PO DAILY 08/12/20 10/31/20 Cefdinir 300 mg PO BID #20 cap 10/31/20 HYDROcod/ACETAM 5/325 [[place] 5/325] 1 - 2 ea PO Q6H PRN #14 tablet 10/31/20 cephALEXin [Keflex] 500 mg PO QID #25 cap 12/02/20 - Allergies Allergies/Adverse Reactions: Allergies Allergy/AdvReac Type Severity Reaction Status Date / Time chlorpromazine HCl * Allergy Unknown Verified 12/02/20 17:27 [From Thorazine] droperidol [From Inapsine] Allergy Unknown Verified 12/02/20 17:27 ketorolac tromethamine * Allergy Unknown Verified 12/02/20 17:27 [From Toradol] meperidine HCl * Allergy Unknown Verified 12/02/20 17:27 [From Demerol] metoclopramide HCl * Allergy Unknown Verified 12/02/20 17:27 [From Reglan] morphine Allergy Unknown Verified 12/02/20 17:27 prochlorperazine edisylate * Allergy Unknown Verified 12/02/20 17:27 [From Compazine] prochlorperazine maleate * Allergy Unknown Verified 12/02/20 17:27 [From Compazine] tramadol Allergy Unknown Verified 12/02/20 17:27 [id number] Antimigraine Allergy Unknown Verified 12/02/20 17:27 Agents lorazepam [From Ativan] AdvReac Anxiety Verified 12/02/20 17:27 - Social History Does the pt smoke?: No Smoking Status: Never smoker Does the pt drink ETOH?: No Does the pt have substance abuse?: No - Immunizations Immunizations are current?: Yes Immunizations: TDAP current <10years, Other immun not current - POLST Patient has POLST: No POLST Status: Full Code (Daughter is her DURABLE POWER OF SHIP PILOT DISPATCHER. She would like to be full code, but if there is significant cognitive deficits as a result of her illnesses, she wants us to let her go.) PD ED PE NORMAL - Vitals Vital signs reviewed: Yes - General General: Alert and oriented X 3, No acute distress, Well developed/nourished - Cardiac Cardiac: RRR, No murmur - Respiratory Respiratory: Clear bilaterally - Abdomen Abdomen: Normal bowel sounds, Soft, Non distended, No organomegaly, Other (some tender without percussion nor rebound in lower right. ) - Back Back: No CVA TTP - Derm Derm: Normal color, Warm and dry - Neuro Neuro: Alert and oriented X 3, No motor deficit, Normal speech Results - Vitals Vitals: Vital Signs - 24 hr 12/02/20 12/02/20 12/02/20 17:23 19:31 20:27 Temperature 36.9 C Heart Rate 88 77 73 Respiratory 18 20 18 Rate Blood Pressure 120/88 H 127/83 H 133/73 H O2 Saturation 97 98 96 12/02/20 20:47 Temperature Heart Rate 75 Respiratory 16 Rate Blood Pressure 133/77 H O2 Saturation 94 Oxygen O2 Source [Without Activity] Room air O2 Source Room air - Labs Labs: Laboratory Tests 12/02/20 12/02/20 12/02/20 17:33 17:45 17:45 WBC 14.7 H RBC 5.02 Hgb 14.6 Hct 44.7 MCV 89.0 MCH 29.1 MCHC 32.7 RDW 14.3 Plt Count 306 MPV 9.6 Neut # (Auto) 10.0 H Lymph # (Auto) 3.2 [place] # (Auto) 0.9 Eos # (Auto) 0.4 Baso # (Auto) 0.1 Absolute Nucleated RBC 0.00 Nucleated RBC % 0.0 Sodium 139 Potassium 4.4 Chloride 100 L Carbon Dioxide 25 Anion Gap 14.0 H BUN 28 H Creatinine 1.2 H Estimated GFR (MDRD) 46 L Glucose 98 Calcium 9.5 Total Bilirubin 0.5 AST 27 ALT 24 Alkaline Phosphatase 73 Total Protein 6.8 Albumin 4.2 Globulin 2.6 Albumin/Globulin Ratio 1.6 Lipase 20 L Urine Color ORANGE Urine Clarity SL. CLOUDY Urine pH 5.5 Ur Specific [place] >=1.030 H Urine Protein NEGATIVE Urine Glucose (UA) NEGATIVE Urine Ketones TRACE Urine Occult Blood NEGATIVE Urine Nitrite NEGATIVE Urine Bilirubin NEGATIVE Urine Urobilinogen 0.2 (NORMAL) Ur Leukocyte Esterase TRACE H Urine RBC 0-5 Urine WBC 0-3 Ur Squamous Epith Cells FEW Squamous Urine Bacteria Moderate H Urine Mucus Few Strands Ur Microscopic Review INDICATED Urine Culture Comments INDICATED PD MEDICAL DECISION MAKING - ED course Complexity details: reviewed results, considered differential (UA showing signs of UTI. symptoms c/w it. CT in October did not have stones, so less likely now. ), d/w patient Departure - Departure Disposition: 01 Home, Self Care Clinical Impression: UTI (urinary tract infection), Acute flank pain Condition: Stable Record reviewed to determine appropriate education?: Yes Follow-Up: Chino Seth MD [Primary Care Provider] - Prescriptions: cephALEXin [Keflex] 500 mg PO QID #25 cap Comments: Stay well hydrated. Continue your usual medications. Add Cephalexin 4 times daily for UTI infection. Recheck if not improving over the next couple of days. Return if worsening. Discharge Date/Time: 12/02/20 20:49
[2020-12-02] MEDS ORDERED: cefTRIAXone 1 GM VIAL IVP STA (19:13)
[2020-12-02] MEDS ORDERED: SODIUM CHLORIDE 0.9% 1,000 ML IV STA (19:13)
[2020-12-02] MEDS ORDERED: ONDANSETRON 4 MG/2 ML VIAL IVP STA (19:13)
[2020-12-02] MEDS ORDERED: HYDROmorphone 1 MG/ML CARPUJECT IVP STA ×2 (19:13→19:46)
[2020-12-02] MEDS ORDERED: fentaNYL 100 MCG/2 ML VIAL IVP STA (20:21)
[2020-12-02 20:48] VITALS: BP 133/77
== END 2020-12-02 20:49 | disposition home or self-care (01) ==
LOC: ED 17:16
DX: N39.0 Urinary tract infection, site not specified (principal); I10 Essential (primary) hypertension
CPT/HCPCS: 36415; 80053; 81001; 83690; 85025; 87086; 96374; 96375; 96376; 99284; 99285; J1170; 81003; 87181

== ENCOUNTER 2020-12-05 16:57 | Emergency (ER) | payer MEDICARE, MEDICAID ==
--- NOTE | 2020-12-05 17:49 | ED Physician Documentation ---
PD HPI ABD PAIN - Stated complaint Stated Complaint: KIDNEY INFECTION PX - Chief complaint Chief Complaint: Abd Pain - History obtained from History obtained from: Patient - History of Present Illness Timing - onset: How many days ago (4) Timing - duration: Days (4) Pain level max: 9 Pain level now: 9 Quality: Aching, Pain Associated symptoms: Nausea. No: Fever, Vomiting, Hematemesis, Diarrhea - Additional information Additional information: Patient is a 60-year-old female with recurrent right flank pain secondary to pyelonephritis and UTI. She is he was seen here recently treated for UTI, but states the pain has increased. Nothing makes it better or worse. Her last CT scan was about a month ago. Showed no ureteral stones. Review of Systems Constitutional: denies: Fever, Chills Respiratory: denies: Cough GI: denies: Vomiting, Diarrhea Skin: denies: Rash Neurologic: denies: Headache PD PAST MEDICAL HISTORY - Past Medical History Cardiovascular: Congestive heart failure, Hypertension Respiratory: Asthma, Shortness of breath Neuro: Migraines, Seizure disorder Endocrine/Autoimmune: HyPOthyroidism GI: None CERTIFICATION AND SELECTION SPECIALIST: None : Incontinence, Frequency, Kidney stones HEENT: None Psych: Depression, Anxiety, Bipolar disorder Musculoskeletal: Osteoarthritis, Fibromyalgia, Chronic back pain Derm: None - Past Surgical History Past Surgical History: Yes General: Other Ortho: Arthroscopic surgery /CERTIFICATION AND SELECTION SPECIALIST: section, Hysterectomy, Oophrectomy, Breast reduction HEENT: Tonsil/Adenoidectomy - Present Medications Home Medications: Ambulatory Orders Medication Instructions Recorded Confirmed Amlodipine Besylate [Norvasc] 10 mg PO DAILY 05/12/19 12/05/20 Aspirin 81 mg PO DAILY 05/12/19 12/05/20 Butalbital/Aspirin/Caffeine 1 each PO PRN PRN 05/12/19 12/05/20 [Fiorinal 50-325-40 mg Capsule] Celecoxib [CeleBREX] 400 mg PO DAILY 05/12/19 12/05/20 Escitalopram Oxalate [Lexapro] 40 mg PO DAILY 05/12/19 12/05/20 Estrogens, Conjugated [Premarin] 1.25 mg PO DAILY 05/12/19 12/05/20 Levothyroxine [Synthroid] 300 mcg ORAL DAILY 05/12/19 12/05/20 Multivitamin [Daily Multiple 1 each PO DAILY 05/12/19 12/05/20 Vitamin] Stadol Ns 1 spray NS DAILY PRN 05/12/19 12/05/20 Tamsulosin HCl [Flomax] 0.4 mg PO DAILY 05/12/19 12/05/20 diphenhydrAMINE [Benadryl] 25 mg PO DAILY PM 05/12/19 12/05/20 Famotidine [Pepcid AC] 10 mg PO DAILY 08/12/20 12/05/20 Ondansetron HCl [Zofran] 4 mg PO Q6HR PRN 08/12/20 12/05/20 busPIRone [Buspar] 10 mg PO DAILY 08/12/20 12/05/20 tiZANidine [Zanaflex] 12 mg PO DAILY 08/12/20 12/05/20 Cefdinir 300 mg PO BID #20 cap 10/31/20 12/05/20 HYDROcod/ACETAM 5/325 [[place]more 5/325] 1 - 2 ea PO Q6H PRN #14 tablet 10/31/20 12/05/20 cephALEXin [Keflex] 500 mg PO QID #25 cap 12/02/20 12/05/20 - Allergies Allergies/Adverse Reactions: Allergies Allergy/AdvReac Type Severity Reaction Status Date / Time chlorpromazine HCl * Allergy Unknown Verified 12/05/20 17:06 [From Thorazine] droperidol [From Inapsine] Allergy Unknown Verified 12/05/20 17:06 ketorolac tromethamine * Allergy Unknown Verified 12/05/20 17:06 [From Toradol] meperidine HCl * Allergy Unknown Verified 12/05/20 17:06 [From Demerol] metoclopramide HCl * Allergy Unknown Verified 12/05/20 17:06 [From Reglan] morphine Allergy Unknown Verified 12/05/20 17:06 prochlorperazine edisylate * Allergy Unknown Verified 12/05/20 17:06 [From Compazine] prochlorperazine maleate * Allergy Unknown Verified 12/05/20 17:06 [From Compazine] tramadol Allergy Unknown Verified 12/05/20 17:06 [id number] Antimigraine Allergy Unknown Verified 12/05/20 17:06 Agents lorazepam [From Ativan] AdvReac Anxiety Verified 12/05/20 17:06 - Social History Does the pt smoke?: No Smoking Status: Never smoker Does the pt drink ETOH?: No Does the pt have substance abuse?: No - Immunizations Immunizations are current?: Yes Immunizations: TDAP current <10years, Other immun not current - POLST Patient has POLST: No POLST Status: Full Code (Daughter is her DURABLE POWER OF LOCK TENDER. She would like to be full code, but if there is significant cognitive deficits as a result of her illnesses, she wants us to let her go.) PD ED PE NORMAL - Vitals Vital signs reviewed: Yes - General General: Alert and oriented X 3, No acute distress, Well developed/nourished - HEENT HEENT: PERRL, Moist mucous membranes - Neck Neck: Supple, no meningeal sign - Cardiac Cardiac: RRR - Respiratory Respiratory: No respiratory distress, Clear bilaterally - Abdomen Abdomen: Soft, Non tender, Non distended - Back Back: No CVA TTP, No spinal TTP - Derm Derm: Warm and dry - Extremities Extremities: No edema - Neuro Neuro: Alert and oriented X 3 - Psych Psych: Normal mood, Normal affect Results - Vitals Vitals: Vital Signs - 24 hr 12/05/20 12/05/20 12/05/20 17:02 18:50 19:22 Temperature 37.5 C Heart Rate 99 84 81 Respiratory 18 23 21 Rate Blood Pressure 163/89 H 131/120 H 159/90 H O2 Saturation 100 93 95 12/05/20 20:29 Temperature 37.1 C Heart Rate 72 Respiratory 19 Rate Blood Pressure 129/80 O2 Saturation 96 Oxygen O2 Source [Without Activity] Room air O2 Source Room air - Labs Labs: Laboratory Tests 12/05/20 12/05/20 12/05/20 18:25 18:32 18:32 WBC 10.4 RBC 4.63 Hgb 13.4 Hct 41.6 MCV 89.8 MCH 28.9 MCHC 32.2 RDW 14.3 Plt Count 268 MPV 9.2 Neut # (Auto) 6.8 H Lymph # (Auto) 2.4 Gilliam # (Auto) 0.7 Eos # (Auto) 0.4 Baso # (Auto) 0.0 Absolute Nucleated RBC 0.00 Nucleated RBC % 0.0 Sodium 141 Potassium 3.6 Chloride 104 Carbon Dioxide 25 Anion Gap 12.0 BUN 26 H Creatinine 0.8 Estimated GFR (MDRD) 73 L Glucose 129 H Calcium 8.9 Total Bilirubin 0.3 AST 20 ALT 22 Alkaline Phosphatase 69 Total Protein 6.5 L Albumin 3.8 Globulin 2.7 Albumin/Globulin Ratio 1.4 Lipase 20 L Urine Color YELLOW Urine Clarity CLEAR Urine pH 5.5 Ur Specific [place] >=1.030 H Urine Protein NEGATIVE Urine Glucose (UA) NEGATIVE Urine Ketones NEGATIVE Urine Occult Blood NEGATIVE Urine Nitrite NEGATIVE Urine Bilirubin NEGATIVE Urine Urobilinogen 0.2 (NORMAL) Ur Leukocyte Esterase NEGATIVE Ur Microscopic Review NOT INDICATED Urine Culture Comments NOT INDICATED - Rads (name of study) CT abd/pelvis Radiology: Final report received, EMP read contemporaneously, See rad report (no acute abnormality.) PD MEDICAL DECISION MAKING - ED course Complexity details: reviewed old records, reviewed results, re-evaluated patient, considered differential, d/w patient, d/w family ED course: Pain well controlled in the emergency department. Unclear etiology of her sym ptoms. Patient is well-appearing, nontoxic. Afebrile. No acute findings on abdominal CT or laboratory testing. Her urine culture from 2 days ago grew E. coli that is sensitive to the antibiotic she was placed on. We will continue the antibiotics. She has pain medication at home. Patient counseled regarding signs and symptoms for which I believe and urgent re-evaluation would be necessary. Patient with good understanding of and agreement to plan and is comfortable going home at this time This document was made in part using voice recognition software. While efforts are made to proofread this document, sound alike and grammatical errors may occur. Departure - Departure Disposition: 01 Home, Self Care Clinical Impression: Right flank pain Condition: Good Instructions: ED Abdominal Pain Unkn Cause Follow-Up: Chino Seth MD [Primary Care Provider] - Within 1 week Comments: The cause of your symptoms is unclear. Please finish the antibiotics previously prescribed to you. Your urinalysis is normal tonight as is your white blood cell count. Your CT does not show any acute abnormalities either. Follow-up with your doctor for further care. Discharge Date/Time: 12/05/20 20:29
[2020-12-05] MEDS ORDERED: HYDROmorphone 1 MG/ML CARPUJECT IM STA (18:22)
[2020-12-05] MEDS ORDERED: ONDANSETRON 4 MG/2 ML VIAL IM STA (18:22)
[2020-12-05 18:39] LABS: BASOPHILS % (AUTO) 0.4 %; EOSINOPHILS # (AUTO) 0.4 10^3/uL (0.0-0.7); EOSINOPHILS % (AUTO) 3.8 %; HCT - HEMATOCRIT 41.6 % (37.0-47.0); HGB - HEMOGLOBIN 13.4 g/dL (12.0-16.0); LYMPHOCYTES # (AUTO) 2.4 10^3/uL (1.5-3.5); LYMPHOCYTES % (AUTO) 23.4 %; MEAN CORPUSCULAR HEMOGLOBIN 28.9 pg (27.0-31.0); MEAN CORPUSCULAR HGB CONC 32.2 g/dL (32.0-36.0); MEAN CORPUSCULAR VOLUME 89.8 fL (81.0-99.0); MEAN PLATELET VOLUME 9.2 fL (7.9-10.8); MONOCYTES # (AUTO) 0.7 10^3/uL (0.0-1.0); MONOCYTES % (AUTO) 6.5 %; NEUTROPHILS # (AUTO) 6.8 10^3/uL (1.5-6.6); NEUTROPHILS % (AUTO) 65.4 %; PLT - PLATELET COUNT 268 10^3/uL (130-450); RED BLOOD COUNT 4.63 10^6/uL (4.20-5.40); RED CELL DISTRIBUTION WIDTH 14.3 % (12.0-15.0); WHITE BLOOD COUNT 10.4 x10^3/uL (4.8-10.8)
[2020-12-05] MEDS ORDERED: HYDROmorphone 1 MG/ML CARPUJECT IVP STA ×3 (18:40→20:10)
[2020-12-05] MEDS ORDERED: ONDANSETRON 4 MG/2 ML VIAL IVP STA ×2 (18:40→20:10)
[2020-12-05 18:43] LABS: BILIRUBIN,URINE NEGATIVE (NEGATIVE); GLUCOSE, URINE (UA) NEGATIVE (NEGATIVE); KETONES,URINE (UA) NEGATIVE (NEGATIVE); LEUKOCYTE ESTERASE, URINE NEGATIVE (NEGATIVE); NITRITE,URINE NEGATIVE (NEGATIVE); OCCULT BLOOD,URINE NEGATIVE (NEGATIVE); PH,URINE 5.5 PH (5.0-7.5); PROTEIN,URINE NEGATIVE (NEGATIVE); UROBILINOGEN,URINE 0.2 (NORMAL) E.U./dL (NORMAL)
[2020-12-05 18:46] LABS: CLARITY,URINE CLEAR (CLEAR)
[2020-12-05] MEDS ORDERED: IOPAMIDOL-300 50 ML VIAL ONE (18:47)
[2020-12-05 18:52] LABS: ALBUMIN 3.8 g/dL (3.2-5.5); ALBUMIN/GLOBULIN RATIO 1.4 (1.0-2.2); BILIRUBIN,TOTAL 0.3 mg/dL (0.2-1.0); CALCIUM 8.9 mg/dL (8.5-10.3); CREATININE 0.8 mg/dL (0.4-1.0); POTASSIUM 3.6 mmol/L (3.5-5.0); TOTAL PROTEIN 6.5 g/dL (6.7-8.2)
[2020-12-05] MEDS ORDERED: IOPAMIDOL-300 50 ML VIAL PO ONE (19:33)
--- NOTE | 2020-12-05 19:51 | CT Report ---
PROCEDURE: Abdomen/Pelvis W INDICATIONS: R flank pain CONTRAST: IV CONTRAST: Isovue 300 ml: 100 PO CONTRAST: *NO PO CONTRAST TECHNIQUE: After the administration of intravenous contrast, 5 mm thick sections acquired from the diaphragms to the symphysis. 5 mm thick coronal and sagittal reformats were acquired. For radiation dose reducti on, the following was used: automated exposure control, adjustment of mA and/or kV according to jerry ent size. COMPARISON: 10/31/2020 FINDINGS: Image quality: Excellent. ABDOMEN: Lung bases: Lung bases are clear. Heart size is normal. Solid organs: Liver and spleen are normal in size and enhancement. Gallbladder is normal. Biliary system is non dilated. Pancreas enhances normally. No adrenal nodules. Right kidney is under rotate d as seen and described on prior studies. Symmetric and normal renal parenchymal enhancement. No urin tone tract calculus, perinephric fat stranding, or hydroureteronephrosis. Peritoneum and bowel: Bowel loops demonstrate normal wall thickness and caliber. No free fluid or a ir. Nodes and vessels: No retroperitoneal or mesenteric adenopathy by size criteria. Aorta and inferior vena cava are normal in size. Miscellaneous: No ventral hernias. PELVIS: Genitourinary: Bladder wall thickness is normal. Miscellaneous: No inguinal hernias or adenopathy. Bones: No suspicious bony lesions. No vertebral body compression fractures. IMPRESSION: No acute finding or other abnormality to explain right flank pain. Reviewed by: Imer Lyons MD on 12/05/2020 7:49 PM PDT Approved by: Imer Lyons MD on 12/05/2020 7:49 PM PDT Station ID: [id number]
[2020-12-05 20:31] VITALS: BP 129/80
== END 2020-12-05 20:29 | disposition home or self-care (01) ==
LOC: ED 16:57
DX: N39.0 Urinary tract infection, site not specified (principal); B96.20 Unspecified Escherichia coli [E. coli] as the cause of diseases classified elsewhere; Z79.82 Long term (current) use of aspirin; I11.0 Hypertensive heart disease with heart failure; I50.9 Heart failure, unspecified
CPT/HCPCS: 36415; 74177; 80053; 81003; 83690; 85025; 96372; 96374; 96375; 96376; 99284; J1170; Q9967; 81001; 87086

== ENCOUNTER 2021-01-23 15:49 | Outpatient (CLI) | payer MEDICARE, MEDICAID | END 2021-01-23 15:50 | disposition critical access hospital (66) | LOC: EMS 15:49 | DX: R10.9 Unspecified abdominal pain (principal); Z87.442 Personal history of urinary calculi | CPT/HCPCS: A0425; A0429 ==

== ENCOUNTER 2021-01-23 16:16 | Emergency (ER) | payer MEDICARE, MEDICAID ==
[2021-01-23 16:48] LABS: BASOPHILS # (AUTO) 0.1 10^3/uL (0.0-0.1); BASOPHILS % (AUTO) 0.5 %; EOSINOPHILS # (AUTO) 0.4 10^3/uL (0.0-0.7); HCT - HEMATOCRIT 42.4 % (37.0-47.0); HGB - HEMOGLOBIN 13.7 g/dL (12.0-16.0); LYMPHOCYTES # (AUTO) 2.8 10^3/uL (1.5-3.5); LYMPHOCYTES % (AUTO) 29.3 %; MEAN CORPUSCULAR HEMOGLOBIN 28.8 pg (27.0-31.0); MEAN CORPUSCULAR HGB CONC 32.3 g/dL (32.0-36.0); MEAN CORPUSCULAR VOLUME 89.3 fL (81.0-99.0); MEAN PLATELET VOLUME 9.3 fL (7.9-10.8); MONOCYTES # (AUTO) 0.7 10^3/uL (0.0-1.0); MONOCYTES % (AUTO) 7.7 %; NEUTROPHILS # (AUTO) 5.5 10^3/uL (1.5-6.6); PLT - PLATELET COUNT 278 10^3/uL (130-450); RED BLOOD COUNT 4.75 10^6/uL (4.20-5.40); WHITE BLOOD COUNT 9.5 x10^3/uL (4.8-10.8)
[2021-01-23] MEDS ORDERED: HYDROmorphone 1 MG/ML CARPUJECT IM STA ×2 (16:51→17:36)
[2021-01-23] MEDS ORDERED: ONDANSETRON ODT 4 MG TABLET TL STA (16:51)
--- NOTE | 2021-01-23 16:53 | ED Physician Documentation ---
History of Present Illness - Stated complaint Stated Complaint: kidney pain - Chief complaint Chief Complaint: Abd Pain - Additonal information Additional information: 60-year-old female presents emergency department for evaluation of 2 days of dysuria urgency and frequency. Also reporting right flank pain. Has a history of previously known pyelonephritis as well as nephrolithiasis. Patient endorses a fever of 101 yesterday. Some nausea but no vomiting. No diarrhea. She was unable to follow-up with PCP or urologist. Review of Systems Constitutional: reports: Fever Eyes: reports: Reviewed and negative Ears: reports: Reviewed and negative Throat: reports: Reviewed and negative Cardiac: reports: Reviewed and negative Respiratory: reports: Reviewed and negative GI: reports: Abdominal Pain, Nausea. denies: Vomiting : reports: Dysuria, Frequency, Hematuria Skin: reports: Reviewed and negative Musculoskeletal: reports: Reviewed and negative PD PAST MEDICAL HISTORY - Past Medical History Past Medical History: Yes Cardiovascular: Congestive heart failure, Hypertension Respiratory: Asthma, Shortness of breath Neuro: Migraines, Seizure disorder Endocrine/Autoimmune: HyPOthyroidism GI: None CHILDCARE DIRECTOR: None : Incontinence, Frequency, Kidney stones HEENT: None Psych: Depression, Anxiety, Bipolar disorder Musculoskeletal: Osteoarthritis, Fibromyalgia, Chronic back pain Derm: None - Past Surgical History Past Surgical History: Yes General: Other Ortho: Arthroscopic surgery /CHILDCARE DIRECTOR: section, Hysterectomy, Oophrectomy, Breast reduction HEENT: Tonsil/Adenoidectomy - Present Medications Home Medications: Ambulatory Orders Medication Instructions Recorded Confirmed Aspirin 81 mg PO DAILY 05/12/19 01/23/21 Butalbital/Aspirin/Caffeine 1 each PO PRN PRN 05/12/19 01/23/21 [Fiorinal 50-325-40 mg Capsule] Celecoxib [CeleBREX] 400 mg PO DAILY 05/12/19 01/23/21 Escitalopram Oxalate [Lexapro] 40 mg PO DAILY 05/12/19 01/23/21 Estrogens, Conjugated [Premarin] 1.25 mg PO DAILY 05/12/19 01/23/21 Levothyroxine [Synthroid] 300 mcg ORAL DAILY 05/12/19 01/23/21 Multivitamin [Daily Multiple 1 each PO DAILY 05/12/19 01/23/21 Vitamin] Stadol Ns 1 spray NS DAILY PRN 05/12/19 01/23/21 Tamsulosin HCl [Flomax] 0.4 mg PO DAILY 05/12/19 01/23/21 diphenhydrAMINE [Benadryl] 25 mg PO DAILY PM 05/12/19 01/23/21 Ondansetron HCl [Zofran] 4 mg PO Q6HR PRN 08/12/20 01/23/21 busPIRone [Buspar] 10 mg PO DAILY 08/12/20 01/23/21 tiZANidine [Zanaflex] 12 mg PO DAILY 08/12/20 01/23/21 Albuterol Sulfate [Proair Hfa 1 - 2 puffs INH Q4H PRN 01/23/21 01/23/21 Inhaler] B-Complex with Vitamin C [Super B 1 each PO DAILY 01/23/21 01/23/21 Complex-Vitamin C] Cefpodoxime Proxetil [Vantin] 100 mg PO Q12H #20 tablet 01/23/21 Cholecalciferol [Vitamin D3] 25 mcg PO DAILY 01/23/21 01/23/21 Divmercedes Taylor [Rola Taylor] 250 mg PO DAILY 01/23/21 01/23/21 LCosmo Gutierrez-Petrona Kaye-Petrona Perry-L. Rham 1 each PO TID 01/23/21 01/23/21 [Azo Complete Feminine Balance] Lactobacillus Combination No.4 1 each PO DAILY 01/23/21 01/23/21 [Probiotic] Loratadine [Claritin] 10 mg PO DAILY 01/23/21 01/23/21 Melatonin 20 mg PO DAILY PM 01/23/21 01/23/21 oxyCODONE/ACET 5/325 [Percocet 5 1 tab ORAL Q6HR PRN 01/23/21 01/23/21 mg/325 mg] - Allergies Allergies/Adverse Reactions: Allergies Allergy/AdvReac Type Severity Reaction Status Date / Time chlorpromazine HCl * Allergy Unknown Verified 01/23/21 16:28 [From Thorazine] droperidol [From Inapsine] Allergy Unknown Verified 01/23/21 16:28 ketorolac tromethamine * Allergy Unknown Verified 01/23/21 16:28 [From Toradol] meperidine HCl * Allergy Unknown Verified 01/23/21 16:28 [From Demerol] metoclopramide HCl * Allergy Unknown Verified 01/23/21 16:28 [From Reglan] morphine Allergy Unknown Verified 01/23/21 16:28 prochlorperazine edisylate * Allergy Unknown Verified 01/23/21 16:28 [From Compazine] prochlorperazine maleate * Allergy Unknown Verified 01/23/21 16:28 [From Compazine] tramadol Allergy Unknown Verified 01/23/21 16:28 [id number] Antimigraine Allergy Unknown Verified 01/23/21 16:28 Agents lorazepam [From Ativan] AdvReac Anxiety Verified 01/23/21 16:28 - Social History Does the pt smoke?: No Smoking Status: Never smoker Does the pt drink ETOH?: No Does the pt have substance abuse?: No - Immunizations Immunizations are current?: Yes Immunizations: TDAP current <10years, Other immun not current - POLST Patient has POLST: No POLST Status: Full Code (Daughter is her DURABLE POWER OF ASSISTANT GROCERY. She would like to be full code, but if there is significant cognitive deficits as a result of her illnesses, she wants us to let her go.) PD ED PE EXPANDED - General General: Alert, No acute distress, Other (Morbid obesity) - Cardiac Cardiac: Regular Rate, Radial strong equal, Cap refill < 2 sec - Respiratory Respiratory: Clear to ausultation bhargavi. No: Distress, Labored - Abdomen Abdomen: Tender to palpation (Mild right flank tenderness and right CVA tenderness. No guarding or rebound. Exam is limited by body habitus). No: Rebound, Guarding - Back Back: Normal exam - Derm Derm: Normal color, Warm and dry. No: Rash - Extremities Extremities: Normal. No: Deformity, Tenderness - Neuro Neuro: Alert and Oriented X 3, CNII-XII intact Results - Vitals Vitals: Vital Signs - 24 hr 01/23/21 16:28 Temperature 37.1 C Heart Rate 88 Respiratory 20 Rate Blood Pressure 202/101 H O2 Saturation 98 Oxygen O2 Source [Without Activity] Room air O2 Source Room air - Labs Labs: Laboratory Tests 01/23/21 01/23/21 01/23/21 16:43 16:43 17:00 WBC 9.5 RBC 4.75 Hgb 13.7 Hct 42.4 MCV 89.3 MCH 28.8 MCHC 32.3 RDW 14.0 Plt Count 278 MPV 9.3 Neut # (Auto) 5.5 Lymph # (Auto) 2.8 [place] # (Auto) 0.7 Eos # (Auto) 0.4 Baso # (Auto) 0.1 Absolute Nucleated RBC 0.00 Nucleated RBC % 0.0 Sodium 142 Potassium 3.8 Chloride 105 Carbon Dioxide 25 Anion Gap 12.0 BUN 19 Creatinine 0.8 Estimated GFR (MDRD) 73 L Glucose 101 H Calcium 9.3 Total Bilirubin 0.4 AST 17 ALT 19 Alkaline Phosphatase 61 Total Protein 6.5 L Albumin 3.8 Globulin 2.7 Albumin/Globulin Ratio 1.4 Lipase 25 Urine Color DARK YELLOW Urine Clarity CLOUDY Urine pH 5.5 Ur Specific [place] >=1.030 H Urine Protein TRACE Urine Glucose (UA) NEGATIVE Urine Ketones 15 H Urine Occult Blood NEGATIVE Urine Nitrite POSITIVE H Urine Bilirubin NEGATIVE Urine Urobilinogen 0.2 (NORMAL) Ur Leukocyte Esterase SMALL H Urine RBC 6-10 H Urine WBC >25 H Ur Squamous Epith Cells MANY Squamous H Urine Crystals 6-10 Calcium Oxalate Urine Bacteria Moderate H Ur Microscopic Review INDICATED Urine Culture Comments NOT INDICATED PD MEDICAL DECISION MAKING - ED course Complexity details: reviewed results, re-evaluated patient, d/w patient ED course: 60-year-old female presents emergency department for evaluation of 2 days of dysuria urgency and frequency as well as right flank pain. She does have a history of previous pyelonephritis as well as kidney stones. She is unable to reach her urologist or primary care doctor. On exam there is some mild right flank and CVA tenderness. She did report a fever of 101 at home. Today screening labs show no leukocytosis however her urine is consistent with infection. Given the flank pain and CVA tenderness she may be presenting with acute pyelonephritis. I am we discussed that in the setting of a history of stones we cannot rule out an infected stone however patient is hesitant to receive another CAT scan as she has had many in the past. She also feels well enough to be discharged home. Patient was given 1 g of ceftriaxone and will be started on Cefpodoxime. Her last urine culture grew pansensitive E. coli. We discussed that if her symptoms are not markedly better in 24 to 48 hours or if worsening before then she should return immediately to the ER and at that time consideration of imaging will be discussed Departure - Departure Disposition: 01 Home, Self Care Clinical Impression: Pyelonephritis Condition: Stable Record reviewed to determine appropriate education?: Yes Instructions: Pyelonephritis [facility] Follow-Up: ALMITA FELDER MD [Physician No Access] - Chino Seth MD [Primary Care Provider] - Prescriptions: Cefpodoxime Proxetil [Vantin] 100 mg PO Q12H #20 tablet Comments: Anitra you were seen in the emergency department today for dysuria urgency and frequency. You also have some right flank pain. Your urine is consistent with an infection. Your last infection showed a pansensitive E. coli. We discussed the possibility that you may need imaging as a kidney stone cannot be ruled out at this time however given the number of recent CT scans you have had you are electing to be discharged with antibiotics. However if your sym ptoms are not better over the next 24 to 48 hours, you have worsening pain fevers or uncontrolled vomiting please return immediately to the ER for a second evaluation. I have electronically transcribed your prescription to the [facility] in [place].
[2021-01-23 17:05] LABS: ALBUMIN 3.8 g/dL (3.2-5.5); ALBUMIN/GLOBULIN RATIO 1.4 (1.0-2.2); BILIRUBIN,TOTAL 0.4 mg/dL (0.2-1.0); CALCIUM 9.3 mg/dL (8.5-10.3); CREATININE 0.8 mg/dL (0.4-1.0); POTASSIUM 3.8 mmol/L (3.5-5.0); TOTAL PROTEIN 6.5 g/dL (6.7-8.2)
[2021-01-23 17:07] LABS: BILIRUBIN,URINE NEGATIVE (NEGATIVE); GLUCOSE, URINE (UA) NEGATIVE (NEGATIVE); KETONES,URINE (UA) 15 mg/dL (NEGATIVE); LEUKOCYTE ESTERASE, URINE SMALL (NEGATIVE); NITRITE,URINE POSITIVE (NEGATIVE); OCCULT BLOOD,URINE NEGATIVE (NEGATIVE); PH,URINE 5.5 PH (5.0-7.5); PROTEIN,URINE TRACE mg/dL (NEGATIVE); UROBILINOGEN,URINE 0.2 (NORMAL) E.U./dL (NORMAL)
[2021-01-23 17:08] LABS: CLARITY,URINE CLOUDY (CLEAR)
[2021-01-23 17:16] LABS: BACTERIA,URINE Moderate /HPF (None Seen); CRYSTALS,URINE 6-10 Calcium Oxalate /LPF; SQUAMOUS EPITHELIAL CELL,UR MANY Squamous (<= Few); WBC,URINE >25 /HPF (0-5)
[2021-01-23] MEDS ORDERED: LIDOCAINE 1% 2 ML VIAL MC ONE (17:35)
[2021-01-23] MEDS ORDERED: cefTRIAXone 1 GM VIAL IM STA (17:35)
[2021-01-23 17:59] VITALS: BP 159/119
== END 2021-01-23 18:08 | disposition home or self-care (01) ==
LOC: EDUNIT# → ED 16:16
DX: N12 Tubulo-interstitial nephritis, not specified as acute or chronic (principal); Z87.442 Personal history of urinary calculi; I10 Essential (primary) hypertension; E66.01 Morbid (severe) obesity due to excess calories; Z68.43 Body mass index [BMI] 50.0-59.9, adult; Z79.82 Long term (current) use of aspirin
CPT/HCPCS: 36415; 80053; 81001; 83690; 85025; 96372; 99283; 99284; J1170; Q0162; 81003; 87086

== ENCOUNTER 2021-02-13 16:49 | Outpatient (CLI) | payer MEDICARE, MEDICAID | END 2021-02-13 16:50 | disposition critical access hospital (66) | LOC: EMS 16:49 | DX: R10.31 Right lower quadrant pain (principal); M54.50 Low back pain, unspecified; R11.2 Nausea with vomiting, unspecified | CPT/HCPCS: A0425; A0429 ==

== ENCOUNTER 2021-02-13 17:17 | Emergency (ER) | payer MEDICARE, MEDICAID ==
--- NOTE | 2021-02-13 17:29 | ED Physician Documentation ---
History of Present Illness - Stated complaint Stated Complaint: R FLANK PX/VOMITING - Chief complaint Chief Complaint: Abd Pain - Additonal information Additional information: 60-year-old female presents emergency department for evaluation of worsening dysuria urgency and frequency. She is endorsing right-sided back pain. She has had some nausea and vomiting. Patient does have a history of known nephrolithiasis as well as previous pyelonephritis. She was seen by me on 01/23/2021 for similar. At that time her urine was suggestive of infection. No culture was obtained however patient was started on Cefpodoxime. She completed the full course of Cefpodoxime and felt that her symptoms had fully abated until approximately 4 to 5 days ago. She has been attempting to get in touch with her urologist as well is her primary care provider but due to the holiday weekend she has been unable to obtain follow-up. Review of Systems Constitutional: reports: Fever Eyes: reports: Reviewed and negative Ears: reports: Reviewed and negative Throat: reports: Reviewed and negative Cardiac: reports: Reviewed and negative Respiratory: reports: Reviewed and negative GI: reports: Abdominal Pain, Nausea, Vomiting : reports: Dysuria, Frequency, Hesitancy Skin: reports: Reviewed and negative Musculoskeletal: reports: Reviewed and negative PD PAST MEDICAL HISTORY - Past Medical History Cardiovascular: Congestive heart failure, Hypertension Respiratory: Asthma, Shortness of breath Neuro: Migraines, Seizure disorder Endocrine/Autoimmune: HyPOthyroidism GI: None 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 WAGON HOSTESS: None : Incontinence, Frequency, Kidney stones HEENT: None Psych: Depression, Anxiety, Bipolar disorder Musculoskeletal: Osteoarthritis, Fibromyalgia, Chronic back pain Derm: None - Past Surgical History Past Surgical History: Yes General: Other Ortho: Arthroscopic surgery /WELCOME WAGON HOSTESS: section, Hysterectomy, Oophrectomy, Breast reduction HEENT: Tonsil/Adenoidectomy - Present Medications Home Medications: Ambulatory Orders Medication Instructions Recorded Confirmed Aspirin 81 mg PO DAILY 05/12/19 01/23/21 Butalbital/Aspirin/Caffeine 1 each PO PRN PRN 05/12/19 01/23/21 [Fiorinal 50-325-40 mg Capsule] Celecoxib [CeleBREX] 400 mg PO DAILY 05/12/19 01/23/21 Escitalopram Oxalate [Lexapro] 40 mg PO DAILY 05/12/19 01/23/21 Estrogens, Conjugated [Premarin] 1.25 mg PO DAILY 05/12/19 01/23/21 Levothyroxine [Synthroid] 300 mcg ORAL DAILY 05/12/19 01/23/21 Multivitamin [Daily Multiple 1 each PO DAILY 05/12/19 01/23/21 Vitamin] Stadol Ns 1 spray NS DAILY PRN 05/12/19 01/23/21 Tamsulosin HCl [Flomax] 0.4 mg PO DAILY 05/12/19 01/23/21 diphenhydrAMINE [Benadryl] 25 mg PO DAILY PM 05/12/19 01/23/21 Ondansetron HCl [Zofran] 4 mg PO Q6HR PRN 08/12/20 01/23/21 busPIRone [Buspar] 10 mg PO DAILY 08/12/20 01/23/21 tiZANidine [Zanaflex] 12 mg PO DAILY 08/12/20 01/23/21 Albuterol Sulfate [Proair Hfa 1 - 2 puffs INH Q4H PRN 01/23/21 01/23/21 Inhaler] B-Complex with Vitamin C [Super B 1 each PO DAILY 01/23/21 01/23/21 Complex-Vitamin C] Cefpodoxime Proxetil [Vantin] 100 mg PO Q12H #20 tablet 01/23/21 Cholecalciferol [Vitamin D3] 25 mcg PO DAILY 01/23/21 01/23/21 Divalproex [Depakokandace Taylor] 250 mg PO DAILY 01/23/21 01/23/21 Petrona Loomis Rham 1 each PO TID 01/23/21 01/23/21 [Azo Complete Feminine Balance] Lactobacillus Combination No.4 1 each PO DAILY 01/23/21 01/23/21 [Probiotic] Loratadine [Claritin] 10 mg PO DAILY 01/23/21 01/23/21 Melatonin 20 mg PO DAILY PM 01/23/21 01/23/21 oxyCODONE/ACET 5/325 [Percocet 5 1 tab ORAL Q6HR PRN 01/23/21 01/23/21 mg/325 mg] - Allergies Allergies/Adverse Reactions: Allergies Allergy/AdvReac Type Severity Reaction Status Date / Time chlorpromazine HCl * Allergy Unknown Verified 02/13/21 17:23 [From Thorazine] droperidol [From Inapsine] Allergy Unknown Verified 02/13/21 17:23 ketorolac tromethamine * Allergy Unknown Verified 02/13/21 17:23 [From Toradol] meperidine HCl * Allergy Unknown Verified 02/13/21 17:23 [From Demerol] metoclopramide HCl * Allergy Unknown Verified 02/13/21 17:23 [From Reglan] morphine Allergy Unknown Verified 02/13/21 17:23 prochlorperazine edisylate * Allergy Unknown Verified 02/13/21 17:23 [From Compazine] prochlorperazine maleate * Allergy Unknown Verified 02/13/21 17:23 [From Compazine] tramadol Allergy Unknown Verified 02/13/21 17:23 [id number] Antimigraine Allergy Unknown Verified 02/13/21 17:23 Agents lorazepam [From Ativan] AdvReac Anxiety Verified 02/13/21 17:23 - Social History Does the pt smoke?: No Smoking Status: Never smoker Does the pt drink ETOH?: No Does the pt have substance abuse?: No - Immunizations Immunizations are current?: Yes Immunizations: TDAP current <10years, Other immun not current - POLST Patient has POLST: No POLST Status: Full Code (Daughter is her DURABLE POWER OF TILE SETTER SUPERVISOR. She would like to be full code, but if there is significant cognitive deficits as a result of her illnesses, she wants us to let her go.) PD ED PE EXPANDED - General General: Alert, No acute distress - Cardiac Cardiac: Regular Rate, Radial strong equal, Cap refill < 2 sec - Respiratory Respiratory: Clear to ausultation bhargavi. No: Distress - Abdomen Abdomen: Normal Bowel sounds, Tender to palpation (Tenderness to the right lower quadrant and right flank. No guarding or rebound. However abdominal exam is somewhat limited secondary to body habitus) - Derm Derm: Normal color, Warm and dry - Extremities Extremities: Normal. No: Deformity, Tenderness - Neuro Neuro: Alert and Oriented X 3, CNII-XII intact - GCS Eye Opening: Spontaneous Motor: Obeys Commands Verbal: Oriented Total: 15 Results - Vitals Vitals: Vital Signs - 24 hr 02/13/21 02/13/21 17:23 19:30 Temperature 36.7 C Heart Rate 103 H 86 Respiratory 18 16 Rate Blood Pressure 168/118 H 167/99 H O2 Saturation 98 98 Oxygen O2 Source [Without Activity] Room air O2 Source Room air - Labs Labs: Laboratory Tests 02/13/21 02/13/21 02/13/21 17:30 18:10 18:10 WBC 11.0 H RBC 4.90 Hgb 14.4 Hct 44.7 MCV 91.2 MCH 29.4 MCHC 32.2 RDW 14.2 Plt Count 262 MPV 9.6 Neut # (Auto) 7.4 H Lymph # (Auto) 2.4 [place] # (Auto) 0.7 Eos # (Auto) 0.4 Baso # (Auto) 0.1 Absolute Nucleated RBC 0.00 Nucleated RBC % 0.0 Sodium 138 Potassium 3.6 Chloride 103 Carbon Dioxide 20 L Anion Gap 15.0 H BUN 23 H Creatinine 0.8 Estimated GFR (MDRD) 73 L Glucose 127 H Calcium 9.0 Total Bilirubin 0.6 AST 22 ALT 20 Alkaline Phosphatase 72 Total Protein 6.7 Albumin 3.8 Globulin 2.9 Albumin/Globulin Ratio 1.3 Lipase 26 Urine Color YELLOW Urine Clarity HAZY Urine pH 6.0 Ur Specific [place] 1.020 Urine Protein NEGATIVE Urine Glucose (UA) NEGATIVE Urine Ketones TRACE Urine Occult Blood NEGATIVE Urine Nitrite POSITIVE H Urine Bilirubin NEGATIVE Urine Urobilinogen 0.2 (NORMAL) Ur Leukocyte Esterase NEGATIVE Urine RBC 0-5 Urine WBC 4-5 Ur Squamous Epith Cells MANY Squamous H Urine Crystals 11-25 Ca Oxalate Urine Bacteria Moderate H Ur Microscopic Review INDICATED Urine Culture Comments NOT INDICATED - Rads (name of study) CT abd Radiology: Final report received (No acute abnormalities in abdomen or pelvis. Mild hepatomegaly. Normal appendix. Severe degenerative disc and facet disease lumbar spine) PD MEDICAL DECISION MAKING - ED course Complexity details: reviewed results, re-evaluated patient, d/w patient ED course: 60-year-old female presents the emergency department for evaluation of urinary urgency and frequency as well as lower abdominal and back pain. Multiple visits for similar. Does have a history of recurrent UTI as well as nephrolithiasis. I saw her approximately 3 weeks ago for similar and diagnosed her with a UTI and she was discharged with Cefpodoxime. She reported her symptoms improved until recently when they began worsening again. She reports difficulty following up wi th her urologist. Screening labs today are unremarkable. The urine did not show signs that were consistent with infection. A CT of the abdomen again does not show nephrolithiasis findings of pyelonephritis. Noted to have severe degenerative disc disease in the spine which patient was notified of and is already aware of. She did receive multiple doses of Dilaudid and Zofran here in the emergency d epartment. She did request a third dose of each but I declined to give and there is no acute findings on the CT scan and she was comfortable with my choice. She is encouraged close follow-up with her PCP and urologist. Departure - Departure Disposition: 01 Home, Self Care Clinical Impression: Urinary frequency Condition: Stable Record reviewed to determine appropriate education?: Yes Comments: Mee you were seen in the ER today for lower abdominal pain as well as recurrent urinary frequency and urgency. Your screening labs today are essentially normal. Your urine is not consistent with infection. A CAT scan of your abdomen did not show any kidney stones, findings of pyelonephritis or acute abdominal emergencies. We do note that you have degenerative disc disease of your lumbar spine which you are already aware of. The cause of your urinary urgency and frequency is not clear though it could be overactive bladder versus inflammatory bladder syndrome. Continue close follow- up with your urologist for further evaluation.
[2021-02-13] MEDS: HYDROmorphone 1 MG/ML CARPUJECT IVP STA ×2 (17:51→19:00)
[2021-02-13] MEDS: ONDANSETRON 4 MG/2 ML VIAL IVP STA ×2 (17:51→19:00)
[2021-02-13] MEDS: SODIUM CHLORIDE 0.9% 1,000 ML IV STA (17:52)
[2021-02-13 17:59] LABS: BILIRUBIN,URINE NEGATIVE (NEGATIVE); GLUCOSE, URINE (UA) NEGATIVE (NEGATIVE); KETONES,URINE (UA) TRACE mg/dL (NEGATIVE); LEUKOCYTE ESTERASE, URINE NEGATIVE (NEGATIVE); NITRITE,URINE POSITIVE (NEGATIVE); OCCULT BLOOD,URINE NEGATIVE (NEGATIVE); PROTEIN,URINE NEGATIVE (NEGATIVE); UROBILINOGEN,URINE 0.2 (NORMAL) E.U./dL (NORMAL)
[2021-02-13 18:03] LABS: CLARITY,URINE HAZY (CLEAR)
[2021-02-13 18:06] LABS: BACTERIA,URINE Moderate /HPF (None Seen); RBC,URINE 0-5 /HPF (0-5); SQUAMOUS EPITHELIAL CELL,UR MANY Squamous (<= Few)
[2021-02-13 18:07] LABS: CRYSTALS,URINE 11-25 Ca Oxalate /LPF
[2021-02-13 18:14] LABS: BASOPHILS # (AUTO) 0.1 10^3/uL (0.0-0.1); BASOPHILS % (AUTO) 0.6 %; EOSINOPHILS # (AUTO) 0.4 10^3/uL (0.0-0.7); EOSINOPHILS % (AUTO) 3.6 %; HCT - HEMATOCRIT 44.7 % (37.0-47.0); HGB - HEMOGLOBIN 14.4 g/dL (12.0-16.0); LYMPHOCYTES # (AUTO) 2.4 10^3/uL (1.5-3.5); LYMPHOCYTES % (AUTO) 21.4 %; MEAN CORPUSCULAR HEMOGLOBIN 29.4 pg (27.0-31.0); MEAN CORPUSCULAR HGB CONC 32.2 g/dL (32.0-36.0); MEAN CORPUSCULAR VOLUME 91.2 fL (81.0-99.0); MEAN PLATELET VOLUME 9.6 fL (7.9-10.8); MONOCYTES # (AUTO) 0.7 10^3/uL (0.0-1.0); MONOCYTES % (AUTO) 6.5 %; NEUTROPHILS # (AUTO) 7.4 10^3/uL (1.5-6.6); NEUTROPHILS % (AUTO) 67.3 %; PLT - PLATELET COUNT 262 10^3/uL (130-450); RED CELL DISTRIBUTION WIDTH 14.2 % (12.0-15.0)
[2021-02-13 18:48] LABS: ALBUMIN 3.8 g/dL (3.2-5.5); ALBUMIN/GLOBULIN RATIO 1.3 (1.0-2.2); BILIRUBIN,TOTAL 0.6 mg/dL (0.2-1.0); CREATININE 0.8 mg/dL (0.4-1.0); POTASSIUM 3.6 mmol/L (3.5-5.0); TOTAL PROTEIN 6.7 g/dL (6.7-8.2)
[2021-02-13] MEDS ORDERED: IOVERSOL 320 100 ML VIAL IVP ONE (18:48)
[2021-02-13] MEDS: IOVERSOL 320 100 ML VIAL IVP ONE (19:25)
[2021-02-13 19:48] VITALS: BP 167/99
--- NOTE | 2021-02-13 20:06 | CT Report ---
PROCEDURE: Abdomen/Pelvis W INDICATIONS: right flank pain CONTRAST: IV CONTRAST: Optiray 320 ml: 100 PO CONTRAST: *NO PO CONTRAST TECHNIQUE: After the administration of IV contrast, 5 mm thick sections acquired from the diaphragms to the symp hysis. 5 mm thick coronal and sagittal reformats were acquired. For radiation dose reduction, the f ollowing was used: automated exposure control, adjustment of mA and/or kV according to patient size. COMPARISON: CT abdomen and pelvis without contrast, CT abdomen and pelvis with contrast, 10/31/2020 a nd 12/05/2020. FINDINGS: Image quality: Excellent. ABDOMEN: Lung bases: Lung bases are clear. Heart size is normal. Small hiatal hernia. Solid organs: Liver is mildly enlarged. Spleen is normal in size and enhancement. Gallbladder is no rmal. Biliary system is non dilated. Pancreas enhances normally. No adrenal nodules. Kidneys demo nstrate normal size and enhancement, without hydronephrosis. Peritoneum and bowel: Bowel loops demonstrate normal wall thickness and caliber. Appendix is normal . No free fluid or air. Nodes and vessels: No retroperitoneal or mesenteric adenopathy by size criteria. Aorta and inferior vena cava are normal in size. Miscellaneous: No ventral hernias. PELVIS: Genitourinary: Bladder is contracted. Miscellaneous: No inguinal hernias or adenopathy. Bones: No suspicious bony lesions. No vertebral body compression fractures. Severe degenerative di sc and facet disease in lumbar spine. IMPRESSION: 1. No acute abnormalities in abdomen or pelvis. 2. Mild hepatomegaly. 3. Normal appendix. 4. Severe degenerative disc and facet disease in lumbar spine. Reviewed by: Hanny Rivera MD on 02/13/2021 8:05 PM PDT Approved by: Hanny Rivera MD on 02/13/2021 8:05 PM PDT Station ID: [id number]
== END 2021-02-13 20:32 | disposition home or self-care (01) ==
LOC: EDUNIT# → ED 17:17
DX: R39.15 Urgency of urination (principal); R35.0 Frequency of micturition; R10.30 Lower abdominal pain, unspecified; M47.816 Spondylosis without myelopathy or radiculopathy, lumbar region; M51.36 Other intervertebral disc degeneration, lumbar region
CPT/HCPCS: 36415; 74177; 80053; 81001; 83690; 85025; 96374; 96376; 99283; 99284; J1170; Q9967; 81003; 87086

== ENCOUNTER 2021-04-08 08:42 | Emergency (ER) | payer MEDICARE, MEDICAID ==
[2021-04-08 09:08] VITALS: BP 169/100
[2021-04-08] MEDS ORDERED: HYDROmorphone 1 MG/ML CARPUJECT IVP STA ×2 (09:13→10:26)
[2021-04-08] MEDS ORDERED: ONDANSETRON 4 MG/2 ML VIAL IVP STA (09:13)
[2021-04-08] MEDS ORDERED: DEXAMETHASONE 10 MG/ML VIAL IVP STA (09:13)
[2021-04-08] MEDS ORDERED: SODIUM CHLORIDE 0.9% 1,000 ML IV STA (09:13)
--- NOTE | 2021-04-08 09:43 | ED Physician Documentation ---
PD HPI HEADACHE - Stated complaint Stated Complaint: HEADACHE - Chief complaint Chief Complaint: Neuro - History obtained from History obtained from: Patient - History of Present Illness Timing - onset: Yesterday Timing - onset during: Rest Timing - duration: Days (1) Timing - details: Gradual onset, Still present Location: Front, Right Quality: Throbbing Associated symptoms: Nausea. No: Fever, Stiff neck, Vomiting, Weakness, Numbness, Syncope, Seizure, Eye pain, Vision changes Improved by: Rest, Dark room, Quiet, Meds Worsened by: Light, Noise, Moving Contributing factors: No: Anticoagulated Similar symptoms before: Diagnosis (migraine) Recently seen: Not recently seen - Additional information Additional information: 60-year-old female with a history of migraine headaches has developed a migraine typical for her on the right side. She has an aura prior to the onset of these headaches with a smell of roses. She had this yesterday afternoon and she has not been able to control her headache with her usual home medications. She has had to have migraine rescue previously in the emergency department and she has a number of medication allergies including Compazine Inapsine and Toradol. She has not had any vomiting with this she has had some nausea. Review of Systems Constitutional: denies: Fever Eyes: reports: Photophobia. denies: Decreased vision Ears: denies: Ear pain Nose: denies: Rhinorrhea / runny nose, Congestion Throat: denies: Sore throat Cardiac: denies: Chest pain / pressure Respiratory: denies: Dyspnea, Cough GI: reports: Nausea. 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 : Incontinence, Frequency, Kidney stones HEENT: None Psych: Depression, Anxiety, Bipolar disorder Musculoskeletal: Osteoarthritis, Fibromyalgia, Chronic back pain Derm: None - Past Surgical History Past Surgical History: Yes General: Other Ortho: Arthroscopic surgery /ELECTRICAL ENGINEER MEP: section, Hysterectomy, Oophrectomy, Breast reduction HEENT: Tonsil/Adenoidectomy - Present Medications Home Medications: Ambulatory Orders Medication Instructions Recorded Confirmed Aspirin 81 mg PO DAILY 05/12/19 01/23/21 Butalbital/Aspirin/Caffeine 1 each PO PRN PRN 05/12/19 01/23/21 [Fiorinal 50-325-40 mg Capsule] Celecoxib [CeleBREX] 400 mg PO DAILY 05/12/19 01/23/21 Escitalopram Oxalate [Lexapro] 40 mg PO DAILY 05/12/19 01/23/21 Estrogens, Conjugated [Premarin] 1.25 mg PO DAILY 05/12/19 01/23/21 Levothyroxine [Synthroid] 300 mcg ORAL DAILY 05/12/19 01/23/21 Multivitamin [Daily Multiple 1 each PO DAILY 05/12/19 01/23/21 Vitamin] Stadol Ns 1 spray NS DAILY PRN 05/12/19 01/23/21 Tamsulosin HCl [Flomax] 0.4 mg PO DAILY 05/12/19 01/23/21 diphenhydrAMINE [Benadryl] 25 mg PO DAILY PM 05/12/19 01/23/21 Ondansetron HCl [Zofran] 4 mg PO Q6HR PRN 08/12/20 01/23/21 busPIRone [Buspar] 10 mg PO DAILY 08/12/20 01/23/21 tiZANidine [Zanaflex] 12 mg PO DAILY 08/12/20 01/23/21 Albuterol Sulfate [Proair Hfa 1 - 2 puffs INH Q4H PRN 01/23/21 01/23/21 Inhaler] B-Complex with Vitamin C [Super B 1 each PO DAILY 01/23/21 01/23/21 Complex-Vitamin C] Cefpodoxime Proxetil [Vantin] 100 mg PO Q12H #20 tablet 01/23/21 Cholecalciferol [Vitamin D3] 25 mcg PO DAILY 01/23/21 01/23/21 Divalproex [Depjuan Taylor] 250 mg PO DAILY 01/23/21 01/23/21 Petrona Kaye-Petrona Perry-Lisseth. Rham 1 each PO TID 01/23/21 01/23/21 [Azo Complete Feminine Balance] Lactobacillus Combination No.4 1 each PO DAILY 01/23/21 01/23/21 [Probiotic] Loratadine [Claritin] 10 mg PO DAILY 01/23/21 01/23/21 Melatonin 20 mg PO DAILY PM 01/23/21 01/23/21 oxyCODONE/ACET 5/325 [Percocet 5 1 tab ORAL Q6HR PRN 01/23/21 01/23/21 mg/325 mg] - Allergies Allergies/Adverse Reactions: Allergies Allergy/AdvReac Type Severity Reaction Status Date / Time chlorpromazine HCl * Allergy Unknown Verified 04/08/21 08:52 [From Thorazine] droperidol [From Inapsine] Allergy Unknown Verified 04/08/21 08:52 ketorolac tromethamine * Allergy Unknown Verified 04/08/21 08:52 [From Toradol] meperidine HCl * Allergy Unknown Verified 04/08/21 08:52 [From Demerol] metoclopramide HCl * Allergy Unknown Verified 04/08/21 08:52 [From Reglan] morphine Allergy Unknown Verified 04/08/21 08:52 prochlorperazine edisylate * Allergy Unknown Verified 04/08/21 08:52 [From Compazine] prochlorperazine maleate * Allergy Unknown Verified 04/08/21 08:52 [From Compazine] tramadol Allergy Unknown Verified 04/08/21 08:52 [id number] Antimigraine Allergy Unknown Verified 04/08/21 08:52 Agents lorazepam [From Ativan] AdvReac Anxiety Verified 04/08/21 08:52 - Social History Does the pt smoke?: No Smoking Status: Never smoker Does the pt drink ETOH?: No Does the pt have substance abuse?: No - Immunizations Immunizations are current?: Yes Immunizations: TDAP current <10years, Other immun not current - POLST Patient has POLST: No POLST Status: Full Code (Daughter is her DURABLE POWER OF OPERATOR ASSISTANT I CEMENTING. She would like to be full code, but if there is significant cognitive deficits as a result of her illnesses, she wants us to let her go.) PD ED PE NORMAL - Vitals Vital signs reviewed: Yes (hypertensive ) - General General: Alert and oriented X 3, No acute distress, Well developed/nourished - HEENT HEENT: Atraumatic, PERRL, EOMI, Moist mucous membranes - Neck Neck: Supple, no meningeal sign, No bony TTP - Cardiac Cardiac: RRR, No murmur - Respiratory Respiratory: No respiratory distress, Clear bilaterally - Abdomen Abdomen: Soft, Non tender - Back Back: No CVA TTP, No spinal TTP - Derm Derm: Normal color, Warm and dry, No rash - Extremities Extremities: No deformity, No edema - Neuro Neuro: Alert and oriented X 3, distributor sales consultant 2-12 intact, No motor deficit, No sensory deficit, Normal speech Eye Opening: Spontaneous Motor: Obeys Commands Verbal: Oriented GCS Score: 15 - Psych Psych: Normal mood, Normal affect Results - Vitals Vitals: Vital Signs - 24 hr 04/08/21 04/08/21 08:47 09:08 Temperature 36.8 C Heart Rate 78 Respiratory 18 Rate Blood Pressure 136/94 H 169/100 H O2 Saturation 97 92 Oxygen O2 Source [Without Activity] Room air O2 Source Room air PD MEDICAL DECISION MAKING - ED course Complexity details: considered differential, d/w patient ED course: 60-year-old female with a history of migraine headaches and multiple allergies indicates that her usual migraine rescue is 2 mg of Dilaudid and Zofran. We have given the patient in addition to that a liter of saline and 10 mg dexamethasone. Departure - Departure Disposition: 01 Home, Self Care Clinical Impression: Migraine Qualifiers: Migraine type: with aura Status migrainosus presence: without status migrainosus Intractability: not intractable Qualified Code(s): G43.109 - Migraine with aura, not intractable, without status migrainosus Condition: Stable Instructions: ED Headache Migraine Follow-Up: Chino Seth MD [Primary Care Provider] -
== END 2021-04-08 10:50 | disposition home or self-care (01) ==
LOC: ED 08:42
DX: G43.109 Migraine with aura, not intractable, without status migrainosus (principal); I10 Essential (primary) hypertension
CPT/HCPCS: 96374; 96375; 99283; J1170

== ENCOUNTER 2021-06-25 17:35 | Outpatient (CLI) | payer MEDICARE, MEDICAID | END 2021-06-25 17:36 | disposition critical access hospital (66) | LOC: EMS 17:35 | DX: M54.89 Other dorsalgia (principal); R11.10 Vomiting, unspecified; R31.9 Hematuria, unspecified | CPT/HCPCS: A0425; A0429 ==

== ENCOUNTER 2021-06-25 18:05 | Emergency (ER) | payer MEDICARE, MEDICAID ==
[2021-06-25] MEDS ORDERED: HYDROmorphone 1 MG/ML CARPUJECT IVP STA ×2 (18:25→19:21)
[2021-06-25] MEDS ORDERED: ONDANSETRON 4 MG/2 ML VIAL IVP STA ×2 (18:25→19:21)
--- NOTE | 2021-06-25 18:27 | ED Physician Documentation ---
History of Present Illness - Stated complaint Stated Complaint: FLANK PX - Chief complaint Chief Complaint: Abd Pain - Additonal information Additional information: 60-year-old female presents emergency department for evaluation of 3 days right flank pain, hematuria and reported bladder spasms. She does have a history of renal colic in the past as well as a pyelonephritis. Denies any fever,vomiting. Has been seen multiple times in the past for similar. Review of Systems Constitutional: denies: Fever, Chills Cardiac: denies: Chest pain / pressure, Palpitations Respiratory: denies: Dyspnea, Cough GI: reports: Abdominal Pain, Nausea. denies: Vomiting : reports: Frequency, Hematuria Skin: reports: Reviewed and negative Musculoskeletal: reports: Reviewed and negative PD PAST MEDICAL HISTORY - Past Medical History Cardiovascular: Congestive heart failure, Hypertension Respiratory: Asthma, Shortness of breath Neuro: Migraines, Seizure disorder Endocrine/Autoimmune: HyPOthyroidism GI: None HYPERTRICHOLOGIST: None : Incontinence, Frequency, Kidney stones HEENT: None Psych: Depression, Anxiety, Bipolar disorder Musculoskeletal: Osteoarthritis, Fibromyalgia, Chronic back pain Derm: None - Past Surgical History Past Surgical History: Yes General: Other Ortho: Arthroscopic surgery /HYPERTRICHOLOGIST: section, Hysterectomy, Oophrectomy, Breast reduction HEENT: Tonsil/Adenoidectomy - Present Medications Home Medications: Ambulatory Orders Medication Instructions Recorded Confirmed Aspirin 81 mg PO DAILY 05/12/19 01/23/21 Butalbital/Aspirin/Caffeine 1 each PO PRN PRN 05/12/19 01/23/21 [Fiorinal 50-325-40 mg Capsule] Celecoxib [CeleBREX] 400 mg PO DAILY 05/12/19 01/23/21 Escitalopram Oxalate [Lexapro] 40 mg PO DAILY 05/12/19 01/23/21 Estrogens, Conjugated [Premarin] 1.25 mg PO DAILY 05/12/19 01/23/21 Levothyroxine [Synthroid] 300 mcg ORAL DAILY 05/12/19 01/23/21 Multivitamin [Daily Multiple 1 each PO DAILY 05/12/19 01/23/21 Vitamin] Stadol Ns 1 spray NS DAILY PRN 05/12/19 01/23/21 Tamsulosin HCl [Flomax] 0.4 mg PO DAILY 05/12/19 01/23/21 diphenhydrAMINE [Benadryl] 25 mg PO DAILY PM 05/12/19 01/23/21 busPIRone [Buspar] 10 mg PO DAILY 08/12/20 01/23/21 ondansetron HCL [Zofran] 4 mg PO Q6HR PRN 08/12/20 01/23/21 tiZANidine [Zanaflex] 12 mg PO DAILY 08/12/20 01/23/21 Albuterol Sulfate [Proair Hfa 1 - 2 puffs INH Q4H PRN 01/23/21 01/23/21 Inhaler] B-Complex with Vitamin C [Super B 1 each PO DAILY 01/23/21 01/23/21 Complex-Vitamin C] Cefpodoxime Proxetil [Vantin] 100 mg PO Q12H #20 tablet 01/23/21 Cholecalciferol [Vitamin D3] 25 mcg PO DAILY 01/23/21 01/23/21 Divalproex [Depakokandace Dr] 250 mg PO DAILY 01/23/21 01/23/21 Petrona Fan 1 each PO TID 01/23/21 01/23/21 [Azo Complete Feminine Balance] Lactobacillus Combination No.4 1 each PO DAILY 01/23/21 01/23/21 [Probiotic] Loratadine [Claritin] 10 mg PO DAILY 01/23/21 01/23/21 Melatonin 20 mg PO DAILY PM 01/23/21 01/23/21 oxyCODONE/ACET 5/325 [Percocet 5 1 tab ORAL Q6HR PRN 01/23/21 01/23/21 mg/325 mg] Cefpodoxime Proxetil [Vantin] 100 mg PO Q12H #14 tablet 06/25/21 - Allergies Allergies/Adverse Reactions: Allergies Allergy/AdvReac Type Severity Reaction Status Date / Time chlorpromazine HCl * Allergy Unknown Verified 06/25/21 18:15 [From Thorazine] droperidol [From Inapsine] Allergy Unknown Verified 06/25/21 18:15 ketorolac tromethamine * Allergy Unknown Verified 06/25/21 18:15 [From Toradol] meperidine HCl * Allergy Unknown Verified 06/25/21 18:15 [From Demerol] metoclopramide HCl * Allergy Unknown Verified 06/25/21 18:15 [From Reglan] morphine Allergy Unknown Verified 06/25/21 18:15 prochlorperazine edisylate * Allergy Unknown Verified 06/25/21 18:15 [From Compazine] prochlorperazine maleate * Allergy Unknown Verified 06/25/21 18:15 [From Compazine] tramadol Allergy Unknown Verified 06/25/21 18:15 [id number] Antimigraine Allergy Unknown Verified 06/25/21 18:15 Agents lorazepam [From Ativan] AdvReac Anxiety Verified 06/25/21 18:15 - Social History Does the pt smoke?: No Smoking Status: Never smoker Does the pt drink ETOH?: No Does the pt have substance abuse?: No - Immunizations Immunizations are current?: Yes Immunizations: TDAP current <10years, Other immun not current - POLST Patient has POLST: No POLST Status: Full Code (Daughter is her DURABLE POWER OF DIRECTOR OF FINANCIAL PLANNING. She would like to be full code, but if there is significant cognitive deficits as a result of her illnesses, she wants us to let her go.) PD ED PE NORMAL - General General: Alert and oriented X 3, No acute distress, Well developed/nourished, Other (Morbidly obese) - HEENT HEENT: Atraumatic, Moist mucous membranes - Neck Neck: Supple, no meningeal sign, No adenopathy - Cardiac Cardiac: RRR, No murmur - Respiratory Respiratory: No respiratory distress, Clear bilaterally - Abdomen Abdomen: Normal bowel sounds, Soft. No: Non tender (Tenderness to percussion over the right flank and CVA area. Exam is somewhat limited by body habitus/morbid obesity.) - Back Back: No CVA TTP, No spinal TTP - Derm Derm: Normal color, No rash - Extremities Extremities: No deformity, No tenderness to palpate, Normal ROM s pain, No edema - Neuro Neuro: Alert and oriented X 3, straddle bug operator 2-12 intact Eye Opening: Spontaneous Motor: Obeys Commands Verbal: Oriented GCS Score: 15 - Psych Psych: Normal mood Results - Vitals Vitals: Vital Signs - 24 hr 06/25/21 06/25/21 18:15 18:18 Temperature 37.2 C 37.4 C Heart Rate 88 88 Respiratory 16 13 Rate Blood Pressure 158/95 H 158/95 H O2 Saturation 99 99 Oxygen O2 Source [Without Activity] Room air O2 Source Room air - Labs Labs: Laboratory Tests 06/25/21 06/25/21 06/25/21 18:15 18:15 18:36 WBC 10.9 H RBC 5.23 Hgb 15.3 Hct 46.1 MCV 88.1 MCH 29.3 MCHC 33.2 RDW 13.3 Plt Count 300 MPV 9.9 Neut # (Auto) 7.0 H Lymph # (Auto) 2.7 [place] # (Auto) 0.8 Eos # (Auto) 0.3 Baso # (Auto) 0.1 Absolute Nucleated RBC 0.00 Nucleated RBC % 0.0 Sodium 139 Potassium 4.0 Chloride 104 Carbon Dioxide 25 Anion Gap 10.0 BUN 29 H Creatinine 0.8 Estimated GFR (MDRD) 73 L Glucose 97 Calcium 9.2 Total Bilirubin 0.3 AST 22 ALT 32 Alkaline Phosphatase 69 Total Protein 7.0 Albumin 4.1 Globulin 2.9 Albumin/Globulin Ratio 1.4 Lipase 26 Urine Color YELLOW Urine Clarity CLOUDY Urine pH 5.5 Ur Specific [place] >=1.030 H Urine Protein NEGATIVE Urine Glucose (UA) NEGATIVE Urine Ketones NEGATIVE Urine Occult Blood NEGATIVE Urine Nitrite POSITIVE H Urine Bilirubin NEGATIVE Urine Urobilinogen 0.2 (NORMAL) Ur Leukocyte Esterase SMALL H Urine RBC 0-5 Urine WBC >25 H Ur Squamous Epith Cells FEW Squamous Urine Bacteria Many H Ur Microscopic Review INDICATED Urine Culture Comments INDICATED PD MEDICAL DECISION MAKING - ED course Complexity details: reviewed results, re-evaluated patient, considered differential ED course: 60-year-old morbidly obese female presents emergency department for 3 to 4 days of right flank pain dysuria and hematuria. She does have a known history of nephrolithiasis as well as pyelonephritis. She does not have any fevers or vomiting. Noted mild hypertension but no tachycardia or hypotension. Screening labs showed no leukocytosis. Her urine is consistent with infection. I did consider acute nephrolithiasis versus pyelonephritis. Last CT imaging completed in late January did not show any findings of kidney stones. Given her clinical stability patient was started on ceftriaxone today in the emergency department and will be discharged with prescription for Vantin. We discussed that if her symptoms do not improve she should return to the ER for a second evaluation. Given the extensive number of CTs that she has had in the past she would prefer to defer imaging today if at all possible. Departure - Departure Disposition: Home, Self Care Clinical Impression: Right flank pain UTI (urinary tract infection) Qualifiers: Urinary tract infection type: acute cystitis Hematuria presence: with hematuria Qualified Code(s): N30.01 - Acute cystitis with hematuria Acute cystitis Qualifiers: Hematuria presence: with hematuria Qualified Code(s): N30.01 - Acute cystitis with hematuria Condition: Stable Record reviewed to determine appropriate education?: Yes Follow-Up: Chino Seth MD [Primary Care Provider] - Prescriptions: Cefpodoxime Proxetil [Vantin] 100 mg PO Q12H #14 tablet Comments: Shonda you were seen in the emergency department today for pain when you pee, h ematuria as well as right flank pain. Your urine does show infection. However your screening labs do not have any elevated white count and you do not have any fevers. As we discussed at the bedside I would like to treat you presumptively today for urinary tract infection. We have given you your first dose of ceftriaxone here in the emergency department and I have sent a prescription for Cefpod oxime/Vantin to the [facility] in [place]. As we discussed at the bedside with your history of stones and previous kidney infections it is important that you return immediately to the ER if you find that your symptoms are worsening despite taking the antibiotics or if you develop any fevers. It is okay to continue to take your other previously prescribed medications.
[2021-06-25 18:41] LABS: BASOPHILS # (AUTO) 0.1 10^3/uL (0.0-0.1); BASOPHILS % (AUTO) 0.5 %; EOSINOPHILS # (AUTO) 0.3 10^3/uL (0.0-0.7); EOSINOPHILS % (AUTO) 2.7 %; HCT - HEMATOCRIT 46.1 % (37.0-47.0); HGB - HEMOGLOBIN 15.3 g/dL (12.0-16.0); LYMPHOCYTES # (AUTO) 2.7 10^3/uL (1.5-3.5); LYMPHOCYTES % (AUTO) 24.4 %; MEAN CORPUSCULAR HEMOGLOBIN 29.3 pg (27.0-31.0); MEAN CORPUSCULAR HGB CONC 33.2 g/dL (32.0-36.0); MEAN CORPUSCULAR VOLUME 88.1 fL (81.0-99.0); MEAN PLATELET VOLUME 9.9 fL (7.9-10.8); MONOCYTES # (AUTO) 0.8 10^3/uL (0.0-1.0); MONOCYTES % (AUTO) 7.3 %; NEUTROPHILS % (AUTO) 64.6 %; PLT - PLATELET COUNT 300 10^3/uL (130-450); RED BLOOD COUNT 5.23 10^6/uL (4.20-5.40); RED CELL DISTRIBUTION WIDTH 13.3 % (12.0-15.0); WHITE BLOOD COUNT 10.9 x10^3/uL (4.8-10.8)
[2021-06-25 18:47] LABS: BILIRUBIN,URINE NEGATIVE (NEGATIVE); GLUCOSE, URINE (UA) NEGATIVE (NEGATIVE); KETONES,URINE (UA) NEGATIVE (NEGATIVE); LEUKOCYTE ESTERASE, URINE SMALL (NEGATIVE); NITRITE,URINE POSITIVE (NEGATIVE); OCCULT BLOOD,URINE NEGATIVE (NEGATIVE); PH,URINE 5.5 PH (5.0-7.5); PROTEIN,URINE NEGATIVE (NEGATIVE); UROBILINOGEN,URINE 0.2 (NORMAL) E.U./dL (NORMAL)
[2021-06-25 18:48] LABS: CLARITY,URINE CLOUDY (CLEAR)
[2021-06-25 18:50] LABS: ALBUMIN 4.1 g/dL (3.2-5.5); ALBUMIN/GLOBULIN RATIO 1.4 (1.0-2.2); BILIRUBIN,TOTAL 0.3 mg/dL (0.2-1.0); CALCIUM 9.2 mg/dL (8.5-10.3); CREATININE 0.8 mg/dL (0.4-1.0)
[2021-06-25 18:57] LABS: BACTERIA,URINE Many /HPF (None Seen); RBC,URINE 0-5 /HPF (0-5); SQUAMOUS EPITHELIAL CELL,UR FEW Squamous (<= Few); WBC,URINE >25 /HPF (0-5)
[2021-06-25] MEDS ORDERED: cefTRIAXone 1 GM in SODIUM CHLORIDE 0.9% MINIBAG 100 ML IV STA (19:08)
[2021-06-25] MEDS ORDERED: cefTRIAXone 1 GM VIAL ONE (19:48)
[2021-06-25 20:26] VITALS: BP 92/60
== END 2021-06-25 20:38 | disposition home or self-care (01) ==
LOC: EDUNIT# → ED 18:05
DX: N30.01 Acute cystitis with hematuria (principal)
CPT/HCPCS: 36415; 80053; 81001; 83690; 85025; 87086; 87181; 96365; 96375; 96376; 99284; J1170; 81003

== ENCOUNTER 2021-07-20 17:45 | Emergency (ER) | payer MEDICAID, MEDICARE ==
[2021-07-20 18:39] LABS: BILIRUBIN,URINE NEGATIVE (NEGATIVE); GLUCOSE, URINE (UA) NEGATIVE (NEGATIVE); KETONES,URINE (UA) TRACE mg/dL (NEGATIVE); LEUKOCYTE ESTERASE, URINE NEGATIVE (NEGATIVE); NITRITE,URINE NEGATIVE (NEGATIVE); OCCULT BLOOD,URINE NEGATIVE (NEGATIVE); PH,URINE 5.5 PH (5.0-7.5); PROTEIN,URINE NEGATIVE (NEGATIVE); UROBILINOGEN,URINE 0.2 (NORMAL) E.U./dL (NORMAL)
[2021-07-20 18:49] LABS: CLARITY,URINE CLEAR (CLEAR)
[2021-07-20] MEDS ORDERED: ONDANSETRON 4 MG/2 ML VIAL IM STA ×2 (18:56→19:27)
[2021-07-20] MEDS ORDERED: HYDROmorphone 1 MG/ML CARPUJECT IM STA ×2 (18:56→19:27)
--- NOTE | 2021-07-20 19:30 | ED Physician Documentation ---
History of Present Illness - Stated complaint Stated Complaint: HEADACHE/PAINFUL URINATION - Chief complaint Chief Complaint: Neuro - History obtained from History obtained from: Patient - History of Present Illness Pain level max: 10 Pain level now: 10 - Additonal information Additional information: Patient is a 60-year-old female who presents to the emergency department with a headache, ongoing for the past 2 to 3 days. Consistent with her usual migraine headache. Unrelieved with Fioricet at home. She states she also has some d ysuria and urinary frequency. No blood in the urine. No fevers. No chills. No back pain. Review of Systems Constitutional: denies: Fever, Chills Eyes: reports: Photophobia. denies: Loss of vision, Decreased vision Ears: denies: Ear pain Nose: denies: Rhinorrhea / runny nose, Congestion Cardiac: denies: Chest pain / pressure Respiratory: denies: Cough GI: denies: Abdominal Pain, Vomiting, Diarrhea Skin: denies: Rash Musculoskeletal: denies: Neck pain, Back pain Neurologic: reports: Headache (Gradual onset, holoacranial, similar to prior migraines). denies: Focal weakness, Numbness, Confused, Altered mental status PD PAST MEDICAL HISTORY - Past Medical History Cardiovascular: Congestive heart failure, Hypertension Respiratory: Asthma, Shortness of breath Neuro: Migraines, Seizure disorder Endocrine/Autoimmune: HyPOthyroidism GI: None JAIL OFFICER: None : Incontinence, Frequency, Kidney stones HEENT: None Psych: Depression, Anxiety, Bipolar disorder Musculoskeletal: Osteoarthritis, Fibromyalgia, Chronic back pain Derm: None - Past Surgical History Past Surgical History: Yes General: Other Ortho: Arthroscopic surgery /JAIL OFFICER: section, Hysterectomy, Oophrectomy, Breast reduction HEENT: Tonsil/Adenoidectomy - Present Medications Home Medications: Ambulatory Orders Medication Instructions Recorded Confirmed Aspirin 81 mg PO DAILY 05/12/19 01/23/21 Butalbital/Aspirin/Caffeine 1 each PO PRN PRN 05/12/19 01/23/21 [Fiorinal 50-325-40 mg Capsule] Celecoxib [CeleBREX] 400 mg PO DAILY 05/12/19 01/23/21 Escitalopram Oxalate [Lexapro] 40 mg PO DAILY 05/12/19 01/23/21 Estrogens, Conjugated [Premarin] 1.25 mg PO DAILY 05/12/19 01/23/21 Levothyroxine [Synthroid] 300 mcg ORAL DAILY 05/12/19 01/23/21 Multivitamin [Daily Multiple 1 each PO DAILY 05/12/19 01/23/21 Vitamin] Stadol Ns 1 spray NS DAILY PRN 05/12/19 01/23/21 Tamsulosin HCl [Flomax] 0.4 mg PO DAILY 05/12/19 01/23/21 diphenhydrAMINE [Benadryl] 25 mg PO DAILY PM 05/12/19 01/23/21 busPIRone [Buspar] 10 mg PO DAILY 08/12/20 01/23/21 ondansetron HCL [Zofran] 4 mg PO Q6HR PRN 08/12/20 01/23/21 tiZANidine [Zanaflex] 12 mg PO DAILY 08/12/20 01/23/21 Albuterol Sulfate [Proair Hfa 1 - 2 puffs INH Q4H PRN 01/23/21 01/23/21 Inhaler] B-Complex with Vitamin C [Super B 1 each PO DAILY 01/23/21 01/23/21 Complex-Vitamin C] Cefpodoxime Proxetil [Vantin] 100 mg PO Q12H #20 tablet 01/23/21 Cholecalciferol [Vitamin D3] 25 mcg PO DAILY 01/23/21 01/23/21 Divalproex [Rola Taylor] 250 mg PO DAILY 01/23/21 01/23/21 LCosmo Gutierrez-LCosmo Kaye-LCosmo Perry-L. Rham 1 each PO TID 01/23/21 01/23/21 [Azo Complete Feminine Balance] Lactobacillus Combination No.4 1 each PO DAILY 01/23/21 01/23/21 [Probiotic] Loratadine [Claritin] 10 mg PO DAILY 01/23/21 01/23/21 Melatonin 20 mg PO DAILY PM 01/23/21 01/23/21 oxyCODONE/ACET 5/325 [Percocet 5 1 tab ORAL Q6HR PRN 01/23/21 01/23/21 mg/325 mg] Cefpodoxime Proxetil [Vantin] 100 mg PO Q12H #14 tablet 06/25/21 - Allergies Allergies/Adverse Reactions: Allergies Allergy/AdvReac Type Severity Reaction Status Date / Time chlorpromazine HCl * Allergy Unknown Verified 06/25/21 18:15 [From Thorazine] droperidol [From Inapsine] Allergy Unknown Verified 06/25/21 18:15 ketorolac tromethamine * Allergy Unknown Verified 06/25/21 18:15 [From Toradol] meperidine HCl * Allergy Unknown Verified 06/25/21 18:15 [From Demerol] metoclopramide HCl * Allergy Unknown Verified 06/25/21 18:15 [From Reglan] morphine Allergy Unknown Verified 06/25/21 18:15 prochlorperazine edisylate * Allergy Unknown Verified 06/25/21 18:15 [From Compazine] prochlorperazine maleate * Allergy Unknown Verified 06/25/21 18:15 [From Compazine] tramadol Allergy Unknown Verified 06/25/21 18:15 [id number] Antimigraine Allergy Unknown Verified 06/25/21 18:15 Agents lorazepam [From Ativan] AdvReac Anxiety Verified 06/25/21 18:15 - Social History Does the pt smoke?: No Smoking Status: Never smoker Does the pt drink ETOH?: No Does the pt have substance abuse?: No - Immunizations Immunizations are current?: Yes Immunizations: TDAP current <10years, Other immun not current - POLST Patient has POLST: No POLST Status: Full Code (Daughter is her DURABLE POWER OF CREDIT ANALYSIS MANAGER. She would like to be full code, but if there is significant cognitive deficits as a result of her illnesses, she wants us to let her go.) PD ED PE NORMAL - Vitals Vital signs reviewed: Yes - General General: Alert and oriented X 3, No acute distress, Well developed/nourished - HEENT HEENT: Atraumatic, PERRL, EOMI, Moist mucous membranes - Neck Neck: Supple, no meningeal sign - Cardiac Cardiac: RRR, Strong equal pulses - Respiratory Respiratory: No respiratory distress, Clear bilaterally - Abdomen Abdomen: Soft, Non tender, Non distended - Back Back: No CVA TTP - Derm Derm: Warm and dry - Neuro Neuro: Alert and oriented X 3, newborn photographer 2-12 intact, No motor deficit, No sensory deficit, Normal speech Eye Opening: Spontaneous Motor: Obeys Commands Verbal: Oriented GCS Score: 15 - Psych Psych: Normal mood, Normal affect Results - Vitals Vitals: Vital Signs - 24 hr 07/20/21 07/20/21 17:58 19:42 Temperature 36.7 C 36.7 C Heart Rate 88 81 Respiratory 19 18 Rate Blood Pressure 142/97 H 140/88 H O2 Saturation 96 96 Oxygen O2 Source [Without Activity] Room air O2 Source Room air - Labs Labs: Laboratory Tests 07/20/21 18:25 Urine Color YELLOW Urine Clarity CLEAR Urine pH 5.5 Ur Specific [place] >=1.030 H Urine Protein NEGATIVE Urine Glucose (UA) NEGATIVE Urine Ketones TRACE Urine Occult Blood NEGATIVE Urine Nitrite NEGATIVE Urine Bilirubin NEGATIVE Urine Urobilinogen 0.2 (NORMAL) Ur Leukocyte Esterase NEGATIVE Ur Microscopic Review NOT INDICATED Urine Culture Comments NOT INDICATED PD MEDICAL DECISION MAKING - ED course Complexity details: reviewed results, re-evaluated patient, considered differential, d/w patient ED course: Patient was treated with her usual headache medications. Headache resolved. No evidence of UTI. No indication for further testing. We will have her follow-up with her doctor for further care. No evidence of subarachnoid hemorrhage, tumor, mass. Patient counseled regarding signs and symptoms for which I believe and urgent re-evaluation would be necessary. Patient with good understanding of and agreement to plan and is comfortable going home at this time This document was made in part using voice recognition software. While efforts are made to proofread this document, sound alike and grammatical errors may occur. Departure - Departure Disposition: 01 Home, Self Care Clinical Impression: Migraine headache Qualifiers: Migraine type: unspecified Status migrainosus presence: without status migrainosus Intractability: not intractable Qualified Code(s): G43.909 - Migraine, unspecified, not intractable, without status migrainosus Condition: Good Instructions: ED Headache Migraine Follow-Up: Chino Seth MD [Primary Care Provider] - As Needed Comments: Please follow-up with your doctor as needed for further care. Please return if you worsen. Your urinalysis does not show any signs of infection today. Neuro headache was improved with Dilaudid and Zofran. Discharge Date/Time: 07/20/21 19:42
[2021-07-20 19:43] VITALS: BP 140/88
== END 2021-07-20 19:42 | disposition home or self-care (01) ==
LOC: ED 17:45
DX: G43.909 Migraine, unspecified, not intractable, without status migrainosus (principal)
CPT/HCPCS: 81003; 96372; 99283; 99284; J1170; 81001; 87086

== ENCOUNTER 2021-08-05 17:19 | Outpatient (CLI) | payer MEDICARE | END 2021-08-05 17:20 | disposition critical access hospital (66) | LOC: EMS 17:19 | DX: M54.50 Low back pain, unspecified (principal); M25.552 Pain in left hip; W01.0XXA Fall on same level from slipping, tripping and stumbling without subsequent striking against object, initial encounter; Y93.01 Activity, walking, marching and hiking; Y92.002 Bathroom of unspecified non-institutional (private) residence as the place of occurrence of the external cause | CPT/HCPCS: A0425; A0429 ==

== ENCOUNTER 2021-08-05 18:05 | Emergency (ER) | payer MEDICARE ==
[2021-08-05] MEDS ORDERED: HYDROmorphone 1 MG/ML CARPUJECT IM STA ×2 (18:41→20:07)
[2021-08-05] MEDS ORDERED: ONDANSETRON 4 MG/2 ML VIAL IM STA (18:41)
--- NOTE | 2021-08-05 18:44 | ED Physician Documentation ---
History of Present Illness - Stated complaint Stated Complaint: BACK/HIP PX - Chief complaint Chief Complaint: Back Pain - Additonal information Additional information: 60-year-old female presents emergency department for evaluation of acute left hip pain. Reports that she was in her bathroom this morning and there was standing water in her bath mat slipped. She fell backwards striking her head but did not lose consciousness. She was able to get up on her own and go back to bed. She does report a history of chronic left hip pain and arthritis. She is scheduled to see an orthopedist in September to discuss possibility of a hip replacement. She does admit to a longstanding opioid use history and does have a refill for Percocet waiting for her at the pharmacy. She does not think she has a broken hip she is simply here for analgesia. Review of Systems Constitutional: denies: Fever, Chills Nose: reports: Reviewed and negative Throat: reports: Reviewed and negative Cardiac: reports: Reviewed and negative Musculoskeletal: reports: Joint pain (left hip) Neurologic: reports: Reviewed and negative PD PAST MEDICAL HISTORY - Past Medical History Cardiovascular: Congestive heart failure, Hypertension Respiratory: Asthma, Shortness of breath Neuro: Migraines, Seizure disorder Endocrine/Autoimmune: HyPOthyroidism GI: None PRESIDENT AND CMO: None : Incontinence, Frequency, Kidney stones HEENT: None Psych: Depression, Anxiety, Bipolar disorder Musculoskeletal: Osteoarthritis, Fibromyalgia, Chronic back pain Derm: None - Past Surgical History Past Surgical History: Yes General: Other Ortho: Arthroscopic surgery /PRESIDENT AND CMO: section, Hysterectomy, Oophrectomy, Breast reduction HEENT: Tonsil/Adenoidectomy - Present Medications Home Medications: Ambulatory Orders Medication Instructions Recorded Confirmed Celecoxib [CeleBREX] 400 mg PO DAILY 05/12/19 08/05/21 Levothyroxine [Synthroid] 150 mcg ORAL DAILY 05/12/19 08/05/21 Stadol Ns 1 spray NS DAILY PRN 05/12/19 08/05/21 Tamsulosin HCl [Flomax] 0.4 mg PO DAILY 05/12/19 08/05/21 busPIRone [Buspar] 10 mg PO DAILY 08/12/20 08/05/21 ondansetron HCL [Zofran] 4 mg PO Q6HR PRN 08/12/20 08/05/21 Albuterol Sulfate [Proair Hfa 1 - 2 puffs INH Q4H PRN 01/23/21 08/05/21 Inhaler] Divalproex Dr [Depakote Dr] 250 mg PO DAILY 01/23/21 08/05/21 oxyCODONE/ACET 5/325 [Percocet 5 1 tab ORAL Q6HR PRN 01/23/21 08/05/21 mg/325 mg] Butalb/Acetaminophen/Caffeine 2 tab PO Q4HR PRN 08/05/21 08/05/21 [Fioricet 50-300-40 mg Capsule] Cyclobenzaprine [Flexeril] 4 mg PO QID 08/05/21 08/05/21 Escitalopram Oxalate 20 mg PO DAILY 08/05/21 08/05/21 Estrogens, Conjugated [Premarin] 1.25 mg PO DAILY 08/05/21 08/05/21 amLODIPine [Norvasc] 10 mg PO DAILY 08/05/21 08/05/21 - Allergies Allergies/Adverse Reactions: Allergies Allergy/AdvReac Type Severity Reaction Status Date / Time chlorpromazine HCl * Allergy Unknown Verified 08/05/21 18:16 [From Thorazine] droperidol [From Inapsine] Allergy Unknown Verified 08/05/21 18:16 ketorolac tromethamine * Allergy Unknown Verified 08/05/21 18:16 [From Toradol] meperidine HCl * Allergy Unknown Verified 08/05/21 18:16 [From Demerol] metoclopramide HCl * Allergy Unknown Verified 08/05/21 18:16 [From Reglan] morphine Allergy Unknown Verified 08/05/21 18:16 prochlorperazine edisylate * Allergy Unknown Verified 08/05/21 18:16 [From Compazine] prochlorperazine maleate * Allergy Unknown Verified 08/05/21 18:16 [From Compazine] tramadol Allergy Unknown Verified 08/05/21 18:16 [id number] Antimigraine Allergy Unknown Verified 08/05/21 18:16 Agents lorazepam [From Ativan] AdvReac Anxiety Verified 08/05/21 18:16 - Social History Does the pt smoke?: No Smoking Status: Never smoker Does the pt drink ETOH?: No Does the pt have substance abuse?: No - Immunizations Immunizations are current?: Yes Immunizations: TDAP current <10years, Other immun not current - POLST Patient has POLST: No POLST Status: Full Code (Daughter is her DURABLE POWER OF NUTRITION DIRECTOR. She would like to be full code, but if there is significant cognitive deficits as a result of her illnesses, she wants us to let her go.) PD ED PE EXPANDED - General General: Alert, In Pain, Other (obese) - Extremities Extremities: Left hip (Exam is limited by body habitus and morbid obesity. Patient does have reduced external flexion passively and actively. Moderate tenderness of the proximal hip though again limited by body habitus. No shortening or malrotation. Distal 2+ pedal pulse.) Results - Vitals Vitals: Vital Signs - 24 hr 08/05/21 08/05/21 18:09 19:01 Temperature 37.1 C Heart Rate 90 80 Respiratory 18 20 Rate Blood Pressure 139/106 H 151/84 H O2 Saturation 97 97 Oxygen O2 Source [Without Activity] Room air O2 Source Room air - Rads (name of study) left hip/pelvis Radiology: Final report received (No acute osseous abnormality. Severe left hip osteoarthritis and moderate right hip osteonecrosis. Lumbar spine degenerative changes) PD MEDICAL DECISION MAKING - ED course Complexity details: reviewed results, re-evaluated patient, d/w patient ED course: 60-year-old female who is well-known to this emergency department presents for acute left hip pain. This is in the setting of a longstanding history of hip osteoarthritis. She had a ground-level fall this morning at home. She has been ambulatory on the hip. But is out of her typical Percocet which is available for her to fill at the pharmacy. An x-ray does show fairly significant osteoarthritis in both hips as well as osteonecrosis of the right hip which is n ot painful. My suspicion for an occult fracture is lower given that she is ambulatory. She presents requesting analgesia only. Here in the emergency department she was given Dilaudid 2 mg which is in a typical dose for her with regards to analgesia and pain control. She is discharged home in stable condition. No prescriptions for narcotics was levied. Emergent return precautions were discussed for failure symptoms to improve or concerns that there may be occult fracture Departure - Departure Disposition: 01 Home, Self Care Clinical Impression: Osteoarthritis of left hip Qualifiers: Osteoarthritis type: unspecified Qualified Code(s): M16.12 - Unilateral primary osteoarthritis, left hip Condition: Stable Record reviewed to determine appropriate education?: Yes Comments: Mee you were seen today in the emergency department for pain in your left hip that was worse after a fall this morning. The x-ray did not show an obvious fracture. You do have severe arthritis in both your hips however. We did give you 2 doses of Dilaudid. You report to us that you have a prescription for purse cassette available to fill which I recommended that you do tomorrow. In the short-term overnight continue your usual care. It is reassuring that you are able to ambulate on this hip. If you find that your typical medicines are not getting control of your pain you can return to the ER for a second evaluation. Continue close follow-up with your primary care doctor as well as the orthopedic doctor that you have been referred to for evaluation of possible hip replacement
--- NOTE | 2021-08-05 19:33 | XRAY Report ---
PROCEDURE: Hip w/Pelvis 2-3V LT INDICATIONS: GLF; pain TECHNIQUE: AP pelvis with lateral view of the left hip. COMPARISON: Left hip radiographs 02/28/2020. FINDINGS: Bones: No acute fractures or dislocations. Pelvic ring appears intact. No suspicious bony lesions. Severe left hip osteoarthrosis and moderate right hip osteoarthrosis, which has significantly progr essed in the left and compared to the prior exam. Degenerative changes are seen in the included lumba r spine. Soft tissues: The visualized bowel gas pattern is normal. No suspicious soft tissue calcifications. IMPRESSION: 1.No acute osseous abnormality. If there is clinical concern or persistent symptoms, additional imagi ng such as repeat radiographs or advanced imaging (e.g. CT, MRI) may be helpful for further evaluatio n. 2.Severe left hip osteoarthrosis and moderate right hip osteonecrosis. 3.Lumbar spine degenerative changes. Reviewed by: Anderson Fraire MD on 08/05/2021 7:31 PM PDT Approved by: Anderson Fraire MD on 08/05/2021 7:31 PM PDT Station ID: [id number]
[2021-08-05] MEDS ORDERED: HYDROmorphone 1 MG/ML CARPUJECT IVP STA ×2 (19:52→19:58)
[2021-08-05 20:13] VITALS: BP 157/86
== END 2021-08-05 20:36 | disposition home or self-care (01) ==
LOC: ED 18:05
DX: M16.12 Unilateral primary osteoarthritis, left hip (principal); I11.0 Hypertensive heart disease with heart failure; I50.9 Heart failure, unspecified; E66.01 Morbid (severe) obesity due to excess calories; Z68.43 Body mass index [BMI] 50.0-59.9, adult
CPT/HCPCS: 73502; 96372; 99283; J1170

== ENCOUNTER 2021-08-30 13:41 | Emergency (ER) | payer MEDICARE ==
[2021-08-30] MEDS ORDERED: ONDANSETRON ODT 4 MG TABLET TL STA (15:49)
[2021-08-30] MEDS ORDERED: HYDROmorphone 1 MG/ML CARPUJECT IM STA (15:49)
--- NOTE | 2021-08-30 15:52 | ED Physician Documentation ---
History of Present Illness - Stated complaint Stated Complaint: HEAD PX/MOOD SWINGS - Chief complaint Chief Complaint: General - Additonal information Additional information: 60-year-old female presents to the emergency department for evaluation of treatment of her migraine headache as well as requesting a refill for Depakote. She is been out for nearly 3 weeks. Has been able to get her primary care provider to prescribe this though she is scheduled to follow-up next week with him. Takes to 50 once daily. Because she is withdrawing from Depakote she reports a migraine. She is requesting a one-time dose of Dilaudid as well as Zofran. She has no fevers, focal neurodeficits. Some nausea but no vomiting. I have seen this patient multiple times in the past and she does appear to be at her usual baseline health. Review of Systems Constitutional: denies: Fever, Chills Eyes: reports: Reviewed and negative Ears: reports: Reviewed and negative Nose: reports: Reviewed and negative Throat: reports: Reviewed and negative Cardiac: reports: Reviewed and negative Respiratory: reports: Reviewed and negative GI: reports: Reviewed and negative Skin: reports: Reviewed and negative Neurologic: reports: Headache PD PAST MEDICAL HISTORY - Past Medical History Past Medical History: Yes Cardiovascular: Congestive heart failure, Hypertension Respiratory: Asthma, Shortness of breath Neuro: Migraines, Seizure disorder Endocrine/Autoimmune: HyPOthyroidism GI: None CONCRETE BLOCK PLANT SUPERVISOR: None : Incontinence, Frequency, Kidney stones HEENT: None Psych: Depression, Anxiety, Bipolar disorder Musculoskeletal: Osteoarthritis, Fibromyalgia, Chronic back pain Derm: None - Past Surgical History Past Surgical History: Yes General: Other Ortho: Arthroscopic surgery /CONCRETE BLOCK PLANT SUPERVISOR: section, Hysterectomy, Oophrectomy, Breast reduction HEENT: Tonsil/Adenoidectomy - Present Medications Home Medications: Ambulatory Orders Medication Instructions Recorded Confirmed Celecoxib [CeleBREX] 400 mg PO DAILY 05/12/19 08/30/21 Levothyroxine [Synthroid] 150 mcg ORAL DAILY 05/12/19 08/30/21 Stadol Ns 1 spray NS DAILY PRN 05/12/19 08/30/21 Tamsulosin HCl [Flomax] 0.4 mg PO DAILY 05/12/19 08/30/21 busPIRone [Buspar] 10 mg PO DAILY 08/12/20 08/30/21 ondansetron HCL [Zofran] 8 mg PO Q6HR PRN 08/12/20 08/30/21 Albuterol Sulfate [Proair Hfa 1 - 2 puffs INH Q4H PRN 01/23/21 08/30/21 Inhaler] Divalproex Dr [Depakote Dr] 250 mg PO DAILY 01/23/21 08/30/21 oxyCODONE/ACET 5/325 [Percocet 5 1 tab ORAL Q6HR PRN 01/23/21 08/30/21 mg/325 mg] Butalb/Acetaminophen/Caffeine 2 tab PO Q4HR PRN 08/05/21 08/30/21 [Fioricet 50-300-40 mg Capsule] Cyclobenzaprine [Flexeril] 4 mg PO QID 08/05/21 08/30/21 Escitalopram Oxalate 40 mg PO DAILY 08/05/21 08/30/21 Estrogens, Conjugated [Premarin] 1.25 mg PO DAILY 08/05/21 08/30/21 amLODIPine [Norvasc] 10 mg PO DAILY 08/05/21 08/30/21 Divalproex ER [Depakote ER] 250 mg PO DAILY #14 tablet 08/30/21 - Allergies Allergies/Adverse Reactions: Allergies Allergy/AdvReac Type Severity Reaction Status Date / Time chlorpromazine HCl * Allergy Unknown Verified 08/30/21 13:47 [From Thorazine] droperidol [From Inapsine] Allergy Unknown Verified 08/30/21 13:47 ketorolac tromethamine * Allergy Unknown Verified 08/30/21 13:47 [From Toradol] meperidine HCl * Allergy Unknown Verified 08/30/21 13:47 [From Demerol] metoclopramide HCl * Allergy Unknown Verified 08/30/21 13:47 [From Reglan] morphine Allergy Unknown Verified 08/30/21 13:47 prochlorperazine edisylate * Allergy Unknown Verified 08/30/21 13:47 [From Compazine] prochlorperazine maleate * Allergy Unknown Verified 08/30/21 13:47 [From Compazine] tramadol Allergy Unknown Verified 08/30/21 13:47 [id number] Antimigraine Allergy Unknown Verified 08/30/21 13:47 Agents lorazepam [From Ativan] AdvReac Anxiety Verified 08/30/21 13:47 - Social History Does the pt smoke?: No Smoking Status: Never smoker Does the pt drink ETOH?: No Does the pt have substance abuse?: No - Immunizations Immunizations are current?: Yes Immunizations: TDAP current <10years, Other immun not current - POLST Patient has POLST: No POLST Status: Full Code (Daughter is her DURABLE POWER OF GAS DISPATCHER. She would like to be full code, but if there is significant cognitive deficits as a result of her illnesses, she wants us to let her go.) PD ED PE NORMAL - General General: Alert and oriented X 3, No acute distress, Well developed/nourished - HEENT HEENT: Atraumatic, Moist mucous membranes - Neck Neck: Supple, no meningeal sign, Thyroid normal - Cardiac Cardiac: RRR, No murmur, No gallop - Respiratory Respiratory: No respiratory distress - Abdomen Abdomen: Normal bowel sounds, Soft, Non tender - Back Back: No CVA TTP, No spinal TTP - Derm Derm: Normal color, Warm and dry, No rash - Extremities Extremities: No deformity - Neuro Neuro: Alert and oriented X 3, flood control engineer 2-12 intact, No motor deficit, Normal speech Eye Opening: Spontaneous Motor: Obeys Commands Verbal: Oriented GCS Score: 15 - Psych Psych: Normal mood Results - Vitals Vitals: Vital Signs - 24 hr 08/30/21 13:47 Temperature 36.5 C Heart Rate 90 Respiratory 16 Rate Blood Pressure 160/100 H O2 Saturation 96 Oxygen O2 Source [Without Activity] Room air O2 Source Room air PD MEDICAL DECISION MAKING - ED course Complexity details: considered differential, d/w patient ED course: 60-year-old female presents emergency department for evaluation of her headache. Reports that she has a migraine secondary to withdrawal from Depakote which she has been out of for 3 weeks. A 2-week prescription for Depakote has been sent to her pharmacy. Here in the emergency department she is administered 1 mg of Dilaudid as well as a one-time dose of Zofran and is discharged home. No opiate prescriptions were given on discharge. Departure - Departure Disposition: 01 Home, Self Care Clinical Impression: Medication refill Migraine Qualifiers: Migraine type: other Status migrainosus presence: without status migrainosus Intractability: not intractable Qualified Code(s): G43.809 - Other migraine, not intractable, without status migrainosus Condition: Stable Record reviewed to determine appropriate education?: Yes Prescriptions: Divalproex ER [Depakote ER] 250 mg PO DAILY #14 tablet Comments: I hope that your headache is feeling better soon. I have sent a 2-week prescription of Depakote to the [facility] in [place]. Please continue to follow-up with your primary care doctor for longer-term management of this prescription.
[2021-08-30 16:04] VITALS: BP 151/102
== END 2021-08-30 16:08 | disposition home or self-care (01) ==
LOC: ED 13:41
DX: G43.809 Other migraine, not intractable, without status migrainosus (principal); T42.6X6A Underdosing of other antiepileptic and sedative-hypnotic drugs, initial encounter; Z91.138 Patient's unintentional underdosing of medication regimen for other reason; Z76.0 Encounter for issue of repeat prescription
CPT/HCPCS: 96372; 99283; 99284; J1170; Q0162

== ENCOUNTER 2021-09-13 20:04 | Emergency (ER) | payer MEDICARE ==
[2021-09-13 20:24] LABS: BILIRUBIN,URINE NEGATIVE (NEGATIVE); GLUCOSE, URINE (UA) NEGATIVE (NEGATIVE); KETONES,URINE (UA) NEGATIVE (NEGATIVE); LEUKOCYTE ESTERASE, URINE NEGATIVE (NEGATIVE); NITRITE,URINE NEGATIVE (NEGATIVE); OCCULT BLOOD,URINE NEGATIVE (NEGATIVE); PH,URINE 5.5 PH (5.0-7.5); PROTEIN,URINE NEGATIVE (NEGATIVE); UROBILINOGEN,URINE 0.2 (NORMAL) E.U./dL (NORMAL)
[2021-09-13 20:28] LABS: CLARITY,URINE CLEAR (CLEAR)
[2021-09-13] MEDS ORDERED: ONDANSETRON ODT 4 MG TABLET TL STA (20:31)
[2021-09-13] MEDS ORDERED: HYDROmorphone 1 MG/ML CARPUJECT IM STA (20:31)
--- NOTE | 2021-09-13 20:36 | ED Physician Documentation ---
History of Present Illness - Stated complaint Stated Complaint: FEMALE - Chief complaint Chief Complaint: General - Additonal information Additional information: 60-year-old female presents emergency department requesting a refill of amlod ipine and Lexapro. She reports that she has been out of both for about 7 weeks. She has had a difficult time getting her primary care provider to refill them as he has recently retired. Patient states that she is found she is more peres than she typically would be and somewhat depressed. She denies thoughts of self-harm. She is also having some mild urinary urgency and frequency. She does have a history of recurrent UTIs as well as history of nephrolithiasis and ureterolithiasis. Patient is well-known to this department. History of migraines. She typically requests dose of Dilaudid and Zofran to help with headaches and body aches. She however does not request refill of her chronic opiates as she understands this can only be completed through her primary provider. Review of Systems Constitutional: denies: Fever, Chills Eyes: reports: Reviewed and negative Nose: reports: Reviewed and negative Throat: reports: Reviewed and negative Cardiac: reports: Reviewed and negative Respiratory: reports: Reviewed and negative : reports: Dysuria, Frequency Skin: reports: Reviewed and negative Musculoskeletal: reports: Reviewed and negative Neurologic: reports: Headache Psychiatric: reports: Depressed, Anxiety. denies: Suicidal, Hallucinations, Delusions PD PAST MEDICAL HISTORY - Past Medical History Cardiovascular: Congestive heart failure, Hypertension Respiratory: Asthma, Shortness of breath Neuro: Migraines, Seizure disorder Endocrine/Autoimmune: HyPOthyroidism GI: None AUTO WASH BUFFER: None : Incontinence, Frequency, Kidney stones HEENT: None Psych: Depression, Anxiety, Bipolar disorder Musculoskeletal: Osteoarthritis, Fibromyalgia, Chronic back pain Derm: None - Past Surgical History Past Surgical History: Yes General: Other Ortho: Arthroscopic surgery /AUTO WASH BUFFER: section, Hysterectomy, Oophrectomy, Breast reduction HEENT: Tonsil/Adenoidectomy - Present Medications Home Medications: Ambulatory Orders Medication Instructions Recorded Confirmed Celecoxib [CeleBREX] 400 mg PO DAILY 05/12/19 08/30/21 Levothyroxine [Synthroid] 150 mcg ORAL DAILY 05/12/19 08/30/21 Stadol Ns 1 spray NS DAILY PRN 05/12/19 08/30/21 Tamsulosin HCl [Flomax] 0.4 mg PO DAILY 05/12/19 08/30/21 busPIRone [Buspar] 10 mg PO DAILY 08/12/20 08/30/21 ondansetron HCL [Zofran] 8 mg PO Q6HR PRN 08/12/20 08/30/21 Albuterol Sulfate [Proair Hfa 1 - 2 puffs INH Q4H PRN 01/23/21 08/30/21 Inhaler] Divalproex Dr [Depakote Dr] 250 mg PO DAILY 01/23/21 08/30/21 oxyCODONE/ACET 5/325 [Percocet 5 1 tab ORAL Q6HR PRN 01/23/21 08/30/21 mg/325 mg] Butalb/Acetaminophen/Caffeine 2 tab PO Q4HR PRN 08/05/21 08/30/21 [Fioricet 50-300-40 mg Capsule] Cyclobenzaprine [Flexeril] 4 mg PO QID 08/05/21 08/30/21 Escitalopram Oxalate 40 mg PO DAILY 08/05/21 08/30/21 Estrogens, Conjugated [Premarin] 1.25 mg PO DAILY 08/05/21 08/30/21 amLODIPine [Norvasc] 10 mg PO DAILY 08/05/21 08/30/21 Divalproex ER [Depakote ER] 250 mg PO DAILY #14 tablet 08/30/21 Amlodipine Besylate [Norvasc] 10 mg PO DAILY #30 tablet 09/13/21 Escitalopram Oxalate [Lexapro] 40 mg PO DAILY #30 tablet 09/13/21 - Allergies Allergies/Adverse Reactions: Allergies Allergy/AdvReac Type Severity Reaction Status Date / Time chlorpromazine HCl * Allergy Unknown Verified 09/13/21 20:08 [From Thorazine] droperidol [From Inapsine] Allergy Unknown Verified 09/13/21 20:08 ketorolac tromethamine * Allergy Unknown Verified 09/13/21 20:08 [From Toradol] meperidine HCl * Allergy Unknown Verified 09/13/21 20:08 [From Demerol] metoclopramide HCl * Allergy Unknown Verified 09/13/21 20:08 [From Reglan] morphine Allergy Unknown Verified 09/13/21 20:08 prochlorperazine edisylate * Allergy Unknown Verified 09/13/21 20:08 [From Compazine] prochlorperazine maleate * Allergy Unknown Verified 09/13/21 20:08 [From Compazine] tramadol Allergy Unknown Verified 09/13/21 20:08 [id number] Antimigraine Allergy Unknown Verified 09/13/21 20:08 Agents lorazepam [From Ativan] AdvReac Anxiety Verified 08/30/21 13:47 - Social History Does the pt smoke?: No Smoking Status: Never smoker Does the pt drink ETOH?: No Does the pt have substance abuse?: No - Immunizations Immunizations are current?: Yes Immunizations: TDAP current <10years, Other immun not current - POLST Patient has POLST: No POLST Status: Full Code (Daughter is her DURABLE POWER OF DIRECTOR SECURITY RISK MANAGEMENT. She would like to be full code, but if there is significant cognitive deficits as a result of her illnesses, she wants us to let her go.) PD ED PE EXPANDED - General General: Alert, Anxious - Cardiac Cardiac: Regular Rate, Radial strong equal, Cap refill < 2 sec - Respiratory Respiratory: Clear to ausultation [id number]. No: Distress, Labored - Abdomen Abdomen: Normal Bowel sounds. No: Tender to palpation - Derm Derm: Normal color, Warm and dry. No: Rash - Extremities Extremities: Normal. No: Deformity, Tenderness - Neuro Neuro: Alert and Oriented X 3, CNII-XII intact - GCS Eye Opening: Spontaneous Motor: Obeys Commands Verbal: Oriented Total: 15 Results - Vitals Vitals: Vital Signs - 24 hr 09/13/21 20:08 Temperature 36.5 C Heart Rate 93 Respiratory 18 Rate Blood Pressure 200/120 H O2 Saturation 98 Oxygen O2 Source [Without Activity] Room air O2 Source Room air - Labs Labs: Laboratory Tests 09/13/21 20:20 Urine Color YELLOW Urine Clarity CLEAR Urine pH 5.5 Ur Specific [place] >=1.030 H Urine Protein NEGATIVE Urine Glucose (UA) NEGATIVE Urine Ketones NEGATIVE Urine Occult Blood NEGATIVE Urine Nitrite NEGATIVE Urine Bilirubin NEGATIVE Urine Urobilinogen 0.2 (NORMAL) Ur Leukocyte Esterase NEGATIVE Ur Microscopic Review NOT INDICATED Urine Culture Comments NOT INDICATED PD MEDICAL DECISION MAKING - ED course Complexity details: reviewed results, re-evaluated patient, considered differential, d/w patient ED course: 60-year-old female who is well-known to this emergency department presents for medication to manage her headaches which are chronic in nature. Unresolved with her typical regimens at home. Previous imaging has been unremarkable. She is requesting Dilaudid and Zofran which we have accommodated. Reevaluation her headache is improved. She is also been out of her amlodipine and Lexapro for a number of weeks. She is feeling more mood lability and depression but no SI. Patient had also reported some urinary urgency and frequency. Her urine is free of signs of infection. Patient's headache is resolved on reevaluation. Amlodipine and Lexapro has been refilled. Will defer any antibiotics for urinary symptoms unless symptoms markedly improved. Given history of recurrent symptoms I do suspect she likely has an interstitial cystitis or similar variant. I have encouraged close follow-up with her PCP which she is scheduled to see on 27 September. Departure - Departure Clinical Impression: Encounter for medication refill Headache Qualifiers: Headache type: unspecified Headache chronicity pattern: unspecified pattern Intractability: not intractable Qualified Code(s): R51.9 - Headache, unspecified Prescriptions: Escitalopram Oxalate [Lexapro] 40 mg PO DAILY #30 tablet Amlodipine Besylate [Norvasc] 10 mg PO DAILY #30 tablet Comments: I have refilled your amlodipine and Lexapro. 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 Please continue close follow-up with your primary doctor. Longer-term evaluation and management of your headaches may be completed with referral to a neurologist. Your urine showed no signs of infection today. If at any point you develop fevers, have sudden severe abdominal pain uncontrolled vomiting then please return to the ER for second evaluation
[2021-09-13 21:27] VITALS: BP 195/99
== END 2021-09-13 21:27 | disposition home or self-care (01) ==
LOC: ED 20:04
DX: Z76.0 Encounter for issue of repeat prescription (principal); R51.9 Headache, unspecified
CPT/HCPCS: 81003; 96372; 99283; J1170; Q0162; 81001; 87086

== ENCOUNTER 2021-10-15 07:54 | Emergency (ER) | payer MEDICARE ==
--- NOTE | 2021-10-15 08:11 | ED Physician Documentation ---
PD HPI FEMALE - Stated complaint Stated Complaint: FEMALE - History obtained from History obtained from: Patient - History of Present Illness Timing - onset: How many days ago (2-3) Timing - duration: Days (2-3) Timing - details: Gradual onset, Still present Associated symptoms: Dysuria, Urinary frequency. No: Fever, Vaginal discharge, Genital sore/lesion, Hematuria Contributing factors: No: Exposed to STD Similar symptoms before: Diagnosis (UTIs in the past.) Recently seen: Not recently seen Review of Systems Constitutional: denies: Fever, Chills GI: denies: Nausea, Vomiting, Diarrhea : reports: Dysuria, Frequency. denies: Discharge Skin: denies: Rash Musculoskeletal: denies: Back pain PD PAST MEDICAL HISTORY - Past Medical History Cardiovascular: Congestive heart failure, Hypertension Respiratory: Asthma, Shortness of breath Neuro: Migraines, Seizure disorder Endocrine/Autoimmune: HyPOthyroidism GI: None DUMP TRUCK OPERATOR: None : Incontinence, Frequency, Kidney stones HEENT: None Psych: Depression, Anxiety, Bipolar disorder Musculoskeletal: Osteoarthritis, Fibromyalgia, Chronic back pain Derm: None - Past Surgical History Past Surgical History: Yes General: Other Ortho: Arthroscopic surgery /DUMP TRUCK OPERATOR: section, Hysterectomy, Oophrectomy, Breast reduction HEENT: Tonsil/Adenoidectomy - Present Medications Home Medications: Ambulatory Orders Medication Instructions Recorded Confirmed Celecoxib [CeleBREX] 400 mg PO DAILY 05/12/19 08/30/21 Levothyroxine [Synthroid] 150 mcg ORAL DAILY 05/12/19 08/30/21 Stadol Ns 1 spray NS DAILY PRN 05/12/19 08/30/21 Tamsulosin HCl [Flomax] 0.4 mg PO DAILY 05/12/19 08/30/21 busPIRone [Buspar] 10 mg PO DAILY 08/12/20 08/30/21 ondansetron HCL [Zofran] 8 mg PO Q6HR PRN 08/12/20 08/30/21 Albuterol Sulfate [Proair Hfa 1 - 2 puffs INH Q4H PRN 01/23/21 08/30/21 Inhaler] Divalproex [Rola Taylor] 250 mg PO DAILY 01/23/21 08/30/21 oxyCODONE/ACET 5/325 [Percocet 5 1 tab ORAL Q6HR PRN 01/23/21 08/30/21 mg/325 mg] Butalb/Acetaminophen/Caffeine 2 tab PO Q4HR PRN 08/05/21 08/30/21 [Fioricet 50-300-40 mg Capsule] Cyclobenzaprine [Flexeril] 4 mg PO QID 08/05/21 08/30/21 Escitalopram Oxalate 40 mg PO DAILY 08/05/21 08/30/21 Estrogens, Conjugated [Premarin] 1.25 mg PO DAILY 08/05/21 08/30/21 amLODIPine [Norvasc] 10 mg PO DAILY 08/05/21 08/30/21 Divalproex ER [Depakote ER] 250 mg PO DAILY #14 tablet 08/30/21 Amlodipine Besylate [Norvasc] 10 mg PO DAILY #30 tablet 09/13/21 Escitalopram Oxalate [Lexapro] 40 mg PO DAILY #30 tablet 09/13/21 cephALEXin [Keflex] 500 mg PO QID 5 Days #20 cap 10/15/21 - Allergies Allergies/Adverse Reactions: Allergies Allergy/AdvReac Type Severity Reaction Status Date / Time chlorpromazine HCl * Allergy Unknown Verified 10/15/21 08:12 [From Thorazine] droperidol [From Inapsine] Allergy Unknown Verified 10/15/21 08:12 ketorolac tromethamine * Allergy Unknown Verified 10/15/21 08:12 [From Toradol] meperidine HCl * Allergy Unknown Verified 10/15/21 08:12 [From Demerol] metoclopramide HCl * Allergy Unknown Verified 10/15/21 08:12 [From Reglan] morphine Allergy Unknown Verified 10/15/21 08:12 prochlorperazine edisylate * Allergy Unknown Verified 10/15/21 08:12 [From Compazine] prochlorperazine maleate * Allergy Unknown Verified 10/15/21 08:12 [From Compazine] tramadol Allergy Unknown Verified 10/15/21 08:12 [id number] Antimigraine Allergy Unknown Verified 10/15/21 08:12 Agents lorazepam [From Ativan] AdvReac Anxiety Verified 10/15/21 08:12 - Social History Does the pt smoke?: No Smoking Status: Never smoker Does the pt drink ETOH?: No Does the pt have substance abuse?: No - Immunizations Immunizations are current?: Yes Immunizations: TDAP current <10years, Other immun not current - POLST Patient has POLST: No POLST Status: Full Code (Daughter is her DURABLE POWER OF SUBSTATION TECHNICIAN. She would like to be full code, but if there is significant cognitive deficits as a result of her illnesses, she wants us to let her go.) PD ED PE NORMAL - Vitals Vital signs reviewed: Yes - General General: Alert and oriented X 3, No acute distress, Well developed/nourished - Abdomen Abdomen: Soft, Non tender, Other (large BMI.) - Female Female : Deferred - Back Back: No CVA TTP - Derm Derm: Normal color, Warm and dry - Neuro Neuro: Alert and oriented X 3, No motor deficit, Normal speech Results - Vitals Vitals: Vital Signs - 24 hr 10/15/21 08:06 Temperature 35.4 C L Heart Rate 96 Respiratory 16 Rate Blood Pressure 144/80 H O2 Saturation 94 Oxygen O2 Source [Without Activity] Room air O2 Source Room air - Labs Labs: Laboratory Tests 10/15/21 08:10 Urine Color YELLOW Urine Clarity CLOUDY Urine pH 5.5 Ur Specific [place] 1.025 Urine Protein TRACE Urine Glucose (UA) NEGATIVE Urine Ketones TRACE Urine Occult Blood NEGATIVE Urine Nitrite NEGATIVE Urine Bilirubin NEGATIVE Urine Urobilinogen 0.2 (NORMAL) Ur Leukocyte Esterase LARGE H Urine RBC 0-5 Urine WBC >25 H Ur Squamous Epith Cells MOD Squamous H Urine Bacteria Moderate H Ur Microscopic Review INDICATED Urine Culture Comments NOT INDICATED PD MEDICAL DECISION MAKING - ED course Complexity details: considered differential (Her urinalysis does show a lot of squames but enough evidence for UTI to correlate with her symptoms. She has a large BMI so sample without squames is less likely. We will go with the symptoms and treat with cephalexin.), d/w patient Departure - Departure Disposition: 01 Home, Self Care Clinical Impression: Cystitis, Dysuria Condition: Stable Record reviewed to determine appropriate education?: Yes Instructions: ED UTI Cystitis Female Follow-Up: Chino Seth MD [Primary Care Provider] - Prescriptions: cephALEXin [Keflex] 500 mg PO QID 5 Days #20 cap Comments: Your urine test does show signs of infection which correspond to your symptoms. We can treat this with cephalexin antibiotic 4 times daily for the next 5 days. To that add phenazopyridine (Azo) 2 tablets 3-4 times daily for the discomfort. Continue your other medicines. I would anticipate improvement over the next 2 to 3 days and resolved by 3 to 5 days. I transmitted your prescription to [facility] pharmacy.
[2021-10-15 08:19] LABS: BILIRUBIN,URINE NEGATIVE (NEGATIVE); GLUCOSE, URINE (UA) NEGATIVE (NEGATIVE); KETONES,URINE (UA) TRACE mg/dL (NEGATIVE); LEUKOCYTE ESTERASE, URINE LARGE (NEGATIVE); NITRITE,URINE NEGATIVE (NEGATIVE); OCCULT BLOOD,URINE NEGATIVE (NEGATIVE); PH,URINE 5.5 PH (5.0-7.5); PROTEIN,URINE TRACE mg/dL (NEGATIVE); UROBILINOGEN,URINE 0.2 (NORMAL) E.U./dL (NORMAL)
[2021-10-15] MEDS ORDERED: HYDROmorphone 2 MG/ML VIAL IM STA (08:20)
[2021-10-15] MEDS ORDERED: PHENAZOPYRIDINE 100 MG TABLET PO STA (08:20)
[2021-10-15] MEDS ORDERED: ONDANSETRON 4 MG/2 ML VIAL IM STA (08:20)
[2021-10-15 08:37] LABS: CLARITY,URINE CLOUDY (CLEAR)
[2021-10-15 08:39] LABS: BACTERIA,URINE Moderate /HPF (None Seen); RBC,URINE 0-5 /HPF (0-5); SQUAMOUS EPITHELIAL CELL,UR MOD Squamous (<= Few); WBC,URINE >25 /HPF (0-5)
[2021-10-15] MEDS ORDERED: cephALEXin 250 MG CAPSULE PO STA (08:40)
[2021-10-15 09:11] VITALS: BP 139/83
== END 2021-10-15 09:11 | disposition home or self-care (01) ==
LOC: ED 07:54
DX: N30.90 Cystitis, unspecified without hematuria (principal); I10 Essential (primary) hypertension
CPT/HCPCS: 81001; 96372; 99282; 99283; A9270; J1170; 81003; 87086

== ENCOUNTER 2022-01-29 13:31 | Emergency (ER) | payer MEDICARE ==
[2022-01-29] MEDS ORDERED: KETOROLAC 60 MG/2 ML VIAL IM STA (13:47)
--- NOTE | 2022-01-29 13:49 | ED Physician Documentation ---
History of Present Illness - Stated complaint Stated Complaint: INJURED RT PINKY FINGER - Chief complaint Chief Complaint: Trauma Ext - Additonal information Additional information: 61-year-old female who is right-hand dominant presents emergency department for evaluation of right small finger injury. She slipped on the carpet of her bathroom jamming her finger. She had obvious deformity at the PIP joint. No history of previous injury Review of Systems Constitutional: reports: Reviewed and negative Throat: reports: Reviewed and negative Musculoskeletal: reports: Joint pain PD PAST MEDICAL HISTORY - Past Medical History Cardiovascular: Congestive heart failure, Hypertension Respiratory: Asthma, Shortness of breath Neuro: Migraines, Seizure disorder Endocrine/Autoimmune: HyPOthyroidism GI: None CORPORATE TUTOR: None : Incontinence, Frequency, Kidney stones HEENT: None Psych: Depression, Anxiety, Bipolar disorder Musculoskeletal: Osteoarthritis, Fibromyalgia, Chronic back pain Derm: None - Past Surgical History Past Surgical History: Yes General: Other Ortho: Arthroscopic surgery /CORPORATE TUTOR: section, Hysterectomy, Oophrectomy, Breast reduction HEENT: Tonsil/Adenoidectomy - Present Medications Home Medications: Ambulatory Orders Medication Instructions Recorded Confirmed Celecoxib [CeleBREX] 400 mg PO DAILY 05/12/19 08/30/21 Levothyroxine [Synthroid] 150 mcg ORAL DAILY 05/12/19 08/30/21 Stadol Ns 1 spray NS DAILY PRN 05/12/19 08/30/21 Tamsulosin HCl [Flomax] 0.4 mg PO DAILY 05/12/19 08/30/21 busPIRone [Buspar] 10 mg PO DAILY 08/12/20 08/30/21 ondansetron HCL [Zofran] 8 mg PO Q6HR PRN 08/12/20 08/30/21 Albuterol Sulfate [Proair Hfa 1 - 2 puffs INH Q4H PRN 01/23/21 08/30/21 Inhaler] Divalproex [Rola Taylor] 250 mg PO DAILY 01/23/21 08/30/21 oxyCODONE/ACET 5/325 [Percocet 5 1 tab ORAL Q6HR PRN 01/23/21 08/30/21 mg/325 mg] Butalb/Acetaminophen/Caffeine 2 tab PO Q4HR PRN 08/05/21 08/30/21 [Fioricet 50-300-40 mg Capsule] Cyclobenzaprine [Flexeril] 4 mg PO QID 08/05/21 08/30/21 Escitalopram Oxalate 40 mg PO DAILY 08/05/21 08/30/21 Estrogens, Conjugated [Premarin] 1.25 mg PO DAILY 08/05/21 08/30/21 amLODIPine [Norvasc] 10 mg PO DAILY 08/05/21 08/30/21 Divalproex ER [Depakote ER] 250 mg PO DAILY #14 tablet 08/30/21 Amlodipine Besylate [Norvasc] 10 mg PO DAILY #30 tablet 09/13/21 Escitalopram Oxalate [Lexapro] 40 mg PO DAILY #30 tablet 09/13/21 cephALEXin [Keflex] 500 mg PO QID 5 Days #20 cap 10/15/21 Ondansetron Odt [Zofran] 4 mg TL Q6H PRN #10 tablet 12/05/21 cephALEXin [Keflex] 500 mg PO BID #14 cap 12/05/21 Cefpodoxime Proxetil [Vantin] 100 mg PO Q12H #20 tablet 12/29/21 - Allergies Allergies/Adverse Reactions: Allergies Allergy/AdvReac Type Severity Reaction Status Date / Time chlorpromazine HCl * Allergy Unknown Verified 01/29/22 13:37 [From Thorazine] droperidol [From Inapsine] Allergy Unknown Verified 01/29/22 13:37 ketorolac tromethamine * Allergy Unknown Verified 01/29/22 13:37 [From Toradol] meperidine HCl * Allergy Unknown Verified 01/29/22 13:37 [From Demerol] metoclopramide HCl * Allergy Unknown Verified 01/29/22 13:37 [From Reglan] morphine Allergy Unknown Verified 01/29/22 13:37 prochlorperazine edisylate * Allergy Unknown Verified 01/29/22 13:37 [From Compazine] prochlorperazine maleate * Allergy Unknown Verified 01/29/22 13:37 [From Compazine] tramadol Allergy Unknown Verified 01/29/22 13:37 [id number] Antimigraine Allergy Unknown Verified 01/29/22 13:37 Agents lorazepam [From Ativan] AdvReac Anxiety Verified 01/29/22 13:37 - Social History Does the pt smoke?: No Smoking Status: Never smoker Does the pt drink ETOH?: No Does the pt have substance abuse?: No - Immunizations Immunizations are current?: Yes Immunizations: TDAP current <10years, Other immun not current - POLST Patient has POLST: No POLST Status: Full Code (Daughter is her DURABLE POWER OF JOINT SEALER. She would like to be full code, but if there is significant cognitive deficits as a result of her illnesses, she wants us to let her go.) PD ED PE EXPANDED - Extremities Extremities: Right finger(s) (small finger deformity with Volar dosplacement of proximal phalynx which was easily reduced with manual traction. NVI. Unable to bend at PIP or DIP joint) Results - Vitals Vitals: Vital Signs - 24 hr 01/29/22 13:33 Temperature 36 C L Heart Rate 99 Respiratory 16 Rate Blood Pressure 150/100 H O2 Saturation 95 Oxygen O2 Source [Without Activity] Room air O2 Source Room air - Rads (name of study) right hand Radiology: Final report received (Possible acute fracture of the dorsal base of the fifth middle phalanx.) PD MEDICAL DECISION MAKING - ED course Complexity details: reviewed results, re-evaluated patient, considered differential, d/w patient ED course: 7-year-old female presents emergency department for evaluation of acute right middle finger injury sustained when she slipped on her carpet at home. She presented to the emergency department with obvious deformity and dislocation at the PIP joint of the small finger. This was easily reduced using manual traction at the bedside. Subsequent x-ray imaging suggest a possible fracture at the base of the middle phalanx. Patient is unable to adequately flex the finger at the PIP joint following reduction. This may be due to occult fracture versus possible flexor tendon injury. She was placed in a finger splint and reports improved pain control. She is advised close follow-up with orthopedics. If not markedly better may benefit from referral to hand for evaluation of possible tendon injury. Otherwise emergent return precautions discussed. Departure - Departure Disposition: 01 Home, Self Care Clinical Impression: Dislocation, finger closed Qualifiers: Encounter type: initial encounter Qualified Code(s): S63.259A - Unspecified dislocation of unspecified finger, initial encounter Avulsion fracture of middle phalanx of finger Qualifiers: Encounter type: initial encounter Fracture type: closed Qualified Code(s): S62.629A - Displaced fracture of middle phalanx of unspecified finger, initial encounter for closed fracture Condition: Stable Record reviewed to determine appropriate education?: Yes Instructions: ED Dislocation Finger Ch, ED Fx Finger Closed Follow-Up: Kenji Suresh MD [Provider Admit Priv/Credential] - Comments: Anitra you are seen today in the emergency department after you slipped at home. You presented to the ER with obvious dislocation of your right small finger at the PIP joint. We are able to use manual traction at the bedside and reduce this. The x-ray suggest a possible small fracture at the base of the middle phalanx. You were placed in a finger splint and your finger was ladonna taped to the alternate finger. I do recommend that you keep your finger in the splint. I recommend close follow-up with your primary care doctor and/or orthopedic surgeon Dr. Suresh. If simple immobilization is not improving symptoms over the next few weeks you may benefit from referral to an orthopedist who specializes in hand injuries to evaluate for the possibility of a tendon injury.
--- NOTE | 2022-01-29 14:03 | XRAY Report ---
PROCEDURE: Hand 3 View RT INDICATIONS: ITS.REASON: Ground-level fall, right small finger injury TECHNIQUE: 3 views of the hand(s) acquired. COMPARISON: None FINDINGS: There is apex volar subluxation of the fifth digit at the PIP joint. On the lateral view, there is do rsal cortical irregularity of the base of the middle phalanx which could represent an acute fracture. IMPRESSION: Possible acute fracture of the dorsal base of the fifth digit middle phalanx. If clinically indicated , follow-up radiographs and/or CT could be obtained for further evaluation. Reviewed by: Anderson Forrest MD on 01/29/2022 2:02 PM PDT Approved by: Anderson Forrest MD on 01/29/2022 2:02 PM PDT Station ID: [id number]
[2022-01-29 14:24] VITALS: BP 145/85
== END 2022-01-29 14:24 | disposition home or self-care (01) ==
LOC: ED 13:31
DX: S63.259A Unspecified dislocation of unspecified finger, initial encounter (principal); S62.629A Displaced fracture of middle phalanx of unspecified finger, initial encounter for closed fracture; W01.198A Fall on same level from slipping, tripping and stumbling with subsequent striking against other object, initial encounter; Y92.002 Bathroom of unspecified non-institutional (private) residence as the place of occurrence of the external cause; I10 Essential (primary) hypertension
CPT/HCPCS: 99282

== ENCOUNTER 2022-04-15 09:44 | Outpatient (CLI) | payer MEDICARE ==
--- NOTE | 2022-04-19 13:00 | Mammography Report ---
BILATERAL DIGITAL DIAGNOSTIC MAMMOGRAM 3D/2D: 04/15/2022 CLINICAL: Palpable right breast lump. Due for bilateral. Comparison is made to exam dated: 06/25/2018 mammogram - [facility]. Both breasts are almost entirely fatty (category a/<25% glandular tissue). There is a possible irregular low density asymmetry in the right breast at the posterior depth betwee n 5 and 7 o'clock. This is not seen in additional views. This is not significantly changed compared to the prior study, and possibly correlates as palpated, however the patient could not find the area of clinical concern at the time of exam. No other significant masses, calcifications, or other findings are seen in either breast. IMPRESSION: INCOMPLETE: NEEDS ADDITIONAL IMAGING EVALUATION The possible irregular low density asymmetry in the right breast most likely is fibroglandular tissue but remains indeterminate. It is not clear if this represents the palpable abnormaltiy. An ultrasoun d is recommended. This was performed immediately following this exam. Based on the Tyrer Cuzick model (a risk assessment model) the patients lifetime risk is 7.8% and her 10 year risk is 3.1%. According to the ACR, ACS, and NCCN guidelines, an annual breast MRI exam codie g with mammogram is recommended if the patients lifetime risk is 20% or greater. This exam was interpreted at Station ID: [id number]. NOTE: For mammograms, a report in lay terms will be sent to the patient. Approximately 15% of breast malignancies will not be visualized mammographically. In the management of a palpable breast mass, a negative mammogram must not discourage biopsy of a clinically suspicious lesion. Electronically Signed By: Zenia calhoun/:04/15/2022 10:35:57 ACR BI-RADS Category 0: Incomplete 3340F PARENCHYMAL PATTERN: (F) - The breast(s) demonstrate(s) diffuse fatty replacement. BI-RADS CATEGORY: (0) - 0 Ultrasound [id number] Immediate follow-up LATERALITY: (B)
--- NOTE | 2022-04-19 13:01 | Ultrasound Report ---
LIMITED ULTRASOUND OF RIGHT BREAST: 04/15/2022 CLINICAL: Palpable right breast lump. Comparison is made to exams dated: 04/15/2022 mammogram and 06/25/2018 mammogram - [facility]. Color flow ultrasound of the right breast lower outer quadrant was performed. [place] scale images of t he real-time examination were reviewed. There is a 0.9 cm x 1 cm x 0.5 cm oval mass with a circumscribed margin in the right breast at 7 o'cl ock posterior depth 12 cm from the nipple. This oval mass is in the superficial tissue, and is hyper echoic with no posterior acoustic shadowing or enhancement. Color flow imaging demonstrates that th ere is no vascularity present. This correlates as palpated and with mammography findings. IMPRESSION: BENIGN The 0.9 cm x 1 cm x 0.5 cm oval mass in the right breast corresponds to the palpable abnormality, is consistent with fat necrosis and is benign. Patient reports prior surgery in the area. A 1 year screening mammogram is recommended. Findings and recommendations were conveyed to the patient at time of exam. This exam was interpreted at Station ID: [id number]. Electronically Signed By: Zenia calhoun/:04/15/2022 11:08:58 Ultrasound BI-RADS: 2 Benign BI-RADS CATEGORY: (2) - 2 RECOMMENDATION: (ANNUAL) - Recommend routine annual screening mammography. [id number] 1 year screening LATERALITY: (B)
== END 2022-04-15 09:45 | disposition home or self-care (01) ==
LOC: DI 09:44
PROVIDERS: ATTEND Family Medicine
DX: N63.13 Unspecified lump in the right breast, lower outer quadrant (principal)

== ENCOUNTER 2022-07-05 20:26 | Emergency (ER) | payer MEDICARE ==
--- NOTE | 2022-07-05 21:41 | ED Physician Documentation ---
PD HPI HEADACHE - Stated complaint Stated Complaint: MIGRAINE - Chief complaint Chief Complaint: Neuro - History obtained from History obtained from: Patient - History of Present Illness Timing - onset: Yesterday Timing - details: Gradual onset Pain level max: 9 Pain level now: 9 Location: Left Quality: Throbbing, Aching Associated symptoms: Nausea, Vomiting, Other (photophobia). No: Fever, Stiff neck, Weakness, Numbness, Syncope, Seizure, Eye pain, Vision changes Contributing factors: No: Anticoagulated, Possible carbon monoxide, Hypertension, Recent illness, Trauma Similar symptoms before: Diagnosis (similar to prior headaches) Review of Systems Constitutional: denies: Fever, Chills Eyes: reports: Photophobia Nose: denies: Rhinorrhea / runny nose, Congestion, Sinus pressure / pain Throat: denies: Sore throat Respiratory: denies: Cough GI: reports: Nausea, Vomiting. denies: Abdominal Pain, Diarrhea Skin: denies: Rash Musculoskeletal: denies: Neck pain, Back pain PD PAST MEDICAL HISTORY - Past Medical History Cardiovascular: Congestive heart failure, Hypertension Respiratory: Asthma, Shortness of breath Neuro: Migraines, Seizure disorder Endocrine/Autoimmune: HyPOthyroidism GI: None BUILDING SPECIALIST: None : Incontinence, Frequency, Kidney stones HEENT: None Psych: Depression, Anxiety, Bipolar disorder Musculoskeletal: Osteoarthritis, Fibromyalgia, Chronic back pain Derm: None - Past Surgical History Past Surgical History: Yes General: Other Ortho: Arthroscopic surgery /BUILDING SPECIALIST: section, Hysterectomy, Oophrectomy, Breast reduction HEENT: Tonsil/Adenoidectomy - Present Medications Home Medications: Ambulatory Orders Medication Instructions Recorded Confirmed Celecoxib [CeleBREX] 400 mg PO DAILY 05/12/19 08/30/21 Levothyroxine [Synthroid] 150 mcg ORAL DAILY 05/12/19 08/30/21 Stadol Ns 1 spray NS DAILY PRN 05/12/19 08/30/21 Tamsulosin HCl [Flomax] 0.4 mg PO DAILY 05/12/19 08/30/21 busPIRone [Buspar] 10 mg PO DAILY 08/12/20 08/30/21 ondansetron HCL [Zofran] 8 mg PO Q6HR PRN 08/12/20 08/30/21 Albuterol Sulfate [Proair Hfa 1 - 2 puffs INH Q4H PRN 01/23/21 08/30/21 Inhaler] Divalproex Dr [Depakote Dr] 250 mg PO DAILY 01/23/21 08/30/21 oxyCODONE/ACET 5/325 [Percocet 5 1 tab ORAL Q6HR PRN 01/23/21 08/30/21 mg/325 mg] Butalb/Acetaminophen/Caffeine 2 tab PO Q4HR PRN 08/05/21 08/30/21 [Fioricet 50-300-40 mg Capsule] Cyclobenzaprine [Flexeril] 4 mg PO QID 08/05/21 08/30/21 Escitalopram Oxalate 40 mg PO DAILY 08/05/21 08/30/21 Estrogens, Conjugated [Premarin] 1.25 mg PO DAILY 08/05/21 08/30/21 amLODIPine [Norvasc] 10 mg PO DAILY 08/05/21 08/30/21 Divalproex ER [Depakote ER] 250 mg PO DAILY #14 tablet 08/30/21 Amlodipine Besylate [Norvasc] 10 mg PO DAILY #30 tablet 09/13/21 Escitalopram Oxalate [Lexapro] 40 mg PO DAILY #30 tablet 09/13/21 cephALEXin [Keflex] 500 mg PO QID 5 Days #20 cap 10/15/21 Ondansetron Odt [Zofran] 4 mg TL Q6H PRN #10 tablet 12/05/21 cephALEXin [Keflex] 500 mg PO BID #14 cap 12/05/21 Cefpodoxime Proxetil [Vantin] 100 mg PO Q12H #20 tablet 12/29/21 - Allergies Allergies/Adverse Reactions: Allergies Allergy/AdvReac Type Severity Reaction Status Date / Time chlorpromazine HCl * Allergy Unknown Verified 07/05/22 20:41 [From Thorazine] droperidol [From Inapsine] Allergy Unknown Verified 07/05/22 20:41 ketorolac tromethamine * Allergy Unknown Verified 07/05/22 20:41 [From Toradol] meperidine HCl * Allergy Unknown Verified 07/05/22 20:41 [From Demerol] metoclopramide HCl * Allergy Unknown Verified 07/05/22 20:41 [From Reglan] morphine Allergy Unknown Verified 07/05/22 20:41 prochlorperazine edisylate * Allergy Unknown Verified 07/05/22 20:41 [From Compazine] prochlorperazine maleate * Allergy Unknown Verified 07/05/22 20:41 [From Compazine] tramadol Allergy Unknown Verified 07/05/22 20:41 [id number] Antimigraine Allergy Unknown Verified 07/05/22 20:41 Agents lorazepam [From Ativan] AdvReac Anxiety Verified 07/05/22 20:41 - Social History Does the pt smoke?: No Smoking Status: Never smoker Does the pt drink ETOH?: No Does the pt have substance abuse?: No - Immunizations Immunizations are current?: Yes Immunizations: TDAP current <10years, Other immun not current - POLST Patient has POLST: No POLST Status: Full Code (Daughter is her DURABLE POWER OF LATHING SUPERVISOR. She would like to be full code, but if there is significant cognitive deficits as a result of her illnesses, she wants us to let her go.) PD ED PE NORMAL - Vitals Vital signs reviewed: Yes - General General: Alert and oriented X 3, No acute distress - HEENT HEENT: Atraumatic, PERRL, Moist mucous membranes - Neck Neck: Supple, no meningeal sign - Cardiac Cardiac: RRR, Strong equal pulses - Respiratory Respiratory: No respiratory distress, Clear bilaterally - Abdomen Abdomen: Soft, Non tender, Non distended - Derm Derm: Warm and dry - Neuro Neuro: Alert and oriented X 3, bus person 2-12 intact, No motor deficit, No sensory deficit, Normal speech Eye Opening: Spontaneous Motor: Obeys Commands Verbal: Oriented GCS Score: 15 - Psych Psych: Normal mood, Normal affect Results - Vitals Vitals: Vital Signs - 24 hr 07/05/22 20:41 Temperature 37.1 C Heart Rate 80 Respiratory 16 Rate Blood Pressure 139/73 H O2 Saturation 96 Oxygen O2 Source [Without Activity] Room air O2 Source Room air PD Medical Decision Making - ED course Complexity details: considered differential, d/w patient ED course: 61-year-old female with her usual migraine headache. She was given 2 mg of Dilaudid IM and 4 mg of Zofran IM. Headache resolved. She feels much better and request to go home at this time. No evidence of subarachnoid hemorrhage, tumor, encephalitis or meningitis. Patient counseled regarding signs and symptoms for which I believe and urgent re-evaluation would be necessary. Patient with good understanding of and agreement to plan and is comfortable going home at this time This document was made in part using voice recognition software. While efforts are made to proofread this document, sound alike and grammatical errors may occur. Departure - Departure Disposition: 01 Home, Self Care Clinical Impression: Migraine Qualifiers: Migraine type: unspecified Status migrainosus presence: without status migrainosus Intractability: not intractable Qualified Code(s): G43.909 - Migraine, unspecified, not intractable, without status migrainosus Condition: Good Instructions: ED Headache Migraine Follow-Up: Chino Seth MD [Primary Care Provider] - As Needed Comments: Please follow-up with your doctor as needed for further care. Please return if you worsen. Go home and rest tonight.
[2022-07-05] MEDS ORDERED: ONDANSETRON 4 MG/2 ML VIAL IM STA (21:43)
[2022-07-05] MEDS ORDERED: HYDROmorphone 1 MG/ML CARPUJECT IM STA (21:43)
[2022-07-05 22:24] VITALS: BP 137/93
== END 2022-07-05 22:23 | disposition home or self-care (01) ==
LOC: ED 20:26
DX: G43.909 Migraine, unspecified, not intractable, without status migrainosus (principal)
CPT/HCPCS: 96372; 99283; J1170

== ENCOUNTER 2022-09-06 18:01 | Emergency (ER) | payer MEDICARE, MEDICAID ==
[2022-09-06] MEDS ORDERED: HYDROmorphone 1 MG/ML CARPUJECT IM STA ×2 (18:24→18:59)
[2022-09-06] MEDS ORDERED: ONDANSETRON 4 MG/2 ML VIAL IM STA (18:24)
--- NOTE | 2022-09-06 18:26 | ED Physician Documentation ---
PD HPI HEADACHE - Stated complaint Stated Complaint: MIGRAINE - Chief complaint Chief Complaint: Neuro - History obtained from History obtained from: Patient - Additional information Additional information: She had her typical throbbing bitemporal migraine since yesterday that has been resistant to her usual home treatments consisting of Fioricet Lortab Aleve Advil tizanidine. She is nauseous and light sensitive. No fevers. PD PAST MEDICAL HISTORY - Past Medical History Cardiovascular: Congestive heart failure, Hypertension Respiratory: Asthma, Shortness of breath Neuro: Migraines, Seizure disorder Endocrine/Autoimmune: HyPOthyroidism GI: None MEDICARE COORDINATOR: None : Incontinence, Frequency, Kidney stones HEENT: None Psych: Depression, Anxiety, Bipolar disorder Musculoskeletal: Osteoarthritis, Fibromyalgia, Chronic back pain Derm: None - Past Surgical History Past Surgical History: Yes General: Other Ortho: Arthroscopic surgery /MEDICARE COORDINATOR: section, Hysterectomy, Oophrectomy, Breast reduction HEENT: Tonsil/Adenoidectomy - Present Medications Home Medications: Ambulatory Orders Medication Instructions Recorded Confirmed Celecoxib [CeleBREX] 400 mg PO DAILY 05/12/19 08/30/21 Levothyroxine [Synthroid] 150 mcg ORAL DAILY 05/12/19 08/30/21 Stadol Ns 1 spray NS DAILY PRN 05/12/19 08/30/21 Tamsulosin HCl [Flomax] 0.4 mg PO DAILY 05/12/19 08/30/21 busPIRone [Buspar] 10 mg PO DAILY 08/12/20 08/30/21 ondansetron HCL [Zofran] 8 mg PO Q6HR PRN 08/12/20 08/30/21 Albuterol Sulfate [Proair Hfa 1 - 2 puffs INH Q4H PRN 01/23/21 08/30/21 Inhaler] Divalproex Dr [Depakokandace Taylor] 250 mg PO DAILY 01/23/21 08/30/21 oxyCODONE/ACET 5/325 [Percocet 5 1 tab ORAL Q6HR PRN 01/23/21 08/30/21 mg/325 mg] Butalb/Acetaminophen/Caffeine 2 tab PO Q4HR PRN 08/05/21 08/30/21 [Fioricet 50-300-40 mg Capsule] Cyclobenzaprine [Flexeril] 4 mg PO QID 08/05/21 08/30/21 Escitalopram Oxalate 40 mg PO DAILY 08/05/21 08/30/21 Estrogens, Conjugated [Premarin] 1.25 mg PO DAILY 08/05/21 08/30/21 amLODIPine [Norvasc] 10 mg PO DAILY 08/05/21 08/30/21 Divalproex ER [Depakote ER] 250 mg PO DAILY #14 tablet 08/30/21 Amlodipine Besylate [Norvasc] 10 mg PO DAILY #30 tablet 09/13/21 Escitalopram Oxalate [Lexapro] 40 mg PO DAILY #30 tablet 09/13/21 cephALEXin [Keflex] 500 mg PO QID 5 Days #20 cap 10/15/21 Ondansetron Odt [Zofran] 4 mg TL Q6H PRN #10 tablet 12/05/21 cephALEXin [Keflex] 500 mg PO BID #14 cap 12/05/21 Cefpodoxime Proxetil [Vantin] 100 mg PO Q12H #20 tablet 12/29/21 - Allergies Allergies/Adverse Reactions: Allergies Allergy/AdvReac Type Severity Reaction Status Date / Time chlorpromazine HCl * Allergy Unknown Verified 09/06/22 18:16 [From Thorazine] droperidol [From Inapsine] Allergy Unknown Verified 09/06/22 18:16 ketorolac tromethamine * Allergy Unknown Verified 09/06/22 18:16 [From Toradol] meperidine HCl * Allergy Unknown Verified 09/06/22 18:16 [From Demerol] metoclopramide HCl * Allergy Unknown Verified 09/06/22 18:16 [From Reglan] morphine Allergy Unknown Verified 09/06/22 18:16 prochlorperazine edisylate * Allergy Unknown Verified 09/06/22 18:16 [From Compazine] prochlorperazine maleate * Allergy Unknown Verified 09/06/22 18:16 [From Compazine] tramadol Allergy Unknown Verified 09/06/22 18:16 [id number] Antimigraine Allergy Unknown Verified 09/06/22 18:16 Agents lorazepam [From Ativan] AdvReac Anxiety Verified 07/05/22 20:41 - Social History Does the pt smoke?: No Smoking Status: Never smoker Does the pt drink ETOH?: No Does the pt have substance abuse?: No - Immunizations Immunizations are current?: Yes Immunizations: TDAP current <10years, Other immun not current - POLST Patient has POLST: No POLST Status: Full Code (Daughter is her DURABLE POWER OF FLOOR CLEANER. She would like to be full code, but if there is significant cognitive deficits as a result of her illnesses, she wants us to let her go.) PD ED PE NORMAL - Vitals Vital signs reviewed: Yes - General General: Alert and oriented X 3, Other (Photophobic and uncomfortable) - HEENT HEENT: PERRL - Neck Neck: Supple, no meningeal sign, No bony TTP - Neuro Neuro: Alert and oriented X 3, lactation coordinator 2-12 intact Eye Opening: Spontaneous Motor: Obeys Commands Verbal: Oriented GCS Score: 15 Results - Vitals Vitals: Vital Signs - 24 hr 09/06/22 18:12 Temperature 36.4 C L Heart Rate 80 Respiratory 16 Rate Blood Pressure 129/85 H O2 Saturation 100 Oxygen O2 Source [Without Activity] Room air O2 Source Room air PD Medical Decision Making - ED course ED course: The headache is gradual in onset and similar to prior headaches. As such I doubt subarachnoid hemorrhage. There are no infectious symptoms such as fever or stiff neck to make me suspect meningitis. No carbon monoxide exposure by history. Departure - Departure Disposition: 01 Home, Self Care Clinical Impression: Migraine Qualifiers: Migraine type: with aura Status migrainosus presence: with status migrainosus Intractability: intractable Qualified Code(s): G43.111 - Migraine with aura, intractable, with status migrainosus Condition: Good Instructions: ED Headache Migraine Comments: Call your doctor to arrange a follow-up appointment, make the next available appointment. In the interim, return anytime if worse or if new symptoms develop.
[2022-09-06 19:11] VITALS: BP 157/90
== END 2022-09-06 19:23 | disposition home or self-care (01) ==
LOC: ED 18:01
DX: G43.111 Migraine with aura, intractable, with status migrainosus (principal)
CPT/HCPCS: 96372; 99282; 99283; J1170

== ENCOUNTER 2022-10-03 18:27 | Emergency (ER) | payer MEDICARE, MEDICAID ==
--- NOTE | 2022-10-03 18:50 | ED Physician Documentation ---
PD HPI FEMALE - Stated complaint Stated Complaint: FEM - Chief complaint Chief Complaint: Abd Pain - History obtained from History obtained from: Patient - Additional information Additional information: 62-year-old female with a longstanding history of migraines presents with a migraine headache for the last several days. She has been trying numerous things at home including NSAIDs, Fioricet, laying in a dark room, and other things that typically are helpful For her but headache continues. It feels similar, exactly same, as prior migraines and this is not the worst headache of her life or thunderclap headache. She has no associated neurologic changes. She has nausea but no vomiting and has light sensitivity. The patient has been seen several times here for migraines in the past and typically the only thing that helps her is Dilaudid. She does not do well with Toradol or Triptans. Patient also states that she has had some right flank pain for the last several days with some dysuria and hematuria. She is concerned for UTI. She has been dealing with this for 3 days or so as well. She has been taking Azo and pain medication as described above without relief. She has not had any vomiting, no fever, no other abdominal pain. She does have a history of kidney stones though this was not a sudden onset pain and is mild to moderate in severity. Review of Systems Constitutional: reports: Reviewed and negative Eyes: reports: Reviewed and negative Cardiac: reports: Reviewed and negative Respiratory: reports: Reviewed and negative GI: reports: Nausea. denies: Abdominal Pain, Abdominal Swelling, Vomiting, Constipation, Diarrhea, Hematemesis, Bloody / black stool, Other : reports: Dysuria, Hematuria. denies: Frequency, Hesitancy, Unable to Void, Incontinent, Discharge, LMP, Vaginal bleeding, Irregular menses, Missed period, Now EGA, Control, Hysterectomy, Testicular pain, Testicular mass, Stauffer Problem, Reviewed and negative, Other Skin: denies: Rash, Lesions, Abrasion (s), Laceration (s), Bite / sting, Reviewed and negative, Other Musculoskeletal: reports: Back pain. denies: Neck pain, Extremity pain, Joint pain, Extremity swelling, Joint swelling, Pain with weight bearing, Reviewed and negative, Other Neurologic: reports: Headache. denies: Generalized weakness, Focal weakness, Numbness, Difficulty speaking, Near syncope, Syncope, Seizure, Confused, Altered mental status, Unresponsive, Head injury, LOC, Reviewed and negative, Other PD PAST MEDICAL HISTORY - Past Medical History Past Medical History: Yes Cardiovascular: Congestive heart failure, Hypertension Respiratory: Asthma, Shortness of breath Neuro: Migraines, Seizure disorder Endocrine/Autoimmune: HyPOthyroidism GI: None FAX MACHINE REPAIRER: None : Incontinence, Frequency, Kidney stones HEENT: None Psych: Depression, Anxiety, Bipolar disorder Musculoskeletal: Osteoarthritis, Fibromyalgia, Chronic back pain Derm: None - Past Surgical History Past Surgical History: Yes General: Other Ortho: Arthroscopic surgery /FAX MACHINE REPAIRER: section, Hysterectomy, Oophrectomy, Breast reduction HEENT: Tonsil/Adenoidectomy - Present Medications Home Medications: Ambulatory Orders Medication Instructions Recorded Confirmed Celecoxib [CeleBREX] 400 mg PO DAILY 05/12/19 10/03/22 Levothyroxine [Synthroid] 150 mcg ORAL DAILY 05/12/19 10/03/22 Stadol Ns 1 spray NS DAILY PRN 05/12/19 08/30/21 Tamsulosin HCl [Flomax] 0.4 mg PO DAILY 05/12/19 10/03/22 busPIRone [Buspar] 10 mg PO DAILY 08/12/20 10/03/22 ondansetron HCL [Zofran] 8 mg PO Q6HR PRN 08/12/20 10/03/22 Albuterol Sulfate [Proair Hfa 1 - 2 puffs INH Q4H PRN 01/23/21 10/03/22 Inhaler] Divalproex Dr [Depakote Dr] 250 mg PO DAILY 01/23/21 08/30/21 oxyCODONE/ACET 5/325 [Percocet 5 1 tab ORAL Q6HR PRN 01/23/21 10/03/22 mg/325 mg] Butalb/Acetaminophen/Caffeine 2 tab PO Q4HR PRN 08/05/21 10/03/22 [Fioricet 50-300-40 mg Capsule] Cyclobenzaprine [Flexeril] 4 mg PO QID 08/05/21 10/03/22 Escitalopram Oxalate 40 mg PO DAILY 08/05/21 08/30/21 Estrogens, Conjugated [Premarin] 1.25 mg PO DAILY 08/05/21 10/03/22 amLODIPine [Norvasc] 10 mg PO DAILY 04/21/22 06/19/23 Divalproex ER [Depakote ER] 250 mg PO DAILY #14 tablet 08/30/21 10/03/22 Amlodipine Besylate [Norvasc] 10 mg PO DAILY #30 tablet 09/13/21 Escitalopram Oxalate [Lexapro] 40 mg PO DAILY #30 tablet 09/13/21 10/03/22 cephALEXin [Keflex] 500 mg PO QID 5 Days #20 cap 10/15/21 Ondansetron Odt [Zofran] 4 mg TL Q6H PRN #10 tablet 12/05/21 cephALEXin [Keflex] 500 mg PO BID #14 cap 12/05/21 Cefpodoxime Proxetil [Vantin] 100 mg PO Q12H #20 tablet 12/29/21 Cefpodoxime Proxetil [Vantin] 100 mg PO Q12H #20 tablet 10/03/22 - Allergies Allergies/Adverse Reactions: Allergies Allergy/AdvReac Type Severity Reaction Status Date / Time chlorpromazine HCl * Allergy Unknown Verified 10/03/22 18:42 [From Thorazine] droperidol [From Inapsine] Allergy Unknown Verified 10/03/22 18:42 ketorolac tromethamine * Allergy Unknown Verified 10/03/22 18:42 [From Toradol] meperidine HCl * Allergy Unknown Verified 10/03/22 18:42 [From Demerol] metoclopramide HCl * Allergy Unknown Verified 10/03/22 18:42 [From Reglan] morphine Allergy Unknown Verified 10/03/22 18:42 prochlorperazine edisylate * Allergy Unknown Verified 10/03/22 18:42 [From Compazine] prochlorperazine maleate * Allergy Unknown Verified 10/03/22 18:42 [From Compazine] tramadol Allergy Unknown Verified 10/03/22 18:42 [id number] Antimigraine Allergy Unknown Verified 10/03/22 18:42 Agents lorazepam [From Ativan] AdvReac Anxiety Verified 10/03/22 18:42 - Social History Does the pt smoke?: No Smoking Status: Never smoker Does the pt drink ETOH?: No Does the pt have substance abuse?: No - Immunizations Immunizations are current?: Yes Immunizations: TDAP current <10years, Other immun not current - POLST Patient has POLST: No POLST Status: Full Code (Daughter is her DURABLE POWER OF QUALITY CONTROL SUPERVISOR. She would like to be full code, but if there is significant cognitive deficits as a result of her illnesses, she wants us to let her go.) PD ED PE NORMAL - Vitals Vital signs reviewed: Yes - General General: Alert and oriented X 3, No acute distress, Well developed/nourished - HEENT HEENT: Atraumatic, Pharynx benign - Cardiac Cardiac: RRR, No murmur - Respiratory Respiratory: No respiratory distress, Clear bilaterally - Abdomen Abdomen: Normal bowel sounds, Soft, Non tender, Non distended, Other (Obese) - Back Back: No CVA TTP, No spinal TTP - Derm Derm: Normal color, Warm and dry, No rash - Neuro Neuro: Alert and oriented X 3, No motor deficit, No sensory deficit, Normal speech Eye Opening: Spontaneous Motor: Obeys Commands Verbal: Oriented GCS Score: 15 Results - Vitals Vitals: Vital Signs - 24 hr 10/03/22 10/03/22 10/03/22 18:34 19:07 20:44 Temperature 37.1 C Heart Rate 91 72 68 Respiratory 22 20 20 Rate Blood Pressure 155/97 H 154/97 H 159/88 H O2 Saturation 100 98 99 Oxygen O2 Source [Without Activity] Room air O2 Source Room air - Labs Labs: Laboratory Tests 10/03/22 10/03/22 10/03/22 18:38 19:04 19:04 WBC 10.0 RBC 4.85 Hgb 14.1 Hct 43.8 MCV 90.3 MCH 29.1 MCHC 32.2 RDW 13.7 Plt Count 273 MPV 9.7 Neut # (Auto) 6.2 Lymph # (Auto) 2.8 [place] # (Auto) 0.6 Eos # (Auto) 0.3 Baso # (Auto) 0.1 Absolute Nucleated RBC 0.00 Nucleated RBC % 0.0 Sodium 141 Potassium 4.1 Chloride 104 Carbon Dioxide 27 Anion Gap 10.0 BUN 22 H Creatinine 0.8 Estimated GFR (MDRD) 73 L Glucose 111 H Calcium 8.9 Urine Color YELLOW Urine Clarity CLOUDY Urine pH 7.5 Ur Specific [place] 1.010 Urine Protein TRACE Urine Glucose (UA) NEGATIVE Urine Ketones NEGATIVE Urine Occult Blood NEGATIVE Urine Nitrite POSITIVE H Urine Bilirubin NEGATIVE Urine Urobilinogen 1 (NORMAL) Ur Leukocyte Esterase SMALL H Urine RBC 0-5 Urine WBC 11-25 H Ur Squamous Epith Cells NONE SEEN Urine Bacteria Many H Ur Microscopic Review INDICATED Urine Culture Comments INDICATED PD Medical Decision Making - ED course Complexity details: reviewed old records, reviewed results, re-evaluated patient, considered differential, d/w patient, d/w family ED course: 62-year-old female with past medical history as above presents with both a migraine as well as concern for possible UTI with dysuria, hematuria and mild right flank pain. Low suspicion for kidney stone as pain is minimal, no CVAT. Her CBC and CMP are reassuring but urinalysis is suggestive of infection. Prior cultures are typically E. coli, pansensitive, therefore patient was started on ceftriaxone here in the ER And I had plan to discharge her home on Keflex per prior cultures however patient stated that she previously had a failed Keflex therapy and had to return and get Vantin which she would like today. I have prescribed 10 days of Vantin and we will follow up on her urine culture. We also treated her migraine headache. I reviewed prior notes and patient has been treated with Dilaudid in the past with resolution. This is her preference today because she has a number of allergies and intolerances to other medic ations. I have therefore given her a 1 mg IV Dilaudid and 4 mg of Zofran. This did not provide any relief and the patient got a subsequent 1 mg of Dilaudid with improvement in her migraine. Migraine was exactly the same as her typical migraines, And not a thunderclap headache or the worst headache of her life, and there are no neurologic changes therefore I have Low suspicion at this time for intracerebral hemorrhage or other etiology of her Headache. I do believe she is stable for discharge home at this time. She will resume her regular headache medications and supportive measures for migraines and treatment for her UTI. She was advised to return precautions however if worsening symptoms or if she developed a fever, or other new concerns. Departure - Departure Disposition: Home, Self Care Clinical Impression: Acute cystitis Qualifiers: Hematuria presence: without hematuria Qualified Code(s): N30.00 - Acute cystitis without hematuria Migraine headache Qualifiers: Migraine type: without aura Status migrainosus presence: without status migrainosus Intractability: not intractable Qualified Code(s): G43.009 - Migraine without aura, not intractable, without status migrainosus Condition: Good Instructions: ED Headache Migraine, ED UTI Cystitis Female Prescriptions: Cefpodoxime Proxetil [Vantin] 100 mg PO Q12H #20 tablet Comments: You have a urinary tract infection and I have placed you on antibiotics for the next 10 days, the same antibiotic that helped last time. You did receive a first dose of antibiotics here in the ER. Please follow-up with your primary doctor if you have ongoing symptoms return to the ER if you develop a fever, or worsening symptoms. We also treated you for a headache and you did receive narcotic pain medication via the IV. You should not drive, operate heavy machinery or make any important decisions over the next 24 hours while that medication is present. Antibiotics sent to [facility] in [place].
[2022-10-03 19:09] LABS: BASOPHILS # (AUTO) 0.1 10^3/uL (0.0-0.1); BASOPHILS % (AUTO) 0.5 %; EOSINOPHILS # (AUTO) 0.3 10^3/uL (0.0-0.7); EOSINOPHILS % (AUTO) 3.1 %; HCT - HEMATOCRIT 43.8 % (37.0-47.0); HGB - HEMOGLOBIN 14.1 g/dL (12.0-16.0); LYMPHOCYTES # (AUTO) 2.8 10^3/uL (1.5-3.5); LYMPHOCYTES % (AUTO) 27.7 %; MEAN CORPUSCULAR HEMOGLOBIN 29.1 pg (27.0-31.0); MEAN CORPUSCULAR HGB CONC 32.2 g/dL (32.0-36.0); MEAN CORPUSCULAR VOLUME 90.3 fL (81.0-99.0); MEAN PLATELET VOLUME 9.7 fL (7.9-10.8); MONOCYTES # (AUTO) 0.6 10^3/uL (0.0-1.0); MONOCYTES % (AUTO) 6.3 %; NEUTROPHILS # (AUTO) 6.2 10^3/uL (1.5-6.6); PLT - PLATELET COUNT 273 10^3/uL (130-450); RED BLOOD COUNT 4.85 10^6/uL (4.20-5.40); RED CELL DISTRIBUTION WIDTH 13.7 % (12.0-15.0)
[2022-10-03] MEDS ORDERED: ONDANSETRON 4 MG/2 ML VIAL IVP STA (19:11)
[2022-10-03] MEDS ORDERED: HYDROmorphone 1 MG/ML CARPUJECT IVP STA ×2 (19:11→20:00)
[2022-10-03 19:12] LABS: BILIRUBIN,URINE NEGATIVE (NEGATIVE); GLUCOSE, URINE (UA) NEGATIVE (NEGATIVE); KETONES,URINE (UA) NEGATIVE (NEGATIVE); LEUKOCYTE ESTERASE, URINE SMALL (NEGATIVE); NITRITE,URINE POSITIVE (NEGATIVE); OCCULT BLOOD,URINE NEGATIVE (NEGATIVE); PH,URINE 7.5 PH (5.0-7.5); PROTEIN,URINE TRACE mg/dL (NEGATIVE); UROBILINOGEN,URINE 1 (NORMAL) E.U./dL (NORMAL)
[2022-10-03 19:14] LABS: BACTERIA,URINE Many /HPF (None Seen); CLARITY,URINE CLOUDY (CLEAR); RBC,URINE 0-5 /HPF (0-5); SQUAMOUS EPITHELIAL CELL,UR NONE SEEN (<= Few)
[2022-10-03 19:17] LABS: CALCIUM 8.9 mg/dL (8.5-10.3); CREATININE 0.8 mg/dL (0.4-1.0); POTASSIUM 4.1 mmol/L (3.5-5.0)
[2022-10-03] MEDS ORDERED: cefTRIAXone 2 GM in SODIUM CHLORIDE 0.9% MINIBAG 100 ML IV STA (19:54)
[2022-10-03] MEDS ORDERED: cefTRIAXone 2 GM VIAL ONE (20:34)
[2022-10-03 20:48] VITALS: BP 159/88
== END 2022-10-03 21:20 | disposition home or self-care (01) ==
LOC: ED 18:27
DX: N30.00 Acute cystitis without hematuria (principal); G43.009 Migraine without aura, not intractable, without status migrainosus
CPT/HCPCS: 36415; 80048; 81001; 85025; 87086; 87181; 96365; 96375; 96376; 99283; 99284; J1170; 81003

== ENCOUNTER 2022-11-07 20:55 | Emergency (ER) | payer MEDICARE, MEDICAID ==
[2022-11-07] MEDS ORDERED: KETOROLAC 30 MG/ML VIAL IVP STA (21:50)
[2022-11-07 21:56] LABS: BILIRUBIN,URINE NEGATIVE (NEGATIVE); GLUCOSE, URINE (UA) NEGATIVE (NEGATIVE); KETONES,URINE (UA) TRACE mg/dL (NEGATIVE); LEUKOCYTE ESTERASE, URINE NEGATIVE (NEGATIVE); NITRITE,URINE NEGATIVE (NEGATIVE); OCCULT BLOOD,URINE NEGATIVE (NEGATIVE); PROTEIN,URINE NEGATIVE (NEGATIVE); UROBILINOGEN,URINE 0.2 (NORMAL) E.U./dL (NORMAL)
[2022-11-07 21:58] LABS: CLARITY,URINE CLEAR (CLEAR)
--- NOTE | 2022-11-07 22:02 | ED Physician Documentation ---
History of Present Illness - Stated complaint Stated Complaint: FEMALE /HEAD PX - Chief complaint Chief Complaint: Abd Pain - History obtained from History obtained from: Patient - Additonal information Additional information: The patient comes to the emergency department chief complaint of ongoing dysuria and migraine. She has had a urinary tract infection for the last approximately 3 weeks and has been first on a course of Vantin and then on a course of cefuroxime each for 10 days. She states that her doctor put her on the cefuroxime after she was down to 1 dose of her Vantin and it still did not seem like her symptoms had gone away. She states her doctors in [place] and did repeat a UA and culture but that the first UA and culture were done here At [facility]. The patient states that she does not have any fever or chills or nausea associated with the dysuria, but just that she has a lot of pressure in her bladder area. She also states she has had a migraine for about 24 hours. She has tried taking her chronic Vicodin and Fioricet as well as Aleve. She has also been putting ice packs on her neck and this does not seem to be helping. She states that Dilaudid and Zofran usually work well for her. No other complaints at this time. PD PAST MEDICAL HISTORY - Past Medical History Cardiovascular: Congestive heart failure, Hypertension Respiratory: Asthma, Shortness of breath Neuro: Migraines, Seizure disorder Endocrine/Autoimmune: HyPOthyroidism GI: None DINKEY MECHANIC: None : Incontinence, Frequency, Kidney stones HEENT: None Psych: Depression, Anxiety, Bipolar disorder Musculoskeletal: Osteoarthritis, Fibromyalgia, Chronic back pain Derm: None - Past Surgical History Past Surgical History: Yes General: Other Ortho: Arthroscopic surgery /DINKEY MECHANIC: section, Hysterectomy, Oophrectomy, Breast reduction HEENT: Tonsil/Adenoidectomy - Present Medications Home Medications: Ambulatory Orders Medication Instructions Recorded Confirmed Celecoxib [CeleBREX] 400 mg PO DAILY 05/12/19 10/03/22 Levothyroxine [Synthroid] 150 mcg ORAL DAILY 05/12/19 10/03/22 Stadol Ns 1 spray NS DAILY PRN 05/12/19 08/30/21 Tamsulosin HCl [Flomax] 0.4 mg PO DAILY 05/12/19 10/03/22 busPIRone [Buspar] 10 mg PO DAILY 08/12/20 10/03/22 ondansetron HCL [Zofran] 8 mg PO Q6HR PRN 08/12/20 10/03/22 Albuterol Sulfate [Proair Hfa 1 - 2 puffs INH Q4H PRN 01/23/21 10/03/22 Inhaler] Divalproex Dr [Depakote Dr] 250 mg PO DAILY 01/23/21 08/30/21 oxyCODONE/ACET 5/325 [Percocet 5 1 tab ORAL Q6HR PRN 01/23/21 10/03/22 mg/325 mg] Butalb/Acetaminophen/Caffeine 2 tab PO Q4HR PRN 08/05/21 10/03/22 [Fioricet 50-300-40 mg Capsule] Cyclobenzaprine [Flexeril] 4 mg PO QID 08/05/21 10/03/22 Escitalopram Oxalate 40 mg PO DAILY 08/05/21 08/30/21 Estrogens, Conjugated [Premarin] 1.25 mg PO DAILY 08/05/21 10/03/22 amLODIPine [Norvasc] 10 mg PO DAILY 08/05/21 10/03/22 Divalproex ER [Depakote ER] 250 mg PO DAILY #14 tablet 08/30/21 10/03/22 Amlodipine Besylate [Norvasc] 10 mg PO DAILY #30 tablet 09/13/21 Escitalopram Oxalate [Lexapro] 40 mg PO DAILY #30 tablet 09/13/21 10/03/22 cephALEXin [Keflex] 500 mg PO QID 5 Days #20 cap 10/15/21 Ondansetron Odt [Zofran] 4 mg TL Q6H PRN #10 tablet 12/05/21 cephALEXin [Keflex] 500 mg PO BID #14 cap 12/05/21 Cefpodoxime Proxetil [Vantin] 100 mg PO Q12H #20 tablet 12/29/21 Cefpodoxime Proxetil [Vantin] 100 mg PO Q12H #20 tablet 10/03/22 - Allergies Allergies/Adverse Reactions: Allergies Allergy/AdvReac Type Severity Reaction Status Date / Time chlorpromazine HCl * Allergy Unknown Verified 11/07/22 21:03 [From Thorazine] droperidol [From Inapsine] Allergy Unknown Verified 07/24/23 21:03 ketorolac tromethamine * Allergy Unknown Verified 11/07/22 21:03 [From Toradol] meperidine HCl * Allergy Unknown Verified 11/07/22 21:03 [From Demerol] metoclopramide HCl * Allergy Unknown Verified 11/07/22 21:03 [From Reglan] morphine Allergy Unknown Verified 11/07/22 21:03 prochlorperazine edisylate * Allergy Unknown Verified 11/07/22 21:03 [From Compazine] prochlorperazine maleate * Allergy Unknown Verified 11/07/22 21:03 [From Compazine] tramadol Allergy Unknown Verified 11/07/22 21:03 [id number] Antimigraine Allergy Unknown Verified 11/07/22 21:03 Agents lorazepam [From Ativan] AdvReac Anxiety Verified 11/07/22 21:03 - Social History Does the pt smoke?: No Smoking Status: Never smoker Does the pt drink ETOH?: No Does the pt have substance abuse?: No - Immunizations Immunizations are current?: Yes Immunizations: TDAP current <10years, Other immun not current - POLST Patient has POLST: No POLST Status: Full Code (Daughter is her DURABLE POWER OF PRIVATE BRANCH EXCHANGE SERVICE ADVISOR. She would like to be full code, but if there is significant cognitive deficits as a result of her illnesses, she wants us to let her go.) PD ED PE NORMAL - Vitals Vital signs reviewed: Yes - General General: Alert and oriented X 3, No acute distress, Well developed/nourished, Other (The patient is sitting in a dark room with sunglasses on but is very alert and talkative and otherwise in no apparent distress.) - HEENT HEENT: Atraumatic, PERRL, EOMI, Moist mucous membranes - Neck Neck: Supple, no meningeal sign - Cardiac Cardiac: RRR, No murmur - Respiratory Respiratory: No respiratory distress, Clear bilaterally - Abdomen Abdomen: Soft, Non tender, Non distended - Derm Derm: Warm and dry - Extremities Extremities: No deformity - Neuro Neuro: Alert and oriented X 3 - Psych Psych: Normal mood, Normal affect Results - Vitals Vitals: Oxygen O2 Source [Without Activity] Room air O2 Source Room air - Labs Labs: Laboratory Tests 11/07/22 21:47 Urine Color YELLOW Urine Clarity CLEAR Urine pH 5.0 Ur Specific [place] 1.025 Urine Protein NEGATIVE Urine Glucose (UA) NEGATIVE Urine Ketones TRACE Urine Occult Blood NEGATIVE Urine Nitrite NEGATIVE Urine Bilirubin NEGATIVE Urine Urobilinogen 0.2 (NORMAL) Ur Leukocyte Esterase NEGATIVE Ur Microscopic Review NOT INDICATED Urine Culture Comments NOT INDICATED PD Medical Decision Making - ED course Complexity details: reviewed results, re-evaluated patient, considered differential, d/w patient ED course: The patient was worked up with urinalysis and treated symptomatically in the emergency department for her migraine. The patient's urinalysis was completely negative and I discussed with her that at this time, there is no indication for restarting antibiotics. I have reviewed her culture and sensitivity from her last UA here about 4 weeks ago, and showed lucas sensitivity. I do not have access to the patient's urinalysis, culture, or sensitivity from her doctor's office in [place], and so I cannot speak to that. I have advised the patient to call her doctor's office if she continues to have dysuria. She is feeling better from the perspective of her migraine and is stable for discharge home. We have discussed the usual indications for return. Departure - Departure Disposition: Home, Self Care Clinical Impression: Dysuria Migraine Qualifiers: Migraine type: unspecified Status migrainosus presence: without status migrainosus Intractability: not intractable Qualified Code(s): G43.909 - Migraine, unspecified, not intractable, without status migrainosus Condition: Stable Instructions: ED Dysuria Uncertain Cause, ED Headache Migraine Comments: Your urinalysis looks fantastic tonight. I reviewed the culture and sensitivity from your urinalysis that was done here a few weeks ago, and the bacteria were sensitive to every antibiotic they were tested against. As such, the antibiotic to been on should have been effective. If you wish, you may call your doctors office tomorrow to find out your culture results from your last urinalysis since they are not available through our system. At this point, however, given your negative urinalysis, there is no evidence of a recurrence of your urinary tract infection this time. You have been treated tonight with sedating medication for your headache. Please do not drive for at least 6 hours. Forms: PCP List Discharge Date/Time: 11/07/22 23:31
[2022-11-07] MEDS: SODIUM CHLORIDE 0.9% 1,000 ML IV STA (22:17)
[2022-11-07] MEDS: ONDANSETRON 4 MG/2 ML VIAL IVP STA (22:17)
[2022-11-07] MEDS: HYDROmorphone 1 MG/ML CARPUJECT IVP STA ×2 (22:17→23:23)
[2022-11-07] MEDS: PROMETHAZINE INJ 25 MG in SODIUM CHLORIDE 0.9% 50 ML IV STA (22:18)
[2022-11-07] MEDS: diphenhydrAMINE INJ 50 MG/ML VIAL IVP STA (22:18)
[2022-11-07 23:36] VITALS: BP 178/76
== END 2022-11-07 23:31 | disposition home or self-care (01) ==
LOC: ED 20:55
DX: R30.0 Dysuria (principal); G43.909 Migraine, unspecified, not intractable, without status migrainosus; I11.0 Hypertensive heart disease with heart failure; I50.9 Heart failure, unspecified; G40.909 Epilepsy, unspecified, not intractable, without status epilepticus; E03.9 Hypothyroidism, unspecified; Z79.899 Other long term (current) drug therapy
CPT/HCPCS: 36415; 81001; 81003; 87086; 96374; 96376; 99283

== ENCOUNTER 2022-12-29 19:02 | Outpatient (CLI) | payer MEDICARE, MEDICAID | END 2022-12-29 23:59 | disposition critical access hospital (66) | LOC: EMS 19:02 | DX: R07.9 Chest pain, unspecified (principal); R06.02 Shortness of breath; R51.9 Headache, unspecified | CPT/HCPCS: A0425; A0427 ==

== ENCOUNTER 2022-12-29 19:27 | Emergency (ER) | payer MEDICARE, MEDICAID ==
--- NOTE | 2022-12-29 19:49 | ED Physician Documentation ---
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 Symptoms began at 5pm She reports she bent over and felt tightness and pressure in her chest that radiated to the shoulder. No nausea or vomiting. No history of similar. She does smoke tobacco. EMS was summoned she took 325 of aspirin and 1 nitro. On presentation in the emergency department she reports she still has some vague chest pain though not as strong. Review of Systems Cardiac: reports: Chest pain / pressure Respiratory: denies: Dyspnea Musculoskeletal: reports: Reviewed and negative Neurologic: reports: Headache Psychiatric: reports: Reviewed and negative PD PAST MEDICAL HISTORY - Past Medical History Cardiovascular: Congestive heart failure, Hypertension Respiratory: Asthma, Shortness of breath Neuro: Migraines, Seizure disorder Endocrine/Autoimmune: HyPOthyroidism GI: None MANAGER PRIMARY CARE: None : Incontinence, Frequency, Kidney stones HEENT: None Psych: Depression, Anxiety, Bipolar disorder Musculoskeletal: Osteoarthritis, Fibromyalgia, Chronic back pain Derm: None - Past Surgical History Past Surgical History: Yes General: Other Ortho: Arthroscopic surgery /MANAGER PRIMARY CARE: section, Hysterectomy, Oophrectomy, Breast reduction HEENT: Tonsil/Adenoidectomy - Present Medications Home Medications: Ambulatory Orders Medication Instructions Recorded Confirmed Celecoxib [CeleBREX] 400 mg PO DAILY 05/12/19 10/03/22 Levothyroxine [Synthroid] 150 mcg ORAL DAILY 05/12/19 10/03/22 Stadol Ns 1 spray NS DAILY PRN 05/12/19 08/30/21 Tamsulosin HCl [Flomax] 0.4 mg PO DAILY 05/12/19 10/03/22 busPIRone [Buspar] 10 mg PO DAILY 08/12/20 10/03/22 ondansetron HCL [Zofran] 8 mg PO Q6HR PRN 08/12/20 10/03/22 Albuterol Sulfate [Proair Hfa 1 - 2 puffs INH Q4H PRN 01/23/21 10/03/22 Inhaler] Divalproex [Rola Taylor] 250 mg PO DAILY 01/23/21 08/30/21 oxyCODONE/ACET 5/325 [Percocet 5 1 tab ORAL Q6HR PRN 01/23/21 10/03/22 mg/325 mg] Butalb/Acetaminophen/Caffeine 2 tab PO Q4HR PRN 08/05/21 10/03/22 [Fioricet 50-300-40 mg Capsule] Cyclobenzaprine [Flexeril] 4 mg PO QID 08/05/21 10/03/22 Escitalopram Oxalate 40 mg PO DAILY 08/05/21 08/30/21 Estrogens, Conjugated [Premarin] 1.25 mg PO DAILY 08/05/21 10/03/22 amLODIPine [Norvasc] 10 mg PO DAILY 08/05/21 10/03/22 Divalproex ER [Depakote ER] 250 mg PO DAILY #14 tablet 08/30/21 10/03/22 Amlodipine Besylate [Norvasc] 10 mg PO DAILY #30 tablet 09/13/21 Escitalopram Oxalate [Lexapro] 40 mg PO DAILY #30 tablet 09/13/21 10/03/22 cephALEXin [Keflex] 500 mg PO QID 5 Days #20 cap 10/15/21 Ondansetron Odt [Zofran] 4 mg TL Q6H PRN #10 tablet 12/05/21 cephALEXin [Keflex] 500 mg PO BID #14 cap 12/05/21 Cefpodoxime Proxetil [Vantin] 100 mg PO Q12H #20 tablet 12/29/21 Cefpodoxime Proxetil [Vantin] 100 mg PO Q12H #20 tablet 10/03/22 - Allergies Allergies/Adverse Reactions: Allergies Allergy/AdvReac Type Severity Reaction Status Date / Time chlorpromazine HCl * Allergy Unknown Verified 12/29/22 19:40 [From Thorazine] droperidol [From Inapsine] Allergy Unknown Verified 12/29/22 19:40 ketorolac tromethamine * Allergy Unknown Verified 12/29/22 19:40 [From Toradol] meperidine HCl * Allergy Unknown Verified 12/29/22 19:40 [From Demerol] metoclopramide HCl * Allergy Unknown Verified 12/29/22 19:40 [From Reglan] morphine Allergy Unknown Verified 12/29/22 19:40 prochlorperazine edisylate * Allergy Unknown Verified 12/29/22 19:40 [From Compazine] prochlorperazine maleate * Allergy Unknown Verified 12/29/22 19:40 [From Compazine] tramadol Allergy Unknown Verified 12/29/22 19:40 [id number] Antimigraine Allergy Unknown Verified 12/29/22 19:40 Agents lorazepam [From Ativan] AdvReac Anxiety Verified 12/29/22 19:40 - Social History Does the pt smoke?: No Smoking Status: Never smoker Does the pt drink ETOH?: No Does the pt have substance abuse?: No - Immunizations Immunizations are current?: Yes Immunizations: TDAP current <10years, Other immun not current - POLST Patient has POLST: No POLST Status: Full Code (Daughter is her DURABLE POWER OF SCREEDMAN/LABORER. She would like to be full code, but if there is significant cognitive deficits as a result of her illnesses, she wants us to let her go.) PD ED PE NORMAL - General General: Alert and oriented X 3, No acute distress. No: Well developed/nourished (obese) - Cardiac Cardiac: RRR, No murmur, Strong equal pulses - Respiratory Respiratory: No respiratory distress, Clear bilaterally - Abdomen Abdomen: Normal bowel sounds, Soft - Back Back: No CVA TTP, No spinal TTP - Derm Derm: Normal color, Warm and dry, No rash - Extremities Extremities: No deformity - Neuro Neuro: Alert and oriented X 3 Eye Opening: Spontaneous Motor: Obeys Commands Verbal: Oriented GCS Score: 15 Results - Vitals Vitals: Vital Signs - 24 hr 12/29/22 12/29/22 19:33 19:36 Temperature 36.9 C Heart Rate 83 Respiratory 18 22 Rate Blood Pressure 156/93 H O2 Saturation 97 Oxygen O2 Source [] Room air O2 Source Room air - EKG (time done) 1938 EKG releavant findings:: EKG personally interpreted by author of this note. Relevant findings are: Rate: Rate (enter#) (78) Rhythm: NSR Java: Normal Intervals: Normal NC. No: Prolonged QT QRS: Normal Ischemia: Q waves (inferior and V2-5) Compare to prior EKG: Changed from prior EKG (Prior EKG 2018.) Computer interpretation: Agree with computer - Labs Labs: Laboratory Tests 12/29/22 12/29/22 19:46 19:46 WBC 12.1 H RBC 4.73 Hgb 13.8 Hct 42.9 MCV 90.7 MCH 29.2 MCHC 32.2 RDW 13.9 Plt Count 276 MPV 9.6 Neut # (Auto) 7.8 H Lymph # (Auto) 3.3 Grady # (Auto) 0.7 Eos # (Auto) 0.3 Baso # (Auto) 0.1 Absolute Nucleated RBC 0.00 Nucleated RBC % 0.0 Sodium 140 Potassium 4.0 Chloride 105 Carbon Dioxide 26 Anion Gap 9.0 BUN 28 H Creatinine 1.7 H Estimated GFR (MDRD) 31 L Glucose 107 H Calcium 9.6 Total Bilirubin 0.2 AST 14 ALT 16 Alkaline Phosphatase 72 Troponin I High Sens 6.3 Total Protein 6.4 Albumin 4.3 Globulin 2.1 Albumin/Globulin Ratio 2.0 Lipase 25 PD Medical Decision Making - ED course Complexity details: reviewed results, re-evaluated patient, d/w patient ED course: 62-year-old female who has a chronic pain syndrome history of obesity and hypertension presents emergency department for evaluation of substernal chest pain that began about 5 PM while she was doing some housework. It did radiate to her shoulder. Some nausea no vomiting. EMS administered 325 of aspirin and 0.4 mg of nitroglycerin. On presentation the emergency department chest pain had started to wane but patient was endorsing a headache. EKG was completed and is interpreted by myself is nonischemic and though since her most recent one in 2018 she has developed some global Q waves in the infer ior and anterior leads. CBC, electrolytes and high-sensitivity troponin were obtained. Per my interpretation she does have some chronic renal insufficiency with a BUN of 28 and creatinine 1.7. Essentially unchanged. Her troponin measured about 2-1/2 to 3 hours after onset of pain was not elevated. Patient does have a heart score of 3 putting her at low risk for MACE. This time she is stable for discharge home. Clinically does not appear to have ACS or NSTEMI. Would recommend close follow-up with her PCP where she should be referred for urgent stress testing The patient requested Dilaudid and Zofran prior to discharge for her headaches which I acquiesced to. Usual emergent return precautions were discussed. Departure - Departure Disposition: Home, Self Care Clinical Impression: Abnormal EKG Chest pain Qualifiers: Chest pain type: unspecified Qualified Code(s): R07.9 - Chest pain, unspecified Condition: Stable Instructions: ED Heart Disease Risk Factors Comments: Anitra you were seen today in the emergency department because she developed some chest pain this evening. Here in the ED we did obtain labs that did not show any acute new or worrisome findings. Your troponin as discussed was not elevated. However given your past medical history you are at higher risk for heart disease. Please call your primary care doctor tomorrow and request urgent referral for cardiac stress testing. You can continue to take a daily 81 mg aspirin. If at any point you develop any new chest pain especially with exertion, or suddenly short of air or have fainting episodes then please return to the ER for repeat evaluation. Forms: PCP List
[2022-12-29 19:55] LABS: BASOPHILS # (AUTO) 0.1 10^3/uL (0.0-0.1); BASOPHILS % (AUTO) 0.5 %; EOSINOPHILS # (AUTO) 0.3 10^3/uL (0.0-0.7); EOSINOPHILS % (AUTO) 2.2 %; HCT - HEMATOCRIT 42.9 % (37.0-47.0); HGB - HEMOGLOBIN 13.8 g/dL (12.0-16.0); LYMPHOCYTES # (AUTO) 3.3 10^3/uL (1.5-3.5); LYMPHOCYTES % (AUTO) 27.2 %; MEAN CORPUSCULAR HEMOGLOBIN 29.2 pg (27.0-31.0); MEAN CORPUSCULAR HGB CONC 32.2 g/dL (32.0-36.0); MEAN CORPUSCULAR VOLUME 90.7 fL (81.0-99.0); MEAN PLATELET VOLUME 9.6 fL (7.9-10.8); MONOCYTES # (AUTO) 0.7 10^3/uL (0.0-1.0); MONOCYTES % (AUTO) 5.6 %; NEUTROPHILS # (AUTO) 7.8 10^3/uL (1.5-6.6); PLT - PLATELET COUNT 276 10^3/uL (130-450); RED BLOOD COUNT 4.73 10^6/uL (4.20-5.40); RED CELL DISTRIBUTION WIDTH 13.9 % (12.0-15.0); WHITE BLOOD COUNT 12.1 x10^3/uL (4.8-10.8)
[2022-12-29 20:11] LABS: ALBUMIN 4.3 g/dL (3.2-5.5); BILIRUBIN,TOTAL 0.2 mg/dL (0.2-1.0); CALCIUM 9.6 mg/dL (8.5-10.3); CREATININE 1.7 mg/dL (0.6-1.3); TOTAL PROTEIN 6.4 g/dL (6.4-8.9)
[2022-12-29 20:13] LABS: TROPONIN I HIGH SENSITIVITY 6.3 ng/L (2.3-14.8)
[2022-12-29] MEDS ORDERED: HYDROmorphone 1 MG/ML CARPUJECT IVP STA (20:30)
[2022-12-29] MEDS ORDERED: ONDANSETRON 4 MG/2 ML VIAL IVP STA (20:30)
--- NOTE | 2022-12-29 20:47 | XRAY Report ---
PROCEDURE: Chest 1 View X-Ray INDICATIONS: Chest Pain TECHNIQUE: One view of the chest was acquired. COMPARISON: 06/07/2018. FINDINGS: Surgical changes and devices: None. Lungs and pleura: No pleural effusions or pneumothorax. Lungs are clear. Mediastinum: Mediastinal contours appear normal. Heart size is enlarged. Bones and chest wall: No suspicious bony lesions. Overlying soft tissues appear unremarkable. IMPRESSION: No acute cardiopulmonary disease. Reviewed by: Bertram Rodriguez MD on 12/29/2022 8:45 PM PDT Approved by: Bertram Rodriguez MD on 12/29/2022 8:45 PM PDT Station ID: [id number]
[2022-12-29 21:09] VITALS: BP 127/86; O2SAT 96
== END 2022-12-29 21:07 | disposition home or self-care (01) ==
LOC: EDUNIT# → ED 19:27
DX: R07.9 Chest pain, unspecified (principal); R94.31 Abnormal electrocardiogram [ECG] [EKG]
CPT/HCPCS: 36415; 71045; 80053; 83690; 84484; 85025; 93005; 96374; 99284; J1170

== ENCOUNTER 2023-01-17 19:37 | Emergency (ER) | payer MEDICARE, MEDICAID ==
[2023-01-17] MEDS ORDERED: HYDROmorphone 1 MG/ML CARPUJECT IM STA (20:16)
[2023-01-17] MEDS ORDERED: ONDANSETRON 4 MG/2 ML VIAL IM STA (20:16)
--- NOTE | 2023-01-17 20:26 | ED Physician Documentation ---
History of Present Illness - Stated complaint Stated Complaint: MIGRAINE - Chief complaint Chief Complaint: Heent - Additonal information Additional information: Missed tenderly crisp she said you used to get along so well but you think, rafa aparicio that was her last time and see if she 62-year-old female here for evaluation of her typical migraine that began about 1 PM. She denies falls trauma or fevers. She has tried her usual medications at home that have included Fioricet Motrin tenacity and and Zofran. No resolution. She has some nausea but no vomiting. Requesting Dilaudid and Zofran. Review of Systems Constitutional: denies: Fever Eyes: reports: Photophobia Throat: reports: Reviewed and negative Cardiac: reports: Reviewed and negative GI: reports: Reviewed and negative Skin: reports: Reviewed and negative Neurologic: reports: Headache PD PAST MEDICAL HISTORY - Past Medical History Cardiovascular: Congestive heart failure, Hypertension Respiratory: Asthma, Shortness of breath Neuro: Migraines, Seizure disorder Endocrine/Autoimmune: HyPOthyroidism GI: None DIGITAL SPECIALIST: None : Incontinence, Frequency, Kidney stones HEENT: None Psych: Depression, Anxiety, Bipolar disorder Musculoskeletal: Osteoarthritis, Fibromyalgia, Chronic back pain Derm: None - Past Surgical History Past Surgical History: Yes General: Other Ortho: Arthroscopic surgery /DIGITAL SPECIALIST: section, Hysterectomy, Oophrectomy, Breast reduction HEENT: Tonsil/Adenoidectomy - Present Medications Home Medications: Ambulatory Orders Medication Instructions Recorded Confirmed Celecoxib [CeleBREX] 400 mg PO DAILY 05/12/19 10/03/22 Levothyroxine [Synthroid] 150 mcg ORAL DAILY 05/12/19 10/03/22 Stadol Ns 1 spray NS DAILY PRN 05/12/19 08/30/21 Tamsulosin HCl [Flomax] 0.4 mg PO DAILY 05/12/19 10/03/22 busPIRone [Buspar] 10 mg PO DAILY 08/12/20 10/03/22 ondansetron HCL [Zofran] 8 mg PO Q6HR PRN 08/12/20 10/03/22 Albuterol Sulfate [Proair Hfa 1 - 2 puffs INH Q4H PRN 01/23/21 10/03/22 Inhaler] Divalproex [Rola Taylor] 250 mg PO DAILY 01/23/21 08/30/21 oxyCODONE/ACET 5/325 [Percocet 5 1 tab ORAL Q6HR PRN 01/23/21 10/03/22 mg/325 mg] Butalb/Acetaminophen/Caffeine 2 tab PO Q4HR PRN 08/05/21 10/03/22 [Fioricet 50-300-40 mg Capsule] Cyclobenzaprine [Flexeril] 4 mg PO QID 08/05/21 10/03/22 Escitalopram Oxalate 40 mg PO DAILY 08/05/21 08/30/21 Estrogens, Conjugated [Premarin] 1.25 mg PO DAILY 08/05/21 10/03/22 amLODIPine [Norvasc] 10 mg PO DAILY 08/05/21 10/03/22 Divalproex ER [Depakote ER] 250 mg PO DAILY #14 tablet 08/30/21 10/03/22 Amlodipine Besylate [Norvasc] 10 mg PO DAILY #30 tablet 09/13/21 Escitalopram Oxalate [Lexapro] 40 mg PO DAILY #30 tablet 09/13/21 10/03/22 cephALEXin [Keflex] 500 mg PO QID 5 Days #20 cap 10/15/21 Ondansetron Odt [Zofran] 4 mg TL Q6H PRN #10 tablet 12/05/21 cephALEXin [Keflex] 500 mg PO BID #14 cap 12/05/21 Cefpodoxime Proxetil [Vantin] 100 mg PO Q12H #20 tablet 12/29/21 Cefpodoxime Proxetil [Vantin] 100 mg PO Q12H #20 tablet 10/03/22 - Allergies Allergies/Adverse Reactions: Allergies Allergy/AdvReac Type Severity Reaction Status Date / Time chlorpromazine HCl * Allergy Unknown Verified 01/17/23 19:52 [From Thorazine] droperidol [From Inapsine] Allergy Unknown Verified 01/17/23 19:52 ketorolac tromethamine * Allergy Unknown Verified 01/17/23 19:52 [From Toradol] meperidine HCl * Allergy Unknown Verified 01/17/23 19:52 [From Demerol] metoclopramide HCl * Allergy Unknown Verified 01/17/23 19:52 [From Reglan] morphine Allergy Unknown Verified 01/17/23 19:52 prochlorperazine edisylate * Allergy Unknown Verified 01/17/23 19:52 [From Compazine] prochlorperazine maleate * Allergy Unknown Verified 01/17/23 19:52 [From Compazine] tramadol Allergy Unknown Verified 01/17/23 19:52 [id number] Antimigraine Allergy Unknown Verified 01/17/23 19:52 Agents lorazepam [From Ativan] AdvReac Anxiety Verified 01/17/23 19:52 - Social History Does the pt smoke?: No Smoking Status: Never smoker Does the pt drink ETOH?: No Does the pt have substance abuse?: No - Immunizations Immunizations are current?: Yes Immunizations: TDAP current <10years, Other immun not current - POLST Patient has POLST: No POLST Status: Full Code (Daughter is her DURABLE POWER OF PRINT FINISHER. She would like to be full code, but if there is significant cognitive deficits as a result of her illnesses, she wants us to let her go.) PD ED PE NORMAL - General General: Alert and oriented X 3, No acute distress, Well developed/nourished - HEENT HEENT: Atraumatic, Moist mucous membranes - Neck Neck: Supple, no meningeal sign, No adenopathy - Cardiac Cardiac: RRR, No murmur - Respiratory Respiratory: No respiratory distress, Clear bilaterally - Derm Derm: Warm and dry - Neuro Neuro: Alert and oriented X 3 Eye Opening: Spontaneous Motor: Obeys Commands Verbal: Oriented GCS Score: 15 Results - Vitals Vitals: Vital Signs - 24 hr 01/17/23 19:48 Temperature 35.7 C L Heart Rate 89 Respiratory 18 Rate Blood Pressure 126/86 H O2 Saturation 97 Oxygen O2 Source [Without Activity] Room air O2 Source Room air PD Medical Decision Making - ED course Complexity details: d/w patient ED course: Here with headache of typical migraine. No fevers falls or trauma. Not sudden onset. Low suspicion for subarachnoid hemorrhage. Clinically not consistent with an encephalitis meningitis. Patient was administered Dilaudid and Zofran on reevaluation markedly better. Discharged home in stable condition follow close with PCP. Departure - Departure Disposition: 01 Home, Self Care Clinical Impression: Migraine Qualifiers: Migraine type: unspecified Status migrainosus presence: without status migrainosus Intractability: not intractable Qualified Code(s): G43.909 - Migraine, unspecified, not intractable, without status migrainosus Condition: Stable Comments: Torsten I am glad that your headache is feeling better. Continue to take your usual medications and follow-up with your primary care provider. Return if your symptoms are worsening. Forms: PCP List
[2023-01-17 21:27] VITALS: BP 127/85; O2SAT 100
== END 2023-01-17 21:19 | disposition home or self-care (01) ==
LOC: ED 19:37
DX: G43.909 Migraine, unspecified, not intractable, without status migrainosus (principal); I10 Essential (primary) hypertension
CPT/HCPCS: 96372; 99283; J1170

== ENCOUNTER 2023-01-31 15:54 | Emergency (ER) | payer MEDICARE, MEDICAID ==
--- NOTE | 2023-01-31 17:00 | XRAY Report ---
PROCEDURE: Shoulder 3 View LT INDICATIONS: fall, limited ROM, pain TECHNIQUE: 3 views of the shoulder were acquired. COMPARISON: None. FINDINGS: Bones: No fractures or dislocations. Moderate acromioclavicular joint and glenohumeral joint osteoar thritic changes are seen. No suspicious bony lesions. Visualized ribs appear intact. Soft tissues: No suspicious soft tissue calcifications. The visualized lungs are within normal limi ts. IMPRESSION: No acute bony abnormality. Moderateleft shoulder joint osteoarthritis. No gross soft tissue abnormality. Reviewed by: Trev Garcia MD on 01/31/2023 4:59 PM PDT Approved by: Trev Garcia MD on 01/31/2023 4:59 PM PDT Station ID: [id number]
[2023-01-31] MEDS ORDERED: HYDROmorphone 1 MG/ML CARPUJECT IM STA (18:13)
--- NOTE | 2023-01-31 18:15 | ED Physician Documentation ---
PD HPI UPPER EXT INJURY - Stated complaint Stated Complaint: L SHOULDER INJ - Chief complaint Chief Complaint: Trauma Ext - History obtained from History obtained from: Patient (2 days ago had a trip and fall hitting her she is in chronic pain management and has [place] at home. Left shoulder on the door frame and has persistent pain there. No other injuries.) PD PAST MEDICAL HISTORY - Past Medical History Cardiovascular: Congestive heart failure, Hypertension Respiratory: Asthma, Shortness of breath Neuro: Migraines, Seizure disorder Endocrine/Autoimmune: HyPOthyroidism GI: None ACCOUNTING REPRESENTATIVE: None : Incontinence, Frequency, Kidney stones HEENT: None Psych: Depression, Anxiety, Bipolar disorder Musculoskeletal: Osteoarthritis, Fibromyalgia, Chronic back pain Derm: None - Past Surgical History Past Surgical History: Yes General: Other Ortho: Arthroscopic surgery /ACCOUNTING REPRESENTATIVE: section, Hysterectomy, Oophrectomy, Breast reduction HEENT: Tonsil/Adenoidectomy - Present Medications Home Medications: Ambulatory Orders Medication Instructions Recorded Confirmed Celecoxib [CeleBREX] 400 mg PO DAILY 05/12/19 10/03/22 Levothyroxine [Synthroid] 150 mcg ORAL DAILY 05/12/19 10/03/22 Stadol Ns 1 spray NS DAILY PRN 05/12/19 08/30/21 Tamsulosin HCl [Flomax] 0.4 mg PO DAILY 05/12/19 10/03/22 busPIRone [Buspar] 10 mg PO DAILY 08/12/20 10/03/22 ondansetron HCL [Zofran] 8 mg PO Q6HR PRN 08/12/20 10/03/22 Albuterol Sulfate [Proair Hfa 1 - 2 puffs INH Q4H PRN 01/23/21 10/03/22 Inhaler] Divalproex [Depakote Dr] 250 mg PO DAILY 01/23/21 08/30/21 oxyCODONE/ACET 5/325 [Percocet 5 1 tab ORAL Q6HR PRN 01/23/21 10/03/22 mg/325 mg] Butalb/Acetaminophen/Caffeine 2 tab PO Q4HR PRN 08/05/21 10/03/22 [Fioricet 50-300-40 mg Capsule] Cyclobenzaprine [Flexeril] 4 mg PO QID 08/05/21 10/03/22 Escitalopram Oxalate 40 mg PO DAILY 08/05/21 08/30/21 Estrogens, Conjugated [Premarin] 1.25 mg PO DAILY 08/05/21 10/03/22 amLODIPine [Norvasc] 10 mg PO DAILY 08/05/21 10/03/22 Divalproex ER [Depakote ER] 250 mg PO DAILY #14 tablet 08/30/21 10/03/22 Amlodipine Besylate [Norvasc] 10 mg PO DAILY #30 tablet 09/13/21 Escitalopram Oxalate [Lexapro] 40 mg PO DAILY #30 tablet 09/13/21 10/03/22 cephALEXin [Keflex] 500 mg PO QID 5 Days #20 cap 10/15/21 Ondansetron Odt [Zofran] 4 mg TL Q6H PRN #10 tablet 12/05/21 cephALEXin [Keflex] 500 mg PO BID #14 cap 12/05/21 Cefpodoxime Proxetil [Vantin] 100 mg PO Q12H #20 tablet 12/29/21 Cefpodoxime Proxetil [Vantin] 100 mg PO Q12H #20 tablet 10/03/22 - Allergies Allergies/Adverse Reactions: Allergies Allergy/AdvReac Type Severity Reaction Status Date / Time chlorpromazine HCl * Allergy Unknown Verified 01/31/23 16:07 [From Thorazine] droperidol [From Inapsine] Allergy Unknown Verified 01/31/23 16:07 ketorolac tromethamine * Allergy Unknown Verified 01/31/23 16:07 [From Toradol] meperidine HCl * Allergy Unknown Verified 01/31/23 16:07 [From Demerol] metoclopramide HCl * Allergy Unknown Verified 01/31/23 16:07 [From Reglan] morphine Allergy Unknown Verified 01/31/23 16:07 prochlorperazine edisylate * Allergy Unknown Verified 01/31/23 16:07 [From Compazine] prochlorperazine maleate * Allergy Unknown Verified 01/31/23 16:07 [From Compazine] tramadol Allergy Unknown Verified 01/31/23 16:07 [id number] Antimigraine Allergy Unknown Verified 01/31/23 16:07 Agents lorazepam [From Ativan] AdvReac Anxiety Verified 01/31/23 16:07 - Social History Does the pt smoke?: No Smoking Status: Never smoker Does the pt drink ETOH?: No Does the pt have substance abuse?: No - Immunizations Immunizations are current?: Yes Immunizations: TDAP current <10years, Other immun not current - POLST Patient has POLST: No POLST Status: Full Code (Daughter is her DURABLE POWER OF SLIP FEEDER. She would like to be full code, but if there is significant cognitive deficits as a result of her illnesses, she wants us to let her go.) PD ED PE NORMAL - Vitals Vital signs reviewed: Yes - General General: Alert and oriented X 3, No acute distress - Extremities Extremities: Other (Mild tenderness over the upper and lateral glenohumeral joint and can abduct to about 90 degrees but no further. Internal and external rotation is painful but she is able to do it.) - Neuro Neuro: Alert and oriented X 3, Normal speech Results - Vitals Vitals: Vital Signs - 24 hr 01/31/23 16:02 Temperature 35 C L Heart Rate 75 Respiratory 16 Rate Blood Pressure 132/79 H O2 Saturation 94 Oxygen O2 Source [Without Activity] Room air O2 Source Room air - Rads (name of study) Three-view x-ray of the left shoulder demonstrates osteoarthritis, no fracture or dislocation. Relevant Findings:: Final report received, EMP independent interpretation of test PD Medical Decision Making - ED course ED course: 62-year-old gentleman wanting some pain medication wanted make sure her shoulder was not dislocated. Both clinically and radiographically it is not. She is administered 2 mg of IM Dilaudid here. Declined home-going pain medications as she is in pain management. Discussed with Departure - Departure Disposition: 01 Home, Self Care Clinical Impression: Contusion of left shoulder Condition: Good Record reviewed to determine appropriate education?: Yes Instructions: ED Contusion Upper Ext Comments: Ice, gentle range of motion exercises. Return for new or worsening symptoms. Follow-up with your physician if not improving in a week.
[2023-01-31 20:27] VITALS: BP 169/101; O2SAT 96
== END 2023-01-31 19:08 | disposition home or self-care (01) ==
LOC: ED 15:54
DX: S40.012A Contusion of left shoulder, initial encounter (principal); W01.198A Fall on same level from slipping, tripping and stumbling with subsequent striking against other object, initial encounter
CPT/HCPCS: 73030; 96372; 99283; 99284; J1170

== ENCOUNTER 2023-03-14 18:01 | Emergency (ER) | payer MEDICARE, MEDICAID ==
[2023-03-14 19:22] LABS: BILIRUBIN,URINE NEGATIVE (NEGATIVE); CLARITY,URINE CLEAR (CLEAR); GLUCOSE, URINE (UA) NEGATIVE (NEGATIVE); KETONES,URINE (UA) NEGATIVE (NEGATIVE); LEUKOCYTE ESTERASE, URINE TRACE (NEGATIVE); NITRITE,URINE NEGATIVE (NEGATIVE); OCCULT BLOOD,URINE MODERATE (NEGATIVE); PROTEIN,URINE NEGATIVE (NEGATIVE); UROBILINOGEN,URINE 0.2 (NORMAL) E.U./dL (NORMAL)
[2023-03-14 19:25] LABS: BACTERIA,URINE Many /HPF (None Seen); SQUAMOUS EPITHELIAL CELL,UR FEW Squamous (<= Few)
[2023-03-14] MEDS ORDERED: HYDROmorphone 1 MG/ML CARPUJECT IM STA ×2 (19:36→21:11)
[2023-03-14] MEDS ORDERED: ONDANSETRON ODT 4 MG TABLET TL STA (19:36)
[2023-03-14] MEDS ORDERED: CEFPODOXIME PROXETIL 100 MG TABLET PO STA (19:36)
--- NOTE | 2023-03-14 19:42 | ED Physician Documentation ---
History of Present Illness - Stated complaint Stated Complaint: /LOWER BACK PX - Chief complaint Chief Complaint: General - Additonal information Additional information: 62-year-old female here for evaluation of her migraines as well as dysuria urgency and frequency. Began having a migraine this morning. No falls or trauma. No fevers. No neck pain or nuchal rigidity. Seen frequently in the ER for migraines typically responds well to Zofran and a single dose of Dilaudid. She has had some nausea but no vomiting. Urinary symptoms are consistent with previous UTIs. Patient reports urinary urgency and frequency as well as a sensa tion of incomplete bladder emptying Review of Systems Constitutional: denies: Fever, Chills Eyes: reports: Photophobia Throat: reports: Reviewed and negative Respiratory: reports: Reviewed and negative : reports: Dysuria, Frequency Skin: reports: Reviewed and negative PD PAST MEDICAL HISTORY - Past Medical History Past Medical History: Yes Cardiovascular: Congestive heart failure, Hypertension Respiratory: Asthma, Shortness of breath Neuro: Migraines, Seizure disorder Endocrine/Autoimmune: HyPOthyroidism GI: None TWIST PACKER: None : Incontinence, Frequency, Kidney stones HEENT: None Psych: Depression, Anxiety, Bipolar disorder Musculoskeletal: Osteoarthritis, Fibromyalgia, Chronic back pain Derm: None - Past Surgical History Past Surgical History: Yes General: Other Ortho: Arthroscopic surgery /TWIST PACKER: section, Hysterectomy, Oophrectomy, Breast reduction HEENT: Tonsil/Adenoidectomy - Present Medications Home Medications: Ambulatory Orders Medication Instructions Recorded Confirmed Celecoxib [CeleBREX] 400 mg PO DAILY 05/12/19 10/03/22 Levothyroxine [Synthroid] 150 mcg ORAL DAILY 05/12/19 10/03/22 Stadol Ns 1 spray NS DAILY PRN 05/12/19 08/30/21 Tamsulosin HCl [Flomax] 0.4 mg PO DAILY 05/12/19 10/03/22 busPIRone [Buspar] 10 mg PO DAILY 08/12/20 10/03/22 ondansetron HCL [Zofran] 8 mg PO Q6HR PRN 08/12/20 10/03/22 Albuterol Sulfate [Proair Hfa 1 - 2 puffs INH Q4H PRN 01/23/21 10/03/22 Inhaler] Divalproex [Rola Taylor] 250 mg PO DAILY 01/23/21 08/30/21 oxyCODONE/ACET 5/325 [Percocet 5 1 tab ORAL Q6HR PRN 01/23/21 10/03/22 mg/325 mg] Butalb/Acetaminophen/Caffeine 2 tab PO Q4HR PRN 08/05/21 10/03/22 [Fioricet 50-300-40 mg Capsule] Cyclobenzaprine [Flexeril] 4 mg PO QID 08/05/21 10/03/22 Escitalopram Oxalate 40 mg PO DAILY 08/05/21 08/30/21 Estrogens, Conjugated [Premarin] 1.25 mg PO DAILY 08/05/21 10/03/22 amLODIPine [Norvasc] 10 mg PO DAILY 08/05/21 10/03/22 Divalproex ER [Depakote ER] 250 mg PO DAILY #14 tablet 08/30/21 10/03/22 Amlodipine Besylate [Norvasc] 10 mg PO DAILY #30 tablet 09/13/21 Escitalopram Oxalate [Lexapro] 40 mg PO DAILY #30 tablet 09/13/21 10/03/22 cephALEXin [Keflex] 500 mg PO QID 5 Days #20 cap 10/15/21 Ondansetron Odt [Zofran] 4 mg TL Q6H PRN #10 tablet 12/05/21 cephALEXin [Keflex] 500 mg PO BID #14 cap 12/05/21 Cefpodoxime Proxetil [Vantin] 100 mg PO Q12H #20 tablet 12/29/21 Cefpodoxime Proxetil [Vantin] 100 mg PO Q12H #20 tablet 10/03/22 Cefpodoxime Proxetil [Vantin] 100 mg PO Q12H #20 tablet 03/14/23 - Allergies Allergies/Adverse Reactions: Allergies Allergy/AdvReac Type Severity Reaction Status Date / Time chlorpromazine HCl * Allergy Unknown Verified 03/14/23 18:06 [From Thorazine] droperidol [From Inapsine] Allergy Unknown Verified 03/14/23 18:06 ketorolac tromethamine * Allergy Unknown Verified 03/14/23 18:06 [From Toradol] meperidine HCl * Allergy Unknown Verified 03/14/23 18:06 [From Demerol] metoclopramide HCl * Allergy Unknown Verified 03/14/23 18:06 [From Reglan] morphine Allergy Unknown Verified 03/14/23 18:06 prochlorperazine edisylate * Allergy Unknown Verified 03/14/23 18:06 [From Compazine] prochlorperazine maleate * Allergy Unknown Verified 03/14/23 18:06 [From Compazine] tramadol Allergy Unknown Verified 03/14/23 18:06 [id number] Antimigraine Allergy Unknown Verified 03/14/23 18:06 Agents lorazepam [From Ativan] AdvReac Anxiety Verified 03/14/23 18:06 - Social History Does the pt smoke?: No Smoking Status: Never smoker Does the pt drink ETOH?: No Does the pt have substance abuse?: No - Immunizations Immunizations are current?: Yes Immunizations: TDAP current <10years, Other immun not current - POLST Patient has POLST: No POLST Status: Full Code (Daughter is her DURABLE POWER OF WEBMASTER. She would like to be full code, but if there is significant cognitive deficits as a result of her illnesses, she wants us to let her go.) PD ED PE NORMAL - General General: Alert and oriented X 3, No acute distress - HEENT HEENT: Atraumatic, PERRL - Neck Neck: Supple, no meningeal sign, No adenopathy - Cardiac Cardiac: RRR, No murmur - Respiratory Respiratory: No respiratory distress, Clear bilaterally - Abdomen Abdomen: Normal bowel sounds, Soft. No: Non tender (Mild suprapubic and right flank tenderness. No guarding or rebound.) - Back Back: No CVA TTP - Derm Derm: Normal color, Warm and dry, No rash - Neuro Neuro: Alert and oriented X 3, vamp cut out worker 2-12 intact Eye Opening: Spontaneous Motor: Obeys Commands Verbal: Oriented GCS Score: 15 Results - Vitals Vitals: Vital Signs - 24 hr 03/14/23 18:06 Temperature 36.8 C Heart Rate 72 Respiratory 18 Rate Blood Pressure 157/84 H O2 Saturation 96 Oxygen O2 Source [Without Activity] Room air O2 Source Room air - Labs Labs: Laboratory Tests 03/14/23 19:09 Urine Color YELLOW Urine Clarity CLEAR Urine pH 6.0 Ur Specific [place] 1.010 Urine Protein NEGATIVE Urine Glucose (UA) NEGATIVE Urine Ketones NEGATIVE Urine Occult Blood MODERATE H Urine Nitrite NEGATIVE Urine Bilirubin NEGATIVE Urine Urobilinogen 0.2 (NORMAL) Ur Leukocyte Esterase TRACE H Urine RBC 6-10 H Urine WBC 6-10 H Ur Squamous Epith Cells FEW Squamous Urine Bacteria Many H Ur Microscopic Review INDICATED Urine Culture Comments INDICATED PD Medical Decision Making - ED course Complexity details: reviewed results, re-evaluated patient, d/w patient ED course: 62-year-old female here for migraine which she has been seen multiple times for before. Mostly right-sided with associated photophobia. Here in the emergency department and responded well to single dose of Zofran and Dilaudid. Patient had also reported that she has had about 2 days urinary urgency frequency and dysuria. UA is consistent with acute cystitis. Given lack of fevers flank pain I have lower suspicion for a sending infection. She was started on Vantin based on last urine sensitivities. Will continue close follow-up with her PCP. The usual emergent return precautions for worsening symptoms was discussed. Departure - Departure Disposition: 01 Home, Self Care Clinical Impression: UTI (urinary tract infection) Qualifiers: Urinary tract infection type: acute cystitis Hematuria presence: without hematuria Qualified Code(s): N30.00 - Acute cystitis without hematuria Migraine Qualifiers: Migraine type: unspecified Status migrainosus presence: without status migrainosus Intractability: not intractable Qualified Code(s): G43.909 - Migraine, unspecified, not intractable, without status migrainosus Condition: Stable Record reviewed to determine appropriate education?: Yes Prescriptions: Cefpodoxime Proxetil [Vantin] 100 mg PO Q12H #20 tablet Comments: Mee you do have a urinary tract infection. I have sent a prescription for Vantin to the [facility] in [place]. Your first dose was given tonight in the ER. You can continue to take your usual regular medications at home. I would expect improved urinary symptoms within about 12 hours of starting the antibiotics though it may take 2 to 3 days. Return to the ER if you are having any new or worsening symptoms despite the antibiotics. Forms: PCP List
[2023-03-14] MEDS ORDERED: HYDROmorphone 1 MG/ML CARPUJECT IVP STA (20:31)
[2023-03-14 21:29] VITALS: BP 129/75; O2SAT 100
== END 2023-03-14 21:24 | disposition home or self-care (01) ==
LOC: ED 18:01
DX: N30.00 Acute cystitis without hematuria (principal); G43.909 Migraine, unspecified, not intractable, without status migrainosus; I10 Essential (primary) hypertension
CPT/HCPCS: 81001; 87086; 87181; 96372; 99283; A9270; J1170; Q0162; 81003

== ENCOUNTER 2023-03-29 17:47 | Emergency (ER) | payer MEDICARE, MEDICAID ==
[2023-03-29] MEDS ORDERED: HYDROmorphone 1 MG/ML CARPUJECT IM STA (18:21)
[2023-03-29] MEDS ORDERED: ONDANSETRON 4 MG/2 ML VIAL IM STA (18:21)
--- NOTE | 2023-03-29 18:37 | ED Physician Documentation ---
PD HPI HEADACHE - Stated complaint Stated Complaint: ASIF,VOMITING - Chief complaint Chief Complaint: Neuro - History obtained from History obtained from: Patient, Family - History of Present Illness Pain level max: 9 Pain level now: 9 Quality: Throbbing, Aching Improved by: Rest, Dark room Worsened by: Light, Noise, Moving Contributing factors: No: Anticoagulated, Possible carbon monoxide, Hypertension Recently seen: Not recently seen - Additional information Additional information: Patient is a 62-year-old female who presents to the emergency department with a migraine headache ongoing for the past week. This is her typical migraine headache. She has had vomiting as well. Usually receives Dilaudid and Zofran. No trauma. No fevers. No chills. Gradual onset, dull, aching. Review of Systems Constitutional: denies: Fever, Chills Nose: denies: Rhinorrhea / runny nose, Congestion Musculoskeletal: denies: Neck pain, Back pain Neurologic: denies: Seizure, Confused, Altered mental status, LOC PD PAST MEDICAL HISTORY - Past Medical History Past Medical History: Yes Cardiovascular: Congestive heart failure, Hypertension Respiratory: Asthma, Shortness of breath Neuro: Migraines, Seizure disorder Endocrine/Autoimmune: HyPOthyroidism GI: None CLINICAL RESOURCE DIRECTOR: None : Incontinence, Frequency, Kidney stones HEENT: None Psych: Depression, Anxiety, Bipolar disorder Musculoskeletal: Osteoarthritis, Fibromyalgia, Chronic back pain Derm: None - Past Surgical History Past Surgical History: Yes General: Other Ortho: Arthroscopic surgery /CLINICAL RESOURCE DIRECTOR: section, Hysterectomy, Oophrectomy, Breast reduction HEENT: Tonsil/Adenoidectomy - Present Medications Home Medications: Ambulatory Orders Medication Instructions Recorded Confirmed Buspirone HCl 10 mg PO DAILY 03/29/23 03/29/23 Butorphanol Tartrate 1 spray INH Q4HR PRN 03/29/23 03/29/23 Divalproex [Depjuan Taylor] 250 mg PO BID 03/29/23 03/29/23 Escitalopram [Lexapro] 20 mg PO DAILY 03/29/23 03/29/23 Fluticasone [Flonase] 1 spray INH BID 03/29/23 03/29/23 Gabapentin [Neurontin] 300 mg PO TID 03/29/23 03/29/23 Hydrocodone/Acetaminophen 1 each PO Q4HR PRN 03/29/23 03/29/23 [Hydrocodone-Acetamin 10-325 mg] Metoprolol Succinate [Toprol Xl] 25 mg PO DAILY 03/29/23 03/29/23 Rosuvastatin Calcium [Crestor] 10 mg PO DAILY 03/29/23 03/29/23 Semaglutide [Ozempic] 0.5 mg SUBQ OAW 03/29/23 03/29/23 amLODIPine [Norvasc] 10 mg PO DAILY 03/29/23 03/29/23 tiZANidine [Zanaflex] 4 mg PO Q8H 03/29/23 03/29/23 - Allergies Allergies/Adverse Reactions: Allergies Allergy/AdvReac Type Severity Reaction Status Date / Time chlorpromazine HCl * Allergy Unknown Verified 03/29/23 18:20 [From Thorazine] droperidol [From Inapsine] Allergy Unknown Verified 03/29/23 18:20 ketorolac tromethamine * Allergy Unknown Verified 03/29/23 18:20 [From Toradol] meperidine HCl * Allergy Unknown Verified 03/29/23 18:20 [From Demerol] metoclopramide HCl * Allergy Unknown Verified 03/29/23 18:20 [From Reglan] morphine Allergy Unknown Verified 03/29/23 18:20 prochlorperazine edisylate * Allergy Unknown Verified 03/29/23 18:20 [From Compazine] prochlorperazine maleate * Allergy Unknown Verified 03/29/23 18:20 [From Compazine] tramadol Allergy Unknown Verified 03/29/23 18:20 [id number] Antimigraine Allergy Unknown Verified 03/29/23 18:20 Agents lorazepam [From Ativan] AdvReac Anxiety Verified 03/29/23 18:20 - Social History Does the pt smoke?: No Smoking Status: Never smoker Does the pt drink ETOH?: No Does the pt have substance abuse?: No - Immunizations Immunizations are current?: Yes Immunizations: TDAP current <10years, Other immun not current - POLST Patient has POLST: No POLST Status: Full Code (Daughter is her DURABLE POWER OF ASSISTANT PUBLIC DEFENDER. She would like to be full code, but if there is significant cognitive deficits as a result of her illnesses, she wants us to let her go.) PD ED PE NORMAL - Vitals Vital signs reviewed: Yes - General General: Alert and oriented X 3, Well developed/nourished, Other (Lying in a darkened room with sunglasses on.) - HEENT HEENT: Moist mucous membranes - Neck Neck: Supple, no meningeal sign - Cardiac Cardiac: RRR, Strong equal pulses - Respiratory Respiratory: No respiratory distress, Clear bilaterally - Derm Derm: Warm and dry - Neuro Neuro: Alert and oriented X 3, control clerk auditing 2-12 intact Eye Opening: Spontaneous Motor: Obeys Commands Verbal: Oriented GCS Score: 15 Results - Vitals Vitals: Vital Signs - 24 hr 03/29/23 03/29/23 18:14 19:04 Temperature 36.8 C Heart Rate 74 64 Respiratory 20 20 Rate Blood Pressure 147/94 H 122/55 L O2 Saturation 95 96 Oxygen O2 Source [Without Activity] Room air O2 Source Room air PD Medical Decision Making - ED course Complexity details: re-evaluated patient, considered differential, d/w patient ED course: Patient was given her usual dosage of Dilaudid and Zofran. Headache resolved. Tolerating p.o. without difficulty. Feels much better and request to go home. Patient counseled regarding signs and symptoms for which I believe and urgent re-evaluation would be necessary. Patient with good understanding of and agreement to plan and is comfortable going home at this time This document was made in part using voice recognition software. While efforts are made to proofread this document, sound alike and grammatical errors may occur. Departure - Departure Disposition: 01 Home, Self Care Clinical Impression: Migraine Qualifiers: Migraine type: unspecified Status migrainosus presence: without status migrainosus Intractability: not intractable Qualified Code(s): G43.909 - Migraine, unspecified, not intractable, without status migrainosus Condition: Good Instructions: ED Headache Migraine Follow-Up: Chino Seth MD [Primary Care Provider] - Comments: Follow-up with your doctor for further care. Please return if you worsen. Plenty of fluids and rest. Forms: PCP List Discharge Date/Time: 03/29/23 19:06
[2023-03-29 19:12] VITALS: BP 122/55; O2SAT 96
== END 2023-03-29 19:06 | disposition home or self-care (01) ==
LOC: ED 17:47
DX: G43.909 Migraine, unspecified, not intractable, without status migrainosus (principal); I11.0 Hypertensive heart disease with heart failure; I50.9 Heart failure, unspecified; E03.9 Hypothyroidism, unspecified; Z79.899 Other long term (current) drug therapy; Z79.84 Long term (current) use of oral hypoglycemic drugs
CPT/HCPCS: 96372; 99283; J1170

== ENCOUNTER 2023-04-10 18:02 | Emergency (ER) | payer MEDICARE, MEDICAID ==
[2023-04-10 18:49] VITALS: BP 119/77; O2SAT 95
[2023-04-10] MEDS ORDERED: ACETAMINOPHEN 1,000 MG/100 ML 1,000 MG/100 ML BAG IV ONE (19:24)
[2023-04-10] MEDS ORDERED: SODIUM CHLORIDE 0.9% 1,000 ML IV STA (19:24)
[2023-04-10] MEDS ORDERED: diphenhydrAMINE INJ 50 MG/ML VIAL IVP STA (19:24)
[2023-04-10] MEDS ORDERED: DROPERIDOL 5 MG/2 ML VIAL IVP STA (19:24)
--- NOTE | 2023-04-10 19:39 | ED Physician Documentation ---
PD HPI HEADACHE - Stated complaint Stated Complaint: ASIF,NAUSEA - Chief complaint Chief Complaint: Neuro - History obtained from History obtained from: Patient - Additional information Additional information: 62-year-old female presents for migraine headache. Patient has numerous presentations for migraine headache, frequently request Dilaudid and Zofran. States home migraine medications not working. Review of Systems Constitutional: denies: Fever, Chills GI: denies: Abdominal Pain, Nausea, Vomiting, Constipation, Diarrhea Neurologic: reports: Headache. denies: Generalized weakness, Focal weakness, Numbness, Syncope, Seizure, Head injury, LOC PD PAST MEDICAL HISTORY - Past Medical History Cardiovascular: Congestive heart failure, Hypertension Respiratory: Asthma, Shortness of breath Neuro: Migraines, Seizure disorder Endocrine/Autoimmune: HyPOthyroidism GI: None INTERIOR DECORATOR: None : Incontinence, Frequency, Kidney stones HEENT: None Psych: Depression, Anxiety, Bipolar disorder Musculoskeletal: Osteoarthritis, Fibromyalgia, Chronic back pain Derm: None - Past Surgical History Past Surgical History: Yes General: Other Ortho: Arthroscopic surgery /INTERIOR DECORATOR: section, Hysterectomy, Oophrectomy, Breast reduction HEENT: Tonsil/Adenoidectomy - Present Medications Home Medications: Ambulatory Orders Medication Instructions Recorded Confirmed Buspirone HCl 10 mg PO DAILY 03/29/23 03/29/23 Butorphanol Tartrate 1 spray INH Q4HR PRN 03/29/23 03/29/23 Divalproex [Rola Taylor] 250 mg PO BID 03/29/23 03/29/23 Escitalopram [Lexapro] 20 mg PO DAILY 03/29/23 03/29/23 Fluticasone [Flonase] 1 spray INH BID 03/29/23 03/29/23 Gabapentin [Neurontin] 300 mg PO TID 03/29/23 03/29/23 Hydrocodone/Acetaminophen 1 each PO Q4HR PRN 03/29/23 03/29/23 [Hydrocodone-Acetamin 10-325 mg] Metoprolol Succinate [Toprol Xl] 25 mg PO DAILY 03/29/23 03/29/23 Rosuvastatin Calcium [Crestor] 10 mg PO DAILY 03/29/23 03/29/23 Semaglutide [Ozempic] 0.5 mg SUBQ OAW 03/29/23 03/29/23 amLODIPine [Norvasc] 10 mg PO DAILY 03/29/23 03/29/23 tiZANidine [Zanaflex] 4 mg PO Q8H 03/29/23 03/29/23 - Allergies Allergies/Adverse Reactions: Allergies Allergy/AdvReac Type Severity Reaction Status Date / Time chlorpromazine HCl * Allergy Unknown Verified 03/29/23 18:20 [From Thorazine] droperidol [From Inapsine] Allergy Unknown Verified 03/29/23 18:20 ketorolac tromethamine * Allergy Unknown Verified 03/29/23 18:20 [From Toradol] meperidine HCl * Allergy Unknown Verified 03/29/23 18:20 [From Demerol] metoclopramide HCl * Allergy Unknown Verified 03/29/23 18:20 [From Reglan] morphine Allergy Unknown Verified 03/29/23 18:20 prochlorperazine edisylate * Allergy Unknown Verified 03/29/23 18:20 [From Compazine] prochlorperazine maleate * Allergy Unknown Verified 03/29/23 18:20 [From Compazine] tramadol Allergy Unknown Verified 03/29/23 18:20 [id number] Antimigraine Allergy Unknown Verified 03/29/23 18:20 Agents lorazepam [From Ativan] AdvReac Anxiety Verified 03/29/23 18:20 - Social History Does the pt smoke?: No Smoking Status: Never smoker Does the pt drink ETOH?: No Does the pt have substance abuse?: No - Immunizations Immunizations are current?: Yes Immunizations: TDAP current <10years, Other immun not current - POLST Patient has POLST: No POLST Status: Full Code (Daughter is her DURABLE POWER OF SHOE HANDLER. She would like to be full code, but if there is significant cognitive deficits as a result of her illnesses, she wants us to let her go.) PD ED PE NORMAL - Vitals Vital signs reviewed: Yes - General General: Alert and oriented X 3, Other (wearing sunglasses) - Neck Neck: Supple, no meningeal sign - Respiratory Respiratory: No respiratory distress - Derm Derm: Normal color, Warm and dry, No rash - Extremities Extremities: No deformity, No tenderness to palpate, Normal ROM s pain, No edema - Neuro Neuro: Alert and oriented X 3, core shaper sides 2-12 intact, No motor deficit, Normal speech - Psych Psych: Normal mood, Normal affect Results - Vitals Vitals: Vital Signs - 24 hr 04/10/23 18:36 Temperature 37 C Heart Rate 86 Respiratory 18 Rate Blood Pressure 119/77 O2 Saturation 95 Oxygen O2 Source [Without Activity] Room air O2 Source Room air PD Medical Decision Making - ED course Complexity details: reviewed old records, reviewed results, re-evaluated patient, considered differential, d/w patient ED course: Patient with migraine headache, reports that this is similar to her usual barometric migraine headaches. She reports allergy to nearly every medication for pain except for Dilaudid. I counseled the patient that I could not order Dilaudid for a typical migraine headache as this will eventually lead to rebound headaches and worsening pain. I offered a migraine cocktail of IV Tylenol, fluids, Benadryl, droperidol. Patient initially said that droperidol would be okay and to "check MyChart" for the rest of the allergies, however she then stated she was allergic to droperidol and was "too afraid" to receive any medications at all for her headache. She stated that she would like to go home and did not want anything further done. Patient signed out AGAINST MEDICAL ADVICE. Departure - Departure Disposition: 07 Against Medical Advice Clinical Impression: Left against medical advice Headache Qualifiers: Headache chronicity pattern: acute headache Intractability: not intractable Condition: Stable Forms: PCP List Discharge Date/Time: 04/10/23 19:50
== END 2023-04-10 19:50 | disposition left against medical advice (07) ==
LOC: ED 18:02
DX: R51.9 Headache, unspecified (principal)
CPT/HCPCS: 99281; 99282

== ENCOUNTER 2023-05-10 14:09 | Emergency (ER) | payer MEDICARE, MEDICAID ==
[2023-05-10 14:32] VITALS: BP 129/66; O2SAT 99
[2023-05-10] MEDS ORDERED: HYDROmorphone 2 MG/ML VIAL IM STA (14:51)
[2023-05-10] MEDS ORDERED: ONDANSETRON ODT 4 MG TABLET TL STA (15:18)
--- NOTE | 2023-05-10 15:43 | ED Physician Documentation ---
PD HPI HEADACHE - Stated complaint Stated Complaint: HEAD PX - Chief complaint Chief Complaint: Heent - History obtained from History obtained from: Patient - Additional information Additional information: Patient is a 62-year-old female presenting for evaluation of a migraine headache that started 2 and half hours ago. She has a long history of migraine headaches and states this feels similar. It is on the right side of her head. She was at rest when it started. She has associated nausea. She was able to take a dose of Zofran before got too bad. She also tried Fioricet without any improvement. She denies that this is any worse than her usual headaches and denies any trauma. Does not take a blood thinner. She reports seeing neurology in the past and has tried other home medications in the past but nothing has really helped her. She states that she usually comes here to get Dilaudid and Zofran and that usually helps. No fevers. No cough or congestion. Denies weakness. Review of Systems Constitutional: denies: Fever Cardiac: denies: Chest pain / pressure Respiratory: denies: Dyspnea GI: reports: Nausea. denies: Abdominal Pain Neurologic: reports: Headache PD PAST MEDICAL HISTORY - Past Medical History Cardiovascular: Congestive heart failure, Hypertension Respiratory: Asthma, Shortness of breath Neuro: Migraines, Seizure disorder Endocrine/Autoimmune: HyPOthyroidism GI: None GEOSPATIAL SCIENTIST: None : Incontinence, Frequency, Kidney stones HEENT: None Psych: Depression, Anxiety, Bipolar disorder Musculoskeletal: Osteoarthritis, Fibromyalgia, Chronic back pain Derm: None - Past Surgical History Past Surgical History: Yes General: Other Ortho: Arthroscopic surgery /GEOSPATIAL SCIENTIST: section, Hysterectomy, Oophrectomy, Breast reduction HEENT: Tonsil/Adenoidectomy - Present Medications Home Medications: Ambulatory Orders Medication Instructions Recorded Confirmed Buspirone HCl 10 mg PO DAILY 03/29/23 03/29/23 Butorphanol Tartrate 1 spray INH Q4HR PRN 03/29/23 03/29/23 Divalproex [Rola Taylor] 250 mg PO BID 03/29/23 03/29/23 Escitalopram [Lexapro] 20 mg PO DAILY 03/29/23 03/29/23 Fluticasone [Flonase] 1 spray INH BID 03/29/23 03/29/23 Gabapentin [Neurontin] 300 mg PO TID 03/29/23 03/29/23 Hydrocodone/Acetaminophen 1 each PO Q4HR PRN 03/29/23 03/29/23 [Hydrocodone-Acetamin 10-325 mg] Metoprolol Succinate [Toprol Xl] 25 mg PO DAILY 03/29/23 03/29/23 Rosuvastatin Calcium [Crestor] 10 mg PO DAILY 03/29/23 03/29/23 Semaglutide [Ozempic] 0.5 mg SUBQ OAW 03/29/23 03/29/23 amLODIPine [Norvasc] 10 mg PO DAILY 03/29/23 03/29/23 tiZANidine [Zanaflex] 4 mg PO Q8H 03/29/23 03/29/23 - Allergies Allergies/Adverse Reactions: Allergies Allergy/AdvReac Type Severity Reaction Status Date / Time chlorpromazine HCl * Allergy Unknown Verified 05/10/23 14:27 [From Thorazine] droperidol [From Inapsine] Allergy Unknown Verified 05/10/23 14:27 ketorolac tromethamine * Allergy Unknown Verified 05/10/23 14:27 [From Toradol] meperidine HCl * Allergy Unknown Verified 05/10/23 14:27 [From Demerol] metoclopramide HCl * Allergy Unknown Verified 05/10/23 14:27 [From Reglan] morphine Allergy Unknown Verified 05/10/23 14:27 prochlorperazine edisylate * Allergy Unknown Verified 05/10/23 14:27 [From Compazine] prochlorperazine maleate * Allergy Unknown Verified 05/10/23 14:27 [From Compazine] tramadol Allergy Unknown Verified 05/10/23 14:27 [id number] Antimigraine Allergy Unknown Verified 05/10/23 14:27 Agents lorazepam [From Ativan] AdvReac Anxiety Verified 03/29/23 18:20 - Social History Does the pt smoke?: No Smoking Status: Never smoker Does the pt drink ETOH?: No Does the pt have substance abuse?: No - Immunizations Immunizations are current?: Yes Immunizations: TDAP current <10years, Other immun not current - POLST Patient has POLST: No POLST Status: Full Code (Daughter is her DURABLE POWER OF HIGHER LEVEL TEACHING ASSISTANT. She would like to be full code, but if there is significant cognitive deficits as a result of her illnesses, she wants us to let her go.) PD ED PE NORMAL - General General: Alert and oriented X 3, No acute distress, Well developed/nourished - HEENT HEENT: Atraumatic, PERRL, EOMI - Neck Neck: Supple, no meningeal sign - Cardiac Cardiac: RRR, Strong equal pulses - Respiratory Respiratory: No respiratory distress, Clear bilaterally - Abdomen Abdomen: Normal bowel sounds, Soft, Non tender, Non distended - Derm Derm: Warm and dry - Extremities Extremities: No edema - Neuro Neuro: Alert and oriented X 3, surgical scrub technologist 2-12 intact, No motor deficit, No sensory deficit, Normal speech Results - Vitals Vitals: Vital Signs - 24 hr 05/10/23 14:17 Temperature 36.4 C L Heart Rate 73 Respiratory 17 Rate Blood Pressure 129/66 O2 Saturation 99 Oxygen O2 Source [Without Activity] Room air O2 Source Room air PD Medical Decision Making - ED course Complexity details: re-evaluated patient, d/w patient ED course: Is a 62-year-old female with a history of migraine headaches presenting for evaluation of a headache today. This feels similar to her prior history of migraines. Normal neuroexam. Patient reports she usually gets relief with Dilaudid and Zofran. She does understand that this is not the usual first-line treatment for headaches but does have multiple allergies and other medication she has tried in the past have not helped her. She was given 2 mg of IM Dilaudid along with an additional dose of Zofran with significant improvement in her symptoms. She feels comfortable going home and getting continued rest. She understands concerning symptoms to return for. Departure - Departure Disposition: 01 Home, Self Care Clinical Impression: Headache Condition: Stable Instructions: ED Headache Migraine Comments: You were given narcotic medications today. Please do not drive or operate any machinery today. Please follow-up with your primary care provider regarding your headaches. If you develop worsening symptoms consider return to the ER. Forms: PCP List Discharge Date/Time: 05/10/23 16:20
== END 2023-05-10 16:20 | disposition home or self-care (01) ==
LOC: ED 14:09
DX: R51.9 Headache, unspecified (principal); I11.0 Hypertensive heart disease with heart failure; I50.9 Heart failure, unspecified; E03.9 Hypothyroidism, unspecified; Z79.899 Other long term (current) drug therapy
CPT/HCPCS: 96372; 99283; J1170; Q0162

== ENCOUNTER 2023-06-03 16:01 | Emergency (ER) | payer MEDICARE, MEDICAID ==
--- NOTE | 2023-06-03 16:37 | ED Physician Documentation ---
PD HPI HEADACHE - Stated complaint Stated Complaint: MIGRAINE/ - Chief complaint Chief Complaint: Neuro - History obtained from History obtained from: Patient, Family - History of Present Illness Timing - onset: Enter time (1230), Today Timing - onset during: Rest Timing - duration: Hours Timing - details: Abrupt onset, Still present Worst headache ever?: No: Worst headache ever? Location: Front Quality: Throbbing Associated symptoms: Nausea. No: Fever, Stiff neck Improved by: Rest, Dark room, Quiet Worsened by: Light, Noise, Moving Contributing factors: No: Anticoagulated, Possible carbon monoxide, Hypertension, Recent illness, Trauma Similar symptoms before: Diagnosis (migraine) Recently seen: Not recently seen - Additional information Additional information: Anitra Can is a 62-year-old female with a history of migraine heada angel and she has frequent headaches. She has been into the emergency department about once or twice per month for the past 2 years for migraine rescue with the main ingredient being Dilaudid. She has multiple allergies including allergies to the usual migraine cocktail. She has allergy to Phenergan Compazine Inapsine Toradol Reglan Demerol morphine Ativan and 5 Ht 1 triptans. She had headache be ginning at 1230 today did not have an aura for this headache. She complains of nausea and head pain. Presents to the room with dark glasses.She indicates that she has a referral to neurology but in order to see neurology for her headaches under her insurance plan she has to fail 3 trials of chronic migraine headache medication. Review of Systems Constitutional: denies: Fever Eyes: reports: Photophobia. denies: Decreased vision Ears: denies: Ear pain Nose: denies: Rhinorrhea / runny nose, Congestion Throat: denies: Sore throat Cardiac: denies: Chest pain / pressure Respiratory: denies: Dyspnea, Cough GI: reports: Nausea. denies: Abdominal Pain : denies: Dysuria, Frequency PD PAST MEDICAL HISTORY - Past Medical History Past Medical History: Yes Cardiovascular: Congestive heart failure, Hypertension Respiratory: Asthma, Shortness of breath Neuro: Migraines, Seizure disorder Endocrine/Autoimmune: HyPOthyroidism GI: None SIGNAL ENGINEER: None : Incontinence, Frequency, Kidney stones HEENT: None Psych: Depression, Anxiety, Bipolar disorder Musculoskeletal: Osteoarthritis, Fibromyalgia, Chronic back pain Derm: None - Past Surgical History Past Surgical History: Yes General: Other Ortho: Arthroscopic surgery /SIGNAL ENGINEER: section, Hysterectomy, Oophrectomy, Breast reduction HEENT: Tonsil/Adenoidectomy - Present Medications Home Medications: Ambulatory Orders Medication Instructions Recorded Confirmed Buspirone HCl 10 mg PO DAILY 03/29/23 03/29/23 Butorphanol Tartrate 1 spray INH Q4HR PRN 03/29/23 03/29/[address] [Depakote Dr] 250 mg PO BID 03/29/23 03/29/23 Escitalopram [Lexapro] 20 mg PO DAILY 03/29/23 03/29/23 Fluticasone [Flonase] 1 spray INH BID 03/29/23 03/29/23 Gabapentin [Neurontin] 300 mg PO TID 03/29/23 03/29/23 Hydrocodone/Acetaminophen 1 each PO Q4HR PRN 03/29/23 03/29/23 [Hydrocodone-Acetamin 10-325 mg] Metoprolol Succinate [Toprol Xl] 25 mg PO DAILY 03/29/23 03/29/23 Rosuvastatin Calcium [Crestor] 10 mg PO DAILY 03/29/23 03/29/23 Semaglutide [Ozempic] 0.5 mg SUBQ OAW 03/29/23 03/29/23 amLODIPine [Norvasc] 10 mg PO DAILY 03/29/23 03/29/23 tiZANidine [Zanaflex] 4 mg PO Q8H 03/29/23 03/29/23 - Allergies Allergies/Adverse Reactions: Allergies Allergy/AdvReac Type Severity Reaction Status Date / Time chlorpromazine HCl * Allergy Unknown Verified 06/03/23 16:13 [From Thorazine] droperidol [From Inapsine] Allergy Unknown Verified 06/03/23 16:13 ketorolac tromethamine * Allergy Unknown Verified 06/03/23 16:13 [From Toradol] meperidine HCl * Allergy Unknown Verified 06/03/23 16:13 [From Demerol] metoclopramide HCl * Allergy Unknown Verified 06/03/23 16:13 [From Reglan] morphine Allergy Unknown Verified 06/03/23 16:13 prochlorperazine edisylate * Allergy Unknown Verified 06/03/23 16:13 [From Compazine] prochlorperazine maleate * Allergy Unknown Verified 06/03/23 16:13 [From Compazine] tramadol Allergy Unknown Verified 06/03/23 16:13 [id number] Antimigraine Allergy Unknown Verified 06/03/23 16:13 Agents lorazepam [From Ativan] AdvReac Anxiety Verified 06/03/23 16:13 - Social History Does the pt smoke?: Yes Smoking Status: Current every day smoker Does the pt drink ETOH?: No Does the pt have substance abuse?: No - Immunizations Immunizations are current?: Yes Immunizations: TDAP current <10years, Other immun not current - POLST Patient has POLST: No POLST Status: Full Code (Daughter is her DURABLE POWER OF PLUMBING AND HEATING MECHANIC. She would like to be full code, but if there is significant cognitive deficits as a result of her illnesses, she wants us to let her go.) PD ED PE NORMAL - Vitals Vital signs reviewed: Yes - General General: Alert and oriented X 3, No acute distress, Well developed/nourished, Other (wearing dark glasses in a darkened room ) - HEENT HEENT: Atraumatic, PERRL, EOMI - Neck Neck: Supple, no meningeal sign, No bony TTP - Cardiac Cardiac: RRR, No murmur - Respiratory Respiratory: No respiratory distress, Clear bilaterally - Abdomen Abdomen: Soft, Non tender - Back Back: No CVA TTP, No spinal TTP - Derm Derm: Normal color, Warm and dry, No rash - Extremities Extremities: No deformity, Normal ROM s pain, No edema - Neuro Neuro: Alert and oriented X 3, customer success manager 2-12 intact, No motor deficit, No sensory deficit, Normal speech Eye Opening: Spontaneous Motor: Obeys Commands Verbal: Oriented GCS Score: 15 - Psych Psych: Normal mood, Normal affect Results - Vitals Vitals: Vital Signs - 24 hr 06/03/23 16:10 Temperature 36.5 C Heart Rate 74 Respiratory 18 Rate Blood Pressure 126/76 O2 Saturation 95 Oxygen O2 Source [Without Activity] Room air O2 Source Room air - Labs Labs: Laboratory Tests 06/03/23 16:10 Urine Color YELLOW Urine Clarity CLEAR Urine pH 5.5 Ur Specific [place] >=1.030 H Urine Protein NEGATIVE Urine Glucose (UA) NEGATIVE Urine Ketones TRACE Urine Occult Blood NEGATIVE Urine Nitrite NEGATIVE Urine Bilirubin NEGATIVE Urine Urobilinogen 0.2 (NORMAL) Ur Leukocyte Esterase TRACE H Urine RBC 0-5 Urine WBC 4-5 Ur Squamous Epith Cells MANY Squamous H Urine Bacteria Few Ur Microscopic Review INDICATED Urine Culture Comments NOT INDICATED PD Medical Decision Making - ED course Complexity details: reviewed old records, reviewed results, re-evaluated patient, considered differential, d/w patient, d/w family ED course: 62-year-old female with chronic intermittent migraine presents today for migraine rescue. Multiple allergies preclude use of the usual migraine cocktail and she is administered Dilaudid Zofran dexamethasone and saline. Departure - Departure Disposition: Home, Self Care Clinical Impression: Migraine Qualifiers: Migraine type: periodic headache syndrome Intractability: not intractable Qualified Code(s): G43.C0 - Periodic headache syndromes in child or adult, not intractable Condition: Stable Instructions: ED Headache Migraine Follow-Up: Chino Seth MD [Primary Care Provider] - Comments: Anitra, today it looks like another migraine headache and my recommendation is to be certain to stay adequately hydrated and to follow-up with her primary care doctor for further trial of migraine prophylaxis and eventual follow-up with neurology.
[2023-06-03 17:36] LABS: BILIRUBIN,URINE NEGATIVE (NEGATIVE); CLARITY,URINE CLEAR (CLEAR); GLUCOSE, URINE (UA) NEGATIVE (NEGATIVE); KETONES,URINE (UA) TRACE mg/dL (NEGATIVE); LEUKOCYTE ESTERASE, URINE TRACE (NEGATIVE); NITRITE,URINE NEGATIVE (NEGATIVE); OCCULT BLOOD,URINE NEGATIVE (NEGATIVE); PH,URINE 5.5 PH (5.0-7.5); PROTEIN,URINE NEGATIVE (NEGATIVE); UROBILINOGEN,URINE 0.2 (NORMAL) E.U./dL (NORMAL)
[2023-06-03] MEDS: SODIUM CHLORIDE 0.9% 1,000 ML IV STA (17:41)
[2023-06-03] MEDS: DEXAMETHASONE 10 MG/ML VIAL IVP STA (17:42)
[2023-06-03] MEDS: HYDROmorphone 1 MG/ML CARPUJECT IVP STA (17:42)
[2023-06-03] MEDS: ONDANSETRON 4 MG/2 ML VIAL IVP STA (17:42)
[2023-06-03 17:51] LABS: BACTERIA,URINE Few /HPF (None Seen); RBC,URINE 0-5 /HPF (0-5); SQUAMOUS EPITHELIAL CELL,UR MANY Squamous (<= Few)
[2023-06-03 19:02] VITALS: BP 132/80; O2SAT 96
== END 2023-06-03 19:00 | disposition home or self-care (01) ==
LOC: ED 16:01
DX: G43.C0 Periodic headache syndromes in child or adult, not intractable (principal); I11.0 Hypertensive heart disease with heart failure; I50.9 Heart failure, unspecified; E03.9 Hypothyroidism, unspecified; F17.200 Nicotine dependence, unspecified, uncomplicated; Z79.899 Other long term (current) drug therapy
CPT/HCPCS: 81001; 96374; 99283; 99284; J1170; 81003; 87086

== ENCOUNTER 2023-07-11 18:23 | Emergency (ER) | payer MEDICARE, MEDICAID ==
[2023-07-11 19:08] LABS: BASOPHILS # (AUTO) 0.1 10^3/uL (0.0-0.1); BASOPHILS % (AUTO) 0.4 %; EOSINOPHILS # (AUTO) 0.4 10^3/uL (0.0-0.7); EOSINOPHILS % (AUTO) 2.7 %; HCT - HEMATOCRIT 45.4 % (37.0-47.0); HGB - HEMOGLOBIN 14.3 g/dL (12.0-16.0); LYMPHOCYTES # (AUTO) 3.3 10^3/uL (1.5-3.5); LYMPHOCYTES % (AUTO) 22.3 %; MEAN CORPUSCULAR HEMOGLOBIN 29.7 pg (27.0-31.0); MEAN CORPUSCULAR HGB CONC 31.5 g/dL (32.0-36.0); MEAN CORPUSCULAR VOLUME 94.2 fL (81.0-99.0); MEAN PLATELET VOLUME 9.5 fL (7.9-10.8); MONOCYTES # (AUTO) 0.8 10^3/uL (0.0-1.0); MONOCYTES % (AUTO) 5.7 %; NEUTROPHILS % (AUTO) 68.2 %; PLT - PLATELET COUNT 278 10^3/uL (130-450); RED BLOOD COUNT 4.82 10^6/uL (4.20-5.40); RED CELL DISTRIBUTION WIDTH 13.7 % (12.0-15.0); WHITE BLOOD COUNT 14.7 x10^3/uL (4.8-10.8)
[2023-07-11 19:21] LABS: ALBUMIN 4.4 g/dL (3.2-5.5); ALBUMIN/GLOBULIN RATIO 1.8 (1.0-2.2); BILIRUBIN,TOTAL 0.2 mg/dL (0.2-1.0); CALCIUM 9.9 mg/dL (8.5-10.3); CREATININE 1.1 mg/dL (0.6-1.3); POTASSIUM 4.7 mmol/L (3.5-4.5); TOTAL PROTEIN 6.8 g/dL (6.4-8.9)
[2023-07-11 20:43] LABS: BILIRUBIN,URINE SMALL (NEGATIVE); GLUCOSE, URINE (UA) NEGATIVE (NEGATIVE); KETONES,URINE (UA) TRACE mg/dL (NEGATIVE); LEUKOCYTE ESTERASE, URINE SMALL (NEGATIVE); NITRITE,URINE NEGATIVE (NEGATIVE); OCCULT BLOOD,URINE NEGATIVE (NEGATIVE); PH,URINE 5.5 PH (5.0-7.5); PROTEIN,URINE NEGATIVE (NEGATIVE); UROBILINOGEN,URINE 0.2 (NORMAL) E.U./dL (NORMAL)
[2023-07-11 20:53] LABS: CLARITY,URINE HAZY (CLEAR)
--- NOTE | 2023-07-11 21:06 | ED Physician Documentation ---
PD HPI ABD PAIN - Stated complaint Stated Complaint: R SIDE PX - Chief complaint Chief Complaint: Abd Pain - History obtained from History obtained from: Patient - Additional information Additional information: HPI from patient. Patient c/o right flank pain, urinary frequency, sensation of incomplete voiding. Symptoms started 3-4 days ago. The flank pain is episodic and without exacerbating/ameliorating factors. Denies fever, recent injury, hematuria. She says she has h/o UTI, kidney stones, pyelonephritis; she notes that many of her symptoms have similar features to these previous diagnoses. Review of Systems Constitutional: denies: Fever, Chills, Sweats GI: reports: Abdominal Pain (right flank), Nausea. denies: Vomiting, Co nstipation, Diarrhea : reports: Frequency. denies: Dysuria Skin: denies: Rash PD PAST MEDICAL HISTORY - Past Medical History Cardiovascular: Congestive heart failure, Hypertension Respiratory: Asthma, Shortness of breath Neuro: Migraines, Seizure disorder Endocrine/Autoimmune: HyPOthyroidism GI: None VOCATIONAL PSYCHOLOGIST: None : Incontinence, Frequency, Kidney stones HEENT: None Psych: Depression, Anxiety, Bipolar disorder Musculoskeletal: Osteoarthritis, Fibromyalgia, Chronic back pain Derm: None - Past Surgical History Past Surgical History: Yes General: Other Ortho: Arthroscopic surgery /VOCATIONAL PSYCHOLOGIST: section, Hysterectomy, Oophrectomy, Breast reduction HEENT: Tonsil/Adenoidectomy - Present Medications Home Medications: Ambulatory Orders Medication Instructions Recorded Confirmed Buspirone HCl 10 mg PO DAILY 03/29/23 03/29/23 Butorphanol Tartrate 1 spray INH Q4HR PRN 03/29/23 03/29/23 Divalproex [Rola Taylor] 250 mg PO BID 03/29/23 03/29/23 Escitalopram [Lexapro] 20 mg PO DAILY 03/29/23 03/29/23 Fluticasone [Flonase] 1 spray INH BID 03/29/23 03/29/23 Gabapentin [Neurontin] 300 mg PO TID 03/29/23 03/29/23 Hydrocodone/Acetaminophen 1 each PO Q4HR PRN 03/29/23 03/29/23 [Hydrocodone-Acetamin 10-325 mg] Metoprolol Succinate [Toprol Xl] 25 mg PO DAILY 03/29/23 03/29/23 Rosuvastatin Calcium [Crestor] 10 mg PO DAILY 03/29/23 03/29/23 Semaglutide [Ozempic] 0.5 mg SUBQ OAW 03/29/23 03/29/23 amLODIPine [Norvasc] 10 mg PO DAILY 03/29/23 03/29/23 tiZANidine [Zanaflex] 4 mg PO Q8H 03/29/23 03/29/23 - Allergies Allergies/Adverse Reactions: Allergies Allergy/AdvReac Type Severity Reaction Status Date / Time chlorpromazine HCl * Allergy Unknown Verified 06/03/23 16:13 [From Thorazine] droperidol [From Inapsine] Allergy Unknown Verified 06/03/23 16:13 ketorolac tromethamine * Allergy Unknown Verified 06/03/23 16:13 [From Toradol] meperidine HCl * Allergy Unknown Verified 06/03/23 16:13 [From Demerol] metoclopramide HCl * Allergy Unknown Verified 06/03/23 16:13 [From Reglan] morphine Allergy Unknown Verified 06/03/23 16:13 prochlorperazine edisylate * Allergy Unknown Verified 06/03/23 16:13 [From Compazine] prochlorperazine maleate * Allergy Unknown Verified 06/03/23 16:13 [From Compazine] tramadol Allergy Unknown Verified 06/03/23 16:13 [id number] Antimigraine Allergy Unknown Verified 06/03/23 16:13 Agents lorazepam [From Ativan] AdvReac Anxiety Verified 06/03/23 16:13 - Social History Does the pt smoke?: Yes Smoking Status: Current every day smoker Does the pt drink ETOH?: No Does the pt have substance abuse?: No - Immunizations Immunizations are current?: Yes Immunizations: TDAP current <10years, Other immun not current - POLST Patient has POLST: No POLST Status: Full Code (Daughter is her DURABLE POWER OF OBGYN NURSE. She would like to be full code, but if there is significant cognitive deficits as a result of her illnesses, she wants us to let her go.) PD ED PE NORMAL - Vitals Vital signs reviewed: Yes - General General: Alert and oriented X 3, No acute distress, Well developed/nourished - Cardiac Cardiac: RRR, No murmur - Respiratory Respiratory: No respiratory distress, Clear bilaterally - Abdomen Abdomen: Soft, Non tender - Back Back: No CVA TTP - Derm Derm: Normal color, Warm and dry, No rash Results - Vitals Vitals: Oxygen O2 Source [] Room air O2 Source Room air - Labs Labs: Laboratory Tests 07/11/23 07/11/23 07/11/23 19:02 19:02 20:30 WBC 14.7 H RBC 4.82 Hgb 14.3 Hct 45.4 MCV 94.2 MCH 29.7 MCHC 31.5 L RDW 13.7 Plt Count 278 MPV 9.5 Neut # (Auto) 10.0 H Lymph # (Auto) 3.3 [place] # (Auto) 0.8 Eos # (Auto) 0.4 Baso # (Auto) 0.1 Absolute Nucleated RBC 0.00 Nucleated RBC % 0.0 Sodium 140 Potassium 4.7 H Chloride 104 Carbon Dioxide 28 Anion Gap 8.0 BUN 33 H Creatinine 1.1 Estimated GFR (MDRD) 50 L Glucose 70 L Calcium 9.9 Total Bilirubin 0.2 AST 12 ALT 15 Alkaline Phosphatase 82 Total Protein 6.8 Albumin 4.4 Globulin 2.4 Albumin/Globulin Ratio 1.8 Lipase 26 Urine Color YELLOW Urine Clarity HAZY Urine pH 5.5 Ur Specific [place] 1.025 Urine Protein NEGATIVE Urine Glucose (UA) NEGATIVE Urine Ketones TRACE Urine Occult Blood NEGATIVE Urine Nitrite NEGATIVE Urine Bilirubin SMALL H Urine Urobilinogen 0.2 (NORMAL) Ur Leukocyte Esterase SMALL H Urine RBC 0-5 Urine WBC 4-5 Ur Squamous Epith Cells MANY Squamous H Urine Crystals 26-50 Ca Oxalate Urine Bacteria Rare Ur Microscopic Review INDICATED Urine Culture Comments NOT INDICATED - Rads (name of study) CT A/P Relevant Findings:: Prelim report reviewed, See rad report PD Medical Decision Making - ED course Complexity details: reviewed results, re-evaluated patient, considered differential, d/w patient ED course: Patient well known to this ED; tommy is [address] [facility] ED visit over past 10 years. This is her [address]th [facility] ED visit over past 12 months and BERE reflects 5 ED visits over past year to other EDs Mild leukocytosis (14.7), mild hyperkalemia (4.7). Mildly elevated BUN (33) with normal creatinine (1.1). normal LFTs, lipase. UA with small LE on macro but unremarkable microscopy except for calcium oxalate crystals. No concerning nor diagnostic findings on CT A/P. There is no evidence on CT nor on UA for kidney stones, UTI/pyelonephritis. Etiology of symptoms not apparent at this time. Results d/w patient, return precautions reviewed. She asks for something for symptoms (nausea, pain), and specifically asks for zofran and dilaudid. I discussed other options with patient but per her allergy list and having tried OTC medications without improvement, options seem limited. She is given 1mg IM dilaudid , 4 mg TL zofran and discharged. Departure - Departure Disposition: Home, Self Care Clinical Impression: Flank pain Condition: Good Instructions: ED Flank Pain Uncertain Cause Comments: There were no particularly concerning nor any diagnostic findings on tonight's tests. As we discussed, your white blood cell count was mildly elevated as was your potassium. However, these are not to a concerning extent. You should mention these abnormalities to your primary care provider, as they might want to repeat blood tests to look for normalization of these values. The CT scan was unremarkable; specifically, there was no evidence of kidney stone nor obstruction of the bladder, ureter, or kidney. Your urinalysis did not have any evidence of urinary tract infection. There were calcium oxalate crystals in the urine, and although these are the most common composition of kidney stones, again there were no findings on the CT scan that demonstrated kidney stones. The cause of your right flank pain is not apparent at this time. Follow-up with your urologist as well as her primary care provider, next available appointments, for reevaluation. Forms: PCP List Discharge Date/Time: 07/11/23 22:04
[2023-07-11 21:13] LABS: BACTERIA,URINE Rare /HPF (None Seen); RBC,URINE 0-5 /HPF (0-5); SQUAMOUS EPITHELIAL CELL,UR MANY Squamous (<= Few)
[2023-07-11 21:14] LABS: CRYSTALS,URINE 26-50 Ca Oxalate /LPF
--- NOTE | 2023-07-11 21:24 | CT Report ---
PROCEDURE: Abdomen/Pelvis WO INDICATIONS: right flank pain TECHNIQUE: A CT scan of the abdomen and pelvis was performed without the use of intravenous contrast. Images we re recorded and evaluated at appropriate window settings. Reformats: coronal and sagittal. For radiat ion dose reduction, the following was used: automated exposure control, adjustment of mA and/or kV ac cording to patient size. COMPARISON: None. FINDINGS: Image quality: Diagnostic. Lower chest: Unremarkable. Liver: No contour-deforming mass. Gallbladder and biliary tree: No radiopaque stones or wall thickening. No biliary dilation. Spleen: No splenomegaly. Pancreas: No pancreatic ductal dilation. Adrenals: No adrenal nodule. Kidneys and ureters: No hydronephrosis. No renal cystic lesion which requires follow up. No solid mas s. No nephrolithiasis. Stomach, bowel and peritoneum: No bowel distension. No pathologic free fluid. Normal appendix. No sig nificant diverticular disease. Lymph nodes: No central or retroperitoneal adenopathy. Vessels: No infrarenal aortic aneurysm. PELVIS Reproductive organs: Unremarkable. Bladder: No wall thickness, accounting for underdistention. Pelvic lymph nodes: No pelvic adenopathy by size criteria. Bones: No aggressive osseous abnormality. Other: No significant ventral or inguinal hernia. IMPRESSION: No hydronephrosis or obstructing renal stone. Normal appendix and gallbladder. Reviewed by: Alfonzo Estrada MD on 07/11/2023 9:23 PM PDT Approved by: Alfonzo Estrada MD on 07/11/2023 9:23 PM PDT Station ID: [id number]
[2023-07-11] MEDS: ONDANSETRON ODT 4 MG TABLET TL STA (21:40)
[2023-07-11] MEDS: HYDROmorphone 1 MG/ML CARPUJECT IM STA (21:41)
[2023-07-11 22:17] VITALS: BP 127/76; O2SAT 94
== END 2023-07-11 22:04 | disposition home or self-care (01) ==
LOC: ED 18:23
DX: R10.9 Unspecified abdominal pain (principal); I11.0 Hypertensive heart disease with heart failure; I50.9 Heart failure, unspecified; E03.9 Hypothyroidism, unspecified; F17.200 Nicotine dependence, unspecified, uncomplicated; Z79.899 Other long term (current) drug therapy
CPT/HCPCS: 36415; 74176; 80053; 81001; 83690; 85025; 96372; 99283; 99284; J1170; Q0162; 81003; 87086

== ENCOUNTER 2023-08-02 18:39 | Emergency (ER) | payer MEDICARE, MEDICAID ==
--- NOTE | 2023-08-02 19:47 | ED Physician Documentation ---
PD HPI UPPER EXT INJURY - Stated complaint Stated Complaint: FALL/R SHOULDER PX - Chief complaint Chief Complaint: Trauma Ext - History obtained from History obtained from: Patient - History of Present Illness Location: Right, Shoulder Type of injury: Fall Where injury occurred: Home - Additonal information Additional information: 62-year-old female with a number of past medical issues as listed below including chronic pain on chronic narcotic therapy, and chronic right shoulder and multiple joint pain presents after a fall at home. She states she is tripped on a area of carpet in her house, and fell straining her right shoulder. She states she does not think it is broken but it is uncomfortable and she is hoping to get additional pain medication tonight. She states she took her [place] as well as tizanidine at home without relief. She denies any other injury during fall, no head injury, no loss of consciousness, no neck pain or back pain. She has been seen in the past for similar issues and states that she can typically only take Dilaudid. She typically takes 2 mg IM. Patient also states that she has a small lesion in her pannus. She noted it a week or so ago when she was bathing. It is not painful though she does not have good sensation in the area but she felt the lesion and thought it looked possibly infected. She has a history of MRSA. She states she has been cleaning it with peroxide and iodine. She is not a fever, no swelling in the area, no other concerns today. Review of Systems Constitutional: reports: Reviewed and negative Eyes: reports: Reviewed and negative Ears: reports: Reviewed and negative Nose: reports: Reviewed and negative Throat: reports: Reviewed and negative Cardiac: reports: Reviewed and negative Respiratory: reports: Reviewed and negative GI: reports: Reviewed and negative : reports: Reviewed and negative Skin: reports: Lesions Musculoskeletal: reports: Joint pain Neurologic: reports: Reviewed and negative Psychiatric: reports: Reviewed and negative PD PAST MEDICAL HISTORY - Past Medical History Past Medical History: Yes Cardiovascular: Congestive heart failure, Hypertension Respiratory: Asthma, Shortness of breath Neuro: Migraines, Seizure disorder Endocrine/Autoimmune: HyPOthyroidism GI: None GROUP SUPERVISOR YARD: None : Incontinence, Frequency, Kidney stones HEENT: None Psych: Depression, Anxiety, Bipolar disorder Musculoskeletal: Osteoarthritis, Fibromyalgia, Chronic back pain Derm: None - Past Surgical History Past Surgical History: Yes General: Other Ortho: Arthroscopic surgery /GROUP SUPERVISOR YARD: section, Hysterectomy, Oophrectomy, Breast reduction HEENT: Tonsil/Adenoidectomy - Present Medications Home Medications: Ambulatory Orders Medication Instructions Recorded Confirmed Buspirone HCl 10 mg PO DAILY 03/29/23 03/29/23 Butorphanol Tartrate 1 spray INH Q4HR PRN 03/29/23 03/29/[address] [Depakote Dr] 250 mg PO BID 03/29/23 03/29/23 Escitalopram [Lexapro] 20 mg PO DAILY 03/29/23 03/29/23 Fluticasone [Flonase] 1 spray INH BID 03/29/23 03/29/23 Gabapentin [Neurontin] 300 mg PO TID 03/29/23 03/29/23 Hydrocodone/Acetaminophen 1 each PO Q4HR PRN 03/29/23 03/29/23 [Hydrocodone-Acetamin 10-325 mg] Metoprolol Succinate [Toprol Xl] 25 mg PO DAILY 03/29/23 03/29/23 Rosuvastatin Calcium [Crestor] 10 mg PO DAILY 03/29/23 03/29/23 Semaglutide [Ozempic] 0.5 mg SUBQ OAW 03/29/23 03/29/23 amLODIPine [Norvasc] 10 mg PO DAILY 03/29/23 03/29/23 tiZANidine [Zanaflex] 4 mg PO Q8H 03/29/23 03/29/23 Mupirocin 2% Oint [Bactroban 2% 1 applic TOP BID #22 gm 08/02/23 Oint] - Allergies Allergies/Adverse Reactions: Allergies Allergy/AdvReac Type Severity Reaction Status Date / Time chlorpromazine HCl * Allergy Unknown Verified 08/02/23 18:43 [From Thorazine] droperidol [From Inapsine] Allergy Unknown Verified 08/02/23 18:43 ketorolac tromethamine * Allergy Unknown Verified 08/02/23 18:43 [From Toradol] meperidine HCl * Allergy Unknown Verified 08/02/23 18:43 [From Demerol] metoclopramide HCl * Allergy Unknown Verified 08/02/23 18:43 [From Reglan] morphine Allergy Unknown Verified 08/02/23 18:43 prochlorperazine edisylate * Allergy Unknown Verified 08/02/23 18:43 [From Compazine] prochlorperazine maleate * Allergy Unknown Verified 08/02/23 18:43 [From Compazine] tramadol Allergy Unknown Verified 08/02/23 18:43 [id number] Antimigraine Allergy Unknown Verified 08/02/23 18:43 Agents lorazepam [From Ativan] AdvReac Anxiety Verified 06/03/23 16:13 - Social History Does the pt smoke?: Yes Smoking Status: Current every day smoker Does the pt drink ETOH?: No Does the pt have substance abuse?: No - Immunizations Immunizations are current?: Yes Immunizations: TDAP current <10years, Other immun not current - POLST Patient has POLST: No POLST Status: Full Code (Daughter is her DURABLE POWER OF DEBT MANAGEMENT COUNSELOR. She would like to be full code, but if there is significant cognitive deficits as a result of her illnesses, she wants us to let her go.) PD ED PE NORMAL - Vitals Vital signs reviewed: Yes - General General: Alert and oriented X 3, No acute distress, Well developed/nourished - HEENT HEENT: Atraumatic, Moist mucous membranes - Neck Neck: Supple, no meningeal sign, No bony TTP - Cardiac Cardiac: RRR, No murmur - Respiratory Respiratory: No respiratory distress, Clear bilaterally - Derm Derm: Normal color, Warm and dry, Other (1 cm round open lesion in the mid lower pannus. There is surrounding erythema, no fluctuance or induration) - Extremities Extremities: No deformity, Other (Pain in the right scapula without obvious deformity, no acute clavicular pain or deformity, patient has good range of motion of the right shoulder) - Neuro Neuro: Alert and oriented X 3 Eye Opening: Spontaneous Motor: Obeys Commands Verbal: Oriented GCS Score: 15 Results - Vitals Vitals: Vital Signs - 24 hr 08/02/23 18:43 Temperature 36.8 C Heart Rate 78 Respiratory 16 Rate Blood Pressure 134/79 H O2 Saturation 98 Oxygen O2 Source [Without Activity] Room air O2 Source Room air - Rads (name of study) No standard instances Relevant Findings:: EMP independent interpretation of test PD Medical Decision Making - ED course Complexity details: reviewed results, d/w patient ED course: 62-year-old female presents with right shoulder pain after fall as described in HPI. Patient has a history of chronic pain is on chronic narcotic therapy but is requesting additional pain management after the fall. We obtained an x-ray which per my read shows no acute dislocation or fracture. The patient appears to have fairly good range of motion on exam. I reviewed prior records and the patient indeed has gone 2 mg of Dilaudid in the past therefore we gave her 2 mg of IM Dilaudid. She was advised to continue home pain regimen though I have requested that she wait 4 hours before her next dose of pain medication. Re commended cool compress, continue follow-up with Ortho for this issue as well as pain management. For her small lesion in the pannus, it appears likely infected but she does not have a cellulitis or abscess at this time. She is advised to continue cleaning as she is, would add mupirocin to this, try to keep it dry and from the other skin if possible. I have reviewed return precautions if this area worsened at all. Patient discharged home in stable condition With a friend who is transporting her. Departure - Departure Disposition: 01 Home, Self Care Clinical Impression: Skin lesion, infected Right shoulder injury Qualifiers: Encounter type: initial encounter Qualified Code(s): S49.91XA - Unspecified injury of right shoulder and upper arm, initial encounter Condition: Good Instructions: ED Sprain Shoulder Prescriptions: Mupirocin 2% Oint [Bactroban 2% Oint] 1 applic TOP BID #22 gm Comments: Please continue follow-up with pain management and orthopedics for your chronic pain. Keep the lesion on your abdomen clean with gentle soap and water, otherwise keep dry. Have prescribed an ointment called mupirocin to apply 3 times a day. If this area worsens, becomes more swollen, tender or you develop a fever, return to the ER. The ointment was sent to your pharmacy. Forms: PCP List
[2023-08-02] MEDS: HYDROmorphone 1 MG/ML CARPUJECT IM STA (20:26)
[2023-08-02 20:47] VITALS: BP 130/80; O2SAT 100
--- NOTE | 2023-08-02 21:11 | XRAY Report ---
PROCEDURE: Shoulder 2+V RT INDICATIONS: shoulder inj TECHNIQUE: 3 views of the shoulder were acquired. COMPARISON: Chest radiograph dated 12/29/2022. FINDINGS: Bones: No definite fractures or dislocations. Severe degenerative changes of the glenohumeral joint. Glenohumeral joint is maintained. Degenerative changes of the AC joint. There are multiple coarse ca lcifications noted at the glenohumeral joint similar to that seen on comparison chest radiograph. Fin dings are suggestive of intra-articular loose bodies. No suspicious bony lesions. Visualized ribs ap pear intact. Soft tissues: No suspicious soft tissue calcifications. The visualized lungs are within normal limi ts. IMPRESSION: Right shoulder without definite fracture. Glenohumeral alignment is maintained. Severe degenerative c hanges of the glenohumeral joint. Moderate degenerative changes of the AC joint. Coarse calcifications projecting near the shoulder suggestive of calcified intra-articular loose bodi es. If there is continued clinical concern for pathology or occult fracture, consider follow-up imaging w ith repeat radiographs in 10-14 days and possible advanced imaging (CT, MRI, bone scan) if symptoms p ersist. . Reviewed by: Zev Kline MD on 08/02/2023 9:10 PM PDT Approved by: Zev Kline MD on 08/02/2023 9:10 PM PDT Station ID: [id number]
== END 2023-08-02 20:37 | disposition home or self-care (01) ==
LOC: ED 18:39
DX: S49.91XA Unspecified injury of right shoulder and upper arm, initial encounter (principal); W01.0XXA Fall on same level from slipping, tripping and stumbling without subsequent striking against object, initial encounter; Y92.009 Unspecified place in unspecified non-institutional (private) residence as the place of occurrence of the external cause; I11.0 Hypertensive heart disease with heart failure; I50.9 Heart failure, unspecified; E03.9 Hypothyroidism, unspecified; F17.200 Nicotine dependence, unspecified, uncomplicated; Z79.899 Other long term (current) drug therapy
CPT/HCPCS: 73030; 96372; 99283; 99284; J1170

== ENCOUNTER 2023-08-19 19:44 | Emergency (ER) | payer MEDICARE, MEDICAID ==
--- NOTE | 2023-08-19 20:12 | ED Physician Documentation ---
PD HPI HEADACHE - Stated complaint Stated Complaint: HEADACHE - Chief complaint Chief Complaint: Neuro - History obtained from History obtained from: Patient - Additional information Additional information: 62-year-old woman with chronic recurrent migraines has somewhat frequent emergency department use for same and developed a gradual onset headache yesterday with aura consistent with prior episodes of migraine. There is no fever or neck stiffness with it. Has been taking Fioricet at home without relief. She is very light sensitive and somewhat nauseous. 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 FUNERALS: None : Incontinence, Frequency, Kidney stones HEENT: None Psych: Depression, Anxiety, Bipolar disorder Musculoskeletal: Osteoarthritis, Fibromyalgia, Chronic back pain Derm: None - Past Surgical History Past Surgical History: Yes General: Other Ortho: Arthroscopic surgery /SALES MANAGER PREARRANGED FUNERALS: section, Hysterectomy, Oophrectomy, Breast reduction HEENT: Tonsil/Adenoidectomy - Present Medications Home Medications: Ambulatory Orders Medication Instructions Recorded Confirmed Buspirone HCl 10 mg PO DAILY 03/29/23 03/29/23 Butorphanol Tartrate 1 spray INH Q4HR PRN 03/29/23 03/29/23 Divalproex [Rola Taylor] 250 mg PO BID 03/29/23 03/29/23 Escitalopram [Lexapro] 20 mg PO DAILY 03/29/23 03/29/23 Fluticasone [Flonase] 1 spray INH BID 03/29/23 03/29/23 Gabapentin [Neurontin] 300 mg PO TID 03/29/23 03/29/23 Hydrocodone/Acetaminophen 1 each PO Q4HR PRN 03/29/23 03/29/23 [Hydrocodone-Acetamin 10-325 mg] Metoprolol Succinate [Toprol Xl] 25 mg PO DAILY 03/29/23 03/29/23 Rosuvastatin Calcium [Crestor] 10 mg PO DAILY 03/29/23 03/29/23 Semaglutide [Ozempic] 0.5 mg SUBQ OAW 03/29/23 03/29/23 amLODIPine [Norvasc] 10 mg PO DAILY 03/29/23 03/29/23 tiZANidine [Zanaflex] 4 mg PO Q8H 03/29/23 03/29/23 Mupirocin 2% Oint [Bactroban 2% 1 applic TOP BID #22 gm 08/02/23 Oint] - Allergies Allergies/Adverse Reactions: Allergies Allergy/AdvReac Type Severity Reaction Status Date / Time chlorpromazine HCl * Allergy Unknown Verified 08/19/23 19:53 [From Thorazine] droperidol [From Inapsine] Allergy Unknown Verified 08/19/23 19:53 ketorolac tromethamine * Allergy Unknown Verified 08/19/23 19:53 [From Toradol] meperidine HCl * Allergy Unknown Verified 08/19/23 19:53 [From Demerol] metoclopramide HCl * Allergy Unknown Verified 08/19/23 19:53 [From Reglan] morphine Allergy Unknown Verified 08/19/23 19:53 prochlorperazine edisylate * Allergy Unknown Verified 08/19/23 19:53 [From Compazine] prochlorperazine maleate * Allergy Unknown Verified 08/19/23 19:53 [From Compazine] tramadol Allergy Unknown Verified 08/19/23 19:53 [id number] Antimigraine Allergy Unknown Verified 08/19/23 19:53 Agents lorazepam [From Ativan] AdvReac Anxiety Verified 06/03/23 16:13 - Social History Does the pt smoke?: Yes Smoking Status: Current every day smoker Does the pt drink ETOH?: No Does the pt have substance abuse?: No - Immunizations Immunizations are current?: Yes Immunizations: TDAP current <10years, Other immun not current - POLST Patient has POLST: No POLST Status: Full Code (Daughter is her DURABLE POWER OF PATIENT DAY COORDINATOR. She would like to be full code, but if there is significant cognitive deficits as a result of her illnesses, she wants us to let her go.) PD ED PE NORMAL - Vitals Vital signs reviewed: Yes - General General: Alert and oriented X 3, Other (Appears uncomfortable and light sensitive) - Neck Neck: Supple, no meningeal sign - Neuro Neuro: Alert and oriented X 3, gluing machine offbearer 2-12 intact Eye Opening: Spontaneous Motor: Obeys Commands Verbal: Oriented GCS Score: 15 - Psych Psych: Normal mood, Normal affect Results - Vitals Vitals: Vital Signs - 24 hr 08/19/23 19:53 Temperature 36.8 C Heart Rate 69 Respiratory 16 Rate Blood Pressure 120/61 O2 Saturation 96 Oxygen O2 Source [Without Activity] Room air O2 Source Room air PD Medical Decision Making - ED course ED course: The headache is gradual in onset and similar to prior headaches. As such I doubt subarachnoid hemorrhage. There are no infectious symptoms such as fever or stiff neck to make me suspect meningitis. No carbon monoxide exposure by history. Per her request she was administered 2 mg of IM Dilaudid and 4 mg of IM Zofran. Departure - Departure Disposition: 01 Home, Self Care Clinical Impression: Migraine Condition: Stable Instructions: ED Headache Migraine Comments: Call your doctor to arrange a follow-up appointment, make the next available appointment. In the interim, return anytime if worse or if new symptoms develop.
[2023-08-19] MEDS: ONDANSETRON 4 MG/2 ML VIAL IM STA (20:28)
[2023-08-19] MEDS: HYDROmorphone 1 MG/ML CARPUJECT IM STA (20:28)
[2023-08-19 21:05] VITALS: BP 126/93; O2SAT 95
== END 2023-08-19 21:09 | disposition home or self-care (01) ==
LOC: ED 19:44
DX: G43.909 Migraine, unspecified, not intractable, without status migrainosus (principal); I11.0 Hypertensive heart disease with heart failure; I50.9 Heart failure, unspecified; J45.909 Unspecified asthma, uncomplicated; E03.9 Hypothyroidism, unspecified; M79.7 Fibromyalgia; Z87.442 Personal history of urinary calculi; Z79.899 Other long term (current) drug therapy; F17.200 Nicotine dependence, unspecified, uncomplicated
CPT/HCPCS: 96372; 99283; J1170

== ENCOUNTER 2023-08-31 18:41 | Emergency (ER) | payer MEDICARE, MEDICAID ==
[2023-08-31 18:53] VITALS: BP 113/63; O2SAT 99
[2023-08-31] MEDS: HYDROmorphone 1 MG/ML CARPUJECT IM STA (19:28)
[2023-08-31] MEDS: ONDANSETRON 4 MG/2 ML VIAL IM STA (19:28)
--- NOTE | 2023-08-31 19:46 | ED Physician Documentation ---
PD HPI HEADACHE - Stated complaint Stated Complaint: MIGRAINE - Chief complaint Chief Complaint: Heent - History obtained from History obtained from: Patient, Family - History of Present Illness Timing - onset: Today Timing - onset during: Rest Timing - duration: Days (1) Timing - details: Gradual onset Pain level max: 9 Pain level now: 9 Location: Global Quality: Throbbing, Aching Associated symptoms: Nausea, Vomiting. No: Fever, Stiff neck, Weakness, Numbness, Syncope, Seizure Improved by: Rest, Dark room Worsened by: Light, Noise, Moving Contributing factors: No: Anticoagulated - Additional information Additional information: 62-year-old female presents to the emergency department for headache that started today. Has a longstanding history of migraine headaches. She states that this feels similar to her usual migraine headache. Usually receives 2 mg of IM Dilaudid for the headache. Has had nausea and vomiting as well. Tried to take Zofran without relief. 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 CASHIER: None : Incontinence, Frequency, Kidney stones HEENT: None Psych: Depression, Anxiety, Bipolar disorder Musculoskeletal: Osteoarthritis, Fibromyalgia, Chronic back pain Derm: None - Past Surgical History Past Surgical History: Yes General: Other Ortho: Arthroscopic surgery /CAFETERIA CASHIER: section, Hysterectomy, Oophrectomy, Breast reduction HEENT: Tonsil/Adenoidectomy - Present Medications Home Medications: Ambulatory Orders Medication Instructions Recorded Confirmed Buspirone HCl 10 mg PO DAILY 03/29/23 03/29/23 Butorphanol Tartrate 1 spray INH Q4HR PRN 03/29/23 03/29/23 Divalproex [Rola Taylor] 250 mg PO BID 03/29/23 03/29/23 Escitalopram [Lexapro] 20 mg PO DAILY 03/29/23 03/29/23 Fluticasone [Flonase] 1 spray INH BID 03/29/23 03/29/23 Gabapentin [Neurontin] 300 mg PO TID 03/29/23 03/29/23 Hydrocodone/Acetaminophen 1 each PO Q4HR PRN 03/29/23 03/29/23 [Hydrocodone-Acetamin 10-325 mg] Metoprolol Succinate [Toprol Xl] 25 mg PO DAILY 03/29/23 03/29/23 Rosuvastatin Calcium [Crestor] 10 mg PO DAILY 03/29/23 03/29/23 Semaglutide [Ozempic] 0.5 mg SUBQ OAW 03/29/23 03/29/23 amLODIPine [Norvasc] 10 mg PO DAILY 03/29/23 03/29/23 tiZANidine [Zanaflex] 4 mg PO Q8H 03/29/23 03/29/23 Mupirocin 2% Oint [Bactroban 2% 1 applic TOP BID #22 gm 08/02/23 Oint] - Allergies Allergies/Adverse Reactions: Allergies Allergy/AdvReac Type Severity Reaction Status Date / Time chlorpromazine HCl * Allergy Unknown Verified 08/31/23 18:52 [From Thorazine] droperidol [From Inapsine] Allergy Unknown Verified 08/31/23 18:52 ketorolac tromethamine * Allergy Unknown Verified 08/31/23 18:52 [From Toradol] meperidine HCl * Allergy Unknown Verified 08/31/23 18:52 [From Demerol] metoclopramide HCl * Allergy Unknown Verified 08/31/23 18:52 [From Reglan] morphine Allergy Unknown Verified 08/31/23 18:52 prochlorperazine edisylate * Allergy Unknown Verified 08/31/23 18:52 [From Compazine] prochlorperazine maleate * Allergy Unknown Verified 08/31/23 18:52 [From Compazine] tramadol Allergy Unknown Verified 08/31/23 18:52 [id number] Antimigraine Allergy Unknown Verified 08/31/23 18:52 Agents lorazepam [From Ativan] AdvReac Anxiety Verified 06/03/23 16:13 - Social History Does the pt smoke?: Yes Smoking Status: Current every day smoker Does the pt drink ETOH?: No Does the pt have substance abuse?: No - Immunizations Immunizations are current?: Yes Immunizations: TDAP current <10years, Other immun not current - POLST Patient has POLST: No POLST Status: Full Code (Daughter is her DURABLE POWER OF POWER TOOL REPAIR TECHNICIAN. She would like to be full code, but if there is significant cognitive deficits as a result of her illnesses, she wants us to let her go.) PD ED PE NORMAL - Vitals Vital signs reviewed: Yes - General General: Alert and oriented X 3, No acute distress - HEENT HEENT: Atraumatic, PERRL, EOMI, Moist mucous membranes - Neck Neck: Supple, no meningeal sign - Cardiac Cardiac: RRR - Respiratory Respiratory: No respiratory distress, Clear bilaterally - Abdomen Abdomen: Soft, Non tender, Non distended - Derm Derm: Warm and dry - Neuro Neuro: Alert and oriented X 3, reinsurance accountant 2-12 intact, No motor deficit, No sensory deficit, Normal speech Eye Opening: Spontaneous Motor: Obeys Commands Verbal: Oriented GCS Score: 15 - Psych Psych: Normal mood, Normal affect Results - Vitals Vitals: Vital Signs - 24 hr 08/31/23 18:47 Temperature 36.4 C L Heart Rate 72 Respiratory 16 Rate Blood Pressure 113/63 O2 Saturation 99 Oxygen O2 Source [Without Activity] Room air O2 Source Room air PD Medical Decision Making - ED course Complexity details: re-evaluated patient, considered differential, d/w patient ED course: Patient with her usual migraine headache. Given Dilaudid and Zofran. Headache greatly improved. She is requesting to go home at this time. No trauma. No indication for head CT. No indication for further workup at this time. No red flags. Patient counseled regarding signs and symptoms for which I believe and urgent re-evaluation would be necessary. Patient with good understanding of and agreement to plan and is comfortable going home at this time This document was made in part using voice recognition software. While efforts are made to proofread this document, sound alike and grammatical errors may occur. Departure - Departure Disposition: 01 Home, Self Care Clinical Impression: Migraine Qualifiers: Migraine type: unspecified Status migrainosus presence: without status migrainosus Intractability: not intractable Qualified Code(s): G43.909 - Migraine, unspecified, not intractable, without status migrainosus Condition: Good Instructions: ED Headache Migraine Follow-Up: Chino Seth MD [Primary Care Provider] - Within 1 week Comments: Please follow-up with your doctor for further care. Please return if you worsen. You were given Dilaudid and Zofran tonight. Forms: PCP List Discharge Date/Time: 08/31/23 20:11
== END 2023-08-31 20:11 | disposition home or self-care (01) ==
LOC: ED 18:41
DX: G43.909 Migraine, unspecified, not intractable, without status migrainosus (principal); I11.0 Hypertensive heart disease with heart failure; I50.9 Heart failure, unspecified; F17.200 Nicotine dependence, unspecified, uncomplicated
CPT/HCPCS: 96372; 99283; J1170

== ENCOUNTER 2023-09-26 14:17 | Emergency (ER) | payer MEDICARE, MEDICAID ==
[2023-09-26 14:45] VITALS: O2SAT 96
--- NOTE | 2023-09-26 17:15 | ED Physician Documentation ---
PD HPI HEADACHE - Stated complaint Stated Complaint: ASIF - Chief complaint Chief Complaint: Neuro - History obtained from History obtained from: Patient PD PAST MEDICAL HISTORY - Past Medical History Past Medical History: Yes Cardiovascular: Congestive heart failure, Hypertension Respiratory: Asthma, Shortness of breath Neuro: Headaches, Migraines, Seizure disorder Endocrine/Autoimmune: HyPOthyroidism GI: None CITY SUPERVISOR: None : Incontinence, Frequency, Kidney stones HEENT: None Psych: Depression, Anxiety, Bipolar disorder Musculoskeletal: Osteoarthritis, Fibromyalgia, Chronic back pain Derm: None - Past Surgical History Past Surgical History: Yes General: Other Ortho: Arthroscopic surgery /CITY SUPERVISOR: section, Hysterectomy, Oophrectomy, Breast reduction HEENT: Tonsil/Adenoidectomy - Present Medications Home Medications: Ambulatory Orders Medication Instructions Recorded Confirmed Buspirone HCl 10 mg PO BID 03/29/23 09/26/23 Butorphanol Tartrate 1 spray INH Q4HR PRN 03/29/23 09/26/[address] [Depakokandace Dr] 250 mg PO BID 03/29/23 09/26/23 Escitalopram [Lexapro] 40 mg PO DAILY 03/29/23 09/26/23 Fluticasone [Flonase] 1 spray INH BID 03/29/23 09/26/23 Gabapentin [Neurontin] 300 mg PO TID 03/29/23 09/26/23 Hydrocodone/Acetaminophen 1 each PO Q4HR PRN 03/29/23 09/26/23 [Hydrocodone-Acetamin 10-325 mg] Metoprolol Succinate [Toprol Xl] 25 mg PO DAILY 03/29/23 09/26/23 Rosuvastatin Calcium [Crestor] 10 mg PO DAILY 03/29/23 09/26/23 amLODIPine [Norvasc] 10 mg PO DAILY 03/29/23 09/26/23 tiZANidine [Zanaflex] 4 mg PO Q8H 03/29/23 09/26/23 Levothyroxine Sodium [Unithroid] 150 mcg PO DAILY 09/26/23 09/26/23 - Allergies Allergies/Adverse Reactions: Allergies Allergy/AdvReac Type Severity Reaction Status Date / Time chlorpromazine HCl * Allergy Unknown Verified 09/26/23 14:34 [From Thorazine] droperidol [From Inapsine] Allergy Unknown Verified 09/26/23 14:34 ketorolac tromethamine * Allergy Unknown Verified 09/26/23 14:34 [From Toradol] meperidine HCl * Allergy Unknown Verified 09/26/23 14:34 [From Demerol] metoclopramide HCl * Allergy Unknown Verified 09/26/23 14:34 [From Reglan] morphine Allergy Unknown Verified 09/26/23 14:34 prochlorperazine edisylate * Allergy Unknown Verified 09/26/23 14:34 [From Compazine] prochlorperazine maleate * Allergy Unknown Verified 09/26/23 14:34 [From Compazine] tramadol Allergy Unknown Verified 09/26/23 14:34 [id number] Antimigraine Allergy Unknown Verified 09/26/23 14:34 Agents lorazepam [From Ativan] AdvReac Anxiety Verified 09/26/23 14:34 - Social History Does the pt smoke?: Yes Smoking Status: Current every day smoker Does the pt drink ETOH?: No Does the pt have substance abuse?: No - Immunizations Immunizations are current?: Yes Immunizations: TDAP current <10years, Other immun not current - POLST Patient has POLST: No POLST Status: Full Code (Daughter is her DURABLE POWER OF MACHINE TOOL MECHANIC. She would like to be full code, but if there is significant cognitive deficits as a result of her illnesses, she wants us to let her go.) Results - Vitals Vitals: Oxygen O2 Source [Without Activity] Room air O2 Source Room air PD Medical Decision Making - ED course Complexity details: considered differential, d/w patient ED course: the patient did express gladness that I was seeing her as opposed to other provider in ER currently, as the other one had been "mean" on prior ED visit. I conveyed that the patients typically do not get to ask for preferential providers given staffing and time of day, etc. so to not be expecting to select providers. Also I asked that the patient have social florencio enough to not bad- mouth my partners and staff dirctly to me (entitile to her opinions of provider and staff, and poiteness might be to keep those opinions to herself with of course the option to use established methods for feedback - patient satisfaction forms, adminsitration, letters to Quality, etc, but other ER staff is not the forum for bad-mouthing others). I asked the patient what her symptoms were and how we could help her, and that redirected the conversation to more fruitful path. She is having typical migraine symptoms with higher intensity than usual, though not the worst ASIF. She does have multiple allergies and sensitivities that hindder using common migraine pathway medications. She is able to take Phenergan and Zofran, so can give IM promethazine. Will add dilaudid as welll, since not many options from her allergy list. She states the med combination usual works adequately and she does best to head home soon after meds rather than waiting for full effectiveness here in ED. She was kept in ED long enough after meds to ensure no initial side effects/reaction and thenw as discahrged. Departure - Departure Disposition: 01 Home, Self Care Clinical Impression: Migraine headache Condition: Stable Record reviewed to determine appropriate education?: Yes Instructions: ED Headache Migraine Follow-Up: Chino Seth MD [Primary Care Provider] - Comments: Home and rest. Stay well-hydrated. Continue usual medications. Return to the ER if needed. Follow-up with your primary care. For future visits, the most important thing for your treatment is to focus on your current symptoms etc. in discussion with your care providers. Forms: PCP List Discharge Date/Time: 09/26/23 18:46
[2023-09-26] MEDS: HYDROmorphone 2 MG/ML VIAL IM STA (18:13)
[2023-09-26] MEDS: PROMETHAZINE 25 MG/1 ML VIAL IM STA (18:14)
[2023-09-26] MEDS: ONDANSETRON 4 MG/2 ML VIAL IM STA (18:16)
[2023-09-26 18:54] VITALS: BP 167/110
== END 2023-09-26 18:46 | disposition home or self-care (01) ==
LOC: ED 14:17
DX: G43.009 Migraine without aura, not intractable, without status migrainosus (principal); I11.0 Hypertensive heart disease with heart failure; I50.9 Heart failure, unspecified; J45.909 Unspecified asthma, uncomplicated; E03.9 Hypothyroidism, unspecified; M79.7 Fibromyalgia; Z79.899 Other long term (current) drug therapy; F17.200 Nicotine dependence, unspecified, uncomplicated
CPT/HCPCS: 96374; 96375; 99283; J1170

== ENCOUNTER 2023-11-05 13:55 | Emergency (ER) | payer MEDICARE, MEDICAID ==
[2023-11-05 14:39] LABS: BASOPHILS # (AUTO) 0.1 10^3/uL (0.0-0.1); BASOPHILS % (AUTO) 0.6 %; EOSINOPHILS # (AUTO) 0.3 10^3/uL (0.0-0.7); EOSINOPHILS % (AUTO) 3.1 %; HCT - HEMATOCRIT 43.3 % (37.0-47.0); HGB - HEMOGLOBIN 13.9 g/dL (12.0-16.0); LYMPHOCYTES # (AUTO) 2.4 10^3/uL (1.5-3.5); LYMPHOCYTES % (AUTO) 27.6 %; MEAN CORPUSCULAR HEMOGLOBIN 29.1 pg (27.0-31.0); MEAN CORPUSCULAR HGB CONC 32.1 g/dL (32.0-36.0); MEAN CORPUSCULAR VOLUME 90.8 fL (81.0-99.0); MEAN PLATELET VOLUME 9.7 fL (7.9-10.8); MONOCYTES # (AUTO) 0.6 10^3/uL (0.0-1.0); MONOCYTES % (AUTO) 6.5 %; NEUTROPHILS # (AUTO) 5.5 10^3/uL (1.5-6.6); PLT - PLATELET COUNT 272 10^3/uL (130-450); RED BLOOD COUNT 4.77 10^6/uL (4.20-5.40); RED CELL DISTRIBUTION WIDTH 13.9 % (12.0-15.0); WHITE BLOOD COUNT 8.8 x10^3/uL (4.8-10.8)
[2023-11-05 14:52] LABS: ALBUMIN 4.3 g/dL (3.2-5.5); BILIRUBIN,TOTAL 0.3 mg/dL (0.2-1.0); CALCIUM 9.6 mg/dL (8.5-10.3); CREATININE 0.7 mg/dL (0.6-1.3); POTASSIUM 3.9 mmol/L (3.5-4.5); TOTAL PROTEIN 6.4 g/dL (6.4-8.9)
--- NOTE | 2023-11-05 16:40 | ED Physician Documentation ---
PD HPI HEADACHE - Stated complaint Stated Complaint: , ASIF - Chief complaint Chief Complaint: General - History obtained from History obtained from: Patient - Additional information Additional information: This is a 63-year-old woman with frequent migraines. Unfortunately she is allergic to most of the routine therapies we do use for migraines. Developed her usual gradual onset headache around 530 this morning associate with light sensitivity and nausea. She also wonders if she might have a bladder infection as she has dysuria and frequency. No associated flank pain or fevers. PD PAST MEDICAL HISTORY - Past Medical History Cardiovascular: Congestive heart failure, Hypertension Respiratory: Asthma, Shortness of breath Neuro: Headaches, Migraines, Seizure disorder Endocrine/Autoimmune: HyPOthyroidism GI: None ENROLLMENT CONSULTANT: None : Incontinence, Frequency, Kidney stones HEENT: None Psych: Depression, Anxiety, Bipolar disorder Musculoskeletal: Osteoarthritis, Fibromyalgia, Chronic back pain Derm: None - Past Surgical History Past Surgical History: Yes General: Other Ortho: Arthroscopic surgery /ENROLLMENT CONSULTANT: section, Hysterectomy, Oophrectomy, Breast reduction HEENT: Tonsil/Adenoidectomy - Present Medications Home Medications: Ambulatory Orders Medication Instructions Recorded Confirmed Buspirone HCl 10 mg PO BID 03/29/23 09/26/23 Butorphanol Tartrate 1 spray INH Q4HR PRN 03/29/23 09/26/23 Divalproex [Rola Taylor] 250 mg PO BID 03/29/23 09/26/23 Escitalopram [Lexapro] 40 mg PO DAILY 03/29/23 09/26/23 Fluticasone [Flonase] 1 spray INH BID 03/29/23 09/26/23 Gabapentin [Neurontin] 300 mg PO TID 03/29/23 09/26/23 Hydrocodone/Acetaminophen 1 each PO Q4HR PRN 03/29/23 09/26/23 [Hydrocodone-Acetamin 10-325 mg] Metoprolol Succinate [Toprol Xl] 25 mg PO DAILY 03/29/23 09/26/23 Rosuvastatin Calcium [Crestor] 10 mg PO DAILY 03/29/23 09/26/23 amLODIPine [Norvasc] 10 mg PO DAILY 03/29/23 09/26/23 tiZANidine [Zanaflex] 4 mg PO Q8H 03/29/23 09/26/23 Levothyroxine Sodium [Unithroid] 150 mcg PO DAILY 09/26/23 09/26/23 Nitrofurantoin [Macrobid] 1 cap PO BID #10 cap 11/05/23 - Allergies Allergies/Adverse Reactions: Allergies Allergy/AdvReac Type Severity Reaction Status Date / Time chlorpromazine HCl * Allergy Unknown Verified 11/05/23 14:12 [From Thorazine] droperidol [From Inapsine] Allergy Unknown Verified 11/05/23 14:12 ketorolac tromethamine * Allergy Unknown Verified 11/05/23 14:12 [From Toradol] meperidine HCl * Allergy Unknown Verified 11/05/23 14:12 [From Demerol] metoclopramide HCl * Allergy Unknown Verified 11/05/23 14:12 [From Reglan] morphine Allergy Unknown Verified 11/05/23 14:12 prochlorperazine edisylate * Allergy Unknown Verified 11/05/23 14:12 [From Compazine] prochlorperazine maleate * Allergy Unknown Verified 11/05/23 14:12 [From Compazine] tramadol Allergy Unknown Verified 11/05/23 14:12 [id number] Antimigraine Allergy Unknown Verified 11/05/23 14:12 Agents lorazepam [From Ativan] AdvReac Anxiety Verified 11/05/23 14:12 - Social History Does the pt smoke?: Yes Smoking Status: Current every day smoker Does the pt drink ETOH?: No Does the pt have substance abuse?: No - Immunizations Immunizations are current?: Yes Immunizations: TDAP current <10years, Other immun not current - POLST Patient has POLST: No POLST Status: Full Code (Daughter is her DURABLE POWER OF CEMETERY COUNSELOR. She would like to be full code, but if there is significant cognitive deficits as a result of her illnesses, she wants us to let her go.) PD ED PE NORMAL - Vitals Vital signs reviewed: Yes - General General: Alert and oriented X 3 - HEENT HEENT: Atraumatic, PERRL, EOMI, Other (She is light sensitive) - Neck Neck: Supple, no meningeal sign, No bony TTP - Back Back: No CVA TTP Results - Vitals Vitals: Vital Signs - 24 hr 11/05/23 14:09 Temperature 36.5 C Heart Rate 90 Respiratory 20 Rate Blood Pressure 140/80 H O2 Saturation 97 Oxygen O2 Source [Without Activity] Room air O2 Source Room air - Labs Labs: Laboratory Tests 11/05/23 11/05/23 11/05/23 14:35 14:35 15:52 WBC 8.8 RBC 4.77 Hgb 13.9 Hct 43.3 MCV 90.8 MCH 29.1 MCHC 32.1 RDW 13.9 Plt Count 272 MPV 9.7 Neut # (Auto) 5.5 Lymph # (Auto) 2.4 [place] # (Auto) 0.6 Eos # (Auto) 0.3 Baso # (Auto) 0.1 Absolute Nucleated RBC 0.00 Nucleated RBC % 0.0 Sodium 140 Potassium 3.9 Chloride 104 Carbon Dioxide 27 Anion Gap 9.0 BUN 27 H Creatinine 0.7 Estimated GFR (MDRD) 85 L Glucose 118 H Calcium 9.6 Total Bilirubin 0.3 AST 12 ALT 12 Alkaline Phosphatase 82 Total Protein 6.4 Albumin 4.3 Globulin 2.1 Albumin/Globulin Ratio 2.0 Lipase 14 Urine Color YELLOW Urine Clarity CLOUDY Urine pH 6.0 Ur Specific [place] 1.020 Urine Protein NEGATIVE Urine Glucose (UA) NEGATIVE Urine Ketones NEGATIVE Urine Occult Blood TRACE-INTA Urine Nitrite NEGATIVE Urine Bilirubin NEGATIVE Urine Urobilinogen 0.2 (NORMAL) Ur Leukocyte Esterase LARGE H Urine RBC 0-5 Urine WBC >25 H Urine WBC Clumps PRESENT Ur Squamous Epith Cells FEW Squamous Urine Bacteria Many H Ur Microscopic Review INDICATED Urine Culture Comments INDICATED PD Medical Decision Making - ED course ED course: The headache is gradual in onset and similar to prior headaches. As such I doubt subarachnoid hemorrhage. There are no infectious symptoms such as fever or stiff neck to make me suspect meningitis. No carbon monoxide exposure by history. She was treated with her "usual" medications which included 2 mg of IM Dilaudid and IM Zofran. She is feeling better after that. Also Macrobid for apparent UTI/cystitis. No symptoms of pyelonephritis. Departure - Departure Disposition: 01 Home, Self Care Clinical Impression: Migraine, UTI (urinary tract infection) Condition: Good Record reviewed to determine appropriate education?: Yes Instructions: ED Headache Migraine, ED UTI Cystitis Female Prescriptions: Nitrofurantoin [Macrobid] 1 cap PO BID #10 cap Comments: I sent your prescription electronically to [facility] in [place]. You do have evidence of a bladder infection today. We will culture your urine, the results should be done in 48-72 hours. If an antibiotic change is necessary we will call you. Return if worse in the meantime, especially if you develop increasing flank pain, fevers, or cannot keep down the medication. Given that you have frequent urine cultures I would ask you to follow-up with your urologist for consideration for further evaluation and treatment for frequent UTIs.Do not drink or drive today. Forms: PCP List
[2023-11-05 16:43] LABS: BILIRUBIN,URINE NEGATIVE (NEGATIVE); CLARITY,URINE CLOUDY (CLEAR); GLUCOSE, URINE (UA) NEGATIVE (NEGATIVE); KETONES,URINE (UA) NEGATIVE (NEGATIVE); LEUKOCYTE ESTERASE, URINE LARGE (NEGATIVE); NITRITE,URINE NEGATIVE (NEGATIVE); OCCULT BLOOD,URINE TRACE-INTA (NEGATIVE); PROTEIN,URINE NEGATIVE (NEGATIVE); UROBILINOGEN,URINE 0.2 (NORMAL) E.U./dL (NORMAL)
[2023-11-05] MEDS: ONDANSETRON 4 MG/2 ML VIAL IM STA (16:54)
[2023-11-05] MEDS: HYDROmorphone 2 MG/ML VIAL IM STA (16:54)
[2023-11-05 16:55] LABS: BACTERIA,URINE Many /HPF (None Seen); RBC,URINE 0-5 /HPF (0-5); SQUAMOUS EPITHELIAL CELL,UR FEW Squamous (<= Few); WBC CLUMPS,URINE PRESENT; WBC,URINE >25 /HPF (0-5)
[2023-11-05] MEDS: NITROFURANTOIN MACRO 100 MG CAPSULE PO STA (17:09)
[2023-11-05 19:23] VITALS: BP 148/90; O2SAT 99
== END 2023-11-05 17:57 | disposition home or self-care (01) ==
LOC: ED 13:55
DX: G43.009 Migraine without aura, not intractable, without status migrainosus (principal); N39.0 Urinary tract infection, site not specified; I11.0 Hypertensive heart disease with heart failure; I50.9 Heart failure, unspecified; E03.9 Hypothyroidism, unspecified; M79.7 Fibromyalgia; Z87.442 Personal history of urinary calculi; Z79.899 Other long term (current) drug therapy; F17.200 Nicotine dependence, unspecified, uncomplicated
CPT/HCPCS: 36415; 80053; 81001; 83690; 85025; 87086; 96372; 99283; A9270; J1170; 81003

== ENCOUNTER 2023-11-27 17:21 | Emergency (ER) | payer MEDICARE, MEDICAID ==
[2023-11-27 17:48] LABS: BASOPHILS # (AUTO) 0.1 10^3/uL (0.0-0.1); BASOPHILS % (AUTO) 0.5 %; EOSINOPHILS # (AUTO) 0.3 10^3/uL (0.0-0.7); EOSINOPHILS % (AUTO) 2.5 %; HCT - HEMATOCRIT 43.2 % (37.0-47.0); HGB - HEMOGLOBIN 14.2 g/dL (12.0-16.0); LYMPHOCYTES # (AUTO) 3.2 10^3/uL (1.5-3.5); LYMPHOCYTES % (AUTO) 25.9 %; MEAN CORPUSCULAR HEMOGLOBIN 29.8 pg (27.0-31.0); MEAN CORPUSCULAR HGB CONC 32.9 g/dL (32.0-36.0); MEAN CORPUSCULAR VOLUME 90.6 fL (81.0-99.0); MEAN PLATELET VOLUME 9.5 fL (7.9-10.8); MONOCYTES # (AUTO) 0.8 10^3/uL (0.0-1.0); MONOCYTES % (AUTO) 6.8 %; NEUTROPHILS # (AUTO) 7.9 10^3/uL (1.5-6.6); PLT - PLATELET COUNT 273 10^3/uL (130-450); RED BLOOD COUNT 4.77 10^6/uL (4.20-5.40); RED CELL DISTRIBUTION WIDTH 13.8 % (12.0-15.0); WHITE BLOOD COUNT 12.4 x10^3/uL (4.8-10.8)
[2023-11-27 18:21] LABS: ALBUMIN 4.3 g/dL (3.2-5.5); ALBUMIN/GLOBULIN RATIO 1.7 (1.0-2.2); BILIRUBIN,TOTAL 0.2 mg/dL (0.2-1.0); CALCIUM 10.1 mg/dL (8.5-10.3); TOTAL PROTEIN 6.8 g/dL (6.4-8.9)
[2023-11-27 21:14] VITALS: BP 126/93; O2SAT 96
--- NOTE | 2023-11-27 21:15 | ED Physician Documentation ---
History of Present Illness - Stated complaint Stated Complaint: CHEST PX - Chief complaint Chief Complaint: Cardiac - History obtained from History obtained from: Patient - History of Present Illness Timing: How many days ago (3) Pain level max: 6 Pain level now: 2 - Additonal information Additional information: Patient presents to the emergency department stating she has had epigastric abdominal pain along with nausea and vomiting for 3 days. Has right-sided chest pain, states it feels like pressure radiates of the right side of her neck, it comes and goes. Nothing makes it better or worse. She states she took Zofran today without relief. No head, neck, back pain. No hematemesis. No blood in the stool. No diarrhea or constipation. She states that she has been having chills and generalized bodyaches as well. Review of Systems Constitutional: reports: Chills, Myalgias. 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 : Incontinence, Frequency, Kidney stones HEENT: None Psych: Depression, Anxiety, Bipolar disorder Musculoskeletal: Osteoarthritis, Fibromyalgia, Chronic back pain Derm: None - Past Surgical History Past Surgical History: Yes General: Other Ortho: Arthroscopic surgery /MANGANESE HEATER: section, Hysterectomy, Oophrectomy, Breast reduction HEENT: Tonsil/Adenoidectomy - Present Medications Home Medications: Ambulatory Orders Medication Instructions Recorded Confirmed Buspirone HCl 10 mg PO BID 03/29/23 09/26/23 Butorphanol Tartrate 1 spray INH Q4HR PRN 03/29/23 09/26/23 Divalproex [Rola Taylor] 250 mg PO BID 03/29/23 09/26/23 Escitalopram [Lexapro] 40 mg PO DAILY 03/29/23 09/26/23 Fluticasone [Flonase] 1 spray INH BID 03/29/23 09/26/23 Gabapentin [Neurontin] 300 mg PO TID 03/29/23 09/26/23 Hydrocodone/Acetaminophen 1 each PO Q4HR PRN 03/29/23 09/26/23 [Hydrocodone-Acetamin 10-325 mg] Metoprolol Succinate [Toprol Xl] 25 mg PO DAILY 03/29/23 09/26/23 Rosuvastatin Calcium [Crestor] 10 mg PO DAILY 03/29/23 09/26/23 amLODIPine [Norvasc] 10 mg PO DAILY 03/29/23 09/26/23 tiZANidine [Zanaflex] 4 mg PO Q8H 03/29/23 09/26/23 Levothyroxine Sodium [Unithroid] 150 mcg PO DAILY 09/26/23 09/26/23 Nitrofurantoin [Macrobid] 1 cap PO BID #10 cap 11/05/23 - Allergies Allergies/Adverse Reactions: Allergies Allergy/AdvReac Type Severity Reaction Status Date / Time chlorpromazine HCl * Allergy Unknown Verified 11/27/23 17:34 [From Thorazine] droperidol [From Inapsine] Allergy Unknown Verified 11/27/23 17:34 ketorolac tromethamine * Allergy Unknown Verified 11/27/23 17:34 [From Toradol] meperidine HCl * Allergy Unknown Verified 11/27/23 17:34 [From Demerol] metoclopramide HCl * Allergy Unknown Verified 11/27/23 17:34 [From Reglan] morphine Allergy Unknown Verified 11/27/23 17:34 prochlorperazine edisylate * Allergy Unknown Verified 11/27/23 17:34 [From Compazine] prochlorperazine maleate * Allergy Unknown Verified 11/27/23 17:34 [From Compazine] tramadol Allergy Unknown Verified 11/27/23 17:34 [id number] Antimigraine Allergy Unknown Verified 11/27/23 17:34 Agents lorazepam [From Ativan] AdvReac Anxiety Verified 11/27/23 17:34 - Social History Does the pt smoke?: Yes Smoking Status: Current every day smoker Does the pt drink ETOH?: No Does the pt have substance abuse?: No - Immunizations Immunizations are current?: Yes Immunizations: TDAP current <10years, Other immun not current - POLST Patient has POLST: No POLST Status: Full Code (Daughter is her [employer]. She would like to be full code, but if there is significant cognitive deficits as a result of her illnesses, she wants us to let her go.) PD ED PE NORMAL - Vitals Vital signs reviewed: Yes - General General: Alert and oriented X 3, No acute distress - HEENT HEENT: Moist mucous membranes - Neck Neck: Supple, no meningeal sign - Cardiac Cardiac: RRR, Strong equal pulses - Respiratory Respiratory: No respiratory distress, Clear bilaterally, Other (No chest wall tenderness no crepitus. No ecchymosis) - Abdomen Abdomen: Normal bowel sounds, Soft, Non distended, Other (Tender palpation epigastric without peritoneal signs.) - Back Back: No CVA TTP, No spinal TTP - Derm Derm: Warm and dry - Extremities Extremities: No edema, No calf tenderness / cord - Neuro Neuro: Alert and oriented X 3 - Psych Psych: Normal mood, Normal affect Results - Vitals Vitals: Vital Signs - 24 hr 11/27/23 11/27/23 11/27/23 17:30 19:33 21:00 Temperature 36.0 C L 36.5 C Heart Rate 79 80 80 Respiratory 20 18 15 Rate Blood Pressure 163/82 H 156/98 H 126/93 H O2 Saturation 97 97 96 Oxygen O2 Source [] Room air O2 Source Room air - EKG (time done) 1733 EKG releavant findings:: EKG personally interpreted by author of this note. Relevant findings are: Rate: Rate (enter#) (80) Rhythm: NSR [place]: Normal Intervals: Normal MO QRS: Normal Ischemia: Normal ST segments, Q waves (avf) - Labs Labs: Laboratory Tests 11/27/23 11/27/23 11/27/23 17:43 17:43 17:43 WBC 12.4 H RBC 4.77 Hgb 14.2 Hct 43.2 MCV 90.6 MCH 29.8 MCHC 32.9 RDW 13.8 Plt Count 273 MPV 9.5 Neut # (Auto) 7.9 H Lymph # (Auto) 3.2 Lewis # (Auto) 0.8 Eos # (Auto) 0.3 Baso # (Auto) 0.1 Absolute Nucleated RBC 0.00 Nucleated RBC % 0.0 Sodium 140 Potassium 4.0 Chloride 104 Carbon Dioxide 28 Anion Gap 8.0 BUN 21 H Creatinine 1.0 Estimated GFR (MDRD) 56 L Glucose 122 H Calcium 10.1 Total Bilirubin 0.2 AST 15 ALT 13 Alkaline Phosphatase 79 Troponin I High Sens 9.0 Total Protein 6.8 Albumin 4.3 Globulin 2.5 Albumin/Globulin Ratio 1.7 Lipase 18 Nasal Adenovirus (PCR) Nasal B. parapertussis DNA (PCR) Nasal Coronavir 229E PCR Nasal Coronavir HKU1 PCR Nasal Coronavir NL63 PCR Nasal Coronavir OC43 PCR Nasal Enterovir/Rhinovir PCR Nasal Influenza B PCR Nasal Influenza A PCR Nasal Parainfluen 1 PCR Nasal Parainfluen 2 PCR Nasal Parainfluen 3 PCR Nasal Parainfluen 4 PCR Nasal RSV (PCR) Nasal B.pertussis DNA PCR Nasal C.pneumoniae (PCR) Micah Human Metapneumo PCR Nasal M.pneumoniae (PCR) Nasal SARS-CoV-2 (PCR) 11/27/23 20:39 WBC RBC Hgb Hct MCV MCH MCHC RDW Plt Count MPV Neut # (Auto) Lymph # (Auto) Lewis # (Auto) Eos # (Auto) Baso # (Auto) Absolute Nucleated RBC Nucleated RBC % Sodium Potassium Chloride Carbon Dioxide Anion Gap BUN Creatinine Estimated GFR (MDRD) Glucose Calcium Total Bilirubin AST ALT Alkaline Phosphatase Troponin I High Sens Total Protein Albumin Globulin Albumin/Globulin Ratio Lipase Nasal Adenovirus (PCR) NOT DETECTED Nasal B. parapertussis DNA (PCR) NOT DETECTED Nasal Coronavir 229E PCR NOT DETECTED Nasal Coronavir HKU1 PCR NOT DETECTED Nasal Coronavir NL63 PCR NOT DETECTED Nasal Coronavir OC43 PCR NOT DETECTED Nasal Enterovir/Rhinovir PCR NOT DETECTED Nasal Influenza B PCR NOT DETECTED Nasal Influenza A PCR NOT DETECTED Nasal Parainfluen 1 PCR NOT DETECTED Nasal Parainfluen 2 PCR NOT DETECTED Nasal Parainfluen 3 PCR NOT DETECTED Nasal Parainfluen 4 PCR NOT DETECTED Nasal RSV (PCR) NOT DETECTED Nasal B.pertussis DNA PCR NOT DETECTED Nasal C.pneumoniae (PCR) NOT DETECTED Micah Human Metapneumo PCR NOT DETECTED Nasal M.pneumoniae (PCR) NOT DETECTED Nasal SARS-CoV-2 (PCR) NOT DETECTED PD Medical Decision Making - ED course Complexity details: reviewed results, re-evaluated patient, considered differential, d/w patient ED course: No acute abnormalities on laboratory testing. Negative respiratory PCR. Negative high sensitive troponin. No acute findings on EKG. Pain controlled with Dilaudid, nausea controlled with Zofran. We will continue supportive care and have her follow-up with her doctor for further care. Patient counseled re garding signs and symptoms for which I believe and urgent re-evaluation would be necessary. Patient with good understanding of and agreement to plan and is comfortable going home at this time This document was made in part using voice recognition software. While efforts are made to proofread this document, sound alike and grammatical errors may occur. Departure - Departure Disposition: 01 Home, Self Care Clinical Impression: Atypical chest pain Abdominal pain Qualifiers: Abdominal location: unspecified location Qualified Code(s): R10.9 - Unspecified abdominal pain Vomiting Qualifiers: Vomiting type: unspecified Nausea presence: with nausea Qualified Code(s): R11.2 - Nausea with vomiting, unspecified Condition: Good Instructions: ED Abdominal Pain Female Non-Specific Abdominal Pain, ED Chest Pain Atypical Unkn Cause Follow-Up: your,doctor in 1 week [Other] Comments: Your testing does not show any acute abnormalities today. Please follow-up with your doctor for further care. Please return if you worsen. Forms: PCP List
[2023-11-27] MEDS: ONDANSETRON 4 MG/2 ML VIAL IM STA (21:17)
[2023-11-27] MEDS: HYDROmorphone 1 MG/ML CARPUJECT IM STA ×2 (21:18→22:00)
[2023-11-27 21:41] LABS: B. PARAPERTUSSIS- RESP PCR PAN NOT DETECTED; B. PERTUSSIS- RESP PCR PANEL NOT DETECTED; C. PNEUMONIAE- RESP PCR PANEL NOT DETECTED; CORONAVIRUS 229E-RESP PCR NOT DETECTED; CORONAVIRUS HKU1-RESP PCR NOT DETECTED; CORONAVIRUS NL63-RESP PCR NOT DETECTED; CORONAVIRUS OC43-RESP PCR NOT DETECTED; HUMAN METAPNEUMOVIRUS NOT DETECTED; INFLUENZA A- RESP PCR PANEL NOT DETECTED; INFLUENZA B - RESP PCR PANEL NOT DETECTED; M. PNEUMONIAE- RESP PCR PANEL NOT DETECTED; PARAINFLUENZA VIRUS 1 NOT DETECTED; PARAINFLUENZA VIRUS 2 NOT DETECTED; PARAINFLUENZA VIRUS 3 NOT DETECTED; PARAINFLUENZA VIRUS 4 NOT DETECTED; RHINOVIRUS/ENTEROVIRUS NOT DETECTED; RSV- RESP PCR PANEL NOT DETECTED; SARS-CoV-2 -RESP PCR PANEL NOT DETECTED
== END 2023-11-27 22:13 | disposition home or self-care (01) ==
LOC: ED 17:21
DX: R07.89 Other chest pain (principal); R10.13 Epigastric pain; R11.2 Nausea with vomiting, unspecified; E03.9 Hypothyroidism, unspecified; F17.200 Nicotine dependence, unspecified, uncomplicated; Z79.899 Other long term (current) drug therapy
CPT/HCPCS: 36415; 80053; 83690; 84484; 85025; 87633; 93005; 96372; 99283; 99284; J1170